=== PATIENT | male | born 1980 | race Caucasian/White ===

== ENCOUNTER 2016-08-12 16:27 | Inpatient (IN) | payer MEDICAID ==
[~2016-08-12] VITALS: Ht 185.4 cm; Wt 89.3 kg
[~2016-08-12 16:27] MED LIST: ALBU0.084; ASEN10SU3 SL; ASENAPINE MALEATE SL; BENZ0.5T14 PO; INSLISPI SC; Insulin Detemir SC; LAM100T OR; LEVO500T21 PO; METR500T PO; OLAN20TA13 PO; SERT-135 PO; SERT-160 PO
[2016-08-12] MEDS ORDERED: LORazepam 2MG/ML-1ML VIAL ONE (16:37)
[2016-08-12] MEDS ORDERED: LORazepam 2MG/ML-1ML VIAL IM ONE (17:00)
[2016-08-12] MEDS ORDERED: SODIUM CHLORIDE 0.9% 1,000 ML IVB ONE (17:00)
[2016-08-12 18:12] LABS: Basophils # (auto) 0 uL; Basophils % (auto) 0.2 % (0.0-2.0); DEFINITIVE VIEW TRANSMISSION; Eosinophils # (auto) 0.1 uL; Eosinophils % (auto) 0.9 % (0.0-7.0); Hemoglobin 20.1 g/dL (13.5-17.5); Lymphocytes # (auto) 3.4 uL; Lymphocytes % (auto) 19.4 % (10.0-50.0); Mean Corpuscular Hemoglobin 29.7 pg (28.0-32.0); Mean Corpuscular Hgb Conc. 32.3 g/dL (32.0-36.0); Mean Corpuscular Volume 91.8 fL (80.0-100.0); Mean Platelet Volume 10.5 fL (7.4-10.4); Monocytes # (auto) 1.2 uL; Monocytes % (auto) 6.7 % (0.0-12.0); Neutrophils # (auto) 12.7 uL; Neutrophils % (auto) 72.8 % (37.0-80.0); Platelet Count (auto) 236 10^3/uL (140-450); Red Cell Distribution Width 14.3 % (11.6-16.0); White Blood Cell 17.4 10^3/uL (4.4-10.8)
[2016-08-12 18:20] LABS: Albumin 3.8 g/dL (3.4-5.0); Anion Gap 23 (5-15); Blood Urea Nitrogen 13 mg/dL (7-18); Carbon Dioxide 11 mmol/L (21-32); Chloride 109 mmol/L (98-107); Glucose 315 mg/dL (74-106); Magnesium 2.7 mg/dL (1.6-2.6); Potassium 3.6 mmol/L (3.5-5.1); Sodium 143 mmol/L (136-145)
[2016-08-12 18:22] LABS: Aspartate Aminotransferase 22 U/L (15-37); BUN/Creatinine Ratio 9.4; GFR African American 75 mL/min; GFR Non-African American 62 mL/min
[2016-08-12 18:25] LABS: Alkaline Phosphatase 182 U/L (45-117); Bilirubin, Total 0.3 mg/dL (0.2-1.0)
[2016-08-12 18:42] LABS: Hematocrit 62.3 % (41.0-53.0)
[2016-08-12] MEDS ORDERED: InsuLIN R (HUMAN) 100 UNITS in SODIUM CHL 0.9% 99 ML IV SCH (19:14)
[2016-08-12] MEDS ORDERED: SODIUM CHLORIDE 0.9% 1,000 ML IV ONE (19:15)
[2016-08-12] MEDS ORDERED: cefTRIAXone 1GM/50ML D5W 50 ML IV ONE (19:15)
[2016-08-12] MEDS ORDERED: DEXTROSE (50%) 50ML SYRG IV PRN ×2 (19:15→20:00)
[2016-08-12] MEDS: SODIUM CHLORIDE 0.9% 1,000 ML IV SCH (19:42)
[2016-08-12] MEDS ORDERED: NITROGLYCERIN 0.4 MG SL TAB SL PRN (20:00)
[2016-08-12] MEDS ORDERED: ACCU-CHEK COMFORT CURVE STRIP VI SCH (20:00)
[2016-08-12] MEDS ORDERED: TEMAZEPAM 15 MG CAP PO PRN (20:00)
[2016-08-12] MEDS ORDERED: ALBUTEROL SULF 2.5 MG/0.5ML(0.5%) NEB SOLN NEB PRN (20:00)
[2016-08-12] MEDS ORDERED: LACTULOSE 20Gm/30ML SOLN PO PRN (20:00)
[2016-08-12] MEDS ORDERED: PROMETHAZINE HCL 25 MG/ML 1ML IV PRN (20:00)
[2016-08-12] MEDS ORDERED: LORazepam 0.5 MG TAB PO PRN (20:00)
[2016-08-12] MEDS ORDERED: ACETAMINOPHEN 500 MG TAB PO PRN (20:00)
[2016-08-12] MEDS ORDERED: LORazepam 2MG/ML-1ML VIAL IV PRN (20:00)
[2016-08-12] MEDS ORDERED: HYDROcodone-ACET 5/325MG TAB PO PRN (20:00)
[2016-08-12] MEDS ORDERED: MORPHINE SULF INJ 2 MG/ML SYRINGE 1ML IV PRN ×2 (20:00)
[2016-08-12 20:05] LABS: Urine Bilirubin Negative (Negative); Urine Blood 1+ /uL (Negative); Urine Color Yellow (Yellow); Urine Glucose 4+ mg/dL (Normal); Urine Ketone TRACE (Negative); Urine Nitrite Negative (Negative); Urine RBC 2 /hpf (0 - 3); Urine Urobilinogen Normal (Negative); Urine pH 5.5 (5.0-8.0)
[2016-08-12 20:16] LABS: Amylase 55 U/L (25-115)
[2016-08-12] MEDS: ACCU-CHEK COMFORT CURVE STRIP VI SCH (20:23)
[2016-08-12] MEDS: InsuLIN REG 1unit/0.01ml Soln (100units/ml) SC SCH (20:31)
[2016-08-12 22:00] VITALS: BP 138/90
[2016-08-12] MEDS: ASENAPINE MALEATE 10 MG SL SCH (22:00)
[2016-08-12] MEDS: BENZTROPINE MESY 0.5 MG TAB PO SCH (22:17)
[2016-08-12] MEDS: lamoTRIgine 100 MG TAB PO SCH (22:17)
[2016-08-12] MEDS: OLANZapine 5 MG TAB PO SCH (22:17)
[2016-08-12] MEDS ORDERED: SODIUM CHLORIDE 0.9% 1,000 ML IV SCH (23:14)
[2016-08-13] VITALS (7 sets, daily range): BP systolic 121–147; BP diastolic 71–91
[2016-08-13] MEDS ORDERED: SODIUM CHLORIDE 0.9% 1,000 ML IV SCH (01:14)
[2016-08-13] MEDS: ACCU-CHEK COMFORT CURVE STRIP VI SCH ×6 (01:35→21:25)
[2016-08-13] MEDS: InsuLIN REG 1unit/0.01ml Soln (100units/ml) SC SCH ×6 (01:36→22:22)
[2016-08-13] MEDS: SODIUM CHLORIDE 0.9% 1,000 ML IV SCH ×3 (01:37→04:52)
[2016-08-13 06:01] LABS: Basophils # (auto) 0 uL; DEFINITIVE VIEW TRANSMISSION; Eosinophils # (auto) 0 uL; Hematocrit 53.8 % (41.0-53.0); Hemoglobin 17.7 g/dL (13.5-17.5); Lymphocytes # (auto) 0.5 uL; Lymphocytes % (auto) 3.2 % (10.0-50.0); Mean Corpuscular Hemoglobin 29.4 pg (28.0-32.0); Mean Platelet Volume 9.5 fL (7.4-10.4); Monocytes # (auto) 0.5 uL; Monocytes % (auto) 3.1 % (0.0-12.0); Neutrophils # (auto) 15.4 uL; Neutrophils % (auto) 93.7 % (37.0-80.0); Platelet Count (auto) 209 10^3/uL (140-450); Red Cell Distribution Width 13.9 % (11.6-16.0); White Blood Cell 16.4 10^3/uL (4.4-10.8)
[2016-08-13 06:11] LABS: Albumin 3.2 g/dL (3.4-5.0); BUN/Creatinine Ratio 12.7; Bilirubin, Total 0.5 mg/dL (0.2-1.0); Calcium 7.7 mg/dL (8.5-10.1); Potassium 3.9 mmol/L (3.5-5.1)
[2016-08-13] MEDS: ALBUTEROL SULF 2.5 MG/0.5ML(0.5%) NEB SOLN NEB SCH ×3 (06:33→18:00)
[2016-08-13] MEDS: cefTRIAXone 1GM/50ML D5W 50 ML IV SCH (09:08)
[2016-08-13] MEDS ORDERED: AZITHROMYCIN 500MG/D5W 250ML 250 ML IV SCH (10:00)
[2016-08-13] MEDS: ASENAPINE MALEATE 10 MG SL SCH ×2 (10:00→21:55)
[2016-08-13] MEDS: ENOXAPARIN SOD 40 MG/0.4 ML SYRINGE SC SCH (10:40)
[2016-08-13] MEDS: SERTRALINE HCL 50 MG TAB PO SCH (10:41)
[2016-08-13] MEDS: PANTOPRAZOLE 40 MG TAB PO SCH (10:42)
[2016-08-13] MEDS: lamoTRIgine 100 MG TAB PO SCH ×2 (10:42→21:22)
[2016-08-13 14:49] LABS: BUN/Creatinine Ratio 9.9; Calcium 7.9 mg/dL (8.5-10.1); Potassium 3.1 mmol/L (3.5-5.1)
[2016-08-13] MEDS ORDERED: POTASSIUM CHL 20 Meq TABLET PO ONE (15:30)
[2016-08-13] MEDS ORDERED: MAGNESIUM SULFATE 1GM/100ML 100 ML IV SCH (16:00)
[2016-08-13] MEDS: MAGNESIUM SULFATE 1GM/100ML 100 ML IV SCH ×2 (17:56→19:06)
[2016-08-13] MEDS: BENZTROPINE MESY 0.5 MG TAB PO SCH (21:22)
[2016-08-13] MEDS: OLANZapine 5 MG TAB PO SCH (21:23)
[2016-08-13] MEDS: INSULIN DETEMIR(LEVEMIR) 1unit/0.01ml Soln (100units/ml) SC SCH (22:23)
[2016-08-14] VITALS: BP 131/90
[2016-08-14] MEDS: ALBUTEROL SULF 2.5 MG/0.5ML(0.5%) NEB SOLN NEB SCH ×3 (00:07→11:18)
[2016-08-14 03:50] VITALS: BP 128/80
[2016-08-14 06:07] LABS: Basophils # (auto) 0 uL; Basophils % (auto) 0.4 % (0.0-2.0); DEFINITIVE VIEW TRANSMISSION; Eosinophils # (auto) 0.1 uL; Eosinophils % (auto) 0.7 % (0.0-7.0); Hematocrit 54.8 % (41.0-53.0); Lymphocytes # (auto) 2.2 uL; Lymphocytes % (auto) 22.6 % (10.0-50.0); Mean Corpuscular Hemoglobin 29.2 pg (28.0-32.0); Mean Corpuscular Hgb Conc. 32.9 g/dL (32.0-36.0); Mean Corpuscular Volume 88.7 fL (80.0-100.0); Mean Platelet Volume 9.4 fL (7.4-10.4); Monocytes # (auto) 0.6 uL; Monocytes % (auto) 6.7 % (0.0-12.0); Neutrophils # (auto) 6.7 uL; Neutrophils % (auto) 69.6 % (37.0-80.0); Platelet Count (auto) 216 10^3/uL (140-450); White Blood Cell 9.6 10^3/uL (4.4-10.8)
[2016-08-14 06:16] LABS: Calcium 8.7 mg/dL (8.5-10.1); Potassium 4.3 mmol/L (3.5-5.1)
[2016-08-14 06:18] LABS: BUN/Creatinine Ratio 7.1
[2016-08-14] MEDS: ACCU-CHEK COMFORT CURVE STRIP VI SCH ×2 (06:22→11:48)
[2016-08-14] MEDS: InsuLIN REG 1unit/0.01ml Soln (100units/ml) SC SCH ×2 (06:22→11:48)
[2016-08-14 08:00] VITALS: BP 131/79
[2016-08-14] MEDS: cefTRIAXone 1GM/50ML D5W 50 ML IV SCH (09:13)
[2016-08-14] MEDS: ASENAPINE MALEATE 10 MG SL SCH (10:00)
[2016-08-14] MEDS: lamoTRIgine 100 MG TAB PO SCH (10:19)
[2016-08-14] MEDS: PANTOPRAZOLE 40 MG TAB PO SCH (10:19)
[2016-08-14] MEDS: ENOXAPARIN SOD 40 MG/0.4 ML SYRINGE SC SCH (10:19)
[2016-08-14] MEDS: SERTRALINE HCL 50 MG TAB PO SCH (10:19)
[2016-08-14] MEDS: INSULIN DETEMIR(LEVEMIR) 1unit/0.01ml Soln (100units/ml) SC SCH (10:20)
[2016-08-14] MEDS ORDERED: LAM100T PO (10:24)
[2016-08-14 12:00] VITALS: BP 140/94
== END 2016-08-14 13:05 | disposition home or self-care (01) | DRG 720 ==
LOC: EDBD 16:27 → ER 16:30 → TELE 16:31 → DOU IN ICU 22:39
PROVIDERS: ADMIT Internal Medicine; ATTEND Hospitalist
DX: A41.9 Sepsis, unspecified organism (principal); E10.10 Type 1 diabetes mellitus with ketoacidosis without coma; N17.9 Acute kidney failure, unspecified; J18.1 Lobar pneumonia, unspecified organism; J45.909 Unspecified asthma, uncomplicated; I10 Essential (primary) hypertension; F20.9 Schizophrenia, unspecified; G40.409 Other generalized epilepsy and epileptic syndromes, not intractable, without status epilepticus; F32.9 Major depressive disorder, single episode, unspecified; F41.9 Anxiety disorder, unspecified; Z86.73 Personal history of transient ischemic attack (TIA), and cerebral infarction without residual deficits; Z88.8 Allergy status to other drugs, medicaments and biological substances; Z91.018 Allergy to other foods
CPT/HCPCS: 36415; 51702; 70450; 71010; 80048; 80053; 80061; 80307; 80320; 81001; 82010; 82150; 82962; 83036; 83605; 83690; 83735; 85025; 85652; 87040; 87081; 87086; 94640; 95819; 96361; 96365; 96372; 99291; J0696; J1815

== ENCOUNTER 2016-10-04 17:37 | Emergency (ER) | payer MEDICAID ==
[~2016-10-04] VITALS: Ht 182.9 cm; Wt 81.6 kg
[~2016-10-04 17:37] MED LIST changes: -LAM100T OR; +LAM100T PO; -LEVO500T21 PO; -METR500T PO; -SERT-135 PO
[2016-10-04 17:49] VITALS: BP 138/86
[2016-10-04] MEDS ORDERED: IBUPROFEN 600 MG TAB PO ONE (20:15)
== END 2016-10-04 20:23 | disposition home or self-care (01) ==
LOC: ER 17:40
DX: S92.351A Displaced fracture of fifth metatarsal bone, right foot, initial encounter for closed fracture (principal); Z88.8 Allergy status to other drugs, medicaments and biological substances; Z79.899 Other long term (current) drug therapy; E11.9 Type 2 diabetes mellitus without complications; J45.909 Unspecified asthma, uncomplicated; X58.XXXA Exposure to other specified factors, initial encounter; Y93.89 Activity, other specified; Y92.89 Other specified places as the place of occurrence of the external cause; Y99.8 Other external cause status
CPT/HCPCS: 29515; 73630

== ENCOUNTER 2017-05-19 22:51 | Inpatient (IN) | payer MEDICAID ==
[~2017-05-19] VITALS: Ht 182.9 cm; Wt 90.7 kg
[2017-05-19 23:57] LABS: Basophils # (auto) 0.1 uL; Eosinophils # (auto) 0.2 uL; Lymphocytes # (auto) 2.4 uL
[2017-05-19 23:58] LABS: Basophils % (auto) 0.9 % (0.0-2.0); Hematocrit 54.8 % (41.0-53.0); Hemoglobin 19.1 g/dL (13.5-17.5); Lymphocytes % (auto) 25.6 % (10.0-50.0); Mean Corpuscular Hemoglobin 31.6 pg (28.0-32.0); Mean Corpuscular Hgb Conc. 34.7 g/dL (32.0-36.0); Mean Corpuscular Volume 91.1 fL (80.0-100.0); Monocytes # (auto) 0.6 uL; Monocytes % (auto) 6.8 % (0.0-12.0); Neutrophils # (auto) 6.1 uL; Neutrophils % (auto) 64.7 % (37.0-80.0); Nucleated Red Blood Cells % 0.3 %; Platelet Count (auto) 301 10^3/uL (140-450); Red Blood Cells 6.02 10^6/uL (4.5-5.90); Red Cell Distribution Width 13.5 % (11.8-14.3); White Blood Cell 9.4 10^3/uL (4.4-10.8)
[2017-05-20 00:03] LABS: Urine Amorphous Crystal FEW /hpf (None Seen); Urine Bacteria NONE SEEN /hpf (None Seen); Urine Blood Negative /uL (Negative); Urine Mucus FEW (None Seen); Urine Specific Gravity 1.009 (1.001-1.035); Urine WBC 2 /hpf (0 - 3)
[2017-05-20 00:10] LABS: INR 1.04 (0.9-1.15); Prothrombin Time 11.3 sec (9.37-12.3)
[2017-05-20 00:11] LABS: Albumin 3.7 g/dL (3.4-5.0); BUN/Creatinine Ratio 9.2; Bilirubin, Total 0.4 mg/dL (0.2-1.0); Calcium 10.4 mg/dL (8.5-10.1); Potassium 3.8 mmol/L (3.5-5.1); Total Protein 8.5 g/dL (6.4-8.2)
[2017-05-20 07:16] LABS: Amylase 25 U/L (25-115); Lipase 67 U/L (73-393)
[2017-05-20] MEDS ORDERED: AZTREONAM 1GM INJ 1 GM in D5W 5% 50 ML IV ONE (07:30)
[2017-05-20] MEDS ORDERED: SODIUM CHLORIDE 0.9% 1,000 ML IV ONE (07:30)
[2017-05-20] MEDS ORDERED: ONDANSETRON HCL 4 MG/2 ML VIAL IV ONE (07:45)
[2017-05-20] MEDS: AZITHROMYCIN 500MG/ 250ML 250 ML IV ONE ×2 (07:46→08:47)
[2017-05-20] MEDS ORDERED: LACTULOSE 20Gm/30ML SOLN PO PRN (10:45)
[2017-05-20] MEDS ORDERED: ALBUTEROL SULF 2.5 MG/0.5ML(0.5%) NEB SOLN NEB PRN (10:45)
[2017-05-20] MEDS ORDERED: LORazepam 0.5 MG TAB PO PRN (10:45)
[2017-05-20] MEDS ORDERED: OSELTAMIVIR 75 MG CAP PO ONE (10:45)
[2017-05-20] MEDS ORDERED: MORPHINE SULFATE 4 MG/ML SYR/VIAL IV PRN ×2 (10:45)
[2017-05-20] MEDS ORDERED: PROMETHAZINE HCL 25 MG/ML 1ML IV PRN (10:45)
[2017-05-20] MEDS ORDERED: ACETAMINOPHEN 500 MG TAB PO PRN (10:45)
[2017-05-20] MEDS ORDERED: DEXTROSE (50%) 50ML SYRG IV PRN ×2 (10:45→13:15)
[2017-05-20] MEDS ORDERED: HYDROcodone-ACET 5/325MG TAB PO PRN (10:45)
[2017-05-20] MEDS ORDERED: TEMAZEPAM 15 MG CAP PO PRN (10:45)
[2017-05-20] MEDS ORDERED: NITROGLYCERIN 0.4 MG SL TAB SL PRN (10:45)
[2017-05-20] MEDS ORDERED: SODIUM CHLORIDE 0.9 % NEB SOLN 3ML NEB ONE (11:04)
[2017-05-20] MEDS: SODIUM CHLORIDE 0.9% 1,000 ML IV SCH ×2 (11:10→23:56)
[2017-05-20] MEDS: FAMOTIDINE (10MG/ML) 2ML VL IV SCH ×2 (11:10→21:17)
[2017-05-20] MEDS: cefTRIAXone 1GM/10ml IVPUSH 10 ML IV SCH (11:10)
[2017-05-20] MEDS ORDERED: InsuLIN REG 1unit/0.01ml Soln (100units/ml) SC SCH (11:30)
[2017-05-20] MEDS ORDERED: ACCU-CHEK COMFORT CURVE STRIP VI SCH (11:30)
[2017-05-20] MEDS ORDERED: INSULIN LANTUS (GLARGINE) 1 /0.01ml (100units/ml) SC SCH (11:45)
[2017-05-20 11:50] VITALS: BP 154/97
[2017-05-20] MEDS ORDERED: INSU70IN3 SC ×2 (12:01)
[2017-05-20] MEDS ORDERED: SERT-274 PO (12:01)
[2017-05-20] MEDS: ALBUTEROL SULF 2.5 MG/0.5ML(0.5%) NEB SOLN NEB SCH ×2 (12:35→17:50)
[2017-05-20] MEDS: ACCU-CHEK COMFORT CURVE STRIP VI SCH ×2 (16:36→20:00)
[2017-05-20] MEDS: InsuLIN REG 1unit/0.01ml Soln (100units/ml) SC SCH ×2 (16:37→20:00)
[2017-05-20 17:00] VITALS: BP 138/83
[2017-05-20] MEDS ORDERED: OLANZapine 5 MG TAB PO SCH (18:00)
[2017-05-20] MEDS ORDERED: OLANZAPINE PO SCH (18:00)
[2017-05-20] MEDS: lamoTRIgine 100 MG TAB PO SCH (21:16)
[2017-05-20] MEDS: INSULIN 70/30 1unit/0.01ml Susp (100units/ml) SC SCH (21:19)
[2017-05-20] MEDS: ASENAPINE MALEATE 10 MG SL SCH (21:19)
[2017-05-20 21:36] VITALS: BP 138/83
[2017-05-20 22:00] VITALS: BP 135/71
[2017-05-20] MEDS ORDERED: OSELTAMIVIR 75 MG CAP PO SCH (22:00)
[2017-05-20] MEDS ORDERED: BENZTROPINE MESY 0.5 MG TAB PO SCH (22:00)
[2017-05-20] MEDS ORDERED: ASENAPINE MALEATE SL SCH (22:00)
[2017-05-21] MEDS: ALBUTEROL SULF 2.5 MG/0.5ML(0.5%) NEB SOLN NEB SCH ×3 (00:51→13:28)
[2017-05-21] MEDS: InsuLIN REG 1unit/0.01ml Soln (100units/ml) SC SCH ×4 (04:00→12:33)
[2017-05-21] MEDS: ACCU-CHEK COMFORT CURVE STRIP VI SCH ×4 (04:05→12:32)
[2017-05-21 05:34] VITALS: BP 143/84
[2017-05-21 06:45] LABS: Basophils # (auto) 0.1 uL; Basophils % (auto) 0.6 % (0.0-2.0); Eosinophils # (auto) 0.1 uL; Eosinophils % (auto) 0.7 % (0.0-7.0); Hematocrit 50.9 % (41.0-53.0); Hemoglobin 17.2 g/dL (13.5-17.5); Lymphocytes # (auto) 1.5 uL; Mean Corpuscular Hemoglobin 31.4 pg (28.0-32.0); Mean Corpuscular Hgb Conc. 33.9 g/dL (32.0-36.0); Mean Corpuscular Volume 92.6 fL (80.0-100.0); Monocytes # (auto) 0.7 uL; Monocytes % (auto) 6.9 % (0.0-12.0); Neutrophils # (auto) 8.2 uL; Neutrophils % (auto) 77.8 % (37.0-80.0); Nucleated Red Blood Cells % 0.1 %; Platelet Count (auto) 267 10^3/uL (140-450); Red Blood Cells 5.49 10^6/uL (4.5-5.90); Red Cell Distribution Width 13.6 % (11.8-14.3); White Blood Cell 10.6 10^3/uL (4.4-10.8)
[2017-05-21 07:04] LABS: Albumin 3.2 g/dL (3.4-5.0); BUN/Creatinine Ratio 13.3; Total Protein 7.3 g/dL (6.4-8.2)
[2017-05-21 09:00] VITALS: BP 140/66
[2017-05-21] MEDS: FAMOTIDINE (10MG/ML) 2ML VL IV SCH (09:45)
[2017-05-21] MEDS: cefTRIAXone 1GM/10ml IVPUSH 10 ML IV SCH (09:45)
[2017-05-21] MEDS: ASENAPINE MALEATE 10 MG SL SCH (09:46)
[2017-05-21] MEDS: lamoTRIgine 100 MG TAB PO SCH (09:46)
[2017-05-21] MEDS ORDERED: AZITHROMYCIN 500MG/ 250ML 250 ML IV SCH (10:00)
[2017-05-21] MEDS ORDERED: SERTRALINE HCL PO SCH (10:00)
[2017-05-21] MEDS ORDERED: SERTRALINE HCL 50 MG TAB PO SCH (10:00)
[2017-05-21] MEDS: INSULIN 70/30 1unit/0.01ml Susp (100units/ml) SC SCH (10:28)
[2017-05-21 13:00] VITALS: BP 125/92
[2017-05-21] MEDS ORDERED: ALBUAER3 IN (13:48)
[2017-05-21] MEDS ORDERED: LEVO500T21 PO (13:48)
[2017-05-21] MEDS ORDERED: IPRIH INH (13:48)
[2017-05-21] MEDS ORDERED: IOHEXOL 300 MG/ML 100ML BOTTLE IJ ONE (15:46)
[2017-05-21 16:42] VITALS: BP 125/92
[2017-05-21 17:00] VITALS: BP 152/94
== END 2017-05-21 18:00 | disposition home or self-care (01) ==
LOC: ER 22:53 → TELE 22:54 → TELE-CENTR 05-20 11:46
PROVIDERS: ADMIT Internal Medicine; ATTEND Internal Medicine
DX: K76.89 Other specified diseases of liver (principal); J18.1 Lobar pneumonia, unspecified organism; F20.9 Schizophrenia, unspecified; E83.52 Hypercalcemia; D18.03 Hemangioma of intra-abdominal structures; I10 Essential (primary) hypertension; F31.9 Bipolar disorder, unspecified; E10.9 Type 1 diabetes mellitus without complications; J45.909 Unspecified asthma, uncomplicated; F41.9 Anxiety disorder, unspecified; Z88.8 Allergy status to other drugs, medicaments and biological substances; Z91.018 Allergy to other foods; Z79.899 Other long term (current) drug therapy; Z79.4 Long term (current) use of insulin; Z86.73 Personal history of transient ischemic attack (TIA), and cerebral infarction without residual deficits
CPT/HCPCS: 36415; 71046; 74176; 74178; 76705; 80053; 80061; 81001; 82150; 82962; 83036; 83690; 85025; 85610; 85730; 86850; 86900; 86901; 87040; 87804; 94640; 96361; 96367; 96374; 96375; J1815; J2405; J3490; J7060

== ENCOUNTER 2017-05-22 07:16 | Emergency (ER) | payer MEDICAID ==
[~2017-05-22] VITALS: Ht 185.4 cm; Wt 99.8 kg
[~2017-05-22 07:16] MED LIST changes: +ALBUAER3 IN; -BENZ0.5T14 PO; -INSLISPI SC; +INSU70IN3 SC; +IPRIH INH; -Insulin Detemir SC; -LAM100T PO; +LEVO500T21 PO; -SERT-160 PO; +SERT-274 PO
[2017-05-22 08:09] LABS: Basophils # (auto) 0.1 uL; Basophils % (auto) 0.7 % (0.0-2.0); Eosinophils # (auto) 0.1 uL; Eosinophils % (auto) 0.7 % (0.0-7.0); Hematocrit 49.4 % (41.0-53.0); Hemoglobin 16.7 g/dL (13.5-17.5); Lymphocytes # (auto) 1.2 uL; Lymphocytes % (auto) 13.1 % (10.0-50.0); Mean Corpuscular Hemoglobin 31.7 pg (28.0-32.0); Mean Corpuscular Hgb Conc. 33.9 g/dL (32.0-36.0); Mean Corpuscular Volume 93.4 fL (80.0-100.0); Monocytes # (auto) 0.4 uL; Monocytes % (auto) 4.5 % (0.0-12.0); Neutrophils # (auto) 7.7 uL; Platelet Count (auto) 251 10^3/uL (140-450); Red Blood Cells 5.28 10^6/uL (4.5-5.90); Red Cell Distribution Width 13.7 % (11.8-14.3); White Blood Cell 9.5 10^3/uL (4.4-10.8)
[2017-05-22 08:25] LABS: Albumin 3.3 g/dL (3.4-5.0); BUN/Creatinine Ratio 8.9; Bilirubin, Total 0.6 mg/dL (0.2-1.0); Calcium 8.5 mg/dL (8.5-10.1); Potassium 4.4 mmol/L (3.5-5.1); Total Protein 7.7 g/dL (6.4-8.2)
[2017-05-22] MEDS ORDERED: SODIUM CHLORIDE 0.9% 1,000 ML IV ONE (08:42)
[2017-05-22] MEDS ORDERED: LEVETIRACETAM INJ 1,000 MG in D5W 5% 100 ML IV ONE (08:45)
[2017-05-22] MEDS ORDERED: LORazepam 2MG/ML-1ML VIAL IV ONE (08:45)
[2017-05-22] MEDS ORDERED: LEVETIRACETAM INJ 1,000 MG in SODIUM CHL 0.9% 100 ML IV ONE (09:15)
[2017-05-22 11:28] LABS: Alcohol, Urine < 3.0 mg/dL (0-5); Amphetamine Screen, Urine NEGATIVE (NEGATIVE); Barbiturate Scree,Urine NEGATIVE (NEGATIVE); Benzodiazephine Screen, Urine NEGATIVE (NEGATIVE); Cannabinoid Screen, Urine POSITIVE (NEGATIVE); Cocaine Screen, Urine NEGATIVE (NEGATIVE); Opiate Scree,Urine NEGATIVE (NEGATIVE); Phencyclidine Screen, Urine NEGATIVE (NEGATIVE)
[2017-05-22 11:29] LABS: Urine Bacteria NONE SEEN /hpf (None Seen); Urine Blood Negative /uL (Negative); Urine Specific Gravity 1.024 (1.001-1.035); Urine WBC 16 /hpf (0 - 3)
[2017-05-22 11:42] VITALS: BP 145/85
== END 2017-05-22 14:00 | disposition home or self-care (01) ==
LOC: ER 07:16 → EDUNIT# 07:16 → ER 14:00
DX: G40.909 Epilepsy, unspecified, not intractable, without status epilepticus (principal); E11.65 Type 2 diabetes mellitus with hyperglycemia; F12.10 Cannabis abuse, uncomplicated; E44.1 Mild protein-calorie malnutrition; N39.0 Urinary tract infection, site not specified; J45.909 Unspecified asthma, uncomplicated; F32.9 Major depressive disorder, single episode, unspecified; F20.9 Schizophrenia, unspecified; F41.9 Anxiety disorder, unspecified; Z79.4 Long term (current) use of insulin
CPT/HCPCS: 36415; 71045; 80053; 80307; 81001; 82962; 83735; 85025; 93005; 96365; 96375; 99285; J1953; J2060; J7030; J7060

== ENCOUNTER 2017-08-08 07:32 | Emergency (ER) | payer MEDICAID ==
[~2017-08-08] VITALS: Ht 185.4 cm; Wt 90.7 kg
[2017-08-08 10:35] VITALS: BP 144/102
== END 2017-08-08 10:36 | disposition home or self-care (01) ==
LOC: ER 07:34
DX: S92.344A Nondisplaced fracture of fourth metatarsal bone, right foot, initial encounter for closed fracture (principal); E11.65 Type 2 diabetes mellitus with hyperglycemia; I10 Essential (primary) hypertension; J45.909 Unspecified asthma, uncomplicated; Z91.018 Allergy to other foods; Z88.8 Allergy status to other drugs, medicaments and biological substances; W54.1XXA Struck by dog, initial encounter; Y93.89 Activity, other specified; Y92.89 Other specified places as the place of occurrence of the external cause; Y99.8 Other external cause status
CPT/HCPCS: 29515; 73630; 82962

== ENCOUNTER 2017-09-03 05:43 | Emergency (ER) | payer MEDICAID ==
[~2017-09-03] VITALS: Ht 182.9 cm; Wt 90.7 kg
[2017-09-03 06:00] VITALS: BP 160/99
== END 2017-09-03 07:49 | disposition home or self-care (01) ==
LOC: ER 05:45
DX: S05.01XA Injury of conjunctiva and corneal abrasion without foreign body, right eye, initial encounter (principal); J45.909 Unspecified asthma, uncomplicated; E11.9 Type 2 diabetes mellitus without complications; Z79.899 Other long term (current) drug therapy; X58.XXXA Exposure to other specified factors, initial encounter; Y93.9 Activity, unspecified; Y92.89 Other specified places as the place of occurrence of the external cause; Y99.8 Other external cause status; Z88.8 Allergy status to other drugs, medicaments and biological substances

== ENCOUNTER 2018-02-27 17:26 | Emergency (ER) | payer MEDICAID ==
[~2018-02-27] VITALS: Ht 182.9 cm; Wt 81.6 kg
[~2018-02-27 17:26] MED LIST changes: +KEP500T PO; -LEVO500T21 PO
[2018-02-27 17:44] VITALS: BP 154/100
== END 2018-02-27 21:25 | disposition home or self-care (01) ==
LOC: ER 17:31
DX: S61.452A Open bite of left hand, initial encounter (principal); L03.114 Cellulitis of left upper limb; J45.909 Unspecified asthma, uncomplicated; E11.9 Type 2 diabetes mellitus without complications; Z91.09 Other allergy status, other than to drugs and biological substances; Z79.4 Long term (current) use of insulin; W54.0XXA Bitten by dog, initial encounter; Y93.89 Activity, other specified; Y92.098 Other place in other non-institutional residence as the place of occurrence of the external cause; Y99.8 Other external cause status
CPT/HCPCS: 73130

== ENCOUNTER 2018-06-22 19:23 | Inpatient (IN) | payer MEDICAID ==
[~2018-06-22] VITALS: Ht 182.9 cm; Wt 82.9 kg
[2018-06-22 21:08] LABS: Basophils # (auto) 0.1 uL; Nucleated Red Blood Cells % 0.1 %
[2018-06-22 21:10] LABS: Basophils % (auto) 0.9 % (0.0-2.0); Eosinophils # (auto) 0.2 uL; Hematocrit 55.6 % (41.0-53.0); Hemoglobin 18.5 g/dL (13.5-17.5); Lymphocytes # (auto) 1.6 uL; Lymphocytes % (auto) 13.1 % (10.0-50.0); Mean Corpuscular Hemoglobin 30.2 pg (28.0-32.0); Mean Corpuscular Hgb Conc. 33.2 g/dL (32.0-36.0); Mean Corpuscular Volume 90.9 fL (80.0-100.0); Monocytes # (auto) 0.7 uL; Monocytes % (auto) 5.3 % (0.0-12.0); Neutrophils # (auto) 9.8 uL; Neutrophils % (auto) 78.7 % (37.0-80.0); Platelet Count (auto) 309 10^3/uL (140-450); Red Blood Cells 6.12 10^6/uL (4.5-5.90); Red Cell Distribution Width 13.7 % (11.8-14.3); White Blood Cell 12.5 10^3/uL (4.4-10.8)
[2018-06-22 21:20] LABS: Potassium 3.7 mmol/L (3.5-5.1)
[2018-06-22 21:24] LABS: Albumin 3.2 g/dL (3.4-5.0); Calcium 8.7 mg/dL (8.5-10.1)
[2018-06-22 21:27] LABS: BUN/Creatinine Ratio 7.6
[2018-06-22 21:30] LABS: Bilirubin, Total 0.4 mg/dL (0.2-1.0); Total Protein 7.8 g/dL (6.4-8.2)
[2018-06-23] MEDS ORDERED: LORazepam 2MG/ML-1ML VIAL ONE (07:32)
[2018-06-23] MEDS ORDERED: LEVETIRACETAM INJ 1,000 MG in D5W 5% 100 ML IV ONE ×2 (07:45→08:15)
[2018-06-23] MEDS ORDERED: LORazepam 2MG/ML-1ML VIAL IV ONE (08:15)
[2018-06-23] MEDS ORDERED: NITROGLYCERIN 0.4 MG SL TAB SL PRN (09:45)
[2018-06-23] MEDS ORDERED: DEXTROSE (50%) 50ML SYRG IV PRN (09:45)
[2018-06-23] MEDS ORDERED: MORPHINE SULF INJ 2 MG/ML SYRINGE 1ML IV PRN (09:45)
[2018-06-23] MEDS ORDERED: LORazepam 2MG/ML-1ML VIAL IV PRN (09:45)
[2018-06-23] MEDS ORDERED: ASENAPINE MALEATE SL SCH (10:00)
[2018-06-23] MEDS: LEVETIRACETAM INJ 750 MG in D5W 5% 100 ML IV SCH ×2 (10:00→21:49)
[2018-06-23] MEDS: SERTRALINE HCL 50 MG TAB PO SCH (10:28)
[2018-06-23] MEDS ORDERED: IOHEXOL 300 MG/ML 100ML BOTTLE IJ ONE (10:38)
[2018-06-23] MEDS: ACCU-CHEK COMFORT CURVE STRIP VI SCH ×3 (11:45→21:49)
[2018-06-23] MEDS: InsuLIN REG 1unit/0.01ml Soln (100units/ml) SC SCH ×3 (11:45→21:50)
[2018-06-23] MEDS ORDERED: OLANZapine 5 MG TAB PO SCH (18:00)
[2018-06-23 20:00] VITALS: BP 116/71
--- NOTE | 2018-06-23 20:00 | NUR ---
Telemetry admit from [facility] admitted to Telemetry unit. Patient oriented to GERALD LINDSEY OCA, primary RN, unit, room, bed, and unit policies regarding patient care and visiting hours. Patient now on continuous telemetry monitoring, tele box #[id number] and telemetry reading on arrival to unit is sinus tach. Patient placed on bedside oxygen, weighed by bedscale and encouraged to call if they need something. All questions and concerns addressed, patient verbalized understanding. Bed in lowest locked position, call light within reach, side rails up x2. Will continue to monitor Q1hr and PRN.
[2018-06-23 22:00] VITALS: BP 116/71
[2018-06-24 04:38] VITALS: BP 132/72
[2018-06-24] MEDS: ACCU-CHEK COMFORT CURVE STRIP VI SCH ×2 (06:39→11:28)
[2018-06-24] MEDS: InsuLIN REG 1unit/0.01ml Soln (100units/ml) SC SCH ×2 (06:40→11:43)
--- NOTE | 2018-06-24 07:20 | NUR ---
Opening Shift Note Received report from Karina RIDLEY. Assumed care of patient, asleep. No S/S of distress/SOB or pain. Noted padded side rails. Placed call light within reach, kept 2 side rails sup, will continue to monitor for changes Q1hr and PRN.
[2018-06-24 08:00] VITALS: BP 120/71
[2018-06-24 09:00] VITALS: BP 120/71
[2018-06-24] MEDS: SERTRALINE HCL 50 MG TAB PO SCH (09:38)
[2018-06-24] MEDS ORDERED: LEVE750T15 PO (09:42)
--- NOTE | 2018-06-24 09:50 | NUR ---
Dr. Kortney Tariq at bedside.
[2018-06-24 10:00] LABS: Basophils # (auto) 0.1 uL; Eosinophils # (auto) 0.1 uL; Lymphocytes # (auto) 1.4 uL; Monocytes # (auto) 0.6 uL; Nucleated Red Blood Cells % 0.1 %
--- NOTE | 2018-06-24 10:00 | NUR ---
PATIENT REFUSED HOME HEALTH SERVICES PER LILLIAN, CORRECTIONAL THERAPY DIRECTOR.
[2018-06-24 10:02] LABS: Basophils % (auto) 0.7 % (0.0-2.0); Eosinophils % (auto) 0.8 % (0.0-7.0); Hemoglobin 19.3 g/dL (13.5-17.5); Lymphocytes % (auto) 15.1 % (10.0-50.0); Mean Corpuscular Hemoglobin 30.3 pg (28.0-32.0); Mean Corpuscular Hgb Conc. 33.1 g/dL (32.0-36.0); Mean Corpuscular Volume 91.7 fL (80.0-100.0); Monocytes % (auto) 6.4 % (0.0-12.0); Neutrophils # (auto) 7.4 uL; Platelet Count (auto) 305 10^3/uL (140-450); Red Blood Cells 6.35 10^6/uL (4.5-5.90); Red Cell Distribution Width 14.2 % (11.8-14.3); White Blood Cell 9.6 10^3/uL (4.4-10.8)
[2018-06-24 10:03] LABS: Hematocrit 58.2 % (41.0-53.0)
--- NOTE | 2018-06-24 10:15 | NUR ---
CALLED DR. ANNA MONTALVO'S OFFICE. INFORMED PATIENT HAS METAL IMPLANTS IN HIS BRAIN, SAID TO CANCEL THE TEST, AND SHE HAS NO FURTHER RECOMMENDATIONS, WILL SIGN OFF. INFORMED WARDSPERSON BHAVNA THAT SAID TEST IS CANCELLED.
[2018-06-24] MEDS: LEVETIRACETAM INJ 750 MG in D5W 5% 100 ML IV SCH (10:30)
[2018-06-24 13:00] VITALS: BP 124/82
--- NOTE | 2018-06-24 13:45 | NUR ---
CALLED DR. ANNA MONTALVO'S OFFICE TO MAKE A NEUROLOGY APPOINTMENT FOR THE PATIENT. WINDOW TRIMMER SAID TO GET REFERRAL LETTER FIRST FROM PRIMARY CARE DOCTOR.
--- NOTE | 2018-06-24 14:35 | NUR ---
CALLED DR. IVAN DOWNS'S OFFICE. CALL WENT STRAIGHT TO VOICEMAIL, LEFT A MESSAGE ABOUT GI CLEARANCE. WILL WAIT FOR CALL BACK.
--- NOTE | 2018-06-24 14:38 | NUR ---
MD returned call Dr. Sy's operating room assistant returned call, updated on patient status and reason for call, said she will ff up Dr Sy to see the patient if can be cleared today for discharge. Continue care.
--- NOTE | 2018-06-24 15:05 | NUR ---
Dr. Sy at bedside. GI consult done. Received verbal order that patient is cleared GI nj. Instructed patient to have colonoscopy as outpatient. Patient verbalized understanding.
[2018-06-24 15:25] VITALS: BP 124/82
--- NOTE | 2018-06-24 15:30 | NUR ---
TOOK PICTURE OF SCRATCH ON RIGHT UPPER EXTREMITY. PATIENT SAID IT CAME FROM A "DOG BITE". FILLED OUT WOUND CARE FORM REFERENCE FOR DISCHARGE.
--- NOTE | 2018-06-24 16:21 | NUR ---
assessment Patient is a 38 year old male who is alert and oriented. Patients cognitive abilities are intact. Prior to admission patient lived home with friends and functioned independently. Patient informed me he is able to care for his own ADLs. Per patient he will return home to his prior living arrangements post discharge and family will transport him home. Patient has no need for DME. Patients PCP is Dr Gonzalez. Patient has no post discharge needs. Patient feels safe returning home on discharge. I informed patient he has a right to speak to a health and social care teacher regarding all care. I informed patient he has a right to participate in any and all discharge planning. Patient is aware of visiting hours on the hospital floor. I informed patient he has a right to privacy. Patient does not have a POA and advanced directive. I have offered patient information on POA and advanced directives. I informed the patient the advantages and benefits of having an Advanced Directive. Patient verbalized understanding and agreed to discharge plan. Per consult home health safety evaluation. Patient is refusing home health safety eval. RN notified. Addendum: 06/24/18 at 1624 by Terra Teixeira Amended: Links added.
--- NOTE | 2018-06-24 16:42 | NUR ---
Discharge instructions given as ordered. Encourage to follow up with PMD as instructed. All questions and concerns addressed. Patient verbalized understanding. IV removed with catheter intact, pressure dressing applied. Telemetry unit returned to [facility]. Patient went home ambulatory w/ steady gait with all personal belongings, accompanied by family member. No distress noted at time of departure.
== END 2018-06-24 18:31 | disposition home health service (06) | DRG 53 ==
LOC: ER 19:23 → TELE 06-23 09:52 → TELE-CENTR 06-23 20:05
PROVIDERS: ADMIT Internal Medicine; ATTEND Internal Medicine
DX: G40.409 Other generalized epilepsy and epileptic syndromes, not intractable, without status epilepticus (principal); F20.9 Schizophrenia, unspecified; B34.9 Viral infection, unspecified; Z79.4 Long term (current) use of insulin; F41.9 Anxiety disorder, unspecified; D18.03 Hemangioma of intra-abdominal structures; E11.9 Type 2 diabetes mellitus without complications; F31.9 Bipolar disorder, unspecified; J45.909 Unspecified asthma, uncomplicated; K64.9 Unspecified hemorrhoids; K76.9 Liver disease, unspecified; M47.816 Spondylosis without myelopathy or radiculopathy, lumbar region; Z79.899 Other long term (current) drug therapy; Z80.0 Family history of malignant neoplasm of digestive organs; Z82.5 Family history of asthma and other chronic lower respiratory diseases; Z91.19 Patient's noncompliance with other medical treatment and regimen; Z91.018 Allergy to other foods
CPT/HCPCS: 36415; 70450; 74176; 74177; 80053; 82962; 85025; 96365; 96375; G0378; J1815; J7060

== ENCOUNTER 2020-08-29 01:27 | Inpatient (IN) | payer MEDICAID ==
[~2020-08-29] VITALS: Ht 182.9 cm; Wt 76.0 kg
[~2020-08-29 01:27] MED LIST changes: -KEP500T PO; +LEVE750T15 PO; +OLAN20TA PO; -OLAN20TA13 PO; -SERT-274 PO; +SERT50TA19 PO
[2020-08-29 02:18] LABS: Basophils # (auto) 0.1 10 ^3/uL (0-0.2); Basophils % (auto) 1.2 % (0.0-2.0); Eosinophils # (auto) 0.6 10 ^3/uL (0-0.8); Eosinophils % (auto) 7.9 % (0.0-7.0); Hematocrit 47.7 % (41.0-53.0); Hemoglobin 16.2 g/dL (13.5-17.5); Lymphocytes # (auto) 1.7 10 ^3/uL (0.4-5.4); Lymphocytes % (auto) 23.6 % (10.0-50.0); Mean Corpuscular Hemoglobin 29.8 pg (28.0-32.0); Mean Corpuscular Volume 87.6 fL (80.0-100.0); Monocytes # (auto) 0.6 10 ^3/uL (0-1.3); Monocytes % (auto) 7.5 % (0.0-12.0); Neutrophils # (auto) 4.4 10 ^3/uL (1.6-8.6); Neutrophils % (auto) 59.8 % (37.0-80.0); Nucleated Red Blood Cells % 0.4 %; Platelet Count (auto) 239 10^3/uL (140-450); Red Blood Cells 5.45 10^6/uL (4.5-5.90); Red Cell Distribution Width 13.8 % (11.8-14.3); White Blood Cell 7.3 10^3/uL (4.4-10.8)
[2020-08-29 02:37] LABS: Albumin 3.3 g/dL (3.4-5.0); Potassium 3.9 mmol/L (3.5-5.1)
[2020-08-29 02:42] LABS: Bilirubin, Total 0.4 mg/dL (0.2-1.0); Total Protein 7.5 g/dL (6.4-8.2)
[2020-08-29] MEDS ORDERED: ONDANSETRON HCL 4 MG/2 ML VIAL IV PRN (06:15)
[2020-08-29] MEDS ORDERED: DEXTROSE (50%) 50ML SYRG IV PRN (06:15)
[2020-08-29] MEDS ORDERED: DIVA250T12 PO (06:32)
[2020-08-29] MEDS ORDERED: BENZ1TAB2 PO (06:32)
[2020-08-29] MEDS ORDERED: CARI1CAP4 PO (06:32)
[2020-08-29] MEDS: ACCU-CHEK COMFORT CURVE STRIP VI SCH ×4 (08:00→21:44)
[2020-08-29] MEDS: InsuLIN REG 1unit/0.01ml Soln (100units/ml) SC SCH ×4 (08:02→21:44)
[2020-08-29] MEDS ORDERED: ASPirin-EC 81 mg tab PO SCH (10:00)
[2020-08-29 10:15] VITALS: BP 136/107
[2020-08-29] MEDS ORDERED: INSU100I26 SC (10:32)
[2020-08-29] MEDS ORDERED: INSUINJ2 SC (10:32)
[2020-08-29 11:19] LABS: Basophils # (auto) 0.1 10 ^3/uL (0-0.2); Basophils % (auto) 0.8 % (0.0-2.0); Eosinophils # (auto) 0.4 10 ^3/uL (0-0.8); Eosinophils % (auto) 5.2 % (0.0-7.0); Hematocrit 47.6 % (41.0-53.0); Hemoglobin 16.4 g/dL (13.5-17.5); Lymphocytes # (auto) 1.6 10 ^3/uL (0.4-5.4); Lymphocytes % (auto) 23.8 % (10.0-50.0); Mean Corpuscular Hemoglobin 29.9 pg (28.0-32.0); Mean Corpuscular Hgb Conc. 34.3 g/dL (32.0-36.0); Mean Corpuscular Volume 87.1 fL (80.0-100.0); Monocytes # (auto) 0.5 10 ^3/uL (0-1.3); Monocytes % (auto) 7.7 % (0.0-12.0); Neutrophils # (auto) 4.2 10 ^3/uL (1.6-8.6); Neutrophils % (auto) 62.5 % (37.0-80.0); Nucleated Red Blood Cells % 0.2 %; Platelet Count (auto) 244 10^3/uL (140-450); Red Blood Cells 5.47 10^6/uL (4.5-5.90); Red Cell Distribution Width 13.6 % (11.8-14.3); White Blood Cell 6.7 10^3/uL (4.4-10.8)
[2020-08-29 11:26] LABS: Calcium 8.8 mg/dL (8.5-10.1); Potassium 4.1 mmol/L (3.5-5.1)
[2020-08-29 11:29] LABS: BUN/Creatinine Ratio 19.7
[2020-08-29 13:00] VITALS: BP 145/94
[2020-08-29] MEDS ORDERED: levETIRAcetam 500 MG TAB PO SCH (15:00)
[2020-08-29] MEDS: levETIRAcetam 500 MG TAB PO SCH ×2 (16:20→21:43)
[2020-08-29 17:00] VITALS: BP 133/88
[2020-08-29 22:00] VITALS: BP 129/85
[2020-08-29] MEDS ORDERED: ATORVASTATIN 20 MG TAB PO SCH (22:00)
[2020-08-29] MEDS ORDERED: INSULIN NPH Isophane (HUMAN) 1unit/0.01ml Susp(100units/ml) SC SCH (22:00)
[2020-08-30 01:16] VITALS: BP 129/85
[2020-08-30] MEDS ORDERED: SERTRALINE HCL 50 MG TAB PO SCH (07:00)
[2020-08-30] MEDS ORDERED: CARIPRAZINE HCL 6 MG PO SCH ×2 (07:00)
[2020-08-30] MEDS ORDERED: BENZTROPINE MESY 0.5 MG TAB PO SCH (07:00)
== END 2020-08-30 01:40 | disposition short-term general hospital (02) | DRG 55 ==
LOC: ER 01:29 → TELE 06:10 → TELE-WESTW 10:24
PROVIDERS: ADMIT Hospitalist; ATTEND Hospitalist
DX: S06.5X0A Traumatic subdural hemorrhage without loss of consciousness, initial encounter (principal); F20.9 Schizophrenia, unspecified; G40.409 Other generalized epilepsy and epileptic syndromes, not intractable, without status epilepticus; E10.9 Type 1 diabetes mellitus without complications; Z20.822 Contact with and (suspected) exposure to COVID-19; F09 Unspecified mental disorder due to known physiological condition; F12.90 Cannabis use, unspecified, uncomplicated; F17.200 Nicotine dependence, unspecified, uncomplicated; F31.9 Bipolar disorder, unspecified; I10 Essential (primary) hypertension; R47.81 Slurred speech; F41.9 Anxiety disorder, unspecified; J45.909 Unspecified asthma, uncomplicated; Z79.4 Long term (current) use of insulin; Z82.5 Family history of asthma and other chronic lower respiratory diseases; Z86.73 Personal history of transient ischemic attack (TIA), and cerebral infarction without residual deficits; Z98.2 Presence of cerebrospinal fluid drainage device; Z79.899 Other long term (current) drug therapy
CPT/HCPCS: 36415; 70450; 70551; 71045; 80048; 80053; 80061; 82962; 84443; 84484; 85025; 85049; 87426; 93005; 93306; 93886; G0378; J1815

== ENCOUNTER 2022-12-30 04:25 | Inpatient (IN) | payer MEDICAID ==
[~2022-12-30] VITALS: Ht 182.9 cm; Wt 84.7 kg
[~2022-12-30 04:25] MED LIST changes: -ALBU0.084; -ASEN10SU3 SL; -ASENAPINE MALEATE SL; +BENZ1TAB6 PO; +CARI1CAP4 PO; +DIVA250T12 PO; +INSU100I26 SC; -INSU70IN3 SC; +INSUINJ2 SC; -IPRIH INH; -OLAN20TA PO; +SERT-206 PO; -SERT50TA19 PO
[2022-12-30 05:24] LABS: Hematocrit 49.4 % (41.0-53.0); Hemoglobin 15.3 g/dL (13.5-17.5); Mean Corpuscular Hemoglobin 30.5 pg (28.0-32.0); Mean Corpuscular Volume 98.3 fL (80.0-100.0); Red Blood Cells 5.02 10^6/uL (4.5-5.90); Red Cell Distribution Width 14.8 % (11.8-14.3); White Blood Cell 25.5 10^3/uL (4.4-10.8)
[2022-12-30 05:37] LABS: Basophils % (manual) 0 (0.0-2.0); Blast Cells 0; Eosinophils % (manual) 0 (0-7); Metamyelocytes % 0; Myelocytes % 0; Promyelocytes % 0; Reactive Lymphocytes 0
[2022-12-30 05:39] LABS: Alanine Aminotransferase 45 U/L (7-40); Albumin 4.6 g/dL (3.2-4.8); Alkaline Phosphatase 147 U/L (46-116); Anion Gap 25.00001 (5-15); Aspartate Aminotransferase 38 U/L (13-40); BUN/Creatinine Ratio 7.3 (10.0-20.0); Bilirubin, Total 0.6 mg/dL (0.2-1.0); Blood Urea Nitrogen 14 mg/dL (9-23); Calcium 9.3 mg/dL (8.7-10.4); Chloride 96 mmol/L (98-107); Potassium 5.1 mmol/L (3.5-5.1); Sodium 131 mmol/L (136-145); Total Protein 8.1 g/dL (5.7-8.2)
[2022-12-30 06:18] LABS: Carbon Dioxide < 10 mmol/L (20-30); Glucose 671 mg/dL (74-106)
[2022-12-30] MEDS ORDERED: DEXTROSE (50%) 50ML SYRG IV PRN ×2 (06:30→10:00)
[2022-12-30] MEDS ORDERED: InsuLIN REG 1unit/0.01ml Soln (100units/ml) IV ONE (06:30)
[2022-12-30] MEDS ORDERED: INSULIN LANTUS (GLARGINE) 1 /0.01ml (100units/ml) SC ONE (06:30)
[2022-12-30] MEDS ORDERED: SODIUM CHLORIDE 0.9% 2,250 ML IV ONE (06:30)
[2022-12-30] MEDS ORDERED: INSULIN DRIP 100 UNIT/100ML 100 ML IV SCH (06:30)
[2022-12-30] MEDS ORDERED: ONDANSETRON HCL 4 MG/2 ML VIAL IV ONE (06:45)
[2022-12-30] MEDS ORDERED: PIPERACILLIN-TAZO 4.5GM 100 ML IV ONE (06:45)
[2022-12-30] MEDS ORDERED: levETIRAcetam 1000 mg/100ml 100 ML IV ONE (06:45)
[2022-12-30] MEDS ORDERED: VANCOMYCIN 1GM/250ML 250 ML IV ONE (06:45)
[2022-12-30 07:00] LABS: Base Excess -15.9 mmol/L (-2.0-2.0)
[2022-12-30 07:12] LABS: Band Neutrophils % (manual) 2; Lymphocytes % (manual) 5 (10.0-50.0); Monocytes % (manual) 9 (0-12)
[2022-12-30 07:13] LABS: Platelet Estimate Adequate
[2022-12-30 07:15] LABS: Lactic Acid w/Reflex 3.7 mmol/L (0.4-2.0)
[2022-12-30 07:18] LABS: INR 1.04 (0.9-1.15); Prothrombin Time 10.9 sec (9.3-11.8)
[2022-12-30 07:30] VITALS: PULSE 118; RESP 22; O2SAT 94
[2022-12-30 08:21] LABS: Urine Bacteria NONE SEEN /hpf (None Seen); Urine Blood Negative /uL (Negative); Urine Clarity Clear (Clear); Urine Protein, UAD Negative (Negative); Urine Specific Gravity 1.023 (1.001-1.035); Urine Urobilinogen Normal (Negative); Urine WBC 8 /hpf (0 - 3)
[2022-12-30 08:23] LABS: Urine Color Straw (Yellow)
[2022-12-30] MEDS: ACCU-CHEK COMFORT CURVE STRIP VI SCH ×12 (08:27→23:58)
[2022-12-30] MEDS: INSULIN DRIP 100 UNIT/100ML 100 ML IV SCH ×7 (09:14→19:46)
[2022-12-30] MEDS ORDERED: MORPHINE SULFATE INJ 2 MG/ml SYRG IV PRN (10:00)
[2022-12-30] MEDS ORDERED: DOCUSATE SOD 100 MG CAP PO PRN (10:00)
[2022-12-30] MEDS ORDERED: ONDANSETRON HCL 4 MG/2 ML VIAL IV PRN (10:00)
[2022-12-30] MEDS ORDERED: LORazepam 2MG/ML-1ML VIAL IV PRN (10:00)
[2022-12-30] MEDS ORDERED: SODIUM CHLORIDE 0.9% 1,000 ML IV SCH ×2 (10:30→14:00)
[2022-12-30] MEDS: levETIRAcetam 1000 mg/100ml 100 ML IV SCH ×2 (10:47→22:35)
[2022-12-30] MEDS: SODIUM CHLORIDE 0.9% 1,000 ML IV SCH ×7 (10:53→23:58)
[2022-12-30 11:05] LABS: Base Excess -12.5 mmol/L (-2.0-2.0)
[2022-12-30 11:19] LABS: Creatinine, Urine 36.75 mg/dL (30.0-125.0)
[2022-12-30] MEDS: PIPERACILLIN-TAZOB 3.375GM 100 ML IV SCH ×3 (12:04→23:55)
[2022-12-30 17:02] LABS: Anion Gap 11 (5-15); Carbon Dioxide 19 mmol/L (20-30); Chloride 107 mmol/L (98-107); Potassium 4.3 mmol/L (3.5-5.1); Sodium 137 mmol/L (136-145)
[2022-12-30 17:03] LABS: Calcium 9.2 mg/dL (8.5-10.1)
[2022-12-30 17:08] LABS: Blood Alcohol 3.5 mg/dL (<10); Glucose 176 mg/dL (74-106)
[2022-12-30 18:54] LABS: Basophils # (auto) 0 10 ^3/uL (0-0.2); Eosinophils # (auto) 0 10 ^3/uL (0-0.8); Hemoglobin 15.1 g/dL (13.5-17.5); Lymphocytes # (auto) 1.2 10 ^3/uL (0.4-5.4)
[2022-12-30 18:55] LABS: Nucleated Red Blood Cells % 0.1 %
[2022-12-30 19:01] LABS: BUN/Creatinine Ratio 10.5 (10.0-20.0); Blood Urea Nitrogen 14 mg/dL (9-23)
[2022-12-30 19:02] LABS: Basophils % (auto) 0.2 % (0.0-2.0); Hematocrit 44.7 % (41.0-53.0); Lymphocytes % (auto) 5.3 % (10.0-50.0); Mean Corpuscular Hemoglobin 31.4 pg (28.0-32.0); Mean Corpuscular Hgb Conc. 33.8 g/dL (32.0-36.0); Mean Corpuscular Volume 92.8 fL (80.0-100.0); Monocytes # (auto) 1.5 10 ^3/uL (0-1.3); Monocytes % (auto) 6.7 % (0.0-12.0); Neutrophils # (auto) 19.5 10 ^3/uL (1.6-8.6); Neutrophils % (auto) 87.8 % (37.0-80.0); Red Blood Cells 4.82 10^6/uL (4.5-5.90); Red Cell Distribution Width 14.3 % (11.8-14.3); White Blood Cell 22.2 10^3/uL (4.4-10.8)
[2022-12-30 20:00] VITALS: PULSE 88; RESP 23; O2SAT 95
[2022-12-30 21:09] LABS: Base Excess -6.6 mmol/L (-2.0-2.0)
[2022-12-30 21:20] LABS: Chloride 108 mmol/L (98-107); Sodium 138 mmol/L (136-145)
[2022-12-30 21:21] LABS: Anion Gap 11 (5-15); Calcium 8.2 mg/dL (8.7-10.4); Carbon Dioxide 19 mmol/L (20-30)
[2022-12-30 21:26] LABS: BUN/Creatinine Ratio 14.8 (10.0-20.0); Blood Urea Nitrogen 18 mg/dL (9-23); Glucose 136 mg/dL (74-106)
[2022-12-30] MEDS: PATIENTS OWN MEDICATION (Divalproex Sodium 250 MG) PO SCH (22:00)
[2022-12-30] MEDS ORDERED: levETIRAcetam 500 MG/5ML INJ IV ONE (22:04)
[2022-12-31] VITALS (7 sets, daily range): BP systolic 117–135; BP diastolic 70–81; PULSE 69–98; RESP 16–19; TEMP 97.6–98.2; O2SAT 92–98
[2022-12-31 00:39] LABS: Chloride 107 mmol/L (98-107); Potassium 3.9 mmol/L (3.5-5.1); Sodium 137 mmol/L (136-145)
[2022-12-31 00:40] LABS: Anion Gap 13 (5-15); Calcium 7.9 mg/dL (8.7-10.4); Carbon Dioxide 17 mmol/L (20-30)
[2022-12-31 00:45] LABS: BUN/Creatinine Ratio 14.8 (10.0-20.0); Blood Urea Nitrogen 17 mg/dL (9-23)
[2022-12-31 00:51] LABS: Glucose 238 mg/dL (74-106)
[2022-12-31] MEDS: ACCU-CHEK COMFORT CURVE STRIP VI SCH ×9 (01:30→22:00)
[2022-12-31] MEDS ORDERED: DEXTROSE (50%) 50ML SYRG IV PRN (04:00)
[2022-12-31] MEDS: InsuLIN REG 1unit/0.01ml Soln (100units/ml) SC SCH ×5 (04:25→20:00)
[2022-12-31 05:44] LABS: Basophils # (auto) 0 10 ^3/uL (0-0.2); Basophils % (auto) 0.2 % (0.0-2.0); Eosinophils # (auto) 0 10 ^3/uL (0-0.8); Hemoglobin 13.3 g/dL (13.5-17.5); Lymphocytes # (auto) 1.2 10 ^3/uL (0.4-5.4); Lymphocytes % (auto) 6.7 % (10.0-50.0); Mean Corpuscular Hemoglobin 30.4 pg (28.0-32.0); Mean Corpuscular Hgb Conc. 33.2 g/dL (32.0-36.0); Mean Corpuscular Volume 91.6 fL (80.0-100.0); Monocytes # (auto) 1.1 10 ^3/uL (0-1.3); Monocytes % (auto) 6.1 % (0.0-12.0); Neutrophils # (auto) 15.7 10 ^3/uL (1.6-8.6); Red Blood Cells 4.36 10^6/uL (4.5-5.90); Red Cell Distribution Width 13.7 % (11.8-14.3)
[2022-12-31 05:50] LABS: Alanine Aminotransferase 29 U/L (7-40); Albumin 3.5 g/dL (3.2-4.8); Alkaline Phosphatase 92 U/L (46-116); Anion Gap 13 (5-15); Aspartate Aminotransferase 42 U/L (13-40); Blood Urea Nitrogen 15 mg/dL (9-23); Calcium 8.5 mg/dL (8.7-10.4); Carbon Dioxide 18 mmol/L (20-30); Chloride 106 mmol/L (98-107); Glucose 157 mg/dL (74-106); Lipase 257 U/L (12-53); Potassium 3.6 mmol/L (3.5-5.1); Sodium 137 mmol/L (136-145)
[2022-12-31 05:51] LABS: Bilirubin, Total 0.5 mg/dL (0.2-1.0)
[2022-12-31] MEDS: PIPERACILLIN-TAZOB 3.375GM 100 ML IV SCH (06:07)
[2022-12-31] MEDS: SERTRALINE HCL 50 MG TAB PO SCH (06:40)
[2022-12-31] MEDS: BENZTROPINE MESY 0.5 MG TAB PO SCH (06:40)
[2022-12-31] MEDS: CARIPRAZINE HCL 6 MG PO SCH (06:45)
[2022-12-31] MEDS: levETIRAcetam 1000 mg/100ml 100 ML IV SCH (10:00)
[2022-12-31] MEDS ORDERED: INSULIN LANTUS (GLARGINE) 1 /0.01ml (100units/ml) SC SCH (10:00)
[2022-12-31] MEDS ORDERED: SODIUM CHLORIDE 0.9% 1,000 ML IV SCH (13:30)
[2022-12-31 13:37] LABS: Chloride 103 mmol/L (98-107); Potassium 3.8 mmol/L (3.5-5.1); Sodium 134 mmol/L (136-145)
[2022-12-31 13:38] LABS: Anion Gap 12 (5-15); Calcium 8.8 mg/dL (8.5-10.1); Carbon Dioxide 19 mmol/L (20-30)
[2022-12-31 13:43] LABS: BUN/Creatinine Ratio 15.5 (10.0-20.0); Blood Urea Nitrogen 15 mg/dL (9-23); Glucose 231 mg/dL (74-106)
[2022-12-31] MEDS: INSULIN LISPRO (HUMAN) 100 UNITS/ML ML SC SCH ×2 (16:51→21:25)
[2022-12-31 18:51] LABS: Chloride 105 mmol/L (98-107); Potassium 3.3 mmol/L (3.5-5.1); Sodium 137 mmol/L (136-145)
[2022-12-31 18:52] LABS: Anion Gap 11 (5-15); Carbon Dioxide 21 mmol/L (20-30)
[2022-12-31 18:58] LABS: BUN/Creatinine Ratio 9.7 (10.0-20.0); Blood Urea Nitrogen 9 mg/dL (9-23); Glucose 162 mg/dL (74-106)
[2022-12-31] MEDS: POTASSIUM CHLORIDE 40 MEQ in SOD CHL 0.45% 1,000 ML IV SCH (19:15)
[2022-12-31] MEDS: levETIRAcetam 500 MG TAB PO SCH (21:27)
[2022-12-31] MEDS: PATIENTS OWN MEDICATION (Divalproex Sodium 250 MG) PO SCH (22:00)
[2023-01-01] MEDS: InsuLIN REG 1unit/0.01ml Soln (100units/ml) SC SCH ×6 (04:00→21:26)
[2023-01-01] MEDS: ACCU-CHEK COMFORT CURVE STRIP VI SCH ×6 (04:00→21:27)
[2023-01-01 05:00] VITALS: BP 129/76; PULSE 84; RESP 18; TEMP 98.1; O2SAT 92
[2023-01-01 05:18] LABS: Basophils # (auto) 0 10 ^3/uL (0-0.2); Basophils % (auto) 0.4 % (0.0-2.0); Eosinophils # (auto) 0 10 ^3/uL (0-0.8); Eosinophils % (auto) 0.1 % (0.0-7.0); Hematocrit 40.6 % (41.0-53.0); Hemoglobin 13.8 g/dL (13.5-17.5); Lymphocytes # (auto) 1.5 10 ^3/uL (0.4-5.4); Lymphocytes % (auto) 15.6 % (10.0-50.0); Mean Corpuscular Hemoglobin 30.8 pg (28.0-32.0); Mean Corpuscular Volume 90.6 fL (80.0-100.0); Monocytes # (auto) 0.7 10 ^3/uL (0-1.3); Monocytes % (auto) 7.4 % (0.0-12.0); Neutrophils # (auto) 7.2 10 ^3/uL (1.6-8.6); Neutrophils % (auto) 76.5 % (37.0-80.0); Nucleated Red Blood Cells % 0.1 %; Red Blood Cells 4.48 10^6/uL (4.5-5.90); Red Cell Distribution Width 14.1 % (11.8-14.3); White Blood Cell 9.4 10^3/uL (4.4-10.8)
[2023-01-01] MEDS: POTASSIUM CHLORIDE 40 MEQ in SOD CHL 0.45% 1,000 ML IV SCH ×2 (05:27→15:35)
[2023-01-01 05:28] LABS: Chloride 106 mmol/L (98-107); Potassium 3.5 mmol/L (3.5-5.1); Sodium 137 mmol/L (136-145)
[2023-01-01 05:29] LABS: Anion Gap 10 (5-15); Calcium 8.9 mg/dL (8.7-10.4); Carbon Dioxide 21 mmol/L (20-30)
[2023-01-01 05:34] LABS: Blood Urea Nitrogen 9 mg/dL (9-23); Glucose 193 mg/dL (74-106); Lipase 160 U/L (12-53)
[2023-01-01 05:35] LABS: Magnesium 1.6 mg/dL (1.6-2.6)
[2023-01-01 05:54] LABS: CRP High Sensitivity 0.77 mg/dL (<1.0)
[2023-01-01 06:23] LABS: Erythrocyte Sedimentation Rate 7 mm/hr (0-20)
[2023-01-01] MEDS: INSULIN LISPRO (HUMAN) 100 UNITS/ML ML SC SCH ×4 (06:25→21:26)
[2023-01-01] MEDS: SERTRALINE HCL 50 MG TAB PO SCH (06:28)
[2023-01-01] MEDS: BENZTROPINE MESY 0.5 MG TAB PO SCH (06:28)
[2023-01-01] MEDS: CARIPRAZINE HCL 6 MG PO SCH (06:56)
[2023-01-01 08:00] VITALS: PULSE 69
[2023-01-01 09:00] VITALS: BP 142/90; PULSE 72; RESP 72; TEMP 97.7; O2SAT 94
[2023-01-01] MEDS: PANTOPRAZOLE 40 MG/10 ML VIAL INJ IV SCH (10:35)
[2023-01-01] MEDS: levETIRAcetam 500 MG TAB PO SCH ×2 (10:36→21:25)
[2023-01-01] MEDS: INSULIN LANTUS (GLARGINE) 1 /0.01ml (100units/ml) SC SCH (10:46)
[2023-01-01 13:00] VITALS: BP 134/88; PULSE 70; RESP 18; TEMP 98; O2SAT 95
[2023-01-01 17:00] VITALS: BP 145/95; PULSE 95; RESP 18; TEMP 98.8; O2SAT 95
[2023-01-01 20:00] VITALS: PULSE 88; RESP 18; O2SAT 96
[2023-01-01] MEDS: PATIENTS OWN MEDICATION (Divalproex Sodium 250 MG) PO SCH (21:26)
[2023-01-02] MEDS: POTASSIUM CHLORIDE 40 MEQ in SOD CHL 0.45% 1,000 ML IV SCH ×2 (02:20→12:03)
[2023-01-02 05:00] VITALS: BP_SYST 123; BP_SYST 92; BP_DIAS 52; BP_DIAS 88; PULSE 73; RESP 17; TEMP 98.2; O2SAT 95; O2SAT 96
[2023-01-02 05:49] LABS: Basophils # (auto) 0 10 ^3/uL (0-0.2); Basophils % (auto) 0.4 % (0.0-2.0); Eosinophils # (auto) 0 10 ^3/uL (0-0.8); Eosinophils % (auto) 0.4 % (0.0-7.0); Hematocrit 43.2 % (41.0-53.0); Hemoglobin 14.5 g/dL (13.5-17.5); Lymphocytes # (auto) 1.3 10 ^3/uL (0.4-5.4); Lymphocytes % (auto) 18.4 % (10.0-50.0); Mean Corpuscular Hemoglobin 30.7 pg (28.0-32.0); Mean Corpuscular Hgb Conc. 33.5 g/dL (32.0-36.0); Mean Corpuscular Volume 91.6 fL (80.0-100.0); Monocytes # (auto) 0.7 10 ^3/uL (0-1.3); Monocytes % (auto) 9.2 % (0.0-12.0); Neutrophils # (auto) 5.2 10 ^3/uL (1.6-8.6); Neutrophils % (auto) 71.6 % (37.0-80.0); Nucleated Red Blood Cells % 0.1 %; Red Blood Cells 4.71 10^6/uL (4.5-5.90); Red Cell Distribution Width 13.6 % (11.8-14.3); White Blood Cell 7.3 10^3/uL (4.4-10.8)
[2023-01-02 06:10] LABS: Anion Gap 10 (5-15); Carbon Dioxide 20 mmol/L (20-30); Chloride 105 mmol/L (98-107); Potassium 4.2 mmol/L (3.5-5.1); Sodium 135 mmol/L (136-145)
[2023-01-02 06:16] LABS: BUN/Creatinine Ratio 10.1 (10.0-20.0); Blood Urea Nitrogen 8 mg/dL (9-23); Glucose 253 mg/dL (74-106); Lipase 364 U/L (12-53); Magnesium 1.6 mg/dL (1.6-2.6)
[2023-01-02] MEDS: CARIPRAZINE HCL 6 MG PO SCH (06:18)
[2023-01-02] MEDS: ACCU-CHEK COMFORT CURVE STRIP VI SCH ×2 (06:18→11:45)
[2023-01-02] MEDS: InsuLIN REG 1unit/0.01ml Soln (100units/ml) SC SCH ×2 (06:22→11:57)
[2023-01-02] MEDS: INSULIN LISPRO (HUMAN) 100 UNITS/ML ML SC SCH ×2 (06:30→11:58)
[2023-01-02] MEDS: BENZTROPINE MESY 0.5 MG TAB PO SCH (06:32)
[2023-01-02] MEDS: SERTRALINE HCL 50 MG TAB PO SCH (06:33)
[2023-01-02 08:00] VITALS: PULSE 113; PULSE 64; RESP 18; O2SAT 97
[2023-01-02 08:40] VITALS: BP 121/76; PULSE 64; RESP 18; TEMP 98; O2SAT 97
[2023-01-02] MEDS: PANTOPRAZOLE 40 MG/10 ML VIAL INJ IV SCH (10:44)
[2023-01-02] MEDS: levETIRAcetam 500 MG TAB PO SCH (10:45)
[2023-01-02] MEDS: INSULIN LANTUS (GLARGINE) 1 /0.01ml (100units/ml) SC SCH (10:58)
[2023-01-02 12:49] VITALS: BP 125/95; PULSE 67; RESP 19; TEMP 98.4; O2SAT 97
== END 2023-01-02 14:31 | disposition home or self-care (01) | DRG 53 ==
LOC: ER 04:25 → TELE 10:04 → TELE-WESTW 12-31 11:00
PROVIDERS: ADMIT Internal Medicine Pulmonary Disease; ATTEND Student in an Organized Health Care Education/Training Program
PROC: 05HC33Z Insertion of Infusion Device into Left Basilic Vein, Percutaneous Approach (ICD-10-PCS; principal; 2022-12-30)
PROC: B54NZZA Ultrasonography of Left Upper Extremity Veins, Guidance (ICD-10-PCS; 2022-12-30)
DX: G40.909 Epilepsy, unspecified, not intractable, without status epilepticus (principal); N17.0 Acute kidney failure with tubular necrosis; K85.90 Acute pancreatitis without necrosis or infection, unspecified; E10.10 Type 1 diabetes mellitus with ketoacidosis without coma; E86.0 Dehydration; J45.909 Unspecified asthma, uncomplicated; F10.139 Alcohol abuse with withdrawal, unspecified; F20.9 Schizophrenia, unspecified; F32.A Depression, unspecified; I10 Essential (primary) hypertension; E87.6 Hypokalemia; E87.70 Fluid overload, unspecified; H54.7 Unspecified visual loss; Z79.4 Long term (current) use of insulin; Z88.8 Allergy status to other drugs, medicaments and biological substances; Z91.018 Allergy to other foods; Z86.73 Personal history of transient ischemic attack (TIA), and cerebral infarction without residual deficits; Z91.148 Patient's other noncompliance with medication regimen for other reason; Z98.2 Presence of cerebrospinal fluid drainage device; D72.829 Elevated white blood cell count, unspecified
CPT/HCPCS: 36415; 36600; 70450; 71045; 74176; 80048; 80053; 80164; 80320; 81001; 82010; 82570; 82805; 82962; 83605; 83690; 83735; 83930; 84100; 84300; 84443; 84484; 85007; 85025; 85027; 85610; 85652; 86141; 87040; 87081; 87086; 93005; 99291; C9113; G0378; J1815; J2405; J2543

== ENCOUNTER 2023-09-25 17:01 | Inpatient (IN) | payer MEDICAID ==
[~2023-09-25] VITALS: Ht 170.2 cm; Wt 79.8 kg
[2023-09-25 17:48] VITALS: PULSE 77; RESP 14; O2SAT 96
[2023-09-25 17:49] LABS: Basophils # (auto) 0 10 ^3/uL (0-0.2); Basophils % (auto) 0.6 % (0.0-2.0); Eosinophils # (auto) 0.2 10 ^3/uL (0-0.8); Hematocrit 43.2 % (41.0-53.0); Hemoglobin 14.5 g/dL (13.5-17.5); Lymphocytes # (auto) 0.9 10 ^3/uL (0.4-5.4); Lymphocytes % (auto) 14.5 % (10.0-50.0); Mean Corpuscular Hemoglobin 30.1 pg (28.0-32.0); Mean Corpuscular Hgb Conc. 33.6 g/dL (32.0-36.0); Mean Corpuscular Volume 89.7 fL (80.0-100.0); Monocytes # (auto) 0.4 10 ^3/uL (0-1.3); Monocytes % (auto) 6.7 % (0.0-12.0); Neutrophils # (auto) 4.6 10 ^3/uL (1.6-8.6); Neutrophils % (auto) 75.2 % (37.0-80.0); Nucleated Red Blood Cells % 0.2 %; Red Blood Cells 4.82 10^6/uL (4.5-5.90); Red Cell Distribution Width 13.9 % (11.8-14.3); White Blood Cell 6.1 10^3/uL (4.4-10.8)
[2023-09-25 18:05] LABS: Alanine Aminotransferase 15 U/L (7-40); Alkaline Phosphatase 90 U/L (46-116); Anion Gap 6 (5-15); Aspartate Aminotransferase 15 U/L (13-40); BUN/Creatinine Ratio 9.5 (10.0-20.0); Bilirubin, Total 0.2 mg/dL (0.2-1.0); Blood Urea Nitrogen 9 mg/dL (9-23); Calcium 9.2 mg/dL (8.7-10.4); Carbon Dioxide 25 mmol/L (20-30); Chloride 108 mmol/L (98-107); Glucose 100 mg/dL (74-106); Lipase 22 U/L (12-53); Sodium 139 mmol/L (136-145)
[2023-09-25] MEDS: SODIUM CHLORIDE 0.9% 1,000 ML IV ONE (18:58)
[2023-09-25] MEDS: cloNIDine HCL 0.1 MG TAB PO ONE (19:37)
[2023-09-25 19:55] VITALS: PULSE 84; RESP 18; O2SAT 95
[2023-09-25] MEDS: levETIRAcetam 1000 mg/100ml 100 ML IV ONE (20:51)
[2023-09-25] MEDS: PANTOPRAZOLE 40 MG/10 ML VIAL INJ IV ONE (20:51)
[2023-09-25 22:07] LABS: Urine Bacteria None Seen /hpf (None Seen)
[2023-09-25 22:13] LABS: Urine Blood Negative /uL (Negative); Urine Clarity Clear (Clear); Urine Color Colorless (Yellow); Urine Protein, UAD Negative (Negative); Urine Specific Gravity 1.009 (1.001-1.035); Urine Urobilinogen Normal (Negative); Urine WBC 3 /hpf (0 - 3); Urine pH 7.5 (5.0-9.0)
[2023-09-25 22:28] LABS: Amphetamine Screen, Urine Neg (NEGATIVE); Barbiturate Scree,Urine Neg (NEGATIVE); Benzodiazephine Screen, Urine Neg (NEGATIVE); Cannabinoid Screen, Urine Pos (NEGATIVE); Cocaine Screen, Urine Neg (NEGATIVE); Opiate Scree,Urine Neg (NEGATIVE); Phencyclidine Screen, Urine Neg (NEGATIVE)
[2023-09-25] MEDS: QUEtiapine FUMARATE 100 MG TAB PO ONE (22:29)
[2023-09-25 23:43] VITALS: BP 141/103; PULSE 77; RESP 14; TEMP 98.5; O2SAT 96
[2023-09-25] MEDS ORDERED: DOCUSATE SOD 100 MG CAP PO PRN (23:45)
[2023-09-25] MEDS ORDERED: DEXTROSE (50%) 50ML SYRG IV PRN (23:45)
[2023-09-25] MEDS ORDERED: HYDROcodone-ACET 5/325MG TAB PO PRN (23:45)
[2023-09-25] MEDS ORDERED: NITROGLYCERIN 0.4 MG SL TAB SL PRN (23:45)
[2023-09-25] MEDS ORDERED: ALBUTEROL SULF 2.5 MG/0.5ML(0.5%) NEB SOLN NEB PRN (23:45)
[2023-09-25] MEDS ORDERED: ACETAMINOPHEN 325 MG TAB PO PRN (23:45)
[2023-09-25] MEDS ORDERED: hydrALAZINE HCL 20 MG/ML VL IV PRN (23:45)
[2023-09-25] MEDS ORDERED: ONDANSETRON HCL 4 MG/2 ML VIAL IV PRN (23:45)
[2023-09-25] MEDS ORDERED: MORPHINE SULFATE INJ 2 MG/ml SYRG IV PRN (23:45)
[2023-09-26] VITALS (10 sets, daily range): BP systolic 112–131; BP diastolic 85–97; PULSE 72–88; RESP 14–18; TEMP 97.4–98; O2SAT 93–100
[2023-09-26] MEDS: SODIUM CHLORIDE 0.9% 1,000 ML IV SCH (00:12)
[2023-09-26] MEDS ORDERED: SERT-206 PO (00:21)
[2023-09-26] MEDS ORDERED: TAMS1CAP25 PO (00:21)
[2023-09-26] MEDS ORDERED: KEP500T PO (00:21)
[2023-09-26] MEDS ORDERED: DIVA500T13 PO (00:21)
[2023-09-26] MEDS ORDERED: QUET200T45 PO (00:21)
[2023-09-26] MEDS ORDERED: OXCA600T3 PO (00:21)
[2023-09-26] MEDS ORDERED: HYDR-4924 PO (00:21)
[2023-09-26] MEDS: ACCU-CHEK COMFORT CURVE STRIP VI SCH (06:27)
[2023-09-26] MEDS: InsuLIN REG 1unit/0.01ml Soln (100units/ml) SC SCH (06:29)
[2023-09-26 07:09] LABS: Basophils # (auto) 0.1 10 ^3/uL (0-0.2); Eosinophils # (auto) 0.4 10 ^3/uL (0-0.8); Eosinophils % (auto) 7.4 % (0.0-7.0); Hematocrit 41.4 % (41.0-53.0); Hemoglobin 14.1 g/dL (13.5-17.5); Lymphocytes # (auto) 1.7 10 ^3/uL (0.4-5.4); Mean Corpuscular Hemoglobin 30.7 pg (28.0-32.0); Mean Corpuscular Hgb Conc. 34.2 g/dL (32.0-36.0); Mean Corpuscular Volume 89.9 fL (80.0-100.0); Monocytes # (auto) 0.4 10 ^3/uL (0-1.3); Monocytes % (auto) 7.5 % (0.0-12.0); Neutrophils # (auto) 3.4 10 ^3/uL (1.6-8.6); Neutrophils % (auto) 56.1 % (37.0-80.0); Red Blood Cells 4.61 10^6/uL (4.5-5.90); Red Cell Distribution Width 13.9 % (11.8-14.3)
[2023-09-26 07:38] LABS: Alanine Aminotransferase 17 U/L (7-40); Albumin 3.7 g/dL (3.2-4.8); Alkaline Phosphatase 87 U/L (46-116); Anion Gap 5 (5-15); Aspartate Aminotransferase 25 U/L (13-40); BUN/Creatinine Ratio 7.4 (10.0-20.0); Bilirubin, Total 0.4 mg/dL (0.2-1.0); Blood Urea Nitrogen 7 mg/dL (9-23); Calcium 9.4 mg/dL (8.7-10.4); Carbon Dioxide 26 mmol/L (20-30); Chloride 108 mmol/L (98-107); Glucose 199 mg/dL (74-106); Potassium 4.3 mmol/L (3.5-5.1); Sodium 139 mmol/L (136-145); Total Protein 6.2 g/dL (5.7-8.2)
[2023-09-26] MEDS: levETIRAcetam 1000 mg/100ml 100 ML IV SCH (09:43)
[2023-09-26] MEDS: PANTOPRAZOLE 40 MG/10 ML VIAL INJ IV SCH (09:43)
[2023-09-26] MEDS ORDERED: TAMSULOSIN HYDROCHLORIDE 0.4 MG CAP PO SCH (14:00)
[2023-09-26] MEDS: ATORVASTATIN 20 MG TAB PO ONE (14:38)
[2023-09-26] MEDS: SERTRALINE HCL 50 MG TAB PO SCH (17:38)
[2023-09-26] MEDS: TAMSULOSIN HYDROCHLORIDE 0.4 MG CAP PO SCH (17:38)
[2023-09-26] MEDS: levETIRAcetam 500 MG TAB PO SCH (21:10)
[2023-09-26] MEDS ORDERED: INSULIN LANTUS (GLARGINE) 1 /0.01ml (100units/ml) SC SCH (22:00)
[2023-09-27] VITALS (10 sets, daily range): BP systolic 111–134; BP diastolic 28–90; PULSE 79–119; RESP 17–19; TEMP 97.4–97.9; O2SAT 92–97
[2023-09-27 06:05] LABS: Basophils # (auto) 0 10 ^3/uL (0-0.2); Basophils % (auto) 0.8 % (0.0-2.0); Eosinophils # (auto) 0.5 10 ^3/uL (0-0.8); Eosinophils % (auto) 8.6 % (0.0-7.0); Hemoglobin 15.4 g/dL (13.5-17.5); Lymphocytes # (auto) 1.7 10 ^3/uL (0.4-5.4); Lymphocytes % (auto) 30.2 % (10.0-50.0); Mean Corpuscular Hemoglobin 30.5 pg (28.0-32.0); Mean Corpuscular Hgb Conc. 33.6 g/dL (32.0-36.0); Mean Corpuscular Volume 90.9 fL (80.0-100.0); Monocytes # (auto) 0.5 10 ^3/uL (0-1.3); Monocytes % (auto) 8.4 % (0.0-12.0); Neutrophils # (auto) 2.9 10 ^3/uL (1.6-8.6); Nucleated Red Blood Cells % 0.1 %; Red Blood Cells 5.06 10^6/uL (4.5-5.90); Red Cell Distribution Width 13.9 % (11.8-14.3); White Blood Cell 5.6 10^3/uL (4.4-10.8)
[2023-09-27 06:23] LABS: Alanine Aminotransferase 23 U/L (7-40); Albumin 3.9 g/dL (3.2-4.8); Alkaline Phosphatase 95 U/L (46-116); Anion Gap 5 (5-15); Aspartate Aminotransferase 42 U/L (13-40); BUN/Creatinine Ratio 8.1 (10.0-20.0); Blood Urea Nitrogen 9 mg/dL (9-23); Calcium 9.5 mg/dL (8.7-10.4); Carbon Dioxide 26 mmol/L (20-30); Chloride 103 mmol/L (98-107); Potassium 5.3 mmol/L (3.5-5.1)
[2023-09-27 06:24] LABS: Bilirubin, Total 0.8 mg/dL (0.2-1.0); Total Protein 6.5 g/dL (5.7-8.2)
[2023-09-27 06:39] LABS: Glucose 323 mg/dL (74-106); Sodium 134 mmol/L (136-145)
[2023-09-27 09:44] LABS: Hepatitis B Surface Antigen Negative (Negative)
[2023-09-27 10:05] LABS: Hepatitis C Antibody Negative (Negative)
[2023-09-27] MEDS: ERGOCALCIFEROL 50,000 UNIT(1.25MG) CAP PO SCH (17:17)
[2023-09-27] MEDS: ATORVASTATIN 20 MG TAB PO SCH (21:16)
[2023-09-28 05:00] VITALS: BP 122/80; PULSE 95; RESP 17; TEMP 97.5; O2SAT 95
[2023-09-28] MEDS ORDERED: DEXTROSE (50%) 50ML SYRG IV PRN ×2 (07:15→09:45)
[2023-09-28 08:00] VITALS: PULSE 109
[2023-09-28] MEDS ORDERED: ACCU-CHEK COMFORT CURVE STRIP VI SCH (08:00)
[2023-09-28] MEDS ORDERED: InsuLIN REG 1unit/0.01ml Soln (100units/ml) SC SCH (08:00)
[2023-09-28] MEDS: ENOXAPARIN SOD 40 MG/0.4 ML SYRINGE SC SCH (09:21)
[2023-09-28 09:39] VITALS: BP 124/88; PULSE 91; RESP 17; TEMP 98; O2SAT 95
[2023-09-28 10:39] LABS: Basophils # (auto) 0 10 ^3/uL (0-0.2); Basophils % (auto) 0.3 % (0.0-2.0); Eosinophils # (auto) 0.2 10 ^3/uL (0-0.8); Eosinophils % (auto) 1.4 % (0.0-7.0); Hematocrit 47.7 % (41.0-53.0); Hemoglobin 16.3 g/dL (13.5-17.5); Lymphocytes # (auto) 1.3 10 ^3/uL (0.4-5.4); Lymphocytes % (auto) 10.5 % (10.0-50.0); Mean Corpuscular Hemoglobin 30.7 pg (28.0-32.0); Mean Corpuscular Hgb Conc. 34.1 g/dL (32.0-36.0); Mean Corpuscular Volume 89.8 fL (80.0-100.0); Monocytes # (auto) 0.7 10 ^3/uL (0-1.3); Monocytes % (auto) 5.5 % (0.0-12.0); Neutrophils # (auto) 9.9 10 ^3/uL (1.6-8.6); Neutrophils % (auto) 82.3 % (37.0-80.0); Red Blood Cells 5.31 10^6/uL (4.5-5.90); Red Cell Distribution Width 13.1 % (11.8-14.3); White Blood Cell 12.1 10^3/uL (4.4-10.8)
[2023-09-28 10:59] LABS: Alanine Aminotransferase 34 U/L (7-40); Albumin 4.2 g/dL (3.2-4.8); Alkaline Phosphatase 111 U/L (46-116); Anion Gap 13 (5-15); Aspartate Aminotransferase 34 U/L (13-40); BUN/Creatinine Ratio 14.9 (10.0-20.0); Bilirubin, Total 0.6 mg/dL (0.2-1.0); Blood Urea Nitrogen 17 mg/dL (9-23); Calcium 9.9 mg/dL (8.7-10.4); Carbon Dioxide 19 mmol/L (20-30); Chloride 101 mmol/L (98-107); Glucose 328 mg/dL (74-106); Potassium 4.3 mmol/L (3.5-5.1); Sodium 133 mmol/L (136-145); Total Protein 7.3 g/dL (5.7-8.2)
[2023-09-28 11:06] VITALS: O2SAT 96
[2023-09-28] MEDS: ACCU-CHEK COMFORT CURVE STRIP VI SCH (12:08)
[2023-09-28] MEDS: InsuLIN REG 1unit/0.01ml Soln (100units/ml) SC SCH (12:09)
[2023-09-28 13:25] VITALS: BP 124/88; PULSE 91; RESP 18; O2SAT 96
[2023-09-28 13:33] VITALS: BP 124/83; PULSE 117; RESP 18; TEMP 98.1; O2SAT 94
== END 2023-09-28 14:30 | disposition left against medical advice (07) | DRG 420 ==
LOC: EDUNIT# 17:01 → EDBD 17:01 → ER 17:08 → TELE 23:40 → TELE-E-ADS 09-26 02:02
PROVIDERS: ADMIT Internal Medicine; ATTEND Emergency Medicine
DX: E10.649 Type 1 diabetes mellitus with hypoglycemia without coma (principal); G93.41 Metabolic encephalopathy; I10 Essential (primary) hypertension; E55.9 Vitamin D deficiency, unspecified; F32.A Depression, unspecified; F41.9 Anxiety disorder, unspecified; Z53.29 Procedure and treatment not carried out because of patient's decision for other reasons; F20.9 Schizophrenia, unspecified; R56.9 Unspecified convulsions; Z91.014 Allergy to mammalian meats; Z91.018 Allergy to other foods; Z79.899 Other long term (current) drug therapy
CPT/HCPCS: 36415; 70450; 70551; 71045; 80053; 80307; 80320; 81001; 82306; 82607; 82962; 83036; 83605; 83690; 83880; 84443; 84484; 85025; 86803; 87340; 95819; 97163; G0378; J1815; J2470

== ENCOUNTER 2023-12-13 16:18 | Emergency (ER) | payer MEDICAID ==
[~2023-12-13] VITALS: Ht 182.9 cm; Wt 100.0 kg
[~2023-12-13 16:18] MED LIST changes: +ALBU108A5 INH; +ARIP20TA4 PO; +DIVA500T13 PO; +HYDR-4924 PO; +KEP500T PO; +OXCA600T3 PO; +QUET1TAB88 PO; +QUET200T45 PO; +TAMS1CAP25 PO
[2023-12-13] MEDS: SODIUM CHLORIDE 0.9% 1,000 ML IVB ONE (17:06)
[2023-12-13 17:40] LABS: Basophils # (auto) 0 10 ^3/uL (0-0.2); Basophils % (auto) 0.6 % (0.0-2.0); Eosinophils # (auto) 0.4 10 ^3/uL (0-0.8); Eosinophils % (auto) 5.3 % (0.0-7.0); Hematocrit 38.9 % (41.0-53.0); Hemoglobin 13.4 g/dL (13.5-17.5); Lymphocytes # (auto) 1.8 10 ^3/uL (0.4-5.4); Lymphocytes % (auto) 23.2 % (10.0-50.0); Mean Corpuscular Hgb Conc. 34.5 g/dL (32.0-36.0); Mean Corpuscular Volume 89.7 fL (80.0-100.0); Monocytes # (auto) 0.5 10 ^3/uL (0-1.3); Monocytes % (auto) 6.2 % (0.0-12.0); Neutrophils % (auto) 64.7 % (37.0-80.0); Platelet Count (auto) 256 10^3/uL (140-450); Red Blood Cells 4.34 10^6/uL (4.5-5.90); Red Cell Distribution Width 13.3 % (11.8-14.3); White Blood Cell 7.7 10^3/uL (4.4-10.8)
[2023-12-13 17:43] LABS: Alanine Aminotransferase 27 U/L (7-40); Albumin 4.1 g/dL (3.2-4.8); Alkaline Phosphatase 133 U/L (46-116); Anion Gap 13 (5-15); Aspartate Aminotransferase 20 U/L (13-40); BUN/Creatinine Ratio 12.5 (10.0-20.0); Blood Urea Nitrogen 20 mg/dL (9-23); Calcium 9.2 mg/dL (8.7-10.4); Carbon Dioxide 22 mmol/L (20-31); Chloride 103 mmol/L (98-107); Glucose 151 mg/dL (74-106); Magnesium 1.4 mg/dL (1.6-2.6); Potassium 3.6 mmol/L (3.5-5.1); Sodium 138 mmol/L (136-145)
[2023-12-13 17:44] LABS: Bilirubin, Total 0.2 mg/dL (0.2-1.0); Total Protein 6.9 g/dL (5.7-8.2)
[2023-12-13] MEDS: MAGNESIUM SULFATE 1GM/100ML 100 ML IV SCH (19:30)
[2023-12-13 19:45] VITALS: PULSE 82; RESP 16; O2SAT 92
[2023-12-13 20:53] LABS: COVID19 ANTIGEN SOFIA FIA NEGATIVE (NEGATIVE)
[2023-12-13] MEDS: InsuLIN REG 1unit/0.01ml Soln (100units/ml) IV ONE (20:56)
[2023-12-13 21:28] LABS: Chloride 104 mmol/L (98-107); Potassium 4.4 mmol/L (3.5-5.1); Sodium 137 mmol/L (136-145)
[2023-12-13 21:29] LABS: Anion Gap 7 (5-15); Calcium 8.7 mg/dL (8.7-10.4); Carbon Dioxide 26 mmol/L (20-31)
[2023-12-13 21:34] LABS: BUN/Creatinine Ratio 14.3 (10.0-20.0); Blood Urea Nitrogen 21 mg/dL (9-23)
[2023-12-13 21:37] LABS: Glucose 312 mg/dL (74-106)
[2023-12-13 21:45] VITALS: BP 101/63; PULSE 78; RESP 15; TEMP 97.6; O2SAT 95
[2023-12-20] MEDS ORDERED: GABA-1250 PO (15:22)
== END 2023-12-13 22:00 | disposition home or self-care (01) ==
LOC: EDBD 16:18 → ER 16:18
DX: G40.909 Epilepsy, unspecified, not intractable, without status epilepticus (principal); F31.32 Bipolar disorder, current episode depressed, moderate; R53.1 Weakness; E83.42 Hypomagnesemia; E11.65 Type 2 diabetes mellitus with hyperglycemia; F12.90 Cannabis use, unspecified, uncomplicated; J45.909 Unspecified asthma, uncomplicated; F20.9 Schizophrenia, unspecified; Z79.4 Long term (current) use of insulin; Z88.8 Allergy status to other drugs, medicaments and biological substances; Z79.899 Other long term (current) drug therapy; Z98.890 Other specified postprocedural states; Z20.822 Contact with and (suspected) exposure to COVID-19
CPT/HCPCS: 36415; 70450; 71046; 80048; 80053; 82962; 83735; 84484; 85025; 85379; 87426; 93005; 96361; 96365; 96375; 99285; J1815; J3475

== ENCOUNTER 2023-12-20 18:32 | Inpatient (IN) | payer MEDICAID ==
[~2023-12-20] VITALS: Ht 182.9 cm; Wt 75.0 kg
[~2023-12-20 18:32] MED LIST changes: +GABA-1250 PO
[2023-12-20 18:55] LABS: Basophils # (auto) 0.1 10 ^3/uL (0-0.2); Basophils % (auto) 0.6 % (0.0-2.0); Eosinophils # (auto) 0 10 ^3/uL (0-0.8); Eosinophils % (auto) 0.5 % (0.0-7.0); Hematocrit 46.5 % (41.0-53.0); Hemoglobin 16.1 g/dL (13.5-17.5); Lymphocytes # (auto) 1.5 10 ^3/uL (0.4-5.4); Lymphocytes % (auto) 14.7 % (10.0-50.0); Mean Corpuscular Hemoglobin 30.8 pg (28.0-32.0); Mean Corpuscular Hgb Conc. 34.5 g/dL (32.0-36.0); Mean Corpuscular Volume 89.2 fL (80.0-100.0); Monocytes # (auto) 0.7 10 ^3/uL (0-1.3); Monocytes % (auto) 6.6 % (0.0-12.0); Neutrophils # (auto) 7.7 10 ^3/uL (1.6-8.6); Neutrophils % (auto) 77.6 % (37.0-80.0); Nucleated Red Blood Cells % 0.1 %; Platelet Count (auto) 340 10^3/uL (140-450); Red Blood Cells 5.22 10^6/uL (4.5-5.90); Red Cell Distribution Width 13.1 % (11.8-14.3); White Blood Cell 9.9 10^3/uL (4.4-10.8)
[2023-12-20 19:12] LABS: Alanine Aminotransferase 40 U/L (7-40); Albumin 4.8 g/dL (3.2-4.8); Alkaline Phosphatase 219 U/L (46-116); Anion Gap 22 (5-15); Aspartate Aminotransferase 25 U/L (13-40); BUN/Creatinine Ratio 10.7 (10.0-20.0); Blood Urea Nitrogen 19 mg/dL (9-23); Calcium 11.2 mg/dL (8.7-10.4); Glucose 385 mg/dL (74-106); Potassium 4.2 mmol/L (3.5-5.1)
[2023-12-20 19:13] LABS: Bilirubin, Total 0.8 mg/dL (0.2-1.0); Total Protein 8.5 g/dL (5.7-8.2)
[2023-12-20 19:14] LABS: Carbon Dioxide 14 mmol/L (20-31); Chloride 94 mmol/L (98-107); Sodium 130 mmol/L (136-145)
[2023-12-20] MEDS: SODIUM CHLORIDE 0.9% 500 ML IV ONE ×3 (22:15→23:30)
[2023-12-20] MEDS ORDERED: DEXTROSE (50%) 50ML SYRG IV PRN (23:00)
[2023-12-20] MEDS ORDERED: NITROGLYCERIN 0.4 MG SL TAB SL PRN (23:00)
[2023-12-20] MEDS: ASPirin 81 mg TAB PO ONE (23:07)
[2023-12-20 23:08] LABS: Base Excess -9.6 mmol/L (-2.0-3.0)
[2023-12-20] MEDS: SODIUM CHLORIDE 0.9% 1,000 ML IV SCH (23:28)
[2023-12-20] MEDS: INSULIN DRIP 100 UNIT/100ML 100 ML IV SCH (23:30)
[2023-12-21] MEDS ORDERED: ACCU-CHEK COMFORT CURVE STRIP VI SCH
[2023-12-21] MEDS: ACCU-CHEK COMFORT CURVE STRIP VI SCH
[2023-12-21] MEDS ORDERED: IPRATROPIUM BROM 0.5 MG/2.5ML INH SOL NEB PRN
[2023-12-21] MEDS ORDERED: ALBUTEROL SULF 2.5 MG/0.5ML(0.5%) NEB SOLN NEB PRN
[2023-12-21] MEDS ORDERED: LORazepam 2MG/ML-1ML VIAL IV PRN ×2
[2023-12-21 00:15] VITALS: PULSE 110; RESP 19; O2SAT 95
[2023-12-21 00:17] LABS: Chloride 91 mmol/L (98-107); Potassium 5.5 mmol/L (3.5-5.1); Sodium 128 mmol/L (136-145)
[2023-12-21 00:18] LABS: Anion Gap 22 (5-15); Calcium 10.5 mg/dL (8.7-10.4); Carbon Dioxide 15 mmol/L (20-31)
[2023-12-21 00:22] VITALS: BP 158/104; PULSE 121; RESP 18; TEMP 97.5; O2SAT 97
[2023-12-21 00:23] LABS: BUN/Creatinine Ratio 11.2 (10.0-20.0); Blood Urea Nitrogen 24 mg/dL (9-23)
[2023-12-21] MEDS: PANTOPRAZOLE 40 MG/10 ML VIAL INJ IV ONE (00:23)
[2023-12-21] MEDS: MAGNESIUM SULFATE 1GM/100ML 200 ML IV ONE (00:23)
[2023-12-21 00:24] LABS: Basophils # (auto) 0 10 ^3/uL (0-0.2); Basophils % (auto) 0.1 % (0.0-2.0); Eosinophils # (auto) 0 10 ^3/uL (0-0.8); Hematocrit 47.2 % (41.0-53.0); Hemoglobin 15.7 g/dL (13.5-17.5); Lymphocytes # (auto) 0.6 10 ^3/uL (0.4-5.4); Lymphocytes % (auto) 3.7 % (10.0-50.0); Magnesium 1.7 mg/dL (1.6-2.6); Mean Corpuscular Hemoglobin 30.3 pg (28.0-32.0); Mean Corpuscular Hgb Conc. 33.2 g/dL (32.0-36.0); Mean Corpuscular Volume 91.1 fL (80.0-100.0); Monocytes # (auto) 0.7 10 ^3/uL (0-1.3); Monocytes % (auto) 4.5 % (0.0-12.0); Neutrophils # (auto) 13.8 10 ^3/uL (1.6-8.6); Neutrophils % (auto) 91.7 % (37.0-80.0); Platelet Count (auto) 328 10^3/uL (140-450); Red Blood Cells 5.18 10^6/uL (4.5-5.90); Red Cell Distribution Width 13.4 % (11.8-14.3); White Blood Cell 15.1 10^3/uL (4.4-10.8)
[2023-12-21 00:25] LABS: Phosphorus 5.6 mg/dL (2.4-5.1)
[2023-12-21 00:40] LABS: Glucose 542 mg/dL (74-106)
[2023-12-21 01:07] LABS: INR 1.08 (0.9-1.15); Partial Thromboplastin Time 25.4 SEC (24.5-34.5); Prothrombin Time 11.4 sec (9.3-11.8)
[2023-12-21 02:33] LABS: COVID19 ANTIGEN SOFIA FIA NEGATIVE (NEGATIVE)
[2023-12-21] MEDS: SODIUM CHLORIDE 0.9% 1,000 ML IV SCH (03:33)
[2023-12-21 04:46] LABS: Chloride 98 mmol/L (98-107); Potassium 3.9 mmol/L (3.5-5.1)
[2023-12-21 04:47] LABS: Anion Gap 20 (5-15); Calcium 10.7 mg/dL (8.7-10.4); Carbon Dioxide 18 mmol/L (20-31)
[2023-12-21 04:52] LABS: BUN/Creatinine Ratio 14.4 (10.0-20.0); Blood Urea Nitrogen 26 mg/dL (9-23)
[2023-12-21 04:56] LABS: Glucose 230 mg/dL (74-106); Sodium 136 mmol/L (136-145)
[2023-12-21] MEDS: D5W/SOD CHL 0.45%/KCL 20MEQ 1,000 ML IV SCH (05:29)
[2023-12-21] MEDS: ONDANSETRON HCL 4 MG/2 ML VIAL IV PRN (05:54)
[2023-12-21] MEDS: MORPHINE SULFATE INJ 2 MG/ml SYRG IV PRN (05:55)
[2023-12-21] MEDS: ONDANSETRON HCL 4 MG/2 ML VIAL IV ONE (05:59)
[2023-12-21 06:14] VITALS: O2SAT 93
[2023-12-21 06:51] LABS: Phosphorus 3.2 mg/dL (2.4-5.1)
[2023-12-21 07:20] VITALS: RESP 19; O2SAT 95
[2023-12-21] MEDS: INSULIN DRIP 100 UNIT/100ML 100 ML IV SCH ×2 (07:45→13:35)
[2023-12-21] MEDS: QUEtiapine FUMARATE 100 MG TAB PO SCH (10:17)
[2023-12-21] MEDS: OXcarbazepine 300 MG TAB PO SCH (10:17)
[2023-12-21] MEDS: PANTOPRAZOLE 40 MG/10 ML VIAL INJ IV SCH (10:17)
[2023-12-21] MEDS: levETIRAcetam 500 MG TAB PO SCH (10:18)
[2023-12-21] MEDS: SERTRALINE HCL 50 MG TAB PO SCH (10:18)
[2023-12-21 10:36] LABS: Basophils # (auto) 0.1 10 ^3/uL (0-0.2); Basophils % (auto) 0.8 % (0.0-2.0); Eosinophils # (auto) 0 10 ^3/uL (0-0.8); Hematocrit 45.1 % (41.0-53.0); Hemoglobin 15.4 g/dL (13.5-17.5); Lymphocytes # (auto) 1.3 10 ^3/uL (0.4-5.4); Lymphocytes % (auto) 10.9 % (10.0-50.0); Mean Corpuscular Hemoglobin 30.2 pg (28.0-32.0); Mean Corpuscular Hgb Conc. 34.2 g/dL (32.0-36.0); Mean Corpuscular Volume 88.4 fL (80.0-100.0); Monocytes # (auto) 0.9 10 ^3/uL (0-1.3); Neutrophils # (auto) 9.8 10 ^3/uL (1.6-8.6); Neutrophils % (auto) 81.3 % (37.0-80.0); Nucleated Red Blood Cells % 0.4 %; Platelet Count (auto) 337 10^3/uL (140-450); Red Cell Distribution Width 13.3 % (11.8-14.3); White Blood Cell 12.1 10^3/uL (4.4-10.8)
[2023-12-21 11:49] LABS: Chloride 101 mmol/L (98-107); Potassium 3.6 mmol/L (3.5-5.1); Sodium 134 mmol/L (136-145)
[2023-12-21 11:51] LABS: Anion Gap 10 (5-15); Calcium 10.1 mg/dL (8.7-10.4); Carbon Dioxide 23 mmol/L (20-31)
[2023-12-21 11:56] LABS: BUN/Creatinine Ratio 16.2 (10.0-20.0); Blood Urea Nitrogen 25 mg/dL (9-23); Glucose 144 mg/dL (74-106)
[2023-12-21 13:16] LABS: Base Excess -1.7 mmol/L (-2.0-3.0)
[2023-12-21 14:00] VITALS: BP 123/86; PULSE 125; RESP 18; TEMP 98; O2SAT 97
[2023-12-21] MEDS: INSULIN LANTUS (GLARGINE) 1 /0.01ml (100units/ml) SC SCH (15:12)
[2023-12-21] MEDS: ERGOCALCIFEROL 50,000 UNIT(1.25MG) CAP PO SCH (15:13)
== END 2023-12-21 15:58 | disposition left against medical advice (07) | DRG 420 ==
LOC: ER 18:32 → OVERFLOW 22:51
PROVIDERS: ADMIT Internal Medicine; ATTEND Emergency Medicine
DX: E10.10 Type 1 diabetes mellitus with ketoacidosis without coma (principal); N17.0 Acute kidney failure with tubular necrosis; G92.8 Other toxic encephalopathy; I24.9 Acute ischemic heart disease, unspecified; R65.10 Systemic inflammatory response syndrome (SIRS) of non-infectious origin without acute organ dysfunction; E86.0 Dehydration; E87.1 Hypo-osmolality and hyponatremia; F20.9 Schizophrenia, unspecified; Z20.822 Contact with and (suspected) exposure to COVID-19; I10 Essential (primary) hypertension; E10.65 Type 1 diabetes mellitus with hyperglycemia; J45.909 Unspecified asthma, uncomplicated; F41.9 Anxiety disorder, unspecified; E87.5 Hyperkalemia; E87.6 Hypokalemia; G40.909 Epilepsy, unspecified, not intractable, without status epilepticus; E83.42 Hypomagnesemia; F31.9 Bipolar disorder, unspecified; Z87.820 Personal history of traumatic brain injury; Z88.8 Allergy status to other drugs, medicaments and biological substances; Z79.899 Other long term (current) drug therapy; Z79.4 Long term (current) use of insulin
CPT/HCPCS: 36415; 36600; 71045; 80048; 80053; 82010; 82140; 82306; 82805; 82962; 83735; 83930; 84100; 84484; 85025; 85610; 85730; 87426; 93005; 99291; G0378; J1815; J2405; J2470

== ENCOUNTER 2024-12-01 12:13 | Inpatient (IN) | payer MEDICAID ==
[2024-12-01] VITALS (19 sets, daily range): BP systolic 88–116; BP diastolic 58–71; PULSE 108–118; RESP 13–32; TEMP 97.3–99.1; O2SAT 35–100
[~2024-12-01] VITALS: Ht 177.8 cm; Wt 92.5 kg
[~2024-12-01 12:13] MED LIST changes: -ALBUAER3 IN; -DIVA250T12 PO; -INSU100I26 SC; -LEVE750T15 PO; -QUET200T45 PO
[2024-12-01] MEDS: ROCURONIUM 10MG/ML 10ML VIAL IV ONE ×2 (12:25→13:12)
[2024-12-01] MEDS: ETOMIDATE (2MG/ML) 20ML VIAL IV ONE ×2 (12:25→13:12)
--- NOTE | 2024-12-01 12:54 | ED.PDOC ---
Altered Mental Status HPI Comments This is a 44 year-old male, with a Hx of DM who presents to the ED via EMS with Altered Consciousness as of X1 day ago. EMS reports patient had symptoms of N/V/D over the past X3 days. Per EMS, patients blood sugar was highly elevated, 500 on scene. Patient takes insulin as prescribed for DM. Upon evaluation, issac schofield appears altered, is unable to tolerate liquids, and can only state his name. Patient is unable to answer further questions at this time due to his altered state. Chief Complaint: ALOC Time Seen by MD: 12:24 Primary Care Provider: VITO Reviewed Notes: Nurses Notes, Medications, Allergies Allergies: Coded Allergies: Watermelon Flavoring Agent (non-scr (Verified Allergy, Unknown, 12/30/22) Home Meds Reported Medications Quetiapine Fumarate (Quetiapine Fumarate ER) 400 Mg Tab, 1 TAB PO DAILY for 90 Days, #90 12/21/23 Aripiprazole (Abilify) 20 Mg Tab, 15 MG PO DAILY for 30 Days, #30 12/21/23 Gabapentin (Gabapentin) 300 Mg Cap, 1 CAP PO TID for 30 Days, #90 12/21/23 Albuterol Sulfate (Albuterol Sulfate Hfa) 108 Mcg/Act Aer, 1 PUFF INH Q4HR for 34 Days, #18 12/21/23 Tamsulosin HCl (Tamsulosin Hydrochloride) 0.4 Mg Cap, 1 CAP PO DAILY for 90 Days, #90 09/26/23 Hydroxyzine HCl (Hydroxyzine Hydrochloride) 25 Mg Tab, 1 TAB PO BID for 30 Days, #60 09/26/23 Oxcarbazepine (Trileptal) 600 Mg Tab, 300 MG PO DAILY, TAB 09/26/23 Sertraline Hcl (Sertraline Hcl) 50 Mg Tab, 150 MG PO DAILY for 30 Days, MG 09/26/23 Divalproex Sodium (Divalproex Sodium) 500 Mg Tab, 500 MG PO BID, MG 09/26/23 Levetiracetam (KEPPRA TABLET) 500 Mg Tb, 750 MG PO BID, TAB 09/26/23 Insulin NPH (Human) (Isophane) (Humulin N) 100 Unit/Ml Inj, UNIT SC UD for 84 Days, #30 08/29/20 Cariprazine HCl (Vraylar) 6 Mg Cap, 6 MG PO QAM, CAP 08/29/20 Benztropine Mesylate (Benztropine Mesylate) 1 Mg Tab, 1.5 MG PO QAM, MG 08/29/20 Information Source: Patient Mode of Arrival: EMS Severity: Moderate Duration: Since onset Prehospital treatment: None Quality: Decreased Alertness, Change in Behavior, Confusion History of: Diabetes Past Medical History PAST MEDICAL HISTORY: Anxiety, Asthma, CVA, Depression, DM, HTN, Schizophrenia, Seizures Family History Family History: Family hx of Cancer Social History Smoker: Non-Smoker Alcohol: Occasionally Drugs: Marijuana Lives In: Home Unable to Obtain due to: Altered Mental Status Physical Exam General Appearance: Moderate Distress HEENT: Normal ENT Inspection, Pharynx Normal, TMs Normal Neck: Full Range of Motion, Non-Tender, Normal, Normal Inspection Respiratory: Accessory Muscle Use, Respiratory Distress Cardiovascular: Tachycardia Breast Exam: Deferred Gastrointestinal: No Organomegaly, Non Tender, No Pulsatile Mass, Normal Bowel Sounds, Soft Genitalia: Deferred Pelvic: Deferred Rectal: Deferred Extremities: No calf tenderness, Normal capillary refill, Normal inspection, Normal range of motion, Non-tender, No pedal edema Musculoskeletal : Apperance: Normal Neurologic: Alert Cerebellar Function: NOT DONE Reflexes: NOT DONE Skin: Normal Color Peripheral Pulses: 3+ Radial (R), 3+ Radial (L) Lymphatic: No Adenopathy EKG EKG : Pulse Rate (adult): 119 [place]: Normal Cardiac Rhythm: ST Block: None ST: Normal Comments Probable LAE Was a procedure done? Was a procedure done?: Yes Sedation Sedation?: Yes Informed consent obtained: Yes Sedation start time: 12:30 Sedation end time: 12:40 Sedation total time: n/a Sedation provider statement: ongoing sedation per intubation protocol Central Line Recorder of insertion practice: National Sales Manager Occupation of turner machine operator: Attending Physician Indication: Hypotension, CVP monitoring Room prepared for procedure: Yes National Sales Manager performed hand hygien: Yes Maximal sterile barrier precau: Mask/Eye shield, Sterile gown Skin Preparation: Chlorhexidine gluconate, Providine iodine Skin preparation completely dr: Yes Insertion site: Right, Internal jugular Central line catheter type: [id number] dialysis Number of lumens: 3 Antiseptic ointment applied to: Yes Post Assessment: Chest X-Ray Intubation Indication: Altered Mental Status Prep: No Preoxygenation Pretreated with: Sedation Medicated with: Other (40mg Etomidate and 100mg NAKIA) Intubation Approach: Orotracheal Intubation size: cm (24) Informed consent obtained: Yes Risks/benefits/alt described: Yes Differential Diagnosis (ALOC) Differential Diagnosis: Dehydration, Hypoglycemia, DKA X-Ray, Labs, Meds, VS Vital Signs Date Time Temp Pulse Resp B/P (MAP) Pulse Ox O2 Delivery O2 Flow Rate FiO2 12/01/24 15:30 94.1 125 28 105/53 (70) 100 94.1 12/01/24 15:15 93.9 120 28 127/77 (94) 100 93.9 12/01/24 15:00 93.6 118 28 117/67 (84) 100 93.6 12/01/24 15:00 117/67 12/01/24 14:57 98.0 115 28 116/66 100 40 98.0 12/01/24 14:36 115 28 116/66 (83) 100 40 12/01/24 14:30 93.6 115 28 116/67 (83) 100 93.6 12/01/24 14:15 93.4 115 28 116/66 (83) 100 93.4 12/01/24 14:00 120/69 12/01/24 14:00 93.4 117 29 120/69 (86) 100 93.4 12/01/24 13:45 93.2 117 21 129/75 (93) 100 93.2 12/01/24 13:30 93.2 118 28 136/82 (100) 100 93.2 12/01/24 13:15 93.2 120 28 158/101 (120) 100 93.2 12/01/24 13:03 120 28 169/108 (128) 100 100 12/01/24 13:00 169/108 12/01/24 13:00 121 28 169/108 (128) 100 12/01/24 13:00 119 12/01/24 12:34 119 12/01/24 12:25 146/85 12/01/24 12:25 118 25 146/85 (105) 100 12/01/24 12:25 118 25 100 Simple Mask* 8 60 12/01/24 12:19 98.0 128 48 129/85 98 98.0 Lab Test 12/01/24 15:00 12/01/24 14:22 12/01/24 13:49 12/01/24 13:23 Range/Units POC Glucose > 600 *H > 600 *H 70-106 mg/dl Blood Gas Specimen Type Arterial Blood Gas Sample Site Right radial Blood Gas Patient Temperature 37.0 Arterial Blood Date Drawn [id number] Arterial Blood pH 6.755 *L 7.350-7.450 Arterial Blood Partial Pressure CO2 30.2 L 35.0-48.0 mmHg Arterial Blood Partial Pressure O2 425.0 *H 83.0-108.0 mmHg Arterial Blood HCO3 4.1 L 21.0-28.0 mmol/L Arterial Blood Oxygen Saturation 99.5 H 94.0-98.0 % Arterial Blood Base Excess -30.8 L -2.0-3.0 mmol/L Arterial Blood Oxyhemoglobin 98.8 H 94.0-98.0 % Arterial Blood Carboxyhemoglobin 0.0 L 0.5-1.5 % Arterial Blood Methemoglobin 0.7 0.0-1.5 % Eligio Test Modified Blood Gas Total Hemoglobin 13.10 L 13.5-17.5 g/dL Blood Gas Set Respiration Rate 28.0 Blood Gas Modality Vent - ac FiO2 % 100.0 Blood Gas Tidal Volume 500.0 Blood Gas PEEP or CPAP 5.0 Blood Gas Critical Value Read Back yes Blood Gas Notified Whom Blood Gas Notified Time [id number] Blood Gas Notified By erp pm dean White Blood Count 28.0 H 4.4-10.8 10^3/uL Red Blood Count 4.19 L 4.5-5.90 10^6/uL Hemoglobin 12.8 L 13.5-17.5 g/dL Hematocrit 45.4 41.0-53.0 % Mean Corpuscular Volume 108.2 H 80.0-100.0 fL Mean Corpuscular Hemoglobin 30.5 28.0-32.0 pg Mean Corpuscular Hemoglobin Concent 28.2 L 32.0-36.0 g/dL Red Cell Distribution Width 14.3 11.8-14.3 % Platelet Count 385 140-450 10^3/uL Mean Platelet Volume 9.2 6.9-10.8 fL Neutrophils (%) (Auto) 37.0-80.0 % Lymphocytes (%) (Auto) 10.0-50.0 % Monocytes (%) (Auto) 0.0-12.0 % Basophils (%) (Auto) 0.0-2.0 % Neutrophils # (Auto) 1.6-8.6 10 ^3/uL Lymphocytes # (Auto) 0.4-5.4 10 ^3/uL Monocytes # (Auto) 0-1.3 10 ^3/uL Differential Total Cells Counted 100.0 100 Neutrophils % (Manual) 66 37.0-80.0 Band Neutrophils % (Manual) 12 Lymphocytes % (Manual) 12 10.0-50.0 Monocytes % (Manual) 8 0-12 Eosinophils % (Manual) 0 0-7 Basophils % (Manual) 0 0.0-2.0 Metamyelocytes % (manual) 2 Myelocytes % (Manual) 0 Promyelocytes % (Manual) 0 Blast Cells % (Manual) 0 Reactive Lymphocytes 0 Platelet Estimate Adequate Macrocytosis Moderate Sodium Level 121 L 136-145 mmol/L Potassium Level 5.4 H 3.5-5.1 mmol/L Chloride Level 83 L 98-107 mmol/L Carbon Dioxide Level < 10 *L 20-31 mmol/L Anion Gap 28.31365 H 5-15 Blood Urea Nitrogen 24 H 9-23 mg/dL Creatinine 2.36 H 0.700-1.30 mg/dL Glomerular Filtration Rate Calc 34 >90 mL/min BUN/Creatinine Ratio 10.2 10.0-20.0 Serum Glucose 1106 *H 74-106 mg/dL Serum Osmolality Pending Calcium Level 10.0 8.7-10.4 mg/dL Phosphorus Level 13.7 H 2.4-5.1 mg/dL Magnesium Level 2.3 1.6-2.6 mg/dL Beta-Hydroxybutyric Acid > 4.500 H < 0.4 mmol/L Test 12/01/24 12:25 12/01/24 00:00 Range/Units Blood Gas Specimen Type Arterial Blood Gas Sample Site Left radial Blood Gas Patient Temperature 37.0 Arterial Blood Date Drawn [id number] Arterial Blood pH 6.954 *L 7.350-7.450 Arterial Blood Partial Pressure CO2 < 14.1 *L 35.0-48.0 mmHg Arterial Blood Partial Pressure O2 140.4 H 83.0-108.0 mmHg Arterial Blood Oxygen Saturation 97.5 94.0-98.0 % Arterial Blood Oxyhemoglobin 96.3 94.0-98.0 % Arterial Blood Carboxyhemoglobin 0.4 L 0.5-1.5 % Arterial Blood Methemoglobin 0.8 0.0-1.5 % Eligio Test Yes Blood Gas Total Hemoglobin 13.50 13.5-17.5 g/dL Blood Gas Modality Room air FiO2 % 21.0 Blood Gas Critical Value Read Back yes Blood Gas Notified Whom Blood Gas Notified Time [id number] Blood Gas Notified By erp pm dean Urine Color Light-yellow Yellow Urine Clarity Clear Clear Urine pH 5.0 5.0-9.0 Urine Specific [place] 1.017 1.001-1.035 Urine Protein Trace H Negative Urine Ketones 2+ H Negative Urine Blood Trace H Negative /uL Urine Nitrite Negative Negative Urine Bilirubin Negative Negative Urine Urobilinogen Normal Negative mg/dL Urine Leukocyte Esterase Negative Negative /uL Urine RBC 1 0 - 3 /hpf Urine Microscopic WBC 3 0-3 /HPF Urine Squamous Epithelial Cells None seen <5 /hpf Urine Bacteria None seen None Seen /hpf Urine Mucus Few None Seen Urine Glucose 4+ H Normal mg/dL Current Medications Medications (Trade) Dose Ordered Sig/Misa Route Start Time Stop Time Status Last Admin Midazolam HCl 50 ml @ 1 mls/hr Q24H IV 12/01/24 12:45 12/01/24 13:00 Sodium Chloride 1,000 ml @ 500 mls/hr Q2H IV 12/01/24 13:30 12/01/24 17:29 12/01/24 15:31 Insulin Human (Reg)/Sodium Chloride 100 ml @ 0.5 mls/hr Q24H IV 12/01/24 13:30 12/01/24 14:00 Diagnostic Test (Pha) (Accu-Chek Comfort Curve T) 1 strip Q90MIN 12/01/24 13:30 12/01/24 15:03 Insulin Glargine (Lantus) 15 units ONCE ONCE SC 12/01/24 13:30 12/01/24 13:31 DC 12/01/24 14:00 Sodium Bicarbonate 150 ml ONCE ONCE IV 12/01/24 15:00 12/01/24 15:01 DC 12/01/24 15:08 Patient alert to name. Accessory muscle use. Respiratory distress. Blood sugar elevated. DKA. Was given bicarbonate. Had to intubate the patient. Started insulin drip. Establish intravenous access. Was given fluids. Continue to monitor. Images Reviewed?: Images reviewed and evaluated by me Time of 1ST Reevaluation: 13:25 Reevaluation 1ST: Unchanged Patient Education/Counseling: Diagnosis, Treatment Family Education/Counseling: No Family Present Medical Screening: No EMC Exist At This Time SEPSIS Sepsis Screen Date sepsis recognized/suspect: Dec 01, 2024 Time Sepsis recognized/suspect: 9 Recent Procedure: No On Antibiotic Therapy: No Respiratory Rate >20: Yes Heart Rate >90: Yes Temp<36 C (96.8 F) or >38.3 C: No SBP <90 or MAP <65 mmHG: No New Acute Mental Status Change: Yes Is the patient on CPAP, BIPAP,: No Physician Orders Abg W/ Co-Ox (12/01/24 12:18) Midazolam Drip 50 Mg/50ml (Versed Drip 5 (12/01/24 12:45) Rass Sedation Scale Q1HR (12/01/24 12:32) Communication Order (12/01/24 12:32) Chest Portable (12/01/24 12:45) Abg W/ Co-Ox (12/01/24 14:00) Ventilator Orders (12/01/24 12:50) Respiratory Culture W/ Gs (12/01/24 12:50) Insert [place]rellana Catheter QSHIFT (12/01/24 13:15) Ngt/Ogt (12/01/24 ) Insulin Drip Protocol (12/01/24 ) Sodium Chloride 0.9% (12/01/24 13:30) Sodium Chloride 0.9% (12/01/24 17:30) Sodium Chloride 0.9% (12/01/24 19:30) Insulin Drip 100 Unit/100ml (Myxredlin 1 (12/01/24 13:30) Dextrose 50% Syringe (12/01/24 13:30) Glucose Blood (Accu-Chek Comfort Curve T (12/01/24 13:30) Osmolality, Serum (12/01/24 13:16) Abg W/ Co-Ox (12/01/24 13:16) Basic Metabolic Panel (12/02/24 01:16) Basic Metabolic Panel (12/02/24 07:16) Neurological Assessment (12/01/24 13:16) Vs/Hemodynamics .PER UNIT PROTOCOL (12/01/24 13:16) Insulin Lantus (Glargine) (Lantus) (12/02/24 10:00) Vital Signs Date Time Temp Pulse Resp B/P (MAP) Pulse Ox O2 Delivery O2 Flow Rate FiO2 12/01/24 15:30 94.1 125 28 105/53 (70) 100 94.1 12/01/24 15:15 93.9 120 28 127/77 (94) 100 93.9 12/01/24 15:00 93.6 118 28 117/67 (84) 100 93.6 12/01/24 15:00 117/67 12/01/24 14:57 98.0 115 28 116/66 100 40 98.0 12/01/24 14:36 115 28 116/66 (83) 100 40 12/01/24 14:30 93.6 115 28 116/67 (83) 100 93.6 12/01/24 14:15 93.4 115 28 116/66 (83) 100 93.4 12/01/24 14:00 120/69 12/01/24 14:00 93.4 117 29 120/69 (86) 100 93.4 12/01/24 13:45 93.2 117 21 129/75 (93) 100 93.2 12/01/24 13:30 93.2 118 28 136/82 (100) 100 93.2 12/01/24 13:15 93.2 120 28 158/101 (120) 100 93.2 12/01/24 13:03 120 28 169/108 (128) 100 100 12/01/24 13:00 169/108 12/01/24 13:00 121 28 169/108 (128) 100 12/01/24 13:00 119 12/01/24 12:34 119 12/01/24 12:25 146/85 12/01/24 12:25 118 25 146/85 (105) 100 12/01/24 12:25 118 25 100 Simple Mask* 8 60 12/01/24 12:19 98.0 128 48 129/85 98 98.0 Laboratory Tests Test 12/01/24 13:23 White Blood Count 28.0 10^3/uL (4.4-10.8) H Medications Medications Dose Ordered Sig/Misa Route Start Time Stop Time Status Last Admin Dose Admin Diagnostic Test (Pha) 1 strip Q90MIN 12/01/24 13:30 12/01/24 15:03 Insulin Glargine 15 units ONCE ONCE SC 12/01/24 13:30 12/01/24 13:31 DC 12/01/24 14:00 Insulin Human (Reg)/Sodium Chloride 100 ml @ 0.5 mls/hr Q24H IV 12/01/24 13:30 12/01/24 14:00 Midazolam HCl 50 ml @ 1 mls/hr Q24H IV 12/01/24 12:45 12/01/24 13:00 Sodium Bicarbonate 150 ml ONCE ONCE IV 12/01/24 15:00 12/01/24 15:01 DC 12/01/24 15:08 Sodium Chloride 1,000 ml @ 500 mls/hr Q2H IV 12/01/24 13:30 12/01/24 17:29 12/01/24 15:31 Departure 1 Departure Time of Disposition: 15:58 Impression: Primary Impression: Diabetic ketoacidosis Qualified Codes: E13.10 - Other specified diabetes mellitus with ketoacidosis without coma Disposition: ADMITTED INPATIENT Admit to: Med Surg Condition: Guarded Critical Care Note Critical Care Time?: Yes (90 min-critical care time only) Stability Stability form required: No Heart Score Heart Score: Heart Score Response (Comments) Value History Moderate Suspicious 1 EKG Normal 0 Age <45 0 Risk Factors 1 or 2 risk factors 1 Troponin Normal limit 0 Total 2 I personally scribed for REINALDO TRIANA MD ([email or web address]) on 12/01/24 at 12:54. Electronically submitted by Nicole Bahena ([employer]). I personally scribed for REINALDO TRIANA MD ([email or web address]) on 12/01/24 at 13:00. Electronically submitted by Nicole Bahena ([employer]). REINALDO TRIANA MD Dec 01, 2024 12:54
[2024-12-01] MEDS: MIDAZOLAM DRIP 50 mg/50mL 50 ML IV SCH (13:00)
[2024-12-01] MEDS: MIDAZOLAM DRIP 50 mg/50mL 50 ML IV ONE (13:12)
[2024-12-01] MEDS ORDERED: DEXTROSE (50%) 50ML SYRG IV PRN ×2 (13:30→16:45)
[2024-12-01 13:33] LABS: Hematocrit 45.4 % (41.0-53.0); Hemoglobin 12.8 g/dL (13.5-17.5); Mean Corpuscular Hemoglobin 30.5 pg (28.0-32.0); Mean Corpuscular Volume 108.2 fL (80.0-100.0)
[2024-12-01] MEDS: SODIUM CHLORIDE 0.9% 1,000 ML IV SCH ×5 (13:41→21:21)
[2024-12-01 13:42] LABS: Anion Gap 28.00001 (5-15); Calcium 10.0 mg/dL (8.7-10.4)
[2024-12-01 13:47] LABS: BUN/Creatinine Ratio 10.2 (10.0-20.0)
[2024-12-01 13:48] LABS: Magnesium 2.3 mg/dL (1.6-2.6)
[2024-12-01] MEDS: ACCU-CHEK COMFORT CURVE STRIP VI SCH ×2 (13:49→18:12)
[2024-12-01 13:56] LABS: Blood Urea Nitrogen 24 mg/dL (9-23); Chloride 83 mmol/L (98-107); Potassium 5.4 mmol/L (3.5-5.1); Sodium 121 mmol/L (136-145)
[2024-12-01] MEDS: INSULIN LANTUS (GLARGINE) 1 /0.01ml (100units/ml) SC ONE ×2 (14:00→17:26)
[2024-12-01] MEDS: INSULIN DRIP 100 UNIT/100ML 100 ML IV SCH ×4 (14:00→22:54)
[2024-12-01 14:06] LABS: Carbon Dioxide < 10 mmol/L (20-31); Glucose 1106 mg/dL (74-106)
--- NOTE | 2024-12-01 14:30 | ECG ---
[facility] Test Date: 2024-12-01 Test Time: 12:30:59 Pat Name: SAGE BONILLA Department: [facility] ED Room: [address] [place] [address] Gender: M Appointment Setter: KATHERINE : 1980 Requested By: REINALDO TRIANA Order Number: [id number] Reading MD: Chino Aguilar Measurements Intervals [place] Rate: 119 P: 72 TN: 163 QRS: 66 QRSD: 92 T: 1 QT: 314 QTc: 442 Interpretive Statements Sinus tachycardia Probable left atrial enlargement Electronically Signed On 12-07-2024 21:47:33 PDT by Chino Aguilar Please click the below link to view image of tracing.
[2024-12-01 14:31] LABS: Base Excess -30.8 mmol/L (-2.0-3.0)
[2024-12-01 14:32] LABS: Macrocytosis Moderate; Total Cells Counted 100.0 (100)
--- NOTE | 2024-12-01 14:52 | DVH ---
INDICATION: S/P INTUBATION TECHNIQUE: Frontal view of the chest. COMPARISON: XY CHEST PORTABLE on DOS: 12/20/23, XY CHEST TWO VIEWS ROUTINE on DOS: 12/13/23, XY CHEST XRAY 1 VIEW on DOS: 09/26/23, XY CHEST XRAY 1 VIEW on DOS: 12/30/22, CHEST XRAY 1 VIEW on DOS: 08/29/20 FINDINGS: Endotracheal tube 5 cm from the laci. Nasogastric tube tip in the stomach. Right central venous c atheter tip in the SVC.. The heart and mediastinal contours are grossly unremarkable. There is no ev idence of pleural disease. The lungs are clear. The bony structures of the chest are intact withou t fracture. IMPRESSION: 1. No evidence of acute disease.
[2024-12-01] MEDS: SODIUM BICARB 8.4% 50Meq/50ml SYR Vial IV ONE (15:08)
[2024-12-01 15:17] LABS: Urine Protein, UAD TRACE (Negative)
[2024-12-01] MEDS: fentaNYL Drip 2500mCg/250mlNS 250 ML IV ONE (16:29)
[2024-12-01] MEDS: fentaNYL Drip 2500mCg/250mlNS 250 ML IV SCH (16:30)
[2024-12-01] MEDS ORDERED: NITROGLYCERIN 0.4 MG SL TAB SL PRN (16:45)
[2024-12-01] MEDS ORDERED: ONDANSETRON HCL 4 MG/2 ML VIAL IV PRN (16:45)
[2024-12-01] MEDS ORDERED: MORPHINE SULFATE INJ 2 MG/ml SYRG IV PRN (16:45)
--- NOTE | 2024-12-01 16:51 | DVHHP2 ---
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 Per EMS reports patient had symptoms of nausea vomiting and diarrhea over the past 3 days. Also noted was the patient's blood sugar was elevated 500 on the field. Also reported that patient takes insulin for his diabetes. Unable to obtain further report from patient as patient is currently intubated on the vent. Called to Durga Gamino who is an individual that lives with him states that he is not biologic able is considered the patient's father. He reports that the patient has not been checking his blood sugar or taking his pills. He also reports that the patient drinks heavily. He endorsed that the patient was becoming delusional and was seeing things on the floor. Reports that the patient was clenching his fists and tightening them up. Also mumbling words that were unclear. He also endorses that the patient was not eating anything for 3 days He then called paramedics for assistance. Updated them with plan of care with all questions answered. 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: CVA Psych: Anxiety, Bipolar, Depression, Schizophrenia Endocrine: Diabetes Past Medical History Seizures Vitamin-D deficiency ICH SDH Past Surgical History: Other (The patient) Smoke: No ALCOHOL: heavy Drugs: Marijuana Lives: with Family Domestic Violence: Neg Review of Systems Constitutional: Yes: Other (ALOC) Allergies: Coded Allergies: Watermelon Flavoring Agent (non-scr (Verified Allergy, Unknown, 12/30/22) Medications Current Medications Medications Dose Ordered Sig/Misa Route Start Time Stop Time Status Last Admin Dose Admin Midazolam HCl 50 ml @ 1 mls/hr Q24H IV 12/01/24 12:45 12/01/24 13:00 5 MLS/HR Sodium Chloride 1,000 ml @ 500 mls/hr Q2H IV 12/01/24 13:30 12/01/24 17:29 12/01/24 15:31 500 MLS/HR Sodium Chloride 1,000 ml @ 250 mls/hr Q4H IV 12/01/24 17:30 12/01/24 19:29 Sodium Chloride 1,000 ml @ 150 mls/hr Q6H40M IV 12/01/24 19:30 Insulin Human (Reg)/Sodium Chloride 100 ml @ 0.5 mls/hr Q24H IV 12/01/24 13:30 12/01/24 14:00 7 MLS/HR Dextrose 50 ml UD PRN IV 12/01/24 13:30 Diagnostic Test (Pha) 1 strip Q90MIN 12/01/24 13:30 12/01/24 16:34 1 STRIP Insulin Glargine 15 units DAILY SC 12/02/24 10:00 Fentanyl Citrate 250 ml @ 2.5 mls/hr Q24H IV 12/01/24 16:30 UNV Exam Vital Signs Vital Signs Date Time Temp Pulse Resp B/P (MAP) Pulse Ox O2 Delivery O2 Flow Rate FiO2 12/01/24 16:00 108/57 12/01/24 15:54 125 29 100 40 12/01/24 15:45 94.3 94.3 12/01/24 12:25 Simple Mask* 8 Respiratory: Normal air movement Cardiovascular: Normal S1, Normal S2 Abdominal: Soft Labs/Xrays Labs Test 12/01/24 15:00 12/01/24 14:22 12/01/24 13:23 12/01/24 00:00 Range/Units POC Glucose > 600 *H 70-106 mg/dl Blood Gas Specimen Type Arterial Blood Gas Sample Site Right radial Blood Gas Patient Temperature 37.0 Arterial Blood Date Drawn [id number] Arterial Blood pH 6.755 *L 7.350-7.450 Arterial Blood Partial Pressure CO2 30.2 L 35.0-48.0 mmHg Arterial Blood Partial Pressure O2 425.0 *H 83.0-108.0 mmHg Arterial Blood HCO3 4.1 L 21.0-28.0 mmol/L Arterial Blood Oxygen Saturation 99.5 H 94.0-98.0 % Arterial Blood Base Excess -30.8 L -2.0-3.0 mmol/L Arterial Blood Oxyhemoglobin 98.8 H 94.0-98.0 % Arterial Blood Carboxyhemoglobin 0.0 L 0.5-1.5 % Arterial Blood Methemoglobin 0.7 0.0-1.5 % Eligio Test Modified Blood Gas Total Hemoglobin 13.10 L 13.5-17.5 g/dL Blood Gas Set Respiration Rate 28.0 Blood Gas Modality Vent - ac FiO2 % 100.0 Blood Gas Tidal Volume 500.0 Blood Gas PEEP or CPAP 5.0 Blood Gas Critical Value Read Back yes Blood Gas Notified Whom Blood Gas Notified Time [id number] Blood Gas Notified By case sealer dean White Blood Count 28.0 H 4.4-10.8 10^3/uL Red Blood Count 4.19 L 4.5-5.90 10^6/uL Hemoglobin 12.8 L 13.5-17.5 g/dL Hematocrit 45.4 41.0-53.0 % Mean Corpuscular Volume 108.2 H 80.0-100.0 fL Mean Corpuscular Hemoglobin 30.5 28.0-32.0 pg Mean Corpuscular Hemoglobin Concent 28.2 L 32.0-36.0 g/dL Red Cell Distribution Width 14.3 11.8-14.3 % Platelet Count 385 140-450 10^3/uL Mean Platelet Volume 9.2 6.9-10.8 fL Neutrophils (%) (Auto) 37.0-80.0 % Lymphocytes (%) (Auto) 10.0-50.0 % Monocytes (%) (Auto) 0.0-12.0 % Basophils (%) (Auto) 0.0-2.0 % Neutrophils # (Auto) 1.6-8.6 10 ^3/uL Lymphocytes # (Auto) 0.4-5.4 10 ^3/uL Monocytes # (Auto) 0-1.3 10 ^3/uL Differential Total Cells Counted 100.0 100 Neutrophils % (Manual) 66 37.0-80.0 Band Neutrophils % (Manual) 12 Lymphocytes % (Manual) 12 10.0-50.0 Monocytes % (Manual) 8 0-12 Eosinophils % (Manual) 0 0-7 Basophils % (Manual) 0 0.0-2.0 Metamyelocytes % (manual) 2 Myelocytes % (Manual) 0 Promyelocytes % (Manual) 0 Blast Cells % (Manual) 0 Reactive Lymphocytes 0 Platelet Estimate Adequate Macrocytosis Moderate Sodium Level 121 L 136-145 mmol/L Potassium Level 5.4 H 3.5-5.1 mmol/L Chloride Level 83 L 98-107 mmol/L Carbon Dioxide Level < 10 *L 20-31 mmol/L Anion Gap 28.09375 H 5-15 Blood Urea Nitrogen 24 H 9-23 mg/dL Creatinine 2.36 H 0.700-1.30 mg/dL Glomerular Filtration Rate Calc 34 >90 mL/min BUN/Creatinine Ratio 10.2 10.0-20.0 Serum Glucose 1106 *H 74-106 mg/dL Calcium Level 10.0 8.7-10.4 mg/dL Phosphorus Level 13.7 H 2.4-5.1 mg/dL Magnesium Level 2.3 1.6-2.6 mg/dL Beta-Hydroxybutyric Acid > 4.500 H < 0.4 mmol/L Urine Color Light-yellow Yellow Urine Clarity Clear Clear Urine pH 5.0 5.0-9.0 Urine Specific [place] 1.017 1.001-1.035 Urine Protein Trace H Negative Urine Ketones 2+ H Negative Urine Blood Trace H Negative /uL Urine Nitrite Negative Negative Urine Bilirubin Negative Negative Urine Urobilinogen Normal Negative mg/dL Urine Leukocyte Esterase Negative Negative /uL Urine RBC 1 0 - 3 /hpf Urine Microscopic WBC 3 0-3 /HPF Urine Squamous Epithelial Cells None seen <5 /hpf Urine Bacteria None seen None Seen /hpf Urine Mucus Few None Seen Urine Glucose 4+ H Normal mg/dL Microbiology Date/Time Source Procedure Growth Status 12/01/24 00:00 Sputum Endotracheal Wash Gram Stain - Final Resulted 12/01/24 00:00 Sputum Endotracheal Wash Respiratory Culture Pending Resulted SEPSIS Sepsis Screen Date sepsis recognized/suspect: Dec 01, 2024 Time Sepsis recognized/suspect: 1225 Recent Procedure: No On Antibiotic Therapy: No Respiratory Rate >20: Yes Heart Rate >90: Yes Temp<36 C (96.8 F) or >38.3 C: Yes SBP <90 or MAP <65 mmHG: No New Acute Mental Status Change: No Is the patient on CPAP, BIPAP,: No Physician Orders Abg W/ Co-Ox (12/01/24 12:18) Midazolam Drip 50 Mg/50ml (Versed Drip 5 (12/01/24 12:45) Rass Sedation Scale Q1HR (12/01/24 12:32) Communication Order (12/01/24 12:32) Chest Portable (12/01/24 12:45) Abg W/ Co-Ox (12/01/24 14:00) Ventilator Orders (12/01/24 12:50) Respiratory Culture W/ Gs (12/01/24 12:50) Insert [place]rellana Catheter QSHIFT (12/01/24 13:15) Ngt/Ogt (12/01/24 ) Insulin Drip Protocol (12/01/24 ) Sodium Chloride 0.9% (12/01/24 13:30) Sodium Chloride 0.9% (12/01/24 17:30) Sodium Chloride 0.9% (12/01/24 19:30) Insulin Drip 100 Unit/100ml (Myxredlin 1 (12/01/24 13:30) Dextrose 50% Syringe (12/01/24 13:30) Glucose Blood (Accu-Chek Comfort Curve T (12/01/24 13:30) Osmolality, Serum (12/01/24 13:16) Abg W/ Co-Ox (12/01/24 13:16) Basic Metabolic Panel (12/02/24 01:16) Basic Metabolic Panel (12/02/24 07:16) Neurological Assessment (12/01/24 13:16) Vs/Hemodynamics .PER UNIT PROTOCOL (12/01/24 13:16) Insulin Lantus (Glargine) (Lantus) (12/02/24 10:00) Communication Order (12/01/24 16:18) Fentanyl Drip 2500mcg/250mlns (12/01/24 16:30) Vital Signs Date Time Temp Pulse Resp B/P (MAP) Pulse Ox O2 Delivery O2 Flow Rate FiO2 12/01/24 16:00 108/57 12/01/24 15:54 125 29 106/59 (75) 100 40 12/01/24 15:45 94.3 123 28 106/59 (75) 100 94.3 12/01/24 15:30 94.1 125 28 105/53 (70) 100 94.1 12/01/24 15:15 93.9 120 28 127/77 (94) 100 93.9 12/01/24 15:00 93.6 118 28 117/67 (84) 100 93.6 12/01/24 15:00 117/67 12/01/24 14:57 98.0 115 28 116/66 100 40 98.0 12/01/24 14:36 115 28 116/66 (83) 100 40 12/01/24 14:30 93.6 115 28 116/67 (83) 100 93.6 12/01/24 14:15 93.4 115 28 116/66 (83) 100 93.4 12/01/24 14:00 120/69 12/01/24 14:00 93.4 117 29 120/69 (86) 100 93.4 12/01/24 13:45 93.2 117 21 129/75 (93) 100 93.2 12/01/24 13:30 93.2 118 28 136/82 (100) 100 93.2 12/01/24 13:15 93.2 120 28 158/101 (120) 100 93.2 12/01/24 13:03 120 28 169/108 (128) 100 100 12/01/24 13:00 169/108 12/01/24 13:00 121 28 169/108 (128) 100 12/01/24 13:00 119 12/01/24 12:34 119 12/01/24 12:25 146/85 12/01/24 12:25 118 25 146/85 (105) 100 12/01/24 12:25 118 25 100 Simple Mask* 8 60 12/01/24 12:19 98.0 128 48 129/85 98 98.0 Laboratory Tests Test 12/01/24 13:23 White Blood Count 28.0 10^3/uL (4.4-10.8) H Medications Medications Dose Ordered Sig/Misa Route Start Time Stop Time Status Last Admin Dose Admin Diagnostic Test (Pha) 1 strip Q90MIN 12/01/24 13:30 12/01/24 16:34 1 STRIP Insulin Glargine 15 units ONCE ONCE SC 12/01/24 13:30 12/01/24 13:31 DC 12/01/24 14:00 15 UNITS Insulin Human (Reg)/Sodium Chloride 100 ml @ 0.5 mls/hr Q24H IV 12/01/24 13:30 12/01/24 14:00 7 MLS/HR Midazolam HCl 50 ml @ 1 mls/hr Q24H IV 12/01/24 12:45 12/01/24 13:00 5 MLS/HR Sodium Bicarbonate 150 ml ONCE ONCE IV 12/01/24 15:00 12/01/24 15:01 DC 12/01/24 15:08 150 ML Sodium Chloride 1,000 ml @ 500 mls/hr Q2H IV 12/01/24 13:30 12/01/24 17:29 12/01/24 15:31 500 MLS/HR Assessment/Plan Assessment/Plan Assessment Acute metabolic encephalopathy DKA Acute hypoxic respiratory failure requiring intubation Leukocytosis unclear etiology Rule out sepsis Hyperkalemia ETOH abuse History of anxiety History of asthma History of CVA History of depression History of diabetes type 1 History of hypertension History of schizophrenia History of seizures History of vitamin-D deficiency History of bipolar disorder History of ICH History of SDH 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 History of alcohol use History of marijuana use Plan Admit to ICU Insulin drip UA Chest x-ray Replete lytes Sedation Vasopressors as needed to keep maps greater than 65 Orellana catheterization Respiratory culture Vent management ABG CT head IV antibiotics-ceftriaxone + azithromycin Duo nebs Ammonia level Lactic level Blood cultures Urine culture ESR CRP Beta hydroxy noted NPO Home medications reconciled DVT prophylaxis-SCDs PUD prophylaxis-PPIs Discussed plan of care with nurse Nephro consult Pulmonary consult Counseled family on assisting with cessation of polysubstance use [id number] Advanced care planning discussed [id number] Behavior change smoking greater than 10 minutes about use of other options also gave option of nicotine patch [id number] Preventive counseling healthy eating habits, physical activity, and regular checkups Plan discussed with: Other (Family) Date of Service: Dec 01, 2024 Billing Provider: JULIUS RIBERA Common Visit Codes: [id number] INP/OBS CARE (HIGH) Secondary Visit Codes: [id number] COUNSELING IND, 81000-ZIWNS CHNG SMOKING >10MIN, [id number] CARE PLAN 30 MINUTES JULIUS RIBERA Dec 01, 2024 16:50
[2024-12-01 16:54] LABS: Base Excess -22.5 mmol/L (-2.0-3.0)
[2024-12-01 17:43] LABS: Hemoglobin 11.4 g/dL (13.5-17.5)
[2024-12-01 17:46] LABS: Hematocrit 37.3 % (41.0-53.0); Mean Corpuscular Hemoglobin 29.8 pg (28.0-32.0); Mean Corpuscular Volume 97.4 fL (80.0-100.0)
[2024-12-01 17:47] LABS: Potassium 4.7 mmol/L (3.5-5.1)
[2024-12-01 17:48] LABS: Anion Gap 31.00001 (5-15); Calcium 8.9 mg/dL (8.7-10.4)
[2024-12-01 17:54] LABS: BUN/Creatinine Ratio 13.6 (10.0-20.0); Magnesium 1.8 mg/dL (1.6-2.6)
[2024-12-01 17:57] LABS: Lactic Acid w/Reflex 2.4 mmol/L (0.4-2.0)
[2024-12-01] MEDS ORDERED: IPRATROPIUM BROM 0.5 MG/2.5ML INH SOL NEB PRN (18:00)
[2024-12-01 18:02] LABS: Blood Urea Nitrogen 32 mg/dL (9-23); Chloride 88 mmol/L (98-107); Sodium 129 mmol/L (136-145)
[2024-12-01 18:03] LABS: Carbon Dioxide < 10 mmol/L (20-31)
[2024-12-01 18:04] LABS: Glucose 854 mg/dL (74-106)
[2024-12-01 18:07] LABS: Total Cells Counted 100.0 (100)
[2024-12-01] MEDS: AZITHROMYCIN 500MG/ 250ML 250 ML IV ONE (18:14)
[2024-12-01] MEDS: ALBUTEROL SULF 2.5 MG/0.5ML(0.5%) NEB SOLN NEB SCH (18:36)
[2024-12-01] MEDS: IPRATROPIUM BROM 0.5 MG/2.5ML INH SOL NEB SCH (18:36)
--- NOTE | 2024-12-01 21:14 | DVH ---
EXAM: CT HEAD WITHOUT CONTRAST INDICATION: aloc TECHNIQUE: CT images of the head were obtained without administration of IV contrast. CT scans at [facility] facility use dose modulation, iterative reconstruction, and/or weight based dosing when appropriate to reduce radiation dose to as low as reasonably achievable. COMPARISON: CT HEAD WITHOUT CONTRAST on DOS: 12/13/23 FINDINGS: PARENCHYMA: No acute hemorrhage. There is no mass effect, midline shift, or herniation. Right frontal approach ventricular peritoneal shunt catheter with distal tip extending abnormally into the inferio r aspect of the 3rd ventricle potentially of the bottom of the infundibular recess. Consider repositi oning. Unchanged large area of encephalomalacia of the right anterior temporal lobe Mild scattered hy poattenuation along the periventricular, centrum semiovale, and deep white matter tracts, which are n onspecific however statistically most likely represent chronic microvascular ischemic change. VENTRICLES: No hydrocephalus. ex vacuo dilation of the right atrial trigone to right occipital horn a nd temporal horn. EXTRA-AXIAL SPACES: Unchanged area of asymmetric 0.4 cm left frontal convexity possible subdural terrell ection with intermediate signal attenuation. OTHER: Osseous structures are unchanged. Status post intubation Visualized portions of the paranasal sinuses and mastoid air cells are clear. IMPRESSION: 1. No CT evidence of an acute intracranial hemorrhage. 2. Unchanged area of asymmetric 0.4 cm left frontal convexity subdural collection with intermediate signal attenuation. Area is unchanged from 2022. Imaging finding likely benign. And may also be relat ed to slow flow along the bridging cortical veins. 3. Right frontal approach ventricular peritoneal shunt catheter with distal tip extending abnormally into the inferior aspect of the 3rd ventricle potentially of the bottom of the infundibular recess. C onsider repositioning.
[2024-12-01 22:33] LABS: Potassium 4.0 mmol/L (3.5-5.1)
[2024-12-01 22:34] LABS: Anion Gap 21 (5-15); Calcium 8.8 mg/dL (8.7-10.4)
[2024-12-01 22:38] LABS: Carbon Dioxide 16 mmol/L (20-31); Chloride 94 mmol/L (98-107); Sodium 131 mmol/L (136-145)
[2024-12-01 22:39] LABS: BUN/Creatinine Ratio 14.6 (10.0-20.0); Blood Urea Nitrogen 29 mg/dL (9-23)
[2024-12-01 22:41] LABS: Glucose 500 mg/dL (74-106)
[2024-12-01] MEDS: levETIRAcetam 500 MG TAB PO SCH (22:45)
[2024-12-02] VITALS (100 sets, daily range): BP systolic 91–138; BP diastolic 17–86; PULSE 106–124; RESP 14–29; TEMP 98.2–100; O2SAT 97–100
[2024-12-02] MEDS: SODIUM CHLORIDE 0.9% 1,000 ML IV SCH (00:11)
[2024-12-02] MEDS: INSULIN DRIP 100 UNIT/100ML 100 ML IV SCH (00:27)
[2024-12-02 01:23] LABS: Chloride 100 mmol/L (98-107); Sodium 137 mmol/L (136-145)
[2024-12-02 01:24] LABS: Anion Gap 15 (5-15); Carbon Dioxide 22 mmol/L (20-31)
[2024-12-02 01:25] LABS: Calcium 8.8 mg/dL (8.7-10.4)
[2024-12-02 01:30] LABS: BUN/Creatinine Ratio 16.6 (10.0-20.0)
[2024-12-02 01:33] LABS: Blood Urea Nitrogen 29 mg/dL (9-23); Glucose 312 mg/dL (74-106); Potassium 3.3 mmol/L (3.5-5.1)
[2024-12-02 03:52] LABS: Hematocrit 31.8 % (41.0-53.0); Hemoglobin 11.1 g/dL (13.5-17.5); Mean Corpuscular Hemoglobin 30.3 pg (28.0-32.0); Mean Corpuscular Volume 86.4 fL (80.0-100.0); Nucleated Red Blood Cells % 0.0 %
[2024-12-02 04:06] LABS: Alanine Aminotransferase 18 U/L (7-40); Anion Gap 13 (5-15); BUN/Creatinine Ratio 17.0 (10.0-20.0); Calcium 8.9 mg/dL (8.7-10.4); Carbon Dioxide 25 mmol/L (20-31); Chloride 102 mmol/L (98-107); Sodium 140 mmol/L (136-145)
[2024-12-02 04:07] LABS: Albumin 3.1 g/dL (3.2-4.8); Alkaline Phosphatase 119 U/L (46-116); Bilirubin, Total 0.2 mg/dL (0.2-1.0); Blood Urea Nitrogen 27 mg/dL (9-23); Glucose 170 mg/dL (74-106); Magnesium 1.2 mg/dL (1.6-2.6); Potassium 2.9 mmol/L (3.5-5.1); Total Protein 5.7 g/dL (5.7-8.2)
[2024-12-02] MEDS ORDERED: POTASSIUM PHOSPHATE 22 MEQ in SODIUM CHL 0.9% 100 ML IV ONE (04:45)
[2024-12-02] MEDS: MAGNESIUM SULFATE 1GM/100ML 100 ML IV SCH (04:53)
[2024-12-02] MEDS: POTASSIUM CHL 20MEQ/100ML 100 ML IV ONE (05:15)
[2024-12-02] MEDS: ALBUMIN 5% 250 ML IV ONE (05:23)
--- NOTE | 2024-12-02 05:44 | DVH ---
CHEST RADIOGRAPH Indication: intubated Technique: Single frontal view of the chest was obtained COMPARISON: XY CHEST PORTABLE on DOS: 12/01/24, XY CHEST PORTABLE on DOS: 12/20/23, XY CHEST TWO VIEWS ROUTINE on DOS: 12/13/23, XY CHEST XRAY 1 VIEW on DOS: 09/26/23, XY CHEST XRAY 1 VIEW on DOS: 12/30/22 FINDINGS: Lines and Tubes: Unchanged. Lungs: Mild bibasilar pulmonary airspace disease. Small left pleural effusion. No pneumothorax. Cardiomediastinal contours: Unremarkable Bones: Unremarkable IMPRESSION: 1. Mild bibasilar pulmonary airspace disease and small left pleural effusion. 2. Lines and tubes unchanged.
[2024-12-02 06:34] LABS: Base Excess 0.9 mmol/L (-2.0-3.0)
[2024-12-02] MEDS: POTASSIUM PHOSPHATE 22 MEQ in SODIUM CHL 0.9% 100 ML IV ONE (07:49)
[2024-12-02 09:13] LABS: Chloride 105 mmol/L (98-107); Sodium 143 mmol/L (136-145)
[2024-12-02 09:14] LABS: Anion Gap 13 (5-15); Carbon Dioxide 25 mmol/L (20-31)
[2024-12-02 09:20] LABS: BUN/Creatinine Ratio 17.2 (10.0-20.0); Blood Urea Nitrogen 23 mg/dL (9-23); Calcium 8.6 mg/dL (8.7-10.4); Glucose 115 mg/dL (74-106); Potassium 2.8 mmol/L (3.5-5.1)
--- NOTE | 2024-12-02 09:26 | DVHPN2 ---
Subjective on vent Reviewed: Care Plan, H&P, Labs, Medications, Previous Orders, Radiology Changes from previous H/P or p: No Changes Objective Vitals Vital Signs Date Time Temp Pulse Resp B/P (MAP) Pulse Ox O2 Delivery O2 Flow Rate FiO2 12/02/24 08:00 111 28 98 Mechanical Ventilator+ 28 30 30 12/02/24 06:45 98.4 98/61 (73) 209.1 Intake/Output Intake and Output 12/02/24 07:00 Intake Total 3806.5 ml Output Total 1300 ml Balance 2506.5 ml Intake Oral 60 ml IV Total 3746.5 ml Tube Feeding 0 ml Output Urine Total 1300 ml General Appearance: Other (vent) HEENT: Atraumatic, PERRLA Lungs: Other (few crackles) Cardiovascular: Other (border tachy) Abdomen: Normal bowel sounds Medications Current Medications Medications Dose Ordered Sig/Misa Route Start Time Stop Time Status Last Admin Dose Admin Midazolam HCl 50 ml @ 1 mls/hr Q24H IV 12/01/24 12:45 12/02/24 06:17 15 MLS/HR Sodium Chloride 1,000 ml @ 150 mls/hr Q6H40M IV 12/01/24 19:30 12/02/24 02:10 150 MLS/HR Dextrose 50 ml UD PRN IV 12/01/24 13:30 Cancel Insulin Glargine 15 units DAILY SC 12/02/24 10:00 Cancel Fentanyl Citrate 250 ml @ 2.5 mls/hr Q24H IV 12/01/24 16:30 12/02/24 06:21 20 MLS/HR Sodium Chloride 1,000 ml @ 150 mls/hr Q6H40M IV 12/01/24 22:45 12/02/24 06:11 150 MLS/HR Dextrose 50 ml UD PRN IV 12/01/24 16:45 Diagnostic Test (Pha) 1 strip Q90MIN 12/01/24 18:00 12/02/24 07:32 1 STRIP Insulin Glargine 15 units DAILY SC 12/02/24 10:00 Ondansetron HCl 4 mg Q4HP PRN IV 12/01/24 16:45 Acetaminophen 650 mg Q6HP PRN PO 12/01/24 16:45 Nitroglycerin 0.4 mg Q5MINP PRN SL 12/01/24 16:45 Morphine Sulfate 2 mg Q30M PRN IV 12/01/24 16:45 Ceftriaxone Sodium 50 ml @ 100 mls/hr DAILY@09 IV 12/01/24 16:45 12/01/24 17:40 100 MLS/HR Azithromycin 250 ml @ 125 mls/hr DAILY IV 12/02/24 10:00 Famotidine 20 mg DAILY IV 12/02/24 10:00 Albuterol 2.5 mg Q4HR NEB 12/01/24 18:00 12/02/24 06:00 2.5 MG Ipratropium [place] 0.5 mg Q4HR NEB 12/01/24 18:00 12/02/24 06:00 0.5 MG Levetiracetam 750 mg BID PO 12/01/24 22:00 12/01/24 22:45 750 MG Tamsulosin HCl 0.4 mg DAILY PO 12/02/24 10:00 Albuterol 2.5 mg Q4HPRN PRN NEB 12/01/24 18:00 Ipratropium [place] 0.5 mg Q4HPRN PRN NEB 12/01/24 18:00 Insulin Human (Reg)/Sodium Chloride 100 ml @ 2 mls/hr Q24H IV 12/02/24 00:15 12/02/24 04:46 4 MLS/HR Laboratory Results Laboratory Tests 12/02/24 03:00 12/02/24 08:47 Chemistry Test 12/01/24 13:23 12/01/24 17:06 12/01/24 22:00 12/02/24 00:50 Calcium Level 10.0 mg/dL (8.7-10.4) 8.9 mg/dL (8.7-10.4) 8.8 mg/dL (8.7-10.4) 8.8 mg/dL (8.7-10.4) Magnesium Level 2.3 mg/dL (1.6-2.6) 1.8 mg/dL (1.6-2.6) Phosphorus Level 13.7 mg/dL (2.4-5.1) H 10.5 mg/dL (2.4-5.1) H Test 12/02/24 03:00 12/02/24 08:47 Albumin 3.1 g/dL (3.2-4.8) L Calcium Level 8.9 mg/dL (8.7-10.4) 8.6 mg/dL (8.7-10.4) L Magnesium Level 1.2 mg/dL (1.6-2.6) L Phosphorus Level 1.4 mg/dL (2.4-5.1) L Total Protein 5.7 g/dL (5.7-8.2) LFT Test 12/02/24 03:00 Alanine Aminotransferase (ALT) 18 U/L (7-40) Alkaline Phosphatase 119 U/L (46-116) H Aspartate Amino Transferase (AST) 36 U/L (13-40) Total Bilirubin 0.2 mg/dL (0.2-1.0) Urinalysis Test 12/01/24 00:00 Urine Color Light-yellow (Yellow) Urine Clarity Clear (Clear) Urine pH 5.0 (5.0-9.0) Urine Specific [place] 1.017 (1.001-1.035) Urine Protein Trace (Negative) H Urine Ketones 2+ (Negative) H Urine Blood Trace /uL (Negative) H Urine Nitrite Negative (Negative) Urine Bilirubin Negative (Negative) Urine Urobilinogen Normal mg/dL (Negative) Urine Leukocyte Esterase Negative /uL (Negative) Urine RBC 1 /hpf (0 - 3) Urine Microscopic WBC 3 /HPF (0-3) Urine Squamous Epithelial Cells None seen /hpf (<5) Urine Bacteria None seen /hpf (None Seen) Urine Mucus Few (None Seen) Urine Glucose 4+ mg/dL (Normal) H Blood Gas Results Test 12/01/24 12:25 12/01/24 14:22 12/01/24 16:50 12/02/24 06:30 Arterial Blood pH 6.954 (7.350-7.450) 6.755 (7.350-7.450) 7.024 (7.350-7.450) 7.486 (7.350-7.450) FiO2 % 21.0 100.0 40.0 30.0 Microbiology Microbiology Date/Time Source Procedure Growth Status 12/01/24 00:00 Sputum Endotracheal Wash Gram Stain - Final Resulted 12/01/24 00:00 Sputum Endotracheal Wash Respiratory Culture Pending Resulted Assessment/Plan Assessment/Plan DKA Metabolic encephalopathy/acute Acute hypoxemic respiratory failure Pneumonia History of subdural hematoma and intracerebral bleed Status post SCHOOL COORDINATOR shunt Alcoholism Plan: Continue ventilator support. Monitor vital signs and oxygenation. Blood sugar and insulin drip. IV antibiotics. CBC CMP. Lipase. ABGs. Chest x-ray. Total critical care time 45 minutes Plan discussed with: Other (Nursing) Date of Service: Dec 02, 2024 Billing Provider: CHERIE MULLER MD Common Visit Codes: [id number] CARE 30-74 MIN CHERIE MULLER MD Dec 02, 2024 09:26
[2024-12-02] MEDS: FAMOTIDINE (10MG/ML) 2ML VL IV SCH (09:48)
[2024-12-02] MEDS: INSULIN LANTUS (GLARGINE) 1 /0.01ml (100units/ml) SC SCH (09:57)
[2024-12-02] MEDS ORDERED: INSULIN LANTUS (GLARGINE) 1 /0.01ml (100units/ml) SC SCH (10:00)
[2024-12-02] MEDS: TAMSULOSIN HYDROCHLORIDE 0.4 MG CAP PO SCH (10:15)
[2024-12-02] MEDS: AZITHROMYCIN 500MG/ 250ML 250 ML IV SCH (10:30)
--- NOTE | 2024-12-02 14:00 | DVHINCON2 ---
Date of service: Dec 02, 2024 Referring Physician Mariel Rodriguez NP Reason for Consultation Acute kidney injury History of Present Illness Mr. Madden is a 44-year-old male with numerous medical, psychiatric history who presents for further evaluation and management of altered mental status. His clinical course has been notable for initial diagnosis of severe diabetic ketoacidosis, requiring intubation, mechanical ventilation, insulin drip and ICU level care. Since hospital admission his metabolic derangements have improved significantly. He is seen in the ICU, intubated, sedated. All the history was obtained through the chart. Urine volumes are nonoliguric. All the history was obtained through the chart. 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 shunt Allergies: Coded Allergies: Watermelon Flavoring Agent (non-scr (Verified Allergy, Unknown, 12/30/22) Home Meds Reported Medications Quetiapine Fumarate (Quetiapine Fumarate ER) 400 Mg Tab, 1 TAB PO DAILY for 90 Days, #90 12/21/23 Aripiprazole (Abilify) 20 Mg Tab, 15 MG PO DAILY for 30 Days, #30 12/21/23 Gabapentin (Gabapentin) 300 Mg Cap, 1 CAP PO TID for 30 Days, #90 12/21/23 Albuterol Sulfate (Albuterol Sulfate Hfa) 108 Mcg/Act Aer, 1 PUFF INH Q4HR for 34 Days, #18 12/21/23 Tamsulosin HCl (Tamsulosin Hydrochloride) 0.4 Mg Cap, 1 CAP PO DAILY for 90 Days, #90 09/26/23 Hydroxyzine HCl (Hydroxyzine Hydrochloride) 25 Mg Tab, 1 TAB PO BID for 30 Days, #60 09/26/23 Oxcarbazepine (Trileptal) 600 Mg Tab, 300 MG PO DAILY, TAB 09/26/23 Sertraline Hcl (Sertraline Hcl) 50 Mg Tab, 150 MG PO DAILY for 30 Days, MG 09/26/23 Divalproex Sodium (Divalproex Sodium) 500 Mg Tab, 500 MG PO BID, MG 09/26/23 Levetiracetam (KEPPRA TABLET) 500 Mg Tb, 750 MG PO BID, TAB 09/26/23 Insulin NPH (Human) (Isophane) (Humulin N) 100 Unit/Ml Inj, UNIT SC UD for 84 Days, #30 08/29/20 Cariprazine HCl (Vraylar) 6 Mg Cap, 6 MG PO QAM, CAP 08/29/20 Benztropine Mesylate (Benztropine Mesylate) 1 Mg Tab, 1.5 MG PO QAM, MG 08/29/20 Current Medications Current Medications Medications (Trade) Dose Ordered Sig/Misa Route PRN Reason Start Time Stop Time Status Last Admin Sodium Chloride 1,000 ml @ 250 mls/hr Q4H IV 12/01/24 17:30 12/01/24 19:29 DC 12/01/24 17:32 Sodium Chloride 1,000 ml @ 150 mls/hr Q6H40M IV 12/01/24 19:30 12/02/24 13:26 Insulin Glargine (Lantus) 15 units DAILY SC 12/02/24 10:00 Cancel Fentanyl Citrate 250 ml @ 2.5 mls/hr Q24H IV 12/01/24 16:30 12/02/24 06:21 Sodium Chloride 1,000 ml @ 500 mls/hr Q2H IV 12/01/24 16:45 12/01/24 20:44 DC Sodium Chloride 1,000 ml @ 250 mls/hr Q4H IV 12/01/24 20:45 12/01/24 22:44 DC 12/01/24 21:21 Sodium Chloride 1,000 ml @ 150 mls/hr Q6H40M IV 12/01/24 22:45 12/02/24 06:11 Insulin Human (Reg)/Sodium Chloride 100 ml @ 0.5 mls/hr Q24H IV 12/01/24 16:45 12/01/24 21:43 DC 12/01/24 17:30 Dextrose 50 ml UD PRN IV SEE CURRENT ALGORITHM or SCALE 12/01/24 16:45 Diagnostic Test (Pha) (Accu-Chek Comfort Curve T) 1 strip Q90MIN 12/01/24 18:00 12/02/24 13:28 Insulin Glargine (Lantus) 15 units DAILY SC 12/02/24 10:00 12/02/24 09:57 Ondansetron HCl (Zofran) 4 mg Q4HP PRN IV NAUSEA / VOMITING 12/01/24 16:45 Acetaminophen (Tylenol Tablet) 650 mg Q6HP PRN PO PAIN SCALE 1-3 OR TEMP>100.4 12/01/24 16:45 Nitroglycerin (Ntrostat Sublingual) 0.4 mg Q5MINP PRN SL FOR CHEST PAIN 12/01/24 16:45 Morphine Sulfate 2 mg Q30M PRN IV FOR CHEST PAIN 12/01/24 16:45 Ceftriaxone Sodium 50 ml @ 100 mls/hr DAILY@09 IV 12/01/24 16:45 12/02/24 09:38 Azithromycin 250 ml @ 125 mls/hr DAILY IV 12/02/24 10:00 12/02/24 10:30 Famotidine (Pepcid Injection) 20 mg DAILY IV 12/02/24 10:00 12/02/24 09:48 Albuterol (Ventolin Medneb) 2.5 mg Q4HR NEB 12/01/24 18:00 12/02/24 10:01 Ipratropium [place] (Atrovent Medneb) 0.5 mg Q4HR NEB 12/01/24 18:00 12/02/24 10:01 Levetiracetam (Keppra Tablet) 750 mg BID PO 12/01/24 22:00 12/02/24 10:15 Tamsulosin HCl (Flomax) 0.4 mg DAILY PO 12/02/24 10:00 12/02/24 10:15 Albuterol (Ventolin Medneb) 2.5 mg Q4HPRN PRN NEB SHORTNESS OF BREATH 12/01/24 18:00 Ipratropium [place] (Atrovent Medneb) 0.5 mg Q4HPRN PRN NEB SHORTNESS OF BREATH 12/01/24 18:00 Insulin Human (Reg)/Sodium Chloride 100 ml @ 0.5 mls/hr Q24H IV 12/01/24 21:30 12/01/24 22:37 DC 12/01/24 21:49 Insulin Human (Reg)/Sodium Chloride 100 ml @ 1 mls/hr Q24H IV 12/01/24 22:45 12/02/24 00:15 DC 12/01/24 22:55 Insulin Human (Reg)/Sodium Chloride 100 ml @ 2 mls/hr Q24H IV 12/02/24 00:15 12/02/24 13:32 Magnesium Sulfate/ Dextrose 100 ml @ 100 mls/hr Q1HR IV 12/02/24 05:00 12/02/24 07:59 DC 12/02/24 06:10 Family History: Asthma G8 MOTHER Review of Systems Unable to be obtained, patient intubated currently. H&P Exam Vital Signs/I&O Vital Sign Date Time Temp Pulse Resp B/P (MAP) Pulse Ox O2 Delivery O2 Flow Rate FiO2 12/02/24 12:54 101/64 12/02/24 12:45 98.4 108 28 100 209.1 12/02/24 12:00 Mechanical Ventilator+ 28 30 30 Intake and Output 12/01/24 12/02/24 19:00 07:00 Intake Total 2148.5 ml 1847.0 ml Output Total 1300 ml Balance 2148.5 ml 547.0 ml Intake Oral 60 ml IV Total 2148.5 ml 1787.0 ml Tube Feeding 0 ml Output Urine Total 1300 ml Physical Exam Gen: nad, intubated, appears older than stated age heent: + ETT lungs: cta anteriorly cvs: no rub abd: soft, bowel sounds audible ext: no edema skin: no rash neuro: Sedated Labs/Diagnostic Data Labs/Diagnostic Data Laboratory Tests Test 12/02/24 13:29 12/02/24 11:53 12/02/24 10:34 12/02/24 08:55 Range/Units POC Glucose 125 H 109 H 118 H 119 H 70-106 mg/dl Test 12/02/24 08:47 12/02/24 07:29 12/02/24 06:30 12/02/24 06:02 Range/Units Sodium Level 143 136-145 mmol/L Potassium Level 2.8 L 3.5-5.1 mmol/L Chloride Level 105 98-107 mmol/L Carbon Dioxide Level 25 20-31 mmol/L Anion Gap 13 5-15 Blood Urea Nitrogen 23 9-23 mg/dL Creatinine 1.34 H 0.700-1.30 mg/dL Glomerular Filtration Rate Calc 67 >90 mL/min BUN/Creatinine Ratio 17.2 10.0-20.0 Serum Glucose 115 H 74-106 mg/dL Calcium Level 8.6 L 8.7-10.4 mg/dL Lipase 151 H 12-53 U/L POC Glucose 127 H 139 H 70-106 mg/dl Blood Gas Specimen Type Arterial Blood Gas Sample Site Right radial Blood Gas Patient Temperature 37.0 Arterial Blood Date Drawn [id number] Arterial Blood pH 7.486 H 7.350-7.450 Arterial Blood Partial Pressure CO2 32.2 L 35.0-48.0 mmHg Arterial Blood Partial Pressure O2 93.1 83.0-108.0 mmHg Arterial Blood HCO3 23.8 21.0-28.0 mmol/L Arterial Blood Oxygen Saturation 97.1 94.0-98.0 % Arterial Blood Base Excess 0.9 -2.0-3.0 mmol/L Arterial Blood Oxyhemoglobin 96.3 94.0-98.0 % Arterial Blood Carboxyhemoglobin 0.3 L 0.5-1.5 % Arterial Blood Methemoglobin 0.5 0.0-1.5 % Eligio Test Modified Blood Gas Total Hemoglobin 11.60 L 13.5-17.5 g/dL Blood Gas Set Respiration Rate 28.0 Blood Gas Modality Vent - ac FiO2 % 30.0 Blood Gas Tidal Volume 500.0 Blood Gas PEEP or CPAP 5.0 Test 12/02/24 04:41 12/02/24 03:12 12/02/24 03:00 12/02/24 01:31 Range/Units POC Glucose 145 H 193 H 278 H 70-106 mg/dl White Blood Count 14.6 #H 4.4-10.8 10^3/uL Red Blood Count 3.68 L 4.5-5.90 10^6/uL Hemoglobin 11.1 L 13.5-17.5 g/dL Hematocrit 31.8 #L 41.0-53.0 % Mean Corpuscular Volume 86.4 # 80.0-100.0 fL Mean Corpuscular Hemoglobin 30.3 28.0-32.0 pg Mean Corpuscular Hemoglobin Concent 35.0 32.0-36.0 g/dL Red Cell Distribution Width 13.2 11.8-14.3 % Platelet Count 277 140-450 10^3/uL Mean Platelet Volume 8.1 6.9-10.8 fL Neutrophils (%) (Auto) 83.6 H 37.0-80.0 % Lymphocytes (%) (Auto) 7.3 L 10.0-50.0 % Monocytes (%) (Auto) 8.7 0.0-12.0 % Eosinophils (%) (Auto) 0.2 0.0-7.0 % Basophils (%) (Auto) 0.2 0.0-2.0 % Neutrophils # (Auto) 12.2 H 1.6-8.6 10 ^3/uL Lymphocytes # (Auto) 1.1 0.4-5.4 10 ^3/uL Monocytes # (Auto) 1.3 0-1.3 10 ^3/uL Eosinophils # (Auto) 0 0-0.8 10 ^3/uL Basophils # (Auto) 0 0-0.2 10 ^3/uL Nucleated Red Blood Cells 0.0 % Sodium Level 140 136-145 mmol/L Potassium Level 2.9 L 3.5-5.1 mmol/L Chloride Level 102 98-107 mmol/L Carbon Dioxide Level 25 20-31 mmol/L Anion Gap 13 5-15 Blood Urea Nitrogen 27 H 9-23 mg/dL Creatinine 1.59 H 0.700-1.30 mg/dL Glomerular Filtration Rate Calc 55 >90 mL/min BUN/Creatinine Ratio 17.0 10.0-20.0 Serum Glucose 170 #H 74-106 mg/dL Calcium Level 8.9 8.7-10.4 mg/dL Phosphorus Level 1.4 L 2.4-5.1 mg/dL Magnesium Level 1.2 L 1.6-2.6 mg/dL Total Bilirubin 0.2 0.2-1.0 mg/dL Aspartate Amino Transferase (AST) 36 13-40 U/L Alanine Aminotransferase (ALT) 18 7-40 U/L Alkaline Phosphatase 119 H 46-116 U/L Total Protein 5.7 5.7-8.2 g/dL Albumin 3.1 L 3.2-4.8 g/dL Test 12/02/24 00:50 12/02/24 00:08 12/01/24 22:31 12/01/24 22:00 Range/Units Sodium Level 137 # 131 L 136-145 mmol/L Potassium Level 3.3 L 4.0 3.5-5.1 mmol/L Chloride Level 100 94 L 98-107 mmol/L Carbon Dioxide Level 22 16 L 20-31 mmol/L Anion Gap 15 21 H 5-15 Blood Urea Nitrogen 29 H 29 H 9-23 mg/dL Creatinine 1.75 H 1.98 H 0.700-1.30 mg/dL Glomerular Filtration Rate Calc 49 42 >90 mL/min BUN/Creatinine Ratio 16.6 14.6 10.0-20.0 Serum Glucose 312 #H 500 #*H 74-106 mg/dL Calcium Level 8.8 8.8 8.7-10.4 mg/dL POC Glucose 377 H 540 *H 70-106 mg/dl Test 12/01/24 21:07 12/01/24 19:39 12/01/24 19:24 12/01/24 18:12 Range/Units POC Glucose 562 *H > 600 *H > 600 *H 70-106 mg/dl Lactic Acid Level 1.5 0.4-2.0 mmol/L Test 12/01/24 17:06 12/01/24 16:50 12/01/24 16:33 12/01/24 15:00 Range/Units White Blood Count 23.8 H 4.4-10.8 10^3/uL Red Blood Count 3.83 L 4.5-5.90 10^6/uL Hemoglobin 11.4 L 13.5-17.5 g/dL Hematocrit 37.3 #L 41.0-53.0 % Mean Corpuscular Volume 97.4 # 80.0-100.0 fL Mean Corpuscular Hemoglobin 29.8 28.0-32.0 pg Mean Corpuscular Hemoglobin Concent 30.6 L 32.0-36.0 g/dL Red Cell Distribution Width 13.6 11.8-14.3 % Platelet Count 327 140-450 10^3/uL Mean Platelet Volume 8.8 6.9-10.8 fL Neutrophils (%) (Auto) 37.0-80.0 % Lymphocytes (%) (Auto) 10.0-50.0 % Monocytes (%) (Auto) 0.0-12.0 % Basophils (%) (Auto) 0.0-2.0 % Neutrophils # (Auto) 1.6-8.6 10 ^3/uL Lymphocytes # (Auto) 0.4-5.4 10 ^3/uL Monocytes # (Auto) 0-1.3 10 ^3/uL Differential Total Cells Counted 100.0 100 Neutrophils % (Manual) 68 37.0-80.0 Band Neutrophils % (Manual) 2 Lymphocytes % (Manual) 18 10.0-50.0 Monocytes % (Manual) 10 0-12 Eosinophils % (Manual) 0 0-7 Basophils % (Manual) 0 0.0-2.0 Metamyelocytes % (manual) 1 Myelocytes % (Manual) 1 Promyelocytes % (Manual) 0 Blast Cells % (Manual) 0 Reactive Lymphocytes 0 Platelet Estimate Adequate Erythrocyte Sedimentation Rate 7 0-20 mm/hr Sodium Level 129 #L 136-145 mmol/L Potassium Level 4.7 3.5-5.1 mmol/L Chloride Level 88 L 98-107 mmol/L Carbon Dioxide Level < 10 *L 20-31 mmol/L Anion Gap 31.88266 H 5-15 Blood Urea Nitrogen 32 H 9-23 mg/dL Creatinine 2.35 H 0.700-1.30 mg/dL Glomerular Filtration Rate Calc 34 >90 mL/min BUN/Creatinine Ratio 13.6 10.0-20.0 Serum Glucose 854 #*H 74-106 mg/dL Lactic Acid Level 2.4 *H 0.4-2.0 mmol/L Calcium Level 8.9 8.7-10.4 mg/dL Phosphorus Level 10.5 H 2.4-5.1 mg/dL Magnesium Level 1.8 1.6-2.6 mg/dL Ammonia 56 H 11-32 umol/L C-Reactive Protein High Sensitivity 2.01 H <1.0 mg/dL Beta-Hydroxybutyric Acid > 4.500 H < 0.4 mmol/L Blood Gas Specimen Type Arterial Blood Gas Sample Site Right radial Blood Gas Patient Temperature 37.0 Arterial Blood Date Drawn [id number] Arterial Blood pH 7.024 *L 7.350-7.450 Arterial Blood Partial Pressure CO2 27.9 L 35.0-48.0 mmHg Arterial Blood Partial Pressure O2 112.2 H 83.0-108.0 mmHg Arterial Blood HCO3 7.1 L 21.0-28.0 mmol/L Arterial Blood Oxygen Saturation 96.8 94.0-98.0 % Arterial Blood Base Excess -22.5 L -2.0-3.0 mmol/L Arterial Blood Oxyhemoglobin 96.1 94.0-98.0 % Arterial Blood Carboxyhemoglobin 0.1 L 0.5-1.5 % Arterial Blood Methemoglobin 0.6 0.0-1.5 % Eligio Test Modified Blood Gas Total Hemoglobin 12.50 L 13.5-17.5 g/dL Blood Gas Set Respiration Rate 28.0 Blood Gas Modality Vent - ac FiO2 % 40.0 Blood Gas Tidal Volume 500.0 Blood Gas PEEP or CPAP 5.0 Blood Gas Critical Value Read Back yes Blood Gas Notified Whom Blood Gas Notified Time [id number] Blood Gas Notified By international bank manager dean POC Glucose > 600 *H > 600 *H 70-106 mg/dl Test 12/01/24 14:22 12/01/24 13:49 12/01/24 13:23 12/01/24 12:25 Range/Units Blood Gas Specimen Type Arterial Arterial Blood Gas Sample Site Right radial Left radial Blood Gas Patient Temperature 37.0 37.0 Arterial Blood Date Drawn [id number] Arterial Blood pH 6.755 *L 6.954 *L 7.350-7.450 Arterial Blood Partial Pressure CO2 30.2 L < 14.1 *L 35.0-48.0 mmHg Arterial Blood Partial Pressure O2 425.0 *H 140.4 H 83.0-108.0 mmHg Arterial Blood HCO3 4.1 L 21.0-28.0 mmol/L Arterial Blood Oxygen Saturation 99.5 H 97.5 94.0-98.0 % Arterial Blood Base Excess -30.8 L -2.0-3.0 mmol/L Arterial Blood Oxyhemoglobin 98.8 H 96.3 94.0-98.0 % Arterial Blood Carboxyhemoglobin 0.0 L 0.4 L 0.5-1.5 % Arterial Blood Methemoglobin 0.7 0.8 0.0-1.5 % Eligio Test Modified Yes Blood Gas Total Hemoglobin 13.10 L 13.50 13.5-17.5 g/dL Blood Gas Set Respiration Rate 28.0 Blood Gas Modality Vent - ac Room air FiO2 % 100.0 21.0 Blood Gas Tidal Volume 500.0 Blood Gas PEEP or CPAP 5.0 Blood Gas Critical Value Read Back yes yes Blood Gas Notified Whom dr.p.tummala pimentel Blood Gas Notified Time [id number] Blood Gas Notified By international bank manager dean international bank manager dean POC Glucose > 600 *H 70-106 mg/dl White Blood Count 28.0 H 4.4-10.8 10^3/uL Red Blood Count 4.19 L 4.5-5.90 10^6/uL Hemoglobin 12.8 L 13.5-17.5 g/dL Hematocrit 45.4 41.0-53.0 % Mean Corpuscular Volume 108.2 H 80.0-100.0 fL Mean Corpuscular Hemoglobin 30.5 28.0-32.0 pg Mean Corpuscular Hemoglobin Concent 28.2 L 32.0-36.0 g/dL Red Cell Distribution Width 14.3 11.8-14.3 % Platelet Count 385 140-450 10^3/uL Mean Platelet Volume 9.2 6.9-10.8 fL Neutrophils (%) (Auto) 37.0-80.0 % Lymphocytes (%) (Auto) 10.0-50.0 % Monocytes (%) (Auto) 0.0-12.0 % Basophils (%) (Auto) 0.0-2.0 % Neutrophils # (Auto) 1.6-8.6 10 ^3/uL Lymphocytes # (Auto) 0.4-5.4 10 ^3/uL Monocytes # (Auto) 0-1.3 10 ^3/uL Differential Total Cells Counted 100.0 100 Neutrophils % (Manual) 66 37.0-80.0 Band Neutrophils % (Manual) 12 Lymphocytes % (Manual) 12 10.0-50.0 Monocytes % (Manual) 8 0-12 Eosinophils % (Manual) 0 0-7 Basophils % (Manual) 0 0.0-2.0 Metamyelocytes % (manual) 2 Myelocytes % (Manual) 0 Promyelocytes % (Manual) 0 Blast Cells % (Manual) 0 Reactive Lymphocytes 0 Platelet Estimate Adequate Macrocytosis Moderate Sodium Level 121 L 136-145 mmol/L Potassium Level 5.4 H 3.5-5.1 mmol/L Chloride Level 83 L 98-107 mmol/L Carbon Dioxide Level < 10 *L 20-31 mmol/L Anion Gap 28.95841 H 5-15 Blood Urea Nitrogen 24 H 9-23 mg/dL Creatinine 2.36 H 0.700-1.30 mg/dL Glomerular Filtration Rate Calc 34 >90 mL/min BUN/Creatinine Ratio 10.2 10.0-20.0 Serum Glucose 1106 *H 74-106 mg/dL Serum Osmolality 355 H 278-298 mOsm/kg Calcium Level 10.0 8.7-10.4 mg/dL Phosphorus Level 13.7 H 2.4-5.1 mg/dL Magnesium Level 2.3 1.6-2.6 mg/dL Beta-Hydroxybutyric Acid > 4.500 H < 0.4 mmol/L Test 12/01/24 00:00 Range/Units Urine Color Light-yellow Yellow Urine Clarity Clear Clear Urine pH 5.0 5.0-9.0 Urine Specific [place] 1.017 1.001-1.035 Urine Protein Trace H Negative Urine Ketones 2+ H Negative Urine Blood Trace H Negative /uL Urine Nitrite Negative Negative Urine Bilirubin Negative Negative Urine Urobilinogen Normal Negative mg/dL Urine Leukocyte Esterase Negative Negative /uL Urine RBC 1 0 - 3 /hpf Urine Microscopic WBC 3 0-3 /HPF Urine Squamous Epithelial Cells None seen <5 /hpf Urine Bacteria None seen None Seen /hpf Urine Mucus Few None Seen Urine Glucose 4+ H Normal mg/dL Assessment IMP: 1) Hemodynamically mediated REYNALDO/VMN - prerenal etiology 2) CKD ? Baseline serum creatinine unknown to this financial writer 3) anion gap metabolic acidosis - diabetic ketosis - improved 4) severe hyperphosphatemia 5) acute hypoxemic respiratory failure REC: - agree with current management of diabetic ketoacidosis. - we will continue with IV fluids to maintain even to slightly positive fluid balance. - plan to continue to monitor with serial chemistry panels - general recommendations to avoid NSAIDs, Marcelo, ARB during time course of REYNALDO recovery - we will continue to follow closely with you. Thank you for the consultation. Plan discussed with: Other MARIOLA RODRIGUEZ MD Dec 02, 2024 14:00
[2024-12-02 14:51] LABS: Urine Protein, UAD Negative (Negative)
[2024-12-02] MEDS ORDERED: DEXTROSE (50%) 50ML SYRG IV PRN (15:45)
[2024-12-02] MEDS: InsuLIN REG 1unit/0.01ml Soln (100units/ml) SC SCH (18:00)
[2024-12-02] MEDS: ACCU-CHEK COMFORT CURVE STRIP VI SCH (18:09)
[2024-12-02 22:41] LABS: Sodium 145 mmol/L (136-145)
[2024-12-02 22:42] LABS: Anion Gap 14 (5-15); Carbon Dioxide 22 mmol/L (20-31)
[2024-12-02 22:48] LABS: BUN/Creatinine Ratio 16.7 (10.0-20.0); Blood Urea Nitrogen 17 mg/dL (9-23); Magnesium 1.9 mg/dL (1.6-2.6)
[2024-12-02 22:51] LABS: Calcium 8.3 mg/dL (8.7-10.4); Chloride 109 mmol/L (98-107); Glucose 248 mg/dL (74-106); Potassium 2.9 mmol/L (3.5-5.1)
[2024-12-02] MEDS: LACTULOSE 20Gm/30ML SOLN GT SCH (23:24)
[2024-12-03] VITALS (98 sets, daily range): BP systolic 90–146; BP diastolic 55–91; PULSE 95–128; RESP 16–31; TEMP 98.8–99.9; O2SAT 93–100
[2024-12-03] MEDS: POTASSIUM EFFERVESENT TAB 25 MEQ GT ONE (00:13)
[2024-12-03] MEDS: MAGNESIUM SULFATE 1GM/100ML 100 ML IV ONE (00:13)
[2024-12-03] MEDS: POTASSIUM CHL 20MEQ/100ML 100 ML IV SCH (00:14)
[2024-12-03] MEDS: LORazepam 2MG/ML-1ML VIAL IV PRN (03:43)
--- NOTE | 2024-12-03 05:37 | DVH ---
CHEST RADIOGRAPH Indication: fu Technique: Single frontal view of the chest was obtained COMPARISON: XY CHEST PORTABLE on DOS: 12/02/24, XY CHEST PORTABLE on DOS: 12/01/24, XY CHEST PORTABLE o n DOS: 12/20/23, XY CHEST TWO VIEWS ROUTINE on DOS: 12/13/23, XY CHEST XRAY 1 VIEW on DOS: 09/26/23 FINDINGS: Lines and Tubes: Unchanged. Lungs: Clear Pleura: Stable small left pleural effusion. No pneumothorax. Cardiomediastinal contours: Unremarkable Bones: Unremarkable IMPRESSION: 1. Stable small left pleural effusion. 2. Lines and tubes unchanged.
[2024-12-03 06:19] LABS: Hematocrit 30.6 % (41.0-53.0); Hemoglobin 10.7 g/dL (13.5-17.5); Mean Corpuscular Hemoglobin 30.7 pg (28.0-32.0); Mean Corpuscular Volume 88.1 fL (80.0-100.0); Nucleated Red Blood Cells % 0.0 %
[2024-12-03 06:42] LABS: Alanine Aminotransferase 20 U/L (7-40); Alkaline Phosphatase 112 U/L (46-116); Anion Gap 7 (5-15); BUN/Creatinine Ratio 14.4 (10.0-20.0); Blood Urea Nitrogen 14 mg/dL (9-23); Carbon Dioxide 26 mmol/L (20-31); Magnesium 1.9 mg/dL (1.6-2.6); Potassium 3.8 mmol/L (3.5-5.1); Sodium 142 mmol/L (136-145)
[2024-12-03 07:03] LABS: Albumin 3.2 g/dL (3.2-4.8); Bilirubin, Total 0.2 mg/dL (0.2-1.0); Calcium 8.4 mg/dL (8.7-10.4); Chloride 109 mmol/L (98-107); Glucose 212 mg/dL (74-106); Total Protein 5.7 g/dL (5.7-8.2)
[2024-12-03 07:44] LABS: Base Excess -1.1 mmol/L (-2.0-3.0)
[2024-12-03] MEDS ORDERED: levETIRAcetam 500 mg/100ml 100 ML IV SCH (10:00)
[2024-12-03] MEDS: INSULIN LANTUS (GLARGINE) 1 /0.01ml (100units/ml) SC SCH (10:00)
[2024-12-03] MEDS: NOREPINEPHRINE 8 MG/250ML KIT 250 ML IV SCH (10:20)
[2024-12-03] MEDS: PROPOFOL 100 ML IV SCH (10:20)
[2024-12-03] MEDS: levETIRAcetam 500 MG TAB PO SCH (10:20)
[2024-12-03] MEDS: DEXTROSE (50%) 50ML SYRG IV ONE (11:01)
--- NOTE | 2024-12-03 11:15 | DVHPN2 ---
Progress Note - Dictate Date Seen: Dec 03, 2024 Medical Necessity Reason Pt with a Central, PICC or Fol: Yes The following are medically ne: [place] Catheter Subjective Remains intubated and sedated vital signs Vital Sign Date Time Temp Pulse Resp B/P (MAP) Pulse Ox O2 Delivery O2 Flow Rate FiO2 12/03/24 10:30 100 Mechanical Ventilator+ 30 30 12/03/24 10:30 110 12/03/24 10:30 99.7 20 108/74 (85) 211.5 12/03/24 06:00 28 Total Intake and Output 12/02/24 12/02/24 12/03/24 15:00 23:00 07:00 Intake Total 1837.75 ml 350 ml 585.0 ml Output Total 1650 ml 1750 ml Balance 1837.75 ml -1300 ml -1165.0 ml medications Current Medications Medications Dose Ordered Sig/Misa Route Start Time Stop Time Status Last Admin Dose Admin Midazolam HCl 50 ml @ 1 mls/hr Q24H IV 12/01/24 12:45 12/03/24 11:07 15 MLS/HR Dextrose 50 ml UD PRN IV 12/01/24 13:30 Cancel Insulin Glargine 15 units DAILY SC 12/02/24 10:00 Cancel Fentanyl Citrate 250 ml @ 2.5 mls/hr Q24H IV 12/01/24 16:30 12/03/24 11:09 30 MLS/HR Dextrose 50 ml UD PRN IV 12/01/24 16:45 Cancel Ondansetron HCl 4 mg Q4HP PRN IV 12/01/24 16:45 Acetaminophen 650 mg Q6HP PRN PO 12/01/24 16:45 Nitroglycerin 0.4 mg Q5MINP PRN SL 12/01/24 16:45 Morphine Sulfate 2 mg Q30M PRN IV 12/01/24 16:45 Ceftriaxone Sodium 50 ml @ 100 mls/hr DAILY@09 IV 12/01/24 16:45 12/03/24 08:05 100 MLS/HR Azithromycin 250 ml @ 125 mls/hr DAILY IV 12/02/24 10:00 12/03/24 10:03 125 MLS/HR Famotidine 20 mg DAILY IV 12/02/24 10:00 12/03/24 10:03 20 MG Albuterol 2.5 mg Q4HR NEB 12/01/24 18:00 12/03/24 10:08 2.5 MG Ipratropium [place] 0.5 mg Q4HR NEB 12/01/24 18:00 12/03/24 10:08 0.5 MG Tamsulosin HCl 0.4 mg DAILY PO 12/02/24 10:00 12/02/24 10:15 0.4 MG Albuterol 2.5 mg Q4HPRN PRN NEB 12/01/24 18:00 [place]pratropium [place] 0.5 mg Q4HPRN PRN NEB 12/01/24 18:00 Diagnostic Test (Pha) 1 strip Q6HR 12/02/24 18:00 12/03/24 05:14 1 STRIP Insulin Human Regular Q6HR SC 12/02/24 18:00 12/03/24 05:14 9 UNITS Dextrose 50 ml UD PRN IV 12/02/24 15:45 Insulin Glargine 15 units DAILY@1000 SC 12/03/24 10:00 Lactulose 30 ml Q6HR GT 12/03/24 00:00 12/03/24 10:20 30 ML Lorazepam 1 mg Q5MINP PRN IV 12/03/24 01:45 12/03/24 03:43 1 MG Norepinephrine Bitartrate 250 ml @ 3.75 mls/hr Q24H IV 12/03/24 09:30 Propofol 100 ml @ 2.625 mls/ hr Q24H IV 12/03/24 09:30 Enteral Nutritional Formula 1,000 ml 40ML/HR GT 12/03/24 09:30 Levetiracetam 100 ml @ 400 mls/hr BID IV 12/03/24 10:00 UNV Levetiracetam 750 mg BID PO 12/03/24 10:00 12/03/24 10:20 750 MG objective Gen: nad, intubated lungs: cta anteriorly cvs: no rub ext: no edema laboratory and microbiology Laboratory Tests 12/03/24 05:40 Test 12/03/24 05:40 Range/Units Serum Glucose 212 H 74-106 mg/dL Assessment/Plan IMP: 1) Hemodynamically mediated REYNALDO/VMN - prerenal etiology - resolved 2) CKD ? Baseline serum creatinine unknown to this specification writer 3) anion gap metabolic acidosis - diabetic ketosis - improved 4) severe hyperphosphatemia 5) acute hypoxemic respiratory failure REC: - metabolic derangements resolved - DKA resolved - no new recommendations from Nephrology perspective, I will sign off his case. Please reconsult as needed. Thank you. Dietary Evaluation Review Comments: 1) Initiate thiamin, folic acid, and MVI supplementation d/t recent ETOH abuse 2) If patient remains NPO > 7 days, consider EN/TPN to meet at least 75% of estimated daily needs 3) If GI is preferred, initiate Glucerna 1.2 @ 60 mL/hr goal rate as tolerated. Flush with 150 mL Q6H. TF regimen will provide 1728 kcals, 86g Pro, and 1759 mL free H2O (including flushes) per 24 hrs. Goal rate will meet ~87% estimated daily energy needs and ~72% estimated daily protein needs 4) Advance to 60g CCHO cardiac diet when medically feasible, pending ST approval 5) Collect HbA1c 6) Refer to outpatient RD/[facility] for diabetes education 7) Follow-up with cardiology, pulmonology, and psychiatry 8) Follow-up with social media community manager r/t ETOH abuse 9) Continue to monitor I&O, labs, and skin integrity Expected Outcomes/Goals: 1) patient to receive nutritional support within 7 days of NPO status 2) labs and GI symptoms to improve 3) diet to advance 4) follow-up in 2-3 days Plan discussed with: MARIOLA Razo MD Dec 03, 2024 11:15
[2024-12-03 11:56] LABS: Base Excess 0.3 mmol/L (-2.0-3.0)
[2024-12-03] MEDS: Glucerna 1.2 Cal 1Liter BOTTLE GT SCH (13:41)
--- NOTE | 2024-12-03 14:42 | DVHPN2 ---
Subjective on vent Reviewed: Care Plan, H&P, Labs, Medications, Previous Orders, Radiology Changes from previous H/P or p: No Changes Objective Vitals Vital Signs Date Time Temp Pulse Resp B/P (MAP) Pulse Ox O2 Delivery O2 Flow Rate FiO2 12/03/24 14:29 20 100 Mechanical Ventilator+ 30 30 12/03/24 14:29 108 12/03/24 14:00 108/72 (84) 12/03/24 10:30 99.7 211.5 12/03/24 06:00 28 Intake/Output Intake and Output 12/03/24 07:00 Intake Total 2772.75 ml Output Total 3400 ml Balance -627.25 ml Intake Oral 340 ml IV Total 2432.75 ml Output Urine Total 3400 ml Stool Total 0 ml General Appearance: Other (vent) HEENT: Atraumatic, PERRLA Lungs: Other (few crackles) Cardiovascular: Other (border tachy) Abdomen: Normal bowel sounds Medications Current Medications Medications Dose Ordered Sig/Misa Route Start Time Stop Time Status Last Admin Dose Admin Midazolam HCl 50 ml @ 1 mls/hr Q24H IV 12/01/24 12:45 12/03/24 11:07 15 MLS/HR Dextrose 50 ml UD PRN IV 12/01/24 13:30 Cancel Insulin Glargine 15 units DAILY SC 12/02/24 10:00 Cancel Fentanyl Citrate 250 ml @ 2.5 mls/hr Q24H IV 12/01/24 16:30 12/03/24 11:09 30 MLS/HR Dextrose 50 ml UD PRN IV 12/01/24 16:45 Cancel Ondansetron HCl 4 mg Q4HP PRN IV 12/01/24 16:45 Acetaminophen 650 mg Q6HP PRN PO 12/01/24 16:45 Nitroglycerin 0.4 mg Q5MINP PRN SL 12/01/24 16:45 Morphine Sulfate 2 mg Q30M PRN IV 12/01/24 16:45 Ceftriaxone Sodium 50 ml @ 100 mls/hr DAILY@09 IV 12/01/24 16:45 12/03/24 08:05 100 MLS/HR Azithromycin 250 ml @ 125 mls/hr DAILY IV 12/02/24 10:00 12/03/24 10:03 125 MLS/HR Famotidine 20 mg DAILY IV 12/02/24 10:00 12/03/24 10:03 20 MG Albuterol 2.5 mg Q4HR NEB 12/01/24 18:00 12/03/24 14:00 2.5 MG Ipratropium Mullen 0.5 mg Q4HR NEB 12/01/24 18:00 12/03/24 14:00 0.5 MG Tamsulosin HCl 0.4 mg DAILY PO 12/02/24 10:00 12/02/24 10:15 0.4 MG Albuterol 2.5 mg Q4HPRN PRN NEB 12/01/24 18:00 Ipratropium Mullen 0.5 mg Q4HPRN PRN NEB 12/01/24 18:00 Diagnostic Test (Pha) 1 strip Q6HR 12/02/24 18:00 12/03/24 12:03 1 STRIP Insulin Human Regular Q6HR SC 12/02/24 18:00 12/03/24 05:14 9 UNITS Dextrose 50 ml UD PRN IV 12/02/24 15:45 Insulin Glargine 15 units DAILY@1000 WV 12/03/24 10:00 Lactulose 30 ml Q6HR GT 12/03/24 00:00 12/03/24 10:20 30 ML Lorazepam 1 mg Q5MINP PRN IV 12/03/24 01:45 12/03/24 03:43 1 MG Norepinephrine Bitartrate 250 ml @ 3.75 mls/hr Q24H IV 12/03/24 09:30 Propofol 100 ml @ 2.625 mls/ hr Q24H IV 12/03/24 09:30 Enteral Nutritional Formula 1,000 ml 40ML/HR GT 12/03/24 09:30 12/03/24 13:41 1,000 ML Levetiracetam 100 ml @ 400 mls/hr BID IV 12/03/24 10:00 UNV Levetiracetam 750 mg BID PO 12/03/24 10:00 12/03/24 10:20 750 MG Laboratory Results Laboratory Tests 12/03/24 05:40 Chemistry Test 12/02/24 21:46 12/03/24 05:40 Calcium Level 8.3 mg/dL (8.7-10.4) L 8.4 mg/dL (8.7-10.4) L Magnesium Level 1.9 mg/dL (1.6-2.6) 1.9 mg/dL (1.6-2.6) Albumin 3.2 g/dL (3.2-4.8) Phosphorus Level 0.3 mg/dL (2.4-5.1) L Total Protein 5.7 g/dL (5.7-8.2) LFT Test 12/03/24 05:40 Alanine Aminotransferase (ALT) 20 U/L (7-40) Alkaline Phosphatase 112 U/L (46-116) Aspartate Amino Transferase (AST) 94 U/L (13-40) H Total Bilirubin 0.2 mg/dL (0.2-1.0) Urinalysis Test 12/01/24 00:00 12/02/24 14:31 Urine Mucus Few (None Seen) Urine Color Colorless (Yellow) Urine Clarity Turbid (Clear) H Urine pH 6.0 (5.0-9.0) Urine Specific [place] 1.011 (1.001-1.035) Urine Protein Negative (Negative) Urine Ketones Trace (Negative) Urine Blood 2+ /uL (Negative) H Urine Nitrite Negative (Negative) Urine Bilirubin Negative (Negative) Urine Urobilinogen Normal mg/dL (Negative) Urine Leukocyte Esterase 3+ /uL (Negative) Urine RBC 14 /hpf (0 - 3) Urine Microscopic WBC 30 /HPF (0-3) H Urine Squamous Epithelial Cells Few /hpf (<5) Urine Bacteria Few /hpf (None Seen) H Urine Glucose Normal mg/dL (Normal) Blood Gas Results Test 12/03/24 06:42 12/03/24 11:45 Arterial Blood pH 7.501 (7.350-7.450) 7.465 (7.350-7.450) FiO2 % 30.0 30.0 Microbiology Microbiology Date/Time Source Procedure Growth Status 12/02/24 14:31 Urine - [place] Urine Culture - Preliminary Resulted 12/01/24 21:06 Nose MRSA Screen - Final Complete 12/01/24 17:06 Blood Blood Culture - Preliminary NO GROWTH AFTER 24 HOURS OF INCUBATION. Resulted 12/01/24 00:00 Sputum Endotracheal Wash Gram Stain - Final Resulted 12/01/24 00:00 Sputum Endotracheal Wash Respiratory Culture - Preliminary Resulted Assessment/Plan Assessment/Plan DKA Metabolic encephalopathy/acute Acute hypoxemic respiratory failure Pneumonia History of subdural hematoma and intracerebral bleed Status post INFECTION CONTROL COORDINATOR shunt Alcoholism Plan: Ventilator support. Repeat labs. Chest x-ray. ABGs. Continue ventilator support. Monitor vital signs and oxygenation. Blood sugar and insulin drip. IV antibiotics. CBC CMP. Lipase. ABGs. Chest x-ray. Reduce the AC to 20 due to the respiratory alkalosis. Resume Keppra IV. Recheck ammonia. Nutrition. Replace potassium. Total critical care time 40 minutes Plan discussed with: Other (Nursing) My Orders Orders - CHERIE MULLER MD Procedure Category Date Status Time Glucose Blood PHA 12/02/24 In Process (Accu-Chek Comfort 18:00 Insulin R (Human) PHA 12/02/24 In Process (Insulin R) 18:00 Dextrose 50% Syringe PHA 12/02/24 In Process 15:45 Insulin Lantus PHA 12/03/24 In Process (Glargine) (Lantus) 10:00 * Senior Master Scheduler CONS 12/02/24 Transmitted Consult Norepinephrine 8 PHA 12/03/24 In Process Mg/250ml Kit 09:30 Propofol (Diprivan) PHA 12/03/24 In Process 09:30 Nutritional PHA 12/03/24 In Process Supplements (Glucerna 09:30 Ventilator Orders RT 12/03/24 Transmitted 09:21 Abg W/ Co-Ox RT 12/03/24 Logged 12:00 Ammonia LAB 12/04/24 Verified 04:00 Complete Blood Count LAB 12/04/24 Verified 04:00 Comprehensive LAB 12/04/24 Verified Metabolic Panel 04:00 Magnesium LAB 12/04/24 Verified 04:00 Chest Portable XY 12/04/24 Logged 06:00 Abg W/ Co-Ox RT 12/04/24 Logged 06:00 Levetiracetam Tablet PHA 12/03/24 In Process (Keppra Tablet) 10:00 Date of Service: Dec 03, 2024 Billing Provider: CHERIE MULLER MD Common Visit Codes: [id number] CARE 30-74 MIN CHERIE MULLER MD Dec 03, 2024 14:42
--- NOTE | 2024-12-03 22:58 | DVHINCON2 ---
Date Seen: Dec 02, 2024 Referring Physician SHEILA Rodriguez Reason for Consultation Acute hypoxic respiratory failure requiring mechanical ventilator and pneumonia. History of Present Illness A 44-year-old male with past medical history of asthma, CVA, diabetes mellitus type 1, hypertension, seizures, and schizophrenia who presented to the ED on 12/01/24 with c/o ALOC x1 day. Per EMS reports patient had symptoms of nausea, vomiting and diarrhea over the past 3 days. Also noted was the patient's blood sugar was elevated at 500 on the field. Patient is on insulin for his diabetes. Per father, pt has not been checking his blood sugar or taking his pills. He also reports that the patient drinks heavily; was becoming delusional and was seeing things on the floor. Father noted the patient was clenching his fists and tightening them up, also mumbling words that were unclear. He was also not eating for 3 days and paramedics were called for assistance. Patient was admitted for further care. Pulmonary consultation is requested for evaluation and management of acute hypoxic respiratory failure requiring mechanical ventilator. Review of Systems: Unable to obtain d/t intubated status Past Medical History: Asthma, CVA, diabetes mellitus type 1, hypertension, seizures, schizophrenia, anxiety, depression, bipolar disorder, vitamin-D deficiency, ICH and SDH. 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 Allergies: Watermelon flavoring agent. Family History: No family history of premature CAD. No family history of lung disorders. Social History: Nonsmoker. Heavy alcohol use. Positive marijuana use. Family History: Asthma G8 MOTHER Allergies: Coded Allergies: Watermelon Flavoring Agent (non-scr (Verified Allergy, Unknown, 12/30/22) Home Meds Reported Medications Quetiapine Fumarate (Quetiapine Fumarate ER) 400 Mg Tab, 1 TAB PO DAILY for 90 Days, #90 12/21/23 Aripiprazole (Abilify) 20 Mg Tab, 15 MG PO DAILY for 30 Days, #30 12/21/23 Gabapentin (Gabapentin) 300 Mg Cap, 1 CAP PO TID for 30 Days, #90 12/21/23 Albuterol Sulfate (Albuterol Sulfate Hfa) 108 Mcg/Act Aer, 1 PUFF INH Q4HR for 34 Days, #18 12/21/23 Tamsulosin HCl (Tamsulosin Hydrochloride) 0.4 Mg Cap, 1 CAP PO DAILY for 90 Days, #90 09/26/23 Hydroxyzine HCl (Hydroxyzine Hydrochloride) 25 Mg Tab, 1 TAB PO BID for 30 Days, #60 09/26/23 Oxcarbazepine (Trileptal) 600 Mg Tab, 300 MG PO DAILY, TAB 09/26/23 Sertraline Hcl (Sertraline Hcl) 50 Mg Tab, 150 MG PO DAILY for 30 Days, MG 09/26/23 Divalproex Sodium (Divalproex Sodium) 500 Mg Tab, 500 MG PO BID, MG 09/26/23 Levetiracetam (KEPPRA TABLET) 500 Mg Tb, 750 MG PO BID, TAB 09/26/23 Insulin NPH (Human) (Isophane) (Humulin N) 100 Unit/Ml Inj, UNIT SC UD for 84 Days, #30 08/29/20 Cariprazine HCl (Vraylar) 6 Mg Cap, 6 MG PO QAM, CAP 08/29/20 Benztropine Mesylate (Benztropine Mesylate) 1 Mg Tab, 1.5 MG PO QAM, MG 08/29/20 Current Medications Current Medications Medications (Trade) Dose Ordered Sig/Misa Route PRN Reason Start Time Stop Time Status Last Admin Insulin Glargine (Lantus) 15 units DAILY@1000 SC 12/03/24 10:00 Lactulose 30 ml Q6HR GT 12/03/24 00:00 12/03/24 10:20 Potassium Chloride 100 ml @ 50 mls/hr Q2H IV 12/03/24 00:00 12/03/24 03:59 DC 12/03/24 01:51 Lorazepam (Ativan Inj) 1 mg Q5MINP PRN IV SEIZURES 12/03/24 01:45 12/03/24 03:43 Norepinephrine Bitartrate 250 ml @ 3.75 mls/hr Q24H IV 12/03/24 09:30 Propofol 100 ml @ 2.625 mls/ hr Q24H IV 12/03/24 09:30 Enteral Nutritional Formula (Glucerna 1.2 Cornelio) 1,000 ml 40ML/HR GT 12/03/24 09:30 12/03/24 13:41 Levetiracetam 100 ml @ 400 mls/hr BID IV 12/03/24 10:00 UNV Levetiracetam (Keppra Tablet) 750 mg BID PO 12/03/24 10:00 12/03/24 21:53 Vital Signs Vital Signs Date Time Temp Pulse Resp B/P (MAP) Pulse Ox O2 Delivery O2 Flow Rate FiO2 12/03/24 22:30 98.8 97 20 93/61 (72) 100 209.8 12/03/24 21:59 30 12/03/24 20:00 Mechanical Ventilator+ 12/03/24 06:00 28 Physical Exam Gen.: Patient lying in bed in medical ICU. Sedated, intubated on mechanical ventilator. Head: Normocephalic, atraumatic. Eyes: PERRLA. Ears: Normal external anatomy. Throat: Endotracheal tube and orogastric tube in place. Neck: Supple, trachea midline. Chest: Transmitted breath sounds bilaterally. Decreased air entry bilaterally. No wheezing. Bibasilar crackles. Cardiovascular: Positive S1, positive S2. Regular rate and rhythm. Abdomen: Positive bowel sounds in all 4 quadrants. Soft, nontender, nondistended. : [place]rell[place] in place. Normal external genitalia. Rectal: Deferred. Skin: Warm, dry. Intact. Extremities: 2+ radial pulses bilaterally. No lower extremity edema. Neuro: Sedated. Labs/Diagnostic Data Labs Test 12/03/24 17:37 12/03/24 11:45 12/03/24 05:40 12/02/24 14:31 Range/Units POC Glucose 272 H 70-106 mg/dl Blood Gas Specimen Type Arterial Blood Gas Sample Site Right radial Blood Gas Patient Temperature 37.0 Arterial Blood Date Drawn [id number] Arterial Blood pH 7.465 H 7.350-7.450 Arterial Blood Partial Pressure CO2 33.6 L 35.0-48.0 mmHg Arterial Blood Partial Pressure O2 86.6 83.0-108.0 mmHg Arterial Blood HCO3 23.6 21.0-28.0 mmol/L Arterial Blood Oxygen Saturation 96.1 94.0-98.0 % Arterial Blood Base Excess 0.3 -2.0-3.0 mmol/L Arterial Blood Oxyhemoglobin 95.6 94.0-98.0 % Arterial Blood Carboxyhemoglobin 0.2 L 0.5-1.5 % Arterial Blood Methemoglobin 0.3 0.0-1.5 % Eligio Test Modified Blood Gas Total Hemoglobin 11.30 L 13.5-17.5 g/dL Blood Gas Set Respiration Rate 20.0 Blood Gas Modality Vent - ac FiO2 % 30.0 Blood Gas Tidal Volume 500.0 Blood Gas PEEP or CPAP 5.0 White Blood Count 10.4 # 4.4-10.8 10^3/uL Red Blood Count 3.47 L 4.5-5.90 10^6/uL Hemoglobin 10.7 L 13.5-17.5 g/dL Hematocrit 30.6 L 41.0-53.0 % Mean Corpuscular Volume 88.1 80.0-100.0 fL Mean Corpuscular Hemoglobin 30.7 28.0-32.0 pg Mean Corpuscular Hemoglobin Concent 34.9 32.0-36.0 g/dL Red Cell Distribution Width 13.6 11.8-14.3 % Platelet Count 235 140-450 10^3/uL Mean Platelet Volume 8.3 6.9-10.8 fL Neutrophils (%) (Auto) 81.2 H 37.0-80.0 % Lymphocytes (%) (Auto) 11.6 10.0-50.0 % Monocytes (%) (Auto) 6.7 0.0-12.0 % Eosinophils (%) (Auto) 0.0 0.0-7.0 % Basophils (%) (Auto) 0.5 0.0-2.0 % Neutrophils # (Auto) 8.5 1.6-8.6 10 ^3/uL Lymphocytes # (Auto) 1.2 0.4-5.4 10 ^3/uL Monocytes # (Auto) 0.7 0-1.3 10 ^3/uL Eosinophils # (Auto) 0 0-0.8 10 ^3/uL Basophils # (Auto) 0.1 0-0.2 10 ^3/uL Nucleated Red Blood Cells 0.0 % Sodium Level 142 136-145 mmol/L Potassium Level 3.8 3.5-5.1 mmol/L Chloride Level 109 H 98-107 mmol/L Carbon Dioxide Level 26 20-31 mmol/L Anion Gap 7 5-15 Blood Urea Nitrogen 14 9-23 mg/dL Creatinine 0.97 0.700-1.30 mg/dL Glomerular Filtration Rate Calc 99 >90 mL/min BUN/Creatinine Ratio 14.4 10.0-20.0 Serum Glucose 212 H 74-106 mg/dL Calcium Level 8.4 L 8.7-10.4 mg/dL Phosphorus Level 0.3 L 2.4-5.1 mg/dL Magnesium Level 1.9 1.6-2.6 mg/dL Total Bilirubin 0.2 0.2-1.0 mg/dL Aspartate Amino Transferase (AST) 94 H 13-40 U/L Alanine Aminotransferase (ALT) 20 7-40 U/L Alkaline Phosphatase 112 46-116 U/L Total Protein 5.7 5.7-8.2 g/dL Albumin 3.2 3.2-4.8 g/dL Urine Color Colorless Yellow Urine Clarity Turbid H Clear Urine pH 6.0 5.0-9.0 Urine Specific [place] 1.011 1.001-1.035 Urine Protein Negative Negative Urine Ketones Trace Negative Urine Blood 2+ H Negative /uL Urine Nitrite Negative Negative Urine Bilirubin Negative Negative Urine Urobilinogen Normal Negative mg/dL Urine Leukocyte Esterase 3+ Negative /uL Urine RBC 14 0 - 3 /hpf Urine Microscopic WBC 30 H 0-3 /HPF Urine Squamous Epithelial Cells Few <5 /hpf Urine Bacteria Few H None Seen /hpf Urine Glucose Normal Normal mg/dL Test 12/02/24 08:47 12/01/24 19:24 12/01/24 17:06 12/01/24 16:50 Range/Units Lipase 151 H 12-53 U/L Lactic Acid Level 1.5 0.4-2.0 mmol/L Differential Total Cells Counted 100.0 100 Neutrophils % (Manual) 68 37.0-80.0 Band Neutrophils % (Manual) 2 Lymphocytes % (Manual) 18 10.0-50.0 Monocytes % (Manual) 10 0-12 Eosinophils % (Manual) 0 0-7 Basophils % (Manual) 0 0.0-2.0 Metamyelocytes % (manual) 1 Myelocytes % (Manual) 1 Promyelocytes % (Manual) 0 Blast Cells % (Manual) 0 Reactive Lymphocytes 0 Platelet Estimate Adequate Erythrocyte Sedimentation Rate 7 0-20 mm/hr Ammonia 56 H 11-32 umol/L C-Reactive Protein High Sensitivity 2.01 H <1.0 mg/dL Beta-Hydroxybutyric Acid > 4.500 H < 0.4 mmol/L Blood Gas Critical Value Read Back yes Blood Gas Notified Whom dr.[email or web address] Blood Gas Notified Time [id number] Blood Gas Notified By occupational therapy specialist dean Test 12/01/24 13:23 12/01/24 00:00 Range/Units Macrocytosis Moderate Serum Osmolality 355 H 278-298 mOsm/kg Urine Mucus Few None Seen Microbiology Date/Time Source Procedure Growth Status 12/02/24 14:31 Urine - [place] Urine Culture - Preliminary Resulted 12/01/24 21:06 Nose MRSA Screen - Final Complete 12/01/24 17:06 Blood Blood Culture - Preliminary NO GROWTH AFTER 48 HOURS OF INCUBATION. Resulted 12/01/24 00:00 Sputum Endotracheal Wash Gram Stain - Final Complete 12/01/24 00:00 Respiratory Culture - Final Klebsiella pneumoniae Complete Assessment Impression: Acute hypoxic respiratory failure On mechanical ventilator Acute metabolic encephalopathy Pneumonia, likely GNR Bipolar disorder Cannabinoid use Plan: s/p intubation on mechanical ventilator. On AC mode; RR 28, VT 500, PEEP 5, FiO2 30% Titrate FIO2 to keep O2 saturation above 90%. VAP bundle. Daily ABG and CXR while intubated Sedate for ventilator synchrony - on Versed and Fentanyl Continue bronchodilators. Continue antibiotics. Follow up cultures. Accu-Cheks for glycemic monitoring. Insulin PRN. Tube feeds for nutritional support Follow up Psych recommendations Pressors as necessary for hemodynamic support Titrate to keep mean arterial pressure greater than 65 mmHg. Monitor renal function Monitor electrolytes. Supplement as necessary. Monitor ins and outs. Maintain euvolemia. GI prophylaxis. DVT prophylaxis. Prognosis: Poor given patient's multiple co-morbidities. Condition: Critical Rest of plan per hospitalist and other consultants. A total of 35 minutes of critical care time was spent reviewing the patient record, examining the patient, making a diagnostic and therapeutic plan, discussing this plan with the medical personnel, following up on diagnostic studies and following the patient for clinical stability excluding any and all procedures. At least 50% of this time was spent in direct, [id number] contact. Thank you, SHEILA Rodriguez, for allowing me to participate in this patient's care. Further recommendations will depend on the patient's clinical course. Please do not hesitate to contact me if you have any questions or concerns. This medical document was created using an electronic medical record system with [employer] system. Although these documentations are being carefully reviewed, there may still be some phonetic and typographical changes. The errors are purely typographical, due to imperfection on the software program, and do not reflect any compromise in the patient's medical care. Plan discussed with: Other (RN/MD) Date of Service: Dec 02, 2024 Billing Provider: MIKAEL SCHWARTZ MD Common Visit Codes: [id number] INP/OBS CARE (HIGH), [id number] CARE 30- 74 MIN MIKAEL SCHWARTZ MD Dec 03, 2024 22:58
--- NOTE | 2024-12-03 23:37 | DVHPN2 ---
Subjective DOS: 12/03/2024 Patient seen and examined at bedside. Sedated, intubated on mechanical ventilator. Overnight events reviewed. Reviewed: Care Plan, H&P, Labs, Medications, Previous Orders, Radiology Changes from previous H/P or p: No Changes Objective Vitals Vital Signs Date Time Temp Pulse Resp B/P (MAP) Pulse Ox O2 Delivery O2 Flow Rate FiO2 12/03/24 23:15 99.0 99 19 94/57 (69) 100 210.2 12/03/24 22:00 Mechanical Ventilator+ 30 30 12/03/24 06:00 28 Intake/Output Intake and Output 12/03/24 07:00 Intake Total 2772.75 ml Output Total 3400 ml Balance -627.25 ml Intake Oral 340 ml IV Total 2432.75 ml Output Urine Total 3400 ml Stool Total 0 ml General Appearance: Other (vent) HEENT: Atraumatic, PERRLA Lungs: Other (On vent; few crackles) Cardiovascular: Other (border tachy) Abdomen: Normal bowel sounds Medications Current Medications Medications Dose Ordered Sig/Misa Route Start Time Stop Time Status Last Admin Dose Admin Midazolam HCl 50 ml @ 1 mls/hr Q24H IV 12/01/24 12:45 12/03/24 22:08 15 MLS/HR Dextrose 50 ml UD PRN IV 12/01/24 13:30 Cancel Insulin Glargine 15 units DAILY SC 12/02/24 10:00 Cancel Fentanyl Citrate 250 ml @ 2.5 mls/hr Q24H IV 12/01/24 16:30 12/03/24 18:32 32.5 MLS/HR Dextrose 50 ml UD PRN IV 12/01/24 16:45 Cancel Ondansetron HCl 4 mg Q4HP PRN IV 12/01/24 16:45 Acetaminophen 650 mg Q6HP PRN PO 12/01/24 16:45 Nitroglycerin 0.4 mg Q5MINP PRN SL 12/01/24 16:45 Morphine Sulfate 2 mg Q30M PRN IV 12/01/24 16:45 Ceftriaxone Sodium 50 ml @ 100 mls/hr DAILY@09 IV 12/01/24 16:45 12/03/24 08:05 100 MLS/HR Azithromycin 250 ml @ 125 mls/hr DAILY IV 12/02/24 10:00 12/03/24 10:03 125 MLS/HR Famotidine 20 mg DAILY IV 12/02/24 10:00 12/03/24 10:03 20 MG Albuterol 2.5 mg Q4HR NEB 12/01/24 18:00 12/03/24 21:58 2.5 MG Ipratropium [place] 0.5 mg Q4HR NEB 12/01/24 18:00 12/03/24 21:58 0.5 MG Tamsulosin HCl 0.4 mg DAILY PO 12/02/24 10:00 12/02/24 10:15 0.4 MG Albuterol 2.5 mg Q4HPRN PRN NEB 12/01/24 18:00 Ipratropium [place] 0.5 mg Q4HPRN PRN NEB 12/01/24 18:00 Diagnostic Test (Pha) 1 strip Q6HR 12/02/24 18:00 12/03/24 17:49 1 STRIP Insulin Human Regular Q6HR SC 12/02/24 18:00 12/03/24 17:49 9 UNITS Dextrose 50 ml UD PRN IV 12/02/24 15:45 Insulin Glargine 15 units DAILY@1000 SC 12/03/24 10:00 Lactulose 30 ml Q6HR GT 12/03/24 00:00 12/03/24 10:20 30 ML Lorazepam 1 mg Q5MINP PRN IV 12/03/24 01:45 12/03/24 03:43 1 MG Norepinephrine Bitartrate 250 ml @ 3.75 mls/hr Q24H IV 12/03/24 09:30 Propofol 100 ml @ 2.625 mls/ hr Q24H IV 12/03/24 09:30 Enteral Nutritional Formula 1,000 ml 40ML/HR GT 12/03/24 09:30 12/03/24 13:41 1,000 ML Levetiracetam 100 ml @ 400 mls/hr BID IV 12/03/24 10:00 UNV Levetiracetam 750 mg BID PO 12/03/24 10:00 12/03/24 21:53 750 MG Laboratory Results Laboratory Tests 12/03/24 05:40 Chemistry Test 12/03/24 05:40 Albumin 3.2 g/dL (3.2-4.8) Calcium Level 8.4 mg/dL (8.7-10.4) L Magnesium Level 1.9 mg/dL (1.6-2.6) Phosphorus Level 0.3 mg/dL (2.4-5.1) L Total Protein 5.7 g/dL (5.7-8.2) LFT Test 12/03/24 05:40 Alanine Aminotransferase (ALT) 20 U/L (7-40) Alkaline Phosphatase 112 U/L (46-116) Aspartate Amino Transferase (AST) 94 U/L (13-40) H Total Bilirubin 0.2 mg/dL (0.2-1.0) Urinalysis Test 12/01/24 00:00 12/02/24 14:31 Urine Mucus Few (None Seen) Urine Color Colorless (Yellow) Urine Clarity Turbid (Clear) H Urine pH 6.0 (5.0-9.0) Urine Specific [place] 1.011 (1.001-1.035) Urine Protein Negative (Negative) Urine Ketones Trace (Negative) Urine Blood 2+ /uL (Negative) H Urine Nitrite Negative (Negative) Urine Bilirubin Negative (Negative) Urine Urobilinogen Normal mg/dL (Negative) Urine Leukocyte Esterase 3+ /uL (Negative) Urine RBC 14 /hpf (0 - 3) Urine Microscopic WBC 30 /HPF (0-3) H Urine Squamous Epithelial Cells Few /hpf (<5) Urine Bacteria Few /hpf (None Seen) H Urine Glucose Normal mg/dL (Normal) Blood Gas Results Test 12/03/24 06:42 12/03/24 11:45 Arterial Blood pH 7.501 (7.350-7.450) 7.465 (7.350-7.450) FiO2 % 30.0 30.0 Microbiology Microbiology Date/Time Source Procedure Growth Status 12/02/24 14:31 Urine - [place] Port Urine Culture - Preliminary Resulted 12/01/24 21:06 Nose MRSA Screen - Final Complete 12/01/24 17:06 Blood Blood Culture - Preliminary NO GROWTH AFTER 48 HOURS OF INCUBATION. Resulted 12/01/24 00:00 Sputum Endotracheal Wash Gram Stain - Final Complete 12/01/24 00:00 Respiratory Culture - Final Klebsiella pneumoniae Complete Assessment/Plan Assessment/Plan Impression: Acute hypoxic respiratory failure On mechanical ventilator Acute metabolic encephalopathy Pneumonia, likely GNR Bipolar disorder Cannabinoid use Events: Remains on vent support On AC mode; RR 28-->20, VT 500, PEEP 5, FiO2 30% Taper O2 as tolerated Sedated on Versed and Fentanyl ABG reviewed, notable for alkalemia. Continue antibiotics Monitor renal function Monitor electrolytes. Supplement as necessary. Potassium supplementation Monitor ins and outs. Tube feeds for nutritional support Labs and imaging reviewed. Rest of plan as noted below. Plan: s/p intubation on mechanical ventilator. On AC mode; RR 20, VT 500, PEEP 5, FiO2 30% Titrate FIO2 to keep O2 saturation above 90%. VAP bundle. Daily ABG and CXR while intubated Sedate for ventilator synchrony - on Versed and Fentanyl Continue bronchodilators. Continue antibiotics. Follow up cultures. Accu-Cheks for glycemic monitoring. Insulin PRN. Tube feeds for nutritional support Follow up Psych recommendations Pressors as necessary for hemodynamic support Titrate to keep mean arterial pressure greater than 65 mmHg. Monitor renal function Monitor electrolytes. Supplement as necessary. Monitor ins and outs. Maintain euvolemia. Tube feeds for nutritional support GI prophylaxis. DVT prophylaxis. Prognosis: Poor given patient's multiple co-morbidities. Condition: Critical Rest of plan per hospitalist and other consultants. A total of 35 minutes of critical care time was spent reviewing the patient record, examining the patient, making a diagnostic and therapeutic plan, discussing this plan with the medical personnel, following up on diagnostic studies and following the patient for clinical stability excluding any and all procedures. At least 50% of this time was spent in direct, [id number] contact. Thank you, SHEILA Rodriguez, for allowing me to participate in this patient's care. Further recommendations will depend on the patient's clinical course. Please do not hesitate to contact me if you have any questions or concerns. This medical document was created using an electronic medical record system with [employer] dictation system. Although these documentations are being carefully reviewed, there may still be some phonetic and typographical changes. The errors are purely typographical, due to imperfection on the software program, and do not reflect any compromise in the patient's medical care. Plan discussed with: Other (KEYANA Mcgovern) Date of Service: Dec 03, 2024 Billing Provider: MIKAEL SCHWARTZ MD Common Visit Codes: [id number] INP/OBS CARE(HIGH), [id number] CARE 30-74 MIN MIKAEL SCHWARTZ MD Dec 03, 2024 23:37
[2024-12-04] VITALS (88 sets, daily range): BP systolic 85–129; BP diastolic 46–96; PULSE 83–123; RESP 15–40; TEMP 79.3–101.1; O2SAT 89–100
--- NOTE | 2024-12-04 04:23 | DVH ---
CHEST RADIOGRAPH Indication: fu Technique: Single frontal view of the chest was obtained COMPARISON: XY CHEST PORTABLE on DOS: 12/03/24, XY CHEST PORTABLE on DOS: 12/02/24, XY CHEST PORTABLE o n DOS: 12/01/24, XY CHEST PORTABLE on DOS: 12/20/23, XY CHEST TWO VIEWS ROUTINE on DOS: 12/13/23 FINDINGS: Lines and Tubes: Slight interval advancement of the endotracheal tube such that the tip now projects 4.1 cm above the level of the laci. Remaining lines and tubes unchanged. Lungs: Mild diffuse increased prominence of the pulmonary vasculature. No evidence of focal consolida tion. Trace left pleural effusion. No pneumothorax. Cardiomediastinal contours: Unremarkable Bones: Unremarkable IMPRESSION: 1. Slight interval advancement of the endotracheal tube such that the tip now projects 4.1 cm above t he level of the laci. Remaining lines and tubes unchanged. 2. Mild diffuse increased prominence of the pulmonary vasculature and trace left pleural effusion.
[2024-12-04 04:33] LABS: Hematocrit 32.9 % (41.0-53.0); Hemoglobin 11.2 g/dL (13.5-17.5); Mean Corpuscular Hemoglobin 30.5 pg (28.0-32.0); Mean Corpuscular Volume 89.5 fL (80.0-100.0); Nucleated Red Blood Cells % 0.0 %
[2024-12-04 04:59] LABS: Alanine Aminotransferase 23 U/L (7-40); Albumin 3.2 g/dL (3.2-4.8); Anion Gap 8 (5-15); BUN/Creatinine Ratio 17.8 (10.0-20.0); Blood Urea Nitrogen 13 mg/dL (9-23); Carbon Dioxide 25 mmol/L (20-31); Glucose 89 mg/dL (74-106); Magnesium 1.9 mg/dL (1.6-2.6); Potassium 4.0 mmol/L (3.5-5.1); Sodium 143 mmol/L (136-145)
[2024-12-04 05:00] LABS: Bilirubin, Total 0.3 mg/dL (0.2-1.0)
[2024-12-04 05:05] LABS: Alkaline Phosphatase 133 U/L (46-116); Calcium 8.5 mg/dL (8.7-10.4); Chloride 110 mmol/L (98-107); Total Protein 5.7 g/dL (5.7-8.2)
[2024-12-04] MEDS: ACETAMINOPHEN 325 MG TAB PO PRN (06:20)
[2024-12-04 07:02] LABS: Base Excess -5.0 mmol/L (-2.0-3.0)
[2024-12-04 12:01] LABS: Creatine Kinase IFCC 1232.0 U/L (46-171)
[2024-12-04] MEDS: LACTULOSE 20Gm/30ML SOLN GT SCH (12:12)
--- NOTE | 2024-12-04 12:48 | MEDREC ---
[facility] ASP Intervention Section I [facility] ASP Intervention: Deescalate AB based on CS (PLEASE CONSIDER DE-ESCALATION BASED ON CULTURE RESULTS AND SUSCEPTIBILITIES ) RICO DANIELLE PHARMACIST Dec 04, 2024 12:48
[2024-12-04] MEDS: SODIUM CHLORIDE 0.9% 1,000 ML IV ONE (13:10)
[2024-12-04] MEDS: THIAMINE 100mg/ml INJ (200mg/2ml VIAL) IV ONE (13:20)
[2024-12-04] MEDS: FOLIC ACID 1 MG in D5W 5% 50 ML INJ ONE (13:25)
[2024-12-04] MEDS: ALBUTEROL SULF 2.5 MG/0.5ML(0.5%) NEB SOLN NEB PRN (13:30)
[2024-12-04] MEDS: SODIUM PHOSPHATES 24 MEQ in SODIUM CHL 0.9% 100 ML IV ONE (14:10)
[2024-12-04] MEDS: ENOXAPARIN SOD 40 MG/0.4 ML SYRINGE SC ONE (14:45)
[2024-12-04] MEDS: PROPOFOL 100 ML IV SCH (18:31)
[2024-12-04] MEDS: NOREPINEPHRINE 8 MG/250ML KIT 250 ML IV SCH (19:15)
--- NOTE | 2024-12-04 19:22 | DVHPNRES ---
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 Per patient's roommate, he has not been using his medicine since 1 week, and had developed nausea, vomiting and diarrhea since 3 days, and since 1 day has been altered. Denies fever, loss of consciousness, or any trauma. 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 Lives with friend at home. At baseline mobile, but does not work, on disability Home medication: Quetiapine, sertraline, gabapentin, insulin NPH, levetiracetam, oxcarbazepine, and hydroxyzine, noncompliant with the medicine Patient seen and examined at the bedside. Patient is sedated and on mechanical ventilation. Collateral history taken from friend through phone. Objective vital signs Vital Sign Date Time Temp Pulse Resp B/P (MAP) Pulse Ox O2 Delivery O2 Flow Rate FiO2 12/04/24 18:15 101.1 117 23 112/63 (79) 94 214.0 12/04/24 18:00 Mechanical Ventilator+ 30 30 12/03/24 06:00 28 Total Intake and Output 12/03/24 12/03/24 12/04/24 15:00 23:00 07:00 Intake Total 606 ml 452.5 ml 676.125 ml Output Total 650 ml 700 ml Balance 606 ml -197.5 ml -23.875 ml medications Current Medications Medications Dose Ordered Sig/Misa Route Start Time Stop Time Status Last Admin Dose Admin Midazolam HCl 50 ml @ 1 mls/hr Q24H IV 12/01/24 12:45 12/04/24 14:46 10 MLS/HR Dextrose 50 ml UD PRN IV 12/01/24 13:30 Cancel Insulin Glargine 15 units DAILY SC 12/02/24 10:00 Cancel Fentanyl Citrate 250 ml @ 2.5 mls/hr Q24H IV 12/01/24 16:30 12/04/24 15:30 22.5 MLS/HR Dextrose 50 ml UD PRN IV 12/01/24 16:45 Cancel Acetaminophen 650 mg Q6HP PRN PO 12/01/24 16:45 12/04/24 06:20 650 MG Ceftriaxone Sodium 50 ml @ 100 mls/hr DAILY@09 IV 12/01/24 16:45 12/04/24 09:37 100 MLS/HR Azithromycin 250 ml @ 125 mls/hr DAILY IV 12/02/24 10:00 12/04/24 09:42 125 MLS/HR Famotidine 20 mg DAILY IV 12/02/24 10:00 12/04/24 09:42 20 MG Ipratropium [place] 0.5 mg Q4HR NEB 12/01/24 18:00 12/04/24 17:57 0.5 MG Albuterol 2.5 mg Q4HPRN PRN NEB 12/01/24 18:00 12/04/24 17:57 2.5 MG Diagnostic Test (Pha) 1 strip Q6HR 12/02/24 18:00 12/04/24 17:44 1 STRIP Insulin Human Regular Q6HR SC 12/02/24 18:00 12/04/24 17:46 9 UNITS Dextrose 50 ml UD PRN IV 12/02/24 15:45 Insulin Glargine 15 units DAILY@1000 SC 12/03/24 10:00 12/04/24 10:22 15 UNITS Lorazepam 1 mg Q5MINP PRN IV 12/03/24 01:45 12/03/24 03:43 1 MG Enteral Nutritional Formula 1,000 ml 40ML/HR GT 12/03/24 09:30 12/03/24 13:41 1,000 ML Levetiracetam 100 ml @ 400 mls/hr BID IV 12/03/24 10:00 UNV Levetiracetam 750 mg BID PO 12/03/24 10:00 12/04/24 09:42 750 MG Lactulose 60 ml Q6HR GT 12/04/24 12:12 Folic Acid 1 mg/ Dextrose 50.2 ml @ 200.8 mls/ hr DAILY INJ 12/05/24 10:00 Thiamine HCl 100 mg DAILY IV 12/05/24 10:00 Enoxaparin Sodium 40 mg DAILY SC 12/05/24 10:00 Clindamycin Phosphate 50 ml @ 50 mls/hr Q8HR IV 12/04/24 22:00 Propofol 100 ml @ 2.673 mls/ hr Q24H IV 12/04/24 18:15 12/04/24 18:31 2.673 MLS/HR Examination Physical Exam General: RASS -5, afebrile, mucosae are moist Cardiovascular: Normal S1 and S2. No murmurs, gallops or rubs Respiratory: Mechanically assisted ventilation, equal bilateral airway entree. Clear lung sounds on auscultation Mechanical ventilation setting: GI: Soft, nontender, no organomegaly, normal bowel sounds : Orellana catheter n place, clear yellow urine in collection bag MSK/skin: Mobilization of limbs cannot be evaluated. Skin is dry and warm. IV accesses: A small 2 x 2 cm scab noticed at the heel of left leg Neurological: Orientation cannot be assessed. No apparent motor no sensitive deficits. Pupils are isocoric and reactive laboratory and microbiology Laboratory Tests 12/04/24 03:51 Test 12/04/24 03:51 Range/Units Serum Glucose 89 # 74-106 mg/dL Microbiology Date/Time Source Procedure Growth Status 12/02/24 14:31 Urine - [place] Urine Culture - Preliminary Resulted 12/01/24 21:06 Nose MRSA Screen - Final Complete 12/01/24 17:06 Blood Blood Culture - Preliminary NO GROWTH AFTER 72 HOURS OF INCUBATION. Resulted 12/01/24 00:00 Sputum Endotracheal Wash Gram Stain - Final Complete 12/01/24 00:00 Respiratory Culture - Final Klebsiella pneumoniae Complete Labs and/or images reviewed: Labs reviewed by me, Image(s) reviewed by me Problem List/Assessment/Plan Problem List/Assessment/Plan This is a 44-year-old male with past medical history of CVA, subdural hematoma, (status post CARDIOGRAPH OPERATOR shunt), depression, diabetes type 1, and bipolar disorder brought to the hospital due to nausea, vomiting, diarrhea and altered mental status. Had admitted with primary diagnosis of DKA/HHS. And had admitted and intubated on 12/01. NEURO: Acute metabolic encephalopathy, likely due to DKA/HHS/sepsis History of intracerebral hemorrhage, status post CARDIOGRAPH OPERATOR shunt Possible alcohol withdrawal * Head CT scan 12/01, no new intracranial abnormalities * RASS score -4 * Plan: Versed, fentanyl and propofol CARDIOVASCULAR: Sinus tachycardia RESPIRATORY: Acute hypoxic respiratory failure, likely due to pneumonia Pneumonia, due to Kleb pneumonia * Chest x-ray shows bilateral haziness, with prominent bronchovascular marking * MV setting: VC mode, TV 400, RR 20, FiO2 30%, peep 5 * Plan: Mechanical ventilation, breathing treatment and IV antibiotic GENITOURINARY/FLUID: REYNALDO, likely VMN, resolved * Plan: IV fluid GASTROINTESTINAL/NUTRITION: Alcohol use disorder Possible alcohol withdrawal Possible refeeding syndrome * Plan: Thiamine, and folic acid INFECTIOUS DISEASE: Sepsis, likely due to pneumonia Pneumonia, due to Klebsiella pneumoniae Dental infection * Sputum culture 12/01, Klebsiella pneumoniae * Blood and urine culture 12/01, Shows no growth * Plan: Rocephin bracket 12/01), azithromycin (12/01) and clindamycin (12/04) HEMATOLOGY: Mild anemia, normocytic normochromic ENDOCRINE: Diabetes type 1 DKA/HHS * Plan: Lantus 15 units, ISS, sodium phosphate METABOLIC: Hypokalemia Hyponatremia Hypomagnesemia Hypophosphatemia Hyperphosphatemia * Plan: Sodium phosphate MSK/SKIN: Skin scab, on the heel of left leg Bipolar disorder DIET: NPO DVT prophylax: Lovenox GI prophylaxis: Protonix Bowel regimen: Lactulose LINES/DEVICES ETT: Intubated on 12/01 IV access: Right IJ put on 12/01 Drips: Fentanyl, Versed and propofol Orellana catheter: Placed on 12/01 OG-tube: Disposition: Continue ICU status Family: Patients friends (Durga) updated through the phone. Critical care time: Spent > 83 min, spent in direct critical care, including evaluation, management, review of labs/imaging, and multidisciplinary/family discussions, (excluding any procedures). Case discussed with Dr. Valentino Plan discussed with: Patient, Other My Orders My Orders Orders - SEAN DE LOS SANTOS RESDIYANG Procedure Category Date Status Time Lactulose Oral PHA 12/04/24 In Process 12:12 Folic Acid PHA 12/05/24 In Process 10:00 Thiamine Inj PHA 12/05/24 In Process 10:00 Enoxaparin Sodium PHA 12/05/24 In Process (Lovenox) 10:00 Ventilator Orders RT 12/04/24 Transmitted 10:57 Clindamycin 600mg Iv PHA 12/04/24 In Process (Cleocin Iv) 22:00 Comprehensive LAB 12/05/24 Verified Metabolic Panel 04:00 Complete Blood Count LAB 12/05/24 Verified 04:00 Abg W/ Co-Ox RT 12/05/24 Logged 04:00 Chest Xray 1 View XY 12/05/24 Logged 04:00 Propofol (Diprivan) PHA 12/04/24 In Process 18:15 Dietary Evaluation Review Comments: 1) Initiate thiamin, folic acid, and MVI supplementation d/t recent ETOH abuse 2) If patient remains NPO > 7 days, consider EN/TPN to meet at least 75% of estimated daily needs 3) If GI is preferred, initiate Glucerna 1.2 @ 60 mL/hr goal rate as tolerated. Flush with 150 mL Q6H. TF regimen will provide 1728 kcals, 86g Pro, and 1759 mL free H2O (including flushes) per 24 hrs. Goal rate will meet ~87% estimated daily energy needs and ~72% estimated daily protein needs 4) Advance to 60g CCHO cardiac diet when medically feasible, pending ST approval 5) Collect HbA1c 6) Refer to outpatient RD/CD[facility] for diabetes education 7) Follow-up with cardiology, pulmonology, and psychiatry 8) Follow-up with family welfare social work professor r/t ETOH abuse 9) Continue to monitor I&O, labs, and skin integrity Expected Outcomes/Goals: 1) patient to receive nutritional support within 7 days of NPO status 2) labs and GI symptoms to improve 3) diet to advance 4) follow-up in 2-3 days Date of Service: Dec 04, 2024 Billing Provider: APRIL VALENTINO MD Common Visit Codes: [id number] CARE 30-74 MIN, [id number] CARE-EACH +30MIN HESEAN RENTERIA RESDIENT Dec 04, 2024 19:22 APRIL VALENTINO MD Dec 05, 2024 12:26
[2024-12-04] MEDS: CLINDAMYCIN 600MG IV 50 ML IV SCH (21:41)
[2024-12-05] VITALS (105 sets, daily range): BP systolic 85–144; BP diastolic 53–98; PULSE 75–114; RESP 14–31; TEMP 96.3–100.6; O2SAT 89–100
[2024-12-05 03:59] LABS: Hematocrit 30.0 % (41.0-53.0); Hemoglobin 10.2 g/dL (13.5-17.5); Mean Corpuscular Hemoglobin 30.7 pg (28.0-32.0); Mean Corpuscular Volume 90.5 fL (80.0-100.0); Nucleated Red Blood Cells % 0.1 %
[2024-12-05 04:20] LABS: Alanine Aminotransferase 18 U/L (7-40); Albumin 3.2 g/dL (3.2-4.8); Alkaline Phosphatase 123 U/L (46-116); Anion Gap 8 (5-15); BUN/Creatinine Ratio 16.7 (10.0-20.0); Blood Urea Nitrogen 11 mg/dL (9-23); Calcium 8.0 mg/dL (8.7-10.4); Carbon Dioxide 24 mmol/L (20-31); Chloride 112 mmol/L (98-107); Glucose 114 mg/dL (74-106); Potassium 3.9 mmol/L (3.5-5.1); Sodium 144 mmol/L (136-145); Total Protein 5.8 g/dL (5.7-8.2)
[2024-12-05 04:21] LABS: Bilirubin, Total 0.2 mg/dL (0.2-1.0)
--- NOTE | 2024-12-05 04:52 | DVH ---
CHEST RADIOGRAPH Indication: Pneumonia Technique: Single frontal view of the chest was obtained COMPARISON: XY CHEST PORTABLE on DOS: 12/04/24, XY CHEST PORTABLE on DOS: 12/03/24, XY CHEST PORTABLE o n DOS: 12/02/24, XY CHEST PORTABLE on DOS: 12/01/24, XY CHEST PORTABLE on DOS: 12/20/23 FINDINGS: Lines and Tubes: Slight interval retraction of the endotracheal tube such that the tip now projects a pproximately 5.7 cm above the level of the laci. Remaining lines and tubes unchanged. Lungs: Stable appearing small left pleural effusion. Lungs are otherwise clear. No pneumothorax. Cardiomediastinal contours: Cardiomegaly. Bones: Unremarkable IMPRESSION: 1. Slight interval retraction of the endotracheal tube. Remaining lines and tubes unchanged. 2. Cardiomegaly and small left pleural effusion.
[2024-12-05] MEDS: FOLIC ACID 1 MG in D5W 5% 50 ML INJ SCH (08:39)
[2024-12-05 08:41] LABS: Base Excess -3.4 mmol/L (-2.0-3.0)
[2024-12-05] MEDS ORDERED: HALOPERIDOL LACTATE 5 MG/ML INJ VIAL IV PRN (08:45)
[2024-12-05] MEDS: THIAMINE 100mg/ml INJ (200mg/2ml VIAL) IV SCH (09:05)
[2024-12-05] MEDS: ENOXAPARIN SOD 40 MG/0.4 ML SYRINGE SC SCH (09:08)
[2024-12-05] MEDS: LACTULOSE 20Gm/30ML SOLN GT SCH (09:53)
--- NOTE | 2024-12-05 18:32 | DVHPNRES ---
Progress Note Date Seen: Dec 05, 2024 Resident Creating Document: SEAN DE LOS SANTOS RESDIENT Medical Necessity Reason Pt with a Central, PICC or Fol: Yes The following are medically ne: Orellana Catheter Subjective Review of Systems This is a 44-year-old male with past medical history of asthma, CVA, intracerebral hemorrhage, subdural hematoma, (status post UTILITY MECHANIC shunt, 10 years back), depression, diabetes type 1, hypertension, seizure, bipolar disorder brought to the hospital due to altered mental status. Per patient's roommate, he has not been using his medicine since 1 week, and had developed nausea, vomiting and diarrhea since 3 days, and since 1 day has been altered. Denies fever, loss of consciousness, or any trauma. PMHx: asthma, CVA, intracerebral hemorrhage, subdural hematoma, (status post UTILITY MECHANIC shunt, 10 years back), depression, diabetes type 1, hypertension, seizure, bipolar disorder PSHx: UTILITY MECHANIC shunt (10 years back), had removed molar to 3 weeks back, had tracheostomy in 2019 (due to intracerebral hemorrhage) Social history: Smokes marijuana and drink heavy alcohol. Lives with friend at home. At baseline mobile, but does not work, on disability Home medication: Quetiapine, sertraline, gabapentin, insulin NPH, levetiracetam, oxcarbazepine, and hydroxyzine, noncompliant with the medicine Today, 12/05, Patient seen and examined at the bedside. Patient is sedated and on mechanical ventilation. Collateral history taken from friend through phone. Objective vital signs Vital Sign Date Time Temp Pulse Resp B/P (MAP) Pulse Ox O2 Delivery O2 Flow Rate FiO2 12/05/24 18:00 20 96 Mechanical Ventilator+ 30 30 12/05/24 18:00 90 12/05/24 17:45 99.1 121/81 (94) 210.4 Total Intake and Output 12/04/24 12/04/24 12/05/24 15:00 23:00 07:00 Intake Total 470.792 ml 765.234 ml 1015.038 ml Output Total 1750 ml 600 ml Balance 470.792 ml -984.766 ml 415.038 ml medications Current Medications Medications Dose Ordered Sig/Misa Route Start Time Stop Time Status Last Admin Dose Admin Midazolam HCl 50 ml @ 1 mls/hr Q24H IV 12/01/24 12:45 12/05/24 15:15 15 MLS/HR Dextrose 50 ml UD PRN IV 12/01/24 13:30 Cancel Insulin Glargine 15 units DAILY SC 12/02/24 10:00 Cancel Fentanyl Citrate 250 ml @ 2.5 mls/hr Q24H IV 12/01/24 16:30 12/05/24 13:30 35 MLS/HR Dextrose 50 ml UD PRN IV 12/01/24 16:45 Cancel Acetaminophen 650 mg Q6HP PRN PO 12/01/24 16:45 12/04/24 06:20 650 MG Ceftriaxone Sodium 50 ml @ 100 mls/hr DAILY@09 IV 12/01/24 16:45 12/05/24 09:00 100 MLS/HR Azithromycin 250 ml @ 125 mls/hr DAILY IV 12/02/24 10:00 12/05/24 09:48 125 MLS/HR Famotidine 20 mg DAILY IV 12/02/24 10:00 12/05/24 09:05 20 MG Ipratropium [place] 0.5 mg Q4HR NEB 12/01/24 18:00 12/05/24 14:16 0.5 MG Albuterol 2.5 mg Q4HPRN PRN NEB 12/01/24 18:00 12/05/24 03:39 2.5 MG Diagnostic Test (Pha) 1 strip Q6HR 12/02/24 18:00 12/05/24 17:02 1 STRIP Insulin Human Regular Q6HR SC 12/02/24 18:00 12/05/24 17:03 2 UNITS Dextrose 50 ml UD PRN IV 12/02/24 15:45 Insulin Glargine 15 units DAILY@1000 SC 12/03/24 10:00 12/05/24 09:08 15 UNITS Lorazepam 1 mg Q5MINP PRN IV 12/03/24 01:45 12/03/24 03:43 1 MG Enteral Nutritional Formula 1,000 ml 40ML/HR GT 12/03/24 09:30 12/03/24 13:41 1,000 ML Levetiracetam 100 ml @ 400 mls/hr BID IV 12/03/24 10:00 UNV Levetiracetam 750 mg BID PO 12/03/24 10:00 12/05/24 09:07 750 MG Folic Acid 1 mg/ Dextrose 50.2 ml @ 200.8 mls/ hr DAILY INJ 12/05/24 10:00 12/05/24 08:39 200.8 MLS/HR Thiamine HCl 100 mg DAILY IV 12/05/24 10:00 12/05/24 09:05 100 MG Enoxaparin Sodium 40 mg DAILY SC 12/05/24 10:00 12/05/24 09:08 40 MG Clindamycin Phosphate 50 ml @ 50 mls/hr Q8HR IV 12/04/24 22:00 12/05/24 13:25 50 MLS/HR Propofol 100 ml @ 2.673 mls/ hr Q24H IV 12/04/24 18:15 12/05/24 09:58 8.019 MLS/HR Norepinephrine Bitartrate 250 ml @ 3.75 mls/hr Q24H IV 12/04/24 19:15 12/05/24 09:53 3.75 MLS/HR Lactulose 30 ml Q6HR GT 12/05/24 08:45 12/05/24 17:02 30 ML Polyethylene Glycol 17 gm DAILY PO 12/06/24 10:00 Haloperidol Lactate 5 mg Q8HP PRN IV 12/05/24 08:45 Oxcarbazepine 600 mg Q12HR PO 12/05/24 22:00 Quetiapine Fumarate 200 mg HS PO 12/05/24 22:00 Gabapentin 300 mg BID PO 12/05/24 22:00 Valproate Sodium 500 mg BID GT 12/05/24 22:00 Examination General: RASS -5, afebrile, mucosae are moist Cardiovascular: Normal S1 and S2. No murmurs, gallops or rubs Respiratory: Mechanically assisted ventilation, equal bilateral airway entree. Clear lung sounds on auscultation Mechanical ventilation setting: GI: Soft, nontender, no organomegaly, normal bowel sounds : Orellana catheter n place, clear yellow urine in collection bag MSK/skin: Mobilization of limbs cannot be evaluated. Skin is dry and warm. IV accesses: A small 2 x 2 cm scab noticed at the heel of left leg Neurological: Orientation cannot be assessed. No apparent motor no sensitive deficits. Pupils are isocoric and reactive laboratory and microbiology Laboratory Tests 12/05/24 03:09 Test 12/05/24 03:09 Range/Units Serum Glucose 114 H 74-106 mg/dL Microbiology Date/Time Source Procedure Growth Status 12/02/24 14:31 Urine - Orellana Port Urine Culture - Final Complete 12/01/24 21:06 Nose MRSA Screen - Final Complete 12/01/24 17:06 Blood Blood Culture - Preliminary NO GROWTH AFTER 72 HOURS OF INCUBATION. Resulted 12/01/24 00:00 Sputum Endotracheal Wash Gram Stain - Final Complete 12/01/24 00:00 Respiratory Culture - Final Klebsiella pneumoniae Complete Labs and/or images reviewed: Labs reviewed by me, Image(s) reviewed by me Problem List/Assessment/Plan Problem List/Assessment/Plan This is a 44-year-old male with past medical history of CVA, subdural hematoma, (status post UTILITY MECHANIC shunt), depression, diabetes type 1, and bipolar disorder brought to the hospital due to nausea, vomiting, diarrhea and altered mental status. Had admitted with primary diagnosis of DKA/HHS. And had admitted and intubated on 12/01. NEURO: Acute metabolic encephalopathy, likely due to DKA/HHS/sepsis History of intracerebral hemorrhage, status post UTILITY MECHANIC shunt Possible alcohol withdrawal History of epilepsy Bipolar disorder/depression * Head CT scan 12/01, no new intracranial abnormalities * RASS score -4 * Continue home meds: Keppra, oxygen carbamazepine, valproic acid, gabapentin, quetiapine * Plan: Versed, fentanyl and propofol CARDIOVASCULAR: Sinus tachycardia RESPIRATORY: Acute hypoxic respiratory failure, likely due to pneumonia Pneumonia, due to Klebsiella pneumoniae * Chest x-ray shows bilateral haziness, with prominent bronchovascular marking * MV setting: VC mode, TV 400, RR 20, FiO2 30%, peep 5 * Plan: Mechanical ventilation, breathing treatment and IV antibiotic, CPAP a.m. GENITOURINARY/FLUID: REYNALDO, likely VMN, resolved * Plan: IV fluid GASTROINTESTINAL/NUTRITION: Alcohol use disorder Possible alcohol withdrawal Possible refeeding syndrome * Plan: Thiamine, and folic acid INFECTIOUS DISEASE: Sepsis, likely due to pneumonia Pneumonia, due to Klebsiella pneumoniae Dental infection * Sputum culture 12/01, Klebsiella pneumoniae * Blood and urine culture 12/01, Shows no growth * Plan: Rocephin bracket 12/01), azithromycin (12/01) and clindamycin (12/04) HEMATOLOGY: Mild anemia, normocytic normochromic ENDOCRINE: Diabetes type 1 DKA/HHS * Plan: Lantus 15 units, ISS, sodium phosphate METABOLIC: Hypokalemia Hyponatremia Hypomagnesemia Hypophosphatemia Hyperphosphatemia MSK/SKIN: Skin scab, on the heel of left leg DIET: NPO DVT prophylax: Lovenox GI prophylaxis: Protonix Bowel regimen: Lactulose LINES/DEVICES ETT: Intubated on 12/01 IV access: Right IJ put on 12/01 Drips: Fentanyl, Versed and propofol Orellana catheter: Placed on 12/01 OG-tube: Disposition: Continue ICU status Family: Patients friends (Durga) updated through the phone. Critical care time: Spent > 83 min, spent in direct critical care, including evaluation, management, review of labs/imaging, and multidisciplinary/family discussions, (excluding any procedures). Case discussed with Dr. Ara Ledezma discussed with: Other My Orders My Orders Orders - SEAN DE LOS SANTOS RESDIYANG Procedure Category Date Status Time Norepinephrine 8 PHA 12/04/24 In Process Mg/250ml Kit 19:15 Lactulose Oral PHA 12/05/24 In Process 08:45 Polyethylene Glycol PHA 12/06/24 In Process 17g Powder (Miralax 10:00 Haloperidol Lactate PHA 12/05/24 In Process Injection (Haldol) 08:45 Quetiapine Fumarate PHA 12/05/24 In Process Tablet (Seroquel Tab 22:00 Gabapentin Capsule PHA 12/05/24 In Process (Neurontin Capsule) 22:00 Complete Blood Count LAB 12/06/24 Verified 04:00 Comprehensive LAB 12/06/24 Verified Metabolic Panel 04:00 Abg W/ Co-Ox RT 12/05/24 Logged 15:53 Chest Xray 1 View XY 12/06/24 Logged 04:00 Oxcarbazepine Tablet PHA 12/05/24 In Process (Trileptal Tablet) 22:00 Abg W/ Co-Ox RT 12/06/24 Logged 04:00 Valproic Acid Oral PHA 12/05/24 In Process Soln (Depakene Oral S 22:00 Dietary Evaluation Review Comments: 1) Initiate thiamin, folic acid, and MVI supplementation d/t recent ETOH abuse 2) If patient remains NPO > 7 days, consider EN/TPN to meet at least 75% of estimated daily needs 3) If GI is preferred, initiate Glucerna 1.2 @ 60 mL/hr goal rate as tolerated. Flush with 150 mL Q6H. TF regimen will provide 1728 kcals, 86g Pro, and 1759 mL free H2O (including flushes) per 24 hrs. Goal rate will meet ~87% estimated daily energy needs and ~72% estimated daily protein needs 4) Advance to 60g CCHO cardiac diet when medically feasible, pending ST approval 5) Collect HbA1c 6) Refer to outpatient RD/[facility] for diabetes education 7) Follow-up with cardiology, pulmonology, and psychiatry 8) Follow-up with oncology social work r/t ETOH abuse 9) Continue to monitor I&O, labs, and skin integrity Expected Outcomes/Goals: 1) patient to receive nutritional support within 7 days of NPO status 2) labs and GI symptoms to improve 3) diet to advance 4) follow-up in 2-3 days Date of Service: Dec 05, 2024 Billing Provider: APRIL VALENTINO MD Common Visit Codes: [id number] CARE 30-74 MIN, [id number] CARE-EACH +30MIN SEAN DE LOS SANTOS RESDIENT Dec 05, 2024 18:32 APRIL VALENTINO MD Dec 06, 2024 13:03
[2024-12-05] MEDS: FLEET ENEMA(ADULT) 135 ML PR ONE (20:00)
[2024-12-05] MEDS: carBAMazepine 200 MG/10 ML Ud ORAL Susp GT SCH (22:00)
[2024-12-05] MEDS: VALPROIC ACID 250 MG/5 ML ORAL SOLN GT SCH (22:13)
[2024-12-05] MEDS: GABAPENTIN 300 MG CAP PO SCH (22:13)
[2024-12-06] VITALS (107 sets, daily range): BP systolic 88–154; BP diastolic 55–99; PULSE 78–132; RESP 13–26; TEMP 95–100.2; O2SAT 87–99
[2024-12-06 03:33] LABS: Hematocrit 29.4 % (41.0-53.0); Hemoglobin 10.1 g/dL (13.5-17.5); Mean Corpuscular Hemoglobin 30.8 pg (28.0-32.0); Mean Corpuscular Volume 89.7 fL (80.0-100.0); Nucleated Red Blood Cells % 0.1 %
[2024-12-06 03:55] LABS: Alanine Aminotransferase 18 U/L (7-40); Carbon Dioxide 24 mmol/L (20-31); Potassium 3.8 mmol/L (3.5-5.1)
[2024-12-06 03:56] LABS: Anion Gap 10 (5-15); Total Protein 5.8 g/dL (5.7-8.2)
[2024-12-06 03:59] LABS: Albumin 3.1 g/dL (3.2-4.8); Alkaline Phosphatase 128 U/L (46-116); BUN/Creatinine Ratio 8.6 (10.0-20.0); Bilirubin, Total < 0.2 mg/dL (0.2-1.0); Blood Urea Nitrogen < 5 mg/dL (9-23); Calcium 8.3 mg/dL (8.7-10.4); Chloride 112 mmol/L (98-107); Glucose 169 mg/dL (74-106); Sodium 146 mmol/L (136-145)
--- NOTE | 2024-12-06 04:24 | DVH ---
CHEST RADIOGRAPH Indication: Pneumonia Technique: Single frontal view of the chest was obtained COMPARISON: XY CHEST XRAY 1 VIEW on DOS: 12/05/24, XY CHEST PORTABLE on DOS: 12/04/24, XY CHEST PORTABL E on DOS: 12/03/24, XY CHEST PORTABLE on DOS: 12/02/24, XY CHEST PORTABLE on DOS: 12/01/24 FINDINGS: Lines and Tubes: Slight interval retraction of endotracheal tube such that the tip now projects appro ximately 6.8 cm above the level of the laci. Remaining lines and tubes unchanged. Lungs: Interval decrease in small left pleural effusion. The lungs are otherwise clear. No pneumothorax. Cardiomediastinal contours: Unremarkable Bones: Unremarkable IMPRESSION: 1. Interval retraction of endotracheal tube such that the tip now projects approximately 6.8 cm above the level of the laci. Remaining lines and tubes unchanged. 2. Interval decrease in small left pleural effusion.
[2024-12-06 08:58] LABS: Base Excess -2.3 mmol/L (-2.0-3.0)
[2024-12-06] MEDS: POLYETHYLENE GLYCOL 17 GM PWDR PO SCH (10:00)
--- NOTE | 2024-12-06 16:00 | DVHPNRES ---
Progress Note Date Seen: Dec 06, 2024 Resident Creating Document: SEAN DE LOS SANTOS RESDIENT Medical Necessity Reason Pt with a Central, PICC or Fol: Yes The following are medically ne: Orellana Catheter Subjective Review of Systems This is a 44-year-old male with past medical history of asthma, CVA, intracerebral hemorrhage, subdural hematoma, (status post DYNAMITE RECLAIMER shunt, 10 years back), depression, diabetes type 1, hypertension, seizure, bipolar disorder brought to the hospital due to altered mental status. Per patient's roommate, he has not been using his medicine since 1 week, and had developed nausea, vomiting and diarrhea since 3 days, and since 1 day has been altered. Denies fever, loss of consciousness, or any trauma. PMHx: asthma, CVA, intracerebral hemorrhage, subdural hematoma, (status post DYNAMITE RECLAIMER shunt, 10 years back), depression, diabetes type 1, hypertension, seizure, bipolar disorder PSHx: DYNAMITE RECLAIMER shunt (10 years back), had removed molar to 3 weeks back, had tracheostomy in 2019 (due to intracerebral hemorrhage) Social history: Smokes marijuana and drink heavy alcohol. Lives with friend at home. At baseline mobile, but does not work, on disability Home medication: Quetiapine, sertraline, gabapentin, insulin NPH, levetiracetam, oxcarbazepine, and hydroxyzine, noncompliant with the medicine Today, 12/06, Patient seen and examined at the bedside. Patient is sedated and on mechanical ventilation. Collateral history taken from friend through phone. Objective vital signs Vital Sign Date Time Temp Pulse Resp B/P (MAP) Pulse Ox O2 Delivery O2 Flow Rate FiO2 12/06/24 15:48 94 25 112/71 (85) 97 30 12/06/24 14:00 Mechanical Ventilator+ 12/06/24 13:45 98.2 208.8 Total Intake and Output 12/05/24 12/05/24 12/06/24 15:00 23:00 07:00 Intake Total 799.074 ml 898.676 ml 648.1 ml Output Total 1500 ml 1425 ml Balance 799.074 ml -601.324 ml -776.9 ml medications Current Medications Medications Dose Ordered Sig/Misa Route Start Time Stop Time Status Last Admin Dose Admin Midazolam HCl 50 ml @ 1 mls/hr Q24H IV 12/01/24 12:45 12/06/24 13:40 15 MLS/HR Dextrose 50 ml UD PRN IV 12/01/24 13:30 Cancel Insulin Glargine 15 units DAILY SC 12/02/24 10:00 Cancel Fentanyl Citrate 250 ml @ 2.5 mls/hr Q24H IV 12/01/24 16:30 12/06/24 12:15 30 MLS/HR Dextrose 50 ml UD PRN IV 12/01/24 16:45 Cancel Acetaminophen 650 mg Q6HP PRN PO 12/01/24 16:45 12/04/24 06:20 650 MG Ceftriaxone Sodium 50 ml @ 100 mls/hr DAILY@09 IV 12/01/24 16:45 12/06/24 08:59 100 MLS/HR Azithromycin 250 ml @ 125 mls/hr DAILY IV 12/02/24 10:00 12/06/24 10:09 125 MLS/HR Famotidine 20 mg DAILY IV 12/02/24 10:00 12/06/24 10:08 20 MG Ipratropium [place] 0.5 mg Q4HR NEB 12/01/24 18:00 12/06/24 14:15 0.5 MG Albuterol 2.5 mg Q4HPRN PRN NEB 12/01/24 18:00 12/06/24 14:15 2.5 MG Diagnostic Test (Pha) 1 strip Q6HR 12/02/24 18:00 12/06/24 11:57 1 STRIP Insulin Human Regular Q6HR SC 12/02/24 18:00 12/06/24 12:01 6 UNITS Dextrose 50 ml UD PRN IV 12/02/24 15:45 Insulin Glargine 15 units DAILY@1000 SC 12/03/24 10:00 12/06/24 10:06 15 UNITS Lorazepam 1 mg Q5MINP PRN IV 12/03/24 01:45 12/03/24 03:43 1 MG Enteral Nutritional Formula 1,000 ml 40ML/HR GT 12/03/24 09:30 12/03/24 13:41 1,000 ML Levetiracetam 100 ml @ 400 mls/hr BID IV 12/03/24 10:00 UNV Levetiracetam 750 mg BID PO 12/03/24 10:00 12/06/24 10:11 750 MG Folic Acid 1 mg/ Dextrose 50.2 ml @ 200.8 mls/ hr DAILY INJ 12/05/24 10:00 12/06/24 10:08 200.8 MLS/HR Thiamine HCl 100 mg DAILY IV 12/05/24 10:00 12/06/24 10:08 100 MG Enoxaparin Sodium 40 mg DAILY SC 12/05/24 10:00 12/06/24 10:12 40 MG Clindamycin Phosphate 50 ml @ 50 mls/hr Q8HR IV 12/04/24 22:00 12/06/24 13:29 50 MLS/HR Propofol 100 ml @ 2.673 mls/ hr Q24H IV 12/04/24 18:15 12/06/24 13:40 18.711 MLS/HR Norepinephrine Bitartrate 250 ml @ 3.75 mls/hr Q24H IV 12/04/24 19:15 12/05/24 09:53 3.75 MLS/HR Lactulose 30 ml Q6HR GT 12/05/24 08:45 12/06/24 05:51 30 ML Polyethylene Glycol 17 gm DAILY PO 12/06/24 10:00 Haloperidol Lactate 5 mg Q8HP PRN IV 12/05/24 08:45 Quetiapine Fumarate 200 mg HS PO 12/05/24 22:00 12/05/24 22:15 200 MG Gabapentin 300 mg BID PO 12/05/24 22:00 12/06/24 10:11 300 MG Valproate Sodium 500 mg BID GT 12/05/24 22:00 12/06/24 10:12 500 MG Carbamazepine 400 mg BID GT 12/05/24 22:00 12/05/24 22:25 400 MG Examination General: RASS -5, afebrile, mucosae are moist Cardiovascular: Normal S1 and S2. No murmurs, gallops or rubs Respiratory: Mechanically assisted ventilation, equal bilateral airway entree. Clear lung sounds on auscultation Mechanical ventilation setting: GI: Soft, nontender, no organomegaly, normal bowel sounds : Orellana catheter n place, clear yellow urine in collection bag MSK/skin: Mobilization of limbs cannot be evaluated. Skin is dry and warm. IV accesses: A small 2 x 2 cm scab noticed at the heel of left leg Neurological: Orientation cannot be assessed. No apparent motor no sensitive deficits. Pupils are isocoric and reactive laboratory and microbiology Laboratory Tests 12/06/24 02:58 Test 12/06/24 02:58 Range/Units Serum Glucose 169 H 74-106 mg/dL Microbiology Date/Time Source Procedure Growth Status 12/02/24 14:31 Urine - Orellana Port Urine Culture - Final Complete 12/01/24 21:06 Nose MRSA Screen - Final Complete 12/01/24 17:06 Blood Blood Culture - Preliminary NO GROWTH AFTER 72 HOURS OF INCUBATION. Resulted 12/01/24 00:00 Sputum Endotracheal Wash Gram Stain - Final Complete 12/01/24 00:00 Respiratory Culture - Final Klebsiella pneumoniae Complete Problem List/Assessment/Plan Problem List/Assessment/Plan This is a 44-year-old male with past medical history of CVA, subdural hematoma, (status post DYNAMITE RECLAIMER shunt), depression, diabetes type 1, and bipolar disorder brought to the hospital due to nausea, vomiting, diarrhea and altered mental status. Had admitted with primary diagnosis of DKA/HHS. And had admitted and intubated on 12/01. NEURO: Acute metabolic encephalopathy, likely due to DKA/HHS/sepsis History of intracerebral hemorrhage, status post DYNAMITE RECLAIMER shunt Possible alcohol withdrawal History of epilepsy Bipolar disorder/depression * Head CT scan 12/01, no new intracranial abnormalities * RASS score -4 * Continue home meds: Keppra, oxygen carbamazepine, valproic acid, gabapentin, quetiapine * Plan: Versed, fentanyl and propofol CARDIOVASCULAR: Sinus tachycardia RESPIRATORY: Acute hypoxic respiratory failure, likely due to pneumonia Pneumonia, due to Klebsiella pneumoniae * Chest x-ray shows bilateral haziness, with prominent bronchovascular marking * MV setting: VC mode, TV 400, RR 20, FiO2 30%, peep 5 * Plan: Mechanical ventilation, breathing treatment and IV antibiotic, CPAP a.m. GENITOURINARY/FLUID: REYNALDO, likely VMN, resolved * Plan: IV fluid GASTROINTESTINAL/NUTRITION: Alcohol use disorder Possible alcohol withdrawal Possible refeeding syndrome * Plan: Thiamine, and folic acid INFECTIOUS DISEASE: Sepsis, likely due to pneumonia Pneumonia, due to Klebsiella pneumoniae Dental infection * Sputum culture 12/01, Klebsiella pneumoniae * Blood and urine culture 12/01, Shows no growth * Plan: Rocephin bracket 12/01), azithromycin (12/01) and clindamycin (12/04) HEMATOLOGY: Mild anemia, normocytic normochromic ENDOCRINE: Diabetes type 1 DKA/HHS * Plan: Lantus 15 units, ISS, sodium phosphate METABOLIC: Hypokalemia Hyponatremia Hypomagnesemia Hypophosphatemia Hyperphosphatemia MSK/SKIN: Skin scab, on the heel of left leg DIET: Glucerna DVT prophylax: Lovenox GI prophylaxis: Protonix Bowel regimen: Lactulose LINES/DEVICES ETT: Intubated on 12/01 IV access: Right IJ put on 12/01 Drips: Fentanyl, Versed and propofol Orellana catheter: Placed on 12/01 OG-tube: Disposition: Continue ICU status Family: Patients friends (Durga and Tristen) updated at the bedside. Critical care time: Spent > 83 min, spent in direct critical care, including evaluation, management, review of labs/imaging, and multidisciplinary/family discussions, (excluding any procedures). Case discussed with Dr. Valentino Plan discussed with: Other My Orders My Orders Orders - SEAN DE LOS SANTOS RESDIYANG Procedure Category Date Status Time Quetiapine Fumarate PHA 12/05/24 In Process Tablet (Seroquel Tab 22:00 Gabapentin Capsule PHA 12/05/24 In Process (Neurontin Capsule) 22:00 Abg W/ Co-Ox RT 12/05/24 Logged 15:53 Chest Xray 1 View XY 12/06/24 Resulted 04:00 Abg W/ Co-Ox RT 12/06/24 Logged 04:00 Valproic Acid Oral PHA 12/05/24 In Process Soln (Depakene Oral S 22:00 Respiratory Misc. RT 12/06/24 Transmitted Order 09:04 Cpap Trial For Am ORDERS 12/06/24 Transmitted 09:04 Dietary Evaluation Review Comments: 1) Initiate thiamin, folic acid, and MVI supplementation d/t recent ETOH abuse 2) If patient remains NPO > 7 days, consider EN/TPN to meet at least 75% of estimated daily needs 3) If GI is preferred, initiate Glucerna 1.2 @ 60 mL/hr goal rate as tolerated. Flush with 150 mL Q6H. TF regimen will provide 1728 kcals, 86g Pro, and 1759 mL free H2O (including flushes) per 24 hrs. Goal rate will meet ~87% estimated daily energy needs and ~72% estimated daily protein needs 4) Advance to 60g CCHO cardiac diet when medically feasible, pending ST approval 5) Collect HbA1c 6) Refer to outpatient RD/[facility] for diabetes education 7) Follow-up with cardiology, pulmonology, and psychiatry 8) Follow-up with criminal justice social worker r/t ETOH abuse 9) Continue to monitor I&O, labs, and skin integrity Expected Outcomes/Goals: 1) patient to receive nutritional support within 7 days of NPO status 2) labs and GI symptoms to improve 3) diet to advance 4) follow-up in 2-3 days Date of Service: Dec 06, 2024 Billing Provider: APRIL VALENTINO MD Common Visit Codes: [id number] CARE 30-74 MIN, [id number] CARE-EACH +30MIN SEAN DE LOS SANTOS Dec 06, 2024 15:59 APRIL VALENTINO MD Dec 07, 2024 11:02
[2024-12-06] MEDS: METOCLOPRAMIDE HCL 5MG/ml INJ 2ml VIAL IV ONE (16:32)
[2024-12-07] VITALS (109 sets, daily range): BP systolic 84–175; BP diastolic 51–119; PULSE 72–140; RESP 15–53; TEMP 34.7–47.7; O2SAT 85–100
[2024-12-07 03:49] LABS: Hematocrit 33.1 % (41.0-53.0); Hemoglobin 10.8 g/dL (13.5-17.5); Mean Corpuscular Hemoglobin 29.7 pg (28.0-32.0); Mean Corpuscular Volume 91.0 fL (80.0-100.0); Nucleated Red Blood Cells % 0.0 %
[2024-12-07 04:06] LABS: Alanine Aminotransferase 32 U/L (7-40); Albumin 3.4 g/dL (3.2-4.8); Anion Gap 11 (5-15); Calcium 8.7 mg/dL (8.7-10.4); Carbon Dioxide 25 mmol/L (20-31); Potassium 3.7 mmol/L (3.5-5.1); Total Protein 6.4 g/dL (5.7-8.2)
[2024-12-07 04:20] LABS: Alkaline Phosphatase 144 U/L (46-116); BUN/Creatinine Ratio 7.6 (10.0-20.0); Blood Urea Nitrogen < 5 mg/dL (9-23); Chloride 114 mmol/L (98-107); Glucose 143 mg/dL (74-106); Sodium 150 mmol/L (136-145)
[2024-12-07 04:21] LABS: Bilirubin, Total < 0.2 mg/dL (0.2-1.0)
[2024-12-07] MEDS: DEXMEDETOMIDINE HCL IN D5W 100 ML IV SCH (04:34)
--- NOTE | 2024-12-07 05:26 | DVH ---
CHEST RADIOGRAPH Indication: pnemonia Technique: Single frontal view of the chest was obtained COMPARISON: XY CHEST XRAY 1 VIEW on DOS: 12/06/24, XY CHEST XRAY 1 VIEW on DOS: 12/05/24, XY CHEST PORT ABLE on DOS: 12/04/24, XY CHEST PORTABLE on DOS: 12/03/24, XY CHEST PORTABLE on DOS: 12/02/24 FINDINGS: Lines and Tubes: Slight interval advancement of endotracheal tube such that the tip now projects appr oximately 5.5 cm above the level of the laci. Remaining lines and tubes unchanged. Lungs: Trace left pleural effusion and minimal bibasilar pulmonary airspace disease. No pneumothorax. Cardiomediastinal contours: Unremarkable Bones: Unremarkable IMPRESSION: 1. Slight interval advancement of endotracheal tube such that the tip now projects approximately 5.5 cm above the level of the laci. Remaining lines and tubes unchanged. 2. Trace left pleural effusion and minimal bibasilar pulmonary airspace disease.
[2024-12-07 08:06] LABS: Base Excess -0.7 mmol/L (-2.0-3.0)
[2024-12-07] MEDS: SODIUM CHLORIDE 0.9% 1,000 ML IV ONE (11:26)
[2024-12-07] MEDS: D5W 5% 1,000 ML IV ONE (11:27)
[2024-12-07] MEDS ORDERED: VANCOMYCIN PER PHARMACY 0 MG IV SCH (13:00)
[2024-12-07] MEDS: CEFEPIME 2GM/50ML NS 50 ML IV SCH (14:21)
[2024-12-07 15:14] LABS: INR 1.02 (0.9-1.15); Partial Thromboplastin Time 29.0 SEC (24.5-34.5); Prothrombin Time 10.8 sec (9.3-11.8)
[2024-12-07] MEDS: LIDOCAINE 1% (LOCAL ANESTH.) PF 5ml SDV ID ONE (16:45)
[2024-12-07] MEDS: VANCOMYCIN 1GM/250ML KIT 250 ML IV SCH (17:11)
[2024-12-07] MEDS: FREE WATER GT SCH (18:11)
--- NOTE | 2024-12-07 19:30 | DVHPNRES ---
Progress Note Date Seen: Dec 07, 2024 Resident Creating Document: SEAN DE LOS SANTOS RESDIENT Medical Necessity Reason Pt with a Central, PICC or Fol: Yes The following are medically ne: Orellana Catheter Subjective Review of Systems This is a 44-year-old male with past medical history of asthma, CVA, intracerebral hemorrhage, subdural hematoma, (status post [employer]ACLE [employer]CHIT[employer] shunt, 10 years back), depression, diabetes type 1, hypertension, seizure, bipolar disorder brought to the hospital due to altered mental status. Per patient's roommate, he has not been using his medicine since 1 week, and had developed nausea, vomiting and diarrhea since 3 days, and since 1 day has been altered. Denies fever, loss of consciousness, or any trauma. PMHx: asthma, CVA, intracerebral hemorrhage, subdural hematoma, (status post [employer]LE [employer]CHIT[employer] shunt, 10 years back), depression, diabetes type 1, hypertension, seizure, bipolar disorder PSHx: OR[employer]LE [employer] ARCHIT[employer] shunt (10 years back), had removed molar to 3 weeks back, had tracheostomy in 2019 (due to intracerebral hemorrhage) Social history: Smokes marijuana and drink heavy alcohol. Lives with friend at home. At baseline mobile, but does not work, on disability Home medication: Quetiapine, sertraline, gabapentin, insulin NPH, levetiracetam, oxcarbazepine, and hydroxyzine, noncompliant with the medicine Today, 12/07, Patient seen and examined at the bedside. Patient is sedated and on mechanical ventilation. Objective vital signs Vital Sign Date Time Temp Pulse Resp B/P (MAP) Pulse Ox O2 Delivery O2 Flow Rate FiO2 12/07/24 18:15 97.9 80 22 99/68 (78) 98 208.2 12/07/24 18:08 40 12/07/24 18:00 Mechanical Ventilator+ Total Intake and Output 12/06/24 12/06/24 12/07/24 15:00 23:00 07:00 Intake Total 1366.45 ml 745.295 ml 533.680 ml Output Total 2400 ml 1100 ml Balance 1366.45 ml -1654.705 ml -566.320 ml medications Current Medications Medications Dose Ordered Sig/Misa Route Start Time Stop Time Status Last Admin Dose Admin Midazolam HCl 50 ml @ 1 mls/hr Q24H IV 12/01/24 12:45 12/07/24 17:49 15 MLS/HR Dextrose 50 ml UD PRN IV 12/01/24 13:30 Cancel Insulin Glargine 15 units DAILY SC 12/02/24 10:00 Cancel Fentanyl Citrate 250 ml @ 2.5 mls/hr Q24H IV 12/01/24 16:30 12/07/24 18:10 30 MLS/HR Dextrose 50 ml UD PRN IV 12/01/24 16:45 Cancel Acetaminophen 650 mg Q6HP PRN PO 12/01/24 16:45 12/07/24 06:09 650 MG Famotidine 20 mg DAILY IV 12/02/24 10:00 12/07/24 11:25 20 MG Ipratropium [place] 0.5 mg Q4HR NEB 12/01/24 18:00 12/07/24 18:07 0.5 MG Albuterol 2.5 mg Q4HPRN PRN NEB 12/01/24 18:00 12/07/24 18:07 2.5 MG Diagnostic Test (Pha) 1 strip Q6HR 12/02/24 18:00 12/07/24 18:11 1 STRIP Insulin Human Regular Q6HR SC 12/02/24 18:00 12/07/24 18:08 9 UNITS Dextrose 50 ml UD PRN IV 12/02/24 15:45 Insulin Glargine 15 units DAILY@1000 SC 12/03/24 10:00 12/07/24 11:22 15 UNITS Lorazepam 1 mg Q5MINP PRN IV 12/03/24 01:45 12/03/24 03:43 1 MG Enteral Nutritional Formula 1,000 ml 40ML/HR GT 12/03/24 09:30 12/06/24 21:48 1,000 ML Levetiracetam 100 ml @ 400 mls/hr BID IV 12/03/24 10:00 UNV Levetiracetam 750 mg BID PO 12/03/24 10:00 12/07/24 11:19 750 MG Folic Acid 1 mg/ Dextrose 50.2 ml @ 200.8 mls/ hr DAILY INJ 12/05/24 10:00 12/07/24 11:25 200.8 MLS/HR Thiamine HCl 100 mg DAILY IV 12/05/24 10:00 12/07/24 11:25 100 MG Enoxaparin Sodium 40 mg DAILY SC 12/05/24 10:00 12/07/24 11:50 40 MG Propofol 100 ml @ 2.673 mls/ hr Q24H IV 12/04/24 18:15 12/07/24 14:21 26.73 MLS/HR Norepinephrine Bitartrate 250 ml @ 3.75 mls/hr Q24H IV 12/04/24 19:15 12/05/24 09:53 3.75 MLS/HR Lactulose 30 ml Q6HR GT 12/05/24 08:45 12/07/24 18:10 30 ML Polyethylene Glycol 17 gm DAILY PO 12/06/24 10:00 Haloperidol Lactate 5 mg Q8HP PRN IV 12/05/24 08:45 Quetiapine Fumarate 200 mg HS PO 12/05/24 22:00 12/06/24 21:29 200 MG Gabapentin 300 mg BID PO 12/05/24 22:00 12/07/24 11:19 300 MG Valproate Sodium 500 mg BID GT 12/05/24 22:00 12/07/24 11:18 500 MG Carbamazepine 400 mg BID GT 12/05/24 22:00 12/07/24 11:51 400 MG Metoclopramide HCl 10 mg Q8HPRN PRN IV 12/07/24 00:00 Cefepime HCl 50 ml @ 12.5 mls/hr Q8HR IV 12/07/24 14:00 12/07/24 14:21 12.5 MLS/HR Vancomycin HCl 0 ml @ 0 mls/hr UD IV 12/07/24 13:00 Purified Water 200 ml Q6HR GT 12/07/24 18:00 12/07/24 18:11 200 ML Sodium Chloride 10 ml QSHIFT@10,22 IV 12/07/24 22:00 Vancomycin HCl 250 ml @ 200 mls/hr Q12H IV 12/08/24 05:00 Examination General: RASS -5, afebrile, mucosae are moist Cardiovascular: Normal S1 and S2. No murmurs, gallops or rubs Respiratory: Mechanically assisted ventilation, equal bilateral airway entree. Clear lung sounds on auscultation Mechanical ventilation setting: GI: Soft, nontender, no organomegaly, normal bowel sounds : Orellana catheter n place, clear yellow urine in collection bag MSK/skin: Mobilization of limbs cannot be evaluated. Skin is dry and warm. IV accesses: A small 2 x 2 cm scab noticed at the heel of left leg Neurological: Orientation cannot be assessed. No apparent motor no sensitive deficits. Pupils are isocoric and reactive laboratory and microbiology Laboratory Tests 12/07/24 03:08 Test 12/07/24 03:08 Range/Units Serum Glucose 143 H 74-106 mg/dL Microbiology Date/Time Source Procedure Growth Status 12/02/24 14:31 Urine - Orellana Port Urine Culture - Final Complete 12/01/24 21:06 Nose MRSA Screen - Final Complete 12/01/24 17:06 Blood Blood Culture - Final NO GROWTH AFTER 5 DAYS OF INCUBATION. Complete 12/01/24 00:00 Sputum Endotracheal Wash Gram Stain - Final Complete 12/01/24 00:00 Respiratory Culture - Final Klebsiella pneumoniae Complete Labs and/or images reviewed: Labs reviewed by me Problem List/Assessment/Plan Problem List/Assessment/Plan This is a 44-year-old male with past medical history of CVA, subdural hematoma, (status post [employer]CH[employer] shunt), depression, diabetes type 1, and bipolar disorder brought to the hospital due to nausea, vomiting, diarrhea and altered mental status. Had admitted with primary diagnosis of DKA/HHS. And had admitted and intubated on 12/01. NEURO: Acute metabolic encephalopathy, likely due to DKA/HHS/sepsis History of intracerebral hemorrhage, status post [employer]LE [employer] shunt Possible alcohol withdrawal History of epilepsy Bipolar disorder/depression * Head CT scan 12/01, no new intracranial abnormalities * RASS score -4 * Continue home meds: Keppra, oxygen carbamazepine, valproic acid, gabapentin, quetiapine * Plan: Versed, fentanyl and propofol CARDIOVASCULAR: Sinus tachycardia RESPIRATORY: Acute hypoxic respiratory failure, likely due to pneumonia Pneumonia, due to Klebsiella pneumoniae * Chest x-ray shows bilateral haziness, with prominent bronchovascular marking * MV setting: VC mode, TV 400, RR 20, FiO2 30%, peep 5 * Plan: Mechanical ventilation, breathing treatment and IV antibiotic, CPAP a.m. GENITOURINARY/FLUID: REYNALDO, likely VMN, resolved * Plan: IV fluid GASTROINTESTINAL/NUTRITION: Alcohol use disorder Possible alcohol withdrawal Possible refeeding syndrome * Plan: Thiamine, and folic acid INFECTIOUS DISEASE: Sepsis, likely due to pneumonia Pneumonia, due to Klebsiella pneumoniae Dental infection * Sputum culture 12/01, Klebsiella pneumoniae * Blood and urine culture 12/01, Shows no growth * Plan: Rocephin bracket 12/01), azithromycin (12/01) and clindamycin (12/04) HEMATOLOGY: Mild anemia, normocytic normochromic ENDOCRINE: Diabetes type 1 DKA/HHS * Plan: Lantus 15 units, ISS, sodium phosphate METABOLIC: Hypokalemia Hyponatremia Hypomagnesemia Hypophosphatemia Hyperphosphatemia MSK/SKIN: Skin scab, on the heel of left leg DIET: Glucerna DVT prophylax: Lovenox GI prophylaxis: Protonix Bowel regimen: Lactulose LINES/DEVICES ETT: Intubated on 12/01 IV access: Right IJ put on 12/01, removed on 11/07, PICC line placed on 11/07 Drips: Fentanyl, Versed and propofol Orellana catheter: Placed on 12/01 OG-tube: Disposition: Continue ICU status Family: Patients friends (Durga and Tristen) updated at the bedside. Critical care time: Spent > 83 min, spent in direct critical care, including evaluation, management, review of labs/imaging, and multidisciplinary/family discussions, (excluding any procedures). Case discussed with Dr. Valentino Plan discussed with: Patient My Orders My Orders Orders - SEAN DE LOS SANTOS RESYOHAN Procedure Category Date Status Time Cpap Trial For Am ORDERS 12/07/24 Transmitted 02:01 Blood Culture ALIA 12/07/24 In Process 09:47 Cefepime 2gm/50ml Ns PHA 12/07/24 In Process (Maxipime 2gm/50ml) 14:00 Vancomycin Per PHA 12/07/24 In Process Pharmacy 13:00 Complete Blood Count LAB 12/08/24 Verified 04:00 Comprehensive LAB 12/08/24 Verified Metabolic Panel 04:00 Chest Xray 1 View XY 12/08/24 Logged 04:00 Abg W/ Co-Ox RT 12/08/24 Logged 04:00 Free Water PHA 12/07/24 In Process 18:00 Vancomycin 1gm/250ml PHA 12/08/24 In Process Kit 05:00 Vancomycin,Trough LAB 12/09/24 Verified 16:00 Vancomycin Per EKITH 12/08/24 In Process Pharmacy Protoc 05:00 Dietary Evaluation Review Comments: 1) Initiate thiamin, folic acid, and MVI supplementation d/t recent ETOH abuse 2) If patient remains NPO > 7 days, consider EN/TPN to meet at least 75% of estimated daily needs 3) If GI is preferred, initiate Glucerna 1.2 @ 60 mL/hr goal rate as tolerated. Flush with 150 mL Q6H. TF regimen will provide 1728 kcals, 86g Pro, and 1759 mL free H2O (including flushes) per 24 hrs. Goal rate will meet ~87% estimated daily energy needs and ~72% estimated daily protein needs 4) Advance to 60g CCHO cardiac diet when medically feasible, pending ST approval 5) Collect HbA1c 6) Refer to outpatient RD/CDCES for diabetes education 7) Follow-up with cardiology, pulmonology, and psychiatry 8) Follow-up with health social work professor r/t ETOH abuse 9) Continue to monitor I&O, labs, and skin integrity Expected Outcomes/Goals: 1) patient to receive nutritional support within 7 days of NPO status 2) labs and GI symptoms to improve 3) diet to advance 4) follow-up in 2-3 days Date of Service: Dec 07, 2024 Billing Provider: APRIL VALENTINO MD Common Visit Codes: [id number] CARE 30-74 MIN, [id number] CARE-EACH +30MIN SEAN DE LOS SANTOS Dec 07, 2024 19:30 APRIL VALENTINO MD Dec 09, 2024 11:33
[2024-12-07] MEDS: SODIUM CHLOR 0.9% PF (SALINE LOCK) 10ML VIAL/SYR IV SCH (21:36)
[2024-12-08] VITALS (108 sets, daily range): BP systolic 84–137; BP diastolic 43–92; PULSE 64–116; RESP 15–27; TEMP 97.3–100.3; O2SAT 85–100
[2024-12-08 04:21] LABS: Hematocrit 29.4 % (41.0-53.0); Hemoglobin 10.0 g/dL (13.5-17.5); Mean Corpuscular Hemoglobin 30.6 pg (28.0-32.0); Mean Corpuscular Volume 90.3 fL (80.0-100.0); Nucleated Red Blood Cells % 0.1 %
[2024-12-08] MEDS: VANCOMYCIN 1GM/250ML KIT 250 ML IV SCH (04:35)
[2024-12-08 04:40] LABS: Alanine Aminotransferase 26 U/L (7-40); Anion Gap 11 (5-15); Carbon Dioxide 25 mmol/L (20-31); Potassium 3.6 mmol/L (3.5-5.1); Total Protein 5.9 g/dL (5.7-8.2)
[2024-12-08 05:11] LABS: Albumin 3.1 g/dL (3.2-4.8); Alkaline Phosphatase 138 U/L (46-116); BUN/Creatinine Ratio 8.2 (10.0-20.0); Bilirubin, Total < 0.2 mg/dL (0.2-1.0); Blood Urea Nitrogen < 5 mg/dL (9-23); Calcium 8.3 mg/dL (8.7-10.4); Chloride 110 mmol/L (98-107); Glucose 145 mg/dL (74-106); Sodium 146 mmol/L (136-145)
--- NOTE | 2024-12-08 05:41 | DVH ---
CHEST RADIOGRAPH Indication: Pneumonia Technique: Single frontal view of the chest was obtained COMPARISON: XY CHEST XRAY 1 VIEW on DOS: 12/07/24, XY CHEST XRAY 1 VIEW on DOS: 12/06/24, XY CHEST XRAY 1 VIEW on DOS: 12/05/24, XY CHEST PORTABLE on DOS: 12/04/24, XY CHEST PORTABLE on DOS: 12/03/24 FINDINGS: Lines and Tubes: Endotracheal tube, enteric catheter, right PICC in satisfactory position. Lungs: Pulmonary vascular congestion, unchanged. Pleura: Small left pleural effusion.No pneumothorax. Cardiomediastinal contours: Unremarkable. Bones: Unremarkable. IMPRESSION: Lines and tubes in satisfactory position. No significant interval change.
[2024-12-08 09:30] LABS: Base Excess -1.5 mmol/L (-2.0-3.0)
[2024-12-08] MEDS: EUCERIN CREAM 2OZ TUBE TOP ONE (15:00)
--- NOTE | 2024-12-08 15:04 | DVHPNRES ---
Progress Note Date Seen: Dec 08, 2024 Resident Creating Document: SEAN DE LOS SANTOS RESDIENT Medical Necessity Reason Pt with a Central, PICC or Fol: Yes The following are medically ne: Orellana Catheter Subjective Review of Systems This is a 44-year-old male with past medical history of asthma, CVA, intracerebral hemorrhage, subdural hematoma, (status post [employer]OM[employer] shunt, 10 years back), depression, diabetes type 1, hypertension, seizure, bipolar disorder brought to the hospital due to altered mental status. Per patient's roommate, he has not been using his medicine since 1 week, and had developed nausea, vomiting and diarrhea since 3 days, and since 1 day has been altered. Denies fever, loss of consciousness, or any trauma. PMHx: asthma, CVA, intracerebral hemorrhage, subdural hematoma, (status post [employer] shunt, 10 years back), depression, diabetes type 1, hypertension, seizure, bipolar disorder PSHx: [employer]OM[employer] shunt (10 years back), had removed molar to 3 weeks back, had tracheostomy in 2019 (due to intracerebral hemorrhage) Social history: Smokes marijuana and drink heavy alcohol. Lives with friend at home. At baseline mobile, but does not work, on disability Home medication: Quetiapine, sertraline, gabapentin, insulin NPH, levetiracetam, oxcarbazepine, and hydroxyzine, noncompliant with the medicine Today, 12/08, Patient seen and examined at the bedside. Patient is sedated and on mechanical ventilation. Objective vital signs Vital Sign Date Time Temp Pulse Resp B/P (MAP) Pulse Ox O2 Delivery O2 Flow Rate FiO2 12/08/24 14:13 78 22 105/73 (84) 98 35 12/08/24 14:00 Mechanical Ventilator+ 12/08/24 12:00 98.2 98.2 Total Intake and Output 12/07/24 12/07/24 12/08/24 15:00 23:00 07:00 Intake Total 2036.783 ml 2078.027 ml 1290.440 ml Output Total 925 ml 1100 ml Balance 2036.783 ml 1153.027 ml 190.440 ml medications Current Medications Medications Dose Ordered Sig/Misa Route Start Time Stop Time Status Last Admin Dose Admin Midazolam HCl 50 ml @ 1 mls/hr Q24H IV 12/01/24 12:45 12/08/24 13:55 15 MLS/HR Dextrose 50 ml UD PRN IV 12/01/24 13:30 Cancel Insulin Glargine 15 units DAILY SC 12/02/24 10:00 Cancel Fentanyl Citrate 250 ml @ 2.5 mls/hr Q24H IV 12/01/24 16:30 12/08/24 09:20 35 MLS/HR Dextrose 50 ml UD PRN IV 12/01/24 16:45 Cancel Acetaminophen 650 mg Q6HP PRN PO 12/01/24 16:45 12/07/24 06:09 650 MG Famotidine 20 mg DAILY IV 12/02/24 10:00 12/08/24 10:43 20 MG Ipratropium [place] 0.5 mg Q4HR NEB 12/01/24 18:00 12/08/24 14:07 0.5 MG Albuterol 2.5 mg Q4HPRN PRN NEB 12/01/24 18:00 12/07/24 22:04 2.5 MG Diagnostic Test (Pha) 1 strip Q6HR 12/02/24 18:00 12/08/24 12:52 1 STRIP Insulin Human Regular Q6HR SC 12/02/24 18:00 12/08/24 05:54 3 UNITS Dextrose 50 ml UD PRN IV 12/02/24 15:45 Insulin Glargine 15 units DAILY@1000 SC 12/03/24 10:00 12/08/24 10:55 15 UNITS Lorazepam 1 mg Q5MINP PRN IV 12/03/24 01:45 12/03/24 03:43 1 MG Enteral Nutritional Formula 1,000 ml 40ML/HR GT 12/03/24 09:30 12/06/24 21:48 1,000 ML Levetiracetam 100 ml @ 400 mls/hr BID IV 12/03/24 10:00 UNV Levetiracetam 750 mg BID PO 12/03/24 10:00 12/08/24 10:45 750 MG Folic Acid 1 mg/ Dextrose 50.2 ml @ 200.8 mls/ hr DAILY INJ 12/05/24 10:00 12/08/24 10:41 200.8 MLS/HR Thiamine HCl 100 mg DAILY IV 12/05/24 10:00 12/08/24 10:43 100 MG Enoxaparin Sodium 40 mg DAILY SC 12/05/24 10:00 12/08/24 10:45 40 MG Propofol 100 ml @ 2.673 mls/ hr Q24H IV 12/04/24 18:15 12/08/24 10:46 24.057 MLS/HR Norepinephrine Bitartrate 250 ml @ 3.75 mls/hr Q24H IV 12/04/24 19:15 12/07/24 21:28 3.75 MLS/HR Lactulose 30 ml Q6HR GT 12/05/24 08:45 12/08/24 12:52 30 ML Polyethylene Glycol 17 gm DAILY PO 12/06/24 10:00 Haloperidol Lactate 5 mg Q8HP PRN IV 12/05/24 08:45 Quetiapine Fumarate 200 mg HS PO 12/05/24 22:00 12/07/24 21:35 200 MG Gabapentin 300 mg BID PO 12/05/24 22:00 12/08/24 10:45 300 MG Valproate Sodium 500 mg BID GT 12/05/24 22:00 12/08/24 10:38 500 MG Carbamazepine 400 mg BID GT 12/05/24 22:00 12/08/24 10:40 400 MG Metoclopramide HCl 10 mg Q8HPRN PRN IV 12/07/24 00:00 Cefepime HCl 50 ml @ 12.5 mls/hr Q8HR IV 12/07/24 14:00 12/08/24 13:54 12.5 MLS/HR Vancomycin HCl 0 ml @ 0 mls/hr UD IV 12/07/24 13:00 Purified Water 200 ml Q6HR GT 12/07/24 18:00 12/08/24 12:53 200 ML Sodium Chloride 10 ml QSHIFT@10,22 IV 12/07/24 22:00 12/08/24 10:00 10 ML Vancomycin HCl 250 ml @ 200 mls/hr Q12H IV 12/08/24 05:00 12/08/24 04:35 200 MLS/HR Examination General: RASS -5, afebrile, mucosae are moist Cardiovascular: Normal S1 and S2. No murmurs, gallops or rubs Respiratory: Mechanically assisted ventilation, equal bilateral airway entree. Clear lung sounds on auscultation Mechanical ventilation setting: GI: Soft, nontender, no organomegaly, normal bowel sounds : Orellana catheter n place, clear yellow urine in collection bag MSK/skin: Mobilization of limbs cannot be evaluated. Skin is dry and warm. IV accesses: A small 2 x 2 cm scab noticed at the heel of left leg Neurological: Orientation cannot be assessed. No apparent motor no sensitive deficits. Pupils are isocoric and reactive laboratory and microbiology Laboratory Tests 12/08/24 02:46 Test 12/08/24 02:46 Range/Units Serum Glucose 145 H 74-106 mg/dL Microbiology Date/Time Source Procedure Growth Status 12/07/24 10:20 Blood Blood Culture - Preliminary NO GROWTH AFTER 24 HOURS OF INCUBATION. Resulted 12/02/24 14:31 Urine - Orellana Port Urine Culture - Final Complete 12/01/24 21:06 Nose MRSA Screen - Final Complete 12/01/24 00:00 Sputum Endotracheal Wash Gram Stain - Final Complete 12/01/24 00:00 Respiratory Culture - Final Klebsiella pneumoniae Complete Labs and/or images reviewed: Image(s) reviewed by me Problem List/Assessment/Plan Problem List/Assessment/Plan This is a 44-year-old male with past medical history of CVA, subdural hematoma, (status post [employer] shunt), depression, diabetes type 1, and bipolar disorder brought to the hospital due to nausea, vomiting, diarrhea and altered mental status. Had admitted with primary diagnosis of DKA/HHS. And had admitted and intubated on 12/01. NEURO: Acute metabolic encephalopathy, likely due to DKA/HHS/sepsis History of intracerebral hemorrhage, status post [employer] shunt Possible alcohol withdrawal History of epilepsy Bipolar disorder/depression * Head CT scan 12/01, no new intracranial abnormalities * RASS score -4 * Continue home meds: Keppra, oxygen carbamazepine, valproic acid, gabapentin, quetiapine * Plan: Versed, fentanyl and propofol CARDIOVASCULAR: Sinus tachycardia RESPIRATORY: Acute hypoxic respiratory failure, likely due to pneumonia Pneumonia, due to Klebsiella pneumoniae * Chest x-ray shows bilateral haziness, with prominent bronchovascular marking * MV setting: VC mode, TV 400, RR 20, FiO2 30%, peep 5 * Plan: Mechanical ventilation, breathing treatment and IV antibiotic, CPAP a.m. GENITOURINARY/FLUID: REYNALDO, likely VMN, resolved * Plan: IV fluid GASTROINTESTINAL/NUTRITION: Alcohol use disorder Possible alcohol withdrawal Possible refeeding syndrome * Plan: Thiamine, and folic acid INFECTIOUS DISEASE: Sepsis, likely due to pneumonia Pneumonia, due to Klebsiella pneumoniae Dental infection * Sputum culture 12/01, Klebsiella pneumoniae * Blood and urine culture 12/01, Shows no growth * Discontinued Rocephin (12/01-12/06), azithromycin (12/01-12/06) and clindamycin (12/04-12/06) * Plan: Continue vancomycin (12/06), and cefepime (12/07) HEMATOLOGY: Mild anemia, normocytic normochromic ENDOCRINE: Diabetes type 1 DKA/HHS * Plan: Lantus 15 units, ISS, sodium phosphate METABOLIC: Hypokalemia Hyponatremia Hypomagnesemia Hypophosphatemia Hyperphosphatemia MSK/SKIN: Skin scab, on the heel of left leg New skin eruptions (xerosis/seborrheic dermatitis, possibly due to ICU related skin dryness), possible drug eruption or infection related * New erythematous/scaly rashes noted on checks, face and neck, no parts of body and mucosal involvement, patient is sedated and can not report any symptoms * Plan: Eucerin cream, monitoring eosinophils DIET: Glucerna DVT prophylax: Lovenox GI prophylaxis: Protonix Bowel regimen: Lactulose LINES/DEVICES ETT: Intubated on 12/01 IV access: PICC line placed on 11/07 Drips: Fentanyl, Versed and propofol Orellana catheter: Placed on 12/01 OG-tube: Disposition: Continue ICU status Family: Patients friends (Durga and Tristen) updated at the bedside. Critical care time: Spent > 83 min, spent in direct critical care, including evaluation, management, review of labs/imaging, and multidisciplinary/family discussions, (excluding any procedures). Case discussed with Dr. Porter Plan discussed with: Other My Orders My Orders Orders - SEAN DE LOS SANTOS Procedure Category Date Status Time Vancomycin 1gm/250ml PHA 12/08/24 In Process Kit 05:00 Vancomycin,Trough LAB 12/09/24 Verified 16:00 Vancomycin Per KEITH 12/08/24 In Process Pharmacy Protoc 05:00 Complete Blood Count LAB 12/09/24 Verified 04:00 Creatinine LAB 12/09/24 Verified 04:00 Dietary Evaluation Review Comments: 1) Initiate thiamin, folic acid, and MVI supplementation d/t recent ETOH abuse 2) If patient remains NPO > 7 days, consider EN/TPN to meet at least 75% of estimated daily needs 3) If GI is preferred, initiate Glucerna 1.2 @ 60 mL/hr goal rate as tolerated. Flush with 150 mL Q6H. TF regimen will provide 1728 kcals, 86g Pro, and 1759 mL free H2O (including flushes) per 24 hrs. Goal rate will meet ~87% estimated daily energy needs and ~72% estimated daily protein needs 4) Advance to 60g CCHO cardiac diet when medically feasible, pending ST approval 5) Collect HbA1c 6) Refer to outpatient RD/[facility] for diabetes education 7) Follow-up with cardiology, pulmonology, and psychiatry 8) Follow-up with social media marketing manager r/t ETOH abuse 9) Continue to monitor I&O, labs, and skin integrity Expected Outcomes/Goals: 1) patient to receive nutritional support within 7 days of NPO status 2) labs and GI symptoms to improve 3) diet to advance 4) follow-up in 2-3 days Date of Service: Dec 08, 2024 Billing Provider: BRANNON CARR MD Common Visit Codes: NOT BILLABLE SEAN DE LOS SANTOS Dec 08, 2024 15:04 BRANNON CARR MD Dec 21, 2024 16:29
[2024-12-08] MEDS ORDERED: METOCLOPRAMIDE HCL 5MG/ml INJ 2ml VIAL IV PRN (19:30)
[2024-12-08] MEDS: METOCLOPRAMIDE HCL 5MG/ml INJ 2ml VIAL IV PRN (20:08)
[2024-12-09] VITALS (104 sets, daily range): BP systolic 83–169; BP diastolic 38–96; PULSE 64–92; RESP 14–32; TEMP 96.8–99.9; O2SAT 90–100
[2024-12-09 04:27] LABS: Hematocrit 31.0 % (41.0-53.0); Hemoglobin 10.5 g/dL (13.5-17.5); Mean Corpuscular Hemoglobin 30.8 pg (28.0-32.0); Mean Corpuscular Volume 90.9 fL (80.0-100.0); Nucleated Red Blood Cells % 0.2 %
[2024-12-09 04:47] LABS: Anion Gap 11 (5-15); Carbon Dioxide 26 mmol/L (20-31); Potassium 4.0 mmol/L (3.5-5.1); Total Protein 6.1 g/dL (5.7-8.2)
[2024-12-09 04:49] LABS: Alanine Aminotransferase 41 U/L (7-40); Albumin 3.1 g/dL (3.2-4.8); Alkaline Phosphatase 193 U/L (46-116); BUN/Creatinine Ratio 8.3 (10.0-20.0); Bilirubin, Total 0.2 mg/dL (0.2-1.0); Blood Urea Nitrogen < 5 mg/dL (9-23); Calcium 8.7 mg/dL (8.7-10.4); Chloride 112 mmol/L (98-107); Glucose 125 mg/dL (74-106); Sodium 149 mmol/L (136-145)
--- NOTE | 2024-12-09 05:43 | DVH ---
CHEST RADIOGRAPH Indication: Pneumonia Technique: Single frontal view of the chest was obtained COMPARISON: XY CHEST XRAY 1 VIEW on DOS: 12/08/24, XY CHEST XRAY 1 VIEW on DOS: 12/07/24, XY CHEST XRAY 1 VIEW on DOS: 12/06/24, XY CHEST XRAY 1 VIEW on DOS: 12/05/24, XY CHEST PORTABLE on DOS: 12/04/24 FINDINGS: Lines and Tubes: Slight interval retraction of the endotracheal tube such that the tip now projects a pproximately 6.9 cm above the level of the laci. Remaining lines and tubes unchanged. Lungs: Trace left pleural effusion unchanged. The lungs are otherwise clear. No pneumothorax. Cardiomediastinal contours: Unremarkable Bones: Unremarkable IMPRESSION: 1. Slight interval retraction of the endotracheal tube such that the tip now projects approximately 6 .9 cm above the level of the laci. Remaining lines and tubes unchanged. 2. Stable small left pleural effusion.
[2024-12-09 07:14] LABS: Base Excess 0.5 mmol/L (-2.0-3.0)
[2024-12-09] MEDS: EUCERIN CREAM 2OZ TUBE TOP SCH (09:30)
--- NOTE | 2024-12-09 17:06 | DVHPN2 ---
Subjective Assuming the care of the patient from today onwards who was under the care of the hospitalist team. Chart reviewed plan of care discussed with the bedside RN. Patient's remains intubated and sedated. Reviewed: Care Plan, H&P, Labs, Medications, Previous Orders, Radiology Changes from previous H/P or p: No Changes Objective Vitals Vital Signs Date Time Temp Pulse Resp B/P (MAP) Pulse Ox O2 Delivery O2 Flow Rate FiO2 12/09/24 15:58 106/68 12/09/24 15:50 74 22 94 30 12/09/24 14:45 97.9 208.2 12/09/24 14:00 Mechanical Ventilator+ Intake/Output Intake and Output 12/09/24 07:00 Intake Total 3414.565 ml Output Total 3000 ml Balance 414.565 ml Intake Oral 600 ml IV Total 2573.565 ml Tube Feeding 241 ml Output Urine Total 2850 ml Stool Total 150 ml Exam HEENT pupils are reactive Neck is supple CV is S1-S2 regular rate and rhythm Respiratory diminished breath sounds bilateral lung bases GI positive bowel sounds Extremity no edema 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 General Appearance: Other (vent) HEENT: Atraumatic, PERRLA Lungs: Other (On vent; few crackles) Cardiovascular: Other (border tachy) Abdomen: Normal bowel sounds Medications Current Medications Medications Dose Ordered Sig/Misa Route Start Time Stop Time Status Last Admin Dose Admin Midazolam HCl 50 ml @ 1 mls/hr Q24H IV 12/01/24 12:45 12/09/24 15:58 15 MLS/HR Dextrose 50 ml UD PRN IV 12/01/24 13:30 Cancel Insulin Glargine 15 units DAILY SC 12/02/24 10:00 Cancel Fentanyl Citrate 250 ml @ 2.5 mls/hr Q24H IV 12/01/24 16:30 12/09/24 12:56 35 MLS/HR Dextrose 50 ml UD PRN IV 12/01/24 16:45 Cancel Acetaminophen 650 mg Q6HP PRN PO 12/01/24 16:45 12/07/24 06:09 650 MG Famotidine 20 mg DAILY IV 12/02/24 10:00 12/09/24 09:28 20 MG Ipratropium [place] 0.5 mg Q4HR NEB 12/01/24 18:00 12/09/24 14:30 0.5 MG Albuterol 2.5 mg Q4HPRN PRN NEB 12/01/24 18:00 12/09/24 14:30 2.5 MG Diagnostic Test (Pha) 1 strip Q6HR 12/02/24 18:00 12/09/24 11:55 1 STRIP Insulin Human Regular Q6HR SC 12/02/24 18:00 12/09/24 12:56 3 UNITS Dextrose 50 ml UD PRN IV 12/02/24 15:45 Insulin Glargine 15 units DAILY@1000 SC 12/03/24 10:00 12/09/24 10:49 15 UNITS Lorazepam 1 mg Q5MINP PRN IV 12/03/24 01:45 12/03/24 03:43 1 MG Enteral Nutritional Formula 1,000 ml 40ML/HR GT 12/03/24 09:30 12/06/24 21:48 1,000 ML Levetiracetam 100 ml @ 400 mls/hr BID IV 12/03/24 10:00 UNV Levetiracetam 750 mg BID PO 12/03/24 10:00 12/09/24 09:26 750 MG Folic Acid 1 mg/ Dextrose 50.2 ml @ 200.8 mls/ hr DAILY INJ 12/05/24 10:00 12/09/24 09:29 200.8 MLS/HR Thiamine HCl 100 mg DAILY IV 12/05/24 10:00 12/09/24 09:28 100 MG Enoxaparin Sodium 40 mg DAILY SC 12/05/24 10:00 12/09/24 09:28 40 MG Propofol 100 ml @ 2.673 mls/ hr Q24H IV 12/04/24 18:15 12/09/24 10:47 26.73 MLS/HR Norepinephrine Bitartrate 250 ml @ 3.75 mls/hr Q24H IV 12/04/24 19:15 12/09/24 12:58 3.75 MLS/HR Lactulose 30 ml Q6HR GT 12/05/24 08:45 12/09/24 12:53 30 ML Polyethylene Glycol 17 gm DAILY PO 12/06/24 10:00 12/09/24 09:26 17 GM Haloperidol Lactate 5 mg Q8HP PRN IV 12/05/24 08:45 Quetiapine Fumarate 200 mg HS PO 12/05/24 22:00 12/08/24 21:24 200 MG Gabapentin 300 mg BID PO 12/05/24 22:00 12/09/24 09:26 300 MG Valproate Sodium 500 mg BID GT 12/05/24 22:00 12/09/24 09:26 500 MG Carbamazepine 400 mg BID GT 12/05/24 22:00 12/09/24 09:27 400 MG Metoclopramide HCl 10 mg Q8HPRN PRN IV 12/07/24 00:00 12/09/24 10:47 10 MG Cefepime HCl 50 ml @ 12.5 mls/hr Q8HR IV 12/07/24 14:00 12/09/24 15:10 12.5 MLS/HR Vancomycin HCl 0 ml @ 0 mls/hr UD IV 12/07/24 13:00 Purified Water 200 ml Q6HR GT 12/07/24 18:00 12/09/24 11:55 200 ML Sodium Chloride 10 ml QSHIFT@10,22 IV 12/07/24 22:00 12/09/24 09:29 10 ML Vancomycin HCl 250 ml @ 200 mls/hr Q12H IV 12/08/24 05:00 12/09/24 05:22 200 MLS/HR Multi-Ingredient Ointment 1 applic DAILY TOP 12/09/24 10:00 12/09/24 09:30 1 APPLIC Metoclopramide HCl 10 mg Q8HPRN PRN IV 12/08/24 19:30 Laboratory Results Laboratory Tests 12/09/24 02:45 Chemistry Test 12/09/24 02:45 Albumin 3.1 g/dL (3.2-4.8) L Calcium Level 8.7 mg/dL (8.7-10.4) Total Protein 6.1 g/dL (5.7-8.2) LFT Test 12/09/24 02:45 Alanine Aminotransferase (ALT) 41 U/L (7-40) H Alkaline Phosphatase 193 U/L (46-116) H Aspartate Amino Transferase (AST) 70 U/L (13-40) H Total Bilirubin 0.2 mg/dL (0.2-1.0) Urinalysis Test 12/01/24 00:00 12/02/24 14:31 Urine Mucus Few (None Seen) Urine Color Colorless (Yellow) Urine Clarity Turbid (Clear) H Urine pH 6.0 (5.0-9.0) Urine Specific [place] 1.011 (1.001-1.035) Urine Protein Negative (Negative) Urine Ketones Trace (Negative) Urine Blood 2+ /uL (Negative) H Urine Nitrite Negative (Negative) Urine Bilirubin Negative (Negative) Urine Urobilinogen Normal mg/dL (Negative) Urine Leukocyte Esterase 3+ /uL (Negative) Urine RBC 14 /hpf (0 - 3) Urine Microscopic WBC 30 /HPF (0-3) H Urine Squamous Epithelial Cells Few /hpf (<5) Urine Bacteria Few /hpf (None Seen) H Urine Glucose Normal mg/dL (Normal) Blood Gas Results Test 12/09/24 07:00 Arterial Blood pH 7.336 (7.350-7.450) FiO2 % 45.0 Microbiology Microbiology Date/Time Source Procedure Growth Status 12/07/24 10:20 Blood Blood Culture - Preliminary NO GROWTH AFTER 48 HOURS OF INCUBATION. Resulted 12/02/24 14:31 Urine - [place] Urine Culture - Final Complete 12/01/24 21:06 Nose MRSA Screen - Final Complete 12/01/24 00:00 Sputum Endotracheal Wash Gram Stain - Final Complete 12/01/24 00:00 Respiratory Culture - Final Klebsiella pneumoniae Complete Assessment/Plan Assessment/Plan This is a 44-year-old male with a known history of CVA, intracerebral hemorrhage in the past, subdural hematoma status post SUPER[employer] shunt, anxiety and depression disorder, diabetes mellitus type 1, schizophrenia/bipolar disorder, seizure disorder, who was brought to the hospital with nausea and vomiting diarrhea and altered mental status eventually was found to have acute hypoxic respiratory failure requiring intubation and ventilator support as well as insulin drip for diabetic ketoacidosis. 1. Acute hypoxic respiratory failure requiring intubation and vent support 2. Klebsiella pneumoniae 3. Diabetic ketoacidosis currently off of insulin drip 4. Acute metabolic encephalopathy 5. Hypernatremia currently on free water 6. Seizure disorder 7. Bipolar/schizophrenia 8. Anxiety and depression disorder 9. History of subdural hematoma status post [employer] shunt 10. Chronic alcoholism 11. Chronic tobacco use disorder 12. Marijuana use -continue vent support, daily ABG, chest x-ray, tube feeding, insulin sliding scale and long-acting insulin -continue current antibiotics. Patient remains critical prognosis remains guarded. Plan discussed with: Other Date of Service: Dec 09, 2024 Billing Provider: MARILEE MORE MD Common Visit Codes: [id number] INP/OBS CARE(HIGH) MARILEE MORE MD Dec 09, 2024 17:06
[2024-12-09] MEDS: VANCOMYCIN 1GM/250ML KIT 250 ML IV SCH (17:24)
--- NOTE | 2024-12-09 18:32 | DVHPN2 ---
Progress Note - Dictate Date Seen: Dec 09, 2024 Medical Necessity Reason Pt with a Central, PICC or Fol: Yes The following are medically ne: [place] Catheter vital signs Vital Sign Date Time Temp Pulse Resp B/P (MAP) Pulse Ox O2 Delivery O2 Flow Rate FiO2 12/09/24 18:06 71 22 109/65 (80) 94 30 12/09/24 18:00 Mechanical Ventilator+ 12/09/24 17:45 98.6 209.5 Total Intake and Output 12/08/24 12/08/24 12/09/24 15:00 23:00 07:00 Intake Total 652.040 ml 1409.585 ml 1352.940 ml Output Total 1225 ml 1775 ml Balance 652.040 ml 184.585 ml -422.060 ml medications Current Medications Medications Dose Ordered Sig/Misa Route Start Time Stop Time Status Last Admin Dose Admin Midazolam HCl 50 ml @ 1 mls/hr Q24H IV 12/01/24 12:45 12/09/24 15:58 15 MLS/HR Dextrose 50 ml UD PRN IV 12/01/24 13:30 Cancel Insulin Glargine 15 units DAILY SC 12/02/24 10:00 Cancel Fentanyl Citrate 250 ml @ 2.5 mls/hr Q24H IV 12/01/24 16:30 12/09/24 12:56 35 MLS/HR Dextrose 50 ml UD PRN IV 12/01/24 16:45 Cancel Acetaminophen 650 mg Q6HP PRN PO 12/01/24 16:45 12/07/24 06:09 650 MG Famotidine 20 mg DAILY IV 12/02/24 10:00 12/09/24 09:28 20 MG Ipratropium [place] 0.5 mg Q4HR NEB 12/01/24 18:00 12/09/24 18:03 0.5 MG Albuterol 2.5 mg Q4HPRN PRN NEB 12/01/24 18:00 12/09/24 14:30 2.5 MG Diagnostic Test (Pha) 1 strip Q6HR 12/02/24 18:00 12/09/24 18:06 1 STRIP Insulin Human Regular Q6HR SC 12/02/24 18:00 12/09/24 18:14 3 UNITS Dextrose 50 ml UD PRN IV 12/02/24 15:45 Insulin Glargine 15 units DAILY@1000 SC 12/03/24 10:00 12/09/24 10:49 15 UNITS Lorazepam 1 mg Q5MINP PRN IV 12/03/24 01:45 12/03/24 03:43 1 MG Enteral Nutritional Formula 1,000 ml 40ML/HR GT 12/03/24 09:30 12/06/24 21:48 1,000 ML Levetiracetam 100 ml @ 400 mls/hr BID IV 12/03/24 10:00 UNV Levetiracetam 750 mg BID PO 12/03/24 10:00 12/09/24 09:26 750 MG Folic Acid 1 mg/ Dextrose 50.2 ml @ 200.8 mls/ hr DAILY INJ 12/05/24 10:00 12/09/24 09:29 200.8 MLS/HR Thiamine HCl 100 mg DAILY IV 12/05/24 10:00 12/09/24 09:28 100 MG Enoxaparin Sodium 40 mg DAILY SC 12/05/24 10:00 12/09/24 09:28 40 MG Propofol 100 ml @ 2.673 mls/ hr Q24H IV 12/04/24 18:15 12/09/24 10:47 26.73 MLS/HR Norepinephrine Bitartrate 250 ml @ 3.75 mls/hr Q24H IV 12/04/24 19:15 12/09/24 12:58 3.75 MLS/HR Lactulose 30 ml Q6HR GT 12/05/24 08:45 12/09/24 18:14 30 ML Polyethylene Glycol 17 gm DAILY PO 12/06/24 10:00 12/09/24 09:26 17 GM Haloperidol Lactate 5 mg Q8HP PRN IV 12/05/24 08:45 Quetiapine Fumarate 200 mg HS PO 12/05/24 22:00 12/08/24 21:24 200 MG Gabapentin 300 mg BID PO 12/05/24 22:00 12/09/24 09:26 300 MG Valproate Sodium 500 mg BID GT 12/05/24 22:00 12/09/24 09:26 500 MG Carbamazepine 400 mg BID GT 12/05/24 22:00 12/09/24 09:27 400 MG Metoclopramide HCl 10 mg Q8HPRN PRN IV 12/07/24 00:00 12/09/24 10:47 10 MG Cefepime HCl 50 ml @ 12.5 mls/hr Q8HR IV 12/07/24 14:00 12/09/24 15:10 12.5 MLS/HR Vancomycin HCl 0 ml @ 0 mls/hr UD IV 12/07/24 13:00 Purified Water 200 ml Q6HR GT 12/07/24 18:00 12/09/24 18:06 200 ML Sodium Chloride 10 ml QSHIFT@10,22 IV 12/07/24 22:00 12/09/24 09:29 10 ML Multi-Ingredient Ointment 1 applic DAILY TOP 12/09/24 10:00 12/09/24 09:30 1 APPLIC Metoclopramide HCl 10 mg Q8HPRN PRN IV 12/08/24 19:30 Vancomycin HCl 250 ml @ 200 mls/hr Q8H IV 12/09/24 17:00 12/09/24 17:24 200 MLS/HR laboratory and microbiology Laboratory Tests 12/09/24 02:45 Test 12/09/24 02:45 Range/Units Serum Glucose 125 H 74-106 mg/dL Assessment/Plan Impression Acute hypoxemic respiratory failure Hx of intracranial hemorrhage Alcohol abuse Pneumonia REYNALDO Patient seen and examined in ICU Events On mechanical ventilation S/p intubation PEEP 5, FiO2 35% Labs and imaging reviewed ABG reviewed Management Vent support Titrate to maintain sats 90% or above Sedation for vent synchrony Continue antibiotics F/u cultures Bronchodilators Monitor renal function F/u nephrology, management deferred Monitor electrolytes Supplement as needed Pressors as needed for hemodynamic support To maintain a mean arterial pressure of 65 mmHg F/u neurology DVT prophylaxis Critical care time 35 minutes Dietary Evaluation Review Comments: 1) Initiate thiamin, folic acid, and MVI supplementation d/t recent ETOH abuse 2) If patient remains NPO > 7 days, consider EN/TPN to meet at least 75% of estimated daily needs 3) If GI is preferred, initiate Glucerna 1.2 @ 60 mL/hr goal rate as tolerated. Flush with 150 mL Q6H. TF regimen will provide 1728 kcals, 86g Pro, and 1759 mL free H2O (including flushes) per 24 hrs. Goal rate will meet ~87% estimated daily energy needs and ~72% estimated daily protein needs 4) Advance to 60g CCHO cardiac diet when medically feasible, pending ST approval 5) Collect HbA1c 6) Refer to outpatient RD/[facility] for diabetes education 7) Follow-up with cardiology, pulmonology, and psychiatry 8) Follow-up with health social work professor r/t ETOH abuse 9) Continue to monitor I&O, labs, and skin integrity Expected Outcomes/Goals: 1) patient to receive nutritional support within 7 days of NPO status 2) labs and GI symptoms to improve 3) diet to advance 4) follow-up in 2-3 days Plan discussed with: Other (Rn) BRANNON CARR MD Dec 09, 2024 18:32
[2024-12-10] VITALS (105 sets, daily range): BP systolic 69–172; BP diastolic 49–98; PULSE 59–105; RESP 12–28; TEMP 97–99.9; O2SAT 92–100
[2024-12-10 04:17] LABS: Hematocrit 29.8 % (41.0-53.0); Hemoglobin 10.1 g/dL (13.5-17.5); Mean Corpuscular Hemoglobin 30.6 pg (28.0-32.0); Mean Corpuscular Volume 90.0 fL (80.0-100.0); Nucleated Red Blood Cells % 0.2 %
[2024-12-10 04:23] LABS: Alanine Aminotransferase 36 U/L (7-40); Anion Gap 9 (5-15); BUN/Creatinine Ratio 10.5 (10.0-20.0); Carbon Dioxide 27 mmol/L (20-31); Potassium 3.5 mmol/L (3.5-5.1); Total Protein 5.8 g/dL (5.7-8.2)
[2024-12-10 04:30] LABS: Albumin 3.0 g/dL (3.2-4.8); Alkaline Phosphatase 196 U/L (46-116); Bilirubin, Total < 0.2 mg/dL (0.2-1.0); Blood Urea Nitrogen 6 mg/dL (9-23); Calcium 8.4 mg/dL (8.7-10.4); Chloride 111 mmol/L (98-107); Glucose 141 mg/dL (74-106); Sodium 147 mmol/L (136-145)
--- NOTE | 2024-12-10 07:06 | DVH ---
CHEST RADIOGRAPH Indication: INTUBATED Technique: Single frontal view of the chest was obtained Comparison: XY CHEST XRAY 1 VIEW on DOS: 12/09/24, XY CHEST XRAY 1 VIEW on DOS: 12/08/24, XY CHEST XRAY 1 VIEW on DOS: 12/07/24 IMPRESSION: Heart appears stable in size. Patchy airspace opacity in the left lung base. No sizable effusion or pneumothorax. Endotracheal tube tip approximately 3 cm from the laci. Enteric tube tip within the stomach. Right PICC line tip in the region of the superior vena cava. No pneumothorax.
[2024-12-10 07:26] LABS: Base Excess 0.8 mmol/L (-2.0-3.0)
--- NOTE | 2024-12-10 10:52 | DVHPN2 ---
Subjective Patient's remains intubated and sedated currently on low-dose of Levophed, FiO2 of 35% with a PEEP of 5. Reviewed: Care Plan, H&P, Labs, Medications, Previous Orders, Radiology Changes from previous H/P or p: No Changes Objective Vitals Vital Signs Date Time Temp Pulse Resp B/P (MAP) Pulse Ox O2 Delivery O2 Flow Rate FiO2 12/10/24 10:02 74 16 104/66 (79) 98 35 12/10/24 09:30 Mechanical Ventilator+ 12/10/24 08:00 98.1 208.6 Intake/Output Intake and Output 12/10/24 07:00 Intake Total 3315.208 ml Output Total 1600 ml Balance 1715.208 ml Intake Oral 900 ml IV Total 2367.208 ml Tube Feeding 48 ml Output Urine Total 1150 ml Stool Total 450 ml Exam HEENT pupils are reactive Neck is supple CV is S1-S2 regular rate and rhythm Respiratory diminished breath sounds bilateral lung bases GI positive bowel sounds 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 General Appearance: Other (vent) HEENT: Atraumatic, PERRLA Lungs: Other (On vent; few crackles) Cardiovascular: Other (border tachy) Abdomen: Normal bowel sounds Medications Current Medications Medications Dose Ordered Sig/Misa Route Start Time Stop Time Status Last Admin Dose Admin Midazolam HCl 50 ml @ 1 mls/hr Q24H IV 12/01/24 12:45 12/10/24 09:13 14 MLS/HR Dextrose 50 ml UD PRN IV 12/01/24 13:30 Cancel Insulin Glargine 15 units DAILY SC 12/02/24 10:00 Cancel Fentanyl Citrate 250 ml @ 2.5 mls/hr Q24H IV 12/01/24 16:30 12/10/24 09:20 35 MLS/HR Dextrose 50 ml UD PRN IV 12/01/24 16:45 Cancel Acetaminophen 650 mg Q6HP PRN PO 12/01/24 16:45 12/07/24 06:09 650 MG Famotidine 20 mg DAILY IV 12/02/24 10:00 12/10/24 09:04 20 MG Ipratropium [place] 0.5 mg Q4HR NEB 12/01/24 18:00 12/10/24 06:10 0.5 MG Albuterol 2.5 mg Q4HPRN PRN NEB 12/01/24 18:00 12/09/24 14:30 2.5 MG Diagnostic Test (Pha) 1 strip Q6HR 12/02/24 18:00 12/10/24 05:28 1 STRIP Insulin Human Regular Q6HR SC 12/02/24 18:00 12/09/24 18:14 3 UNITS Dextrose 50 ml UD PRN IV 12/02/24 15:45 Insulin Glargine 15 units DAILY@1000 SC 12/03/24 10:00 12/10/24 09:55 15 UNITS Lorazepam 1 mg Q5MINP PRN IV 12/03/24 01:45 12/03/24 03:43 1 MG Enteral Nutritional Formula 1,000 ml 40ML/HR GT 12/03/24 09:30 12/09/24 22:32 1,000 ML Levetiracetam 100 ml @ 400 mls/hr BID IV 12/03/24 10:00 UNV Levetiracetam 750 mg BID PO 12/03/24 10:00 12/10/24 09:05 750 MG Folic Acid 1 mg/ Dextrose 50.2 ml @ 200.8 mls/ hr DAILY INJ 12/05/24 10:00 12/10/24 09:02 200.8 MLS/HR Thiamine HCl 100 mg DAILY IV 12/05/24 10:00 12/10/24 09:04 100 MG Enoxaparin Sodium 40 mg DAILY SC 12/05/24 10:00 12/10/24 09:05 40 MG Propofol 100 ml @ 2.673 mls/ hr Q24H IV 12/04/24 18:15 12/10/24 09:12 26.73 MLS/HR Norepinephrine Bitartrate 250 ml @ 3.75 mls/hr Q24H IV 12/04/24 19:15 12/09/24 12:58 3.75 MLS/HR Lactulose 30 ml Q6HR GT 12/05/24 08:45 12/09/24 18:14 30 ML Polyethylene Glycol 17 gm DAILY PO 12/06/24 10:00 12/09/24 09:26 17 GM Haloperidol Lactate 5 mg Q8HP PRN IV 12/05/24 08:45 Quetiapine Fumarate 200 mg HS PO 12/05/24 22:00 12/09/24 22:33 200 MG Gabapentin 300 mg BID PO 12/05/24 22:00 12/10/24 09:03 300 MG Valproate Sodium 500 mg BID GT 12/05/24 22:00 12/10/24 09:05 500 MG Carbamazepine 400 mg BID GT 12/05/24 22:00 12/10/24 09:06 400 MG Cefepime HCl 50 ml @ 12.5 mls/hr Q8HR IV 12/07/24 14:00 12/10/24 05:11 12.5 MLS/HR Vancomycin HCl 0 ml @ 0 mls/hr UD IV 12/07/24 13:00 Purified Water 200 ml Q6HR GT 12/07/24 18:00 12/10/24 05:12 200 ML Sodium Chloride 10 ml QSHIFT@ IV 12/07/24 22:00 12/10/24 09:04 10 ML Multi-Ingredient Ointment 1 applic DAILY TOP 12/09/24 10:00 12/10/24 09:06 1 APPLIC Metoclopramide HCl 10 mg Q8HPRN PRN IV 12/08/24 19:30 Vancomycin HCl 250 ml @ 200 mls/hr Q8H IV 12/09/24 17:00 12/10/24 09:52 200 MLS/HR Laboratory Results Laboratory Tests 12/10/24 03:30 Chemistry Test 12/10/24 03:30 Albumin 3.0 g/dL (3.2-4.8) L Calcium Level 8.4 mg/dL (8.7-10.4) L Total Protein 5.8 g/dL (5.7-8.2) LFT Test 12/10/24 03:30 Alanine Aminotransferase (ALT) 36 U/L (7-40) Alkaline Phosphatase 196 U/L (46-116) H Aspartate Amino Transferase (AST) 53 U/L (13-40) H Total Bilirubin < 0.2 mg/dL (0.2-1.0) L HgA1c, TSH Test 12/10/24 03:33 Hemoglobin A1c 10.5 % A1C (<5.7) H Urinalysis Test 12/01/24 00:00 12/02/24 14:31 Urine Mucus Few (None Seen) Urine Color Colorless (Yellow) Urine Clarity Turbid (Clear) H Urine pH 6.0 (5.0-9.0) Urine Specific [place] 1.011 (1.001-1.035) Urine Protein Negative (Negative) Urine Ketones Trace (Negative) Urine Blood 2+ /uL (Negative) H Urine Nitrite Negative (Negative) Urine Bilirubin Negative (Negative) Urine Urobilinogen Normal mg/dL (Negative) Urine Leukocyte Esterase 3+ /uL (Negative) Urine RBC 14 /hpf (0 - 3) Urine Microscopic WBC 30 /HPF (0-3) H Urine Squamous Epithelial Cells Few /hpf (<5) Urine Bacteria Few /hpf (None Seen) H Urine Glucose Normal mg/dL (Normal) Blood Gas Results Test 12/10/24 07:13 Arterial Blood pH 7.416 (7.350-7.450) FiO2 % 35.0 Microbiology Microbiology Date/Time Source Procedure Growth Status 12/09/24 02:50 Blood Blood Culture - Preliminary NO GROWTH AFTER 24 HOURS OF INCUBATION. 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 1. Acute hypoxic respiratory failure requiring intubation and vent support, currently on FiO2 75% with a PEEP of 5. 2. Klebsiella pneumoniae 3. Diabetic ketoacidosis currently off of insulin drip 4. Non gap metabolic acidosis secondary to DKA, resolved 5. Hypernatremia currently on free water 6. Seizure disorder 7. Bipolar/schizophrenia 8. Anxiety and depression disorder 9. 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 Acute metabolic encephalopathy 11. Chronic tobacco use disorder 12. Marijuana use 13. Chronic alcoholism -continue vent support, daily ABG, chest x-ray, tube feeding, insulin sliding scale and long-acting insulin -continue cefepime, discontinue vancomycin. Patient remains critical prognosis remains guarded. -no family member at bedside. Plan discussed with: Other (Patient's bedside KEYANA Mcgovren.) Date of Service: Dec 10, 2024 Billing Provider: MARILEE MORE MD Common Visit Codes: [id number] INP/OBS CARE(HIGH) MARILEE MORE MD Dec 10, 2024 10:52
--- NOTE | 2024-12-10 13:51 | DVHPN2 ---
Progress Note - Dictate Date Seen: Dec 10, 2024 Medical Necessity Reason Pt with a Central, PICC or Fol: Yes The following are medically ne: Orellana Catheter vital signs Vital Sign Date Time Temp Pulse Resp B/P (MAP) Pulse Ox O2 Delivery O2 Flow Rate FiO2 12/10/24 12:48 94/61 12/10/24 12:00 20 97 Mechanical Ventilator+ 35 35 12/10/24 11:46 74 12/10/24 08:00 98.1 208.6 Total Intake and Output 12/09/24 12/09/24 12/10/24 15:00 23:00 07:00 Intake Total 686.383 ml 1199.190 ml 1429.635 ml Output Total 650 ml 950 ml Balance 686.383 ml 549.190 ml 479.635 ml medications Current Medications Medications Dose Ordered Sig/Misa Route Start Time Stop Time Status Last Admin Dose Admin Midazolam HCl 50 ml @ 1 mls/hr Q24H IV 12/01/24 12:45 12/10/24 09:13 14 MLS/HR Dextrose 50 ml UD PRN IV 12/01/24 13:30 Cancel Insulin Glargine 15 units DAILY SC 12/02/24 10:00 Cancel Fentanyl Citrate 250 ml @ 2.5 mls/hr Q24H IV 12/01/24 16:30 12/10/24 09:20 35 MLS/HR Dextrose 50 ml UD PRN IV 12/01/24 16:45 Cancel Acetaminophen 650 mg Q6HP PRN PO 12/01/24 16:45 12/07/24 06:09 650 MG Famotidine 20 mg DAILY IV 12/02/24 10:00 12/10/24 09:04 20 MG Ipratropium [place] 0.5 mg Q4HR NEB 12/01/24 18:00 12/10/24 10:02 0.5 MG Albuterol 2.5 mg Q4HPRN PRN NEB 12/01/24 18:00 12/09/24 14:30 2.5 MG Diagnostic Test (Pha) 1 strip Q6HR 12/02/24 18:00 12/10/24 12:23 1 STRIP Insulin Human Regular Q6HR SC 12/02/24 18:00 12/10/24 12:23 2 UNITS Dextrose 50 ml UD PRN IV 12/02/24 15:45 Insulin Glargine 15 units DAILY@1000 SC 12/03/24 10:00 12/10/24 09:55 15 UNITS Lorazepam 1 mg Q5MINP PRN IV 12/03/24 01:45 12/03/24 03:43 1 MG Enteral Nutritional Formula 1,000 ml 40ML/HR GT 12/03/24 09:30 12/09/24 22:32 1,000 ML Levetiracetam 100 ml @ 400 mls/hr BID IV 12/03/24 10:00 UNV Levetiracetam 750 mg BID PO 12/03/24 10:00 12/10/24 09:05 750 MG Folic Acid 1 mg/ Dextrose 50.2 ml @ 200.8 mls/ hr DAILY INJ 12/05/24 10:00 12/10/24 09:02 200.8 MLS/HR Thiamine HCl 100 mg DAILY IV 12/05/24 10:00 12/10/24 09:04 100 MG Enoxaparin Sodium 40 mg DAILY SC 12/05/24 10:00 12/10/24 09:05 40 MG Propofol 100 ml @ 2.673 mls/ hr Q24H IV 12/04/24 18:15 12/10/24 12:48 26.73 MLS/HR Norepinephrine Bitartrate 250 ml @ 3.75 mls/hr Q24H IV 12/04/24 19:15 12/09/24 12:58 3.75 MLS/HR Lactulose 30 ml Q6HR GT 12/05/24 08:45 12/09/24 18:14 30 ML Polyethylene Glycol 17 gm DAILY PO 12/06/24 10:00 12/09/24 09:26 17 GM Haloperidol Lactate 5 mg Q8HP PRN IV 12/05/24 08:45 Quetiapine Fumarate 200 mg HS PO 12/05/24 22:00 12/09/24 22:33 200 MG Gabapentin 300 mg BID PO 12/05/24 22:00 12/10/24 09:03 300 MG Valproate Sodium 500 mg BID GT 12/05/24 22:00 12/10/24 09:05 500 MG Carbamazepine 400 mg BID GT 12/05/24 22:00 12/10/24 09:06 400 MG Cefepime HCl 50 ml @ 12.5 mls/hr Q8HR IV 12/07/24 14:00 12/10/24 05:11 12.5 MLS/HR Purified Water 200 ml Q6HR GT 12/07/24 18:00 12/10/24 11:30 200 ML Sodium Chloride 10 ml QSHIFT@10,22 IV 12/07/24 22:00 12/10/24 09:04 10 ML Multi-Ingredient Ointment 1 applic DAILY TOP 12/09/24 10:00 12/10/24 09:06 1 APPLIC Metoclopramide HCl 10 mg Q8HPRN PRN IV 12/08/24 19:30 Chlordiazepoxide HCl 25 mg Q6HR PO 12/10/24 12:00 12/10/24 12:22 25 MG laboratory and microbiology Laboratory Tests 12/10/24 03:30 Test 12/10/24 03:30 Range/Units Serum Glucose 141 H 74-106 mg/dL Assessment/Plan Impression Acute hypoxemic respiratory failure Hx of intracranial hemorrhage Alcohol abuse Pneumonia REYNALDO Patient seen and examined in ICU Events On mechanical ventilation S/p intubation PEEP 5, FiO2 35% Patient noted to have tremors this morning requiring re-sedation Concern raised for seizures Started on Librium for symptoms of alcohol withdrawal Labs and imaging reviewed ABG reviewed Management Vent support Titrate to maintain sats 90% or above Sedation for vent synchrony Continue antibiotics F/u cultures Bronchodilators Monitor renal function F/u nephrology, management deferred Monitor electrolytes Supplement as needed Pressors as needed for hemodynamic support To maintain a mean arterial pressure of 65 mmHg Antiepileptics as ordered Continue Librium F/u neurology DVT prophylaxis Critical care time 35 minutes Dietary Evaluation Review Comments: 1) Initiate thiamin, folic acid, and MVI supplementation d/t recent ETOH abuse 2) If patient remains NPO > 7 days, consider EN/TPN to meet at least 75% of estimated daily needs 3) If GI is preferred, initiate Glucerna 1.2 @ 60 mL/hr goal rate as tolerated. Flush with 150 mL Q6H. TF regimen will provide 1728 kcals, 86g Pro, and 1759 mL free H2O (including flushes) per 24 hrs. Goal rate will meet ~87% estimated daily energy needs and ~72% estimated daily protein needs 4) Advance to 60g CCHO cardiac diet when medically feasible, pending ST approval 5) Collect HbA1c 6) Refer to outpatient RD/[facility] for diabetes education 7) Follow-up with cardiology, pulmonology, and psychiatry 8) Follow-up with social research assistant r/t ETOH abuse 9) Continue to monitor I&O, labs, and skin integrity Expected Outcomes/Goals: 1) patient to receive nutritional support within 7 days of NPO status 2) labs and GI symptoms to improve 3) diet to advance 4) follow-up in 2-3 days Plan discussed with: Other BRANNON CARR MD Dec 10, 2024 13:51
[2024-12-10] MEDS: fentaNYL Drip 2500mCg/250mlNS 250 ML IV SCH (23:34)
[2024-12-11] VITALS (103 sets, daily range): BP systolic 84–160; BP diastolic 50–112; PULSE 72–129; RESP 11–45; TEMP 99.3–101.3; O2SAT 86–100
[2024-12-11 02:58] LABS: Nucleated Red Blood Cells % 0.2 %
[2024-12-11 03:03] LABS: Hematocrit 31.1 % (41.0-53.0); Hemoglobin 10.5 g/dL (13.5-17.5); Mean Corpuscular Hemoglobin 30.4 pg (28.0-32.0); Mean Corpuscular Volume 90.5 fL (80.0-100.0)
[2024-12-11 03:23] LABS: Alanine Aminotransferase 37 U/L (7-40); Alkaline Phosphatase 236 U/L (46-116); Anion Gap 13 (5-15); BUN/Creatinine Ratio 12.1 (10.0-20.0); Blood Urea Nitrogen 7 mg/dL (9-23); Calcium 8.8 mg/dL (8.7-10.4); Carbon Dioxide 24 mmol/L (20-31); Chloride 107 mmol/L (98-107); Glucose 156 mg/dL (74-106); Potassium 3.8 mmol/L (3.5-5.1); Sodium 144 mmol/L (136-145); Total Protein 6.3 g/dL (5.7-8.2)
[2024-12-11 03:24] LABS: Albumin 3.2 g/dL (3.2-4.8)
[2024-12-11 04:05] LABS: Bilirubin, Total < 0.2 mg/dL (0.2-1.0)
[2024-12-11 09:31] LABS: Base Excess -1.0 mmol/L (-2.0-3.0)
[2024-12-11] MEDS: METOCLOPRAMIDE HCL 5MG/ml INJ 2ml VIAL IV SCH (09:45)
--- NOTE | 2024-12-11 09:51 | DVH ---
CHEST RADIOGRAPH Indication: Pneumomnia Technique: Single frontal view of the chest was obtained Comparison: XY CHEST XRAY 1 VIEW on DOS: 12/10/24, XY CHEST XRAY 1 VIEW on DOS: 12/09/24, XY CHEST XRAY 1 VIEW on DOS: 12/08/24, XY CHEST XRAY 1 VIEW on DOS: 12/07/24, XY CHEST XRAY 1 VIEW on DOS: 12/06/24, XY CHEST XRAY 1 VIEW on DOS: 12/10/24 FINDINGS: Heart appears stable in size. Patchy airspace opacity in the left lung base. No sizable effusion or pneumothorax. Endotracheal tube tip approximately 3 cm from the laci. Enteric tube tip within the stomach. Right PICC line tip in the region of the superior vena cava. No pneumothorax. IMPRESSION: No interval change.
--- NOTE | 2024-12-11 15:04 | DVH ---
CHEST RADIOGRAPH Indication: change in status Technique: Single frontal view of the chest was obtained COMPARISON: XY CHEST XRAY 1 VIEW on DOS: 12/11/24, XY CHEST XRAY 1 VIEW on DOS: 12/10/24, XY CHEST XRAY 1 VIEW on DOS: 12/09/24, XY CHEST XRAY 1 VIEW on DOS: 12/08/24, XY CHEST XRAY 1 VIEW on DOS: 12/07/24 FINDINGS: Lines and Tubes: Endotracheal tube in satisfactory position, enteric catheter in satisfactory positio n, right PICC in satisfactory position, right central venous catheter in satisfactory position. Lungs: Unchanged pulmonary vascular congestion. Pleura: No effusion. No pneumothorax. Cardiomediastinal contours: Unremarkable. Bones: Unremarkable. IMPRESSION: Lines and tubes in satisfactory position. No significant interval change.
[2024-12-11] MEDS: LINEZOLID 600MG/300ML 300 ML IV SCH (17:02)
[2024-12-11] MEDS: MEROPENEM 1GM IVPB 50 ML IV ONE (17:02)
[2024-12-11] MEDS: PROPOFOL 100 ML IV SCH (19:00)
[2024-12-11] MEDS: D5W/SOD CHLO 0.9% 1,000 ML IV SCH (19:42)
--- NOTE | 2024-12-11 20:03 | DVHPNRES ---
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 Per patient's roommate, he has not been using his medicine since 1 week, and had developed nausea, vomiting and diarrhea since 3 days, and since 1 day has been altered. Denies fever, loss of consciousness, or any trauma. PMHx: asthma, CVA, intracerebral hemorrhage, subdural hematoma, (status post [employer] WORKER shunt, 10 years back), depression, diabetes type 1, hypertension, seizure, bipolar disorder PSHx: [employer] SUR[employer] WORKER shunt (10 years back), had removed molar to 3 weeks back, had tracheostomy in 2019 (due to intracerebral hemorrhage) Social history: Smokes marijuana and drink heavy alcohol. Lives with friend at home. At baseline mobile, but does not work, on disability Home medication: Quetiapine, sertraline, gabapentin, insulin NPH, levetiracetam, oxcarbazepine, and hydroxyzine, noncompliant with the medicine Today, 12/11, Patient seen and examined at the bedside. Patient is sedated and on mechanical ventilation. Objective vital signs Vital Sign Date Time Temp Pulse Resp B/P (MAP) Pulse Ox O2 Delivery O2 Flow Rate FiO2 12/11/24 19:39 122/73 12/11/24 18:30 114 17 98 12/11/24 18:00 50 12/11/24 18:00 Mechanical Ventilator+ 12/11/24 18:00 100.0 212.0 Total Intake and Output 12/10/24 12/10/24 12/11/24 15:00 23:00 07:00 Intake Total 698.335 ml 1219.741 ml 1018.040 ml Output Total 550 ml 1500 ml Balance 698.335 ml 669.741 ml -481.960 ml medications Current Medications Medications Dose Ordered Sig/Misa Route Start Time Stop Time Status Last Admin Dose Admin Midazolam HCl 50 ml @ 1 mls/hr Q24H IV 12/01/24 12:45 12/11/24 19:39 15 MLS/HR Dextrose 50 ml UD PRN IV 12/01/24 13:30 Cancel Insulin Glargine 15 units DAILY SC 12/02/24 10:00 Cancel Dextrose 50 ml UD PRN IV 12/01/24 16:45 Cancel Acetaminophen 650 mg Q6HP PRN PO 12/01/24 16:45 12/07/24 06:09 650 MG Famotidine 20 mg DAILY IV 12/02/24 10:00 12/11/24 09:29 20 MG Ipratropium [place] 0.5 mg Q4HR NEB 12/01/24 18:00 12/11/24 17:43 0.5 MG Albuterol 2.5 mg Q4HPRN PRN NEB 12/01/24 18:00 12/11/24 17:43 2.5 MG Diagnostic Test (Pha) 1 strip Q6HR 12/02/24 18:00 12/11/24 18:57 1 STRIP Insulin Human Regular Q6HR SC 12/02/24 18:00 12/11/24 12:06 2 UNITS Dextrose 50 ml UD PRN IV 12/02/24 15:45 Insulin Glargine 15 units DAILY@1000 SC 12/03/24 10:00 12/11/24 09:45 15 UNITS Lorazepam 1 mg Q5MINP PRN IV 12/03/24 01:45 12/03/24 03:43 1 MG Enteral Nutritional Formula 1,000 ml 40ML/HR GT 12/03/24 09:30 12/09/24 22:32 1,000 ML Levetiracetam 100 ml @ 400 mls/hr BID IV 12/03/24 10:00 UNV Levetiracetam 750 mg BID PO 12/03/24 10:00 12/11/24 09:30 750 MG Folic Acid 1 mg/ Dextrose 50.2 ml @ 200.8 mls/ hr DAILY INJ 12/05/24 10:00 12/11/24 10:41 200.8 MLS/HR Thiamine HCl 100 mg DAILY IV 12/05/24 10:00 12/11/24 09:30 100 MG Enoxaparin Sodium 40 mg DAILY SC 12/05/24 10:00 12/11/24 09:32 40 MG Norepinephrine Bitartrate 250 ml @ 3.75 mls/hr Q24H IV 12/04/24 19:15 12/11/24 05:45 3.75 MLS/HR Lactulose 30 ml Q6HR GT 12/05/24 08:45 12/11/24 11:59 30 ML Polyethylene Glycol 17 gm DAILY PO 12/06/24 10:00 12/09/24 09:26 17 GM Valproate Sodium 500 mg BID GT 12/05/24 22:00 12/11/24 09:30 500 MG Carbamazepine 400 mg BID GT 12/05/24 22:00 12/11/24 09:30 400 MG Purified Water 200 ml Q6HR GT 12/07/24 18:00 12/11/24 11:59 200 ML Sodium Chloride 10 ml QSHIFT@10,22 IV 12/07/24 22:00 12/11/24 09:31 10 ML Multi-Ingredient Ointment 1 applic DAILY TOP 12/09/24 10:00 12/11/24 10:20 1 APPLIC Fentanyl Citrate 250 ml @ 2.5 mls/hr Q24H IV 12/10/24 23:30 12/11/24 19:37 35 MLS/HR Metoclopramide HCl 10 mg Q8HR IV 12/11/24 09:45 12/11/24 17:02 10 MG Linezolid 300 ml @ 150 mls/hr Q12H IV 12/11/24 17:00 12/11/24 17:02 150 MLS/HR Meropenem 50 ml @ 17 mls/hr Q8HR IV 12/11/24 22:00 Propofol 100 ml @ 2.559 mls/ hr Q24H IV 12/11/24 19:00 Dextrose/Sodium Chloride 1,000 ml @ 75 mls/hr [id number] IV 12/11/24 19:00 12/11/24 19:42 75 MLS/HR Examination General: RASS -5, afebrile, mucosae are moist Cardiovascular: Normal S1 and S2. No murmurs, gallops or rubs Respiratory: Left-sided crackles GI: Soft, nontender, no organomegaly, normal bowel sounds : Orellana catheter n place, clear yellow urine in collection bag MSK/skin: Mobilization of limbs cannot be evaluated. Skin is dry and warm. IV accesses: A small 2 x 2 cm scab noticed at the heel of left leg Neurological: Orientation cannot be assessed. No apparent motor no sensitive deficits. Pupils are isocoric and reactive laboratory and microbiology Laboratory Tests 12/11/24 02:20 Test 12/11/24 02:20 Range/Units Serum Glucose 156 H 74-106 mg/dL Microbiology Date/Time Source Procedure Growth Status 12/09/24 02:50 Blood Blood Culture - Preliminary NO GROWTH AFTER 48 HOURS OF INCUBATION. Resulted 12/02/24 14:31 Urine - Orellana [place] Urine Culture - Final Complete 12/01/24 21:06 Nose MRSA Screen - Final Complete 12/01/24 00:00 Sputum Endotracheal Wash Gram Stain - Final Complete 12/01/24 00:00 Respiratory Culture - Final Klebsiella pneumoniae Complete Labs and/or images reviewed: Labs reviewed by me Problem List/Assessment/Plan Problem List/Assessment/Plan This is a 44-year-old male with past medical history of CVA, subdural hematoma, (status post [employer] WORK[employer] shunt), depression, diabetes type 1, and bipolar disorder brought to the hospital due to nausea, vomiting, diarrhea and altered mental status. Had admitted with primary diagnosis of DKA/HHS. And had admitted and intubated on 12/01. NEURO: Acute metabolic encephalopathy, likely due to DKA/HHS/sepsis History of intracerebral hemorrhage, status post [employer] WORK[employer] shunt Possible alcohol withdrawal History of epilepsy Bipolar disorder/depression * Head CT scan 12/01, no new intracranial abnormalities * RASS score -4 * Discontinue quetiapine and gabapentin * Continue home meds: Keppra, oxygen carbamazepine, valproic acid * Plan: Versed, fentanyl and propofol CARDIOVASCULAR: Sinus tachycardia RESPIRATORY: Acute hypoxic respiratory failure, likely due to pneumonia Pneumonia, due to Klebsiella pneumoniae Aspiration pneumonia * Chest x-ray shows bilateral haziness, with prominent bronchovascular marking * MV setting: VC mode, TV 400, RR 20, FiO2 30%, peep 5 * Plan: Mechanical ventilation, breathing treatment and IV antibiotic GENITOURINARY/FLUID: REYNALDO, likely VMN, resolved * Plan: NS with dextrose 10% at 75 mL/hour GASTROINTESTINAL/NUTRITION: Alcohol use disorder Possible alcohol withdrawal Possible refeeding syndrome * Plan: Thiamine, and folic acid INFECTIOUS DISEASE: Sepsis, likely due to pneumonia Pneumonia, due to Klebsiella pneumoniae Aspiration pneumonia Dental infection * Sputum culture 12/01, Klebsiella pneumoniae * Blood and urine culture 12/01, Shows no growth * Discontinued Rocephin (12/01-12/06), azithromycin (12/01-12/06) and clindamycin (12/04-12/06) * Discontinue vancomycin (12/06 given up to 12/11), and cefepime (12/07 given up to 12/11) * Plan: Meropenem (12/11), linezolid (12/11) HEMATOLOGY: Mild anemia, normocytic normochromic ENDOCRINE: Diabetes type 1 DKA/HHS * Plan: Lantus 15 units, ISS, sodium phosphate METABOLIC: Hypokalemia Hyponatremia Hypomagnesemia Hypophosphatemia Hyperphosphatemia MSK/SKIN: Skin scab, on the heel of left leg New skin eruptions (xerosis/seborrheic dermatitis, possibly due to ICU related skin dryness), possible drug eruption or infection related * New erythematous/scaly rashes noted on checks, face and neck, no parts of body and mucosal involvement, patient is sedated and can not report any symptoms * Plan: Eucerin cream, monitoring eosinophils DIET: NPO DVT prophylax: Lovenox GI prophylaxis: Protonix Bowel regimen: Lactulose LINES/DEVICES ETT: Intubated on 12/01 IV access: PICC line placed on 11/07 Drips: Fentanyl, Versed and propofol Orellana catheter: Placed on 12/01 OG-tube: Disposition: Continue ICU status Family: Patients friends (Durga and Tristen) updated at the bedside. Critical care time: Spent > 83 min, spent in direct critical care, including evaluation, management, review of labs/imaging, and multidisciplinary/family discussions, (excluding any procedures). Case discussed with Dr. Valentino Plan discussed with: Other My Orders My Orders Orders - SEAN DE LOS SANTOS RESDIYANG Procedure Category Date Status Time Chest Xray 1 View XY 12/11/24 Resulted 09:08 Metoclopramide PHA 12/11/24 In Process Injection (Reglan 09:45 Respiratory Misc. RT 12/11/24 Transmitted Order 10:36 Apply: KEITH 12/11/24 In Process 17:12 Dietary Evaluation Review Comments: 1) Initiate thiamin, folic acid, and MVI supplementation d/t recent ETOH abuse 2) If patient remains NPO > 7 days, consider EN/TPN to meet at least 75% of estimated daily needs 3) If GI is preferred, initiate Glucerna 1.2 @ 60 mL/hr goal rate as tolerated. Flush with 150 mL Q6H. TF regimen will provide 1728 kcals, 86g Pro, and 1759 mL free H2O (including flushes) per 24 hrs. Goal rate will meet ~87% estimated daily energy needs and ~72% estimated daily protein needs 4) Advance to 60g CCHO cardiac diet when medically feasible, pending ST approval 5) Collect HbA1c 6) Refer to outpatient RD/[facility] for diabetes education 7) Follow-up with cardiology, pulmonology, and psychiatry 8) Follow-up with social worker assistant r/t ETOH abuse 9) Continue to monitor I&O, labs, and skin integrity Expected Outcomes/Goals: 1) patient to receive nutritional support within 7 days of NPO status 2) labs and GI symptoms to improve 3) diet to advance 4) follow-up in 2-3 days Date of Service: Dec 11, 2024 Billing Provider: APRIL VALENTINO MD Common Visit Codes: 13274-[id number] CARE 30-74 MIN, 22037-[id number] CARE-EACH +30MIN SEAN DE LOS SANTOS Dec 11, 2024 20:03 APRIL VALENTINO MD Dec 12, 2024 12:06
[2024-12-11] MEDS: MEROPENEM 1GM IVPB 50 ML IV SCH (22:26)
[2024-12-12] VITALS (106 sets, daily range): BP systolic 81–229; BP diastolic 51–192; PULSE 67–119; RESP 14–34; TEMP 97.3–100.6; O2SAT 83–100
--- NOTE | 2024-12-12 03:23 | DVH ---
CHEST RADIOGRAPH Indication: Pneumonia Technique: 1 view Comparison: XY CHEST PORTABLE on DOS: 12/11/24, XY CHEST XRAY 1 VIEW on DOS: 12/11/24, XY CHEST XRAY 1 VIEW on DOS: 12/10/24, XY CHEST XRAY 1 VIEW on DOS: 12/09/24, XY CHEST XRAY 1 VIEW on DOS: 12/08/24 FINDINGS: Lines and Tubes: Unchanged. Lungs/Pleura: Unchanged. Cardiomediastinum: Unchanged. Other: Unchanged osseous structures. IMPRESSION: No significant change from the previous study. Stable support devices. Persistent bilateral mixed p ulmonary opacities and [id number]-right pleural effusion.
[2024-12-12 03:59] LABS: Hemoglobin 9.9 g/dL (13.5-17.5); Mean Corpuscular Volume 89.6 fL (80.0-100.0)
[2024-12-12 04:01] LABS: Hematocrit 29.7 % (41.0-53.0); Mean Corpuscular Hemoglobin 29.8 pg (28.0-32.0)
[2024-12-12 04:21] LABS: Alanine Aminotransferase 23 U/L (7-40); Carbon Dioxide 23 mmol/L (20-31); Chloride 107 mmol/L (98-107); Potassium 3.5 mmol/L (3.5-5.1)
[2024-12-12 04:22] LABS: Anion Gap 15 (5-15); BUN/Creatinine Ratio 9.5 (10.0-20.0); Sodium 145 mmol/L (136-145); Total Protein 6.2 g/dL (5.7-8.2)
[2024-12-12 04:34] LABS: Albumin 3.1 g/dL (3.2-4.8); Alkaline Phosphatase 233 U/L (46-116); Bilirubin, Total < 0.2 mg/dL (0.2-1.0); Blood Urea Nitrogen 6 mg/dL (9-23); Calcium 8.3 mg/dL (8.7-10.4); Glucose 134 mg/dL (74-106)
[2024-12-12 05:00] LABS: Total Cells Counted 100.0 (100)
[2024-12-12 09:20] LABS: Base Excess -0.2 mmol/L (-2.0-3.0)
[2024-12-12 09:27] LABS: Carbamazepine (Tegretol) 3.5 ug/mL (4-12)
--- NOTE | 2024-12-12 18:55 | DVH ---
Exam: XY KUB ABDOMEN SINGLE VIEW Indication: DOBHOFF PLACEMENT Comparison: None Technique: Single AP radiographic views of the abdomen. Findings: 2 NG tubes are seen, 1 terminating within the mid stomach, the 2nd with a weighted tip terminating in the distal stomach. A presumed left femoral central line is seen with distal tip obscured by overlying tubing likely term inating at the level of T10. Nonobstructive bowel gas pattern noted. There is no definite evidence for pneumoperitoneum. No abnormal calcifications noted. Impression: Nonobstructive bowel gas pattern noted.
--- NOTE | 2024-12-12 19:01 | DVHPNRES ---
Progress Note Date Seen: Dec 12, 2024 Resident Creating Document: SEAN DE LOS SANTOS RESDIENT Medical Necessity Reason Pt with a Central, PICC or Fol: Yes The following are medically ne: Orellana Catheter Subjective Review of Systems This is a 44-year-old male with past medical history of asthma, CVA, intracerebral hemorrhage, subdural hematoma, (status post RESEARCH LEADER shunt, 10 years back), depression, diabetes type 1, hypertension, seizure, bipolar disorder brought to the hospital due to altered mental status. Per patient's roommate, he has not been using his medicine since 1 week, and had developed nausea, vomiting and diarrhea since 3 days, and since 1 day has been altered. Denies fever, loss of consciousness, or any trauma. PMHx: asthma, CVA, intracerebral hemorrhage, subdural hematoma, (status post RESEARCH LEADER shunt, 10 years back), depression, diabetes type 1, hypertension, seizure, bipolar disorder PSHx: RESEARCH LEADER shunt (10 years back), had removed molar to 3 weeks back, had tracheostomy in 2019 (due to intracerebral hemorrhage) Social history: Smokes marijuana and drink heavy alcohol. Lives with friend at home. At baseline mobile, but does not work, on disability Home medication: Quetiapine, sertraline, gabapentin, insulin NPH, levetiracetam, oxcarbazepine, and hydroxyzine, noncompliant with the medicine Today, 12/12, Patient seen and examined at the bedside. Patient is sedated and on mechanical ventilation. Review of Systems: HEENT:Normal Objective vital signs Vital Sign Date Time Temp Pulse Resp B/P (MAP) Pulse Ox O2 Delivery O2 Flow Rate FiO2 12/12/24 18:19 96 Mechanical Ventilator 12/12/24 18:19 40 40 12/12/24 18:19 79 24 99/60 (73) 12/12/24 16:30 98.1 208.6 Total Intake and Output 12/11/24 12/11/24 12/12/24 15:00 23:00 07:00 Intake Total 723.415 ml 1013.23 ml 1587.54 ml Output Total 1400 ml 1150 ml Balance 723.415 ml -386.77 ml 437.54 ml medications Current Medications Medications Dose Ordered Sig/Misa Route Start Time Stop Time Status Last Admin Dose Admin Midazolam HCl 50 ml @ 1 mls/hr Q24H IV 12/01/24 12:45 12/12/24 16:25 15 MLS/HR Dextrose 50 ml UD PRN IV 12/01/24 13:30 Cancel Insulin Glargine 15 units DAILY SC 12/02/24 10:00 Cancel Dextrose 50 ml UD PRN IV 12/01/24 16:45 Cancel Acetaminophen 650 mg Q6HP PRN PO 12/01/24 16:45 12/11/24 20:38 650 MG Famotidine 20 mg DAILY IV 12/02/24 10:00 12/12/24 09:42 20 MG Ipratropium [place] 0.5 mg Q4HR NEB 12/01/24 18:00 12/12/24 18:18 0.5 MG Albuterol 2.5 mg Q4HPRN PRN NEB 12/01/24 18:00 12/12/24 18:18 2.5 MG Diagnostic Test (Pha) 1 strip Q6HR 12/02/24 18:00 12/12/24 17:28 1 STRIP Insulin Human Regular Q6HR SC 12/02/24 18:00 12/12/24 12:27 2 UNITS Dextrose 50 ml UD PRN IV 12/02/24 15:45 Lorazepam 1 mg Q5MINP PRN IV 12/03/24 01:45 12/03/24 03:43 1 MG Enteral Nutritional Formula 1,000 ml 40ML/HR GT 12/03/24 09:30 12/09/24 22:32 1,000 ML Levetiracetam 100 ml @ 400 mls/hr BID IV 12/03/24 10:00 UNV Levetiracetam 750 mg BID PO 12/03/24 10:00 12/12/24 09:50 750 MG Folic Acid 1 mg/ Dextrose 50.2 ml @ 200.8 mls/ hr DAILY INJ 12/05/24 10:00 12/12/24 09:44 200.8 MLS/HR Thiamine HCl 100 mg DAILY IV 12/05/24 10:00 12/12/24 09:43 100 MG Enoxaparin Sodium 40 mg DAILY SC 12/05/24 10:00 12/12/24 09:53 40 MG Norepinephrine Bitartrate 250 ml @ 3.75 mls/hr Q24H IV 12/04/24 19:15 12/11/24 05:45 3.75 MLS/HR Lactulose 30 ml Q6HR GT 12/05/24 08:45 12/12/24 12:28 30 ML Polyethylene Glycol 17 gm DAILY PO 12/06/24 10:00 12/09/24 09:26 17 GM Valproate Sodium 500 mg BID GT 12/05/24 22:00 12/12/24 09:52 500 MG Carbamazepine 400 mg BID GT 12/05/24 22:00 12/12/24 09:51 400 MG Sodium Chloride 10 ml QSHIFT@10,22 IV 12/07/24 22:00 12/12/24 09:49 10 ML Multi-Ingredient Ointment 1 applic DAILY TOP 12/09/24 10:00 12/12/24 09:53 1 APPLIC Fentanyl Citrate 250 ml @ 2.5 mls/hr Q24H IV 12/10/24 23:30 12/12/24 16:30 35 MLS/HR Metoclopramide HCl 10 mg Q8HR IV 12/11/24 09:45 12/12/24 13:56 10 MG Linezolid 300 ml @ 150 mls/hr Q12H IV 12/11/24 17:00 12/12/24 17:04 150 MLS/HR Meropenem 50 ml @ 17 mls/hr Q8HR IV 12/11/24 22:00 12/12/24 13:56 17 MLS/HR Propofol 100 ml @ 2.559 mls/ hr Q24H IV 12/11/24 19:00 12/12/24 16:30 25.59 MLS/HR Dextrose/Sodium Chloride 1,000 ml @ 75 mls/hr [id number] IV 12/11/24 19:00 12/12/24 09:35 75 MLS/HR Examination General: RASS -5, afebrile, mucosae are moist Cardiovascular: Normal S1 and S2. No murmurs, gallops or rubs Respiratory: Left-sided crackles GI: Soft, nontender, no organomegaly, normal bowel sounds : Orellana catheter n place, clear yellow urine in collection bag MSK/skin: Mobilization of limbs cannot be evaluated. Skin is dry and warm. IV accesses: A small 2 x 2 cm scab noticed at the heel of left leg Neurological: Orientation cannot be assessed. No apparent motor no sensitive deficits. Pupils are isocoric and reactive laboratory and microbiology Laboratory Tests 12/12/24 03:25 Test 12/12/24 03:25 Range/Units Serum Glucose 134 H 74-106 mg/dL Microbiology Date/Time Source Procedure Growth Status 12/11/24 14:40 Trachea Gram Stain Pending Resulted 12/11/24 14:40 Trachea Respiratory Culture - Preliminary Resulted 12/09/24 02:50 Blood Blood Culture - Preliminary NO GROWTH AFTER 72 HOURS OF INCUBATION. Resulted 12/02/24 14:31 Urine - Orellana Port Urine Culture - Final Complete 12/01/24 00:00 Sputum Endotracheal Wash Gram Stain - Final Complete 12/01/24 00:00 Respiratory Culture - Final Klebsiella pneumoniae Complete Problem List/Assessment/Plan Problem List/Assessment/Plan This is a 44-year-old male with past medical history of CVA, subdural hematoma, (status post RESEARCH LEADER shunt), depression, diabetes type 1, and bipolar disorder brought to the hospital due to nausea, vomiting, diarrhea and altered mental status. Had admitted with primary diagnosis of DKA/HHS. And had admitted and intubated on 12/01. NEURO: Acute metabolic encephalopathy, likely due to DKA/HHS/sepsis History of intracerebral hemorrhage, status post RESEARCH LEADER shunt Possible alcohol withdrawal History of epilepsy Bipolar disorder/depression * Head CT scan 12/01, no new intracranial abnormalities * RASS score -4 * Discontinue quetiapine and gabapentin * Continue home meds: Keppra, oxygen carbamazepine, valproic acid * Plan: Versed, fentanyl and propofol CARDIOVASCULAR: Sinus tachycardia RESPIRATORY: Acute hypoxic respiratory failure, likely due to pneumonia Pneumonia, due to Klebsiella pneumoniae Aspiration pneumonia * Chest x-ray shows bilateral haziness, with prominent bronchovascular marking * MV setting: VC mode, TV 400, RR 20, FiO2 30%, peep 5 * Plan: Mechanical ventilation, breathing treatment and IV antibiotic GENITOURINARY/FLUID: REYNALDO, likely VMN, resolved * Plan: NS with dextrose 10% at 75 mL/hour GASTROINTESTINAL/NUTRITION: Alcohol use disorder Possible alcohol withdrawal Possible refeeding syndrome Constipation * On 12/12, patient had blackish oral drainage, and stomach had high volume of residual, NG discontinued, and placed Dobbhoff tube * Plan: Thiamine, and folic acid and feeding through Dobbhoff tube INFECTIOUS DISEASE: Sepsis, likely due to pneumonia Pneumonia, due to Klebsiella pneumoniae Aspiration pneumonia Dental infection * Sputum culture 12/01, Klebsiella pneumoniae * Blood and urine culture 12/01, Shows no growth * Discontinued Rocephin (12/01-12/06), azithromycin (12/01-12/06) and clindamycin (12/04-12/06) * Discontinue vancomycin (12/06 given up to 12/11), and cefepime (12/07 given up to 12/11) * Plan: Meropenem (12/11), linezolid (12/11) HEMATOLOGY: Mild anemia, normocytic normochromic ENDOCRINE: Diabetes type 1 DKA/HHS * Plan: ISS, sodium phosphate METABOLIC: Hypokalemia Hyponatremia Hypomagnesemia Hypophosphatemia Hyperphosphatemia MSK/SKIN: Skin scab, on the heel of left leg New skin eruptions (xerosis/seborrheic dermatitis, possibly due to ICU related skin dryness), possible drug eruption or infection related * New erythematous/scaly rashes noted on checks, face and neck, no parts of body and mucosal involvement, patient is sedated and can not report any symptoms * Plan: Eucerin cream, monitoring eosinophils DIET: Tube feeding DVT prophylax: Lovenox GI prophylaxis: Protonix Bowel regimen: Lactulose LINES/DEVICES ETT: Intubated on 12/01 IV access: PICC line placed on 11/07 Drips: Fentanyl, Versed and propofol Orellana catheter: Placed on 12/01 OG-tube: Disposition: Continue ICU status Family: Patients friends (Durga and Tristen) updated at the bedside. Critical care time: Spent > 83 min, spent in direct critical care, including evaluation, management, review of labs/imaging, and multidisciplinary/family discussions, (excluding any procedures). Case discussed with Dr. Valentino Plan discussed with: Other My Orders My Orders Orders - SEAN DE LOS SANTOS Procedure Category Date Status Time Chest Xray 1 View XY 12/12/24 Resulted 04:00 Abg W/ Co-Ox RT 12/12/24 Logged 04:00 Blood Culture ALIA 12/12/24 In Process 08:02 Dietary Evaluation Review Comments: 1) Initiate thiamin, folic acid, and MVI supplementation d/t recent ETOH abuse 2) If patient remains NPO > 7 days, consider EN/TPN to meet at least 75% of estimated daily needs 3) If GI is preferred, initiate Glucerna 1.2 @ 60 mL/hr goal rate as tolerated. Flush with 150 mL Q6H. TF regimen will provide 1728 kcals, 86g Pro, and 1759 mL free H2O (including flushes) per 24 hrs. Goal rate will meet ~87% estimated daily energy needs and ~72% estimated daily protein needs 4) Advance to 60g CCHO cardiac diet when medically feasible, pending ST approval 5) Collect HbA1c 6) Refer to outpatient RD/[facility] for diabetes education 7) Follow-up with cardiology, pulmonology, and psychiatry 8) Follow-up with social studies teacher r/t ETOH abuse 9) Continue to monitor I&O, labs, and skin integrity Expected Outcomes/Goals: 1) patient to receive nutritional support within 7 days of NPO status 2) labs and GI symptoms to improve 3) diet to advance 4) follow-up in 2-3 days Date of Service: Dec 12, 2024 Billing Provider: APRIL VALENTINO MD Common Visit Codes: [id number] CARE 30-74 MIN, [id number] CARE-EACH +30MIN Date of Service: Dec 12, 2024 Billing Provider: APRIL VALENTINO MD Common Visit Codes: [id number] CARE 30-74 MIN, [id number] CARE-EACH +30MIN SEAN DE LOS SANTOS Dec 12, 2024 19:01 APRIL VALENTINO MD Dec 13, 2024 14:08
[2024-12-12] MEDS: BISACODYL 10 MG RECT SUPP PR ONE (20:21)
[2024-12-13] VITALS (108 sets, daily range): BP systolic 93–145; BP diastolic 54–88; PULSE 71–96; RESP 12–29; TEMP 96.8–99.1; O2SAT 91–100
[2024-12-13 04:21] LABS: Hemoglobin 9.5 g/dL (13.5-17.5); Mean Corpuscular Hemoglobin 29.8 pg (28.0-32.0)
[2024-12-13 04:24] LABS: Hematocrit 29.2 % (41.0-53.0); Mean Corpuscular Volume 91.3 fL (80.0-100.0)
--- NOTE | 2024-12-13 04:34 | DVH ---
Exam: XY KUB ABDOMEN SINGLE VIEW Indication: verify dobbhoff placement Comparison: Previous study chest and abdomen radiographs Technique: 1 radiographic views of the abdomen. Findings: Enteric feeding tube and enteric decompressive tube similarly positioned, overlying stomach gas. Nono bstructive pattern of imaged bowel loops. The lower chest is better assessed on recent comparison imaging. Osseous structures are unchanged. Impression: 1. No significant change from the previous study. Enteric feeding and decompressive tubes terminate w ithin the stomach.
--- NOTE | 2024-12-13 04:37 | DVH ---
CHEST RADIOGRAPH Indication: Pneumonia Technique: 1 view Comparison: XY CHEST XRAY 1 VIEW on DOS: 12/12/24, XY CHEST PORTABLE on DOS: 12/11/24, XY CHEST XRAY 1 VIEW on DOS: 12/11/24, XY CHEST XRAY 1 VIEW on DOS: 12/10/24, XY CHEST XRAY 1 VIEW on DOS: 12/09/24 FINDINGS: Lines and Tubes: Unchanged. Lungs/Pleura: Developing right mid and basilar consolidations. Similar left basilar graded opacity, l eft pleural effusion, and bilateral perihilar interstitial thickening. Cardiomediastinum: Unchanged. Other: Unchanged osseous structures. IMPRESSION: 1. Developing multifocal right airspace disease suspicious for pneumonia. 2. Remaining pulmonary opacities and left pleural effusion are unchanged. 3. Stable support devices.
[2024-12-13 04:48] LABS: Alanine Aminotransferase 18 U/L (7-40); Anion Gap 11 (5-15); BUN/Creatinine Ratio 16.0 (10.0-20.0); Carbon Dioxide 25 mmol/L (20-31); Sodium 144 mmol/L (136-145); Total Protein 5.9 g/dL (5.7-8.2)
[2024-12-13 04:55] LABS: Albumin 2.9 g/dL (3.2-4.8); Alkaline Phosphatase 216 U/L (46-116); Bilirubin, Total < 0.2 mg/dL (0.2-1.0); Blood Urea Nitrogen 8 mg/dL (9-23); Calcium 8.4 mg/dL (8.7-10.4); Chloride 108 mmol/L (98-107); Glucose 187 mg/dL (74-106); Potassium 3.4 mmol/L (3.5-5.1)
[2024-12-13 05:24] LABS: Total Cells Counted 100.0 (100)
[2024-12-13 06:43] LABS: Base Excess 1.9 mmol/L (-2.0-3.0)
[2024-12-13] MEDS: FUROSEMIDE 20 MG/2 ML VIAL IV ONE (09:55)
[2024-12-13] MEDS: POTASSIUM CHL 20MEQ/100ML 100 ML IV SCH (10:00)
--- NOTE | 2024-12-13 17:03 | DVHPNRES ---
Progress Note Date Seen: Dec 13, 2024 Resident Creating Document: SEAN DE LOS SANTOS RESDIENT Medical Necessity Reason Pt with a Central, PICC or Fol: Yes The following are medically ne: Orellana Catheter Subjective Review of Systems This is a 44-year-old male with past medical history of asthma, CVA, intracerebral hemorrhage, subdural hematoma, (status post INCIDENT MANAGER shunt, 10 years back), depression, diabetes type 1, hypertension, seizure, bipolar disorder brought to the hospital due to altered mental status. Per patient's roommate, he has not been using his medicine since 1 week, and had developed nausea, vomiting and diarrhea since 3 days, and since 1 day has been altered. Denies fever, loss of consciousness, or any trauma. PMHx: asthma, CVA, intracerebral hemorrhage, subdural hematoma, (status post INCIDENT MANAGER shunt, 10 years back), depression, diabetes type 1, hypertension, seizure, bipolar disorder PSHx: INCIDENT MANAGER shunt (10 years back), had removed molar to 3 weeks back, had tracheostomy in 2019 (due to intracerebral hemorrhage) Social history: Smokes marijuana and drink heavy alcohol. Lives with friend at home. At baseline mobile, but does not work, on disability Home medication: Quetiapine, sertraline, gabapentin, insulin NPH, levetiracetam, oxcarbazepine, and hydroxyzine, noncompliant with the medicine Today, 12/13, Patient seen and examined at the bedside. Patient is sedated and on mechanical ventilation. Objective vital signs Vital Sign Date Time Temp Pulse Resp B/P (MAP) Pulse Ox O2 Delivery O2 Flow Rate FiO2 12/13/24 15:53 82 20 105/62 (76) 94 50 12/13/24 15:30 98.8 98.8 12/13/24 14:00 Mechanical Ventilator+ Total Intake and Output 12/12/24 12/12/24 12/13/24 15:00 23:00 07:00 Intake Total 1375.833 ml 1867.895 ml 1591.94 ml Output Total 750 ml 950 ml Balance 1375.833 ml 1117.895 ml 641.94 ml medications Current Medications Medications Dose Ordered Sig/Misa Route Start Time Stop Time Status Last Admin Dose Admin Midazolam HCl 50 ml @ 1 mls/hr Q24H IV 12/01/24 12:45 12/13/24 15:20 15 MLS/HR Dextrose 50 ml UD PRN IV 12/01/24 13:30 Cancel Insulin Glargine 15 units DAILY SC 12/02/24 10:00 Cancel Dextrose 50 ml UD PRN IV 12/01/24 16:45 Cancel Acetaminophen 650 mg Q6HP PRN PO 12/01/24 16:45 12/11/24 20:38 650 MG Famotidine 20 mg DAILY IV 12/02/24 10:00 12/13/24 09:55 20 MG Ipratropium [place] 0.5 mg Q4HR NEB 12/01/24 18:00 12/13/24 14:16 0.5 MG Albuterol 2.5 mg Q4HPRN PRN NEB 12/01/24 18:00 12/13/24 14:16 2.5 MG Diagnostic Test (Pha) 1 strip Q6HR 12/02/24 18:00 12/13/24 11:48 1 STRIP Insulin Human Regular Q6HR SC 12/02/24 18:00 12/13/24 11:58 2 UNITS Dextrose 50 ml UD PRN IV 12/02/24 15:45 Lorazepam 1 mg Q5MINP PRN IV 12/03/24 01:45 12/03/24 03:43 1 MG Enteral Nutritional Formula 1,000 ml 40ML/HR GT 12/03/24 09:30 12/09/24 22:32 1,000 ML Levetiracetam 100 ml @ 400 mls/hr BID IV 12/03/24 10:00 UNV Levetiracetam 750 mg BID PO 12/03/24 10:00 12/13/24 09:56 750 MG Thiamine HCl 100 mg DAILY IV 12/05/24 10:00 12/13/24 09:55 100 MG Enoxaparin Sodium 40 mg DAILY SC 12/05/24 10:00 12/13/24 09:56 40 MG Norepinephrine Bitartrate 250 ml @ 3.75 mls/hr Q24H IV 12/04/24 19:15 12/11/24 05:45 3.75 MLS/HR Lactulose 30 ml Q6HR GT 12/05/24 08:45 12/13/24 00:23 30 ML Valproate Sodium 500 mg BID GT 12/05/24 22:00 12/13/24 09:57 500 MG Carbamazepine 400 mg BID GT 12/05/24 22:00 12/13/24 10:11 400 MG Sodium Chloride 10 ml QSHIFT@10,22 IV 12/07/24 22:00 12/13/24 09:55 10 ML Multi-Ingredient Ointment 1 applic DAILY TOP 12/09/24 10:00 12/13/24 09:57 1 APPLIC Fentanyl Citrate 250 ml @ 2.5 mls/hr Q24H IV 12/10/24 23:30 12/13/24 13:07 35 MLS/HR Metoclopramide HCl 10 mg Q8HR IV 12/11/24 09:45 12/13/24 15:24 10 MG Linezolid 300 ml @ 150 mls/hr Q12H IV 12/11/24 17:00 12/13/24 04:38 150 MLS/HR Meropenem 50 ml @ 17 mls/hr Q8HR IV 12/11/24 22:00 12/13/24 15:24 17 MLS/HR Propofol 100 ml @ 2.559 mls/ hr Q24H IV 12/11/24 19:00 12/13/24 13:02 25.59 MLS/HR Examination General: RASS -5, afebrile, mucosae are moist Cardiovascular: Normal S1 and S2. No murmurs, gallops or rubs Respiratory: Left-sided crackles GI: Soft, nontender, no organomegaly, normal bowel sounds : Orellana catheter n place, clear yellow urine in collection bag MSK/skin: Mobilization of limbs cannot be evaluated. Skin is dry and warm. IV accesses: A small 2 x 2 cm scab noticed at the heel of left leg Neurological: Orientation cannot be assessed. No apparent motor no sensitive deficits. Pupils are isocoric and reactive laboratory and microbiology Laboratory Tests 12/13/24 03:30 Test 12/13/24 03:30 Range/Units Serum Glucose 187 H 74-106 mg/dL Microbiology Date/Time Source Procedure Growth Status 12/12/24 08:39 Blood Blood Culture - Preliminary NO GROWTH AFTER 24 HOURS OF INCUBATION. Resulted 12/11/24 14:40 Trachea Gram Stain - Final Resulted 12/11/24 14:40 Trachea Respiratory Culture - Preliminary Resulted 12/02/24 14:31 Urine - Orellana Port Urine Culture - Final Complete 12/01/24 00:00 Sputum Endotracheal Wash Gram Stain - Final Complete 12/01/24 00:00 Respiratory Culture - Final Klebsiella pneumoniae Complete Problem List/Assessment/Plan Problem List/Assessment/Plan This is a 44-year-old male with past medical history of CVA, subdural hematoma, (status post INCIDENT MANAGER shunt), depression, diabetes type 1, and bipolar disorder brought to the hospital due to nausea, vomiting, diarrhea and altered mental status. Had admitted with primary diagnosis of DKA/HHS. And had admitted and intubated on 12/01. NEURO: Acute metabolic encephalopathy, likely due to DKA/HHS/sepsis History of intracerebral hemorrhage, status post INCIDENT MANAGER shunt Possible alcohol withdrawal History of epilepsy Bipolar disorder/depression * Head CT scan 12/01, no new intracranial abnormalities * RASS score -4 * Discontinue quetiapine and gabapentin * Continue home meds: Keppra, oxygen carbamazepine, valproic acid * Plan: Versed, fentanyl and propofol CARDIOVASCULAR: Sinus tachycardia RESPIRATORY: Acute hypoxic respiratory failure, likely due to pneumonia Pneumonia, due to Klebsiella pneumoniae Aspiration pneumonia * Chest x-ray shows bilateral haziness, with prominent bronchovascular marking * MV setting: VC mode, TV 400, RR 20, FiO2 30%, peep 5 * Plan: Mechanical ventilation, breathing treatment and IV antibiotic, and tracheostomy GENITOURINARY/FLUID: REYNALDO, likely VMN, resolved * Plan: NS with dextrose 10% at 75 mL/hour GASTROINTESTINAL/NUTRITION: Alcohol use disorder Possible alcohol withdrawal Possible refeeding syndrome Constipation * On 12/12, patient had blackish oral drainage, and stomach had high volume of residual, NG discontinued, and placed Dobbhoff tube * Plan: Thiamine, and folic acid and feeding through Dobbhoff tube INFECTIOUS DISEASE: Sepsis, likely due to pneumonia Pneumonia, due to Klebsiella pneumoniae Aspiration pneumonia Dental infection * Sputum culture 12/01, Klebsiella pneumoniae * Blood and urine culture 12/01, Shows no growth * Discontinued Rocephin (12/01-12/06), azithromycin (12/01-12/06) and clindamycin (12/04-12/06) * Discontinue vancomycin (12/06 given up to 12/11), and cefepime (12/07 given up to 12/11) * Plan: Meropenem (12/11), linezolid (12/11) HEMATOLOGY: Mild anemia, normocytic normochromic ENDOCRINE: Diabetes type 1 DKA/HHS * Plan: ISS, sodium phosphate METABOLIC: Hypokalemia Hyponatremia Hypomagnesemia Hypophosphatemia Hyperphosphatemia MSK/SKIN: Skin scab, on the heel of left leg New skin eruptions (xerosis/seborrheic dermatitis, possibly due to ICU related skin dryness), possible drug eruption or infection related * New erythematous/scaly rashes noted on checks, face and neck, no parts of body and mucosal involvement, patient is sedated and can not report any symptoms * Plan: Eucerin cream, monitoring eosinophils DIET: Tube feeding DVT prophylax: Lovenox GI prophylaxis: Protonix Bowel regimen: Lactulose LINES/DEVICES ETT: Intubated on 12/01 IV access: PICC line placed on 11/07 Drips: Fentanyl, Versed and propofol Orellana catheter: Placed on 12/01 Disposition: Continue ICU status Family: Patients friends (Durga and Tristen) updated at the bedside. Critical care time: Spent > 81 min, spent in direct critical care, including evaluation, management, review of labs/imaging, and multidisciplinary/family discussions, (excluding any procedures). Case discussed with Dr. Valentino Plan discussed with: Other My Orders My Orders Orders - SEAN DE LOS SANTOS Procedure Category Date Status Time Chest Xray 1 View XY 12/13/24 Resulted 04:00 Abg W/ Co-Ox RT 12/13/24 Logged 04:00 Kub Abdomen Single XY 12/13/24 Resulted View 04:00 Communication Order ORDERS 12/12/24 Transmitted 19:52 Dietary Evaluation Review Comments: 1) Initiate thiamin, folic acid, and MVI supplementation d/t recent ETOH abuse 2) If patient remains NPO > 7 days, consider EN/TPN to meet at least 75% of estimated daily needs 3) If GI is preferred, initiate Glucerna 1.2 @ 60 mL/hr goal rate as tolerated. Flush with 150 mL Q6H. TF regimen will provide 1728 kcals, 86g Pro, and 1759 mL free H2O (including flushes) per 24 hrs. Goal rate will meet ~87% estimated daily energy needs and ~72% estimated daily protein needs 4) Advance to 60g CCHO cardiac diet when medically feasible, pending ST approval 5) Collect HbA1c 6) Refer to outpatient RD/[facility] for diabetes education 7) Follow-up with cardiology, pulmonology, and psychiatry 8) Follow-up with social group worker r/t ETOH abuse 9) Continue to monitor I&O, labs, and skin integrity Expected Outcomes/Goals: 1) patient to receive nutritional support within 7 days of NPO status 2) labs and GI symptoms to improve 3) diet to advance 4) follow-up in 2-3 days Date of Service: Dec 13, 2024 Billing Provider: APRIL VALENTINO MD Common Visit Codes: [id number] CARE 30-74 MIN, [id number] CARE-EACH +30MIN SEAN DE LOS SANTOS RESDIYANG Dec 13, 2024 17:03 APRIL VALENTINO MD Dec 14, 2024 11:45
[2024-12-13 19:41] LABS: INR 1.01 (0.9-1.15); Prothrombin Time 10.7 sec (9.3-11.8)
[2024-12-14] VITALS (107 sets, daily range): BP systolic 97–177; BP diastolic 58–100; PULSE 70–133; RESP 14–34; TEMP 96.6–102; O2SAT 90–97
[2024-12-14 03:47] LABS: Mean Corpuscular Volume 89.0 fL (80.0-100.0)
[2024-12-14 03:51] LABS: Hematocrit 30.7 % (41.0-53.0); Hemoglobin 10.5 g/dL (13.5-17.5); Mean Corpuscular Hemoglobin 30.4 pg (28.0-32.0)
[2024-12-14 04:19] LABS: Alanine Aminotransferase 17 U/L (7-40); Anion Gap 13 (5-15); BUN/Creatinine Ratio 10.5 (10.0-20.0); Calcium 9.0 mg/dL (8.7-10.4); Carbon Dioxide 26 mmol/L (20-31); Chloride 106 mmol/L (98-107); Sodium 145 mmol/L (136-145); Total Protein 6.3 g/dL (5.7-8.2)
[2024-12-14 04:30] LABS: Albumin 3.1 g/dL (3.2-4.8); Alkaline Phosphatase 226 U/L (46-116); Bilirubin, Total < 0.2 mg/dL (0.2-1.0); Blood Urea Nitrogen 6 mg/dL (9-23); Glucose 173 mg/dL (74-106); Potassium 3.4 mmol/L (3.5-5.1)
--- NOTE | 2024-12-14 05:39 | DVH ---
CHEST RADIOGRAPH Indication: Pneumonia Technique: Single frontal view of the chest was obtained COMPARISON: XY CHEST XRAY 1 VIEW on DOS: 12/13/24, XY CHEST XRAY 1 VIEW on DOS: 12/12/24, XY CHEST PORT ABLE on DOS: 12/11/24, XY CHEST XRAY 1 VIEW on DOS: 12/11/24, XY CHEST XRAY 1 VIEW on DOS: 12/10/24 FINDINGS: Lines and Tubes: Endotracheal tube, enteric catheter, right central venous catheter and right PICC in satisfactory position. Lungs: Unchanged multifocal airspace disease. Pleura: No effusion. No pneumothorax. Cardiomediastinal contours: Unremarkable. Bones: Unremarkable. IMPRESSION: Lines and tubes in satisfactory position. No significant interval change.
[2024-12-14 06:04] LABS: Total Cells Counted 100.0 (100)
[2024-12-14 06:43] LABS: Base Excess -2.0 mmol/L (-2.0-3.0)
[2024-12-14] MEDS: MAGNESIUM SULFATE 1GM/100ML 100 ML IV ONE (08:29)
[2024-12-14] MEDS: POTASSIUM CHL 20MEQ/100ML 100 ML IV SCH (09:17)
[2024-12-14] MEDS: METOCLOPRAMIDE HCL 5MG/ml INJ 2ml VIAL IV SCH (15:34)
--- NOTE | 2024-12-14 16:15 | DVH ---
Exam: XY KUB ABDOMEN SINGLE VIEW Indication: Dobhoff Placement Comparison: XY KUB ABDOMEN SINGLE VIEW on DOS: 12/13/24, XY KUB ABDOMEN SINGLE VIEW on DOS: 12/12/24, C T ABD PELVIS WO/W on DOS: 06/29/24, CT CT AB PEL WO CON-NO ORAL OR IV on DOS: 12/31/22 Technique: 1 radiographic views of the abdomen. Findings: Feeding tube at the level of the gastric antrum/ proximal duodenum. Nonspecific bowel-gas pattern. There is no definite evidence for pneumoperitoneum. No abnormal calcifications noted. Impression: Feeding tube at the level of the gastric antrum/ proximal duodenum.
--- NOTE | 2024-12-14 17:23 | DVHPNRES ---
Progress Note Date Seen: Dec 14, 2024 Resident Creating Document: SEAN DE LOS SANTOS RESDIENT Medical Necessity Reason Pt with a Central, PICC or Fol: Yes The following are medically ne: Orellana Catheter Subjective Review of Systems This is a 44-year-old male with past medical history of asthma, CVA, intracerebral hemorrhage, subdural hematoma, (status post VENDOR SPECIALIST shunt, 10 years back), depression, diabetes type 1, hypertension, seizure, bipolar disorder brought to the hospital due to altered mental status. Per patient's roommate, he has not been using his medicine since 1 week, and had developed nausea, vomiting and diarrhea since 3 days, and since 1 day has been altered. Denies fever, loss of consciousness, or any trauma. PMHx: asthma, CVA, intracerebral hemorrhage, subdural hematoma, (status post VENDOR SPECIALIST shunt, 10 years back), depression, diabetes type 1, hypertension, seizure, bipolar disorder PSHx: VENDOR SPECIALIST shunt (10 years back), had removed molar to 3 weeks back, had tracheostomy in 2019 (due to intracerebral hemorrhage) Social history: Smokes marijuana and drink heavy alcohol. Lives with friend at home. At baseline mobile, but does not work, on disability Home medication: Quetiapine, sertraline, gabapentin, insulin NPH, levetiracetam, oxcarbazepine, and hydroxyzine, noncompliant with the medicine Today, 12/14, Patient seen and examined at the bedside. Patient is sedated and on mechanical ventilation. Objective vital signs Vital Sign Date Time Temp Pulse Resp B/P (MAP) Pulse Ox O2 Delivery O2 Flow Rate FiO2 12/14/24 16:50 116/75 12/14/24 16:00 21 94 Mechanical Ventilator+ 55 55 12/14/24 16:00 80 12/14/24 14:45 96.8 206.2 Total Intake and Output 12/13/24 12/13/24 12/14/24 15:00 23:00 07:00 Intake Total 877.92 ml 1166.008 ml 1190.328 ml Output Total 1550 ml 900 ml Balance 877.92 ml -383.992 ml 290.328 ml medications Current Medications Medications Dose Ordered Sig/Misa Route Start Time Stop Time Status Last Admin Dose Admin Midazolam HCl 50 ml @ 1 mls/hr Q24H IV 12/01/24 12:45 12/14/24 14:53 15 MLS/HR Dextrose 50 ml UD PRN IV 12/01/24 13:30 Cancel Insulin Glargine 15 units DAILY SC 12/02/24 10:00 Cancel Dextrose 50 ml UD PRN IV 12/01/24 16:45 Cancel Acetaminophen 650 mg Q6HP PRN PO 12/01/24 16:45 12/14/24 07:34 650 MG Famotidine 20 mg DAILY IV 12/02/24 10:00 12/14/24 09:13 20 MG Ipratropium [place] 0.5 mg Q4HR NEB 12/01/24 18:00 12/14/24 13:33 0.5 MG Albuterol 2.5 mg Q4HPRN PRN NEB 12/01/24 18:00 12/14/24 13:33 2.5 MG Diagnostic Test (Pha) 1 strip Q6HR 12/02/24 18:00 12/14/24 12:07 1 STRIP Insulin Human Regular Q6HR SC 12/02/24 18:00 12/14/24 12:12 9 UNITS Dextrose 50 ml UD PRN IV 12/02/24 15:45 Lorazepam 1 mg Q5MINP PRN IV 12/03/24 01:45 12/03/24 03:43 1 MG Enteral Nutritional Formula 1,000 ml 40ML/HR GT 12/03/24 09:30 12/13/24 18:53 1,000 ML Levetiracetam 100 ml @ 400 mls/hr BID IV 12/03/24 10:00 UNV Thiamine HCl 100 mg DAILY IV 12/05/24 10:00 12/14/24 09:14 100 MG Enoxaparin Sodium 40 mg DAILY SC 12/05/24 10:00 12/14/24 09:14 40 MG Norepinephrine Bitartrate 250 ml @ 3.75 mls/hr Q24H IV 12/04/24 19:15 12/11/24 05:45 3.75 MLS/HR Lactulose 30 ml Q6HR GT 12/05/24 08:45 12/14/24 06:08 30 ML Valproate Sodium 500 mg BID GT 12/05/24 22:00 12/14/24 09:12 500 MG Carbamazepine 400 mg BID GT 12/05/24 22:00 12/14/24 09:15 400 MG Sodium Chloride 10 ml QSHIFT@10,22 IV 12/07/24 22:00 12/14/24 09:18 10 ML Multi-Ingredient Ointment 1 applic DAILY TOP 12/09/24 10:00 12/14/24 09:41 1 APPLIC Fentanyl Citrate 250 ml @ 2.5 mls/hr Q24H IV 12/10/24 23:30 12/14/24 10:49 35 MLS/HR Linezolid 300 ml @ 150 mls/hr Q12H IV 12/11/24 17:00 12/14/24 04:55 150 MLS/HR Meropenem 50 ml @ 17 mls/hr Q8HR IV 12/11/24 22:00 12/14/24 14:27 17 MLS/HR Propofol 100 ml @ 2.559 mls/ hr Q24H IV 12/11/24 19:00 12/14/24 16:50 25.59 MLS/HR Levetiracetam 750 mg BID PO 12/14/24 10:00 12/14/24 12:08 750 MG Metoclopramide HCl 5 mg Q8HR IV 12/14/24 14:00 12/14/24 15:34 5 MG Examination General: RASS -5, afebrile, mucosae are moist Cardiovascular: Normal S1 and S2. No murmurs, gallops or rubs Respiratory: Left-sided crackles GI: Soft, nontender, no organomegaly, normal bowel sounds : Orellana catheter n place, clear yellow urine in collection bag MSK/skin: Mobilization of limbs cannot be evaluated. Skin is dry and warm. IV accesses: A small 2 x 2 cm scab noticed at the heel of left leg Neurological: Orientation cannot be assessed. No apparent motor no sensitive deficits. Pupils are isocoric and reactive laboratory and microbiology Laboratory Tests 12/14/24 02:39 Test 12/14/24 02:39 Range/Units Serum Glucose 173 H 74-106 mg/dL Microbiology Date/Time Source Procedure Growth Status 12/12/24 08:39 Blood Blood Culture - Preliminary NO GROWTH AFTER 48 HOURS OF INCUBATION. Resulted 12/11/24 14:40 Trachea Gram Stain - Final Resulted 12/11/24 14:40 Trachea Respiratory Culture - Preliminary Resulted 12/02/24 14:31 Urine - Orellana Port Urine Culture - Final Complete 12/01/24 00:00 Sputum Endotracheal Wash Gram Stain - Final Complete 12/01/24 00:00 Respiratory Culture - Final Klebsiella pneumoniae Complete Labs and/or images reviewed: Labs reviewed by me, Image(s) reviewed by me Problem List/Assessment/Plan Problem List/Assessment/Plan This is a 44-year-old male with past medical history of CVA, subdural hematoma, (status post VENDOR SPECIALIST shunt), depression, diabetes type 1, and bipolar disorder brought to the hospital due to nausea, vomiting, diarrhea and altered mental status. Had admitted with primary diagnosis of DKA/HHS. And had admitted and intubated on 12/01. NEURO: Acute metabolic encephalopathy, likely due to DKA/HHS/sepsis History of intracerebral hemorrhage, status post VENDOR SPECIALIST shunt Possible alcohol withdrawal History of epilepsy Bipolar disorder/depression * Head CT scan 12/01, no new intracranial abnormalities * RASS score -4 * Discontinue quetiapine and gabapentin * Continue home meds: Keppra, oxygen carbamazepine, valproic acid * Plan: Versed, fentanyl and propofol CARDIOVASCULAR: Sinus tachycardia RESPIRATORY: Acute hypoxic respiratory failure, likely due to pneumonia Pneumonia, due to Klebsiella pneumoniae Aspiration pneumonia * Chest x-ray shows bilateral haziness, with prominent bronchovascular marking * MV setting: VC mode, TV 400, RR 20, FiO2 30%, peep 5 * Plan: Mechanical ventilation, breathing treatment and IV antibiotic, and tracheostomy on Wednesday GENITOURINARY/FLUID: REYNALDO, likely VMN, resolved * Plan: NS with dextrose 10% at 75 mL/hour GASTROINTESTINAL/NUTRITION: Alcohol use disorder Possible alcohol withdrawal Possible refeeding syndrome Constipation * On 12/12, patient had blackish oral drainage, and stomach had high volume of residual, NG discontinued, and placed Dobbhoff tube * Plan: Thiamine, and folic acid and feeding through Dobbhoff tube INFECTIOUS DISEASE: Sepsis, likely due to pneumonia Pneumonia, due to Klebsiella pneumoniae Aspiration pneumonia Dental infection * Sputum culture 12/01, Klebsiella pneumoniae * Blood and urine culture 12/01, Shows no growth * Discontinued Rocephin (12/01-12/06), azithromycin (12/01-12/06) and clindamycin (12/04-12/06) * Discontinue vancomycin (12/06 given up to 12/11), and cefepime (12/07 given up to 12/11) * Plan: Meropenem (12/11), linezolid (12/11) HEMATOLOGY: Mild anemia, normocytic normochromic ENDOCRINE: Diabetes type 1 DKA/HHS * Plan: ISS, sodium phosphate METABOLIC: Hypokalemia Hyponatremia Hypomagnesemia Hypophosphatemia Hyperphosphatemia MSK/SKIN: Skin scab, on the heel of left leg New skin eruptions (xerosis/seborrheic dermatitis, possibly due to ICU related skin dryness), possible drug eruption or infection related * New erythematous/scaly rashes noted on checks, face and neck, no parts of body and mucosal involvement, patient is sedated and can not report any symptoms * Plan: Eucerin cream, monitoring eosinophils DIET: Tube feeding DVT prophylax: Lovenox GI prophylaxis: Protonix Bowel regimen: Lactulose LINES/DEVICES ETT: Intubated on 12/01 IV access: PICC line placed on 11/07 Drips: Fentanyl, Versed and propofol Orellana catheter: Placed on 12/01 Disposition: Continue ICU status Family: Patients friends (Durga and Tristen) updated at the bedside. Critical care time: Spent > 83 min, spent in direct critical care, including evaluation, management, review of labs/imaging, and multidisciplinary/family discussions, (excluding any procedures). Case discussed with Dr. Valentino Plan discussed with: Other My Orders My Orders Orders - SEAN DE LOS SANTOS RESDIYANG Procedure Category Date Status Time Levetiracetam Oral PHA 12/14/24 In Process Solution (Keppra Oral 10:00 Dietary Evaluation Review Comments: 1) Initiate thiamin, folic acid, and MVI supplementation d/t recent ETOH abuse 2) If patient remains NPO > 7 days, consider EN/TPN to meet at least 75% of estimated daily needs 3) If GI is preferred, initiate Glucerna 1.2 @ 60 mL/hr goal rate as tolerated. Flush with 150 mL Q6H. TF regimen will provide 1728 kcals, 86g Pro, and 1759 mL free H2O (including flushes) per 24 hrs. Goal rate will meet ~87% estimated daily energy needs and ~72% estimated daily protein needs 4) Advance to 60g CCHO cardiac diet when medically feasible, pending ST approval 5) Collect HbA1c 6) Refer to outpatient RD/CD[facility] for diabetes education 7) Follow-up with cardiology, pulmonology, and psychiatry 8) Follow-up with social security specialist r/t ETOH abuse 9) Continue to monitor I&O, labs, and skin integrity Expected Outcomes/Goals: 1) patient to receive nutritional support within 7 days of NPO status 2) labs and GI symptoms to improve 3) diet to advance 4) follow-up in 2-3 days Date of Service: Dec 14, 2024 Billing Provider: APRIL VALENTINO MD Common Visit Codes: 54819-[id number] CARE 30-74 MIN, [id number] CARE-EACH +30MIN SEAN DE LOS SANTOS RESDIENT Dec 14, 2024 17:23 APRIL VALENTINO MD Dec 16, 2024 11:57
[2024-12-15] VITALS (94 sets, daily range): BP systolic 93–173; BP diastolic 55–107; PULSE 68–107; RESP 13–24; TEMP 97–100.4; O2SAT 91–100
[2024-12-15 03:58] LABS: INR 1.01 (0.9-1.15); Partial Thromboplastin Time 30.2 SEC (24.5-34.5); Prothrombin Time 10.7 sec (9.3-11.8)
[2024-12-15 04:03] LABS: Hematocrit 28.9 % (41.0-53.0); Hemoglobin 9.7 g/dL (13.5-17.5); Mean Corpuscular Hemoglobin 29.7 pg (28.0-32.0); Mean Corpuscular Volume 88.2 fL (80.0-100.0)
[2024-12-15 04:10] LABS: Alanine Aminotransferase 13 U/L (7-40); Anion Gap 9 (5-15); Calcium 9.0 mg/dL (8.7-10.4); Carbon Dioxide 30 mmol/L (20-31); Chloride 106 mmol/L (98-107); Potassium 3.7 mmol/L (3.5-5.1); Sodium 145 mmol/L (136-145); Total Protein 6.2 g/dL (5.7-8.2)
[2024-12-15 04:25] LABS: Albumin 3.0 g/dL (3.2-4.8); Alkaline Phosphatase 244 U/L (46-116); BUN/Creatinine Ratio 8.8 (10.0-20.0); Bilirubin, Total < 0.2 mg/dL (0.2-1.0); Blood Urea Nitrogen < 5 mg/dL (9-23); Glucose 210 mg/dL (74-106)
--- NOTE | 2024-12-15 05:37 | DVH ---
CHEST RADIOGRAPH Indication: Pneumonia Technique: 1 view Comparison: XY CHEST XRAY 1 VIEW on DOS: 12/14/24, XY CHEST XRAY 1 VIEW on DOS: 12/13/24, XY CHEST XRAY 1 VIEW on DOS: 12/12/24, XY CHEST PORTABLE on DOS: 12/11/24, XY CHEST XRAY 1 VIEW on DOS: 12/11/24 FINDINGS: Lines and Tubes: Unchanged. Lungs/Pleura: Unchanged. Cardiomediastinum: Unchanged. Other: Unchanged osseous structures. IMPRESSION: No significant change from the previous day. Stable support devices. Persistent bilateral mixed pul monary opacities and [id number] pleural effusions.
[2024-12-15 06:03] LABS: Total Cells Counted 100.0 (100)
[2024-12-15 08:13] LABS: Base Excess 4.7 mmol/L (-2.0-3.0)
--- NOTE | 2024-12-15 10:48 | DVHPNRES ---
Progress Note Date Seen: Dec 15, 2024 Resident Creating Document: SEAN DE LOS SANTOS RESDIENT Medical Necessity Reason Pt with a Central, PICC or Fol: Yes The following are medically ne: Orellana Catheter Subjective Review of Systems This is a 44-year-old male with past medical history of asthma, CVA, intracerebral hemorrhage, subdural hematoma, (status post MOLDING PLASTERER shunt, 10 years back), depression, diabetes type 1, hypertension, seizure, bipolar disorder brought to the hospital due to altered mental status. Per patient's roommate, he has not been using his medicine since 1 week, and had developed nausea, vomiting and diarrhea since 3 days, and since 1 day has been altered. Denies fever, loss of consciousness, or any trauma. PMHx: asthma, CVA, intracerebral hemorrhage, subdural hematoma, (status post MOLDING PLASTERER shunt, 10 years back), depression, diabetes type 1, hypertension, seizure, bipolar disorder PSHx: MOLDING PLASTERER shunt (10 years back), had removed molar to 3 weeks back, had tracheostomy in 2019 (due to intracerebral hemorrhage) Social history: Smokes marijuana and drink heavy alcohol. Lives with friend at home. At baseline mobile, but does not work, on disability Home medication: Quetiapine, sertraline, gabapentin, insulin NPH, levetiracetam, oxcarbazepine, and hydroxyzine, noncompliant with the medicine Today, 12/15, Patient seen and examined at the bedside. Patient is sedated and on mechanical ventilation. Objective vital signs Vital Sign Date Time Temp Pulse Resp B/P (MAP) Pulse Ox O2 Delivery O2 Flow Rate FiO2 12/15/24 10:30 98.2 68 20 97/59 (72) 94 208.8 12/15/24 10:02 55 12/15/24 10:00 Mechanical Ventilator+ Total Intake and Output 12/14/24 12/14/24 12/15/24 15:00 23:00 07:00 Intake Total 747.536 ml 1395.824 ml 1172.236 ml Output Total 900 ml 1900 ml Balance 747.536 ml 495.824 ml -727.764 ml medications Current Medications Medications Dose Ordered Sig/Misa Route Start Time Stop Time Status Last Admin Dose Admin Midazolam HCl 50 ml @ 1 mls/hr Q24H IV 12/01/24 12:45 12/15/24 08:18 15 MLS/HR Dextrose 50 ml UD PRN IV 12/01/24 13:30 Cancel Insulin Glargine 15 units DAILY SC 12/02/24 10:00 Cancel Dextrose 50 ml UD PRN IV 12/01/24 16:45 Cancel Acetaminophen 650 mg Q6HP PRN PO 12/01/24 16:45 12/14/24 07:34 650 MG Famotidine 20 mg DAILY IV 12/02/24 10:00 12/15/24 09:29 20 MG Ipratropium [place] 0.5 mg Q4HR NEB 12/01/24 18:00 12/15/24 10:02 0.5 MG Albuterol 2.5 mg Q4HPRN PRN NEB 12/01/24 18:00 12/14/24 18:13 2.5 MG Diagnostic Test (Pha) 1 strip Q6HR 12/02/24 18:00 12/15/24 05:26 1 STRIP Insulin Human Regular Q6HR SC 12/02/24 18:00 12/15/24 05:32 6 UNITS Dextrose 50 ml UD PRN IV 12/02/24 15:45 Lorazepam 1 mg Q5MINP PRN IV 12/03/24 01:45 12/03/24 03:43 1 MG Enteral Nutritional Formula 1,000 ml 40ML/HR GT 12/03/24 09:30 12/15/24 07:46 1,000 ML Levetiracetam 100 ml @ 400 mls/hr BID IV 12/03/24 10:00 UNV Thiamine HCl 100 mg DAILY IV 12/05/24 10:00 12/15/24 09:29 100 MG Enoxaparin Sodium 40 mg DAILY SC 12/05/24 10:00 12/14/24 09:14 40 MG Norepinephrine Bitartrate 250 ml @ 3.75 mls/hr Q24H IV 12/04/24 19:15 12/11/24 05:45 3.75 MLS/HR Lactulose 30 ml Q6HR GT 12/05/24 08:45 12/14/24 23:14 30 ML Valproate Sodium 500 mg BID GT 12/05/24 22:00 12/15/24 09:29 500 MG Carbamazepine 400 mg BID GT 12/05/24 22:00 12/15/24 09:30 400 MG Sodium Chloride 10 ml QSHIFT@10,22 IV 12/07/24 22:00 12/15/24 09:29 10 ML Multi-Ingredient Ointment 1 applic DAILY TOP 12/09/24 10:00 12/15/24 09:30 1 APPLIC Fentanyl Citrate 250 ml @ 2.5 mls/hr Q24H IV 12/10/24 23:30 12/15/24 08:31 35 MLS/HR Linezolid 300 ml @ 150 mls/hr Q12H IV 12/11/24 17:00 12/15/24 04:14 150 MLS/HR Meropenem 50 ml @ 17 mls/hr Q8HR IV 12/11/24 22:00 12/15/24 05:27 17 MLS/HR Propofol 100 ml @ 2.559 mls/ hr Q24H IV 12/11/24 19:00 12/15/24 09:18 25.59 MLS/HR Levetiracetam 750 mg BID PO 12/14/24 10:00 12/15/24 09:29 750 MG Metoclopramide HCl 5 mg Q8HR IV 12/14/24 14:00 12/15/24 05:27 5 MG Examination General: RASS -5, afebrile, mucosae are moist Cardiovascular: Normal S1 and S2. No murmurs, gallops or rubs Respiratory: Left-sided crackles GI: Soft, nontender, no organomegaly, normal bowel sounds : Orellana catheter n place, clear yellow urine in collection bag MSK/skin: Mobilization of limbs cannot be evaluated. Skin is dry and warm. IV accesses: A small 2 x 2 cm scab noticed at the heel of left leg Neurological: Orientation cannot be assessed. No apparent motor no sensitive deficits. Pupils are isocoric and reactive laboratory and microbiology Laboratory Tests 12/15/24 03:07 Test 12/15/24 03:07 Range/Units Serum Glucose 210 H 74-106 mg/dL Microbiology Date/Time Source Procedure Growth Status 12/12/24 08:39 Blood Blood Culture - Preliminary NO GROWTH AFTER 72 HOURS OF INCUBATION. Resulted 12/11/24 14:40 Trachea Gram Stain - Final Resulted 12/11/24 14:40 Trachea Respiratory Culture - Preliminary Resulted 12/02/24 14:31 Urine - Orellana Port Urine Culture - Final Complete 12/01/24 00:00 Sputum Endotracheal Wash Gram Stain - Final Complete 12/01/24 00:00 Respiratory Culture - Final Klebsiella pneumoniae Complete Labs and/or images reviewed: Image(s) reviewed by me Problem List/Assessment/Plan Problem List/Assessment/Plan This is a 44-year-old male with past medical history of CVA, subdural hematoma, (status post MOLDING PLASTERER shunt), depression, diabetes type 1, and bipolar disorder brought to the hospital due to nausea, vomiting, diarrhea and altered mental status. Had admitted with primary diagnosis of DKA/HHS. And had admitted and intubated on 12/01. NEURO: Acute metabolic encephalopathy, likely due to DKA/HHS/sepsis History of intracerebral hemorrhage, status post MOLDING PLASTERER shunt Possible alcohol withdrawal History of epilepsy Bipolar disorder/depression * Head CT scan 12/01, no new intracranial abnormalities * RASS score -4 * Discontinue quetiapine and gabapentin * Continue home meds: Keppra, oxygen carbamazepine, valproic acid * Plan: Versed, fentanyl and propofol CARDIOVASCULAR: Sinus tachycardia RESPIRATORY: Acute hypoxic respiratory failure, likely due to pneumonia Pneumonia, due to Klebsiella pneumoniae Aspiration pneumonia * Chest x-ray shows bilateral haziness, with prominent bronchovascular marking * MV setting: VC mode, TV 400, RR 20, FiO2 30%, peep 5 * Plan: Mechanical ventilation, breathing treatment and IV antibiotic, and tracheostomy on Wednesday GENITOURINARY/FLUID: REYNALDO, likely VMN, resolved * Plan: NS with dextrose 10% at 75 mL/hour GASTROINTESTINAL/NUTRITION: Alcohol use disorder Possible alcohol withdrawal Possible refeeding syndrome Constipation * On 12/12, patient had blackish oral drainage, and stomach had high volume of residual, NG discontinued, and placed Dobbhoff tube * Plan: Thiamine, and folic acid and feeding through Dobbhoff tube INFECTIOUS DISEASE: Sepsis, likely due to pneumonia Pneumonia, due to Klebsiella pneumoniae Aspiration pneumonia Dental infection * Sputum culture 12/01, Klebsiella pneumoniae * Blood and urine culture 12/01, Shows no growth * Discontinued Rocephin (12/01-12/06), azithromycin (12/01-12/06) and clindamycin (12/04-12/06) * Discontinue vancomycin (12/06 given up to 12/11), and cefepime (12/07 given up to 12/11) * Plan: Meropenem (12/11), linezolid (12/11) HEMATOLOGY: Mild anemia, normocytic normochromic ENDOCRINE: Diabetes type 1 DKA/HHS * Plan: ISS, sodium phosphate METABOLIC: Hypokalemia Hyponatremia Hypomagnesemia Hypophosphatemia Hyperphosphatemia MSK/SKIN: Skin scab, on the heel of left leg New skin eruptions (xerosis/seborrheic dermatitis, possibly due to ICU related skin dryness), possible drug eruption or infection related * New erythematous/scaly rashes noted on checks, face and neck, no parts of body and mucosal involvement, patient is sedated and can not report any symptoms * Plan: Eucerin cream, monitoring eosinophils DIET: Tube feeding DVT prophylax: Lovenox GI prophylaxis: Protonix Bowel regimen: Lactulose LINES/DEVICES ETT: Intubated on 12/01 IV access: PICC line placed on 11/07 Drips: Fentanyl, Versed and propofol Orellana catheter: Placed on 12/01 Disposition: Continue ICU status Family: Patients friends (Durga and Tristen) updated at the bedside. Critical care time: Spent > 83 min, spent in direct critical care, including evaluation, management, review of labs/imaging, and multidisciplinary/family discussions, (excluding any procedures). Case discussed with Dr. Porter Plan discussed with: Patient, Other My Orders My Orders Orders - SEAN DE LOS SANTOS RESDIYANG Procedure Category Date Status Time Chest Xray 1 View XY 12/15/24 Resulted 04:00 Abg W/ Co-Ox RT 12/15/24 Logged 04:00 Levetiracetam (Keppra) LAB 12/15/24 In Process 04:00 Dietary Evaluation Review Comments: 1) Initiate thiamin, folic acid, and MVI supplementation d/t recent ETOH abuse 2) If patient remains NPO > 7 days, consider EN/TPN to meet at least 75% of estimated daily needs 3) If GI is preferred, initiate Glucerna 1.2 @ 60 mL/hr goal rate as tolerated. Flush with 150 mL Q6H. TF regimen will provide 1728 kcals, 86g Pro, and 1759 mL free H2O (including flushes) per 24 hrs. Goal rate will meet ~87% estimated daily energy needs and ~72% estimated daily protein needs 4) Advance to 60g CCHO cardiac diet when medically feasible, pending ST approval 5) Collect HbA1c 6) Refer to outpatient RD/[facility] for diabetes education 7) Follow-up with cardiology, pulmonology, and psychiatry 8) Follow-up with director of social services r/t ETOH abuse 9) Continue to monitor I&O, labs, and skin integrity Expected Outcomes/Goals: 1) patient to receive nutritional support within 7 days of NPO status 2) labs and GI symptoms to improve 3) diet to advance 4) follow-up in 2-3 days Date of Service: Dec 15, 2024 Billing Provider: BRANNON CARR MD Common Visit Codes: NOT BILLABLE SEAN DE LOS SANTOS Dec 15, 2024 10:48 BRANNON CARR MD Jan 01, 2025 15:39
[2024-12-15] MEDS: VALPROATE INJ 500 MG in SODIUM CHL 0.9% 100 ML IV SCH (22:00)
[2024-12-16] VITALS (107 sets, daily range): BP systolic 98–163; BP diastolic 45–110; PULSE 69–132; RESP 11–23; TEMP 97–100.4; O2SAT 93–98
[2024-12-16 03:34] LABS: Hematocrit 29.3 % (41.0-53.0); Hemoglobin 10.0 g/dL (13.5-17.5); Mean Corpuscular Hemoglobin 29.9 pg (28.0-32.0); Mean Corpuscular Volume 87.7 fL (80.0-100.0)
[2024-12-16 03:53] LABS: Alanine Aminotransferase 13 U/L (7-40); Anion Gap 10 (5-15); Chloride 102 mmol/L (98-107); Potassium 3.6 mmol/L (3.5-5.1); Sodium 143 mmol/L (136-145); Total Protein 6.2 g/dL (5.7-8.2)
[2024-12-16 03:57] LABS: Albumin 2.9 g/dL (3.2-4.8); Alkaline Phosphatase 238 U/L (46-116); BUN/Creatinine Ratio 8.9 (10.0-20.0); Bilirubin, Total < 0.2 mg/dL (0.2-1.0); Blood Urea Nitrogen < 5 mg/dL (9-23); Calcium 8.6 mg/dL (8.7-10.4); Carbon Dioxide 31 mmol/L (20-31); Glucose 231 mg/dL (74-106)
[2024-12-16 04:01] LABS: Total Cells Counted 100.0 (100)
[2024-12-16 06:50] LABS: Base Excess 9.3 mmol/L (-2.0-3.0)
[2024-12-16] MEDS ORDERED: ROCURONIUM 10MG/ML 10ML VIAL IV ONE (07:32)
--- NOTE | 2024-12-16 08:07 | DVH ---
CLINICAL INFORMATION: Pneumonia. TECHNIQUE: Single AP portable chest radiograph was obtained. COMPARISON: XY CHEST XRAY 1 VIEW on DOS: 12/15/24, XY CHEST XRAY 1 VIEW on DOS: 12/14/24, XY CHEST XRA Y 1 VIEW on DOS: 12/13/24 FINDINGS: Satisfactory positioning of the endotracheal tube, enteric tube, and right PICC. Ill-defined bilatera l airspace opacities have not significantly changed. No pneumothorax. No other significant interval change. IMPRESSION: No significant interval change as detailed above.
--- NOTE | 2024-12-16 09:06 | DVHPN2 ---
Progress Note Date Seen: Dec 16, 2024 Medical Necessity Reason Pt with a Central, PICC or Fol: No The following are medically ne: Orellana Catheter Objective vital signs Vital Sign Date Time Temp Pulse Resp B/P (MAP) Pulse Ox O2 Delivery O2 Flow Rate FiO2 12/16/24 07:39 126/74 12/16/24 06:20 76 23 96 50 12/16/24 06:00 Mechanical Ventilator+ 12/16/24 06:00 98.8 209.8 Total Intake and Output 12/15/24 12/15/24 12/16/24 15:00 23:00 07:00 Intake Total 706.360 ml 1190.783 ml 1017.057 ml Output Total 450 ml 1650 ml Balance 706.360 ml 740.783 ml -632.943 ml medications Current Medications Medications Dose Ordered Sig/Misa Route Start Time Stop Time Status Last Admin Dose Admin Midazolam HCl 50 ml @ 1 mls/hr Q24H IV 12/01/24 12:45 12/16/24 07:38 15 MLS/HR Dextrose 50 ml UD PRN IV 12/01/24 13:30 Cancel Insulin Glargine 15 units DAILY SC 12/02/24 10:00 Cancel Dextrose 50 ml UD PRN IV 12/01/24 16:45 Cancel Acetaminophen 650 mg Q6HP PRN PO 12/01/24 16:45 12/15/24 23:25 650 MG Famotidine 20 mg DAILY IV 12/02/24 10:00 12/15/24 09:29 20 MG Ipratropium [place] 0.5 mg Q4HR NEB 12/01/24 18:00 12/16/24 06:20 0.5 MG Albuterol 2.5 mg Q4HPRN PRN NEB 12/01/24 18:00 12/16/24 06:20 2.5 MG Diagnostic Test (Pha) 1 strip Q6HR 12/02/24 18:00 12/16/24 04:59 1 STRIP Insulin Human Regular Q6HR SC 12/02/24 18:00 12/16/24 06:24 6 UNITS Dextrose 50 ml UD PRN IV 12/02/24 15:45 Lorazepam 1 mg Q5MINP PRN IV 12/03/24 01:45 12/03/24 03:43 1 MG Enteral Nutritional Formula 1,000 ml 40ML/HR GT 12/03/24 09:30 12/15/24 07:46 1,000 ML Levetiracetam 100 ml @ 400 mls/hr BID IV 12/03/24 10:00 UNV Thiamine HCl 100 mg DAILY IV 12/05/24 10:00 12/15/24 09:29 100 MG Enoxaparin Sodium 40 mg DAILY SC 12/05/24 10:00 12/14/24 09:14 40 MG Norepinephrine Bitartrate 250 ml @ 3.75 mls/hr Q24H IV 12/04/24 19:15 12/11/24 05:45 3.75 MLS/HR Lactulose 30 ml Q6HR GT 12/05/24 08:45 12/14/24 23:14 30 ML Carbamazepine 400 mg BID GT 12/05/24 22:00 12/15/24 09:30 400 MG Sodium Chloride 10 ml QSHIFT@, IV 12/07/24 22:00 12/15/24 21:43 10 ML Multi-Ingredient Ointment 1 applic DAILY TOP 12/09/24 10:00 12/15/24 09:30 1 APPLIC Fentanyl Citrate 250 ml @ 2.5 mls/hr Q24H IV 12/10/24 23:30 12/16/24 04:23 35 MLS/HR Linezolid 300 ml @ 150 mls/hr Q12H IV 12/11/24 17:00 12/16/24 04:25 150 MLS/HR Meropenem 50 ml @ 17 mls/hr Q8HR IV 12/11/24 22:00 12/16/24 04:59 17 MLS/HR Propofol 100 ml @ 2.559 mls/ hr Q24H IV 12/11/24 19:00 12/16/24 07:39 25.59 MLS/HR Levetiracetam 750 mg BID PO 12/14/24 10:00 12/15/24 21:43 750 MG Metoclopramide HCl 5 mg Q8HR IV 12/14/24 14:00 12/16/24 04:59 5 MG Valproate Sodium 500 mg/Sodium Chloride 105 ml @ 105 mls/hr BID IV 12/15/24 22:00 12/15/24 22:00 105 MLS/HR laboratory and microbiology Laboratory Tests 12/16/24 02:27 Test 12/16/24 02:27 Range/Units Serum Glucose 231 H 74-106 mg/dL Problem List/Assessment/Plan Problem List/Assessment/Plan 12/16/24 PATIENT MANIFESTING INCREASING OXYGEN DEMAND WITH PEEP OF 8 AND INCREASING Po2, HE NEEDS TO BE MAINTAINED WITH PEEP OF 5 AND o2 OF 35 IN ORDER TO BE ABLE TO PROCEED WITH TRACHEOSTOMY SAFELY, I HAVE CANCELLED TRACHEOSTOMY OPERATION FOR TODAY FOR THAT REASON. PLEASE NOTIFY ME WHEN PATIENT IS RELIABLY ON STATED YESICA T SETTINGS. Plan discussed with: Other Dietary Evaluation Review Comments: 1) Initiate thiamin, folic acid, and MVI supplementation d/t recent ETOH abuse 2) If patient remains NPO > 7 days, consider EN/TPN to meet at least 75% of estimated daily needs 3) If GI is preferred, initiate Glucerna 1.2 @ 60 mL/hr goal rate as tolerated. Flush with 150 mL Q6H. TF regimen will provide 1728 kcals, 86g Pro, and 1759 mL free H2O (including flushes) per 24 hrs. Goal rate will meet ~87% estimated daily energy needs and ~72% estimated daily protein needs 4) Advance to 60g CCHO cardiac diet when medically feasible, pending ST approval 5) Collect HbA1c 6) Refer to outpatient RD/[facility] for diabetes education 7) Follow-up with cardiology, pulmonology, and psychiatry 8) Follow-up with social human services assistants r/t ETOH abuse 9) Continue to monitor I&O, labs, and skin integrity Expected Outcomes/Goals: 1) patient to receive nutritional support within 7 days of NPO status 2) labs and GI symptoms to improve 3) diet to advance 4) follow-up in 2-3 days JOHN BUSTOS MD Dec 16, 2024 09:06
--- NOTE | 2024-12-16 10:56 | DVHPNRES ---
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 Per patient's roommate, he has not been using his medicine since 1 week, and had developed nausea, vomiting and diarrhea since 3 days, and since 1 day has been altered. Denies fever, loss of consciousness, or any trauma. 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 Lives with friend at home. At baseline mobile, but does not work, on disability Home medication: Quetiapine, sertraline, gabapentin, insulin NPH, levetiracetam, oxcarbazepine, and hydroxyzine, noncompliant with the medicine 12/16: Patient seen and evaluated in bedside today. Called friend and sister- see number on the chart but unable to reach. Surgery recommended PEEP around 5 and FiO2 around 35. As current FiO2 50 and PEEP 8. Postpone surgery for today. We will schedule when patient reliable on vent setting. Objective vital signs Vital Sign Date Time Temp Pulse Resp B/P (MAP) Pulse Ox O2 Delivery O2 Flow Rate FiO2 12/16/24 10:00 20 95 Mechanical Ventilator+ 50 50 12/16/24 09:40 71 101/49 (66) 12/16/24 06:00 98.8 209.8 Total Intake and Output 12/15/24 12/15/24 12/16/24 15:00 23:00 07:00 Intake Total 706.360 ml 1190.783 ml 1017.057 ml Output Total 450 ml 1650 ml Balance 706.360 ml 740.783 ml -632.943 ml medications Current Medications Medications Dose Ordered Sig/Misa Route Start Time Stop Time Status Last Admin Dose Admin Midazolam HCl 50 ml @ 1 mls/hr Q24H IV 12/01/24 12:45 12/16/24 07:38 15 MLS/HR Dextrose 50 ml UD PRN IV 12/01/24 13:30 Cancel Insulin Glargine 15 units DAILY SC 12/02/24 10:00 Cancel Dextrose 50 ml UD PRN IV 12/01/24 16:45 Cancel Acetaminophen 650 mg Q6HP PRN PO 12/01/24 16:45 12/15/24 23:25 650 MG Famotidine 20 mg DAILY IV 12/02/24 10:00 12/16/24 10:28 20 MG Ipratropium [place] 0.5 mg Q4HR NEB 12/01/24 18:00 12/16/24 09:40 0.5 MG Albuterol 2.5 mg Q4HPRN PRN NEB 12/01/24 18:00 12/16/24 09:40 2.5 MG Diagnostic Test (Pha) 1 strip Q6HR 12/02/24 18:00 12/16/24 04:59 1 STRIP Insulin Human Regular Q6HR SC 12/02/24 18:00 12/16/24 06:24 6 UNITS Dextrose 50 ml UD PRN IV 12/02/24 15:45 Lorazepam 1 mg Q5MINP PRN IV 12/03/24 01:45 12/03/24 03:43 1 MG Enteral Nutritional Formula 1,000 ml 40ML/HR GT 12/03/24 09:30 12/15/24 07:46 1,000 ML Levetiracetam 100 ml @ 400 mls/hr BID IV 12/03/24 10:00 UNV Thiamine HCl 100 mg DAILY IV 12/05/24 10:00 12/16/24 10:29 100 MG Enoxaparin Sodium 40 mg DAILY SC 12/05/24 10:00 12/16/24 10:36 40 MG Norepinephrine Bitartrate 250 ml @ 3.75 mls/hr Q24H IV 12/04/24 19:15 12/11/24 05:45 3.75 MLS/HR Lactulose 30 ml Q6HR GT 12/05/24 08:45 12/14/24 23:14 30 ML Carbamazepine 400 mg BID GT 12/05/24 22:00 12/16/24 10:00 400 MG Sodium Chloride 10 ml QSHIFT@10,22 IV 12/07/24 22:00 12/16/24 10:36 10 ML Multi-Ingredient Ointment 1 applic DAILY TOP 12/09/24 10:00 12/15/24 09:30 1 APPLIC Fentanyl Citrate 250 ml @ 2.5 mls/hr Q24H IV 12/10/24 23:30 12/16/24 04:23 35 MLS/HR Linezolid 300 ml @ 150 mls/hr Q12H IV 12/11/24 17:00 12/16/24 04:25 150 MLS/HR Meropenem 50 ml @ 17 mls/hr Q8HR IV 12/11/24 22:00 12/16/24 04:59 17 MLS/HR Propofol 100 ml @ 2.559 mls/ hr Q24H IV 12/11/24 19:00 12/16/24 07:39 25.59 MLS/HR Levetiracetam 750 mg BID PO 12/14/24 10:00 12/16/24 10:35 750 MG Metoclopramide HCl 5 mg Q8HR IV 12/14/24 14:00 12/16/24 04:59 5 MG Valproate Sodium 500 mg/Sodium Chloride 105 ml @ 105 mls/hr BID IV 12/15/24 22:00 12/15/24 22:00 105 MLS/HR Examination General: RASS -5, afebrile, mucosae are moist Cardiovascular: Normal S1 and S2. No murmurs, gallops or rubs Respiratory: Left-sided mild crackles GI: Soft, nontender, no organomegaly, normal bowel sounds : Orellana catheter n place, clear yellow urine in collection bag MSK/skin: Mobilization of limbs cannot be evaluated. Skin is dry and warm. IV accesses: A small 2 x 2 cm scab noticed at the heel of left foot. Neurological: Orientation cannot be assessed. No apparent motor no sensitive deficits. Pupils are isocoric and reactive laboratory and microbiology Laboratory Tests 12/16/24 02:27 Test 12/16/24 02:27 Range/Units Serum Glucose 231 H 74-106 mg/dL Microbiology Date/Time Source Procedure Growth Status 12/12/24 08:39 Blood Blood Culture - Preliminary NO GROWTH AFTER 72 HOURS OF INCUBATION. Resulted 12/11/24 14:40 Trachea Gram Stain - Final Resulted 12/11/24 14:40 Trachea Respiratory Culture - Preliminary Resulted 12/02/24 14:31 Urine - Orellana [place] Urine Culture - Final Complete 12/01/24 00:00 Sputum Endotracheal Wash Gram Stain - Final Complete 12/01/24 00:00 Respiratory Culture - Final Klebsiella pneumoniae Complete Problem List/Assessment/Plan Problem List/Assessment/Plan laboratory and microbiology Laboratory Tests 12/15/24 03:07 Test 12/15/24 03:07 Range/Units Serum Glucose 210 H 74-106 mg/dL Microbiology Date/Time Source Procedure Growth Status 12/12/24 08:39 Blood Blood Culture - Preliminary NO GROWTH AFTER 72 HOURS OF INCUBATION. Resulted 12/11/24 14:40 Trachea Gram Stain - Final Resulted 12/11/24 14:40 Trachea Respiratory Culture - Preliminary Resulted 12/02/24 14:31 Urine - Orellana [place] Urine Culture - Final Complete 12/01/24 00:00 Sputum Endotracheal Wash Gram Stain - Final Complete 12/01/24 00:00 Respiratory Culture - Final Klebsiella pneumoniae Complete Labs and/or images reviewed: Image(s) reviewed by me Problem List/Assessment/Plan Problem List/Assessment/Plan This is a 44-year-old male with past medical history of CVA, subdural hematoma, (status post DATA SECURITY COORDINATOR shunt), depression, diabetes type 1, and bipolar disorder brought to the hospital due to nausea, vomiting, diarrhea and altered mental status. Had admitted with primary diagnosis of DKA/HHS. And had admitted and intubated on 12/01. NEURO: Acute metabolic encephalopathy, likely due to DKA/HHS/sepsis History of intracerebral hemorrhage, status post DATA SECURITY COORDINATOR shunt Possible alcohol withdrawal History of epilepsy Bipolar disorder/depression * Head CT scan 12/01, no new intracranial abnormalities * RASS score -4 * Discontinue quetiapine and gabapentin * Continue home meds: Keppra, oxygen carbamazepine, valproic acid * Plan: Versed, fentanyl , propofol, Precedex CARDIOVASCULAR: Sinus tachycardia RESPIRATORY: Acute hypoxic respiratory failure, likely due to pneumonia Pneumonia, due to Klebsiella pneumoniae Aspiration pneumonia * Chest x-ray shows bilateral haziness, with prominent bronchovascular marking * MV setting: VC mode, TV 400, RR 20, FiO2 50%, peep 8 * Plan: Mechanical ventilation, breathing treatment and IV antibiotic. * Surgery recommended PEEP around 5 and FiO2 around 35. As current FiO2 50 and PEEP 8. Postpone surgery for today. We will schedule when patient reliable on vent setting. GENITOURINARY/FLUID: REYNALDO, likely VMN, resolved * Plan: NS with dextrose 10% at 75 mL/hour GASTROINTESTINAL/NUTRITION: Alcohol use disorder Possible alcohol withdrawal Possible refeeding syndrome Constipation * On 12/12, patient had blackish oral drainage, and stomach had high volume of residual, NG discontinued, and placed Dobbhoff tube * Plan: Thiamine, and folic acid and feeding through Dobbhoff tube INFECTIOUS DISEASE: Sepsis, likely due to pneumonia Pneumonia, due to Klebsiella pneumoniae Aspiration pneumonia Dental infection * Sputum culture 12/01, Klebsiella pneumoniae * Blood and urine culture 12/01, Shows no growth * Discontinued Rocephin (12/01-12/06), azithromycin (12/01-12/06) and clindamycin (12/04-12/06) * Discontinue vancomycin (12/06 given up to 12/11), and cefepime (12/07 given up to 12/11) * Plan: Meropenem (12/11), linezolid (12/11) HEMATOLOGY: Mild anemia, normocytic normochromic ENDOCRINE: Diabetes type 1 DKA/HHS * Plan: ISS, sodium phosphate METABOLIC: Hypokalemia Hyponatremia Hypomagnesemia Hypophosphatemia Hyperphosphatemia MSK/SKIN: Skin scab, on the heel of left leg New skin eruptions (xerosis/seborrheic dermatitis, possibly due to ICU related skin dryness), possible drug eruption or infection related * New erythematous/scaly rashes noted on checks, face and neck, no parts of body and mucosal involvement, patient is sedated and can not report any symptoms * Plan: Eucerin cream, monitoring eosinophils DIET: Tube feeding DVT prophylax: Lovenox GI prophylaxis: Protonix Bowel regimen: Lactulose LINES/DEVICES ETT: Intubated on 12/01 IV access: PICC line placed on 11/07 Drips: Fentanyl, Versed and propofol Orellana catheter: Placed on 12/01. Disposition: Continue ICU status Family: Patients friends (Durga and Tristen) and sister unable to reach after repeated attempts over the phone. Critical care time: Spent > 87 min, spent in direct critical care, including evaluation, management, review of labs/imaging, and multidisciplinary/family discussions, (excluding any procedures). Case discussed with Dr. Porter. Plan discussed with: Other (Nurse.) Dietary Evaluation Review Comments: 1) Initiate thiamin, folic acid, and MVI supplementation d/t recent ETOH abuse 2) If patient remains NPO > 7 days, consider EN/TPN to meet at least 75% of estimated daily needs 3) If GI is preferred, initiate Glucerna 1.2 @ 60 mL/hr goal rate as tolerated. Flush with 150 mL Q6H. TF regimen will provide 1728 kcals, 86g Pro, and 1759 mL free H2O (including flushes) per 24 hrs. Goal rate will meet ~87% estimated daily energy needs and ~72% estimated daily protein needs 4) Advance to 60g CCHO cardiac diet when medically feasible, pending ST approval 5) Collect HbA1c 6) Refer to outpatient RD/[facility] for diabetes education 7) Follow-up with cardiology, pulmonology, and psychiatry 8) Follow-up with social service coordinator r/t ETOH abuse 9) Continue to monitor I&O, labs, and skin integrity Expected Outcomes/Goals: 1) patient to receive nutritional support within 7 days of NPO status 2) labs and GI symptoms to improve 3) diet to advance 4) follow-up in 2-3 days Date of Service: Dec 16, 2024 Billing Provider: BRANNON CARR MD Common Visit Codes: NOT BILLABLE SANDY ENCINAS RESIDENT Dec 16, 2024 10:56 BRANNON CARR MD Jan 01, 2025 15:45
[2024-12-16] MEDS: FUROSEMIDE 40 MG/4 ML VIAL IV ONE (18:11)
[2024-12-17] VITALS (106 sets, daily range): BP systolic 84–224; BP diastolic 42–198; PULSE 71–121; RESP 13–27; TEMP 96.3–100.8; O2SAT 89–99
[2024-12-17 03:55] LABS: Hematocrit 31.0 % (41.0-53.0)
[2024-12-17 03:59] LABS: Hemoglobin 10.8 g/dL (13.5-17.5); Mean Corpuscular Hemoglobin 30.3 pg (28.0-32.0); Mean Corpuscular Volume 86.6 fL (80.0-100.0)
[2024-12-17 04:05] LABS: Sodium 142 mmol/L (136-145)
[2024-12-17 04:06] LABS: Anion Gap 10 (5-15); Calcium 9.1 mg/dL (8.7-10.4)
[2024-12-17 05:06] LABS: Carbon Dioxide 35 mmol/L (20-31); Chloride 97 mmol/L (98-107); Glucose 222 mg/dL (74-106); Potassium 3.5 mmol/L (3.5-5.1)
[2024-12-17 05:07] LABS: BUN/Creatinine Ratio 8.8 (10.0-20.0); Blood Urea Nitrogen < 5 mg/dL (9-23)
--- NOTE | 2024-12-17 05:46 | DVH ---
EXAM: XY CHEST PORTABLE HISTORY: Position of ET tube COMPARISON: XY CHEST XRAY 1 VIEW on DOS: 12/16/24, XY CHEST XRAY 1 VIEW on DOS: 12/15/24, XY CHEST XR AY 1 VIEW on DOS: 12/14/24, XY CHEST XRAY 1 VIEW on DOS: 12/13/24, XY CHEST XRAY 1 VIEW on DOS: 12/12/24 TECHNIQUE: Portable AP view of the chest was performed. FINDINGS: Endotracheal tube is re-identified with its tip 6 cm above the laci. OG tube, feeding tube, and rig ht upper extremity PICC line are re-identified. There are bilateral airspace opacities, left-greater- than-right, stable. There are likely small pleural effusions. No pneumothorax. The heart is borderli ne enlarged. IMPRESSION: 1. Mechanical ventilation with tubes and lines as above. 2. Stable bilateral airspace opacities, [id number], and probable small bilateral pleural effusions.
[2024-12-17 05:55] LABS: Anisocytosis Slight; Total Cells Counted 100.0 (100)
[2024-12-17] MEDS: LIDOCAINE W/ EPINEPHRINE 1% 20ML VIAL ONE (07:00)
[2024-12-17] MEDS: BUPIVACAINE 0.25% INJ 50ML VIAL ONE (07:00)
[2024-12-17 07:51] LABS: Base Excess 10.4 mmol/L (-2.0-3.0)
[2024-12-17] MEDS: FUROSEMIDE 40 MG/4 ML VIAL IV SCH (10:14)
[2024-12-17] MEDS ORDERED: BACTRIM 5MG/KG Q8HR PER RX 0 ML IV SCH (11:30)
--- NOTE | 2024-12-17 11:34 | DVHPNRES ---
Progress Note Date Seen: Dec 17, 2024 Resident Creating Document: SEAN DE LOS SANTOS RESDIENT Medical Necessity Reason Pt with a Central, PICC or Fol: Yes The following are medically ne: Central Line, Orellana Catheter Subjective Review of Systems This is a 44-year-old male with past medical history of asthma, CVA, intracerebral hemorrhage, subdural hematoma, (status post [employer] BI DEVELOPER shunt, 10 years back), depression, diabetes type 1, hypertension, seizure, bipolar disorder brought to the hospital due to altered mental status. Per patient's roommate, he has not been using his medicine since 1 week, and had developed nausea, vomiting and diarrhea since 3 days, and since 1 day has been altered. Denies fever, loss of consciousness, or any trauma. PMHx: asthma, CVA, intracerebral hemorrhage, subdural hematoma, (status post [employer] BI DEVELOPER shunt, 10 years back), depression, diabetes type 1, hypertension, seizure, bipolar disorder PSHx: SAS BI DEVELOPER shunt (10 years back), had removed molar to 3 weeks back, had tracheostomy in 2019 (due to intracerebral hemorrhage) Social history: Smokes marijuana and drink heavy alcohol. Lives with friend at home. At baseline mobile, but does not work, on disability Home medication: Quetiapine, sertraline, gabapentin, insulin NPH, levetiracetam, oxcarbazepine, and hydroxyzine, noncompliant with the medicine Patient seen and evaluated in bedside today. Surgery recommended PEEP around 5 and FiO2 around 35. As current FiO2 50 and PEEP 8. Postpone surgery for today. We will schedule when patient reliable on vent setting. Objective vital signs Vital Sign Date Time Temp Pulse Resp B/P (MAP) Pulse Ox O2 Delivery O2 Flow Rate FiO2 12/17/24 10:14 101/55 12/17/24 10:04 84 20 96 50 12/17/24 08:00 Mechanical Ventilator+ 12/17/24 07:05 100.8 Total Intake and Output 12/16/24 12/16/24 12/17/24 15:00 23:00 07:00 Intake Total 693.224 ml 1191.222 ml 1167.520 ml Output Total 2700 ml 4000 ml Balance 693.224 ml -1508.778 ml -2832.480 ml medications Current Medications Medications Dose Ordered Sig/Misa Route Start Time Stop Time Status Last Admin Dose Admin Midazolam HCl 50 ml @ 1 mls/hr Q24H IV 12/01/24 12:45 12/17/24 08:20 15 MLS/HR Dextrose 50 ml UD PRN IV 12/01/24 13:30 Cancel Insulin Glargine 15 units DAILY SC 12/02/24 10:00 Cancel Dextrose 50 ml UD PRN IV 12/01/24 16:45 Cancel Acetaminophen 650 mg Q6HP PRN PO 12/01/24 16:45 12/17/24 06:05 650 MG Famotidine 20 mg DAILY IV 12/02/24 10:00 12/17/24 10:14 20 MG Ipratropium [place] 0.5 mg Q4HR NEB 12/01/24 18:00 12/17/24 10:03 0.5 MG Albuterol 2.5 mg Q4HPRN PRN NEB 12/01/24 18:00 12/17/24 02:05 2.5 MG Diagnostic Test (Pha) 1 strip Q6HR 12/02/24 18:00 12/17/24 05:14 1 STRIP Insulin Human Regular Q6HR SC 12/02/24 18:00 12/17/24 05:47 6 UNITS Dextrose 50 ml UD PRN IV 12/02/24 15:45 Lorazepam 1 mg Q5MINP PRN IV 12/03/24 01:45 12/03/24 03:43 1 MG Enteral Nutritional Formula 1,000 ml 40ML/HR GT 12/03/24 09:30 12/15/24 07:46 1,000 ML Levetiracetam 100 ml @ 400 mls/hr BID IV 12/03/24 10:00 UNV Thiamine HCl 100 mg DAILY IV 12/05/24 10:00 12/17/24 10:15 100 MG Norepinephrine Bitartrate 250 ml @ 3.75 mls/hr Q24H IV 12/04/24 19:15 12/11/24 05:45 3.75 MLS/HR Lactulose 30 ml Q6HR GT 12/05/24 08:45 12/17/24 05:13 30 ML Carbamazepine 400 mg BID GT 12/05/24 22:00 12/17/24 10:35 400 MG Sodium Chloride 10 ml QSHIFT@10,22 IV 12/07/24 22:00 12/17/24 10:14 10 ML Multi-Ingredient Ointment 1 applic DAILY TOP 12/09/24 10:00 12/17/24 10:37 1 APPLIC Fentanyl Citrate 250 ml @ 2.5 mls/hr Q24H IV 12/10/24 23:30 12/17/24 08:21 35 MLS/HR Linezolid 300 ml @ 150 mls/hr Q12H IV 12/11/24 17:00 12/17/24 05:13 150 MLS/HR Meropenem 50 ml @ 17 mls/hr Q8HR IV 12/11/24 22:00 12/17/24 05:13 17 MLS/HR Propofol 100 ml @ 2.559 mls/ hr Q24H IV 12/11/24 19:00 12/17/24 10:12 25.59 MLS/HR Levetiracetam 750 mg BID PO 12/14/24 10:00 12/17/24 10:36 750 MG Metoclopramide HCl 5 mg Q8HR IV 12/14/24 14:00 12/17/24 05:14 5 MG Valproate Sodium 500 mg/Sodium Chloride 105 ml @ 105 mls/hr BID IV 12/15/24 22:00 12/17/24 10:49 105 MLS/HR Furosemide 40 mg DAILY IV 12/17/24 10:00 12/17/24 10:14 40 MG Examination General: RASS -5, afebrile, mucosae are moist Cardiovascular: Normal S1 and S2. No murmurs, gallops or rubs Respiratory: Left-sided mild crackles GI: Soft, nontender, no organomegaly, normal bowel sounds : Orellana catheter n place, clear yellow urine in collection bag MSK/skin: Mobilization of limbs cannot be evaluated. Skin is dry and warm. IV accesses: A small 2 x 2 cm scab noticed at the heel of left foot. Neurological: Orientation cannot be assessed. No apparent motor no sensitive deficits. Pupils are isocoric and reactive laboratory and microbiology Laboratory Tests 12/17/24 03:30 Test 12/17/24 03:30 Range/Units Serum Glucose 222 H 74-106 mg/dL Microbiology Date/Time Source Procedure Growth Status 12/12/24 08:39 Blood Blood Culture - Final NO GROWTH AFTER 5 DAYS OF INCUBATION. Complete 12/11/24 14:40 Trachea Gram Stain - Final Complete 12/11/24 14:40 Respiratory Culture - Final Burkholderia cepacia Complete 12/02/24 14:31 Urine - Orellana Port Urine Culture - Final Complete 12/01/24 00:00 Sputum Endotracheal Wash Gram Stain - Final Complete 12/01/24 00:00 Respiratory Culture - Final Klebsiella pneumoniae Complete Labs and/or images reviewed: Labs reviewed by me, Image(s) reviewed by me Problem List/Assessment/Plan Problem List/Assessment/Plan This is a 44-year-old male with past medical history of CVA, subdural hematoma, (status post [employer] DEVELOPER shunt), depression, diabetes type 1, and bipolar disorder brought to the hospital due to nausea, vomiting, diarrhea and altered mental status. Had admitted with primary diagnosis of DKA/HHS. And had admitted and intubated on 12/01. NEURO: Acute metabolic encephalopathy, likely due to DKA/HHS/sepsis History of intracerebral hemorrhage, status post [employer] BI DEVELOPER shunt Possible alcohol withdrawal History of epilepsy Bipolar disorder/depression * Head CT scan 12/01, no new intracranial abnormalities * RASS score -4 * Discontinue quetiapine and gabapentin * Continue home meds: Keppra, oxygen carbamazepine, valproic acid * Plan: Versed, fentanyl , propofol, Precedex CARDIOVASCULAR: Sinus tachycardia RESPIRATORY: Acute hypoxic respiratory failure, likely due to pneumonia Pneumonia, due to Klebsiella pneumoniae Aspiration pneumonia * Chest x-ray shows bilateral haziness, with prominent bronchovascular marking * MV setting: VC mode, TV 400, RR 20, FiO2 50%, peep 8 * Plan: Mechanical ventilation, breathing treatment and IV antibiotic. * Surgery recommended PEEP around 5 and FiO2 around 35. As current FiO2 50 and PEEP 8. Postpone surgery for today. We will schedule when patient reliable on vent setting. 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 * Blood and urine culture 12/01, Shows no growth * Discontinued Rocephin (12/01-12/06), azithromycin (12/01-12/06) and clindamycin (12/04-12/06) * Discontinue vancomycin (12/06 given up to 12/11), and cefepime (12/07 given up to 12/11) * Discontinue linezolid (12/11 given until 12/17) * Plan: Continue Meropenem (12/11) and Bactrim (12/17) HEMATOLOGY: Mild anemia, normocytic normochromic ENDOCRINE: Diabetes type 1 DKA/HHS * Plan: ISS METABOLIC: Hypokalemia Hyponatremia Hypomagnesemia Hypophosphatemia Hyperphosphatemia MSK/SKIN: Skin scab, on the heel of left leg New skin eruptions (xerosis/seborrheic dermatitis, possibly due to ICU related skin dryness), possible drug eruption or infection related * New erythematous/scaly rashes noted on checks, face and neck, no parts of body and mucosal involvement, patient is sedated and can not report any symptoms * Plan: Eucerin cream, monitoring eosinophils DIET: Tube feeding DVT prophylax: Lovenox GI prophylaxis: Protonix Bowel regimen: Lactulose LINES/DEVICES ETT: Intubated on 12/01 IV access: PICC line placed on 11/07 Drips: Fentanyl, Versed and propofol Orellana catheter: Placed on 12/01. Disposition: Continue ICU status Family: Patients friends (Durga and Tristen) and sister unable to reach after repeated attempts over the phone. Critical care time: Spent > 87 min, spent in direct critical care, including evaluation, management, review of labs/imaging, and multidisciplinary/family discussions, (excluding any procedures). Case discussed with Dr. Porter. Plan discussed with: Other Dietary Evaluation Review Comments: 1) Initiate thiamin, folic acid, and MVI supplementation d/t recent ETOH abuse 2) If patient remains NPO > 7 days, consider EN/TPN to meet at least 75% of estimated daily needs 3) If GI is preferred, initiate Glucerna 1.2 @ 60 mL/hr goal rate as tolerated. Flush with 150 mL Q6H. TF regimen will provide 1728 kcals, 86g Pro, and 1759 mL free H2O (including flushes) per 24 hrs. Goal rate will meet ~87% estimated daily energy needs and ~72% estimated daily protein needs 4) Advance to 60g CCHO cardiac diet when medically feasible, pending ST approval 5) Collect HbA1c 6) Refer to outpatient RD/CDCES for diabetes education 7) Follow-up with cardiology, pulmonology, and psychiatry 8) Follow-up with older adult social work specialist r/t ETOH abuse 9) Continue to monitor I&O, labs, and skin integrity Expected Outcomes/Goals: 1) patient to receive nutritional support within 7 days of NPO status 2) labs and GI symptoms to improve 3) diet to advance 4) follow-up in 2-3 days SEAN DE LOS SANTOS Dec 17, 2024 11:34
[2024-12-17] MEDS: METOCLOPRAMIDE HCL 5MG/ml INJ 2ml VIAL IV SCH (16:45)
[2024-12-17] MEDS: SULFAMETH-TRIMETH 80/16MG-ML 30 ML in D5W 5% 500 ML IV SCH (17:29)
[2024-12-17] MEDS: levETIRAcetam 1000 mg/100ml 100 ML IV SCH (21:59)
[2024-12-18] VITALS (105 sets, daily range): BP systolic 85–157; BP diastolic 38–99; PULSE 77–130; RESP 12–44; TEMP 87.6–101.8; O2SAT 91–100
[2024-12-18] MEDS: SULFAMETH-TRIMETH 80/16MG-ML 30 ML in D5W 5% 500 ML IV SCH (01:52)
--- NOTE | 2024-12-18 04:22 | DVH ---
CHEST RADIOGRAPH Indication: Pneumonia. Technique: Single frontal view of the chest was obtained Comparison: XY CHEST PORTABLE on DOS: 12/17/24 FINDINGS: Lines and Tubes: The endotracheal tube terminates 4.3 cm above the laci. Right central venous cath eter terminates in the superior vena cava. The enteric tubes course below the left hemidiaphragm and the tips extend outside the field of view. Lungs: Bilateral airspace disease. Pleura: Small bilateral pleural effusions. No pneumothorax. Cardiomediastinal contours: Unremarkable Bones: No acute osseous abnormality. IMPRESSION: 1. Support tubes in appropriate position. 2. Bilateral airspace disease and small bilateral pleural effusions. No significant interval change.
[2024-12-18 04:29] LABS: Hemoglobin 10.0 g/dL (13.5-17.5)
[2024-12-18 04:33] LABS: Hematocrit 28.9 % (41.0-53.0); Mean Corpuscular Hemoglobin 30.1 pg (28.0-32.0); Mean Corpuscular Volume 87.2 fL (80.0-100.0)
[2024-12-18 05:05] LABS: Alanine Aminotransferase 11 U/L (7-40); Anion Gap 7 (5-15); BUN/Creatinine Ratio 7.8 (10.0-20.0); Sodium 141 mmol/L (136-145); Total Protein 6.1 g/dL (5.7-8.2)
[2024-12-18 05:14] LABS: Albumin 2.9 g/dL (3.2-4.8); Alkaline Phosphatase 199 U/L (46-116); Bilirubin, Total < 0.2 mg/dL (0.2-1.0); Blood Urea Nitrogen 5 mg/dL (9-23); Calcium 8.4 mg/dL (8.7-10.4); Carbon Dioxide 36 mmol/L (20-31); Chloride 98 mmol/L (98-107); Glucose 274 mg/dL (74-106); Potassium 3.1 mmol/L (3.5-5.1)
[2024-12-18 05:40] LABS: Base Excess 8.9 mmol/L (-2.0-3.0)
[2024-12-18 05:48] LABS: Total Cells Counted 100.0 (100)
[2024-12-18] MEDS: POTASSIUM CHL 20MEQ/100ML 100 ML IV SCH (10:00)
[2024-12-18 11:34] LABS: Base Excess 8.4 mmol/L (-2.0-3.0)
[2024-12-18 11:41] LABS: Base Excess 8.0 mmol/L (-2.0-3.0)
[2024-12-18] MEDS: MAGNESIUM SULFATE 1GM/100ML 200 ML IV ONE (12:11)
[2024-12-18] MEDS: MAGNESIUM SULFATE 1GM/100ML 100 ML IV SCH (12:27)
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
[2024-12-18] MEDS: BISACODYL 10 MG RECT SUPP PR ONE (18:00)
[2024-12-18] MEDS: PROPOFOL 100 ML IV SCH (20:45)
[2024-12-19] VITALS (112 sets, daily range): BP systolic 84–177; BP diastolic 47–111; PULSE 79–131; RESP 12–28; TEMP 96.8–101.5; O2SAT 89–99
[2024-12-19 03:39] LABS: Nucleated Red Blood Cells % 0.0 %
[2024-12-19 03:41] LABS: Hematocrit 27.9 % (41.0-53.0); Hemoglobin 9.6 g/dL (13.5-17.5); Mean Corpuscular Hemoglobin 30.2 pg (28.0-32.0); Mean Corpuscular Volume 88.2 fL (80.0-100.0)
[2024-12-19 03:54] LABS: Alanine Aminotransferase 14 U/L (7-40); Anion Gap 9 (5-15); Potassium 3.9 mmol/L (3.5-5.1); Sodium 140 mmol/L (136-145); Total Protein 6.2 g/dL (5.7-8.2)
[2024-12-19 04:05] LABS: Albumin 2.9 g/dL (3.2-4.8); Alkaline Phosphatase 206 U/L (46-116); BUN/Creatinine Ratio 6.3 (10.0-20.0); Blood Urea Nitrogen < 5 mg/dL (9-23); Calcium 8.5 mg/dL (8.7-10.4); Carbon Dioxide 33 mmol/L (20-31); Chloride 98 mmol/L (98-107); Glucose 308 mg/dL (74-106)
[2024-12-19 04:07] LABS: Bilirubin, Total < 0.2 mg/dL (0.2-1.0)
--- NOTE | 2024-12-19 04:50 | DVH ---
CHEST RADIOGRAPH Indication: Pneumonia. Technique: Single frontal view of the chest was obtained Comparison: XY CHEST XRAY 1 VIEW on DOS: 12/18/24 FINDINGS: Lines and Tubes: There is a right PICC with its tip terminating in the superior vena cava. The endotr acheal tube terminates 3.8 cm above the laci. The enteric tube courses below the left hemidiaphragm and the tip extends outside the field of view. Lungs: Bilateral airspace disease. Pleura: Small bilateral pleural effusions. No pneumothorax. Cardiomediastinal contours: Cardiomegaly. Bones: No acute osseous abnormality. IMPRESSION: 1. Support tubes in appropriate position. 2. Bilateral airspace disease. 3. Small bilateral pleural effusions.
[2024-12-19] MEDS: ACETAMINOPHEN 325 MG TAB PO ONE (05:27)
[2024-12-19] MEDS: KETOROLAC TROMETH 30 MG/ML 1ML VIAL IV ONE (05:27)
--- NOTE | 2024-12-19 07:20 | DVH ---
Date: 12/19/2024 06:08 AM Examination: XY KUB ABDOMEN SINGLE VIEW History: abdominal distention Comparison: XY KUB ABDOMEN SINGLE VIEW on DOS: 12/14/24, XY KUB ABDOMEN SINGLE VIEW on DOS: 12/13/24, X Y KUB ABDOMEN SINGLE VIEW on DOS: 12/12/24, CT ABD PELVIS WO/W on DOS: 06/29/24, CT CT AB PEL WO CON-NO ORAL OR IV on DOS: 12/31/22, XY CHEST XRAY 1 VIEW on DOS: 12/19/24 TECHNIQUE: Frontal views of the abdomen was obtained. FINDINGS: Possible [employer] shunt catheter is present. Large stool burden. The lung bases are unremarkable. No acute osseous abnormality identified. IMPRESSION: Large stool burden.
[2024-12-19 09:14] LABS: Base Excess 7.5 mmol/L (-2.0-3.0)
[2024-12-19] MEDS: PROPOFOL 100 ML IV ONE (09:34)
[2024-12-19] MEDS: THIAMINE HCL 100 MG TAB PO SCH (09:53)
[2024-12-19] MEDS ORDERED: FUROSEMIDE 20 MG/2 ML VIAL IV SCH (10:00)
[2024-12-19] MEDS: INSULIN LANTUS (GLARGINE) 1 /0.01ml (100units/ml) SC ONE (10:09)
[2024-12-19] MEDS: SODIUM CHLORIDE 0.9% 500 ML IV ONE (14:28)
--- NOTE | 2024-12-19 17:46 | DVHPNRES ---
Progress Note Date Seen: Dec 19, 2024 Resident Creating Document: SEAN DE LOS SANTOS RESDIENT Medical Necessity Reason Pt with a Central, PICC or Fol: Yes The following are medically ne: Central Line, Orellana Catheter Subjective Review of Systems This is a 44-year-old male with past medical history of asthma, CVA, intracerebral hemorrhage, subdural hematoma, (status post COUNTER WAITRESS/WAITER shunt, 10 years back), depression, diabetes type 1, hypertension, seizure, bipolar disorder brought to the hospital due to altered mental status. Per patient's roommate, he has not been using his medicine since 1 week, and had developed nausea, vomiting and diarrhea since 3 days, and since 1 day has been altered. Denies fever, loss of consciousness, or any trauma. PMHx: asthma, CVA, intracerebral hemorrhage, subdural hematoma, (status post COUNTER WAITRESS/WAITER shunt, 10 years back), depression, diabetes type 1, hypertension, seizure, bipolar disorder PSHx: COUNTER WAITRESS/WAITER shunt (10 years back), had removed molar to 3 weeks back, had tracheostomy in 2019 (due to intracerebral hemorrhage) Social history: Smokes marijuana and drink heavy alcohol. Lives with friend at home. At baseline mobile, but does not work, on disability Home medication: Quetiapine, sertraline, gabapentin, insulin NPH, levetiracetam, oxcarbazepine, and hydroxyzine, noncompliant with the medicine Patient seen and examined at bedside. Patient is sedated and on mechanical ventilation. Objective vital signs Vital Sign Date Time Temp Pulse Resp B/P (MAP) Pulse Ox O2 Delivery O2 Flow Rate FiO2 12/19/24 17:23 96/54 12/19/24 16:15 97.9 80 22 93 208.2 12/19/24 16:10 Mechanical Ventilator+ 45 45 Total Intake and Output 12/18/24 12/18/24 12/19/24 15:00 23:00 07:00 Intake Total 1665.523 ml 1199.834 ml 1432.878 ml Output Total 2700 ml 1900 ml Balance 1665.523 ml -1500.166 ml -467.122 ml medications Current Medications Medications Dose Ordered Sig/Misa Route Start Time Stop Time Status Last Admin Dose Admin Midazolam HCl 50 ml @ 1 mls/hr Q24H IV 12/01/24 12:45 12/19/24 15:25 15 MLS/HR Dextrose 50 ml UD PRN IV 12/01/24 13:30 Cancel Insulin Glargine 15 units DAILY SC 12/02/24 10:00 Cancel Dextrose 50 ml UD PRN IV 12/01/24 16:45 Cancel Acetaminophen 650 mg Q6HP PRN PO 12/01/24 16:45 12/18/24 07:01 650 MG Famotidine 20 mg DAILY IV 12/02/24 10:00 12/19/24 09:52 20 MG Ipratropium [place] 0.5 mg Q4HR NEB 12/01/24 18:00 12/19/24 14:04 0.5 MG Albuterol 2.5 mg Q4HPRN PRN NEB 12/01/24 18:00 12/19/24 02:02 2.5 MG Diagnostic Test (Pha) 1 strip Q6HR 12/02/24 18:00 12/19/24 17:31 1 STRIP Insulin Human Regular Q6HR SC 12/02/24 18:00 12/19/24 17:44 3 UNITS Dextrose 50 ml UD PRN IV 12/02/24 15:45 Lorazepam 1 mg Q5MINP PRN IV 12/03/24 01:45 12/03/24 03:43 1 MG Enteral Nutritional Formula 1,000 ml 40ML/HR GT 12/03/24 09:30 12/17/24 23:41 1,000 ML Levetiracetam 100 ml @ 400 mls/hr BID IV 12/03/24 10:00 UNV Norepinephrine Bitartrate 250 ml @ 3.75 mls/hr Q24H IV 12/04/24 19:15 12/19/24 09:44 3.75 MLS/HR Lactulose 30 ml Q6HR GT 12/05/24 08:45 12/19/24 12:22 30 ML Carbamazepine 400 mg BID GT 12/05/24 22:00 12/19/24 10:18 400 MG Sodium Chloride 10 ml QSHIFT@10,22 IV 12/07/24 22:00 12/19/24 12:17 10 ML Multi-Ingredient Ointment 1 applic DAILY TOP 12/09/24 10:00 12/18/24 10:20 1 APPLIC Fentanyl Citrate 250 ml @ 2.5 mls/hr Q24H IV 12/10/24 23:30 12/19/24 17:23 35 MLS/HR Valproate Sodium 500 mg/Sodium Chloride 105 ml @ 105 mls/hr BID IV 12/15/24 22:00 12/19/24 10:15 105 MLS/HR Trimethoprim/ Sulfamethoxazole 0 ml @ 0 mls/hr PER PHARMACY IV 12/17/24 11:30 Metoclopramide HCl 10 mg Q8HR IV 12/17/24 16:45 12/19/24 14:30 10 MG Levetiracetam 100 ml @ 400 mls/hr BID IV 12/17/24 22:00 12/19/24 09:44 400 MLS/HR Trimethoprim/ Sulfamethoxazole 30 ml/Dextrose 530 ml @ 343.351 mls/hr Q8H IV 12/18/24 01:30 12/19/24 17:31 343.351 MLS/HR Thiamine HCl 100 mg DAILY PO 12/19/24 10:00 12/19/24 09:53 100 MG Propofol 100 ml @ 2.685 mls/ hr Q24H IV 12/18/24 20:45 12/19/24 15:25 26.85 MLS/HR Insulin Glargine 15 units DAILY@1000 SC 12/20/24 10:00 Examination General: RASS -5, afebrile, mucosae are moist Cardiovascular: Normal S1 and S2. No murmurs, gallops or rubs Respiratory: Left-sided mild crackles GI: Soft, nontender, no organomegaly, normal bowel sounds : Orellana catheter n place, clear yellow urine in collection bag MSK/skin: Mobilization of limbs cannot be evaluated. Skin is dry and warm. IV accesses: A small 2 x 2 cm scab noticed at the heel of left foot. Neurological: Orientation cannot be assessed. No apparent motor no sensitive deficits. Pupils are isocoric and reactive laboratory and microbiology Laboratory Tests 12/19/24 02:53 Test 12/19/24 02:53 Range/Units Serum Glucose 308 H 74-106 mg/dL Microbiology Date/Time Source Procedure Growth Status 12/18/24 13:00 Thigh Right Gram Stain - Final Resulted 12/18/24 13:00 Thigh Right Wound Culture - Preliminary Resulted 12/12/24 08:39 Blood Blood Culture - Final NO GROWTH AFTER 5 DAYS OF INCUBATION. Complete 12/02/24 14:31 Urine - Orellana [place] Urine Culture - Final Complete 12/01/24 00:00 Sputum Endotracheal Wash Gram Stain - Final Complete 12/01/24 00:00 Respiratory Culture - Final Klebsiella pneumoniae Complete Labs and/or images reviewed: Labs reviewed by me, Image(s) reviewed by me Problem List/Assessment/Plan Problem List/Assessment/Plan This is a 44-year-old male with past medical history of CVA, subdural hematoma, (status post COUNTER WAITRESS/WAITER shunt), depression, diabetes type 1, and bipolar disorder brought to the hospital due to nausea, vomiting, diarrhea and altered mental status. Had admitted with primary diagnosis of DKA/HHS. And had admitted and intubated on 12/01. NEURO: Acute metabolic encephalopathy, likely due to DKA/HHS/sepsis History of intracerebral hemorrhage, status post COUNTER WAITRESS/WAITER shunt Possible alcohol withdrawal History of epilepsy Bipolar disorder/depression * Head CT scan 12/01, no new intracranial abnormalities * RASS score -4 * Discontinue quetiapine and gabapentin * Continue home meds: Keppra, oxygen carbamazepine, valproic acid * Plan: Versed, fentanyl , propofol, Precedex CARDIOVASCULAR: Sinus tachycardia RESPIRATORY: Acute hypoxic respiratory failure, likely due to pneumonia Pneumonia, due to Klebsiella pneumoniae Aspiration pneumonia * Chest x-ray shows bilateral haziness, with prominent bronchovascular marking * MV setting: VC mode, TV 400, RR 20, FiO2 50%, peep 8 * Plan: Mechanical ventilation, breathing treatment and IV antibiotic. * Surgery recommended PEEP around 5 and FiO2 around 35. As current FiO2 50 and PEEP 8. Postpone surgery for today. We will schedule when patient reliable on vent setting. 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 * Blood and urine culture 12/01, Shows no growth * Discontinued Rocephin (12/01-12/06), azithromycin (12/01-12/06) and clindamycin (12/04-12/06) * Discontinue vancomycin (12/06 given up to 12/11), and cefepime (12/07 given up to 12/11) * Discontinue linezolid (12/11 given until 12/17), Meropenem (12/11 given up to 12/18) * Plan: Continue Bactrim (12/17) HEMATOLOGY: Mild anemia, normocytic normochromic ENDOCRINE: Diabetes type 1 DKA/HHS * Plan: ISS METABOLIC: Hypokalemia Hyponatremia Hypomagnesemia Hypophosphatemia Hyperphosphatemia MSK/SKIN: Skin scab, on the heel of left leg New skin eruptions (xerosis/seborrheic dermatitis, possibly due to ICU related skin dryness), possible drug eruption or infection related * New erythematous/scaly rashes noted on checks, face and neck, no parts of body and mucosal involvement, patient is sedated and can not report any symptoms * Plan: Eucerin cream, monitoring eosinophils DIET: Tube feeding, Glucerna DVT prophylax: Lovenox GI prophylaxis: Protonix Bowel regimen: Lactulose LINES/DEVICES ETT: Intubated on 12/01 IV access: PICC line placed on 11/07 Drips: Fentanyl, Versed and propofol Orellana catheter: Placed on 12/01. Disposition: Continue ICU status Family: Patients friends (Durga and Tristen) and sister unable to reach after repeated attempts over the phone. Critical care time: Spent > 82 min, spent in direct critical care, including evaluation, management, review of labs/imaging, and multidisciplinary/family discussions, (excluding any procedures). Case discussed with Dr. Valentino. Plan discussed with: Other (RN) My Orders My Orders Orders - SEAN DE LOS SANTOS RESYOHAN Procedure Category Date Status Time Discontinue Ng ORDERS 12/18/24 Transmitted 18:00 Propofol (Diprivan) PHA 12/18/24 In Process 20:45 Insulin Lantus PHA 12/20/24 In Process (Glargine) (Lantus) 10:00 Urine Bacterial ALIA 12/19/24 Logged Culture 17:03 Dietary Evaluation Review Comments: 1) Initiate thiamin, folic acid, and MVI supplementation d/t recent ETOH abuse 2) If patient remains NPO > 7 days, consider EN/TPN to meet at least 75% of estimated daily needs 3) If GI is preferred, initiate Glucerna 1.2 @ 60 mL/hr goal rate as tolerated. Flush with 150 mL Q6H. TF regimen will provide 1728 kcals, 86g Pro, and 1759 mL free H2O (including flushes) per 24 hrs. Goal rate will meet ~87% estimated daily energy needs and ~72% estimated daily protein needs 4) Advance to 60g CCHO cardiac diet when medically feasible, pending ST approval 5) Collect HbA1c 6) Refer to outpatient RD/[facility] for diabetes education 7) Follow-up with cardiology, pulmonology, and psychiatry 8) Follow-up with licensed master social worker r/t ETOH abuse 9) Continue to monitor I&O, labs, and skin integrity Expected Outcomes/Goals: 1) patient to receive nutritional support within 7 days of NPO status 2) labs and GI symptoms to improve 3) diet to advance 4) follow-up in 2-3 days Date of Service: Dec 19, 2024 Billing Provider: APRIL VALENTINO MD Common Visit Codes: [id number] CARE 30-74 MIN, [id number] CARE-EACH +30MIN SEAN DE LOS SANTOS Dec 19, 2024 17:46 APRIL VALENTINO MD Dec 20, 2024 13:16
[2024-12-20] VITALS (107 sets, daily range): BP systolic 83–194; BP diastolic 43–109; PULSE 80–139; RESP 14–41; TEMP 97–100; O2SAT 89–99
[2024-12-20 03:53] LABS: Mean Corpuscular Volume 88.1 fL (80.0-100.0)
[2024-12-20 03:57] LABS: Hematocrit 27.6 % (41.0-53.0); Hemoglobin 9.1 g/dL (13.5-17.5); Mean Corpuscular Hemoglobin 28.9 pg (28.0-32.0); Nucleated Red Blood Cells % 0.0 %
[2024-12-20 04:04] LABS: Alanine Aminotransferase 25 U/L (7-40); Anion Gap 8 (5-15); BUN/Creatinine Ratio 7.6 (10.0-20.0); Calcium 8.8 mg/dL (8.7-10.4); Carbon Dioxide 31 mmol/L (20-31); Chloride 102 mmol/L (98-107); Potassium 3.6 mmol/L (3.5-5.1); Sodium 141 mmol/L (136-145); Total Protein 6.2 g/dL (5.7-8.2)
[2024-12-20 04:05] LABS: Albumin 2.9 g/dL (3.2-4.8); Alkaline Phosphatase 221 U/L (46-116); Bilirubin, Total < 0.2 mg/dL (0.2-1.0); Blood Urea Nitrogen 6 mg/dL (9-23); Glucose 195 mg/dL (74-106)
--- NOTE | 2024-12-20 05:25 | DVH ---
CHEST RADIOGRAPH Indication: Pneumonia Technique: Single frontal view of the chest was obtained COMPARISON: XY CHEST XRAY 1 VIEW on DOS: 12/19/24, XY CHEST XRAY 1 VIEW on DOS: 12/18/24, XY CHEST PO RTABLE on DOS: 12/17/24, XY CHEST XRAY 1 VIEW on DOS: 12/16/24, XY CHEST XRAY 1 VIEW on DOS: 12/15/24 FINDINGS: Lines and Tubes: Endotracheal tube, enteric catheter and right central venous catheter in satisfactor y position. Lungs: Increased pulmonary edema. Pleura: No effusion. No pneumothorax. Cardiomediastinal contours: Unremarkable. Bones: Unremarkable. IMPRESSION: Increased pulmonary edema. Lines and tubes in satisfactory position.
[2024-12-20] MEDS: fentaNYL Drip 2500mCg/250mlNS 250 ML IV SCH (06:31)
[2024-12-20 07:13] LABS: Base Excess 4.0 mmol/L (-2.0-3.0)
[2024-12-20] MEDS: INSULIN LANTUS (GLARGINE) 1 /0.01ml (100units/ml) SC SCH (09:08)
[2024-12-20] MEDS: MIDAZOLAM HCL 2MG/2ML 2ml VIAL (1mg/ml) IV ONE (09:45)
[2024-12-20 10:09] LABS: Hepatitis B Surface Antigen Negative (Negative)
[2024-12-20] MEDS: KETAMINE 50mg/ML 10ml Vial (500mg/10ml) IV ONE (10:41)
[2024-12-20] MEDS: FUROSEMIDE 40 MG/4 ML VIAL IV ONE (11:58)
--- NOTE | 2024-12-20 12:12 | DVH ---
CHEST RADIOGRAPH Indication: Aspiration [place] Technique: Single frontal view of the chest was obtained Comparison: XY CHEST XRAY 1 VIEW on DOS: 12/20/24, XY CHEST XRAY 1 VIEW on DOS: 12/19/24, XY CHEST XR AY 1 VIEW on DOS: 12/18/24, XY CHEST PORTABLE on DOS: 12/17/24, XY CHEST XRAY 1 VIEW on DOS: 12/16/24 FINDINGS: Lines and Tubes: Endotracheal tube, and trade tube, and right IJ central line remain in satisfactoril y position. There is a new right-sided PICC line with tip near cavo atriel junction. Lungs: Significant decreased bilateral interstitial and confluent alveolar opacities with remainin g multifocal patchy opacities in mid / lower lung welsh. Cardiomediastinal silhouette is magnified . Minimal bilateral effusions. There is no pneumothorax. IMPRESSION: 1. Significantly improved bilateral diffuse infiltrates / edema with remaining multifocal patchy opac ities in the mid / lower lung welsh. 2. Tubes and lines as above.
[2024-12-20] MEDS: KETAMINE 50mg/ML 10ml Vial 500 MG in SODIUM CHL 0.9% 490 ML IV SCH (12:50)
--- NOTE | 2024-12-20 16:02 | DVHPNRES ---
Progress Note Date Seen: Dec 20, 2024 Resident Creating Document: SEAN DE LOS SANTOS RESDIENT Medical Necessity Reason Pt with a Central, PICC or Fol: Yes The following are medically ne: Central Line, Orellana Catheter Subjective Review of Systems This is a 44-year-old male with past medical history of asthma, CVA, intracerebral hemorrhage, subdural hematoma, (status post EYE PHYSICIAN shunt, 10 years back), depression, diabetes type 1, hypertension, seizure, bipolar disorder brought to the hospital due to altered mental status. Per patient's roommate, he has not been using his medicine since 1 week, and had developed nausea, vomiting and diarrhea since 3 days, and since 1 day has been altered. Denies fever, loss of consciousness, or any trauma. PMHx: asthma, CVA, intracerebral hemorrhage, subdural hematoma, (status post EYE PHYSICIAN shunt, 10 years back), depression, diabetes type 1, hypertension, seizure, bipolar disorder PSHx: EYE PHYSICIAN shunt (10 years back), had removed molar to 3 weeks back, had tracheostomy in 2019 (due to intracerebral hemorrhage) Social history: Smokes marijuana and drink heavy alcohol. Lives with friend at home. At baseline mobile, but does not work, on disability Home medication: Quetiapine, sertraline, gabapentin, insulin NPH, levetiracetam, oxcarbazepine, and hydroxyzine, noncompliant with the medicine Patient seen and examined at bedside. Patient is sedated and on mechanical ventilation. Objective vital signs Vital Sign Date Time Temp Pulse Resp B/P (MAP) Pulse Ox O2 Delivery O2 Flow Rate FiO2 12/20/24 15:30 122 19 84/49 (61) 93 12/20/24 14:06 90 12/20/24 14:00 Mechanical Ventilator+ 12/20/24 12:00 98.1 98.1 Total Intake and Output 12/19/24 12/19/24 12/20/24 15:00 23:00 07:00 Intake Total 1316.304 ml 1919.904 ml 1055.291 ml Output Total 350 ml 1800 ml Balance 1316.304 ml 1569.904 ml -744.709 ml medications Current Medications Medications Dose Ordered Sig/Misa Route Start Time Stop Time Status Last Admin Dose Admin Midazolam HCl 50 ml @ 1 mls/hr Q24H IV 12/01/24 12:45 12/20/24 13:12 15 MLS/HR Dextrose 50 ml UD PRN IV 12/01/24 13:30 Cancel Insulin Glargine 15 units DAILY SC 12/02/24 10:00 Cancel Dextrose 50 ml UD PRN IV 12/01/24 16:45 Cancel Acetaminophen 650 mg Q6HP PRN PO 12/01/24 16:45 12/18/24 07:01 650 MG Famotidine 20 mg DAILY IV 12/02/24 10:00 12/20/24 09:04 20 MG Ipratropium [place] 0.5 mg Q4HR NEB 12/01/24 18:00 12/20/24 14:06 0.5 MG Albuterol 2.5 mg Q4HPRN PRN NEB 12/01/24 18:00 12/20/24 14:06 2.5 MG Diagnostic Test (Pha) 1 strip Q6HR 12/02/24 18:00 12/20/24 12:02 1 STRIP Insulin Human Regular Q6HR SC 12/02/24 18:00 12/20/24 12:09 3 UNITS Dextrose 50 ml UD PRN IV 12/02/24 15:45 Lorazepam 1 mg Q5MINP PRN IV 12/03/24 01:45 12/03/24 03:43 1 MG Enteral Nutritional Formula 1,000 ml 40ML/HR GT 12/03/24 09:30 12/17/24 23:41 1,000 ML Levetiracetam 100 ml @ 400 mls/hr BID IV 12/03/24 10:00 UNV Norepinephrine Bitartrate 250 ml @ 3.75 mls/hr Q24H IV 12/04/24 19:15 12/20/24 06:23 3.75 MLS/HR Lactulose 30 ml Q6HR GT 12/05/24 08:45 12/19/24 12:22 30 ML Carbamazepine 400 mg BID GT 12/05/24 22:00 12/20/24 09:10 400 MG Sodium Chloride 10 ml QSHIFT@10,22 IV 12/07/24 22:00 12/20/24 09:08 10 ML Multi-Ingredient Ointment 1 applic DAILY TOP 12/09/24 10:00 12/20/24 12:10 1 APPLIC Valproate Sodium 500 mg/Sodium Chloride 105 ml @ 105 mls/hr BID IV 12/15/24 22:00 12/20/24 08:26 105 MLS/HR Trimethoprim/ Sulfamethoxazole 0 ml @ 0 mls/hr PER PHARMACY IV 12/17/24 11:30 Metoclopramide HCl 10 mg Q8HR IV 12/17/24 16:45 12/20/24 05:22 10 MG Levetiracetam 100 ml @ 400 mls/hr BID IV 12/17/24 22:00 12/20/24 08:28 400 MLS/HR Trimethoprim/ Sulfamethoxazole 30 ml/Dextrose 530 ml @ 343.351 mls/hr Q8H IV 12/18/24 01:30 12/20/24 10:55 343.351 MLS/HR Thiamine HCl 100 mg DAILY PO 12/19/24 10:00 12/20/24 09:05 100 MG Propofol 100 ml @ 2.685 mls/ hr Q24H IV 12/18/24 20:45 12/20/24 11:56 26.85 MLS/HR Insulin Glargine 15 units DAILY@1000 SC 12/20/24 10:00 12/20/24 09:08 15 UNITS Fentanyl Citrate 250 ml @ 2.5 mls/hr Q24H IV 12/20/24 02:45 12/20/24 06:31 35 MLS/HR Furosemide 20 mg DAILY IV 12/21/24 10:00 Ketamine HCl 500 mg/Sodium Chloride 500 ml @ 5.382 mls/ hr Q24H IV 12/20/24 11:30 12/20/24 12:50 5.382 MLS/HR Examination General: RASS -5, afebrile, mucosae are moist Cardiovascular: Normal S1 and S2. No murmurs, gallops or rubs Respiratory: Left-sided mild crackles GI: Soft, nontender, no organomegaly, normal bowel sounds : Orellana catheter n place, clear yellow urine in collection bag MSK/skin: Mobilization of limbs cannot be evaluated. Skin is dry and warm. IV accesses: A small 2 x 2 cm scab noticed at the heel of left foot. Neurological: Orientation cannot be assessed. No apparent motor no sensitive deficits. Pupils are isocoric and reactive laboratory and microbiology Laboratory Tests 12/20/24 02:49 Test 12/20/24 02:49 Range/Units Serum Glucose 195 #H 74-106 mg/dL Microbiology Date/Time Source Procedure Growth Status 12/19/24 16:35 Voided Urine Urine Culture - Preliminary Resulted 12/19/24 07:12 Blood Blood Culture - Preliminary NO GROWTH AFTER 24 HOURS OF INCUBATION. Resulted 12/18/24 13:00 Thigh Right Gram Stain - Final Resulted 12/18/24 13:00 Thigh Right Wound Culture - Preliminary Resulted 12/01/24 00:00 Sputum Endotracheal Wash Gram Stain - Final Complete 12/01/24 00:00 Respiratory Culture - Final Klebsiella pneumoniae Complete Labs and/or images reviewed: Labs reviewed by me, Image(s) reviewed by me Problem List/Assessment/Plan Problem List/Assessment/Plan This is a 44-year-old male with past medical history of CVA, subdural hematoma, (status post EYE PHYSICIAN shunt), depression, diabetes type 1, and bipolar disorder brought to the hospital due to nausea, vomiting, diarrhea and altered mental status. Had admitted with primary diagnosis of DKA/HHS. And had admitted and intubated on 12/01. NEURO: Acute metabolic encephalopathy, likely due to DKA/HHS/sepsis History of intracerebral hemorrhage, status post EYE PHYSICIAN shunt Possible alcohol withdrawal History of epilepsy Bipolar disorder/depression * Head CT scan 12/01, no new intracranial abnormalities * RASS score -4 * Discontinue quetiapine and gabapentin * Continue home meds: Keppra, oxygen carbamazepine, valproic acid * Plan: Versed, fentanyl , propofol, Precedex, Ketamine CARDIOVASCULAR: Sinus tachycardia RESPIRATORY: Acute hypoxic respiratory failure, likely due to pneumonia Pneumonia, due to Klebsiella pneumoniae Aspiration pneumonia * Chest x-ray shows bilateral haziness, with prominent bronchovascular marking * MV setting: VC mode, TV 400, RR 20, FiO2 50%, peep 8 * Plan: Mechanical ventilation, breathing treatment and IV antibiotic. * Surgery recommended PEEP around 5 and FiO2 around 35. As current FiO2 50 and PEEP 8. Postpone surgery for today. We will schedule when patient reliable on vent setting. 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 * Blood and urine culture 12/01, Shows no growth * Discontinued Rocephin (12/01-12/06), azithromycin (12/01-12/06) and clindamycin (12/04-12/06) * Discontinue vancomycin (12/06 given up to 12/11), and cefepime (12/07 given up to 12/11) * Discontinue linezolid (12/11 given until 12/17), Meropenem (12/11 given up to 12/18) * Plan: Continue Bactrim (12/17) HEMATOLOGY: Mild anemia, normocytic normochromic ENDOCRINE: Diabetes type 1 DKA/HHS * Plan: ISS METABOLIC: Hypokalemia Hyponatremia Hypomagnesemia Hypophosphatemia Hyperphosphatemia MSK/SKIN: Skin scab, on the heel of left leg New skin eruptions (xerosis/seborrheic dermatitis, possibly due to ICU related skin dryness), possible drug eruption or infection related * New erythematous/scaly rashes noted on checks, face and neck, no parts of body and mucosal involvement, patient is sedated and can not report any symptoms * Plan: Eucerin cream, monitoring eosinophils DIET: Tube feeding, Glucerna DVT prophylax: Lovenox GI prophylaxis: Protonix Bowel regimen: Lactulose LINES/DEVICES ETT: Intubated on 12/01 IV access: PICC line placed on 11/07 Drips: Fentanyl, Versed and propofol Orellana catheter: Placed on 12/01. Disposition: Continue ICU status Family: Patients friends (Durga and Tristen) and sister unable to reach after repeated attempts over the phone. Critical care time: Spent > 83 min, spent in direct critical care, including evaluation, management, review of labs/imaging, and multidisciplinary/family discussions, (excluding any procedures). Case discussed with Dr. Valentino. Plan discussed with: Other My Orders My Orders Orders - SEAN DE LOS SANTOS Procedure Category Date Status Time Chest Xray 1 View XY 12/20/24 Resulted 04:00 Abg W/ Co-Ox RT 12/20/24 Logged 04:00 Fentanyl Drip PHA 12/20/24 In Process 2500mcg/250mlns 02:45 Furosemide Injection PHA 12/21/24 In Process (Lasix Injection) 10:00 Sodium Chl 0.9% PHA 12/20/24 In Process (So... W/Ketamine 11:30 Chest Xray 1 View XY 12/20/24 Resulted 11:22 Dietary Evaluation Review Comments: 1) Initiate thiamin, folic acid, and MVI supplementation d/t recent ETOH abuse 2) If patient remains NPO > 7 days, consider EN/TPN to meet at least 75% of estimated daily needs 3) If GI is preferred, initiate Glucerna 1.2 @ 60 mL/hr goal rate as tolerated. Flush with 150 mL Q6H. TF regimen will provide 1728 kcals, 86g Pro, and 1759 mL free H2O (including flushes) per 24 hrs. Goal rate will meet ~87% estimated daily energy needs and ~72% estimated daily protein needs 4) Advance to 60g CCHO cardiac diet when medically feasible, pending ST approval 5) Collect HbA1c 6) Refer to outpatient RD/[facility] for diabetes education 7) Follow-up with cardiology, pulmonology, and psychiatry 8) Follow-up with social work faculty member r/t ETOH abuse 9) Continue to monitor I&O, labs, and skin integrity Expected Outcomes/Goals: 1) patient to receive nutritional support within 7 days of NPO status 2) labs and GI symptoms to improve 3) diet to advance 4) follow-up in 2-3 days Date of Service: Dec 21, 2024 Billing Provider: APRIL VALENTINO MD Common Visit Codes: [id number] CARE 30-74 MIN, [id number] CARE-EACH +30MIN SEAN DE LOS SANTOS RESDIENT Dec 20, 2024 16:02 APRIL VALENTINO MD Dec 21, 2024 10:36
[2024-12-21] VITALS (109 sets, daily range): BP systolic 83–155; BP diastolic 45–101; PULSE 66–116; RESP 16–25; TEMP 95.2–99.5; O2SAT 86–100
[2024-12-21 03:29] LABS: Hematocrit 27.0 % (41.0-53.0)
[2024-12-21 03:32] LABS: Hemoglobin 9.4 g/dL (13.5-17.5); Mean Corpuscular Hemoglobin 30.3 pg (28.0-32.0); Mean Corpuscular Volume 87.3 fL (80.0-100.0); Nucleated Red Blood Cells % 0.0 %
[2024-12-21 03:37] LABS: Carbamazepine (Tegretol) 8.6 ug/mL (4-12)
[2024-12-21 03:39] LABS: Alanine Aminotransferase 26 U/L (7-40); Anion Gap 10 (5-15); Calcium 8.8 mg/dL (8.7-10.4); Carbon Dioxide 26 mmol/L (20-31); Chloride 105 mmol/L (98-107); Sodium 141 mmol/L (136-145)
[2024-12-21 03:40] LABS: Total Protein 6.2 g/dL (5.7-8.2)
[2024-12-21 03:58] LABS: Albumin 2.9 g/dL (3.2-4.8); Alkaline Phosphatase 235 U/L (46-116); BUN/Creatinine Ratio 7.1 (10.0-20.0); Bilirubin, Total < 0.2 mg/dL (0.2-1.0); Blood Urea Nitrogen < 5 mg/dL (9-23); Glucose 128 mg/dL (74-106); Potassium 3.4 mmol/L (3.5-5.1)
--- NOTE | 2024-12-21 05:44 | DVH ---
CHEST RADIOGRAPH Indication: Pneumonia Technique: Single frontal view of the chest was obtained Comparison: XY CHEST XRAY 1 VIEW on DOS: 12/20/24. FINDINGS: Lines and Tubes: There is right PICC terminates in the right atrium. There is a right central venous catheter with the tip terminating in the upper SVC. The endotracheal tube measures 5.5 cm. The ente faby tube terminates in the stomach. Lungs: Bilateral pulmonary consolidation. Pleura: Bilateral pleural effusions. No pneumothorax. Cardiomediastinal contours: Stable. Bones: No acute osseous abnormality. IMPRESSION: 1. Similar position of the support lines and tubes. 2. Bilateral airspace disease and pleural effusions.
[2024-12-21 06:07] LABS: Chlamydia Trachomatis, NAA Negative (Negative); Neisseria gonorrhoeae, NAA Negative (Negative)
[2024-12-21 06:52] LABS: Base Excess 2.4 mmol/L (-2.0-3.0)
[2024-12-21] MEDS: FUROSEMIDE 40 MG/4 ML VIAL IV SCH (09:42)
--- NOTE | 2024-12-21 10:09 | DVH ---
Date: 12/21/2024 08:55 AM Examination: XY KUB ABDOMEN SINGLE VIEW History: Dobhoff Tube location Comparison: XY KUB ABDOMEN SINGLE VIEW on DOS: 12/19/24, XY KUB ABDOMEN SINGLE VIEW on DOS: 12/14/24, XY KUB ABDOMEN SINGLE VIEW on DOS: 12/13/24, XY KUB ABDOMEN SINGLE VIEW on DOS: 12/12/24, CT ABD PELVIS WO/W on DOS: 06/29/24 TECHNIQUE: Frontal views of the abdomen was obtained. FINDINGS: Bowel gas pattern is unremarkable. Weighted tip feeding tube projects over the stomach. Large stool burden. The lung bases are collimated from field of view.. No acute osseous abnormality identified. IMPRESSION: Nonobstructive bowel gas pattern. Large stool burden.
--- NOTE | 2024-12-21 10:26 | DVHPNRES ---
Progress Note Date Seen: Dec 21, 2024 Resident Creating Document: SEAN DE LOS SANTOS RESDIENT Medical Necessity Reason Pt with a Central, PICC or Fol: Yes The following are medically ne: Central Line, Orellana Catheter Subjective Review of Systems This is a 44-year-old male with past medical history of asthma, CVA, intracerebral hemorrhage, subdural hematoma, (status post MACHINE [employer] shunt, 10 years back), depression, diabetes type 1, hypertension, seizure, bipolar disorder brought to the hospital due to altered mental status. Per patient's roommate, he has not been using his medicine since 1 week, and had developed nausea, vomiting and diarrhea since 3 days, and since 1 day has been altered. Denies fever, loss of consciousness, or any trauma. 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 Lives with friend at home. At baseline mobile, but does not work, on disability Home medication: Quetiapine, sertraline, gabapentin, insulin NPH, levetiracetam, oxcarbazepine, and hydroxyzine, noncompliant with the medicine Patient seen and examined at bedside. Patient is sedated and on mechanical ventilation. Objective vital signs Vital Sign Date Time Temp Pulse Resp B/P (MAP) Pulse Ox O2 Delivery O2 Flow Rate FiO2 12/21/24 09:42 99/62 12/21/24 09:26 68 24 93 100 12/21/24 06:00 Mechanical Ventilator+ 12/21/24 04:00 97.8 97.8 Total Intake and Output 12/20/24 12/20/24 12/21/24 14:59 22:59 06:59 Intake Total 1466.011 ml 1144.016 ml 1072.146 ml Output Total 3300 ml 2800 ml Balance 1466.011 ml -2155.984 ml -1727.854 ml medications Current Medications Medications Dose Ordered Sig/Misa Route Start Time Stop Time Status Last Admin Dose Admin Midazolam HCl 50 ml @ 1 mls/hr Q24H IV 12/01/24 12:45 12/21/24 07:38 15 MLS/HR Dextrose 50 ml UD PRN IV 12/01/24 13:30 Cancel Insulin Glargine 15 units DAILY SC 12/02/24 10:00 Cancel Dextrose 50 ml UD PRN IV 12/01/24 16:45 Cancel Acetaminophen 650 mg Q6HP PRN PO 12/01/24 16:45 12/18/24 07:01 650 MG Famotidine 20 mg DAILY IV 12/02/24 10:00 12/21/24 09:38 20 MG Ipratropium [place] 0.5 mg Q4HR NEB 12/01/24 18:00 12/21/24 09:25 0.5 MG Albuterol 2.5 mg Q4HPRN PRN NEB 12/01/24 18:00 12/21/24 09:25 2.5 MG Diagnostic Test (Pha) 1 strip Q6HR 12/02/24 18:00 12/21/24 05:56 1 STRIP Insulin Human Regular Q6HR SC 12/02/24 18:00 12/21/24 05:56 2 UNITS Dextrose 50 ml UD PRN IV 12/02/24 15:45 Lorazepam 1 mg Q5MINP PRN IV 12/03/24 01:45 12/03/24 03:43 1 MG Enteral Nutritional Formula 1,000 ml 40ML/HR GT 12/03/24 09:30 12/17/24 23:41 1,000 ML Levetiracetam 100 ml @ 400 mls/hr BID IV 12/03/24 10:00 UNV Norepinephrine Bitartrate 250 ml @ 3.75 mls/hr Q24H IV 12/04/24 19:15 12/20/24 06:23 3.75 MLS/HR Lactulose 30 ml Q6HR GT 12/05/24 08:45 12/21/24 05:33 30 ML Carbamazepine 400 mg BID GT 12/05/24 22:00 12/21/24 09:43 400 MG Sodium Chloride 10 ml QSHIFT@10,22 IV 12/07/24 22:00 12/21/24 09:44 10 ML Multi-Ingredient Ointment 1 applic DAILY TOP 12/09/24 10:00 12/21/24 10:01 1 APPLIC Valproate Sodium 500 mg/Sodium Chloride 105 ml @ 105 mls/hr BID IV 12/15/24 22:00 12/21/24 10:13 105 MLS/HR Trimethoprim/ Sulfamethoxazole 0 ml @ 0 mls/hr PER PHARMACY IV 12/17/24 11:30 Metoclopramide HCl 10 mg Q8HR IV 12/17/24 16:45 12/21/24 05:33 10 MG Levetiracetam 100 ml @ 400 mls/hr BID IV 12/17/24 22:00 12/21/24 09:17 400 MLS/HR Trimethoprim/ Sulfamethoxazole 30 ml/Dextrose 530 ml @ 343.351 mls/hr Q8H IV 12/18/24 01:30 12/21/24 10:01 343.351 MLS/HR Thiamine HCl 100 mg DAILY PO 12/19/24 10:00 12/21/24 10:01 100 MG Propofol 100 ml @ 2.685 mls/ hr Q24H IV 12/18/24 20:45 12/21/24 07:33 2.685 MLS/HR Insulin Glargine 15 units DAILY@1000 SC 12/20/24 10:00 12/21/24 10:00 15 UNITS Fentanyl Citrate 250 ml @ 2.5 mls/hr Q24H IV 12/20/24 02:45 12/20/24 22:49 35 MLS/HR Furosemide 20 mg DAILY IV 12/21/24 10:00 12/21/24 09:42 20 MG Ketamine HCl 500 mg/Sodium Chloride 500 ml @ 5.382 mls/ hr Q24H IV 12/20/24 11:30 12/20/24 12:50 5.382 MLS/HR Potassium Chloride 100 ml @ 50 mls/hr Q2H IV 12/21/24 08:15 12/21/24 12:14 UNV Examination General: RASS -5, afebrile, mucosae are moist Cardiovascular: Normal S1 and S2. No murmurs, gallops or rubs Respiratory: Left-sided mild crackles GI: Soft, nontender, no organomegaly, normal bowel sounds : Orellana catheter n place, clear yellow urine in collection bag MSK/skin: Mobilization of limbs cannot be evaluated. Skin is dry and warm. IV accesses: A small 2 x 2 cm scab noticed at the heel of left foot. Neurological: Orientation cannot be assessed. No apparent motor no sensitive deficits. Pupils are isocoric and reactive laboratory and microbiology Laboratory Tests 12/21/24 02:43 Test 12/21/24 02:43 Range/Units Serum Glucose 128 H 74-106 mg/dL Microbiology Date/Time Source Procedure Growth Status 12/19/24 16:35 Voided Urine Urine Culture - Preliminary Resulted 12/19/24 07:12 Blood Blood Culture - Preliminary NO GROWTH AFTER 48 HOURS OF INCUBATION. Resulted 12/18/24 13:00 Thigh Right Gram Stain - Final Resulted 12/18/24 13:00 Thigh Right Wound Culture - Preliminary Resulted 12/01/24 00:00 Sputum Endotracheal Wash Gram Stain - Final Complete 12/01/24 00:00 Respiratory Culture - Final Klebsiella pneumoniae Complete Labs and/or images reviewed: Labs reviewed by me, Image(s) reviewed by me Problem List/Assessment/Plan Problem List/Assessment/Plan This is a 44-year-old male with past medical history of CVA, subdural hematoma, (status post MACHINE [employer] shunt), depression, diabetes type 1, and bipolar disorder brought to the hospital due to nausea, vomiting, diarrhea and altered mental status. Had admitted with primary diagnosis of DKA/HHS. And had admitted and intubated on 12/01. NEURO: Acute metabolic encephalopathy, likely due to DKA/HHS/sepsis History of intracerebral hemorrhage, status post MACHINE [employer] shunt Possible alcohol withdrawal History of epilepsy Bipolar disorder/depression * Head CT scan 12/01, no new intracranial abnormalities * RASS score -4 * Discontinue quetiapine and gabapentin * Continue home meds: Keppra, oxygen carbamazepine, valproic acid * Plan: Versed, fentanyl , propofol, Precedex, Ketamine CARDIOVASCULAR: Sinus tachycardia RESPIRATORY: Acute hypoxic respiratory failure, likely due to pneumonia Pneumonia, due to Klebsiella pneumoniae Aspiration pneumonia * Chest x-ray shows bilateral haziness, with prominent bronchovascular marking * MV setting: VC mode, TV 400, RR 20, FiO2 50%, peep 8 * Plan: Mechanical ventilation, breathing treatment and IV antibiotic. * Surgery recommended PEEP around 5 and FiO2 around 35. As current FiO2 50 and PEEP 8. Postpone surgery for today. We will schedule when patient reliable on vent setting. 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 * Blood and urine culture 12/01, Shows no growth * Discontinued Rocephin (12/01-12/06), azithromycin (12/01-12/06) and clindamycin (12/04-12/06) * Discontinue vancomycin (12/06 given up to 12/11), and cefepime (12/07 given up to 12/11) * Discontinue linezolid (12/11 given until 12/17), Meropenem (12/11 given up to 12/18) * Plan: Continue Bactrim (12/17) HEMATOLOGY: Mild anemia, normocytic normochromic ENDOCRINE: Diabetes type 1 DKA/HHS * Plan: ISS METABOLIC: Hypokalemia Hyponatremia Hypomagnesemia Hypophosphatemia Hyperphosphatemia MSK/SKIN: Skin scab, on the heel of left leg New skin eruptions (xerosis/seborrheic dermatitis, possibly due to ICU related skin dryness), possible drug eruption or infection related * New erythematous/scaly rashes noted on checks, face and neck, no parts of body and mucosal involvement, patient is sedated and can not report any symptoms * Plan: Eucerin cream, monitoring eosinophils DIET: Tube feeding, Glucerna DVT prophylax: Lovenox GI prophylaxis: Protonix Bowel regimen: Lactulose LINES/DEVICES ETT: Intubated on 12/01 IV access: PICC line placed on 11/07 Drips: Fentanyl, Versed and propofol Orellana catheter: Placed on 12/01. Disposition: Continue ICU status Family: Patients friends (Durga and Tristen) and sister unable to reach after repeated attempts over the phone. Critical care time: Spent > 83 min, spent in direct critical care, including evaluation, management, review of labs/imaging, and multidisciplinary/family discussions, (excluding any procedures). Case discussed with Dr. Valentino. Plan discussed with: Patient, Other (RN) My Orders My Orders Orders - SEAN DE LOS SANTOS RESDIENT Procedure Category Date Status Time Furosemide Injection PHA 12/21/24 In Process (Lasix Injection) 10:00 Sodium Chl 0.9% PHA 12/20/24 In Process (So... W/Ketamine 11:30 Chest Xray 1 View XY 12/20/24 Resulted 11:22 Chest Xray 1 View XY 12/21/24 Resulted 04:00 Abg W/ Co-Ox RT 12/21/24 Logged 04:00 Potassium Chl PHA 12/21/24 Logged 20meq/100ml 08:15 Kub Abdomen Single XY 12/21/24 Resulted View 08:44 Dietary Evaluation Review Comments: 1) Initiate thiamin, folic acid, and MVI supplementation d/t recent ETOH abuse 2) If patient remains NPO > 7 days, consider EN/TPN to meet at least 75% of estimated daily needs 3) If GI is preferred, initiate Glucerna 1.2 @ 60 mL/hr goal rate as tolerated. Flush with 150 mL Q6H. TF regimen will provide 1728 kcals, 86g Pro, and 1759 mL free H2O (including flushes) per 24 hrs. Goal rate will meet ~87% estimated daily energy needs and ~72% estimated daily protein needs 4) Advance to 60g CCHO cardiac diet when medically feasible, pending ST approval 5) Collect HbA1c 6) Refer to outpatient RD/[facility] for diabetes education 7) Follow-up with cardiology, pulmonology, and psychiatry 8) Follow-up with social worker psychiatric r/t ETOH abuse 9) Continue to monitor I&O, labs, and skin integrity Expected Outcomes/Goals: 1) patient to receive nutritional support within 7 days of NPO status 2) labs and GI symptoms to improve 3) diet to advance 4) follow-up in 2-3 days Date of Service: Dec 21, 2024 Billing Provider: APRIL VALENTINO MD Common Visit Codes: [id number] CARE 30-74 MIN, [id number] CARE-EACH +30MIN SEAN DE LOS SANTOS RESDIENT Dec 21, 2024 10:26 APRIL VALENTINO MD Dec 23, 2024 11:09
[2024-12-21] MEDS ORDERED: MEROPENEM 1GM IVPB 50 ML IV ONE (12:15)
[2024-12-21] MEDS ORDERED: MEROPENEM 1GM IVPB 50 ML IV SCH (14:00)
[2024-12-21] MEDS: POTASSIUM CHL 20MEQ/100ML 100 ML IV SCH (14:42)
--- NOTE | 2024-12-21 16:03 | DVH ---
CHEST RADIOGRAPH Indication: DOBB VÍCTOR PLACEMENT VERIFICATION Technique: Single frontal view of the chest was obtained Comparison: XY CHEST XRAY 1 VIEW on DOS: 12/21/24, XY CHEST XRAY 1 VIEW on DOS: 12/20/24, XY CHEST XR AY 1 VIEW on DOS: 12/20/24. Right internal jugular catheter in place in the superior vena cava. FINDINGS: Lines and Tubes: Endotracheal tube is 4.2 cm above the laci. Dobbhoff tube is noted below the diaph ragm in the stomach. Lungs: Unimproved airspace disease noted bilaterally worse on the right than the left. Pleura: No effusion. No pneumothorax. Cardiomediastinal contours: Unremarkable Bones: No acute osseous abnormality. IMPRESSION: 1. Endotracheal tube in place 4.2 cm above the laci. 2. Dobbhoff tube below the diaphragm in the distal stomach. 3. Unimproved pulmonary infiltrates compared earlier film 5 a.m. Same day.
[2024-12-21] MEDS: KETAMINE 50mg/ML 10ml Vial 500 MG in SODIUM CHL 0.9% 490 ML IV SCH (17:10)
[2024-12-21] MEDS: VALPROATE INJ 500 MG in SODIUM CHL 0.9% 100 ML IV ONE (17:44)
[2024-12-21] MEDS: MEROPENEM 1GM IVPB 50 ML IV SCH (18:04)
[2024-12-21] MEDS: NOREPINEPHRINE 8 MG/250ML KIT 250 ML IV SCH (18:15)
[2024-12-21] MEDS: SULFAMETH-TRIMETH 80/16MG-ML 20 ML in D5W 5% 500 ML IV SCH (19:23)
[2024-12-21] MEDS: VALPROATE INJ 1,000 MG in SODIUM CHL 0.9% 100 ML IV SCH (21:25)
--- NOTE | 2024-12-21 22:18 | DVHINCON2 ---
Date of service: Dec 21, 2024 Family History: Asthma G8 MOTHER Allergies: Coded Allergies: Watermelon Flavoring Agent (non-scr (Verified Allergy, Unknown, 12/30/22) Home Meds Reported Medications Quetiapine Fumarate (Quetiapine Fumarate ER) 400 Mg Tab, 1 TAB PO DAILY for 90 Days, #90 12/21/23 Aripiprazole (Abilify) 20 Mg Tab, 15 MG PO DAILY for 30 Days, #30 12/21/23 Gabapentin (Gabapentin) 300 Mg Cap, 1 CAP PO TID for 30 Days, #90 12/21/23 Albuterol Sulfate (Albuterol Sulfate Hfa) 108 Mcg/Act Aer, 1 PUFF INH Q4HR for 34 Days, #18 12/21/23 Tamsulosin HCl (Tamsulosin Hydrochloride) 0.4 Mg Cap, 1 CAP PO DAILY for 90 Days, #90 09/26/23 Hydroxyzine HCl (Hydroxyzine Hydrochloride) 25 Mg Tab, 1 TAB PO BID for 30 Days, #60 09/26/23 Oxcarbazepine (Trileptal) 600 Mg Tab, 300 MG PO DAILY, TAB 09/26/23 Sertraline Hcl (Sertraline Hcl) 50 Mg Tab, 150 MG PO DAILY for 30 Days, MG 09/26/23 Divalproex Sodium (Divalproex Sodium) 500 Mg Tab, 500 MG PO BID, MG 09/26/23 Levetiracetam (KEPPRA TABLET) 500 Mg Tb, 750 MG PO BID, TAB 09/26/23 Insulin NPH (Human) (Isophane) (Humulin N) 100 Unit/Ml Inj, UNIT SC UD for 84 Days, #30 08/29/20 Cariprazine HCl (Vraylar) 6 Mg Cap, 6 MG PO QAM, CAP 08/29/20 Benztropine Mesylate (Benztropine Mesylate) 1 Mg Tab, 1.5 MG PO QAM, MG 08/29/20 Current Medications Current Medications Medications (Trade) Dose Ordered Sig/Misa Route PRN Reason Start Time Stop Time Status Last Admin Furosemide (Lasix Injection) 20 mg DAILY IV 12/21/24 10:00 12/21/24 09:42 Potassium Chloride 100 ml @ 50 mls/hr Q2H IV 12/21/24 12:00 12/21/24 15:59 DC 12/21/24 16:28 Trimethoprim/ Sulfamethoxazole 20 ml/Dextrose 520 ml @ 346 mls/hr Q8H IV 12/21/24 17:30 12/21/24 19:23 Valproate Sodium 1000 mg/Sodium Chloride 110 ml @ 110 mls/hr BID IV 12/21/24 22:00 12/21/24 21:25 Meropenem 50 ml @ 17 mls/hr Q8HR IV 12/21/24 14:00 12/21/24 14:11 DC Meropenem 50 ml @ 17 mls/hr Q6H IV 12/21/24 14:15 12/21/24 18:04 Ketamine HCl 500 mg/Sodium Chloride 500 ml @ 5.382 mls/ hr Q24H IV 12/21/24 15:15 12/21/24 17:10 Norepinephrine Bitartrate 250 ml @ 3.75 mls/hr Q24H IV 12/21/24 18:15 Vital Signs Vital Signs Date Time Temp Pulse Resp B/P (MAP) Pulse Ox O2 Delivery O2 Flow Rate FiO2 12/21/24 21:43 93 24 102/58 (73) 99 80 12/21/24 20:15 98.6 209.5 12/21/24 20:00 Mechanical Ventilator+ Labs/Diagnostic Data Labs Test 12/21/24 16:59 12/21/24 06:43 12/21/24 02:43 12/19/24 16:35 Range/Units POC Glucose 169 H 70-106 mg/dl Blood Gas Specimen Type Arterial Blood Gas Sample Site Left radial Blood Gas Patient Temperature 37.0 Arterial Blood Date Drawn [id number] Arterial Blood pH 7.532 H 7.350-7.450 Arterial Blood Partial Pressure CO2 30.1 L 35.0-48.0 mmHg Arterial Blood Partial Pressure O2 62.8 L 83.0-108.0 mmHg Arterial Blood HCO3 24.7 21.0-28.0 mmol/L Arterial Blood Oxygen Saturation 91.5 L 94.0-98.0 % Arterial Blood Base Excess 2.4 -2.0-3.0 mmol/L Arterial Blood Oxyhemoglobin 91.0 L 94.0-98.0 % Arterial Blood Carboxyhemoglobin 0.3 L 0.5-1.5 % Arterial Blood Methemoglobin 0.3 0.0-1.5 % Eligio Test Modified Blood Gas Total Hemoglobin 10.30 L 13.5-17.5 g/dL Blood Gas Set Respiration Rate 24.0 Blood Gas Modality Vent - ac FiO2 % 75.0 Blood Gas Tidal Volume 400.0 Blood Gas PEEP or CPAP 8.0 White Blood Count 14.2 H 4.4-10.8 10^3/uL Red Blood Count 3.09 L 4.5-5.90 10^6/uL Hemoglobin 9.4 L 13.5-17.5 g/dL Hematocrit 27.0 L 41.0-53.0 % Mean Corpuscular Volume 87.3 80.0-100.0 fL Mean Corpuscular Hemoglobin 30.3 28.0-32.0 pg Mean Corpuscular Hemoglobin Concent 34.7 32.0-36.0 g/dL Red Cell Distribution Width 14.1 11.8-14.3 % Platelet Count 685 H 140-450 10^3/uL Mean Platelet Volume 8.1 6.9-10.8 fL Neutrophils (%) (Auto) 74.7 37.0-80.0 % Lymphocytes (%) (Auto) 12.0 10.0-50.0 % Monocytes (%) (Auto) 6.0 0.0-12.0 % Eosinophils (%) (Auto) 6.8 0.0-7.0 % Basophils (%) (Auto) 0.5 0.0-2.0 % Neutrophils # (Auto) 10.6 H 1.6-8.6 10 ^3/uL Lymphocytes # (Auto) 1.7 0.4-5.4 10 ^3/uL Monocytes # (Auto) 0.8 0-1.3 10 ^3/uL Eosinophils # (Auto) 1.0 H 0-0.8 10 ^3/uL Basophils # (Auto) 0.1 0-0.2 10 ^3/uL Nucleated Red Blood Cells 0.0 % Sodium Level 141 136-145 mmol/L Potassium Level 3.4 L 3.5-5.1 mmol/L Chloride Level 105 98-107 mmol/L Carbon Dioxide Level 26 20-31 mmol/L Anion Gap 10 5-15 Blood Urea Nitrogen < 5 L 9-23 mg/dL Creatinine 0.70 0.700-1.30 mg/dL Glomerular Filtration Rate Calc 117 >90 mL/min BUN/Creatinine Ratio 7.1 L 10.0-20.0 Serum Glucose 128 H 74-106 mg/dL Calcium Level 8.8 8.7-10.4 mg/dL Magnesium Level 1.7 1.6-2.6 mg/dL Total Bilirubin < 0.2 L 0.2-1.0 mg/dL Aspartate Amino Transferase (AST) 42 H 13-40 U/L Alanine Aminotransferase (ALT) 26 7-40 U/L Alkaline Phosphatase 235 H 46-116 U/L Total Protein 6.2 5.7-8.2 g/dL Albumin 2.9 L 3.2-4.8 g/dL Valproic Acid Level 12.3 L 50-100 ug/mL Carbamazepine (Tegretol) Level 8.6 4-12 ug/mL Chlamydia trachomatis (GABRIELA) Negative Negative Neisseria gonorrhoeae (GABRIELA) Negative Negative Test 12/19/24 11:15 12/19/24 07:03 12/19/24 02:53 12/18/24 03:55 Range/Units Lactic Acid Level 1.1 0.4-2.0 mmol/L Treponema pallidum Antibody Non-reactive Negative Hepatitis A IgM Antibody Negative Hepatitis B Surface Antigen Negative Negative Hepatitis B Core IgM Antibody Negative Negative Hepatitis C Antibody Negative Creatine Kinase 24 L 46-171 U/L Triglycerides Level 378 H < 150 mg/dL Differential Total Cells Counted 100.0 100 Neutrophils % (Manual) 64 37.0-80.0 Band Neutrophils % (Manual) 2 Lymphocytes % (Manual) 22 10.0-50.0 Monocytes % (Manual) 6 0-12 Eosinophils % (Manual) 5 0-7 Basophils % (Manual) 0 0.0-2.0 Metamyelocytes % (manual) 0 Myelocytes % (Manual) 1 Promyelocytes % (Manual) 0 Blast Cells % (Manual) 0 Reactive Lymphocytes 0 Platelet Estimate Increased Test 12/17/24 07:31 12/17/24 03:30 12/16/24 02:27 12/15/24 03:07 Range/Units Blood Gas Spontaneous Rate 26 Anisocytosis (manual) Slight Vitamin B12 Level 1022 H 211-911 pg/mL Vitamin D 25-Hydroxy 24.7 L 30.0-100 ng/mL Thyroid Stimulating Hormone (TSH) 4.17 0.55-4.78 uIU/mL Large Platelets Few Prothrombin Time 10.7 9.3-11.8 sec Prothrombin Time INR 1.01 0.9-1.15 Activated Partial Thromboplast Time 30.2 24.5-34.5 SEC Levetiracetam Level 10.9 10.0-40.0 ug/mL Test 12/10/24 03:33 12/09/24 16:03 12/07/24 14:15 12/04/24 11:30 Range/Units Hemoglobin A1c 10.5 H <5.7 % A1C Vancomycin Level Trough 11.0 H 5-10 ug/mL HIV (1&2) Antibody Negative Negative Phosphorus Level 2.7 2.4-5.1 mg/dL Ammonia 10 L 11-32 umol/L Test 12/02/24 14:31 12/02/24 08:47 12/01/24 17:06 12/01/24 16:50 Range/Units Urine Color Colorless Yellow Urine Clarity Turbid H Clear Urine pH 6.0 5.0-9.0 Urine Specific [place] 1.011 1.001-1.035 Urine Protein Negative Negative Urine Ketones Trace Negative Urine Blood 2+ H Negative /uL Urine Nitrite Negative Negative Urine Bilirubin Negative Negative Urine Urobilinogen Normal Negative mg/dL Urine Leukocyte Esterase 3+ Negative /uL Urine RBC 14 0 - 3 /hpf Urine Microscopic WBC 30 H 0-3 /HPF Urine Squamous Epithelial Cells Few <5 /hpf Urine Bacteria Few H None Seen /hpf Urine Glucose Normal Normal mg/dL Lipase 151 H 12-53 U/L Erythrocyte Sedimentation Rate 7 0-20 mm/hr C-Reactive Protein High Sensitivity 2.01 H <1.0 mg/dL Beta-Hydroxybutyric Acid > 4.500 H < 0.4 mmol/L Blood Gas Critical Value Read Back yes Blood Gas Notified Whom Blood Gas Notified Time [id number] Blood Gas Notified By supervisor poultry processing dean Test 12/01/24 13:23 12/01/24 00:00 Range/Units Macrocytosis Moderate Serum Osmolality 355 H 278-298 mOsm/kg Urine Mucus Few None Seen Microbiology Date/Time Source Procedure Growth Status 12/19/24 16:35 Voided Urine Urine Culture - Preliminary Resulted 12/19/24 07:12 Blood Blood Culture - Preliminary NO GROWTH AFTER 48 HOURS OF INCUBATION. 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75) on insulin infusion -Acute kidney injury (Cr 2.36 on presentation) -CHIEF MEDIA OFFICER shunt in place; distal catheter location uncertain -Right anterior thigh ulcer/vesicular lesion with preliminary culture showing filamentous fungi and Bacillus species (non-anthracis); left heel deep pressure ulcer; nodular left earlobe lesion -Seizure disorder (on levetiracetam) -Psychiatric comorbidities (schizophrenia, bipolar disorder, anxiety, depression) -Hypertension, asthma, vitamin D deficiency -Alcohol use (heavy per roommate), marijuana use Assessment This is a 44-year-old male with a history of asthma, anxiety, depression, schizophrenia, bipolar disorder, seizure disorder, hypertension, type 1 diabetes, prior stroke, intracranial hemorrhage with subdural hematoma, and CHIE[employer]IA [employer]ICER shunt, who presented with acute loss of consciousness following 3 days of nausea, vomiting, diarrhea, no oral intake, and severe hyperglycemia. He was intubated on arrival for airway protection. Initial vitals notable for hypothermia (94.3 F), tachycardia (~125 bpm), RR 29, BP 108/57, SpO2 100% on nasal cannula (later intubated), glucose >600 mg/dL, pH 6.75, WBC 28, Na 121, B UN 24, Cr 2.36. Antimicrobial timeline: -Initially ceftriaxone + azithromycin for community-acquired/aspiration pneumonia. -12/01 tracheal culture: Klebsiella pneumoniae, consistent with aspiration pneumonia. -12/07 blood culture: staph hobby (as reported), 1/4 bottles, likely contaminant. -12/04 clindamycin added for MRSA coverage; vancomycin avoided due to REYNALDO. -12/06 switched to cefepime for worsening pneumonia. -12/11 transitioned to linezolid + meropenem for persistent fevers/hypoxia; tracheal culture on 12/11 grew Burkholderia cepacia resistant to ertapenem, cefazolin, and ampicillin; TMP-SMX (Bactrim) susceptible. Linezolid disc ontinued; TMP-SMX started. -Since 12/18: on TMP-SMX + meropenem. Fever curve and WBC have generally improved; hypoxia has fluctuated with FiO2 needs up to 100% at times (now often ~6080% with PEEP ~10). Chest imaging described as showing interval improvement in consolidations with persistent pulmonary vascular congestion and enlarged cardiac silhouette. Clinical impression is ongoing improvement on TMP-SMX, with airway clearance issues (very thick secretions, mucus plugging) contributing to hypoxia. Wound culture from the right thigh preliminarily shows filamentous fungi and Bacillus species (non-anthracis); source of sepsis overall most likely pulmonary; prognosis remains guarded. Plan: -Burkholderia pneumonia: -Continue TMP-SMX (dose by TMP component 1520 mg/kg/day divided q68h; adjust to renal function). -Continue meropenem pending expanded susceptibility testing; discuss with Microbiology to broaden the panel for Burkholderia (including carbapenems and newer agents). Consider extended/prolonged infusion beta-lactam if organism is susceptible. -If inadequate response and susceptibilities permit, potential alternatives include meropenem-vaborbactam (Vabomere), ceftazidime-avibactam (Avycaz), ceftolozane-tazobactam (Zerbaxa), or cefiderocol (Fetroja). -Airway/respiratory: -Frequent secretion clearance/suctioning; consider mucolytics and guaifenesin; consider glycopyrrolate as clinically appropriate. -Chest physiotherapy as tolerated. Defer consideration of corticosteroids and therapeutic bronchoscopy to ICU/Pulmonology. -Hemodynamics: -Vasopressor support to maintain MAP ?65 per ICU team. -Volume status: -Recommend diuresis as tolerated for pulmonary vascular congestion to aid oxygenation. -Wounds: -Right anterior thigh lesion: follow up final culture/speciation and sensitivities; local wound care per primary/wound care team. -Left heel deep pressure ulcer: pressure offloading and wound care per protocol. -Left earlobe nodular lesion: monitor clinically. -Neurologic/psychiatric: -Continue levetiracetam (Keppra) for seizure management per Neurology. -Defer management of schizophrenia/bipolar disorder/anxiety/depression to primary/psychiatry teams. -[employer]F [employer]IA OFFICER shunt: -Distal catheter location unclear (pleural/pericardial possible). Correlate with chest imaging as needed. -Monitoring: -Trend fever curve, WBC, renal function, oxygenation/ventilator requirements. Adjust antimicrobials per clinical course and finalized microbiology. Isolation Precautions: MDR e.coli contact Authorized and Performed by: nelsy madrid Total critical care time: Approximately 76 minutes Due to a high probability of clinically significant, life threatening deterioration, the patient required my highest level of preparedness to intervene emergently and I personally spent this critical care time directly and personally managing the patient. This critical care time included obtaining a history; examining the patient; pulse oximetry; ordering and review of studies; arranging urgent treatment with development of a management plan; evaluation of patient's response to treatment; frequent reassessment; and, discussions with other providers. This critical care time was performed to assess and manage the high probability of imminent, life-threatening deterioration that could result in multi-organ failure. It was exclusive of separately billable procedures and treating other patients and teaching time. Plan is subject to change pending incorporation of new incoming information/diagnostics. Updates may be added as an addendum to this note. Thank you for the consult. ID will continue to follow. Please contact Infectious Disease for any questions or concerns. History: The patient's chart and medications were reviewed in detail and the patient was seen and examined (intubated, sedated). History obtained from chart and care team. Ramon Madden is a 44-year-old male with the above past medical history who presented with acute loss of consciousness after 3 days of nausea, vomiting, diarrhea, no oral intake, and severe hyperglycemia. On arrival he was hypotherm ic, tachycardic, acidemic (pH 6.75), and subsequently intubated. He has had escalating oxygen needs and intermittent vasopressor requirements. He has thick pulmonary secretions. Roommate reports heavy alcohol use, visual hallucinations/delusions prior to admission; also uses marijuana. Review of Systems: -Overall: Limited due to intubation and altered mental status. -Constitutional: Not fully obtainable. -HEENT: Not discussed. -Respiratory: Worsening hypoxia reported; thick sputum. -Cardiovascular: Not discussed. -Gastrointestinal: Nausea, vomiting, diarrhea x3 days prior to admission; no PO intake. -Genitourinary: Not discussed. -Musculoskeletal: Not discussed. -Skin: Right anterior thigh vesicular lesion; left heel deep pressure ulcer; nodular left earlobe lesion. -Neurologic: Acute loss of consciousness on presentation; seizure disorder history. -Psychiatric: Hallucinations/delusions prior to admission per collateral. Past Medical History: -Asthma -Anxiety, depression -Schizophrenia, bipolar disorder -Type 1 diabetes mellitus -Hypertension -Seizure disorder -Prior stroke -Intracranial hemorrhage; subdural hematoma -Vitamin D deficiency -CHIEF MEDIA OFFICER shunt in place Past Surgical History: -Ventriculoperitoneal (CHIEF MEDIA OFFICER) shunt placement (date not provided) Home Medications: -Not provided in transcript. Allergies: -Not provided in transcript. Family History: -Not provided in transcript. Social History: -Alcohol: Heavy use reported by roommate. -Cannabis: Uses marijuana. -Tobacco: Not provided in transcript. -Recent intake: No food for the 3 days prior to admission. Objective: Vital Signs on Arrival: -Temp: 94.3 F (hypothermic) -BP: 108/57 mmHg -Pulse: ~125 bpm -Resp: 29/min -SpO2: 100% on nasal cannula (patient later intubated) Additional data on arrival: -Glucose >600 mg/dL -pH 6.75 -WBC 28 K/L; Hgb 12.8 g/dL; Plt 385 K/L -Na 121 mmol/L; BUN 24 mg/dL; Cr 2.36 mg/dL -Vent/oxygen: subsequently intubated; FiO2 up to 100% at times; often ~6080%; PEEP up to ~10 -Vasopressors: Intermittent norepinephrine 12 mcg/min; initially no pressors until ~10/2 Most Recent Vital Signs: -Not provided in transcript. Admission Weight: -Not provided in transcript. Physical Exam: General: Critically ill male, intubated and sedated on mechanical ventilation. Neck: Supple. No masses. HEENT: PERRL. Normal lids and conjunctiva. Moist mucous membranes. Endotracheal tube in place. Normal appearance of the external aspects of the nose and ears. Oropharynx without lesions, exudates or excessive erythema (limited visualization due to ETT). Heart: Regular rhythm, tachycardic. No lower extremity edema noted. Lungs: Mechanically ventilated. Clear to auscultation bilaterally. No wheezes. No crackles. Abdomen: Soft. Non-tender. Non-distended. No masses or abdominal hernia. Msk: No digital cyanosis. Normal strength and tone in all 4 limbs (limited by sedation). Skin: Warm and dry, no rashes. Left heel deep pressure ulcer. Right anterior thigh red vesicular lesion with minimal exudate and mild odor. Nodular left earlobe lesion. Neuro: Intubated and sedated; unable to assess orientation. No facial droop or slurred speech observed. Extra-ocular movements intact. Sensation not reliably assessable due to sedation. Psych: Unable to assess due to intubation/sedation. Orientation not assessable. Lines: -Not provided in transcript. Diagnostic Studies: Available diagnostic studies were reviewed. Significant relevant results and findings are outlined above and/or below. Pertinent Imaging: -Chest radiography: Reports note prominent cardiac silhouette and interval worsening of pulmonary vascular congestion; yesterdays film shows improvement of consolidations with remaining multifocal patchy opacities in mid and lower lung welsh, consistent with improving diffuse infiltrates/edema. Plan discussed with: Patient NELSY MADRID MD Dec 21, 2024 22:18
[2024-12-22] VITALS (109 sets, daily range): BP systolic 84–163; BP diastolic 47–97; PULSE 81–121; RESP 14–24; TEMP 98.1–99.9; O2SAT 93–100
[2024-12-22 03:49] LABS: Hematocrit 26.7 % (41.0-53.0); Hemoglobin 9.0 g/dL (13.5-17.5); Mean Corpuscular Hemoglobin 29.6 pg (28.0-32.0); Mean Corpuscular Volume 87.5 fL (80.0-100.0); Nucleated Red Blood Cells % 0.1 %
[2024-12-22 04:09] LABS: Alanine Aminotransferase 22 U/L (7-40); Alkaline Phosphatase 231 U/L (46-116); Anion Gap 10 (5-15); BUN/Creatinine Ratio 7.8 (10.0-20.0); Blood Urea Nitrogen < 5 mg/dL (9-23); Calcium 8.6 mg/dL (8.7-10.4); Carbon Dioxide 25 mmol/L (20-31); Chloride 106 mmol/L (98-107); Glucose 119 mg/dL (74-106); Potassium 3.9 mmol/L (3.5-5.1); Sodium 141 mmol/L (136-145); Total Protein 6.3 g/dL (5.7-8.2)
[2024-12-22 04:10] LABS: Albumin 2.9 g/dL (3.2-4.8)
[2024-12-22 04:17] LABS: Bilirubin, Total < 0.2 mg/dL (0.2-1.0)
--- NOTE | 2024-12-22 05:38 | DVH ---
CHEST RADIOGRAPH Indication: Pneumonia Technique: Single frontal view of the chest was obtained COMPARISON: XY CHEST PORTABLE on DOS: 12/21/24, XY CHEST XRAY 1 VIEW on DOS: 12/21/24, XY CHEST XRAY 1 VIEW on DOS: 12/20/24, XY CHEST XRAY 1 VIEW on DOS: 12/20/24, XY CHEST XRAY 1 VIEW on DOS: 12/19/24 FINDINGS: Lines and Tubes: Slight interval retraction of the endotracheal tube such that the tip now projects a pproximately 6.2 cm above the level of the laci. Remaining lines and tubes unchanged. Lungs: Mildly progressive bilateral middle and lower lung zone pulmonary airspace disease with develo ping consolidative features. Small bilateral pleural effusions. No pneumothorax. Cardiomediastinal contours: Cardiomegaly. Bones: Unremarkable IMPRESSION: 1. Slight interval retraction of the endotracheal tube such that the tip now projects approximately 6 .2 cm above the level of the laci. Remaining lines and tubes unchanged. 2. Mildly progressive bilateral middle and lower lung zone pulmonary airspace disease with developing consolidative features. 3. Small bilateral pleural effusions. 4. Cardiomegaly.
[2024-12-22 06:45] LABS: Base Excess -2.0 mmol/L (-2.0-3.0)
--- NOTE | 2024-12-22 12:42 | DVH ---
Date: 12/22/2024 12:10 PM Examination: XY KUB ABDOMEN SINGLE VIEW History: DOBHOFF PLACEMENT Comparison: XY KUB ABDOMEN SINGLE VIEW on DOS: 12/21/24, XY KUB ABDOMEN SINGLE VIEW on DOS: 12/19/24, XY KUB ABDOMEN SINGLE VIEW on DOS: 12/14/24, XY KUB ABDOMEN SINGLE VIEW on DOS: 12/13/24, XY KUB ABDOM EN SINGLE VIEW on DOS: 12/12/24 TECHNIQUE: Frontal views of the abdomen was obtained. FINDINGS: Bowel gas pattern is unremarkable. Weighted tip feeding tube projects over the distal stomach versus proximal duodenum. Moderate stool burden. The lung bases are unremarkable. No acute osseous abnormality identified. IMPRESSION: Weighted tip feeding tube projects over the distal stomach versus proximal duodenum. Moderate stool b urden.
--- NOTE | 2024-12-22 13:49 | DVHPNRES ---
Progress Note Date Seen: Dec 22, 2024 Resident Creating Document: SEAN DE LOS SANTOS RESDIENT Medical Necessity Reason Pt with a Central, PICC or Fol: Yes The following are medically ne: Central Line, Orellana Catheter Subjective Review of Systems This is a 44-year-old male with past medical history of asthma, CVA, intracerebral hemorrhage, subdural hematoma, (status post [employer] shunt, 10 years back), depression, diabetes type 1, hypertension, seizure, bipolar disorder brought to the hospital due to altered mental status. Per patient's roommate, he has not been using his medicine since 1 week, and had developed nausea, vomiting and diarrhea since 3 days, and since 1 day has been altered. Denies fever, loss of consciousness, or any trauma. PMHx: asthma, CVA, intracerebral hemorrhage, subdural hematoma, (status post [employer] shunt, 10 years back), depression, diabetes type 1, hypertension, seizure, bipolar disorder PSHx: [employer] shunt (10 years back), had removed molar to 3 weeks back, had tracheostomy in 2019 (due to intracerebral hemorrhage) Social history: Smokes marijuana and drink heavy alcohol. Lives with friend at home. At baseline mobile, but does not work, on disability Home medication: Quetiapine, sertraline, gabapentin, insulin NPH, levetiracetam, oxcarbazepine, and hydroxyzine, noncompliant with the medicine Patient seen and examined at bedside. Patient is sedated and on mechanical ventilation. Objective vital signs Vital Sign Date Time Temp Pulse Resp B/P (MAP) Pulse Ox O2 Delivery O2 Flow Rate FiO2 12/22/24 13:15 99.9 108 24 135/82 (99) 97 211.8 12/22/24 11:39 65 12/22/24 06:00 Mechanical Ventilator+ Total Intake and Output 12/21/24 12/21/24 12/22/24 15:00 23:00 07:00 Intake Total 1045.151 ml 1364.345 ml 1408.503 ml Output Total 2150 ml 1000 ml Balance 1045.151 ml -785.655 ml 408.503 ml medications Current Medications Medications Dose Ordered Sig/Misa Route Start Time Stop Time Status Last Admin Dose Admin Midazolam HCl 50 ml @ 1 mls/hr Q24H IV 12/01/24 12:45 12/22/24 11:21 15 MLS/HR Dextrose 50 ml UD PRN IV 12/01/24 13:30 Cancel Insulin Glargine 15 units DAILY SC 12/02/24 10:00 Cancel Dextrose 50 ml UD PRN IV 12/01/24 16:45 Cancel Acetaminophen 650 mg Q6HP PRN PO 12/01/24 16:45 12/18/24 07:01 650 MG Famotidine 20 mg DAILY IV 12/02/24 10:00 12/22/24 10:32 20 MG Ipratropium Andrews 0.5 mg Q4HR NEB 12/01/24 18:00 12/22/24 09:59 0.5 MG Albuterol 2.5 mg Q4HPRN PRN NEB 12/01/24 18:00 12/22/24 09:59 2.5 MG Diagnostic Test (Pha) 1 strip Q6HR 12/02/24 18:00 12/22/24 12:03 1 STRIP Insulin Human Regular Q6HR SC 12/02/24 18:00 12/22/24 12:58 9 UNITS Dextrose 50 ml UD PRN IV 12/02/24 15:45 Lorazepam 1 mg Q5MINP PRN IV 12/03/24 01:45 12/03/24 03:43 1 MG Enteral Nutritional Formula 1,000 ml 40ML/HR GT 12/03/24 09:30 12/17/24 23:41 1,000 ML Levetiracetam 100 ml @ 400 mls/hr BID IV 12/03/24 10:00 UNV Lactulose 30 ml Q6HR GT 12/05/24 08:45 12/21/24 05:33 30 ML Carbamazepine 400 mg BID GT 12/05/24 22:00 12/21/24 21:34 400 MG Sodium Chloride 10 ml QSHIFT@10,22 IV 12/07/24 22:00 12/22/24 10:29 10 ML Multi-Ingredient Ointment 1 applic DAILY TOP 12/09/24 10:00 12/22/24 10:29 1 APPLIC Metoclopramide HCl 10 mg Q8HR IV 12/17/24 16:45 12/21/24 05:33 10 MG Levetiracetam 100 ml @ 400 mls/hr BID IV 12/17/24 22:00 12/22/24 10:19 400 MLS/HR Thiamine HCl 100 mg DAILY PO 12/19/24 10:00 12/21/24 10:01 100 MG Propofol 100 ml @ 2.685 mls/ hr Q24H IV 12/18/24 20:45 12/21/24 20:39 2.685 MLS/HR Fentanyl Citrate 250 ml @ 2.5 mls/hr Q24H IV 12/20/24 02:45 12/22/24 07:54 35 MLS/HR Trimethoprim/ Sulfamethoxazole 20 ml/Dextrose 520 ml @ 346 mls/hr Q8H IV 12/21/24 17:30 12/22/24 10:15 346 MLS/HR Valproate Sodium 1000 mg/Sodium Chloride 110 ml @ 110 mls/hr BID IV 12/21/24 22:00 12/22/24 10:28 110 MLS/HR Meropenem 50 ml @ 17 mls/hr Q6H IV 12/21/24 14:15 12/22/24 08:44 17 MLS/HR Ketamine HCl 500 mg/Sodium Chloride 500 ml @ 5.382 mls/ hr Q24H IV 12/21/24 15:15 12/22/24 10:46 43.056 MLS/HR Norepinephrine Bitartrate 250 ml @ 3.75 mls/hr Q24H IV 12/21/24 18:15 Furosemide 40 mg DAILY IV 12/23/24 10:00 UNV Trimethoprim/ Sulfamethoxazole 300 ml @ 0 mls/hr PER PHARMACY IV 12/22/24 18:00 UNV Examination General: RASS -5, afebrile, mucosae are moist Cardiovascular: Normal S1 and S2. No murmurs, gallops or rubs Respiratory: Left-sided mild crackles GI: Soft, nontender, no organomegaly, normal bowel sounds : Orellana catheter n place, clear yellow urine in collection bag MSK/skin: Mobilization of limbs cannot be evaluated. Skin is dry and warm. IV accesses: A small 2 x 2 cm scab noticed at the heel of left foot. Neurological: Orientation cannot be assessed. No apparent motor no sensitive deficits. Pupils are isocoric and reactive laboratory and microbiology Laboratory Tests 12/22/24 03:05 Test 12/22/24 03:05 Range/Units Serum Glucose 119 H 74-106 mg/dL Microbiology Date/Time Source Procedure Growth Status 12/19/24 16:35 Voided Urine Urine Culture - Final Complete 12/19/24 07:12 Blood Blood Culture - Preliminary NO GROWTH AFTER 72 HOURS OF INCUBATION. Resulted 12/18/24 13:00 Thigh Right Gram Stain - Final Resulted 12/18/24 13:00 Thigh Right Wound Culture - Preliminary Resulted 12/01/24 00:00 Sputum Endotracheal Wash Gram Stain - Final Complete 12/01/24 00:00 Respiratory Culture - Final Klebsiella pneumoniae Complete Labs and/or images reviewed: Labs reviewed by me, Image(s) reviewed by me Problem List/Assessment/Plan Problem List/Assessment/Plan This is a 44-year-old male with past medical history of CVA, subdural hematoma, (status post [employer] shunt), depression, diabetes type 1, and bipolar disorder brought to the hospital due to nausea, vomiting, diarrhea and altered mental status. Had admitted with primary diagnosis of DKA/HHS. And had admitted and intubated on 12/01. NEURO: Acute metabolic encephalopathy, likely due to DKA/HHS/sepsis History of intracerebral hemorrhage, status post [employer] shunt Possible alcohol withdrawal History of epilepsy Bipolar disorder/depression * Head CT scan 12/01, no new intracranial abnormalities * RASS score -4 * Discontinue quetiapine and gabapentin * Continue home meds: Keppra, oxygen carbamazepine, valproic acid * Plan: Versed, fentanyl , propofol, Precedex, Ketamine CARDIOVASCULAR: Sinus tachycardia RESPIRATORY: Acute hypoxic respiratory failure, likely due to pneumonia Pneumonia, due to Klebsiella pneumoniae Aspiration pneumonia * Chest x-ray shows bilateral haziness, with prominent bronchovascular marking * MV setting: VC mode, TV 400, RR 20, FiO2 50%, peep 8 * Plan: Mechanical ventilation, breathing treatment and IV antibiotic. * Surgery recommended PEEP around 5 and FiO2 around 35. As current FiO2 50 and PEEP 8. Postpone surgery for today. We will schedule when patient reliable on vent setting. 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 * Blood and urine culture 12/01, Shows no growth * Discontinued Rocephin (12/01-12/06), azithromycin (12/01-12/06) and clindamycin (12/04-12/06) * Discontinue vancomycin (12/06 given up to 12/11), and cefepime (12/07 given up to 12/11) * Discontinue linezolid (12/11 given until 12/17), Meropenem (12/11 given up to 12/18) * Plan: Continue Bactrim (12/17) HEMATOLOGY: Mild anemia, normocytic normochromic ENDOCRINE: Diabetes type 1 DKA/HHS * Plan: ISS METABOLIC: Hypokalemia Hyponatremia Hypomagnesemia Hypophosphatemia Hyperphosphatemia MSK/SKIN: Skin scab, on the heel of left leg New skin eruptions (xerosis/seborrheic dermatitis, possibly due to ICU related skin dryness), possible drug eruption or infection related * New erythematous/scaly rashes noted on checks, face and neck, no parts of body and mucosal involvement, patient is sedated and can not report any symptoms * Plan: Eucerin cream, monitoring eosinophils DIET: Tube feeding, Glucerna DVT prophylax: Lovenox GI prophylaxis: Protonix Bowel regimen: Lactulose LINES/DEVICES ETT: Intubated on 12/01 IV access: PICC line placed on 11/07 Drips: Fentanyl, Versed and propofol Orellana catheter: Placed on 12/01. Disposition: Continue ICU status Family: Patients friends (Durga and Tristen) and sister unable to reach after repeated attempts over the phone. Critical care time: Spent > 83 min, spent in direct critical care, including evaluation, management, review of labs/imaging, and multidisciplinary/family discussions, (excluding any procedures). Case discussed with Dr. Porter. Plan discussed with: Other My Orders My Orders Orders - SEAN DE LOS SANTOS Procedure Category Date Status Time Meropenem 1gm Ivpb PHA 12/21/24 In Process (Merrem 1gm/50ml) 14:15 Sodium Chl 0.9% PHA 12/21/24 In Process (So... W/Ketamine 15:15 Chest Portable XY 12/21/24 Resulted 15:08 Kub Abdomen Single XY 12/22/24 Resulted View 12:08 Dietary Evaluation Review Comments: 1) Initiate thiamin, folic acid, and MVI supplementation d/t recent ETOH abuse 2) If patient remains NPO > 7 days, consider EN/TPN to meet at least 75% of estimated daily needs 3) If GI is preferred, initiate Glucerna 1.2 @ 60 mL/hr goal rate as tolerated. Flush with 150 mL Q6H. TF regimen will provide 1728 kcals, 86g Pro, and 1759 mL free H2O (including flushes) per 24 hrs. Goal rate will meet ~87% estimated daily energy needs and ~72% estimated daily protein needs 4) Advance to 60g CCHO cardiac diet when medically feasible, pending ST approval 5) Collect HbA1c 6) Refer to outpatient RD/[facility] for diabetes education 7) Follow-up with cardiology, pulmonology, and psychiatry 8) Follow-up with social services aide r/t ETOH abuse 9) Continue to monitor I&O, labs, and skin integrity Expected Outcomes/Goals: 1) patient to receive nutritional support within 7 days of NPO status 2) labs and GI symptoms to improve 3) diet to advance 4) follow-up in 2-3 days SEAN DE LOS SANTOS Dec 22, 2024 13:49
[2024-12-22] MEDS ORDERED: SULFAMETH TRIMETH IV SCH (15:00)
[2024-12-22] MEDS ORDERED: D5W 5% IV SCH (15:00)
[2024-12-22] MEDS: FUROSEMIDE 40 MG/4 ML VIAL IV ONE (15:11)
[2024-12-22] MEDS ORDERED: BACTRIM IV SCH (18:00)
[2024-12-22] MEDS ORDERED: [UNRECOGNIZED DRUG - OTHER] IV SCH (18:00)
[2024-12-22] MEDS: D5W 5% IV SCH (18:18)
[2024-12-22] MEDS: SULFAMETH TRIMETH IV SCH (18:18)
[2024-12-23] VITALS (107 sets, daily range): BP systolic 82–202; BP diastolic 46–121; PULSE 72–142; RESP 12–39; TEMP 97.5–101.7; O2SAT 87–100
[2024-12-23 04:28] LABS: Nucleated Red Blood Cells % 0.0 %
[2024-12-23 04:33] LABS: Hematocrit 26.5 % (41.0-53.0); Hemoglobin 8.9 g/dL (13.5-17.5); Mean Corpuscular Hemoglobin 29.4 pg (28.0-32.0); Mean Corpuscular Volume 87.1 fL (80.0-100.0)
[2024-12-23 04:41] LABS: Alanine Aminotransferase 19 U/L (7-40); Anion Gap 10 (5-15); Carbon Dioxide 27 mmol/L (20-31); Chloride 103 mmol/L (98-107); Sodium 140 mmol/L (136-145); Total Protein 6.5 g/dL (5.7-8.2)
[2024-12-23 04:55] LABS: Albumin 3.0 g/dL (3.2-4.8); Alkaline Phosphatase 218 U/L (46-116); BUN/Creatinine Ratio 6.5 (10.0-20.0); Bilirubin, Total < 0.2 mg/dL (0.2-1.0); Blood Urea Nitrogen < 5 mg/dL (9-23); Calcium 8.5 mg/dL (8.7-10.4); Glucose 158 mg/dL (74-106); Potassium 3.4 mmol/L (3.5-5.1)
[2024-12-23] MEDS: POTASSIUM CHL 20MEQ/100ML 100 ML IV SCH (05:33)
--- NOTE | 2024-12-23 05:56 | DVH ---
CHEST RADIOGRAPH Indication: Intubated Technique: Single frontal view of the chest was obtained COMPARISON: XY CHEST XRAY 1 VIEW on DOS: 12/22/24, XY CHEST PORTABLE on DOS: 12/21/24, XY CHEST XRAY 1 VIEW on DOS: 12/21/24, XY CHEST XRAY 1 VIEW on DOS: 12/20/24, XY CHEST XRAY 1 VIEW on DOS: 12/20/24 FINDINGS: Lines and Tubes: Unchanged. Lungs: Mild interval improvement in patchy multifocal bilateral pulmonary airspace disease with clear ing of mild focal consolidative areas within the lung bases. Persistent small left pleural effusion. No pneumothorax. Cardiomediastinal contours: Unremarkable Bones: Unremarkable IMPRESSION: 1. Mild interval improvement in patchy multifocal bilateral pulmonary airspace disease with clearing of mild focal consolidative areas within the lung bases. 2. Persistent small left pleural effusion. 3. Lines and tubes unchanged.
[2024-12-23 08:28] LABS: Base Excess 2.6 mmol/L (-2.0-3.0)
[2024-12-23] MEDS ORDERED: FUROSEMIDE 40 MG/4 ML VIAL IV SCH (10:00)
[2024-12-23] MEDS: FUROSEMIDE 40 MG/4 ML VIAL IV SCH (10:49)
--- NOTE | 2024-12-23 13:38 | DVH ---
Exam: XY KUB ABDOMEN SINGLE VIEW Indication: dobhoff tube postition Comparison: XY KUB ABDOMEN SINGLE VIEW on DOS: 12/22/24 Technique: 1 radiographic view of the abdomen. Findings: There is a Dobbhoff tube in place with the tip projecting over the gastric antrum. Scattered gas thro ughout nondilated small and large bowel. Moderate retained stool in the colon. There is tubing proje cting over the right abdomen extending into the left pelvis. Osseous structures are grossly intact. Impression: 1. Dobbhoff tube placement with the tip projecting over the gastric antrum.
--- NOTE | 2024-12-23 15:06 | DVHNC2 ---
Procedure - Procedure- Bronchoscopy and bronchial washings Indication- Secretions Procedure in detail Consent was obtained and timeout performed per protocol. The patient was placed on 100% FiO2. Olympus bronchoscope was used and passed through the endotracheal tube, tracheobronchial tree was examined. There were nasty secretions in the airways bilaterally that were loosened up with copious amount of normal saline and thoroughly suctioned into a separate specimen container. There were no endobronchial lesions however, mucosa appeared inflamed and easily friable. After the procedure, the scope was removed. Patient tolerated the procedure well. BRANNON CARR MD Dec 23, 2024 15:06
--- NOTE | 2024-12-23 15:32 | DVHPNRES ---
Progress Note Date Seen: Dec 23, 2024 Resident Creating Document: SEAN DE LOS SANTOS RESDIYANG Medical Necessity Reason Pt with a Central, PICC or Fol: Yes The following are medically ne: Central Line, Orellana Catheter Medical Necessity Reason This is a 44-year-old male with past medical history of asthma, CVA, intracerebral hemorrhage, subdural hematoma, (status post [employer]ACE AND [employer]IL[employer]ORER shunt, 10 years back), depression, diabetes type 1, hypertension, seizure, bipolar disorder brought to the hospital due to altered mental status. Per patient's roommate, he has not been using his medicine since 1 week, and had developed nausea, vomiting and diarrhea since 3 days, and since 1 day has been altered. Denies fever, loss of consciousness, or any trauma. PMHx: asthma, CVA, intracerebral hemorrhage, subdural hematoma, (status post [employer] AND TEXTIL[employer]ER shunt, 10 years back), depression, diabetes type 1, hypertension, seizure, bipolar disorder PSHx: L[employer] AND [employer]IL[employer]ER shunt (10 years back), had removed molar to 3 weeks back, had tracheostomy in 2019 (due to intracerebral hemorrhage) Social history: Smokes marijuana and drink heavy alcohol. Lives with friend at home. At baseline mobile, but does not work, on disability Home medication: Quetiapine, sertraline, gabapentin, insulin NPH, levetiracetam, oxcarbazepine, and hydroxyzine, noncompliant with the medicine Patient seen and examined at bedside. Patient is sedated and on mechanical ventilation. Subjective Review of Systems This is a 44-year-old male with past medical history of asthma, CVA, intracerebral hemorrhage, subdural hematoma, (status post [employer]IL[employer]ER shunt, 10 years back), depression, diabetes type 1, hypertension, seizure, bipolar disorder brought to the hospital due to altered mental status. Per patient's roommate, he has not been using his medicine since 1 week, and had developed nausea, vomiting and diarrhea since 3 days, and since 1 day has been altered. Denies fever, loss of consciousness, or any trauma. PMHx: asthma, CVA, intracerebral hemorrhage, subdural hematoma, (status post [employer]IL[employer]ER shunt, 10 years back), depression, diabetes type 1, hypertension, seizure, bipolar disorder PSHx: L[employer] AND TEXTIL[employer] REST[employer]ER shunt (10 years back), had removed molar to 3 weeks back, had tracheostomy in 2019 (due to intracerebral hemorrhage) Social history: Smokes marijuana and drink heavy alcohol. Lives with friend at home. At baseline mobile, but does not work, on disability Home medication: Quetiapine, sertraline, gabapentin, insulin NPH, levetiracetam, oxcarbazepine, and hydroxyzine, noncompliant with the medicine Patient seen and examined at bedside. Patient is sedated and on mechanical ventilation. Objective vital signs Vital Sign Date Time Temp Pulse Resp B/P (MAP) Pulse Ox O2 Delivery O2 Flow Rate FiO2 12/23/24 14:45 99.3 88 24 117/76 (90) 96 210.7 12/23/24 14:08 75 12/23/24 14:00 Mechanical Ventilator+ Total Intake and Output 12/22/24 12/22/24 12/23/24 14:59 22:59 06:59 Intake Total 1585.052 ml 1153.802 ml 1385.677 ml Output Total 4500 ml 2600 ml Balance 1585.052 ml -3346.198 ml -1214.323 ml medications Current Medications Medications Dose Ordered Sig/Misa Route Start Time Stop Time Status Last Admin Dose Admin Midazolam HCl 50 ml @ 1 mls/hr Q24H IV 12/01/24 12:45 12/23/24 14:20 15 MLS/HR Dextrose 50 ml UD PRN IV 12/01/24 13:30 Cancel Insulin Glargine 15 units DAILY SC 12/02/24 10:00 Cancel Dextrose 50 ml UD PRN IV 12/01/24 16:45 Cancel Acetaminophen 650 mg Q6HP PRN PO 12/01/24 16:45 12/18/24 07:01 650 MG Famotidine 20 mg DAILY IV 12/02/24 10:00 12/23/24 10:49 20 MG Ipratropium [place] 0.5 mg Q4HR NEB 12/01/24 18:00 12/23/24 14:08 0.5 MG Albuterol 2.5 mg Q4HPRN PRN NEB 12/01/24 18:00 12/22/24 14:23 2.5 MG Diagnostic Test (Pha) 1 strip Q6HR 12/02/24 18:00 12/23/24 12:18 1 STRIP Insulin Human Regular Q6HR SC 12/02/24 18:00 12/23/24 12:32 6 UNITS Dextrose 50 ml UD PRN IV 12/02/24 15:45 Lorazepam 1 mg Q5MINP PRN IV 12/03/24 01:45 12/03/24 03:43 1 MG Enteral Nutritional Formula 1,000 ml 40ML/HR GT 12/03/24 09:30 12/17/24 23:41 1,000 ML Levetiracetam 100 ml @ 400 mls/hr BID IV 12/03/24 10:00 UNV Lactulose 30 ml Q6HR GT 12/05/24 08:45 12/23/24 12:18 30 ML Carbamazepine 400 mg BID GT 12/05/24 22:00 12/23/24 10:48 400 MG Sodium Chloride 10 ml QSHIFT@,22 IV 12/07/24 22:00 12/23/24 10:50 10 ML Multi-Ingredient Ointment 1 applic DAILY TOP 12/09/24 10:00 12/23/24 10:49 1 APPLIC Metoclopramide HCl 10 mg Q8HR IV 12/17/24 16:45 12/23/24 14:22 10 MG Levetiracetam 100 ml @ 400 mls/hr BID IV 12/17/24 22:00 12/23/24 10:49 400 MLS/HR Thiamine HCl 100 mg DAILY PO 12/19/24 10:00 12/23/24 10:49 100 MG Propofol 100 ml @ 2.685 mls/ hr Q24H IV 12/18/24 20:45 12/21/24 20:39 2.685 MLS/HR Fentanyl Citrate 250 ml @ 2.5 mls/hr Q24H IV 12/20/24 02:45 12/23/24 11:14 35 MLS/HR Valproate Sodium 1000 mg/Sodium Chloride 110 ml @ 110 mls/hr BID IV 12/21/24 22:00 12/23/24 10:48 110 MLS/HR Meropenem 50 ml @ 17 mls/hr Q6H IV 12/21/24 14:15 12/23/24 14:45 17 MLS/HR Ketamine HCl 500 mg/Sodium Chloride 500 ml @ 5.382 mls/ hr Q24H IV 12/21/24 15:15 12/23/24 10:00 43.056 MLS/HR Norepinephrine Bitartrate 250 ml @ 3.75 mls/hr Q24H IV 12/21/24 18:15 12/23/24 14:20 3.75 MLS/HR Trimethoprim/ Sulfamethoxazole 300 ml @ 0 mls/hr PER PHARMACY IV 12/22/24 18:00 Trimethoprim/ Sulfamethoxazole 20 ml/Dextrose 320 ml @ 212.939 mls/hr Q8H IV 12/22/24 17:30 12/23/24 09:28 212.939 MLS/HR Furosemide 20 mg DAILY IV 12/23/24 10:00 12/23/24 10:49 20 MG Examination General: RASS -5, afebrile, mucosae are moist Cardiovascular: Normal S1 and S2. No murmurs, gallops or rubs Respiratory: Left-sided mild crackles GI: Soft, nontender, no organomegaly, normal bowel sounds : Orellana catheter n place, clear yellow urine in collection bag MSK/skin: Mobilization of limbs cannot be evaluated. Skin is dry and warm. IV accesses: A small 2 x 2 cm scab noticed at the heel of left foot. Neurological: Orientation cannot be assessed. No apparent motor no sensitive deficits. Pupils are isocoric and reactive laboratory and microbiology Laboratory Tests 12/23/24 03:45 Test 12/23/24 03:45 Range/Units Serum Glucose 158 H 74-106 mg/dL Microbiology Date/Time Source Procedure Growth Status 12/19/24 16:35 Voided Urine Urine Culture - Final Complete 12/19/24 07:12 Blood Blood Culture - Preliminary NO GROWTH AFTER 72 HOURS OF INCUBATION. Resulted 12/18/24 13:00 Thigh Right Gram Stain - Final Resulted 12/18/24 13:00 Thigh Right Wound Culture - Preliminary Resulted 12/01/24 00:00 Sputum Endotracheal Wash Gram Stain - Final Complete 12/01/24 00:00 Respiratory Culture - Final Klebsiella pneumoniae Complete Labs and/or images reviewed: Labs reviewed by me, Image(s) reviewed by me Problem List/Assessment/Plan Problem List/Assessment/Plan This is a 44-year-old male with past medical history of CVA, subdural hematoma, (status post [employer]ER shunt), depression, diabetes type 1, and bipolar disorder brought to the hospital due to nausea, vomiting, diarrhea and altered mental status. Had admitted with primary diagnosis of DKA/HHS. And had admitted and intubated on 12/01. NEURO: Acute metabolic encephalopathy, likely due to DKA/HHS/sepsis History of intracerebral hemorrhage, status post [employer] AND [employer]ER shunt Possible alcohol withdrawal History of epilepsy Bipolar disorder/depression * Head CT scan 12/01, no new intracranial abnormalities * RASS score -4 * Discontinue quetiapine and gabapentin * Continue home meds: Keppra, oxygen carbamazepine, valproic acid * Versed, fentanyl , propofol, Precedex, Ketamine CARDIOVASCULAR: Sinus tachycardia RESPIRATORY: Acute hypoxic respiratory failure, likely due to pneumonia Pneumonia, due to Klebsiella pneumoniae Aspiration pneumonia * Chest x-ray shows bilateral haziness, with prominent bronchovascular marking * MV setting: VC mode, TV 400, RR 20, FiO2 50%, peep 8 * Mechanical ventilation, breathing treatment and IV antibiotic. * Surgery recommended PEEP around 5 and FiO2 around 35. As current FiO2 50 and PEEP 8. Postpone surgery for today. We will schedule when patient reliable on vent setting. 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 * Blood and urine culture 12/01, Shows no growth * Discontinued Rocephin (12/01-12/06), azithromycin (12/01-12/06) and clindamycin (12/04-12/06) * Discontinue vancomycin (12/06 given up to 12/11), and cefepime (12/07 given up to 12/11) * Discontinue linezolid (12/11 given until 12/17), Meropenem (12/11 given up to 12/18) * Continue Bactrim (12/17) HEMATOLOGY: Mild anemia, normocytic normochromic ENDOCRINE: Diabetes type 1 DKA/HHS * ISS METABOLIC: Hypokalemia Hyponatremia Hypomagnesemia Hypophosphatemia Hyperphosphatemia MSK/SKIN: Skin scab, on the heel of left leg New skin eruptions (xerosis/seborrheic dermatitis, possibly due to ICU related skin dryness), possible drug eruption or infection related * New erythematous/scaly rashes noted on checks, face and neck, no parts of body and mucosal involvement, patient is sedated and can not report any symptoms * Eucerin cream, monitoring eosinophils DIET: Tube feeding, Glucerna DVT prophylax: Lovenox GI prophylaxis: Protonix Bowel regimen: Lactulose LINES/DEVICES ETT: Intubated on 12/01 IV access: PICC line placed on 11/07 Drips: Fentanyl, Versed and propofol Orellana catheter: Placed on 12/01. Disposition: Continue ICU status Family: Patients friends (Durga and Tristen) and sister unable to reach after repeated attempts over the phone. Critical care time: Spent > 83 min, spent in direct critical care, including evaluation, management, review of labs/imaging, and multidisciplinary/family discussions, (excluding any procedures). Case discussed with Dr. Porter. Plan discussed with: Other (RN) My Orders My Orders Orders - SEAN DE LOS SANTOS RESDIENT Procedure Category Date Status Time Furosemide Injection PHA 12/23/24 In Process (Lasix Injection) 10:00 Respiratory Misc. RT 12/23/24 Transmitted Order 09:28 Kub Abdomen Single XY 12/23/24 Resulted View 12:13 Dietary Evaluation Review Comments: 1) Initiate thiamin, folic acid, and MVI supplementation d/t recent ETOH abuse 2) If patient remains NPO > 7 days, consider EN/TPN to meet at least 75% of estimated daily needs 3) If GI is preferred, initiate Glucerna 1.2 @ 60 mL/hr goal rate as tolerated. Flush with 150 mL Q6H. TF regimen will provide 1728 kcals, 86g Pro, and 1759 mL free H2O (including flushes) per 24 hrs. Goal rate will meet ~87% estimated daily energy needs and ~72% estimated daily protein needs 4) Advance to 60g CCHO cardiac diet when medically feasible, pending ST approval 5) Collect HbA1c 6) Refer to outpatient RD/CD[facility] for diabetes education 7) Follow-up with cardiology, pulmonology, and psychiatry 8) Follow-up with director of social media marketing r/t ETOH abuse 9) Continue to monitor I&O, labs, and skin integrity Expected Outcomes/Goals: 1) patient to receive nutritional support within 7 days of NPO status 2) labs and GI symptoms to improve 3) diet to advance 4) follow-up in 2-3 days SEAN DE LOS SANTOS Dec 23, 2024 15:32
[2024-12-24] VITALS (110 sets, daily range): BP systolic 81–178; BP diastolic 42–111; PULSE 86–149; RESP 12–34; TEMP 97.7–101.1; O2SAT 90–100
[2024-12-24] MEDS: KETOROLAC TROMETH 30 MG/ML 1ML VIAL IV ONE (04:29)
[2024-12-24 04:56] LABS: Hematocrit 31.0 % (41.0-53.0); Hemoglobin 9.9 g/dL (13.5-17.5); Mean Corpuscular Hemoglobin 28.1 pg (28.0-32.0); Mean Corpuscular Volume 87.5 fL (80.0-100.0)
[2024-12-24 05:03] LABS: Alanine Aminotransferase 21 U/L (7-40); Anion Gap 14 (5-15); BUN/Creatinine Ratio 8.8 (10.0-20.0); Calcium 8.7 mg/dL (8.7-10.4); Carbon Dioxide 23 mmol/L (20-31); Potassium 4.9 mmol/L (3.5-5.1); Total Protein 6.6 g/dL (5.7-8.2)
[2024-12-24 05:25] LABS: Albumin 3.1 g/dL (3.2-4.8); Alkaline Phosphatase 256 U/L (46-116); Bilirubin, Total 0.2 mg/dL (0.2-1.0); Blood Urea Nitrogen 7 mg/dL (9-23); Chloride 98 mmol/L (98-107); Glucose 313 mg/dL (74-106); Sodium 135 mmol/L (136-145)
--- NOTE | 2024-12-24 05:30 | DVH ---
CHEST RADIOGRAPH Indication: intubated Technique: Single frontal view of the chest was obtained Comparison: XY CHEST XRAY 1 VIEW on DOS: 12/23/24, XY CHEST XRAY 1 VIEW on DOS: 12/22/24, XY CHEST PO RTABLE on DOS: 12/21/24 IMPRESSION: Low lung volumes. Heart is prominent size. Support lines and tubes appear unchanged in satisfactory position. There has been interval worsening of moderate pulmonary vascular congestion. Possible smal l left pleural effusion. No pneumothorax.
[2024-12-24] MEDS: LORazepam 2MG/ML-1ML VIAL ONE (06:23)
[2024-12-24] MEDS: FUROSEMIDE 40 MG/4 ML VIAL ONE (06:24)
[2024-12-24] MEDS: FUROSEMIDE 40 MG/4 ML VIAL IV ONE (06:30)
[2024-12-24] MEDS: LORazepam 2MG/ML-1ML VIAL IV ONE (06:30)
[2024-12-24 07:10] LABS: Total Cells Counted 100.0 (100)
[2024-12-24 08:51] LABS: Base Excess 1.3 mmol/L (-2.0-3.0)
[2024-12-24 10:17] LABS: Nucleated Red Blood Cells % 0.0 %
--- NOTE | 2024-12-24 10:17 | DVHPNRES ---
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 Per patient's roommate, he has not been using his medicine since 1 week, and had developed nausea, vomiting and diarrhea since 3 days, and since 1 day has been altered. Denies fever, loss of consciousness, or any trauma. 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 Lives with friend at home. At baseline mobile, but does not work, on disability Home medication: Quetiapine, sertraline, gabapentin, insulin NPH, levetiracetam, oxcarbazepine, and hydroxyzine, noncompliant with the medicine Patient seen and evaluated in bedside today. Currently on mechanical ventilation. Bronchoscopy done on 12/23/2024, report pending. WBC trending up 8.4 to 32.9. Repeat CBC showed leukocytosis. ID recommendation appreciated. Objective vital signs Vital Sign Date Time Temp Pulse Resp B/P (MAP) Pulse Ox O2 Delivery O2 Flow Rate FiO2 12/24/24 09:45 110 24 116/77 (90) 99 60 12/24/24 08:00 99.0 210.2 12/24/24 06:00 Mechanical Ventilator+ Total Intake and Output 12/23/24 12/23/24 12/24/24 15:00 23:00 07:00 Intake Total 1312.425 ml 1772.416 ml 1769.728 ml Output Total 1450 ml 3200 ml Balance 1312.425 ml 322.416 ml -1430.272 ml medications Current Medications Medications Dose Ordered Sig/Misa Route Start Time Stop Time Status Last Admin Dose Admin Midazolam HCl 50 ml @ 1 mls/hr Q24H IV 12/01/24 12:45 12/24/24 07:44 15 MLS/HR Dextrose 50 ml UD PRN IV 12/01/24 13:30 Cancel Insulin Glargine 15 units DAILY SC 12/02/24 10:00 Cancel Dextrose 50 ml UD PRN IV 12/01/24 16:45 Cancel Acetaminophen 650 mg Q6HP PRN PO 12/01/24 16:45 12/23/24 18:47 650 MG Famotidine 20 mg DAILY IV 12/02/24 10:00 12/23/24 10:49 20 MG Ipratropium [place] 0.5 mg Q4HR NEB 12/01/24 18:00 12/24/24 09:44 0.5 MG Albuterol 2.5 mg Q4HPRN PRN NEB 12/01/24 18:00 12/24/24 09:44 2.5 MG Diagnostic Test (Pha) 1 strip Q6HR 12/02/24 18:00 12/24/24 06:05 1 STRIP Insulin Human Regular Q6HR SC 12/02/24 18:00 12/24/24 06:05 9 UNITS Dextrose 50 ml UD PRN IV 12/02/24 15:45 Lorazepam 1 mg Q5MINP PRN IV 12/03/24 01:45 12/03/24 03:43 1 MG Enteral Nutritional Formula 1,000 ml 40ML/HR GT 12/03/24 09:30 12/17/24 23:41 1,000 ML Levetiracetam 100 ml @ 400 mls/hr BID IV 12/03/24 10:00 UNV Lactulose 30 ml Q6HR GT 12/05/24 08:45 12/24/24 05:38 30 ML Carbamazepine 400 mg BID GT 12/05/24 22:00 12/23/24 21:44 400 MG Sodium Chloride 10 ml QSHIFT@10,22 IV 12/07/24 22:00 12/23/24 22:00 10 ML Multi-Ingredient Ointment 1 applic DAILY TOP 12/09/24 10:00 12/23/24 10:49 1 APPLIC Metoclopramide HCl 10 mg Q8HR IV 12/17/24 16:45 12/24/24 05:38 10 MG Levetiracetam 100 ml @ 400 mls/hr BID IV 12/17/24 22:00 12/23/24 21:43 400 MLS/HR Thiamine HCl 100 mg DAILY PO 12/19/24 10:00 12/23/24 10:49 100 MG Propofol 100 ml @ 2.685 mls/ hr Q24H IV 12/18/24 20:45 12/24/24 08:29 26.85 MLS/HR Fentanyl Citrate 250 ml @ 2.5 mls/hr Q24H IV 12/20/24 02:45 12/24/24 09:01 35 MLS/HR Valproate Sodium 1000 mg/Sodium Chloride 110 ml @ 110 mls/hr BID IV 12/21/24 22:00 12/23/24 22:58 110 MLS/HR Ketamine HCl 500 mg/Sodium Chloride 500 ml @ 5.382 mls/ hr Q24H IV 12/21/24 15:15 12/24/24 06:55 61.893 MLS/HR Norepinephrine Bitartrate 250 ml @ 3.75 mls/hr Q24H IV 12/21/24 18:15 12/23/24 14:20 3.75 MLS/HR Trimethoprim/ Sulfamethoxazole 300 ml @ 0 mls/hr PER PHARMACY IV 12/22/24 18:00 Trimethoprim/ Sulfamethoxazole 20 ml/Dextrose 320 ml @ 212.939 mls/hr Q8H IV 12/22/24 17:30 12/24/24 08:30 212.939 MLS/HR Furosemide 20 mg DAILY IV 12/23/24 10:00 12/23/24 10:49 20 MG Cefiderocol 2 gm/ Sodium Chloride 100 ml @ 33.333 mls/ hr Q6H IV 12/24/24 10:00 Examination General: RASS -4, afebrile, mucosae are moist, on ventilator Cardiovascular: Normal S1 and S2. No murmurs, gallops or rubs Respiratory: Left-sided mild crackles GI: Soft, nontender, no organomegaly, normal bowel sounds : Orellana catheter n place, clear yellow urine in collection bag MSK/skin: Mobilization of limbs cannot be evaluated. Skin is dry and warm. IV accesses: A small 2 x 2 cm scab noticed at the heel of left foot. Neurological: Orientation cannot be assessed. No apparent motor no sensitive deficits. Pupils are isocoric and reactive laboratory and microbiology Laboratory Tests 12/24/24 04:09 Test 12/24/24 04:09 Range/Units Serum Glucose 313 #H 74-106 mg/dL Microbiology Date/Time Source Procedure Growth Status 12/19/24 16:35 Voided Urine Urine Culture - Final Complete 12/19/24 07:12 Blood Blood Culture - Final NO GROWTH AFTER 5 DAYS OF INCUBATION. 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 Had admitted with primary diagnosis of DKA/HHS. And had admitted and intubated on 12/01. NEURO: Acute metabolic encephalopathy, likely due to DKA/HHS/sepsis History of intracerebral hemorrhage, status post COILER OPERATOR shunt Possible alcohol withdrawal History of epilepsy Bipolar disorder/depression * Head CT scan 12/01, no new intracranial abnormalities * RASS score -4 * Discontinue quetiapine and gabapentin * Continue home meds: Keppra, oxygen carbamazepine, valproic acid * Versed, fentanyl , propofol, Precedex, Ketamine CARDIOVASCULAR: Sinus tachycardia RESPIRATORY: Acute hypoxic respiratory failure, likely due to pneumonia Pneumonia, due to Klebsiella pneumoniae Aspiration pneumonia * Chest x-ray shows bilateral haziness, with prominent bronchovascular marking * MV setting: VC mode, TV 545, RR 18, FiO2 45%, peep 10 * Mechanical ventilation, breathing treatment and IV antibiotic. * Surgery recommended PEEP around 5 and FiO2 around 35. As current FiO2 60 and PEEP 10. We will schedule when patient reliable on vent setting. GENITOURINARY/FLUID: REYNALDO, likely VMN, resolved * Lasix 20mg daily GASTROINTESTINAL/NUTRITION: Alcohol use disorder Possible alcohol withdrawal Possible refeeding syndrome Constipation * On 12/12, patient had blackish oral drainage, and stomach had high volume of residual, NG discontinued, and placed Dobbhoff tube * Thiamine, and folic acid and feeding through Dobbhoff tube INFECTIOUS DISEASE: Sepsis, likely due to pneumonia Pneumonia, due to Klebsiella pneumoniae/Burkholderia cepacia Aspiration pneumonia Dental infection Bronchoscopy done on 12/23/2024, will follow report * Sputum culture 12/01, Klebsiella pneumoniae * 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 * Blood and urine culture 12/01, Shows no growth * Discontinued Rocephin (12/01-12/06), azithromycin (12/01-12/06) and clindamycin (12/04-12/06) * Discontinue vancomycin (12/06 given up to 12/11), and cefepime (12/07 given up to 12/11) * Discontinue linezolid (12/11 given until 12/17), Meropenem (12/11 given up to 12/18) * Continue Bactrim (12/17) , increased bactrim to q 6 hrs * cxr w/ worsen infilrates vs bilateral edema ,suspect aspiration event, awaiting for conroy culture result * As per ID, meropenem to fetroja (no susceptibility profile to guide therapy and burkholderia may have Ielesse-a-hijhvyies (MBL) antibiotic resistance) HEMATOLOGY: Mild anemia, normocytic normochromic ENDOCRINE: Diabetes type 1 DKA/HHS * ISS METABOLIC: Hypokalemia Hyponatremia Hypomagnesemia Hypophosphatemia Hyperphosphatemia Respiratory alkalosis * ABG showed respiratory alkalosis, Vent setting changes pressure control motor volume control mode MSK/SKIN: Skin scab, on the heel of left leg New skin eruptions (xerosis/seborrheic dermatitis, possibly due to ICU related skin dryness), possible drug eruption or infection related * New erythematous/scaly rashes noted on checks, face and neck, no parts of body and mucosal involvement, patient is sedated and can not report any symptoms * Eucerin cream, monitoring eosinophils DIET: Tube feeding, Glucerna DVT prophylax: Lovenox GI prophylaxis: Protonix Bowel regimen: Lactulose LINES/DEVICES ETT: Intubated on 12/01 IV access: PICC line placed on 11/07 Drips: Fentanyl, Versed, Precedex and propofol Orellana catheter: Placed on 12/01. Disposition: Continue ICU status Family: Patients cousin Kristina([phone]) in bedside. Updated current management plan and verbally agree . Critical care time: Spent > 81 min, spent in direct critical care, including evaluation, management, review of labs/imaging, and multidisciplinary/family discussions, (excluding any procedures). Case discussed with Dr. Porter. Plan discussed with: Patient, Other (Nurse) My Orders My Orders Orders - SANDY ENCINAS Procedure Category Date Status Time Abg W/ Co-Ox RT 12/24/24 Logged 08:31 Kub Abdomen Single XY 12/24/24 Taken View 08:40 Ventilator Orders RT 12/24/24 Transmitted 09:03 Abg W/ Co-Ox RT 12/24/24 Logged 10:00 Complete Blood Count LAB 12/24/24 Logged 09:16 Dietary Evaluation Review Comments: 1) Initiate thiamin, folic acid, and MVI supplementation d/t recent ETOH abuse 2) If patient remains NPO > 7 days, consider EN/TPN to meet at least 75% of estimated daily needs 3) If GI is preferred, initiate Glucerna 1.2 @ 60 mL/hr goal rate as tolerated. Flush with 150 mL Q6H. TF regimen will provide 1728 kcals, 86g Pro, and 1759 mL free H2O (including flushes) per 24 hrs. Goal rate will meet ~87% estimated daily energy needs and ~72% estimated daily protein needs 4) Advance to 60g CCHO cardiac diet when medically feasible, pending ST approval 5) Collect HbA1c 6) Refer to outpatient RD/[facility] for diabetes education 7) Follow-up with cardiology, pulmonology, and psychiatry 8) Follow-up with social worker masters r/t ETOH abuse 9) Continue to monitor I&O, labs, and skin integrity Expected Outcomes/Goals: 1) patient to receive nutritional support within 7 days of NPO status 2) labs and GI symptoms to improve 3) diet to advance 4) follow-up in 2-3 days SANDY ENCINAS Dec 24, 2024 10:17
[2024-12-24 10:19] LABS: Hematocrit 27.5 % (41.0-53.0); Hemoglobin 9.1 g/dL (13.5-17.5); Mean Corpuscular Hemoglobin 28.5 pg (28.0-32.0); Mean Corpuscular Volume 86.5 fL (80.0-100.0)
[2024-12-24 10:20] LABS: Base Excess 2.4 mmol/L (-2.0-3.0)
--- NOTE | 2024-12-24 10:23 | DVHPN2 ---
Consult Progress Note Date Seen: Dec 24, 2024 Objective vital signs Vital Sign Date Time Temp Pulse Resp B/P (MAP) Pulse Ox O2 Delivery O2 Flow Rate FiO2 12/24/24 09:45 110 24 116/77 (90) 99 60 12/24/24 08:00 99.0 210.2 12/24/24 06:00 Mechanical Ventilator+ Total Intake and Output 12/23/24 12/23/24 12/24/24 15:00 23:00 07:00 Intake Total 1312.425 ml 1772.416 ml 1769.728 ml Output Total 1450 ml 3200 ml Balance 1312.425 ml 322.416 ml -1430.272 ml medications Current Medications Medications Dose Ordered Sig/Misa Route Start Time Stop Time Status Last Admin Dose Admin Midazolam HCl 50 ml @ 1 mls/hr Q24H IV 12/01/24 12:45 12/24/24 07:44 15 MLS/HR Dextrose 50 ml UD PRN IV 12/01/24 13:30 Cancel Insulin Glargine 15 units DAILY SC 12/02/24 10:00 Cancel Dextrose 50 ml UD PRN IV 12/01/24 16:45 Cancel Acetaminophen 650 mg Q6HP PRN PO 12/01/24 16:45 12/23/24 18:47 650 MG Famotidine 20 mg DAILY IV 12/02/24 10:00 12/23/24 10:49 20 MG Ipratropium [place] 0.5 mg Q4HR NEB 12/01/24 18:00 12/24/24 09:44 0.5 MG Albuterol 2.5 mg Q4HPRN PRN NEB 12/01/24 18:00 12/24/24 09:44 2.5 MG Diagnostic Test (Pha) 1 strip Q6HR 12/02/24 18:00 12/24/24 06:05 1 STRIP Insulin Human Regular Q6HR SC 12/02/24 18:00 12/24/24 06:05 9 UNITS Dextrose 50 ml UD PRN IV 12/02/24 15:45 Lorazepam 1 mg Q5MINP PRN IV 12/03/24 01:45 12/03/24 03:43 1 MG Enteral Nutritional Formula 1,000 ml 40ML/HR GT 12/03/24 09:30 12/17/24 23:41 1,000 ML Levetiracetam 100 ml @ 400 mls/hr BID IV 12/03/24 10:00 UNV Lactulose 30 ml Q6HR GT 12/05/24 08:45 12/24/24 05:38 30 ML Carbamazepine 400 mg BID GT 12/05/24 22:00 12/23/24 21:44 400 MG Sodium Chloride 10 ml QSHIFT@10,22 IV 12/07/24 22:00 12/23/24 22:00 10 ML Multi-Ingredient Ointment 1 applic DAILY TOP 12/09/24 10:00 12/23/24 10:49 1 APPLIC Metoclopramide HCl 10 mg Q8HR IV 12/17/24 16:45 12/24/24 05:38 10 MG Levetiracetam 100 ml @ 400 mls/hr BID IV 12/17/24 22:00 12/23/24 21:43 400 MLS/HR Thiamine HCl 100 mg DAILY PO 12/19/24 10:00 12/23/24 10:49 100 MG Propofol 100 ml @ 2.685 mls/ hr Q24H IV 12/18/24 20:45 12/24/24 08:29 26.85 MLS/HR Fentanyl Citrate 250 ml @ 2.5 mls/hr Q24H IV 12/20/24 02:45 12/24/24 09:01 35 MLS/HR Valproate Sodium 1000 mg/Sodium Chloride 110 ml @ 110 mls/hr BID IV 12/21/24 22:00 12/23/24 22:58 110 MLS/HR Ketamine HCl 500 mg/Sodium Chloride 500 ml @ 5.382 mls/ hr Q24H IV 12/21/24 15:15 12/24/24 06:55 61.893 MLS/HR Norepinephrine Bitartrate 250 ml @ 3.75 mls/hr Q24H IV 12/21/24 18:15 12/23/24 14:20 3.75 MLS/HR Trimethoprim/ Sulfamethoxazole 300 ml @ 0 mls/hr PER PHARMACY IV 12/22/24 18:00 Trimethoprim/ Sulfamethoxazole 20 ml/Dextrose 320 ml @ 212.939 mls/hr Q8H IV 12/22/24 17:30 12/24/24 08:30 212.939 MLS/HR Furosemide 20 mg DAILY IV 12/23/24 10:00 12/23/24 10:49 20 MG Cefiderocol 2 gm/ Sodium Chloride 100 ml @ 33.333 mls/ hr Q6H IV 12/24/24 10:00 laboratory and microbiology Laboratory Tests 12/24/24 04:09 Test 12/24/24 04:09 Range/Units Serum Glucose 313 #H 74-106 mg/dL Problem List/Assessment/Plan Problem List/Assessment/Plan patient seen at bedside full note to follow, worsening fevers, fiO2 up to 80%, peep 10, thick secretions on levophed minimal leukocytosis acutely elevated cxr w/ worsen infilrates vs bilateral edema suspect aspiration event check blood culture, trach culture, urine culture broaden meropenem to fetroja (no susceptibility profile to guide therapy and burkholderia may have Lpvmbio-e-osfpubqse (MBL) antibiotic resistance) increased bactrim to q 6 hrs given increased creatinine clearance in shock state will monitor clinically defer to pulmonology and senior mortgage underwriter teams on optimizing airway clearance (mucus plugging removal via bronch, diuresis, mucolytics) Dietary Evaluation Review Comments: 1) Initiate thiamin, folic acid, and MVI supplementation d/t recent ETOH abuse 2) If patient remains NPO > 7 days, consider EN/TPN to meet at least 75% of estimated daily needs 3) If GI is preferred, initiate Glucerna 1.2 @ 60 mL/hr goal rate as tolerated. Flush with 150 mL Q6H. TF regimen will provide 1728 kcals, 86g Pro, and 1759 mL free H2O (including flushes) per 24 hrs. Goal rate will meet ~87% estimated daily energy needs and ~72% estimated daily protein needs 4) Advance to 60g CCHO cardiac diet when medically feasible, pending ST approval 5) Collect HbA1c 6) Refer to outpatient RD/[facility] for diabetes education 7) Follow-up with cardiology, pulmonology, and psychiatry 8) Follow-up with social services designee r/t ETOH abuse 9) Continue to monitor I&O, labs, and skin integrity Expected Outcomes/Goals: 1) patient to receive nutritional support within 7 days of NPO status 2) labs and GI symptoms to improve 3) diet to advance 4) follow-up in 2-3 days MARCELA METZ MD Dec 24, 2024 10:23
[2024-12-24] MEDS: CEFIDEROCOL IV SCH (10:34)
[2024-12-24] MEDS: SODIUM CHL 0.9% IV SCH (10:34)
--- NOTE | 2024-12-24 10:40 | DVH ---
Date: 12/24/2024 09:39 AM Examination: XY KUB ABDOMEN SINGLE VIEW History: DOBHOFF PLACEMENT Comparison: XY KUB ABDOMEN SINGLE VIEW on DOS: 12/23/24, XY KUB ABDOMEN SINGLE VIEW on DOS: 12/22/24, XY KUB ABDOMEN SINGLE VIEW on DOS: 12/21/24 TECHNIQUE: Frontal views of the abdomen was obtained. FINDINGS: Dobbhoff tube stomach. Bowel gas pattern is unremarkable. The lung bases are unremarkable. No acute osseous abnormality identified. IMPRESSION: 1. Dobbhoff tube in the distal stomach. 2. Catheter noted traversing the lower pelvis. Correlate clinically. 3. Nonobstructive bowel gas pattern.
[2024-12-24] MEDS: SULFAMETH TRIMETH IV SCH (13:15)
[2024-12-24] MEDS: D5W 5% IV SCH (13:15)
[2024-12-25] VITALS (110 sets, daily range): BP systolic 81–163; BP diastolic 40–105; PULSE 81–140; RESP 9–33; TEMP 96.8–100.4; O2SAT 85–99
[2024-12-25 04:23] LABS: Hematocrit 26.8 % (41.0-53.0); Hemoglobin 8.7 g/dL (13.5-17.5); Mean Corpuscular Hemoglobin 28.5 pg (28.0-32.0); Mean Corpuscular Volume 87.9 fL (80.0-100.0); Nucleated Red Blood Cells % 0.0 %
--- NOTE | 2024-12-25 04:31 | DVH ---
CHEST RADIOGRAPH Indication: Position ET tube and compared previous chest x-ray Technique: Single frontal view of the chest was obtained. Comparison: XY CHEST XRAY 1 VIEW on DOS: 12/24/24 FINDINGS: Lines and Tubes: The endotracheal tube terminates 5.1 cm above the laci. Right PICC terminates in the superior vena cava. The enteric tube courses below the left hemidiaphragm and the tip extends out side the field of view. The endotracheal tube terminates 3.8 cm above the laci. Lungs: Bibasilar airspace opacities. Pleura: Small bilateral pleural effusions. No pneumothorax. Cardiomediastinal contours: Stable cardiac silhouette. Bones: No acute osseous abnormality. IMPRESSION: 1. Support tubes in appropriate position. 2. Bibasilar airspace opacities and small bilateral pleural effusions.
[2024-12-25 04:40] LABS: Chloride 105 mmol/L (98-107); Sodium 141 mmol/L (136-145)
[2024-12-25 04:41] LABS: Anion Gap 13 (5-15); Carbon Dioxide 23 mmol/L (20-31)
[2024-12-25 05:07] LABS: Glucose 282 mg/dL (74-106); Potassium 2.9 mmol/L (3.5-5.1)
[2024-12-25 05:08] LABS: BUN/Creatinine Ratio 6.4 (10.0-20.0); Blood Urea Nitrogen < 5 mg/dL (9-23); Calcium 8.7 mg/dL (8.7-10.4)
[2024-12-25] MEDS: POTASSIUM CHL 20MEQ/100ML 100 ML IV SCH (05:46)
[2024-12-25 07:40] LABS: Base Excess -4.3 mmol/L (-2.0-3.0)
[2024-12-25] MEDS ORDERED: VANCOMYCIN PER PHARMACY 0 MG IV SCH (16:45)
[2024-12-25] MEDS: VANCOMYCIN 1GM/250ML KIT 250 ML IV SCH (17:15)
[2024-12-25] MEDS: ENOXAPARIN SOD 40 MG/0.4 ML SYRINGE SC ONE (17:27)
--- NOTE | 2024-12-25 19:18 | DVHPNRES ---
Progress Note Date Seen: Dec 25, 2024 Resident Creating Document: MATTHEW BUTLER RESIDENT Medical Necessity Reason Pt with a Central, PICC or Fol: Yes The following are medically ne: Central Line, Orellana Catheter Subjective Review of Systems SAGE BONILLA is a 44-year-old male with past medical history of asthma, CVA, intracerebral hemorrhage, subdural hematoma, (status post [employer] shunt, 10 years back), depression, diabetes type 1, hypertension, seizure, bipolar disorder brought to the hospital due to altered mental status. Per patient's roommate, he has not been using his medicine since 1 week, and had developed nausea, vomiting and diarrhea since 3 days, and since 1 day has been altered. Denies fever, loss of consciousness, or any trauma. PMHx: asthma, CVA, intracerebral hemorrhage, subdural hematoma, (status post [employer] shunt, 10 years back), depression, diabetes type 1, hypertension, seizure, bipolar disorder PSHx: [employer] shunt (10 years back), had removed molar to 3 weeks back, had tracheostomy in 2019 (due to intracerebral hemorrhage) Social history: Smokes marijuana and drink heavy alcohol. Lives with friend at home. At baseline mobile, but does not work, on disability Home medication: Quetiapine, sertraline, gabapentin, insulin NPH, levetiracetam, oxcarbazepine, and hydroxyzine, noncompliant with the medicine Patient seen and examined at bedside. Patient is sedated and on mechanical ventilation TV 450 mL, RR 12, FiO? 60%, PEEP 10. patient passed bowel movements today . Pending tracheostomy. Patient is currently on Fetroja, Bactrim and vancomycin. We will repeat blood cultures tomorrow. Objective vital signs Vital Sign Date Time Temp Pulse Resp B/P (MAP) Pulse Ox O2 Delivery O2 Flow Rate FiO2 12/25/24 18:16 81 15 112/71 (85) 94 60 12/25/24 18:15 97.7 207.9 12/25/24 18:00 Mechanical Ventilator+ Total Intake and Output 12/24/24 12/24/24 12/25/24 14:59 22:59 06:59 Intake Total 1721.161 ml 2061.498 ml 66228.090 ml Output Total 3300 ml 2550 ml Balance 1721.161 ml -1238.502 ml 01843.090 ml medications Current Medications Medications Dose Ordered Sig/Misa Route Start Time Stop Time Status Last Admin Dose Admin Midazolam HCl 50 ml @ 1 mls/hr Q24H IV 12/01/24 12:45 12/25/24 17:30 15 MLS/HR Dextrose 50 ml UD PRN IV 12/01/24 13:30 Cancel Insulin Glargine 15 units DAILY SC 12/02/24 10:00 Cancel Dextrose 50 ml UD PRN IV 12/01/24 16:45 Cancel Acetaminophen 650 mg Q6HP PRN PO 12/01/24 16:45 12/23/24 18:47 650 MG Famotidine 20 mg DAILY IV 12/02/24 10:00 12/25/24 09:27 20 MG Ipratropium [place] 0.5 mg Q4HR NEB 12/01/24 18:00 12/25/24 19:08 0.5 MG Albuterol 2.5 mg Q4HPRN PRN NEB 12/01/24 18:00 12/25/24 18:16 2.5 MG Diagnostic Test (Pha) 1 strip Q6HR 12/02/24 18:00 12/25/24 17:13 1 STRIP Insulin Human Regular Q6HR SC 12/02/24 18:00 12/25/24 17:13 6 UNITS Dextrose 50 ml UD PRN IV 12/02/24 15:45 Lorazepam 1 mg Q5MINP PRN IV 12/03/24 01:45 12/03/24 03:43 1 MG Enteral Nutritional Formula 1,000 ml 40ML/HR GT 12/03/24 09:30 12/17/24 23:41 1,000 ML Levetiracetam 100 ml @ 400 mls/hr BID IV 12/03/24 10:00 UNV Lactulose 30 ml Q6HR GT 12/05/24 08:45 12/25/24 18:04 30 ML Carbamazepine 400 mg BID GT 12/05/24 22:00 12/25/24 09:40 400 MG Sodium Chloride 10 ml QSHIFT@10,22 IV 12/07/24 22:00 12/25/24 09:40 10 ML Multi-Ingredient Ointment 1 applic DAILY TOP 12/09/24 10:00 12/25/24 09:40 1 APPLIC Metoclopramide HCl 10 mg Q8HR IV 12/17/24 16:45 12/25/24 13:31 10 MG Levetiracetam 100 ml @ 400 mls/hr BID IV 12/17/24 22:00 12/25/24 09:20 400 MLS/HR Thiamine HCl 100 mg DAILY PO 12/19/24 10:00 12/25/24 09:27 100 MG Propofol 100 ml @ 2.685 mls/ hr Q24H IV 12/18/24 20:45 12/25/24 16:24 26.85 MLS/HR Fentanyl Citrate 250 ml @ 2.5 mls/hr Q24H IV 12/20/24 02:45 12/25/24 13:56 35 MLS/HR Valproate Sodium 1000 mg/Sodium Chloride 110 ml @ 110 mls/hr BID IV 12/21/24 22:00 12/25/24 09:48 110 MLS/HR Ketamine HCl 500 mg/Sodium Chloride 500 ml @ 5.382 mls/ hr Q24H IV 12/21/24 15:15 12/25/24 12:35 69.966 MLS/HR Norepinephrine Bitartrate 250 ml @ 3.75 mls/hr Q24H IV 12/21/24 18:15 12/24/24 11:51 3.75 MLS/HR Trimethoprim/ Sulfamethoxazole 300 ml @ 0 mls/hr PER PHARMACY IV 12/22/24 18:00 Cefiderocol 2 gm/ Sodium Chloride 100 ml @ 33.333 mls/ hr Q6H IV 12/24/24 10:00 12/25/24 16:23 33.333 MLS/HR Trimethoprim/ Sulfamethoxazole 20 ml/Dextrose 320 ml @ 212.939 mls/hr Q6HR IV 12/24/24 12:00 12/25/24 18:09 212.939 MLS/HR Furosemide 20 mg DAILY IV 12/26/24 10:00 Vancomycin HCl 0 ml @ 0 mls/hr UD IV 12/25/24 16:45 Enoxaparin Sodium 40 mg DAILY SC 12/26/24 10:00 Vancomycin HCl 250 ml @ 250 mls/hr Q8H IV 12/26/24 01:00 Examination Pt is lying on bed General Appearance: Sedated, Intubated on mechanical ventilation with a RASS -3 HEENT: Atraumatic, Mucous membranes moist/pink,ET tube in place Respiratory: Clear to auscultation, Normal air movement,on MV, mild crackles on left side Cardiovascular: Regular rate, Normal S1, Normal S2, No murmurs Abdominal: Active bowel sounds, Soft, no distention, no tenderness Extremities: No edema, Normal pulses, No tenderness/swelling Skin: A small 2 x 2 cm scab noticed at the heel of left foot, scaly lesions all over body Neuro: pupils reactive, no gag/cough reflex Nurse was there as vaudeville actor during examination laboratory and microbiology Laboratory Tests 12/25/24 03:50 Test 12/25/24 03:50 Range/Units Serum Glucose 282 H 74-106 mg/dL Microbiology Date/Time Source Procedure Growth Status 12/24/24 11:18 Blood Blood Culture - Preliminary NO GROWTH AFTER 24 HOURS OF INCUBATION. Resulted 12/23/24 12:50 Bronchial Washings Gram Stain - Preliminary Resulted 12/23/24 12:50 Bronchial Washings Respiratory Culture - Preliminary Resulted 12/19/24 16:35 Voided Urine Urine Culture - Final Complete 12/18/24 13:00 Thigh Right Gram Stain - Final Resulted 12/18/24 13:00 Thigh Right Wound Culture - Preliminary Resulted Labs and/or images reviewed: Labs reviewed by me, Image(s) reviewed by me Problem List/Assessment/Plan Problem List/Assessment/Plan Neurology # Acute Metabolic Encephalopathy: Likely secondary to DKA and sepsis. # History of Intracerebral hemorrhage, status post [employer] shunt. # Chronic Subdural Hematoma # Hx of Epilepsy. - Imaging: Head CT (12/01) showed no new intracranial abnormalities. - Sedation/Neurological Status: RASS score -3 - Discontinue: Quetiapine, Gabapentin, we will resume once patient is extubated - Continue home medications: Keppra, Oxcarbazepine, Valproic acid. - Sedation: Versed, Fentanyl, Propofol, Precedex, Ketamine. 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 60%, PEEP 10. - Plan is to do tracheostomy once patient is stabilized as on vent settings as surgery recommendations FiO? ~35% and PEEP ~5; - continue breathing treatments. - Cultures 12/11/24- Burkholderia Cepacia, 12/23/24- Pliminery culture showed Gram neg. rods , 12/24/24- blood culture showed gram + cooci - Antibiotics per ID Fetroja , Bactrim and added vancomysin today due to positive blood cultures, we ll ordere repeat cultures tomorrow - Bronchoscopy performed on 12/23; awaiting report. Gastrointestinal / Nutrition/ Liver # Possible refeeding syndrome. # Constipation- giving bowel regimen with the lactulose - Blackish oral drainage and high gastric residual noted on 12/12; NG tube discontinued, Dobbhoff tube placed, passd bowel movements today - Thiamine, Folic acid. - metoclopramide - Diet- Glucerna 10 ml/hr Genitourinary / Kidney # Acute Kidney Injury Likely secondary to volume depletion; resolved. - Medications: Lasix 20 mg daily. - strict I&O - Avoid Nephrotoxic medications. - Orellana catheter placed on 12/01. Endocrine # Uncontrolled Diabetes Mellitus Type 1. with A1C 10 # Severe DKA Resolved # medication /dietary noncompliance - Insulin sliding scale (ISS). - lantus 15 units given - continuously monitoring blood glucose - counseling on medication adherence we will be given once patient is extubated Metabolic Hypokalemia- resolving Hyponatremia- resolving Hypomagnesemia- resolving Hypophosphatemia- resolving Hyperphosphatemia- resolving - continuously monitoring electrolyte derangements and correcting as needed Musculoskeletal / Skin # Scab on left heel. # New skin eruptions: Xerosis/Seborrheic dermatitis, possible drug eruption or infection-related. # Erythematous/scaly rashes on cheeks, face, and neck; no mucosal involvement - Eucerin cream. - Monitoring eosinophil levels. Psych/Behavioral # Alcohol use disorder. # Possible alcohol withdrawal # Bipolar disorder/depression. - counseling on alcohol cessation we will be given once patient is extubated Hematology # Anemia: Mild, normocytic normochromic- continuously monitoring lab # severe leukocytosis likely from sepsis- ABX as per ID recommendations - Iron panel and ferratin ordered. 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 # Aspiration pneumonia. # Dental infection # G + bacteremia - Blood and urine cultures (12/01): No growth. - initially patient is on Rocephin, azithromycin and clindamycin discontinued and switched to vancomycin and cefepime again switched to linezolid agains switched to meropenem and currently on below abx - Repeat pancultures 12/24 showed initial blood cultures Gram-positive bacteremia so again added vancomycin along with Fetroja( due to potential Burkholderia resistance) and bactrim Lines / Tubes / Devices Airway: Intubated via ETT on 12/01. Vascular Access: PICC line placed on 11/07. Drips: Fentanyl, Versed, Precedex, Propofol. Prophylaxis / Supportive Care DVT Prophylaxis: Lovenox. GI Prophylaxis: Protonix. Nutrition: Glucerna via Dobbhoff tube. Goals of care discussed with the patient family for more than 29 minutes: Full code state Patient care updated to Durga ( friend /next of kin), addressed all concerns Critical care time spent excluding procedures 83 minutes Plan discussed with Dr Valentino and RN Plan discussed with: Other (Friend Durga) Dietary Evaluation Review Comments: 1) Initiate thiamin, folic acid, and MVI supplementation d/t recent ETOH abuse 2) If patient remains NPO > 7 days, consider EN/TPN to meet at least 75% of estimated daily needs 3) If GI is preferred, initiate Glucerna 1.2 @ 60 mL/hr goal rate as tolerated. Flush with 150 mL Q6H. TF regimen will provide 1728 kcals, 86g Pro, and 1759 mL free H2O (including flushes) per 24 hrs. Goal rate will meet ~87% estimated daily energy needs and ~72% estimated daily protein needs 4) Advance to 60g CCHO cardiac diet when medically feasible, pending ST approval 5) Collect HbA1c 6) Refer to outpatient RD/[facility] for diabetes education 7) Follow-up with cardiology, pulmonology, and psychiatry 8) Follow-up with social science professor r/t ETOH abuse 9) Continue to monitor I&O, labs, and skin integrity Expected Outcomes/Goals: 1) patient to receive nutritional support within 7 days of NPO status 2) labs and GI symptoms to improve 3) diet to advance 4) follow-up in 2-3 days Date of Service: Dec 25, 2024 Billing Provider: APRIL VALENTINO MD Common Visit Codes: 36256-FIKOPDPR CARE 30-74 MIN, 09189-[id number] CARE-EACH +30MIN MATTHEW BUTLER RESIDENT Dec 25, 2024 19:18 APRIL VALENTINO MD Dec 26, 2024 12:35
--- NOTE | 2024-12-25 23:03 | DVH ---
CHEST RADIOGRAPH Indication: DESATURATION Technique: Single frontal view of the chest was obtained Comparison: XY CHEST PORTABLE on DOS: 12/25/24, XY CHEST XRAY 1 VIEW on DOS: 12/24/24, XY CHEST XRAY 1 VIEW on DOS: 12/23/24, XY CHEST XRAY 1 VIEW on DOS: 12/22/24, XY CHEST PORTABLE on DOS: 12/21/24 FINDINGS/IMPRESSION: Right central venous catheter tip projects over the right atrium. Endotracheal tube tip projects celeste roximately 3.1 cm above the laci. Right upper extremity PICC tip projects over the SVC. [place] alan bilateral pulmonary opacities. Unchanged cardiomediastinal silhouette. The costophrenic angles a re excluded from field of view. No definite pneumothorax. Unchanged osseous structures.
[2024-12-25 23:05] LABS: Base Excess -2.4 mmol/L (-2.0-3.0)
[2024-12-26] VITALS (111 sets, daily range): BP systolic 82–173; BP diastolic 19–111; PULSE 71–145; RESP 10–38; TEMP 97.7–101.1; O2SAT 87–100
[2024-12-26 00:11] LABS: Potassium 3.7 mmol/L (3.5-5.1); Sodium 142 mmol/L (136-145)
[2024-12-26 00:12] LABS: Anion Gap 9 (5-15); Carbon Dioxide 24 mmol/L (20-31)
[2024-12-26 00:13] LABS: Calcium 8.3 mg/dL (8.7-10.4); Chloride 109 mmol/L (98-107)
[2024-12-26 00:28] LABS: BUN/Creatinine Ratio 7.6 (10.0-20.0); Blood Urea Nitrogen < 5 mg/dL (9-23); Glucose 273 mg/dL (74-106); Magnesium 1.3 mg/dL (1.6-2.6)
[2024-12-26] MEDS: PROPOFOL 100 ML IV SCH (00:30)
[2024-12-26] MEDS: VANCOMYCIN 1GM/250ML KIT 250 ML IV SCH (01:29)
[2024-12-26] MEDS: FUROSEMIDE 40 MG/4 ML VIAL IV ONE (01:31)
[2024-12-26] MEDS: POTASSIUM CHL 20MEQ/100ML 100 ML IV ONE (01:31)
[2024-12-26] MEDS: EPINEPHrine HCL 1 MG/10 ML SYRG ONE (02:40)
[2024-12-26 03:54] LABS: Hematocrit 23.0 % (41.0-53.0); Hemoglobin 7.4 g/dL (13.5-17.5); Mean Corpuscular Hemoglobin 28.4 pg (28.0-32.0); Mean Corpuscular Volume 88.6 fL (80.0-100.0); Nucleated Red Blood Cells % 0.0 %
--- NOTE | 2024-12-26 04:08 | DVH ---
CHEST RADIOGRAPH Indication: on vent Technique: Single frontal view of the chest was obtained COMPARISON: XY CHEST XRAY 1 VIEW on DOS: 12/25/24, XY CHEST PORTABLE on DOS: 12/25/24, XY CHEST XRAY 1 VIEW on DOS: 12/24/24, XY CHEST XRAY 1 VIEW on DOS: 12/23/24, XY CHEST XRAY 1 VIEW on DOS: 12/22/24 FINDINGS: Lines and Tubes: Unchanged. Lungs: Interval improvement in diffuse multifocal bilateral pulmonary airspace disease with residual bibasilar pulmonary infiltrate. No definite pleural effusions. No pneumothorax. Cardiomediastinal contours: Unremarkable Bones: Unremarkable IMPRESSION: 1. Interval improvement in diffuse multifocal bilateral pulmonary airspace disease with residual biba silar pulmonary infiltrate. 2. Lines and tubes unchanged.
[2024-12-26 04:26] LABS: Alanine Aminotransferase 12 U/L (7-40); Anion Gap 9 (5-15); Carbon Dioxide 25 mmol/L (20-31); Potassium 4.0 mmol/L (3.5-5.1); Sodium 142 mmol/L (136-145); Total Protein 5.8 g/dL (5.7-8.2)
[2024-12-26 04:31] LABS: Albumin 2.7 g/dL (3.2-4.8); Alkaline Phosphatase 168 U/L (46-116); BUN/Creatinine Ratio 7.4 (10.0-20.0); Bilirubin, Total < 0.2 mg/dL (0.2-1.0); Blood Urea Nitrogen < 5 mg/dL (9-23); Calcium 8.2 mg/dL (8.7-10.4); Chloride 108 mmol/L (98-107); Glucose 235 mg/dL (74-106); Magnesium 1.4 mg/dL (1.6-2.6)
[2024-12-26 07:22] LABS: Base Excess -0.4 mmol/L (-2.0-3.0)
[2024-12-26] MEDS: MAGNESIUM SULFATE 1GM/100ML 100 ML IV SCH (07:28)
--- NOTE | 2024-12-26 08:07 | DVHPNRES ---
Progress Note Date Seen: Dec 26, 2024 Resident Creating Document: MATTHEW BUTLER RESIDENT Medical Necessity Reason Pt with a Central, PICC or Fol: Yes The following are medically ne: Central Line, Orellana Catheter Subjective Review of Systems SAGE BONILLA is a 44-year-old male with past medical history of asthma, CVA, intracerebral hemorrhage, subdural hematoma, (status post TRANSPORTATION SALES CONSULTANT shunt, 10 years back), depression, diabetes type 1, hypertension, seizure, bipolar disorder brought to the hospital due to altered mental status. Per patient's roommate, he has not been using his medicine since 1 week, and had developed nausea, vomiting and diarrhea since 3 days, and since 1 day has been altered. Denies fever, loss of consciousness, or any trauma. PMHx: asthma, CVA, intracerebral hemorrhage, subdural hematoma, (status post TRANSPORTATION SALES CONSULTANT shunt, 10 years back), depression, diabetes type 1, hypertension, seizure, bipolar disorder PSHx: TRANSPORTATION SALES CONSULTANT shunt (10 years back), had removed molar to 3 weeks back, had tracheostomy in 2019 (due to intracerebral hemorrhage) Social history: Smokes marijuana and drink heavy alcohol. Lives with friend at home. At baseline mobile, but does not work, on disability Home medication: Quetiapine, sertraline, gabapentin, insulin NPH, levetiracetam, oxcarbazepine, and hydroxyzine, noncompliant with the medicine Patient seen and examined at bedside. Patient is sedated and on mechanical ventilation TV 450 mL, RR 12, FiO? 100%, PEEP 10. Pending tracheostomy. Patient is currently on Fetroja, Bactrim and vancomycin. Ordered blood culture today. Patient is desaturating to 87%, so ordered rocuronium 50mg Q3 PRN. Family meeting to discuss patients condition, goals of care. Objective vital signs Vital Sign Date Time Temp Pulse Resp B/P (MAP) Pulse Ox O2 Delivery O2 Flow Rate FiO2 12/26/24 07:50 114 23 101/58 (72) 94 100 12/26/24 07:33 101.1 12/26/24 04:00 Mechanical Ventilator+ Total Intake and Output 12/25/24 12/25/24 12/26/24 15:00 23:00 07:00 Intake Total 2237.779 ml 2763.028 ml 1343.009 ml Output Total 2550 ml Balance 2237.779 ml 213.028 ml 1343.009 ml medications Current Medications Medications Dose Ordered Sig/Misa Route Start Time Stop Time Status Last Admin Dose Admin Midazolam HCl 50 ml @ 1 mls/hr Q24H IV 12/01/24 12:45 12/26/24 06:53 15 MLS/HR Dextrose 50 ml UD PRN IV 12/01/24 13:30 Cancel Insulin Glargine 15 units DAILY SC 12/02/24 10:00 Cancel Dextrose 50 ml UD PRN IV 12/01/24 16:45 Cancel Acetaminophen 650 mg Q6HP PRN PO 12/01/24 16:45 12/26/24 07:33 650 MG Famotidine 20 mg DAILY IV 12/02/24 10:00 12/25/24 09:27 20 MG Ipratropium [place] 0.5 mg Q4HR NEB 12/01/24 18:00 12/26/24 05:55 0.5 MG Albuterol 2.5 mg Q4HPRN PRN NEB 12/01/24 18:00 12/26/24 05:55 2.5 MG Diagnostic Test (Pha) 1 strip Q6HR 12/02/24 18:00 12/26/24 05:42 1 STRIP Insulin Human Regular Q6HR SC 12/02/24 18:00 12/26/24 06:01 3 UNITS Dextrose 50 ml UD PRN IV 12/02/24 15:45 Lorazepam 1 mg Q5MINP PRN IV 12/03/24 01:45 12/03/24 03:43 1 MG Enteral Nutritional Formula 1,000 ml 40ML/HR GT 12/03/24 09:30 12/17/24 23:41 1,000 ML Levetiracetam 100 ml @ 400 mls/hr BID IV 12/03/24 10:00 UNV Lactulose 30 ml Q6HR GT 12/05/24 08:45 12/26/24 00:04 30 ML Carbamazepine 400 mg BID GT 12/05/24 22:00 12/25/24 22:14 400 MG Sodium Chloride 10 ml QSHIFT@10,22 IV 12/07/24 22:00 12/25/24 22:15 10 ML Multi-Ingredient Ointment 1 applic DAILY TOP 12/09/24 10:00 12/25/24 09:40 1 APPLIC Metoclopramide HCl 10 mg Q8HR IV 12/17/24 16:45 12/26/24 05:41 10 MG Levetiracetam 100 ml @ 400 mls/hr BID IV 12/17/24 22:00 12/25/24 22:15 400 MLS/HR Thiamine HCl 100 mg DAILY PO 12/19/24 10:00 12/25/24 09:27 100 MG Fentanyl Citrate 250 ml @ 2.5 mls/hr Q24H IV 12/20/24 02:45 12/25/24 20:54 35 MLS/HR Valproate Sodium 1000 mg/Sodium Chloride 110 ml @ 110 mls/hr BID IV 12/21/24 22:00 12/25/24 22:34 110 MLS/HR Ketamine HCl 500 mg/Sodium Chloride 500 ml @ 5.382 mls/ hr Q24H IV 12/21/24 15:15 12/25/24 21:02 75.348 MLS/HR Norepinephrine Bitartrate 250 ml @ 3.75 mls/hr Q24H IV 12/21/24 18:15 12/24/24 11:51 3.75 MLS/HR Trimethoprim/ Sulfamethoxazole 300 ml @ 0 mls/hr PER PHARMACY IV 12/22/24 18:00 Cefiderocol 2 gm/ Sodium Chloride 100 ml @ 33.333 mls/ hr Q6H IV 12/24/24 10:00 12/26/24 04:30 33.333 MLS/HR Trimethoprim/ Sulfamethoxazole 20 ml/Dextrose 320 ml @ 212.939 mls/hr Q6HR IV 12/24/24 12:00 12/26/24 05:41 212.939 MLS/HR Furosemide 20 mg DAILY IV 12/26/24 10:00 Vancomycin HCl 0 ml @ 0 mls/hr UD IV 12/25/24 16:45 Enoxaparin Sodium 40 mg DAILY SC 12/26/24 10:00 Vancomycin HCl 250 ml @ 250 mls/hr Q8H IV 12/26/24 01:00 12/26/24 01:29 250 MLS/HR Propofol 100 ml @ 2.709 mls/ hr Q24H IV 12/26/24 00:30 12/26/24 05:26 18.963 MLS/HR Magnesium Sulfate/ Dextrose 100 ml @ 100 mls/hr Q1HR IV 12/26/24 07:00 12/26/24 08:59 12/26/24 07:28 100 MLS/HR Examination Pt is lying on bed General Appearance: Sedated, Intubated on mechanical ventilation with a RASS -3 HEENT: Atraumatic, Mucous membranes moist/pink,ET tube in place Respiratory: Clear to auscultation, Normal air movement,on MV, mild crackles on left side Cardiovascular: Regular rate, Normal S1, Normal S2, No murmurs Abdominal: Active bowel sounds, Soft, no distention, no tenderness Extremities: No edema, Normal pulses, No tenderness/swelling Skin: A small 2 x 2 cm scab noticed at the heel of left foot, scaly lesions all over body Neuro: pupils reactive, no gag/cough reflex Nurse was there as potato pancake frier during examination laboratory and microbiology Laboratory Tests 12/26/24 03:00 Test 12/26/24 03:00 Range/Units Serum Glucose 235 H 74-106 mg/dL Microbiology Date/Time Source Procedure Growth Status 12/24/24 11:18 Blood Blood Culture - Preliminary NO GROWTH AFTER 24 HOURS OF INCUBATION. Resulted 12/23/24 12:50 Bronchial Washings Gram Stain - Preliminary Resulted 12/23/24 12:50 Bronchial Washings Respiratory Culture - Preliminary Resulted 12/19/24 16:35 Voided Urine Urine Culture - Final Complete 12/18/24 13:00 Thigh Right Gram Stain - Final Resulted 12/18/24 13:00 Thigh Right Wound Culture - Preliminary Resulted Problem List/Assessment/Plan Problem List/Assessment/Plan Neurology # Acute Metabolic Encephalopathy: Likely secondary to DKA and sepsis. # History of Intracerebral hemorrhage, status post TRANSPORTATION SALES CONSULTANT shunt. # Chronic subdural hematoma # Hx of Epilepsy. - Imaging: Head CT (12/01) showed no new intracranial abnormalities. - Sedation/Neurological Status: RASS score -3 - Discontinue: Quetiapine, Gabapentin, we will resume once patient is extubated - Continue home medications: Keppra, Oxcarbazepine, Valproic acid. - Sedation: Versed, Fentanyl, Propofol, Precedex, Ketamine. 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 100%, PEEP 10. - Plan is to do tracheostomy once patient is stabilized as on vent settings as surgery recommendations FiO? ~35% and PEEP ~5; - continue breathing treatments. - Antibiotics per ID Fetroja , Bactrim and added vancomysin today due to positive blood cultures, we ll ordere repeat cultures tomorrow - Bronchoscopy performed on 12/23; awaiting report. Gastrointestinal / Nutrition/ Liver # Possible refeeding syndrome. # Constipation- giving bowel regimen with the lactulose # PUD PPX- Protonix - Blackish oral drainage and high gastric residual noted on 12/12; NG tube discontinued, Dobbhoff tube placed, passed bowel movements today - Thiamine, Folic acid. - Diet- Glucerna 10 ml/hr Genitourinary / Kidney # Acute Kidney Injury Likely secondary to volume depletion; resolved. - Medications: Lasix 20 mg daily. - strict I&O - Avoid Nephrotoxic drugs - Orellana catheter placed on 12/01. Endocrine # Uncontrolled Diabetes Mellitus Type 1. with A1C 10 # Severe DKA Resolved # medication /dietary noncompliance - Insulin sliding scale (ISS). - Lantus 15 given - continuously monitoring blood glucose - counseling on medication adherence we will be given once patient is extubated Metabolic Hypokalemia- resolving Hyponatremia- resolving Hypomagnesemia- resolving Hypophosphatemia- resolving Hyperphosphatemia- resolving - continuously monitoring electrolyte derangements and correcting as needed Musculoskeletal / Skin # Scab on left heel. # New skin eruptions: Xerosis/Seborrheic dermatitis, possible drug eruption or infection-related. # Erythematous/scaly rashes on cheeks, face, and neck; no mucosal involvement - Eucerin cream. - Monitoring eosinophil levels. Psych/Behavioral # Alcohol use disorder. # Possible alcohol withdrawal # Bipolar disorder/depression. 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 # Aspiration pneumonia. # Dental infection # G + bacteremia - ordered repeat blood culture today - Blood and urine cultures (12/01): No growth. - initially patient is on Rocephin, azithromycin and clindamycin discontinued and switched to vancomycin and cefepime again switched to linezolid agains switched to meropenem and currently on below abx - Repeat pancultures 12/24 showed initial blood cultures Gram-positive bacteremia so again added vancomycin along with Fetroja( due to potential Burkholderia resistance) and bactrim Lines / Tubes / Devices Airway: Intubated via ETT on 12/01. Vascular Access: PICC line placed on 11/07. Drips: Fentanyl, Versed, Precedex, Propofol. Prophylaxis / Supportive Care DVT Prophylaxis: Lovenox. GI Prophylaxis: Protonix. Nutrition: Glucerna via Dobbhoff tube. Goals of care discussed with the patient family for more than 29 minutes: Full code state Patient care updated to Durga ( friend /next of kin), addressed all concerns Critical care time spent excluding procedures 83 minutes Plan discussed with Dr Valentino and RN Plan discussed with: Other (Durga, sister, RN) Dietary Evaluation Review Comments: 1) Initiate thiamin, folic acid, and MVI supplementation d/t recent ETOH abuse 2) If patient remains NPO > 7 days, consider EN/TPN to meet at least 75% of estimated daily needs 3) If GI is preferred, initiate Glucerna 1.2 @ 60 mL/hr goal rate as tolerated. Flush with 150 mL Q6H. TF regimen will provide 1728 kcals, 86g Pro, and 1759 mL free H2O (including flushes) per 24 hrs. Goal rate will meet ~87% estimated daily energy needs and ~72% estimated daily protein needs 4) Advance to 60g CCHO cardiac diet when medically feasible, pending ST approval 5) Collect HbA1c 6) Refer to outpatient RD/[facility] for diabetes education 7) Follow-up with cardiology, pulmonology, and psychiatry 8) Follow-up with social services designee r/t ETOH abuse 9) Continue to monitor I&O, labs, and skin integrity Expected Outcomes/Goals: 1) patient to receive nutritional support within 7 days of NPO status 2) labs and GI symptoms to improve 3) diet to advance 4) follow-up in 2-3 days Date of Service: Dec 26, 2024 Billing Provider: APRIL VALENTINO MD Common Visit Codes: [id number] CARE 30-74 MIN, [id number] CARE-EACH +30MIN MATTHEW BUTLER RESIDENT Dec 26, 2024 08:07 APRIL VALENTINO MD Dec 27, 2024 14:55
[2024-12-26] MEDS: MAGNESIUM SULFATE 1GM/100ML 100 ML IV ONE (09:45)
[2024-12-26] MEDS: FUROSEMIDE 20 MG/2 ML VIAL IV SCH (10:26)
[2024-12-26] MEDS: ROCURONIUM 10MG/ML 10ML VIAL IV ONE (11:02)
[2024-12-26] MEDS: INSULIN LANTUS (GLARGINE) 1 /0.01ml (100units/ml) SC ONE (11:11)
[2024-12-26 12:01] LABS: Iron 36.0 ug/dL (65-175)
[2024-12-26 12:03] LABS: Total Iron Binding Capacity 267.0 ug/dL (250-425)
[2024-12-26] MEDS: ENOXAPARIN SOD 40 MG/0.4 ML SYRINGE SC SCH (13:36)
[2024-12-26] MEDS ORDERED: ROCURONIUM 10MG/ML 10ML VIAL IV PRN (14:15)
[2024-12-26] MEDS: VANCOMYCIN 1.25GM/250ML 250 ML IV SCH (18:01)
[2024-12-27] VITALS (103 sets, daily range): BP systolic 82–213; BP diastolic 14–194; PULSE 21–114; RESP 10–31; TEMP 95.7–99; O2SAT 95–100
[2024-12-27 03:40] LABS: Hemoglobin 7.9 g/dL (13.5-17.5); Nucleated Red Blood Cells % 0.3 %
[2024-12-27 03:43] LABS: Hematocrit 22.8 % (41.0-53.0); Mean Corpuscular Hemoglobin 30.6 pg (28.0-32.0); Mean Corpuscular Volume 88.3 fL (80.0-100.0)
[2024-12-27 04:10] LABS: Alkaline Phosphatase 151 U/L (46-116); Anion Gap 12 (5-15); Bilirubin, Total < 0.2 mg/dL (0.2-1.0); Calcium 7.2 mg/dL (8.7-10.4); Carbon Dioxide 23 mmol/L (20-31); Chloride 108 mmol/L (98-107); Glucose 229 mg/dL (74-106); Magnesium 1.6 mg/dL (1.6-2.6); Sodium 143 mmol/L (136-145); Total Protein 5.8 g/dL (5.7-8.2)
[2024-12-27 04:22] LABS: BUN/Creatinine Ratio 10.9 (10.0-20.0); Blood Urea Nitrogen < 5 mg/dL (9-23); Potassium 3.8 mmol/L (3.5-5.1)
[2024-12-27 04:23] LABS: Alanine Aminotransferase 12 U/L (7-40); Albumin 2.7 g/dL (3.2-4.8)
--- NOTE | 2024-12-27 04:54 | DVH ---
CHEST RADIOGRAPH Indication: on vent Technique: Single frontal view of the chest was obtained Comparison: XY CHEST XRAY 1 VIEW on DOS: 12/26/24 FINDINGS: Lines and Tubes: The endotracheal tube terminates 4.5 cm above the laci. The right PICC terminates in the superior vena cava. Right central venous catheter also terminates in the superior vena cava. T he enteric tubes course below the left hemidiaphragm and tips extend outside the field of view. Lungs: Bilateral airspace disease. Pleura: No effusion. No pneumothorax. Cardiomediastinal contours: Unremarkable Bones: No acute osseous abnormality. IMPRESSION: 1. Appropriate position of the support lines and tubes. 2. Bilateral airspace disease similar to prior study.
[2024-12-27] MEDS: INSULIN LANTUS (GLARGINE) 1 /0.01ml (100units/ml) SC SCH (07:03)
[2024-12-27 07:06] LABS: Base Excess 1.3 mmol/L (-2.0-3.0)
[2024-12-27] MEDS: SODIUM PHOSPHATES 20 MEQ in SODIUM CHL 0.9% 100 ML IV ONE (09:20)
[2024-12-27] MEDS: MAGNESIUM SULFATE 1GM/100ML 100 ML IV ONE (10:29)
--- NOTE | 2024-12-27 14:02 | DVHPNRES ---
Progress Note Date Seen: Dec 27, 2024 Resident Creating Document: MATTHEW BUTLER RESIDENT Medical Necessity Reason Pt with a Central, PICC or Fol: Yes The following are medically ne: Central Line, Orellana Catheter Subjective Review of Systems SAGE BONILLA is a 44-year-old male with past medical history of asthma, CVA, intracerebral hemorrhage, subdural hematoma, (status post CASE COORDINATOR shunt, 10 years back), depression, diabetes type 1, hypertension, seizure, bipolar disorder brought to the hospital due to altered mental status. Per patient's roommate, he has not been using his medicine since 1 week, and had developed nausea, vomiting and diarrhea since 3 days, and since 1 day has been altered. Denies fever, loss of consciousness, or any trauma. PMHx: asthma, CVA, intracerebral hemorrhage, subdural hematoma, (status post CASE COORDINATOR shunt, 10 years back), depression, diabetes type 1, hypertension, seizure, bipolar disorder PSHx: CASE COORDINATOR shunt (10 years back), had removed molar to 3 weeks back, had tracheostomy in 2019 (due to intracerebral hemorrhage) Social history: Smokes marijuana and drink heavy alcohol. Lives with friend at home. At baseline mobile, but does not work, on disability Home medication: Quetiapine, sertraline, gabapentin, insulin NPH, levetiracetam, oxcarbazepine, and hydroxyzine, noncompliant with the medicine Patient seen and examined at bedside. Patient is sedated and on mechanical ventilation TV 450 mL, RR 12, FiO2 40%, PEEP 10. Pending tracheostomy. Patient is currently on Fetroja, Bactrim and vancomycin. Family meeting conducted today to discuss patient's options, condition. Objective vital signs Vital Sign Date Time Temp Pulse Resp B/P (MAP) Pulse Ox O2 Delivery O2 Flow Rate FiO2 12/27/24 13:11 69 15 102/68 (79) 97 40 12/27/24 12:00 Mechanical Ventilator+ 12/27/24 12:00 97.5 207.5 Total Intake and Output 12/26/24 12/26/24 12/27/24 15:00 23:00 07:00 Intake Total 2145.488 ml 2500.634 ml 2305.686 ml Output Total 6000 ml 2300 ml Balance 2145.488 ml -3499.366 ml 5.686 ml medications Current Medications Medications Dose Ordered Sig/Misa Route Start Time Stop Time Status Last Admin Dose Admin Midazolam HCl 50 ml @ 1 mls/hr Q24H IV 12/01/24 12:45 12/27/24 13:18 15 MLS/HR Dextrose 50 ml UD PRN IV 12/01/24 13:30 Cancel Insulin Glargine 15 units DAILY SC 12/02/24 10:00 Cancel Dextrose 50 ml UD PRN IV 12/01/24 16:45 Cancel Acetaminophen 650 mg Q6HP PRN PO 12/01/24 16:45 12/26/24 07:33 650 MG Famotidine 20 mg DAILY IV 12/02/24 10:00 12/27/24 10:07 20 MG Ipratropium [place] 0.5 mg Q4HR NEB 12/01/24 18:00 12/27/24 13:11 0.5 MG Albuterol 2.5 mg Q4HPRN PRN NEB 12/01/24 18:00 12/27/24 02:30 2.5 MG Diagnostic Test (Pha) 1 strip Q6HR 12/02/24 18:00 12/27/24 13:16 1 STRIP Insulin Human Regular Q6HR SC 12/02/24 18:00 12/27/24 13:15 2 UNITS Dextrose 50 ml UD PRN IV 12/02/24 15:45 Lorazepam 1 mg Q5MINP PRN IV 12/03/24 01:45 12/03/24 03:43 1 MG Enteral Nutritional Formula 1,000 ml 40ML/HR GT 12/03/24 09:30 12/17/24 23:41 1,000 ML Levetiracetam 100 ml @ 400 mls/hr BID IV 12/03/24 10:00 UNV Lactulose 30 ml Q6HR GT 12/05/24 08:45 12/26/24 00:04 30 ML Carbamazepine 400 mg BID GT 12/05/24 22:00 12/27/24 10:08 400 MG Sodium Chloride 10 ml QSHIFT@ IV 12/07/24 22:00 12/27/24 10:07 10 ML Multi-Ingredient Ointment 1 applic DAILY TOP 12/09/24 10:00 12/27/24 10:08 1 APPLIC Metoclopramide HCl 10 mg Q8HR IV 12/17/24 16:45 12/26/24 05:41 10 MG Levetiracetam 100 ml @ 400 mls/hr BID IV 12/17/24 22:00 12/27/24 09:41 400 MLS/HR Thiamine HCl 100 mg DAILY PO 12/19/24 10:00 12/27/24 10:08 100 MG Fentanyl Citrate 250 ml @ 2.5 mls/hr Q24H IV 12/20/24 02:45 12/27/24 07:00 35 MLS/HR Valproate Sodium 1000 mg/Sodium Chloride 110 ml @ 110 mls/hr BID IV 12/21/24 22:00 12/27/24 09:47 110 MLS/HR Ketamine HCl 500 mg/Sodium Chloride 500 ml @ 5.382 mls/ hr Q24H IV 12/21/24 15:15 12/27/24 11:39 96.876 MLS/HR Norepinephrine Bitartrate 250 ml @ 3.75 mls/hr Q24H IV 12/21/24 18:15 12/26/24 17:41 7.5 MLS/HR Trimethoprim/ Sulfamethoxazole 300 ml @ 0 mls/hr PER PHARMACY IV 12/22/24 18:00 Cefiderocol 2 gm/ Sodium Chloride 100 ml @ 33.333 mls/ hr Q6H IV 12/24/24 10:00 12/27/24 10:22 33.333 MLS/HR Trimethoprim/ Sulfamethoxazole 20 ml/Dextrose 320 ml @ 212.939 mls/hr Q6HR IV 12/24/24 12:00 12/27/24 11:40 212.939 MLS/HR Furosemide 20 mg DAILY IV 12/26/24 10:00 12/27/24 10:07 20 MG Vancomycin HCl 0 ml @ 0 mls/hr UD IV 12/25/24 16:45 Enoxaparin Sodium 40 mg DAILY SC 12/26/24 10:00 12/27/24 10:29 40 MG Propofol 100 ml @ 2.709 mls/ hr Q24H IV 12/26/24 00:30 12/27/24 12:00 27.09 MLS/HR Insulin Glargine 15 units QAM SC 12/27/24 07:00 12/27/24 07:03 15 UNITS Rocuronium [place] 50 mg Q3HP PRN IV 10/21/25 14:15 Vancomycin HCl 250 ml @ 200 mls/hr Q12H IV 12/26/24 17:00 12/27/24 04:56 200 MLS/HR Examination General Appearance: Sedated, Intubated on mechanical ventilation with a RASS -3 HEENT: Atraumatic, Mucous membranes moist/pink,ET tube in place Respiratory: Clear to auscultation, Normal air movement,on MV, mild crackles on left side Cardiovascular: Regular rate, Normal S1, Normal S2, No murmurs Abdominal: Active bowel sounds, Soft, no distention, no tenderness Extremities: No edema, Normal pulses, No tenderness/swelling Skin: A small 2 x 2 cm scab noticed at the heel of left foot, scaly lesions all over body Neuro: sluggish pupils but reactive, gag/cough reflex intact laboratory and microbiology Laboratory Tests 12/27/24 03:10 Test 12/27/24 03:10 Range/Units Serum Glucose 229 H 74-106 mg/dL Microbiology Date/Time Source Procedure Growth Status 12/26/24 09:05 Blood Blood Culture - Preliminary NO GROWTH AFTER 24 HOURS OF INCUBATION. Resulted 12/23/24 12:50 Bronchial Washings Gram Stain - Preliminary Resulted 12/23/24 12:50 Bronchial Washings Respiratory Culture - Preliminary Resulted 12/19/24 16:35 Voided Urine Urine Culture - Final Complete 12/18/24 13:00 Thigh Right Gram Stain - Final Resulted 12/18/24 13:00 Thigh Right Wound Culture - Preliminary Resulted Problem List/Assessment/Plan Problem List/Assessment/Plan Neurology # Acute Metabolic Encephalopathy: Likely secondary to DKA and sepsis. # History of Intracerebral hemorrhage, status post CASE COORDINATOR shunt. # Chronic subdural hematoma # Hx of Epilepsy. - Imaging: Head CT (12/01) showed no new intracranial abnormalities. - Sedation/Neurological Status: RASS score -3 - Discontinue: Quetiapine, Gabapentin, we will resume once patient is extubated - Continue home medications: Keppra, Oxcarbazepine, Valproic acid. - Sedation: Versed, Fentanyl, Propofol, Precedex, Ketamine. 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 - Plan is to do tracheostomy once patient is stabilized as on vent settings as surgery recommendations FiO? ~35% and PEEP ~5; - continue breathing treatments. - Antibiotics per ID Fetroja , Bactrim and added vancomysin today due to positive blood cultures, we ll ordere repeat cultures tomorrow - Bronchoscopy performed on 12/23; awaiting report. Gastrointestinal / Nutrition/ Liver # Possible refeeding syndrome. # Constipation- giving bowel regimen with the lactulose # PUD PPX- Protonix - Blackish oral drainage and high gastric residual noted on 12/12; NG tube discontinued, Dobbhoff tube placed, passed bowel movements today - Thiamine, Folic acid. - Diet- Glucerna 10 ml/hr Genitourinary / Kidney # Acute Kidney Injury Likely secondary to volume depletion; resolved. - Medications: Lasix 20 mg daily. - strict I&O - Avoid Nephrotoxic drugs - Orellana catheter placed on 12/01. Endocrine # Uncontrolled Diabetes Mellitus Type 1. with A1C 10 # Severe DKA Resolved # medication /dietary noncompliance - Insulin sliding scale (ISS). - Lantus 15 given - continuously monitoring blood glucose - counseling on medication adherence we will be given once patient is extubated Metabolic Hypokalemia- resolving Hyponatremia- resolving Hypomagnesemia- resolving Hypophosphatemia- resolving Hyperphosphatemia- resolving - continuously monitoring electrolyte derangements and correcting as needed Musculoskeletal / Skin # Scab on left heel. # New skin eruptions: Xerosis/Seborrheic dermatitis, possible drug eruption or infection-related. # Erythematous/scaly rashes on cheeks, face, and neck; no mucosal involvement - Eucerin cream. - Monitoring eosinophil levels. Psych/Behavioral # Alcohol use disorder. # Possible alcohol withdrawal # Bipolar disorder/depression. 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 # Aspiration pneumonia. # Dental infection # G + bacteremia - ordered repeat blood culture today - Blood and urine cultures (12/01): No growth. - initially patient is on Rocephin, azithromycin and clindamycin discontinued and switched to vancomycin and cefepime again switched to linezolid agains switched to meropenem and currently on below abx - Repeat pancultures 12/24 showed initial blood cultures Gram-positive bacteremia so again added vancomycin along with Fetroja( due to potential Burkholderia resistance) and bactrim Lines / Tubes / Devices Airway: Intubated via ETT on 12/01. Vascular Access: PICC line placed on 11/07. Drips: Fentanyl, Versed, Precedex, Propofol. Prophylaxis / Supportive Care DVT Prophylaxis: Lovenox. GI Prophylaxis: Protonix. Nutrition: Glucerna via Dobbhoff tube. Goals of care discussed with the patient family for more than 29 minutes: Full code state Patient care updated to Durga ( friend /next of kin), addressed all concerns. long dw friends and sister- about pt's hospital course and condition. prognosis poor Critical care time spent excluding procedures 83 minutes Plan discussed with Dr Valentino and RN Plan discussed with: Other (sister, durga ) Dietary Evaluation Review Comments: 1) Initiate thiamin, folic acid, and MVI supplementation d/t recent ETOH abuse 2) If patient remains NPO > 7 days, consider EN/TPN to meet at least 75% of estimated daily needs 3) If GI is preferred, initiate Glucerna 1.2 @ 60 mL/hr goal rate as tolerated. Flush with 150 mL Q6H. TF regimen will provide 1728 kcals, 86g Pro, and 1759 mL free H2O (including flushes) per 24 hrs. Goal rate will meet ~87% estimated daily energy needs and ~72% estimated daily protein needs 4) Advance to 60g CCHO cardiac diet when medically feasible, pending ST approval 5) Collect HbA1c 6) Refer to outpatient RD/[facility] for diabetes education 7) Follow-up with cardiology, pulmonology, and psychiatry 8) Follow-up with social work coordinator r/t ETOH abuse 9) Continue to monitor I&O, labs, and skin integrity Expected Outcomes/Goals: 1) patient to receive nutritional support within 7 days of NPO status 2) labs and GI symptoms to improve 3) diet to advance 4) follow-up in 2-3 days Date of Service: Dec 27, 2024 Billing Provider: APRIL VALENTINO MD Common Visit Codes: [id number] CARE 30-74 MIN, [id number] CARE-EACH +30MIN MATTHEW BUTLER RESIDENT Dec 27, 2024 14:01 APRIL VALENTINO MD Dec 28, 2024 12:17
[2024-12-27] MEDS ORDERED: methylPREDNISolone SOD SUCC 40 MG/ML VL IV ONE (16:45)
[2024-12-27] MEDS ORDERED: EPINEPHrine HCL 0.5 ML NEB NEB ONE (16:45)
[2024-12-28] VITALS (107 sets, daily range): BP systolic 75–168; BP diastolic 44–106; PULSE 71–118; RESP 9–24; TEMP 35.2; O2SAT 93–99
[2024-12-28 03:59] LABS: Hemoglobin 8.1 g/dL (13.5-17.5); Nucleated Red Blood Cells % 0.1 %
[2024-12-28 04:02] LABS: Hematocrit 24.1 % (41.0-53.0); Mean Corpuscular Hemoglobin 29.8 pg (28.0-32.0); Mean Corpuscular Volume 89.0 fL (80.0-100.0)
[2024-12-28 04:08] LABS: Carbon Dioxide 26 mmol/L (20-31)
[2024-12-28 04:09] LABS: Anion Gap 10 (5-15); Magnesium 1.7 mg/dL (1.6-2.6); Total Protein 6.3 g/dL (5.7-8.2)
[2024-12-28 04:14] LABS: Potassium 3.4 mmol/L (3.5-5.1); Sodium 145 mmol/L (136-145)
[2024-12-28 04:15] LABS: Alanine Aminotransferase < 9 U/L (7-40); Albumin 2.9 g/dL (3.2-4.8); Alkaline Phosphatase 178 U/L (46-116); BUN/Creatinine Ratio 9.6 (10.0-20.0); Bilirubin, Total < 0.2 mg/dL (0.2-1.0); Blood Urea Nitrogen < 5 mg/dL (9-23); Calcium 8.4 mg/dL (8.7-10.4); Chloride 109 mmol/L (98-107); Glucose 109 mg/dL (74-106)
--- NOTE | 2024-12-28 05:25 | DVH ---
CHEST RADIOGRAPH Indication: on vent Technique: Single frontal view of the chest was obtained COMPARISON: XY CHEST XRAY 1 VIEW on DOS: 12/27/24, XY CHEST XRAY 1 VIEW on DOS: 12/26/24, XY CHEST XR AY 1 VIEW on DOS: 12/25/24, XY CHEST PORTABLE on DOS: 12/25/24, XY CHEST XRAY 1 VIEW on DOS: 12/24/24 FINDINGS: Lines and Tubes: Slight interval retraction of the endotracheal tube such that the tip now projects a pproximately 5.9 cm above the level of the laci. Remaining lines and tubes unchanged. Lungs: Small left pleural effusion and minimal basilar airspace disease. No pneumothorax. Cardiomediastinal contours: Unremarkable Bones: Unremarkable IMPRESSION: 1. Slight interval retraction of the endotracheal tube such that the tip now projects approximately 5 .9 cm above the level of the laci. Remaining lines and tubes unchanged. 2. Small left pleural effusion and minimal basilar airspace disease.
[2024-12-28 08:00] LABS: Base Excess 0.5 mmol/L (-2.0-3.0)
[2024-12-28] MEDS: POTASSIUM CHL 20MEQ/100ML 100 ML IV ONE (08:51)
[2024-12-28] MEDS: MAGNESIUM SULFATE 1GM/100ML 100 ML IV ONE (09:37)
[2024-12-28] MEDS: VANCOMYCIN 1GM/250ML KIT 250 ML IV SCH (13:39)
[2024-12-28] MEDS: MIDAZOLAM DRIP 100 mg/100mL NS 100 ML IV SCH (17:52)
--- NOTE | 2024-12-28 18:15 | DVHPNRES ---
Progress Note Date Seen: Dec 28, 2024 Resident Creating Document: MATTHEW BUTLER RESIDENT Medical Necessity Reason Pt with a Central, PICC or Fol: Yes The following are medically ne: Central Line, Orellana Catheter Subjective Review of Systems SAGE BONILLA is a 44-year-old male with past medical history of asthma, CVA, intracerebral hemorrhage, subdural hematoma, (status post TURNTABLE ENGINEER shunt, 10 years back), depression, diabetes type 1, hypertension, seizure, bipolar disorder brought to the hospital due to altered mental status. Per patient's roommate, he has not been using his medicine since 1 week, and had developed nausea, vomiting and diarrhea since 3 days, and since 1 day has been altered. Denies fever, loss of consciousness, or any trauma. PMHx: asthma, CVA, intracerebral hemorrhage, subdural hematoma, (status post TURNTABLE ENGINEER shunt, 10 years back), depression, diabetes type 1, hypertension, seizure, bipolar disorder PSHx: TURNTABLE ENGINEER shunt (10 years back), had removed molar to 3 weeks back, had tracheostomy in 2019 (due to intracerebral hemorrhage) Social history: Smokes marijuana and drink heavy alcohol. Lives with friend at home. At baseline mobile, but does not work, on disability Home medication: Quetiapine, sertraline, gabapentin, insulin NPH, levetiracetam, oxcarbazepine, and hydroxyzine, noncompliant with the medicine Patient seen and examined at bedside. Patient is sedated and on mechanical ventilation TV 400 mL, RR 12, FiO2 35%, PEEP 10. Patient is currently on Bactrim and vancomycin. Family meeting conducted today to discuss patient's options, condition. Family and friends agreed to terminally wean the patient and as patient is a organ donor [facility] was contacted. Objective vital signs Vital Sign Date Time Temp Pulse Resp B/P (MAP) Pulse Ox O2 Delivery O2 Flow Rate FiO2 12/28/24 17:52 110/69 12/28/24 16:30 98.6 94 14 96 209.5 12/28/24 16:00 35 12/28/24 16:00 Mechanical Ventilator+ Total Intake and Output 12/27/24 12/27/24 12/28/24 14:59 22:59 06:59 Intake Total 1820.995 ml 1784.324 ml 2707.489 ml Output Total 2300 ml 2150 ml Balance 1820.995 ml -515.676 ml 557.489 ml medications Current Medications Medications Dose Ordered Sig/Misa Route Start Time Stop Time Status Last Admin Dose Admin Dextrose 50 ml UD PRN IV 12/01/24 13:30 Cancel Insulin Glargine 15 units DAILY SC 12/02/24 10:00 Cancel Dextrose 50 ml UD PRN IV 12/01/24 16:45 Cancel Acetaminophen 650 mg Q6HP PRN PO 12/01/24 16:45 12/26/24 07:33 650 MG Famotidine 20 mg DAILY IV 12/02/24 10:00 12/28/24 09:40 20 MG Ipratropium [place] 0.5 mg Q4HR NEB 12/01/24 18:00 12/28/24 14:55 0.5 MG Albuterol 2.5 mg Q4HPRN PRN NEB 12/01/24 18:00 12/28/24 14:55 2.5 MG Diagnostic Test (Pha) 1 strip Q6HR 12/02/24 18:00 12/28/24 17:39 1 STRIP Insulin Human Regular Q6HR SC 12/02/24 18:00 12/28/24 17:50 3 UNITS Dextrose 50 ml UD PRN IV 12/02/24 15:45 Lorazepam 1 mg Q5MINP PRN IV 12/03/24 01:45 12/03/24 03:43 1 MG Enteral Nutritional Formula 1,000 ml 40ML/HR GT 12/03/24 09:30 12/28/24 02:15 1,000 ML Levetiracetam 100 ml @ 400 mls/hr BID IV 12/03/24 10:00 UNV Lactulose 30 ml Q6HR GT 12/05/24 08:45 12/28/24 17:40 30 ML Carbamazepine 400 mg BID GT 12/05/24 22:00 12/28/24 09:37 400 MG Sodium Chloride 10 ml QSHIFT@ IV 12/07/24 22:00 12/28/24 09:40 10 ML Multi-Ingredient Ointment 1 applic DAILY TOP 12/09/24 10:00 12/28/24 09:40 1 APPLIC Metoclopramide HCl 10 mg Q8HR IV 12/17/24 16:45 12/28/24 14:07 10 MG Levetiracetam 100 ml @ 400 mls/hr BID IV 12/17/24 22:00 12/28/24 09:39 400 MLS/HR Thiamine HCl 100 mg DAILY PO 12/19/24 10:00 12/28/24 09:40 100 MG Fentanyl Citrate 250 ml @ 2.5 mls/hr Q24H IV 12/20/24 02:45 12/28/24 17:51 20 MLS/HR Valproate Sodium 1000 mg/Sodium Chloride 110 ml @ 110 mls/hr BID IV 12/21/24 22:00 12/28/24 09:38 110 MLS/HR Ketamine HCl 500 mg/Sodium Chloride 500 ml @ 5.382 mls/ hr Q24H IV 12/21/24 15:15 12/28/24 15:25 91.494 MLS/HR Norepinephrine Bitartrate 250 ml @ 3.75 mls/hr Q24H IV 12/21/24 18:15 12/28/24 12:48 3.75 MLS/HR Trimethoprim/ Sulfamethoxazole 300 ml @ 0 mls/hr PER PHARMACY IV 12/22/24 18:00 Trimethoprim/ Sulfamethoxazole 20 ml/Dextrose 320 ml @ 212.939 mls/hr Q6HR IV 12/24/24 12:00 12/28/24 11:48 212.939 MLS/HR Furosemide 20 mg DAILY IV 12/26/24 10:00 12/28/24 09:39 20 MG Vancomycin HCl 0 ml @ 0 mls/hr UD IV 12/25/24 16:45 Enoxaparin Sodium 40 mg DAILY SC 12/26/24 10:00 12/28/24 09:40 40 MG Propofol 100 ml @ 2.709 mls/ hr Q24H IV 12/26/24 00:30 12/28/24 17:38 27.09 MLS/HR Rocuronium [place] 50 mg Q3HP PRN IV 12/26/24 14:15 Vancomycin HCl 250 ml @ 250 mls/hr Q12H IV 12/28/24 12:00 12/28/24 13:39 250 MLS/HR Midazolam HCl 100 ml @ 1 mls/hr Q24H IV 12/28/24 17:45 12/28/24 17:52 15 MLS/HR Examination General Appearance: Sedated, Intubated on mechanical ventilation with a RASS -3 HEENT: Atraumatic, Mucous membranes moist/pink,ET tube in place Respiratory: Clear to auscultation, Normal air movement,on MV, mild crackles on left side Cardiovascular: Regular rate, Normal S1, Normal S2, No murmurs Abdominal: Active bowel sounds, Soft, no distention, no tenderness Extremities: No edema, Normal pulses, No tenderness/swelling Skin: A small 2 x 2 cm scab noticed at the heel of left foot, scaly lesions all over body Neuro: sluggish pupils but reactive, gag/cough reflex intact laboratory and microbiology Laboratory Tests 12/28/24 03:30 Test 12/28/24 03:30 Range/Units Serum Glucose 109 #H 74-106 mg/dL Microbiology Date/Time Source Procedure Growth Status 12/26/24 09:05 Blood Blood Culture - Preliminary NO GROWTH AFTER 48 HOURS OF INCUBATION. Resulted 12/23/24 12:50 Bronchial Washings Gram Stain - Preliminary Resulted 12/23/24 12:50 Bronchial Washings Respiratory Culture - Preliminary Resulted 12/19/24 16:35 Voided Urine Urine Culture - Final Complete 12/18/24 13:00 Thigh Right Gram Stain - Final Resulted 12/18/24 13:00 Thigh Right Wound Culture - Preliminary Resulted Problem List/Assessment/Plan Problem List/Assessment/Plan Neurology # Acute Metabolic Encephalopathy: Likely secondary to DKA and sepsis. # History of Intracerebral hemorrhage, status post TURNTABLE ENGINEER shunt. # Chronic subdural hematoma # Hx of Epilepsy. - Imaging: Head CT (12/01) showed no new intracranial abnormalities. - Sedation/Neurological Status: RASS score -3 - Discontinue: Quetiapine, Gabapentin, we will resume once patient is extubated - Continue home medications: Keppra, Oxcarbazepine, Valproic acid. - Sedation: Versed, Fentanyl, Propofol, Precedex, Ketamine. 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 - Plan is to do tracheostomy once patient is stabilized as on vent settings as surgery recommendations FiO? ~35% and PEEP ~5; - continue breathing treatments. - Antibiotics per ID Fetroja , Bactrim and added vancomysin today due to positive blood cultures, we ll ordere repeat cultures tomorrow - Bronchoscopy performed on 12/23; awaiting report. Gastrointestinal / Nutrition/ Liver # Possible refeeding syndrome. # Constipation- giving bowel regimen with the lactulose # PUD PPX- Protonix - Blackish oral drainage and high gastric residual noted on 12/12; NG tube discontinued, Dobbhoff tube placed, passed bowel movements today - Thiamine, Folic acid. - Diet- Glucerna 10 ml/hr Genitourinary / Kidney # Acute Kidney Injury Likely secondary to volume depletion; resolved. - Medications: Lasix 20 mg daily. - strict I&O - Avoid Nephrotoxic drugs - Orellana catheter placed on 12/01. Endocrine # Uncontrolled Diabetes Mellitus Type 1. with A1C 10 # Severe DKA Resolved # medication /dietary noncompliance - Insulin sliding scale (ISS). - Lantus 15 given - continuously monitoring blood glucose - counseling on medication adherence we will be given once patient is extubated Metabolic Hypokalemia- resolving Hyponatremia- resolving Hypomagnesemia- resolving Hypophosphatemia- resolving Hyperphosphatemia- resolving - continuously monitoring electrolyte derangements and correcting as needed Musculoskeletal / Skin # Scab on left heel. # New skin eruptions: Xerosis/Seborrheic dermatitis, possible drug eruption or infection-related. # Erythematous/scaly rashes on cheeks, face, and neck; no mucosal involvement - Eucerin cream. - Monitoring eosinophil levels. Psych/Behavioral # Alcohol use disorder. # Possible alcohol withdrawal # Bipolar disorder/depression. 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 # Aspiration pneumonia. # Dental infection # G + bacteremia - ordered repeat blood culture today - Blood and urine cultures (12/01): No growth. - initially patient is on Rocephin, azithromycin and clindamycin discontinued and switched to vancomycin and cefepime again switched to linezolid agains switched to meropenem and currently on below abx - Repeat pancultures 12/24 showed initial blood cultures Gram-positive bacteremia so again added vancomycin along with Fetroja( due to potential Burkholderia resistance) and bactrim Lines / Tubes / Devices Airway: Intubated via ETT on 12/01. Vascular Access: PICC line placed on 11/07. Drips: Fentanyl, Versed, Precedex, Propofol. Prophylaxis / Supportive Care DVT Prophylaxis: Lovenox. GI Prophylaxis: Protonix. Nutrition: Glucerna via Dobbhoff tube. Goals of care discussed with the patient family for more than 29 minutes: Full code state Patient care updated to Durga ( friend /next of kin), addressed all concerns. A Long discussion was done with friends and family about patient's condition and they accepted to terminally wean the patient with comfort measures. As patient is a organ donor [facility], family was informed about patient being organ donor and understood the plan of care. Critical care time spent excluding procedures 83 minutes Plan discussed with Dr Valentino and RN Plan discussed with: Other (sister, Durga) My Orders My Orders Orders - MATTHEW BUTLER RESIDENT Procedure Category Date Status Time Ventilator Orders RT 12/28/24 Transmitted 09:22 Dietary Evaluation Review Comments: 1) Initiate thiamin, folic acid, and MVI supplementation d/t recent ETOH abuse 2) If patient remains NPO > 7 days, consider EN/TPN to meet at least 75% of estimated daily needs 3) If GI is preferred, initiate Glucerna 1.2 @ 60 mL/hr goal rate as tolerated. Flush with 150 mL Q6H. TF regimen will provide 1728 kcals, 86g Pro, and 1759 mL free H2O (including flushes) per 24 hrs. Goal rate will meet ~87% estimated daily energy needs and ~72% estimated daily protein needs 4) Advance to 60g CCHO cardiac diet when medically feasible, pending ST approval 5) Collect HbA1c 6) Refer to outpatient RD/[facility] for diabetes education 7) Follow-up with cardiology, pulmonology, and psychiatry 8) Follow-up with clinical social work therapist r/t ETOH abuse 9) Continue to monitor I&O, labs, and skin integrity Expected Outcomes/Goals: 1) patient to receive nutritional support within 7 days of NPO status 2) labs and GI symptoms to improve 3) diet to advance 4) follow-up in 2-3 days Date of Service: Dec 28, 2024 Billing Provider: APRIL VALENTINO MD Common Visit Codes: 68162-[id number] CARE 30-74 MIN, 35039-[id number] CARE-EACH +30MIN MATTHEW BUTLER RESIDENT Dec 28, 2024 18:15 APRIL VALENTINO MD Dec 30, 2024 12:22
--- NOTE | 2024-12-28 21:21 | DVHPN2 ---
Consult Progress Note Objective vital signs Vital Sign Date Time Temp Pulse Resp B/P (MAP) Pulse Ox O2 Delivery O2 Flow Rate FiO2 12/28/24 20:26 109/70 12/28/24 20:08 76 16 94 35 12/28/24 18:30 99.0 210.2 12/28/24 18:00 Mechanical Ventilator+ Total Intake and Output 12/27/24 12/27/24 12/28/24 15:00 23:00 07:00 Intake Total 1963.711 ml 1799.724 ml 2740.138 ml Output Total 2300 ml 2150 ml Balance 1963.711 ml -500.276 ml 590.138 ml medications Current Medications Medications Dose Ordered Sig/Misa Route Start Time Stop Time Status Last Admin Dose Admin Dextrose 50 ml UD PRN IV 12/01/24 13:30 Cancel Insulin Glargine 15 units DAILY SC 12/02/24 10:00 Cancel Dextrose 50 ml UD PRN IV 12/01/24 16:45 Cancel Acetaminophen 650 mg Q6HP PRN PO 12/01/24 16:45 12/26/24 07:33 650 MG Famotidine 20 mg DAILY IV 12/02/24 10:00 12/28/24 09:40 20 MG Ipratropium [place] 0.5 mg Q4HR NEB 12/01/24 18:00 12/28/24 18:11 0.5 MG Albuterol 2.5 mg Q4HPRN PRN NEB 12/01/24 18:00 12/28/24 18:11 2.5 MG Diagnostic Test (Pha) 1 strip Q6HR 12/02/24 18:00 12/28/24 17:39 1 STRIP Insulin Human Regular Q6HR SC 12/02/24 18:00 12/28/24 17:50 3 UNITS Dextrose 50 ml UD PRN IV 12/02/24 15:45 Lorazepam 1 mg Q5MINP PRN IV 12/03/24 01:45 12/03/24 03:43 1 MG Enteral Nutritional Formula 1,000 ml 40ML/HR GT 12/03/24 09:30 12/28/24 02:15 1,000 ML Levetiracetam 100 ml @ 400 mls/hr BID IV 12/03/24 10:00 UNV Lactulose 30 ml Q6HR GT 12/05/24 08:45 10/23/25 17:40 30 ML Carbamazepine 400 mg BID GT 12/05/24 22:00 12/28/24 09:37 400 MG Sodium Chloride 10 ml QSHIFT@10,22 IV 12/07/24 22:00 12/28/24 09:40 10 ML Multi-Ingredient Ointment 1 applic DAILY TOP 12/09/24 10:00 12/28/24 09:40 1 APPLIC Metoclopramide HCl 10 mg Q8HR IV 12/17/24 16:45 12/28/24 14:07 10 MG Levetiracetam 100 ml @ 400 mls/hr BID IV 12/17/24 22:00 12/28/24 09:39 400 MLS/HR Thiamine HCl 100 mg DAILY PO 12/19/24 10:00 12/28/24 09:40 100 MG Fentanyl Citrate 250 ml @ 2.5 mls/hr Q24H IV 12/20/24 02:45 12/28/24 20:26 20 MLS/HR Valproate Sodium 1000 mg/Sodium Chloride 110 ml @ 110 mls/hr BID IV 12/21/24 22:00 12/28/24 09:38 110 MLS/HR Ketamine HCl 500 mg/Sodium Chloride 500 ml @ 5.382 mls/ hr Q24H IV 12/21/24 15:15 12/28/24 20:24 96.876 MLS/HR Norepinephrine Bitartrate 250 ml @ 3.75 mls/hr Q24H IV 12/21/24 18:15 12/28/24 12:48 3.75 MLS/HR Trimethoprim/ Sulfamethoxazole 300 ml @ 0 mls/hr PER PHARMACY IV 12/22/24 18:00 Trimethoprim/ Sulfamethoxazole 20 ml/Dextrose 320 ml @ 212.939 mls/hr Q6HR IV 12/24/24 12:00 12/28/24 18:26 212.939 MLS/HR Furosemide 20 mg DAILY IV 12/26/24 10:00 12/28/24 09:39 20 MG Vancomycin HCl 0 ml @ 0 mls/hr UD IV 12/25/24 16:45 Enoxaparin Sodium 40 mg DAILY SC 12/26/24 10:00 12/28/24 09:40 40 MG Propofol 100 ml @ 2.709 mls/ hr Q24H IV 12/26/24 00:30 12/28/24 20:23 27.09 MLS/HR Rocuronium [place] 50 mg Q3HP PRN IV 12/26/24 14:15 Vancomycin HCl 250 ml @ 250 mls/hr Q12H IV 12/28/24 12:00 12/28/24 13:39 250 MLS/HR Midazolam HCl 100 ml @ 1 mls/hr Q24H IV 12/28/24 17:45 12/28/24 20:24 15 MLS/HR laboratory and microbiology Laboratory Tests 12/28/24 03:30 Test 12/28/24 03:30 Range/Units Serum Glucose 109 #H 74-106 mg/dL Problem List/Assessment/Plan Problem List/Assessment/Plan patient seen at bedside full note to follow, worsening fevers, fiO2 up to 80%, peep 10, thick secretions on levophed minimal leukocytosis acutely elevated cxr w/ worsen infilrates vs bilateral edema suspect aspiration event check blood culture, trach culture, urine culture continue fetroja (no susceptibility profile to guide therapy and burkholderia may have Gmanrjq-v-lqhslidel (MBL) antibiotic resistance) bactrim to q 6 hrs given increased creatinine clearance in shock state will monitor clinically defer to pulmonology and [place] i inspector teams on optimizing airway clearance (mucus plugging removal via bronch, diuresis, mucolytics) Dietary Evaluation Review Comments: 1) Initiate thiamin, folic acid, and MVI supplementation d/t recent ETOH abuse 2) If patient remains NPO > 7 days, consider EN/TPN to meet at least 75% of estimated daily needs 3) If GI is preferred, initiate Glucerna 1.2 @ 60 mL/hr goal rate as tolerated. Flush with 150 mL Q6H. TF regimen will provide 1728 kcals, 86g Pro, and 1759 mL free H2O (including flushes) per 24 hrs. Goal rate will meet ~87% estimated daily energy needs and ~72% estimated daily protein needs 4) Advance to 60g CCHO cardiac diet when medically feasible, pending ST approval 5) Collect HbA1c 6) Refer to outpatient RD/[facility] for diabetes education 7) Follow-up with cardiology, pulmonology, and psychiatry 8) Follow-up with vp digital marketing social media and crm r/t ETOH abuse 9) Continue to monitor I&O, labs, and skin integrity Expected Outcomes/Goals: 1) patient to receive nutritional support within 7 days of NPO status 2) labs and GI symptoms to improve 3) diet to advance 4) follow-up in 2-3 days MARCELA METZ MD Dec 28, 2024 21:21
--- NOTE | 2024-12-28 21:21 | DVHPN2 ---
Consult Progress Note Date Seen: Dec 25, 2024 Objective vital signs Vital Sign Date Time Temp Pulse Resp B/P (MAP) Pulse Ox O2 Delivery O2 Flow Rate FiO2 12/28/24 20:26 109/70 12/28/24 20:08 76 16 94 35 12/28/24 18:30 99.0 210.2 12/28/24 18:00 Mechanical Ventilator+ Total Intake and Output 12/27/24 12/27/24 12/28/24 15:00 23:00 07:00 Intake Total 1963.711 ml 1799.724 ml 2740.138 ml Output Total 2300 ml 2150 ml Balance 1963.711 ml -500.276 ml 590.138 ml medications Current Medications Medications Dose Ordered Sig/Misa Route Start Time Stop Time Status Last Admin Dose Admin Dextrose 50 ml UD PRN IV 12/01/24 13:30 Cancel Insulin Glargine 15 units DAILY SC 12/02/24 10:00 Cancel Dextrose 50 ml UD PRN IV 12/01/24 16:45 Cancel Acetaminophen 650 mg Q6HP PRN PO 12/01/24 16:45 12/26/24 07:33 650 MG Famotidine 20 mg DAILY IV 12/02/24 10:00 12/28/24 09:40 20 MG Ipratropium [place] 0.5 mg Q4HR NEB 12/01/24 18:00 12/28/24 18:11 0.5 MG Albuterol 2.5 mg Q4HPRN PRN NEB 12/01/24 18:00 12/28/24 18:11 2.5 MG Diagnostic Test (Pha) 1 strip Q6HR 12/02/24 18:00 12/28/24 17:39 1 STRIP Insulin Human Regular Q6HR SC 12/02/24 18:00 12/28/24 17:50 3 UNITS Dextrose 50 ml UD PRN IV 12/02/24 15:45 Lorazepam 1 mg Q5MINP PRN IV 12/03/24 01:45 12/03/24 03:43 1 MG Enteral Nutritional Formula 1,000 ml 40ML/HR GT 12/03/24 09:30 12/28/24 02:15 1,000 ML Levetiracetam 100 ml @ 400 mls/hr BID IV 12/03/24 10:00 UNV Lactulose 30 ml Q6HR GT 12/05/24 08:45 12/28/24 17:40 30 ML Carbamazepine 400 mg BID GT 12/05/24 22:00 12/28/24 09:37 400 MG Sodium Chloride 10 ml QSHIFT@10,22 IV 12/07/24 22:00 12/28/24 09:40 10 ML Multi-Ingredient Ointment 1 applic DAILY TOP 12/09/24 10:00 12/28/24 09:40 1 APPLIC Metoclopramide HCl 10 mg Q8HR IV 12/17/24 16:45 12/28/24 14:07 10 MG Levetiracetam 100 ml @ 400 mls/hr BID IV 12/17/24 22:00 12/28/24 09:39 400 MLS/HR Thiamine HCl 100 mg DAILY PO 12/19/24 10:00 12/28/24 09:40 100 MG Fentanyl Citrate 250 ml @ 2.5 mls/hr Q24H IV 12/20/24 02:45 12/28/24 20:26 20 MLS/HR Valproate Sodium 1000 mg/Sodium Chloride 110 ml @ 110 mls/hr BID IV 12/21/24 22:00 12/28/24 09:38 110 MLS/HR Ketamine HCl 500 mg/Sodium Chloride 500 ml @ 5.382 mls/ hr Q24H IV 12/21/24 15:15 12/28/24 20:24 96.876 MLS/HR Norepinephrine Bitartrate 250 ml @ 3.75 mls/hr Q24H IV 12/21/24 18:15 12/28/24 12:48 3.75 MLS/HR Trimethoprim/ Sulfamethoxazole 300 ml @ 0 mls/hr PER PHARMACY IV 12/22/24 18:00 Trimethoprim/ Sulfamethoxazole 20 ml/Dextrose 320 ml @ 212.939 mls/hr Q6HR IV 12/24/24 12:00 12/28/24 18:26 212.939 MLS/HR Furosemide 20 mg DAILY IV 12/26/24 10:00 12/28/24 09:39 20 MG Vancomycin HCl 0 ml @ 0 mls/hr UD IV 12/25/24 16:45 Enoxaparin Sodium 40 mg DAILY SC 12/26/24 10:00 12/28/24 09:40 40 MG Propofol 100 ml @ 2.709 mls/ hr Q24H IV 12/26/24 00:30 12/28/24 20:23 27.09 MLS/HR Rocuronium [place] 50 mg Q3HP PRN IV 12/26/24 14:15 Vancomycin HCl 250 ml @ 250 mls/hr Q12H IV 12/28/24 12:00 12/28/24 13:39 250 MLS/HR Midazolam HCl 100 ml @ 1 mls/hr Q24H IV 12/28/24 17:45 12/28/24 20:24 15 MLS/HR laboratory and microbiology Laboratory Tests 12/28/24 03:30 Test 12/28/24 03:30 Range/Units Serum Glucose 109 #H 74-106 mg/dL Problem List/Assessment/Plan Problem List/Assessment/Plan patient seen at bedside full note to follow, worsening fevers, fiO2 up to 80%, peep 10, thick secretions on levophed minimal leukocytosis acutely elevated cxr w/ worsen infilrates vs bilateral edema suspect aspiration event check blood culture, trach culture, urine culture continue fetroja (no susceptibility profile to guide therapy and burkholderia may have Brntdlq-b-gyjuwnfsg (MBL) antibiotic resistance) increased bactrim to q 6 hrs given increased creatinine clearance in shock state will monitor clinically defer to pulmonology and chief digital media officer teams on optimizing airway clearance (mucus plugging removal via bronch, diuresis, mucolytics) Dietary Evaluation Review Comments: 1) Initiate thiamin, folic acid, and MVI supplementation d/t recent ETOH abuse 2) If patient remains NPO > 7 days, consider EN/TPN to meet at least 75% of estimated daily needs 3) If GI is preferred, initiate Glucerna 1.2 @ 60 mL/hr goal rate as tolerated. Flush with 150 mL Q6H. TF regimen will provide 1728 kcals, 86g Pro, and 1759 mL free H2O (including flushes) per 24 hrs. Goal rate will meet ~87% estimated daily energy needs and ~72% estimated daily protein needs 4) Advance to 60g CCHO cardiac diet when medically feasible, pending ST approval 5) Collect HbA1c 6) Refer to outpatient RD/[facility] for diabetes education 7) Follow-up with cardiology, pulmonology, and psychiatry 8) Follow-up with social science research assistant r/t ETOH abuse 9) Continue to monitor I&O, labs, and skin integrity Expected Outcomes/Goals: 1) patient to receive nutritional support within 7 days of NPO status 2) labs and GI symptoms to improve 3) diet to advance 4) follow-up in 2-3 days MARCELA METZ MD Dec 28, 2024 21:21
--- NOTE | 2024-12-28 21:22 | DVHPN2 ---
Consult Progress Note Date Seen: Dec 28, 2024 Objective vital signs Vital Sign Date Time Temp Pulse Resp B/P (MAP) Pulse Ox O2 Delivery O2 Flow Rate FiO2 12/28/24 20:26 109/70 12/28/24 20:08 76 16 94 35 12/28/24 18:30 99.0 210.2 12/28/24 18:00 Mechanical Ventilator+ Total Intake and Output 12/27/24 12/27/24 12/28/24 15:00 23:00 07:00 Intake Total 1963.711 ml 1799.724 ml 2740.138 ml Output Total 2300 ml 2150 ml Balance 1963.711 ml -500.276 ml 590.138 ml medications Current Medications Medications Dose Ordered Sig/Misa Route Start Time Stop Time Status Last Admin Dose Admin Dextrose 50 ml UD PRN IV 12/01/24 13:30 Cancel Insulin Glargine 15 units DAILY SC 12/02/24 10:00 Cancel Dextrose 50 ml UD PRN IV 12/01/24 16:45 Cancel Acetaminophen 650 mg Q6HP PRN PO 12/01/24 16:45 12/26/24 07:33 650 MG Famotidine 20 mg DAILY IV 12/02/24 10:00 12/28/24 09:40 20 MG Ipratropium [place] 0.5 mg Q4HR NEB 12/01/24 18:00 12/28/24 18:11 0.5 MG Albuterol 2.5 mg Q4HPRN PRN NEB 12/01/24 18:00 12/28/24 18:11 2.5 MG Diagnostic Test (Pha) 1 strip Q6HR 12/02/24 18:00 12/28/24 17:39 1 STRIP Insulin Human Regular Q6HR SC 12/02/24 18:00 12/28/24 17:50 3 UNITS Dextrose 50 ml UD PRN IV 12/02/24 15:45 Lorazepam 1 mg Q5MINP PRN IV 12/03/24 01:45 12/03/24 03:43 1 MG Enteral Nutritional Formula 1,000 ml 40ML/HR GT 12/03/24 09:30 12/28/24 02:15 1,000 ML Levetiracetam 100 ml @ 400 mls/hr BID IV 12/03/24 10:00 UNV Lactulose 30 ml Q6HR GT 12/05/24 08:45 12/28/24 17:40 30 ML Carbamazepine 400 mg BID GT 12/05/24 22:00 12/28/24 09:37 400 MG Sodium Chloride 10 ml QSHIFT@10,22 IV 12/07/24 22:00 12/28/24 09:40 10 ML Multi-Ingredient Ointment 1 applic DAILY TOP 12/09/24 10:00 12/28/24 09:40 1 APPLIC Metoclopramide HCl 10 mg Q8HR IV 12/17/24 16:45 12/28/24 14:07 10 MG Levetiracetam 100 ml @ 400 mls/hr BID IV 12/17/24 22:00 12/28/24 09:39 400 MLS/HR Thiamine HCl 100 mg DAILY PO 12/19/24 10:00 12/28/24 09:40 100 MG Fentanyl Citrate 250 ml @ 2.5 mls/hr Q24H IV 12/20/24 02:45 12/28/24 20:26 20 MLS/HR Valproate Sodium 1000 mg/Sodium Chloride 110 ml @ 110 mls/hr BID IV 12/21/24 22:00 12/28/24 09:38 110 MLS/HR Ketamine HCl 500 mg/Sodium Chloride 500 ml @ 5.382 mls/ hr Q24H IV 12/21/24 15:15 12/28/24 20:24 96.876 MLS/HR Norepinephrine Bitartrate 250 ml @ 3.75 mls/hr Q24H IV 12/21/24 18:15 12/28/24 12:48 3.75 MLS/HR Trimethoprim/ Sulfamethoxazole 300 ml @ 0 mls/hr PER PHARMACY IV 12/22/24 18:00 Trimethoprim/ Sulfamethoxazole 20 ml/Dextrose 320 ml @ 212.939 mls/hr Q6HR IV 12/24/24 12:00 12/28/24 18:26 212.939 MLS/HR Furosemide 20 mg DAILY IV 12/26/24 10:00 12/28/24 09:39 20 MG Vancomycin HCl 0 ml @ 0 mls/hr UD IV 12/25/24 16:45 Enoxaparin Sodium 40 mg DAILY SC 12/26/24 10:00 12/28/24 09:40 40 MG Propofol 100 ml @ 2.709 mls/ hr Q24H IV 12/26/24 00:30 12/28/24 20:23 27.09 MLS/HR Rocuronium [place] 50 mg Q3HP PRN IV 12/26/24 14:15 Vancomycin HCl 250 ml @ 250 mls/hr Q12H IV 12/28/24 12:00 12/28/24 13:39 250 MLS/HR Midazolam HCl 100 ml @ 1 mls/hr Q24H IV 12/28/24 17:45 12/28/24 20:24 15 MLS/HR laboratory and microbiology Laboratory Tests 12/28/24 03:30 Test 12/28/24 03:30 Range/Units Serum Glucose 109 #H 74-106 mg/dL Problem List/Assessment/Plan Problem List/Assessment/Plan patient seen at bedside full note to follow, worsening fevers, fiO2 up to 80%, peep 10, thick secretions on levophed minimal leukocytosis acutely elevated cxr w/ worsen infilrates vs bilateral edema suspect aspiration event check blood culture, trach culture, urine culture broaden meropenem to fetroja (no susceptibility profile to guide therapy and burkholderia may have Zchtwun-r-kpeccmxel (MBL) antibiotic resistance) increased bactrim to q 6 hrs given increased creatinine clearance in shock state will monitor clinically defer to pulmonology and airborne sensor specialist teams on optimizing airway clearance (mucus plugging removal via bronch, diuresis, mucolytics) Dietary Evaluation Review Comments: 1) Initiate thiamin, folic acid, and MVI supplementation d/t recent ETOH abuse 2) If patient remains NPO > 7 days, consider EN/TPN to meet at least 75% of estimated daily needs 3) If GI is preferred, initiate Glucerna 1.2 @ 60 mL/hr goal rate as tolerated. Flush with 150 mL Q6H. TF regimen will provide 1728 kcals, 86g Pro, and 1759 mL free H2O (including flushes) per 24 hrs. Goal rate will meet ~87% estimated daily energy needs and ~72% estimated daily protein needs 4) Advance to 60g CCHO cardiac diet when medically feasible, pending ST approval 5) Collect HbA1c 6) Refer to outpatient RD/[facility] for diabetes education 7) Follow-up with cardiology, pulmonology, and psychiatry 8) Follow-up with social security assessor r/t ETOH abuse 9) Continue to monitor I&O, labs, and skin integrity Expected Outcomes/Goals: 1) patient to receive nutritional support within 7 days of NPO status 2) labs and GI symptoms to improve 3) diet to advance 4) follow-up in 2-3 days MARCELA METZ MD Dec 28, 2024 21:22
[2024-12-29] VITALS (104 sets, daily range): BP systolic 86–176; BP diastolic 42–127; PULSE 71–87; RESP 10–20; TEMP 96.4–98.4; O2SAT 91–99
[2024-12-29 04:12] LABS: INR 1.06 (0.9-1.15); Partial Thromboplastin Time 26.7 SEC (24.5-34.5); Prothrombin Time 11.2 sec (9.3-11.8)
[2024-12-29 04:18] LABS: Anion Gap 9 (5-15); Carbon Dioxide 25 mmol/L (20-31); Lipase 16 U/L (12-53); Magnesium 1.8 mg/dL (1.6-2.6); Sodium 143 mmol/L (136-145); Total Protein 6.0 g/dL (5.7-8.2)
[2024-12-29 04:20] LABS: Hematocrit 23.3 % (41.0-53.0); Hemoglobin 7.6 g/dL (13.5-17.5); Mean Corpuscular Hemoglobin 28.8 pg (28.0-32.0); Mean Corpuscular Volume 87.9 fL (80.0-100.0)
[2024-12-29 04:35] LABS: Alanine Aminotransferase < 9 U/L (7-40); Albumin 2.7 g/dL (3.2-4.8); Alkaline Phosphatase 179 U/L (46-116); BUN/Creatinine Ratio 8.6 (10.0-20.0); Bilirubin, Total < 0.2 mg/dL (0.2-1.0); Blood Urea Nitrogen < 5 mg/dL (9-23); Calcium 8.3 mg/dL (8.7-10.4); Chloride 109 mmol/L (98-107); Creatine Kinase IFCC 23 U/L (46-171); Glucose 205 mg/dL (74-106); Potassium 2.9 mmol/L (3.5-5.1)
[2024-12-29 04:36] LABS: Amylase < 20 U/L (30-118)
[2024-12-29 05:14] LABS: Bilirubin, Direct < 0.1 mg/dL (<0.3)
[2024-12-29 05:31] LABS: Total Cells Counted 100.0 (100)
[2024-12-29 06:16] LABS: Base Excess -0.5 mmol/L (-2.0-3.0)
[2024-12-29] MEDS: MAGNESIUM SULFATE 1GM/100ML 100 ML IV ONE (06:35)
[2024-12-29 06:39] LABS: Urine Protein, UAD Negative (Negative)
[2024-12-29] MEDS: POTASSIUM CHL 20MEQ/100ML 100 ML IV SCH (07:25)
--- NOTE | 2024-12-29 07:30 | ECG ---
[facility] Test Date: 2024-12-29 Test Time: 05:23:45 Pat Name: SAGE BONILLA Department: ICU Room: [address] [place] [address] A Gender: M Probate Lawyer: KEYANA : 1980 Requested By: JIMMIE REIS Order Number: [id number] Reading MD: Chino Aguilar Measurements Intervals [place] Rate: 72 P: 81 MI: 153 QRS: 75 QRSD: 80 T: 68 QT: 419 QTc: 459 Interpretive Statements Sinus rhythm Borderline low voltage, extremity leads Baseline wander in lead(s) V4 Electronically Signed On 01-01-2025 15:28:02 PDT by Chino Aguilar Please click the below link to view image of tracing.
--- NOTE | 2024-12-29 08:52 | DVH ---
CHEST RADIOGRAPH Indication: on vent Technique: Single frontal view of the chest was obtained Comparison: XY CHEST XRAY 1 VIEW on DOS: 12/28/24, XY CHEST XRAY 1 VIEW on DOS: 12/27/24, XY CHEST XR AY 1 VIEW on DOS: 12/26/24, XY CHEST XRAY 1 VIEW on DOS: 12/25/24, XY CHEST PORTABLE on DOS: 12/25/24 , XY CHEST XRAY 1 VIEW on DOS: 12/28/24 FINDINGS: Lines and Tubes: Slight interval retraction of the endotracheal tube such that the tip now projects a pproximately 5.9 cm above the level of the laci. Remaining lines and tubes unchanged. Lungs: Small left pleural effusion and minimal basilar airspace disease. No pneumothorax. Cardiomediastinal contours: Unremarkable Bones: Unremarkable IMPRESSION: No interval change
[2024-12-29 10:15] LABS: Mean Corpuscular Volume 88.1 fL (80.0-100.0)
[2024-12-29 10:16] LABS: Hematocrit 24.8 % (41.0-53.0); Hemoglobin 8.0 g/dL (13.5-17.5); Mean Corpuscular Hemoglobin 28.5 pg (28.0-32.0)
[2024-12-29 10:29] LABS: Anion Gap 10 (5-15); Carbon Dioxide 25 mmol/L (20-31); Magnesium 1.9 mg/dL (1.6-2.6); Potassium 4.1 mmol/L (3.5-5.1); Sodium 145 mmol/L (136-145); Total Protein 6.4 g/dL (5.7-8.2)
[2024-12-29 10:38] LABS: Alanine Aminotransferase 9 U/L (7-40); Albumin 2.9 g/dL (3.2-4.8); Alkaline Phosphatase 188 U/L (46-116); BUN/Creatinine Ratio 8.2 (10.0-20.0); Bilirubin, Total < 0.2 mg/dL (0.2-1.0); Blood Urea Nitrogen < 5 mg/dL (9-23); Calcium 8.2 mg/dL (8.7-10.4); Chloride 110 mmol/L (98-107); Glucose 226 mg/dL (74-106)
[2024-12-29 11:11] LABS: Total Cells Counted 100.0 (100)
[2024-12-29 14:02] LABS: INR 1.08 (0.9-1.15); Partial Thromboplastin Time 27.0 SEC (24.5-34.5); Prothrombin Time 11.4 sec (9.3-11.8)
[2024-12-29 14:05] LABS: Alanine Aminotransferase 10 U/L (7-40); Albumin 2.7 g/dL (3.2-4.8); Alkaline Phosphatase 197 U/L (46-116); Bilirubin, Direct < 0.1 mg/dL (<0.3); Bilirubin, Total < 0.2 mg/dL (0.2-1.0); Creatine Kinase IFCC < 15 U/L (46-171); Total Protein 5.9 g/dL (5.7-8.2)
[2024-12-29 14:16] LABS: Lipase 16 U/L (12-53)
[2024-12-29 14:18] LABS: Amylase < 20 U/L (30-118)
--- NOTE | 2024-12-29 15:01 | DVHPNRES ---
Progress Note Date Seen: Dec 29, 2024 Resident Creating Document: MATTHEW BUTLER RESIDENT Medical Necessity Reason Pt with a Central, PICC or Fol: Yes The following are medically ne: Central Line, Orellana Catheter Subjective Review of Systems SAGE BONILLA is a 44-year-old male with past medical history of asthma, CVA, intracerebral hemorrhage, subdural hematoma, (status post [employer] shunt, 10 years back), depression, diabetes type 1, hypertension, seizure, bipolar disorder brought to the hospital due to altered mental status. Per patient's roommate, he has not been using his medicine since 1 week, and had developed nausea, vomiting and diarrhea since 3 days, and since 1 day has been altered. Denies fever, loss of consciousness, or any trauma. PMHx: asthma, CVA, intracerebral hemorrhage, subdural hematoma, (status post [employer] shunt, 10 years back), depression, diabetes type 1, hypertension, seizure, bipolar disorder PSHx: HE[employer] shunt (10 years back), had removed molar to 3 weeks back, had tracheostomy in 2019 (due to intracerebral hemorrhage) Social history: Smokes marijuana and drink heavy alcohol. Lives with friend at home. At baseline mobile, but does not work, on disability Home medication: Quetiapine, sertraline, gabapentin, insulin NPH, levetiracetam, oxcarbazepine, and hydroxyzine, noncompliant with the medicine Patient seen and examined at bedside. Patient is sedated and on mechanical ventilation TV 400 mL, RR 12, FiO2 35%, PEEP 10. Patient is currently on Bactrim and vancomycin. Family meeting conducted today to discuss patient's options, condition. Family and friends agreed to terminally wean the patient and as per [address] [facility] [address] chest/abdomen/pelvis with contrast and is to go to the OR on Wednesday. Today patient had hematuria and Lovenox was stopped. Objective vital signs Vital Sign Date Time Temp Pulse Resp B/P (MAP) Pulse Ox O2 Delivery O2 Flow Rate FiO2 12/29/24 14:00 97.9 75 11 135/87 (103) 93 208.2 140/78 (98) 12/29/24 14:00 Mechanical Ventilator+ 35 35 Total Intake and Output 12/28/24 12/28/24 12/29/24 15:00 23:00 07:00 Intake Total 2172.272 ml 1492.428 ml 1573.062 ml Output Total 3100 ml 2600 ml Balance 2172.272 ml -1607.572 ml -1026.938 ml medications Current Medications Medications Dose Ordered Sig/Misa Route Start Time Stop Time Status Last Admin Dose Admin Dextrose 50 ml UD PRN IV 12/01/24 13:30 Cancel Insulin Glargine 15 units DAILY SC 12/02/24 10:00 Cancel Dextrose 50 ml UD PRN IV 12/01/24 16:45 Cancel Acetaminophen 650 mg Q6HP PRN PO 12/01/24 16:45 12/26/24 07:33 650 MG Famotidine 20 mg DAILY IV 12/02/24 10:00 12/29/24 10:19 20 MG Ipratropium [place] 0.5 mg Q4HR NEB 12/01/24 18:00 12/29/24 13:57 0.5 MG Albuterol 2.5 mg Q4HPRN PRN NEB 12/01/24 18:00 12/29/24 13:57 2.5 MG Diagnostic Test (Pha) 1 strip Q6HR 12/02/24 18:00 12/29/24 12:08 1 STRIP Insulin Human Regular Q6HR SC 12/02/24 18:00 12/29/24 12:21 6 UNITS Dextrose 50 ml UD PRN IV 12/02/24 15:45 Lorazepam 1 mg Q5MINP PRN IV 12/03/24 01:45 12/03/24 03:43 1 MG Enteral Nutritional Formula 1,000 ml 40ML/HR GT 12/03/24 09:30 12/28/24 02:15 1,000 ML Levetiracetam 100 ml @ 400 mls/hr BID IV 12/03/24 10:00 UNV Lactulose 30 ml Q6HR GT 12/05/24 08:45 12/29/24 12:07 30 ML Carbamazepine 400 mg BID GT 12/05/24 22:00 12/29/24 10:18 400 MG Sodium Chloride 10 ml QSHIFT@ IV 12/07/24 22:00 12/29/24 10:20 10 ML Multi-Ingredient Ointment 1 applic DAILY TOP 12/09/24 10:00 12/29/24 10:20 1 APPLIC Metoclopramide HCl 10 mg Q8HR IV 12/17/24 16:45 12/29/24 13:48 10 MG Levetiracetam 100 ml @ 400 mls/hr BID IV 12/17/24 22:00 12/29/24 10:19 400 MLS/HR Thiamine HCl 100 mg DAILY PO 12/19/24 10:00 12/29/24 10:20 100 MG Fentanyl Citrate 250 ml @ 2.5 mls/hr Q24H IV 12/20/24 02:45 12/29/24 12:21 25 MLS/HR Valproate Sodium 1000 mg/Sodium Chloride 110 ml @ 110 mls/hr BID IV 12/21/24 22:00 12/29/24 10:19 110 MLS/HR Ketamine HCl 500 mg/Sodium Chloride 500 ml @ 5.382 mls/ hr Q24H IV 12/21/24 15:15 12/29/24 11:48 96.876 MLS/HR Norepinephrine Bitartrate 250 ml @ 3.75 mls/hr Q24H IV 12/21/24 18:15 12/28/24 12:48 3.75 MLS/HR Trimethoprim/ Sulfamethoxazole 300 ml @ 0 mls/hr PER PHARMACY IV 12/22/24 18:00 Trimethoprim/ Sulfamethoxazole 20 ml/Dextrose 320 ml @ 212.939 mls/hr Q6HR IV 12/24/24 12:00 12/29/24 12:07 212.939 MLS/HR Furosemide 20 mg DAILY IV 12/26/24 10:00 12/29/24 10:19 20 MG Vancomycin HCl 0 ml @ 0 mls/hr UD IV 12/25/24 16:45 Propofol 100 ml @ 2.709 mls/ hr Q24H IV 12/26/24 00:30 12/29/24 08:09 27.09 MLS/HR Rocuronium [place] 50 mg Q3HP PRN IV 12/26/24 14:15 Vancomycin HCl 250 ml @ 250 mls/hr Q12H IV 12/28/24 12:00 12/29/24 12:07 250 MLS/HR Midazolam HCl 100 ml @ 1 mls/hr Q24H IV 12/28/24 17:45 12/29/24 13:47 15 MLS/HR Examination General Appearance: Sedated, Intubated on mechanical ventilation with a RASS -3 HEENT: Atraumatic, Mucous membranes moist/pink,ET tube in place Respiratory: Clear to auscultation, Normal air movement,on MV, mild crackles on left side Cardiovascular: Regular rate, Normal S1, Normal S2, No murmurs Abdominal: Active bowel sounds, Soft, no distention, no tenderness : Orellana catheter in place, shows hematuria Extremities: No edema, Normal pulses, No tenderness/swelling Skin: A small 2 x 2 cm scab noticed at the heel of left foot, scaly lesions all over body Neuro: sluggish pupils but reactive, gag/cough reflex intact laboratory and microbiology Laboratory Tests 12/29/24 09:35 Test 12/29/24 09:35 Range/Units Serum Glucose 226 H 74-106 mg/dL Microbiology Date/Time Source Procedure Growth Status 12/26/24 09:05 Blood Blood Culture - Preliminary NO GROWTH AFTER 72 HOURS OF INCUBATION. Resulted 12/23/24 12:50 Bronchial Washings Gram Stain - Preliminary Resulted 12/23/24 12:50 Bronchial Washings Respiratory Culture - Preliminary Resulted 12/19/24 16:35 Voided Urine Urine Culture - Final Complete 12/18/24 13:00 Thigh Right Gram Stain - Final Resulted 12/18/24 13:00 Thigh Right Wound Culture - Preliminary Resulted Problem List/Assessment/Plan Problem List/Assessment/Plan Neurology # Acute Metabolic Encephalopathy: Likely secondary to DKA and sepsis. # History of Intracerebral hemorrhage, status post [employer] shunt. # Chronic subdural hematoma # Hx of Epilepsy. - Imaging: Head CT (12/01) showed no new intracranial abnormalities. - Sedation/Neurological Status: RASS score -3 - Discontinue: Quetiapine, Gabapentin, we will resume once patient is extubated - Continue home medications: Keppra, Oxcarbazepine, Valproic acid. - Sedation: Versed, Fentanyl, Propofol, Precedex, Ketamine. 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 - Plan is to do tracheostomy once patient is stabilized as on vent settings as surgery recommendations FiO? ~35% and PEEP ~5; - continue breathing treatments. - Antibiotics per ID Fetroja , Bactrim and added vancomysin today due to positive blood cultures, we ll ordere repeat cultures tomorrow - Bronchoscopy performed on 12/23; awaiting report. Gastrointestinal / Nutrition/ Liver # Possible refeeding syndrome. # Constipation- giving bowel regimen with the lactulose # PUD PPX- Protonix - Blackish oral drainage and high gastric residual noted on 12/12; NG tube discontinued, Dobbhoff tube placed, passed bowel movements today - Thiamine, Folic acid. - Diet- Glucerna 10 ml/hr Genitourinary / Kidney # Acute Kidney Injury Likely secondary to volume depletion; resolved. - Medications: Lasix 20 mg daily. - strict I&O - Avoid Nephrotoxic drugs - Orellana catheter placed on 12/01. Endocrine # Uncontrolled Diabetes Mellitus Type 1. with A1C 10 # Severe DKA Resolved # medication /dietary noncompliance - Insulin sliding scale (ISS). - Lantus 15 given - continuously monitoring blood glucose - counseling on medication adherence we will be given once patient is extubated Metabolic Hypokalemia- resolving Hyponatremia- resolving Hypomagnesemia- resolving Hypophosphatemia- resolving Hyperphosphatemia- resolving - continuously monitoring electrolyte derangements and correcting as needed Musculoskeletal / Skin # Scab on left heel. # New skin eruptions: Xerosis/Seborrheic dermatitis, possible drug eruption or infection-related. # Erythematous/scaly rashes on cheeks, face, and neck; no mucosal involvement - Eucerin cream. - Monitoring eosinophil levels. Psych/Behavioral # Alcohol use disorder. # Possible alcohol withdrawal # Bipolar disorder/depression. 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 # Aspiration pneumonia. # Dental infection # G + bacteremia - ordered repeat blood culture today - Blood and urine cultures (12/01): No growth. - initially patient is on Rocephin, azithromycin and clindamycin discontinued and switched to vancomycin and cefepime again switched to linezolid agains switched to meropenem and currently on below abx - Repeat pancultures 12/24 showed initial blood cultures Gram-positive bacteremia so again added vancomycin along with and bactrim, stopped Fetroja Lines / Tubes / Devices Airway: Intubated via ETT on 12/01. Vascular Access: PICC line placed on 11/07. Drips: Fentanyl, Versed, Precedex, Propofol. Prophylaxis / Supportive Care DVT Prophylaxis: lovenox stopped due to hematuria GI Prophylaxis: Protonix. Nutrition: Glucerna via Dobbhoff tube. Goals of care discussed with the patient family for more than 29 minutes: Full code state Patient care updated to Durga ( friend /next of kin), addressed all concerns. A Long discussion was done with friends and family about patient's condition and they accepted to terminally wean the patient with comfort measures. As patient is a organ donor [facility] was contacted, family was informed about patient being organ donor and understood the plan of care. Critical care time spent excluding procedures 83 minutes Plan discussed with Dr Colvin and RN Plan discussed with: Other (sister, Durga) My Orders My Orders Orders - MATTHEW BUTLER RESIDENT Procedure Category Date Status Time Abg W/ Co-Ox RT 12/29/24 Logged 04:00 Chest Xray 1 View XY 12/29/24 Resulted 04:00 Ct Chest/Ab/Pl W Con- CT 12/29/24 Logged Iv Only 08:55 Dietary Evaluation Review Comments: 1) Initiate thiamin, folic acid, and MVI supplementation d/t recent ETOH abuse 2) If patient remains NPO > 7 days, consider EN/TPN to meet at least 75% of estimated daily needs 3) If GI is preferred, initiate Glucerna 1.2 @ 60 mL/hr goal rate as tolerated. Flush with 150 mL Q6H. TF regimen will provide 1728 kcals, 86g Pro, and 1759 mL free H2O (including flushes) per 24 hrs. Goal rate will meet ~87% estimated daily energy needs and ~72% estimated daily protein needs 4) Advance to 60g CCHO cardiac diet when medically feasible, pending ST approval 5) Collect HbA1c 6) Refer to outpatient RD/[facility] for diabetes education 7) Follow-up with cardiology, pulmonology, and psychiatry 8) Follow-up with workers compensation claims specialist r/t ETOH abuse 9) Continue to monitor I&O, labs, and skin integrity Expected Outcomes/Goals: 1) patient to receive nutritional support within 7 days of NPO status 2) labs and GI symptoms to improve 3) diet to advance 4) follow-up in 2-3 days MATTHEW BUTLER Dec 29, 2024 15:00 MIKAEL COLVIN MD Jan 03, 2025 15:16
[2024-12-29] MEDS: IOHEXOL 300 MG/ML 100ML BOTTLE IJ ONE (16:26)
--- NOTE | 2024-12-29 17:17 | DVH ---
For EXAM: CT CT CHEST/AB/PL W CON- IV ONLY INDICATION: ASSESS ORGAN SUITABILITY FOR [facility] TECHNIQUE: Volumetric multidetector CT images of the chest, abdomen and pelvis were obtained after th e administration of IV contrast. All CT scans at this facility use dose modulation, iterative reconst ruction, and/or weight based dosing when appropriate to reduce radiation dose to as low as reasonably achievable. COMPARISON: XY CHEST XRAY 1 VIEW on DOS: 12/29/24 FINDINGS: LOWER NECK: Unremarkable LYMPH NODES/MEDIASTINUM: Multiple likely reactive subcentimeter mediastinal lymph nodes CARDIOVASCULAR: Normal cardiac size. No pericardial effusion. No aneurysmal dilatation of the great v essels. No significant coronary artery calcifications. LUNG PARENCHYMA/PLEURAL SPACE: Collapse of bilateral lower lobes with superimposed areas of peribronc hovascular thickening and interstitial and alveolar edema. Trace left-sided pleural effusion. Correl ate for aspiration related pneumonitis and/or endobronchial impaction with subsequent partial lung co llapse. Endotracheal tube in place. CHEST WALL: Unremarkable. LIVER: Areas of peripheral enhancement along the right in the left hepatic lobes with possible periph eral discontinuous nodular enhancement which may reflect arterial portal shunt versus cavernous heman gioma GALLBLADDER/BILIARY TREE: Pericholecystic edema/intramural wall edema with mucosal hyperenhancement. No cholelithiasis or choledocholithiasis. SPLEEN: Unremarkable. PANCREAS: Unremarkable. ADRENAL GLANDS: Unremarkable KIDNEYS: No hydronephrosis. BLADDER: Orellana catheter decompression PELVIC ORGANS: Unremarkable. BOWEL/MESENTERY: No CT evidence of bowel obstruction. ASCITES: Absent LYMPHADENOPATHY: No pathologically enlarged lymph nodes by CT size criteria VASCULATURE: No aneurysmal dilatation. ABDOMINAL WALL: Subcutaneous adipose tissue edema. Right ventricular peritoneal shunt catheter with d istal tip extending into the left lower quadrant MUSCULOSKELETAL: No acute fracture or aggressive focal osseous lesion. Multifocal degenerative change of the visualized spine. IMPRESSION: 1. Collapse of bilateral lower lobes with superimposed areas of peribronchovascular thickening and in terstitial and alveolar edema. 2. Trace left-sided pleural effusion. 3. Correlate for aspiration related pneumonitis and/or endobronchial impaction with subsequent partia l lung collapse. 4. Areas of peripheral enhancement along the right in the left hepatic lobes with possible peripheral discontinuous nodular enhancement which may reflect arterial portal shunt versus cavernous hemangiom a. 5. Pericholecystic edema/intramural wall edema with mucosal hyperenhancement. 6. No cholelithiasis or choledocholithiasis.
[2024-12-29] MEDS: NOREPINEPHRINE 8 MG/250ML KIT 250 ML IV SCH (21:00)
--- NOTE | 2024-12-29 23:03 | DVHPN2 ---
Subjective DOS: 12/29/2024 Patient seen and examined at bedside. Sedated, intubated on mechanical ventilator. Overnight events reviewed. Reviewed: Care Plan, H&P, Labs, Medications, Previous Orders, Radiology Changes from previous H/P or p: No Changes Objective Vitals Vital Signs Date Time Temp Pulse Resp B/P (MAP) Pulse Ox O2 Delivery O2 Flow Rate FiO2 12/29/24 22:18 73 12 105/66 (79) 94 40 12/29/24 20:15 97.7 97.7 12/29/24 20:00 Mechanical Ventilator+ Intake/Output Intake and Output 12/29/24 07:00 Intake Total 5627.567 ml Output Total 5700 ml Balance -72.433 ml Intake Oral 100 ml IV Total 5172.567 ml Tube Feeding 355 ml Output Urine Total 5700 ml General Appearance: Other (vent) HEENT: Atraumatic, PERRLA Lungs: Other (On vent; few crackles) Cardiovascular: Other (border tachy) Abdomen: Normal bowel sounds Neuro: Other (sluggish pupils but reactive, gag/cough reflex intact) Medications Current Medications Medications Dose Ordered Sig/Misa Route Start Time Stop Time Status Last Admin Dose Admin Dextrose 50 ml UD PRN IV 12/01/24 13:30 Cancel Insulin Glargine 15 units DAILY SC 12/02/24 10:00 Cancel Dextrose 50 ml UD PRN IV 12/01/24 16:45 Cancel Acetaminophen 650 mg Q6HP PRN PO 12/01/24 16:45 12/26/24 07:33 650 MG Famotidine 20 mg DAILY IV 12/02/24 10:00 12/29/24 10:19 20 MG Ipratropium [place] 0.5 mg Q4HR NEB 12/01/24 18:00 12/29/24 22:18 0.5 MG Albuterol 2.5 mg Q4HPRN PRN NEB 12/01/24 18:00 12/29/24 22:18 2.5 MG Diagnostic Test (Pha) 1 strip Q6HR 12/02/24 18:00 12/29/24 17:51 1 STRIP Insulin Human Regular Q6HR SC 12/02/24 18:00 12/29/24 17:58 6 UNITS Dextrose 50 ml UD PRN IV 12/02/24 15:45 Lorazepam 1 mg Q5MINP PRN IV 12/03/24 01:45 12/03/24 03:43 1 MG Enteral Nutritional Formula 1,000 ml 40ML/HR GT 12/03/24 09:30 12/28/24 02:15 1,000 ML Levetiracetam 100 ml @ 400 mls/hr BID IV 12/03/24 10:00 UNV Lactulose 30 ml Q6HR GT 12/05/24 08:45 12/29/24 18:00 30 ML Carbamazepine 400 mg BID GT 12/05/24 22:00 12/29/24 21:59 400 MG Sodium Chloride 10 ml QSHIFT@10,22 IV 12/07/24 22:00 12/29/24 21:59 10 ML Multi-Ingredient Ointment 1 applic DAILY TOP 12/09/24 10:00 12/29/24 10:20 1 APPLIC Metoclopramide HCl 10 mg Q8HR IV 12/17/24 16:45 12/29/24 21:59 10 MG Levetiracetam 100 ml @ 400 mls/hr BID IV 12/17/24 22:00 12/29/24 21:59 400 MLS/HR Thiamine HCl 100 mg DAILY PO 12/19/24 10:00 12/29/24 10:20 100 MG Fentanyl Citrate 250 ml @ 2.5 mls/hr Q24H IV 12/20/24 02:45 12/29/24 12:21 25 MLS/HR Valproate Sodium 1000 mg/Sodium Chloride 110 ml @ 110 mls/hr BID IV 12/21/24 22:00 12/29/24 23:00 110 MLS/HR Ketamine HCl 500 mg/Sodium Chloride 500 ml @ 5.382 mls/ hr Q24H IV 12/21/24 15:15 12/29/24 21:58 96.876 MLS/HR Trimethoprim/ Sulfamethoxazole 300 ml @ 0 mls/hr PER PHARMACY IV 12/22/24 18:00 Trimethoprim/ Sulfamethoxazole 20 ml/Dextrose 320 ml @ 212.939 mls/hr Q6HR IV 12/24/24 12:00 12/29/24 18:30 212.939 MLS/HR Furosemide 20 mg DAILY IV 12/26/24 10:00 12/29/24 10:19 20 MG Vancomycin HCl 0 ml @ 0 mls/hr UD IV 12/25/24 16:45 Propofol 100 ml @ 2.709 mls/ hr Q24H IV 12/26/24 00:30 12/29/24 18:31 27.09 MLS/HR Rocuronium Aurora 50 mg Q3HP PRN IV 12/26/24 14:15 Vancomycin HCl 250 ml @ 250 mls/hr Q12H IV 12/28/24 12:00 12/29/24 12:07 250 MLS/HR Midazolam HCl 100 ml @ 1 mls/hr Q24H IV 12/28/24 17:45 12/29/24 19:50 15 MLS/HR Norepinephrine Bitartrate 250 ml @ 1.875 mls/ hr Q24H IV 12/29/24 21:00 12/29/24 21:00 5.625 MLS/HR Laboratory Results Laboratory Tests 12/29/24 09:35 Chemistry Test 12/29/24 02:25 12/29/24 09:35 12/29/24 13:07 Albumin 2.7 g/dL (3.2-4.8) L 2.9 g/dL (3.2-4.8) L 2.7 g/dL (3.2-4.8) L Calcium Level 8.3 mg/dL (8.7-10.4) L 8.2 mg/dL (8.7-10.4) L Magnesium Level 1.8 mg/dL (1.6-2.6) 1.9 mg/dL (1.6-2.6) Phosphorus Level 2.3 mg/dL (2.4-5.1) L 2.4 mg/dL (2.4-5.1) Total Protein 6.0 g/dL (5.7-8.2) 6.4 g/dL (5.7-8.2) 5.9 g/dL (5.7-8.2) Coagulation Test 12/29/24 02:25 12/29/24 13:07 Prothrombin Time 11.2 sec (9.3-11.8) 11.4 sec (9.3-11.8) Prothrombin Time INR 1.06 (0.9-1.15) 1.08 (0.9-1.15) Activated Partial Thromboplast Time 26.7 SEC (24.5-34.5) 27.0 SEC (24.5-34.5) Lipid panel Test 12/29/24 02:25 12/29/24 13:07 Lipase 16 U/L (12-53) 16 U/L (12-53) LFT Test 12/29/24 02:25 12/29/24 09:35 12/29/24 13:07 Alanine Aminotransferase (ALT) < 9 U/L (7-40) 9 U/L (7-40) 10 U/L (7-40) Alkaline Phosphatase 179 U/L (46-116) H 188 U/L (46-116) H 197 U/L (46-116) H Aspartate Amino Transferase (AST) < 8 U/L (13-40) L < 8 U/L (13-40) L 9 U/L (13-40) L Direct Bilirubin < 0.1 mg/dL (<0.3) < 0.1 mg/dL (<0.3) Total Bilirubin < 0.2 mg/dL (0.2-1.0) L < 0.2 mg/dL (0.2-1.0) L < 0.2 mg/dL (0.2-1.0) L Urinalysis Test 12/29/24 03:01 Urine Color Colorless (Yellow) Urine Clarity Turbid (Clear) H Urine pH 6.5 (5.0-9.0) Urine Specific [place] 1.006 (1.001-1.035) Urine Protein Negative (Negative) Urine Ketones Negative (Negative) Urine Blood 3+ /uL (Negative) H Urine Nitrite Negative (Negative) Urine Bilirubin Negative (Negative) Urine Urobilinogen Normal mg/dL (Negative) Urine Leukocyte Esterase Trace /uL (Negative) Urine RBC 295 /hpf (0 - 3) Urine Microscopic WBC 20 /HPF (0-3) H Urine Squamous Epithelial Cells None seen /hpf (<5) Urine Bacteria Few /hpf (None Seen) H Urine Mucus Few (None Seen) Urine Glucose Normal mg/dL (Normal) Blood Gas Results Test 12/29/24 06:10 Arterial Blood pH 7.394 (7.350-7.450) FiO2 % 35.0 Microbiology Microbiology Date/Time Source Procedure Growth Status 12/28/24 23:55 Blood Blood Culture - Preliminary Resulted 12/23/24 12:50 Bronchial Washings Gram Stain - Preliminary Resulted 12/23/24 12:50 Bronchial Washings Respiratory Culture - Preliminary Resulted 12/19/24 16:35 Voided Urine Urine Culture - Final Complete 12/18/24 13:00 Thigh Right Gram Stain - Final Resulted 12/18/24 13:00 Thigh Right Wound Culture - Preliminary Resulted Assessment/Plan Assessment/Plan Impression: Acute hypoxic respiratory failure On mechanical ventilator Acute metabolic encephalopathy Pneumonia, likely GNR Bipolar disorder Cannabinoid use Events: Remains on vent support On AC mode; RR 12, VT 400, PEEP 10, FiO2 35% Decrease PEEP to 8, increase FiO2 to 40% Sedated on Versed, Propofol, Ketamine and Fentanyl On Pressors for hemodynamic support Levophed 3 mcg/min Titrate to keep mean arterial pressure greater than 65 mmHg. Continue antibiotics Monitor renal function Monitor electrolytes. Supplement as necessary. Potassium supplementation Monitor ins and outs. Tube feeds for nutritional support Hematuria - Lovenox discontinued Hemoglobin trended down from 8.1 --> 7.6 g/dL Continue to monitor Transfuse if less than 7.0 g/dL. Note, awaiting organ donation. Labs and imaging reviewed. Rest of plan as noted below. Plan: s/p intubation on mechanical ventilator. On AC mode; RR 12, VT 400, PEEP 10-->8, FiO2 35-->40% Titrate FIO2 to keep O2 saturation above 90%. VAP bundle. Daily ABG and CXR while intubated Sedate for ventilator synchrony Continue bronchodilators. Continue antibiotics. Follow up cultures. Accu-Cheks for glycemic monitoring. Insulin PRN. Tube feeds for nutritional support Pressors as necessary for hemodynamic support Titrate to keep mean arterial pressure greater than 65 mmHg. Monitor renal function Monitor electrolytes. Supplement as necessary. Monitor ins and outs. Maintain euvolemia. Tube feeds for nutritional support GI prophylaxis. DVT prophylaxis. Prognosis: Poor given patient's multiple co-morbidities. Condition: Critical Rest of plan per hospitalist and other consultants. A total of 35 minutes of critical care time was spent reviewing the patient record, examining the patient, making a diagnostic and therapeutic plan, discussing this plan with the medical personnel, following up on diagnostic studies and following the patient for clinical stability excluding any and all procedures. At least 50% of this time was spent in direct, [id number] contact. Thank you, LOOPING INSPECTOR Michael, for allowing me to participate in this patient's care. Further recommendations will depend on the patient's clinical course. Please do not hesitate to contact me if you have any questions or concerns. This medical document was created using an electronic medical record system with [employer] dictation system. Although these documentations are being carefully reviewed, there may still be some phonetic and typographical changes. The errors are purely typographical, due to imperfection on the software program, and do not reflect any compromise in the patient's medical care. Plan discussed with: Other (KEYANA Tierney/Shae) My Orders Orders - MIKAEL SCHWARTZ MD Procedure Category Date Status Time Ventilator Orders RT 12/29/24 Transmitted 15:56 Visit Coding Pulmonary Billing Provider: MIKAEL SCHWARTZ MD Date of Service if different f: Dec 29, 2024 Common Visit Codes: 10263-[id number] INP/OBS CARE(HIGH), 04055-[id number] CARE 30-74 MIN MIKAEL SCHWARTZ MD Dec 29, 2024 23:03
[2024-12-30] VITALS (109 sets, daily range): BP systolic 70–273; BP diastolic -17–171; PULSE 70–125; RESP 10–24; TEMP 96.3–100.4; O2SAT 82–100
[2024-12-30 00:38] LABS: Hemoglobin 8.4 g/dL (13.5-17.5); Nucleated Red Blood Cells % 0.0 %
[2024-12-30 00:40] LABS: Hematocrit 25.4 % (41.0-53.0); Mean Corpuscular Hemoglobin 29.2 pg (28.0-32.0); Mean Corpuscular Volume 88.3 fL (80.0-100.0)
[2024-12-30 00:51] LABS: INR 1.05 (0.9-1.15); Partial Thromboplastin Time 26.2 SEC (24.5-34.5); Prothrombin Time 11.1 sec (9.3-11.8)
[2024-12-30 00:55] LABS: Anion Gap 9 (5-15); Carbon Dioxide 27 mmol/L (20-31); Lipase 15 U/L (12-53); Magnesium 1.6 mg/dL (1.6-2.6); Potassium 4.1 mmol/L (3.5-5.1); Sodium 143 mmol/L (136-145); Total Protein 5.9 g/dL (5.7-8.2)
[2024-12-30 00:57] LABS: Alanine Aminotransferase < 9 U/L (7-40); Albumin 2.7 g/dL (3.2-4.8); Alkaline Phosphatase 190 U/L (46-116); BUN/Creatinine Ratio 8.9 (10.0-20.0); Bilirubin, Total < 0.2 mg/dL (0.2-1.0); Blood Urea Nitrogen < 5 mg/dL (9-23); Calcium 8.4 mg/dL (8.7-10.4); Chloride 107 mmol/L (98-107); Creatine Kinase IFCC 26 U/L (46-171); Glucose 200 mg/dL (74-106)
[2024-12-30 00:58] LABS: Amylase < 20 U/L (30-118)
[2024-12-30 01:23] LABS: Bilirubin, Direct < 0.1 mg/dL (<0.3)
[2024-12-30] MEDS: MAGNESIUM SULFATE 1GM/100ML 100 ML IV SCH ×2 (03:58→14:19)
[2024-12-30 05:55] LABS: Hemoglobin 8.4 g/dL (13.5-17.5); Nucleated Red Blood Cells % 0.0 %
[2024-12-30 05:57] LABS: Hematocrit 25.9 % (41.0-53.0); Mean Corpuscular Hemoglobin 28.5 pg (28.0-32.0); Mean Corpuscular Volume 87.3 fL (80.0-100.0)
[2024-12-30 06:11] LABS: INR 1.04 (0.9-1.15); Partial Thromboplastin Time 26.4 SEC (24.5-34.5); Prothrombin Time 11.0 sec (9.3-11.8)
--- NOTE | 2024-12-30 06:11 | DVH ---
CHEST RADIOGRAPH Indication: on vent Technique: Single frontal view of the chest was obtained COMPARISON: XY CHEST XRAY 1 VIEW on DOS: 12/29/24, XY CHEST XRAY 1 VIEW on DOS: 12/28/24, XY CHEST XR AY 1 VIEW on DOS: 12/27/24, XY CHEST XRAY 1 VIEW on DOS: 12/26/24, XY CHEST XRAY 1 VIEW on DOS: 12/25 FINDINGS: Lines and Tubes: Unchanged. Lungs: Stable appearing Moderate Bibasilar pulmonary airspace disease. Pleura: No effusion. No pneumothorax. Cardiomediastinal contours: Unremarkable Bones: Unremarkable IMPRESSION: 1. Stable appearing moderate bibasilar pulmonary airspace disease. 2. Lines and tubes unchanged.
[2024-12-30 06:14] LABS: Magnesium 1.7 mg/dL (1.6-2.6); Total Protein 6.2 g/dL (5.7-8.2)
[2024-12-30 06:23] LABS: Potassium 3.9 mmol/L (3.5-5.1); Sodium 144 mmol/L (136-145)
[2024-12-30 06:25] LABS: Alanine Aminotransferase 9 U/L (7-40); Albumin 2.9 g/dL (3.2-4.8); Alkaline Phosphatase 182 U/L (46-116); Anion Gap 8 (5-15); BUN/Creatinine Ratio 9.1 (10.0-20.0); Bilirubin, Direct < 0.1 mg/dL (<0.3); Bilirubin, Total < 0.2 mg/dL (0.2-1.0); Blood Urea Nitrogen < 5 mg/dL (9-23); Calcium 8.2 mg/dL (8.7-10.4); Carbon Dioxide 28 mmol/L (20-31); Chloride 108 mmol/L (98-107); Creatine Kinase IFCC < 15 U/L (46-171); Glucose 152 mg/dL (74-106)
[2024-12-30 06:40] LABS: Lipase 19 U/L (12-53)
[2024-12-30 06:42] LABS: Amylase < 20 U/L (30-118)
[2024-12-30 09:26] LABS: Base Excess 2.5 mmol/L (-2.0-3.0)
[2024-12-30 13:02] LABS: Hematocrit 23.2 % (41.0-53.0); Hemoglobin 7.9 g/dL (13.5-17.5); Mean Corpuscular Hemoglobin 30.1 pg (28.0-32.0); Mean Corpuscular Volume 88.1 fL (80.0-100.0); Nucleated Red Blood Cells % 0.1 %
--- NOTE | 2024-12-30 13:20 | DVHPNRES ---
Progress Note Date Seen: Dec 30, 2024 Resident Creating Document: MATTHEW BUTLER RESIDENT Medical Necessity Reason Pt with a Central, PICC or Fol: Yes The following are medically ne: Central Line, Orellana Catheter Subjective Review of Systems SAGE BONILLA is a 44-year-old male with past medical history of asthma, CVA, intracerebral hemorrhage, subdural hematoma, (status post EXEC[employer]IVE [employer]IDENT [employer] SAL[employer] shunt, 10 years back), depression, diabetes type 1, hypertension, seizure, bipolar disorder brought to the hospital due to altered mental status. Per patient's roommate, he has not been using his medicine since 1 week, and had developed nausea, vomiting and diarrhea since 3 days, and since 1 day has been altered. Denies fever, loss of consciousness, or any trauma. 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 Lives with friend at home. At baseline mobile, but does not work, on disability Home medication: Quetiapine, sertraline, gabapentin, insulin NPH, levetiracetam, oxcarbazepine, and hydroxyzine, noncompliant with the medicine Patient seen and examined at bedside. Patient is sedated and on mechanical ventilation TV 400 mL, RR 12, FiO2 50%, PEEP 8. Patient is currently on Bactrim and vancomycin. Family meeting conducted today to discuss patient's options, condition. Family and friends agreed to terminally wean the patient and is to go to the OR on Wednesday. Today patients dysuria has improved. As per [facility] patient needs a bronchoscopy has been done today. Patient decided yesterday night to 82%. Is on Levophed 2. Objective vital signs Vital Sign Date Time Temp Pulse Resp B/P (MAP) Pulse Ox O2 Delivery O2 Flow Rate FiO2 12/30/24 12:31 100.4 12/30/24 12:30 108 13 126/83 (97) 94 131/65 (87) 12/30/24 12:00 Mechanical Ventilator+ 50 50 Total Intake and Output 12/29/24 12/29/24 12/30/24 15:00 23:00 07:00 Intake Total 2301.989 ml 1639.518 ml 1839.427 ml Output Total 5100 ml 3550 ml Balance 2301.989 ml -3460.482 ml -1710.573 ml medications Current Medications Medications Dose Ordered Sig/Misa Route Start Time Stop Time Status Last Admin Dose Admin Dextrose 50 ml UD PRN IV 12/01/24 13:30 Cancel Insulin Glargine 15 units DAILY SC 12/02/24 10:00 Cancel Dextrose 50 ml UD PRN IV 12/01/24 16:45 Cancel Acetaminophen 650 mg Q6HP PRN PO 12/01/24 16:45 12/30/24 12:31 650 MG Famotidine 20 mg DAILY IV 12/02/24 10:00 12/30/24 07:54 20 MG Ipratropium Orange 0.5 mg Q4HR NEB 12/01/24 18:00 12/30/24 10:30 0.5 MG Albuterol 2.5 mg Q4HPRN PRN NEB 12/01/24 18:00 12/30/24 10:29 2.5 MG Diagnostic Test (Pha) 1 strip Q6HR 12/02/24 18:00 12/30/24 10:50 1 STRIP Insulin Human Regular Q6HR SC 12/02/24 18:00 12/30/24 10:58 3 UNITS Dextrose 50 ml UD PRN IV 12/02/24 15:45 Lorazepam 1 mg Q5MINP PRN IV 12/03/24 01:45 12/03/24 03:43 1 MG Enteral Nutritional Formula 1,000 ml 40ML/HR GT 12/03/24 09:30 12/30/24 04:02 1,000 ML Levetiracetam 100 ml @ 400 mls/hr BID IV 12/03/24 10:00 UNV Lactulose 30 ml Q6HR GT 12/05/24 08:45 12/29/24 23:28 30 ML Carbamazepine 400 mg BID GT 12/05/24 22:00 12/30/24 07:55 400 MG Sodium Chloride 10 ml QSHIFT@10,22 IV 12/07/24 22:00 12/30/24 07:54 10 ML Multi-Ingredient Ointment 1 applic DAILY TOP 12/09/24 10:00 12/30/24 08:02 1 APPLIC Metoclopramide HCl 10 mg Q8HR IV 12/17/24 16:45 12/30/24 05:51 10 MG Levetiracetam 100 ml @ 400 mls/hr BID IV 12/17/24 22:00 12/30/24 07:53 400 MLS/HR Thiamine HCl 100 mg DAILY PO 12/19/24 10:00 12/30/24 07:54 100 MG Fentanyl Citrate 250 ml @ 2.5 mls/hr Q24H IV 12/20/24 02:45 12/30/24 08:59 27.5 MLS/HR Valproate Sodium 1000 mg/Sodium Chloride 110 ml @ 110 mls/hr BID IV 12/21/24 22:00 12/30/24 07:55 110 MLS/HR Ketamine HCl 500 mg/Sodium Chloride 500 ml @ 5.382 mls/ hr Q24H IV 12/21/24 15:15 12/30/24 09:14 96.876 MLS/HR Trimethoprim/ Sulfamethoxazole 300 ml @ 0 mls/hr PER PHARMACY IV 12/22/24 18:00 Trimethoprim/ Sulfamethoxazole 20 ml/Dextrose 320 ml @ 212.939 mls/hr Q6HR IV 12/24/24 12:00 12/30/24 12:28 212.939 MLS/HR Furosemide 20 mg DAILY IV 12/26/24 10:00 12/30/24 07:53 20 MG Vancomycin HCl 0 ml @ 0 mls/hr UD IV 12/25/24 16:45 Propofol 100 ml @ 2.709 mls/ hr Q24H IV 12/26/24 00:30 12/30/24 10:43 27.09 MLS/HR Rocuronium Orange 50 mg Q3HP PRN IV 12/26/24 14:15 Vancomycin HCl 250 ml @ 250 mls/hr Q12H IV 12/28/24 12:00 12/29/24 23:29 250 MLS/HR Midazolam HCl 100 ml @ 1 mls/hr Q24H IV 12/28/24 17:45 12/30/24 12:24 15 MLS/HR Norepinephrine Bitartrate 250 ml @ 1.875 mls/ hr Q24H IV 12/29/24 21:00 12/29/24 21:00 5.625 MLS/HR Examination General Appearance: Sedated, Intubated on mechanical ventilation with a RASS -3 HEENT: Atraumatic, Mucous membranes moist/pink,ET tube in place Respiratory: Clear to auscultation, Normal air movement,on MV, mild crackles on left side Cardiovascular: Regular rate, Normal S1, Normal S2, No murmurs Abdominal: Active bowel sounds, Soft, no distention, no tenderness : Orellana catheter in place, shows hematuria Extremities: No edema, Normal pulses, No tenderness/swelling Skin: A small 2 x 2 cm scab noticed at the heel of left foot, scaly lesions all over body Neuro: sluggish pupils but reactive, gag/cough reflex intact laboratory and microbiology Laboratory Tests 12/30/24 12:22 Test 12/30/24 12:22 Range/Units Serum Glucose Pending Microbiology Date/Time Source Procedure Growth Status 12/28/24 23:55 Blood Blood Culture - Preliminary Resulted 12/23/24 12:50 Bronchial Washings Gram Stain - Preliminary Resulted 12/23/24 12:50 Bronchial Washings Respiratory Culture - Preliminary Resulted 12/19/24 16:35 Voided Urine Urine Culture - Final Complete 12/18/24 13:00 Thigh Right Gram Stain - Final Resulted 12/18/24 13:00 Thigh Right Wound Culture - Preliminary Resulted Problem List/Assessment/Plan Problem List/Assessment/Plan Neurology # Acute Metabolic Encephalopathy: Likely secondary to DKA and sepsis. # History of Intracerebral hemorrhage, status post EXEC[employer]IVE [employer] shunt. # Chronic subdural hematoma # Hx of Epilepsy. - Imaging: Head CT (12/01) showed no new intracranial abnormalities. - Sedation/Neurological Status: RASS score -3 - Discontinue: Quetiapine, Gabapentin, we will resume once patient is extubated - Continue home medications: Keppra, Oxcarbazepine, Valproic acid. - Sedation: Versed, Fentanyl, Propofol, Precedex, Ketamine. 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 - Plan is to do tracheostomy once patient is stabilized as on vent settings as surgery recommendations FiO? ~35% and PEEP ~5; - continue breathing treatments. - Antibiotics per ID Fetroja , Bactrim and added vancomysin today due to positive blood cultures, we ll ordere repeat cultures tomorrow - Bronchoscopy performed on 12/23; - bronchoscopy done on 12/30/2024 Gastrointestinal / Nutrition/ Liver # Possible refeeding syndrome. # Constipation- giving bowel regimen with the lactulose # PUD PPX- Protonix - Blackish oral drainage and high gastric residual noted on 12/12; NG tube discontinued, Dobbhoff tube placed, passed bowel movements today - Thiamine, Folic acid. - Diet- Glucerna 10 ml/hr Genitourinary / Kidney # Acute Kidney Injury Likely secondary to volume depletion; resolved. - Medications: Lasix 20 mg daily. - strict I&O - Avoid Nephrotoxic drugs - Orellana catheter placed on 12/01. Endocrine # Uncontrolled Diabetes Mellitus Type 1. with A1C 10 # Severe DKA Resolved # medication /dietary noncompliance - Insulin sliding scale (ISS). - Lantus 15 given - continuously monitoring blood glucose - counseling on medication adherence we will be given once patient is extubated Metabolic Hypokalemia- resolving Hyponatremia- resolving Hypomagnesemia- resolving Hypophosphatemia- resolving Hyperphosphatemia- resolving - continuously monitoring electrolyte derangements and correcting as needed Musculoskeletal / Skin # Scab on left heel. # New skin eruptions: Xerosis/Seborrheic dermatitis, possible drug eruption or infection-related. # Erythematous/scaly rashes on cheeks, face, and neck; no mucosal involvement - Eucerin cream. - Monitoring eosinophil levels. Psych/Behavioral # Alcohol use disorder. # Possible alcohol withdrawal # Bipolar disorder/depression. 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 # Aspiration pneumonia. # Dental infection # G + bacteremia - ordered repeat blood culture today - Blood and urine cultures (12/01): No growth. - initially patient is on Rocephin, azithromycin and clindamycin discontinued and switched to vancomycin and cefepime again switched to linezolid agains switched to meropenem and currently on below abx - Repeat pancultures 12/24 showed initial blood cultures Gram-positive bacteremia so again added vancomycin along with and bactrim, stopped Fetroja Lines / Tubes / Devices Airway: Intubated via ETT on 12/01. Vascular Access: PICC line placed on 11/07. Drips: Fentanyl, Versed, Precedex, Propofol. Prophylaxis / Supportive Care DVT Prophylaxis: lovenox stopped due to hematuria GI Prophylaxis: Protonix. Nutrition: Glucerna via Dobbhoff tube. Goals of care discussed with the patient family for more than 29 minutes: Full code state Patient care updated to Durga ( friend /next of kin), addressed all concerns. A Long discussion was done with friends and family about patient's condition and they accepted to terminally wean the patient with comfort measures. As patient is a organ donor [facility] was contacted, family was informed about patient being organ donor and understood the plan of care. Critical care time spent excluding procedures 83 minutes Plan discussed with Dr Colvin and RN Plan discussed with: Other (Sister) My Orders My Orders Orders - MATTHEW BUTLER RESIDENT Procedure Category Date Status Time Chest Xray 1 View XY 12/30/24 Resulted 04:00 Abg W/ Co-Ox RT 12/30/24 Logged 04:00 Dietary Evaluation Review Comments: 1) Initiate thiamin, folic acid, and MVI supplementation d/t recent ETOH abuse 2) If patient remains NPO > 7 days, consider EN/TPN to meet at least 75% of estimated daily needs 3) If GI is preferred, initiate Glucerna 1.2 @ 60 mL/hr goal rate as tolerated. Flush with 150 mL Q6H. TF regimen will provide 1728 kcals, 86g Pro, and 1759 mL free H2O (including flushes) per 24 hrs. Goal rate will meet ~87% estimated daily energy needs and ~72% estimated daily protein needs 4) Advance to 60g CCHO cardiac diet when medically feasible, pending ST approval 5) Collect HbA1c 6) Refer to outpatient RD/[facility] for diabetes education 7) Follow-up with cardiology, pulmonology, and psychiatry 8) Follow-up with social worker health services r/t ETOH abuse 9) Continue to monitor I&O, labs, and skin integrity Expected Outcomes/Goals: 1) patient to receive nutritional support within 7 days of NPO status 2) labs and GI symptoms to improve 3) diet to advance 4) follow-up in 2-3 days MATTHEW BUTLER Dec 30, 2024 13:20 MIKAEL COLVIN MD Jan 03, 2025 15:16
[2024-12-30 13:22] LABS: INR 1.06 (0.9-1.15); Partial Thromboplastin Time 26.3 SEC (24.5-34.5); Prothrombin Time 11.2 sec (9.3-11.8)
[2024-12-30 13:27] LABS: Anion Gap 10 (5-15); Carbon Dioxide 25 mmol/L (20-31); Chloride 106 mmol/L (98-107); Lipase 18 U/L (12-53); Potassium 3.5 mmol/L (3.5-5.1); Sodium 141 mmol/L (136-145)
[2024-12-30 13:28] LABS: Creatine Kinase IFCC 37 U/L (46-171)
[2024-12-30 13:30] LABS: Alanine Aminotransferase < 9 U/L (7-40); Albumin 2.5 g/dL (3.2-4.8); Alkaline Phosphatase 161 U/L (46-116); Amylase < 20 U/L (30-118); BUN/Creatinine Ratio 10.4 (10.0-20.0); Bilirubin, Total < 0.2 mg/dL (0.2-1.0); Blood Urea Nitrogen < 5 mg/dL (9-23); Calcium 7.2 mg/dL (8.7-10.4); Glucose 163 mg/dL (74-106); Magnesium 1.5 mg/dL (1.6-2.6); Total Protein 5.5 g/dL (5.7-8.2)
[2024-12-30] MEDS: ROCURONIUM 10MG/ML 10ML VIAL IV ONE ×2 (14:00→14:28)
[2024-12-30] MEDS: POTASSIUM CHL 20MEQ/100ML 100 ML IV SCH (14:24)
[2024-12-30 14:29] LABS: Bilirubin, Direct < 0.1 mg/dL (<0.3)
[2024-12-30] MEDS: VASOPRESSIN 20 UNITS in SODIUM CHL 0.9% 99 ML IV SCH (16:00)
[2024-12-30 18:42] LABS: Hemoglobin 7.3 g/dL (13.5-17.5); Nucleated Red Blood Cells % 0.1 %
[2024-12-30 18:44] LABS: Hematocrit 22.1 % (41.0-53.0); Mean Corpuscular Hemoglobin 29.2 pg (28.0-32.0); Mean Corpuscular Volume 87.9 fL (80.0-100.0)
[2024-12-30 18:50] LABS: INR 1.04 (0.9-1.15); Partial Thromboplastin Time 24.1 SEC (24.5-34.5); Prothrombin Time 11.0 sec (9.3-11.8)
[2024-12-30 18:51] LABS: Anion Gap 7 (5-15); Carbon Dioxide 28 mmol/L (20-31); Chloride 103 mmol/L (98-107); Potassium 4.5 mmol/L (3.5-5.1); Sodium 138 mmol/L (136-145)
[2024-12-30 18:54] LABS: Alanine Aminotransferase < 9 U/L (7-40); Albumin 2.6 g/dL (3.2-4.8); Alkaline Phosphatase 167 U/L (46-116); BUN/Creatinine Ratio 8.2 (10.0-20.0); Bilirubin, Direct < 0.1 mg/dL (<0.3); Bilirubin, Total < 0.2 mg/dL (0.2-1.0); Blood Urea Nitrogen < 5 mg/dL (9-23); Calcium 7.7 mg/dL (8.7-10.4); Creatine Kinase IFCC < 15 U/L (46-171); Glucose 266 mg/dL (74-106); Total Protein 5.7 g/dL (5.7-8.2)
--- NOTE | 2024-12-30 19:50 | DVHNC2 ---
Procedure - Bronchoscopy procedure note: Indications: Bilateral lower lobe atelectasis, Possible mucous plugging. Medicines: See SIGNALLING AND COMMUNICATIONS ENGINEER notes. Complications: None Date of service: 12/30/24 Time out: 1345 pm Procedure: Patient medications and allergies reviewed. The risks and benefits of the procedure and the sedation options and risk were discussed with the patient's healthcare proxy. All questions were answered and informed consent was obtained. Patient identification and proposed procedure were verified prior to the procedure by the physician, and a nurse, and the respiratory therapist in ICU room. The heart rate, respiratory rate, oxygen saturations, blood pressure, adequacy of pulmonary ventilation, and response to care were monitored throughout the procedure. The physical status of the patient was reassessed after the procedure. After obtaining informed consent, the bronchoscope was introduced through the endotracheal tube and advanced into the trachea bronchial tree of both lungs. The procedure was accomplished without difficulty. The patient tolerated the procedure well. Findings: The trachea is in normal caliber. The laci is sharp. The tracheobronchial tree of the right lung was examined to at least the first subsegmental level. The bronchial mucosa and anatomy in the right lung are normal. There are no endobronchial lesions. There was copious whitish secretions from right main stem bronchus onward throughout R4-R10. Right middle lobe (RML) Bronchoalveolar lavage (BAL) obtained. RML BAL sent for gram stain and culture. The left upper lobe, lingula, and left lower lobe were examined to at least the first subsegmental level. Bronchial mucosa and anatomy in the left upper lobe and lingula are normal. There were no endobronchial lesions. There was copious whitish secretions from left main stem bronchus onward throughout L1-L10. Mucous plugging removed from L6-L10. There was no active bleeding at the completion of the procedure. Estimated blood loss: Less than 5 mL. Impression: Bilateral lower lobe atelectasis due to mucous plugging Mucous plugging from L6-L10 and R3-R10 RML BAL performed Recommendation: Follow-up RML BAL results. Procedure codes: 37064, bronchoscopy, rigid and flexible, including fluoroscopic guidance, one performed; with bronchial endobronchial broncho-alveolar lavage, single or multiple sites Visit Coding Pulmonary Billing Provider: MIKAEL SCHWARTZ MD Date of Service if different f: Dec 30, 2024 Common Visit Codes: PROCEDURE ONLY Procedure Codes: [id number] (96732 - Bronchoscopy) MIKAEL SCHWARTZ MD Dec 30, 2024 19:50
--- NOTE | 2024-12-30 21:16 | DVHPN2 ---
Subjective DOS: 12/30/2024 Patient seen and examined at bedside. Sedated, intubated on mechanical ventilator. Overnight events reviewed. Reviewed: Care Plan, H&P, Labs, Medications, Previous Orders, Radiology Changes from previous H/P or p: No Changes Objective Vitals Vital Signs Date Time Temp Pulse Resp B/P (MAP) Pulse Ox O2 Delivery O2 Flow Rate FiO2 12/30/24 20:13 71 15 110/77 (88) 95 50 12/30/24 18:30 98.2 208.8 12/30/24 18:13 Mechanical Ventilator+ Intake/Output Intake and Output 12/30/24 07:00 Intake Total 5780.934 ml Output Total 8650 ml Balance -2869.066 ml Intake Oral 260 ml IV Total 5173.934 ml Tube Feeding 347 ml Output Urine Total 8650 ml General Appearance: Other (vent) HEENT: Atraumatic, PERRLA Lungs: Other (On vent; few crackles) Cardiovascular: Other (border tachy) Abdomen: Normal bowel sounds Neuro: Other (sluggish pupils but reactive, gag/cough reflex intact) Medications Current Medications Medications Dose Ordered Sig/Misa Route Start Time Stop Time Status Last Admin Dose Admin Dextrose 50 ml UD PRN IV 12/01/24 13:30 Cancel Insulin Glargine 15 units DAILY SC 12/02/24 10:00 Cancel Dextrose 50 ml UD PRN IV 12/01/24 16:45 Cancel Acetaminophen 650 mg Q6HP PRN PO 12/01/24 16:45 12/30/24 12:31 650 MG Famotidine 20 mg DAILY IV 12/02/24 10:00 12/30/24 07:54 20 MG Ipratropium [place] 0.5 mg Q4HR NEB 12/01/24 18:00 12/30/24 18:16 0.5 MG Albuterol 2.5 mg Q4HPRN PRN NEB 12/01/24 18:00 12/30/24 18:16 2.5 MG Diagnostic Test (Pha) 1 strip Q6HR 12/02/24 18:00 12/30/24 14:30 1 STRIP Insulin Human Regular Q6HR SC 12/02/24 18:00 12/30/24 17:21 6 UNITS Dextrose 50 ml UD PRN IV 12/02/24 15:45 Lorazepam 1 mg Q5MINP PRN IV 12/03/24 01:45 12/03/24 03:43 1 MG Enteral Nutritional Formula 1,000 ml 40ML/HR GT 12/03/24 09:30 12/30/24 04:02 1,000 ML Levetiracetam 100 ml @ 400 mls/hr BID IV 12/03/24 10:00 UNV Lactulose 30 ml Q6HR GT 12/05/24 08:45 12/29/24 23:28 30 ML Carbamazepine 400 mg BID GT 12/05/24 22:00 12/30/24 07:55 400 MG Sodium Chloride 10 ml QSHIFT@10,22 IV 12/07/24 22:00 12/30/24 07:54 10 ML Multi-Ingredient Ointment 1 applic DAILY TOP 12/09/24 10:00 12/30/24 08:02 1 APPLIC Metoclopramide HCl 10 mg Q8HR IV 12/17/24 16:45 12/30/24 05:51 10 MG Levetiracetam 100 ml @ 400 mls/hr BID IV 12/17/24 22:00 12/30/24 07:53 400 MLS/HR Thiamine HCl 100 mg DAILY PO 12/19/24 10:00 12/30/24 07:54 100 MG Fentanyl Citrate 250 ml @ 2.5 mls/hr Q24H IV 12/20/24 02:45 12/30/24 18:18 27.5 MLS/HR Valproate Sodium 1000 mg/Sodium Chloride 110 ml @ 110 mls/hr BID IV 12/21/24 22:00 12/30/24 07:55 110 MLS/HR Ketamine HCl 500 mg/Sodium Chloride 500 ml @ 5.382 mls/ hr Q24H IV 12/21/24 15:15 12/30/24 20:45 96.876 MLS/HR Trimethoprim/ Sulfamethoxazole 300 ml @ 0 mls/hr PER PHARMACY IV 12/22/24 18:00 Trimethoprim/ Sulfamethoxazole 20 ml/Dextrose 320 ml @ 212.939 mls/hr Q6HR IV 12/24/24 12:00 12/30/24 17:37 212.939 MLS/HR Furosemide 20 mg DAILY IV 12/26/24 10:00 12/30/24 07:53 20 MG Vancomycin HCl 0 ml @ 0 mls/hr UD IV 12/25/24 16:45 Propofol 100 ml @ 2.709 mls/ hr Q24H IV 12/26/24 00:30 12/30/24 18:10 27.09 MLS/HR Rocuronium [place] 50 mg Q3HP PRN IV 12/26/24 14:15 Midazolam HCl 100 ml @ 1 mls/hr Q24H IV 12/28/24 17:45 12/30/24 18:10 15 MLS/HR Norepinephrine Bitartrate 250 ml @ 1.875 mls/ hr Q24H IV 12/29/24 21:00 12/29/24 21:00 5.625 MLS/HR Vasopressin 20 units/Sodium Chloride 100 ml @ 9 mls/hr Q11H7M IV 12/30/24 15:00 12/30/24 16:00 9 MLS/HR Vancomycin HCl 250 ml @ 200 mls/hr Q10H IV 12/30/24 22:00 Laboratory Results Laboratory Tests 12/30/24 18:08 Chemistry Test 12/30/24 00:13 12/30/24 05:41 12/30/24 12:22 12/30/24 18:08 Albumin 2.7 g/dL (3.2-4.8) L 2.9 g/dL (3.2-4.8) L 2.5 g/dL (3.2-4.8) L 2.6 g/dL (3.2-4.8) L Calcium Level 8.4 mg/dL (8.7-10.4) L 8.2 mg/dL (8.7-10.4) L 7.2 mg/dL (8.7-10.4) L 7.7 mg/dL (8.7-10.4) L Magnesium Level 1.6 mg/dL (1.6-2.6) 1.7 mg/dL (1.6-2.6) 1.5 mg/dL (1.6-2.6) L Phosphorus Level 2.9 mg/dL (2.4-5.1) 2.4 mg/dL (2.4-5.1) 2.3 mg/dL (2.4-5.1) L Total Protein 5.9 g/dL (5.7-8.2) 6.2 g/dL (5.7-8.2) 5.5 g/dL (5.7-8.2) L 5.7 g/dL (5.7-8.2) Coagulation Test 12/30/24 00:13 12/30/24 05:41 12/30/24 12:22 12/30/24 18:08 Prothrombin Time 11.1 sec (9.3-11.8) 11.0 sec (9.3-11.8) 11.2 sec (9.3-11.8) 11.0 sec (9.3-11.8) Prothrombin Time INR 1.05 (0.9-1.15) 1.04 (0.9-1.15) 1.06 (0.9-1.15) 1.04 (0.9-1.15) Activated Partial Thromboplast Time 26.2 SEC (24.5-34.5) 26.4 SEC (24.5-34.5) 26.3 SEC (24.5-34.5) 24.1 SEC (24.5-34.5) L Lipid panel Test 12/30/24 00:13 12/30/24 05:41 12/30/24 12:22 Lipase 15 U/L (12-53) 19 U/L (12-53) 18 U/L (12-53) LFT Test 12/30/24 00:13 12/30/24 05:41 12/30/24 12:22 12/30/24 18:08 Alanine Aminotransferase (ALT) < 9 U/L (7-40) 9 U/L (7-40) < 9 U/L (7-40) < 9 U/L (7-40) Alkaline Phosphatase 190 U/L (46-116) H 182 U/L (46-116) H 161 U/L (46-116) H 167 U/L (46-116) H Aspartate Amino Transferase (AST) 9 U/L (13-40) L 10 U/L (13-40) L 9 U/L (13-40) L 11 U/L (13-40) L Direct Bilirubin < 0.1 mg/dL (<0.3) < 0.1 mg/dL (<0.3) < 0.1 mg/dL (<0.3) < 0.1 mg/dL (<0.3) Total Bilirubin < 0.2 mg/dL (0.2-1.0) L < 0.2 mg/dL (0.2-1.0) L < 0.2 mg/dL (0.2-1.0) L < 0.2 mg/dL (0.2-1.0) L Urinalysis Test 12/29/24 03:01 Urine Color Colorless (Yellow) Urine Clarity Turbid (Clear) H Urine pH 6.5 (5.0-9.0) Urine Specific [place] 1.006 (1.001-1.035) Urine Protein Negative (Negative) Urine Ketones Negative (Negative) Urine Blood 3+ /uL (Negative) H Urine Nitrite Negative (Negative) Urine Bilirubin Negative (Negative) Urine Urobilinogen Normal mg/dL (Negative) Urine Leukocyte Esterase Trace /uL (Negative) Urine RBC 295 /hpf (0 - 3) Urine Microscopic WBC 20 /HPF (0-3) H Urine Squamous Epithelial Cells None seen /hpf (<5) Urine Bacteria Few /hpf (None Seen) H Urine Mucus Few (None Seen) Urine Glucose Normal mg/dL (Normal) Blood Gas Results Test 12/30/24 07:47 Arterial Blood pH 7.435 (7.350-7.450) FiO2 % 40.0 Microbiology Microbiology Date/Time Source Procedure Growth Status 12/29/24 03:01 Urine - [place] Urine Culture - Preliminary Resulted 12/29/24 02:49 Sputum Gram Stain - Final Resulted 12/29/24 02:49 Sputum Respiratory Culture - Preliminary Resulted 12/28/24 23:55 Blood Blood Culture - Preliminary Resulted 12/18/24 13:00 Thigh Right Gram Stain - Final Resulted 12/18/24 13:00 Thigh Right Wound Culture - Preliminary Resulted Assessment/Plan Assessment/Plan Impression: Acute hypoxic respiratory failure On mechanical ventilator Acute metabolic encephalopathy Pneumonia, likely GNR Bipolar disorder Cannabinoid use Events: Remains on vent support On AC mode; RR 12, VT 400, PEEP 8, FiO2 50% Sedated on Propofol, Fentanyl On Precedex drip. On Pressors for hemodynamic support Levophed 2 mcg/min Titrate to keep mean arterial pressure greater than 65 mmHg. Continue antibiotics Tube feeds for nutritional support Hematuria has resolved. Lovenox on hold. Monitor hemoglobin closely Transfuse if less than 7.0 g/dL. Monitor renal function Monitor electrolytes. Supplement as necessary. Magnesium supplementation Note, awaiting organ donation. Labs and imaging reviewed. Rest of plan as noted below. Plan: s/p intubation on mechanical ventilator. On AC mode; RR 12, VT 400, PEEP 8, FiO2 50% Titrate FIO2 to keep O2 saturation above 90%. VAP bundle. Daily ABG and CXR while intubated Sedate for ventilator synchrony Continue bronchodilators. Continue antibiotics. Follow up cultures. Accu-Cheks for glycemic monitoring. Insulin PRN. Tube feeds for nutritional support Pressors as necessary for hemodynamic support Titrate to keep mean arterial pressure greater than 65 mmHg. Monitor renal function Monitor electrolytes. Supplement as necessary. Monitor ins and outs. Maintain euvolemia. Tube feeds for nutritional support Monitor hemoglobin Transfuse if less than 7.0 g/dL. GI prophylaxis. DVT prophylaxis. Prognosis: Poor given patient's multiple co-morbidities. Condition: Critical Rest of plan per hospitalist and other consultants. A total of 35 minutes of critical care time was spent reviewing the patient record, examining the patient, making a diagnostic and therapeutic plan, discussing this plan with the medical personnel, following up on diagnostic studies and following the patient for clinical stability excluding any and all procedures. At least 50% of this time was spent in direct, [id number] contact. Thank you, SHEILA Rodriguez, for allowing me to participate in this patient's care. Further recommendations will depend on the patient's clinical course. Please do not hesitate to contact me if you have any questions or concerns. This medical document was created using an electronic medical record system with [facility] dictation system. Although these documentations are being carefully reviewed, there may still be some phonetic and typographical changes. The errors are purely typographical, due to imperfection on the software program, and do not reflect any compromise in the patient's medical care. Plan discussed with: Other (KEYANA Gale) My Orders Orders - MIKAEL SCHWARTZ MD Procedure Category Date Status Time Imaging Transfer ORDERS 12/30/24 Transmitted Request 16:36 Complete Blood Count LAB 12/31/24 Verified 00:00 Complete Blood Count LAB 12/31/24 Verified 06:00 Complete Blood Count LAB 12/31/24 Verified 12:00 Complete Blood Count LAB 12/31/24 Verified 18:00 Complete Blood Count LAB 01/01/25 Verified 00:00 Complete Blood Count LAB 01/01/25 Verified 06:00 Complete Blood Count LAB 01/01/25 Verified 12:00 Comprehensive LAB 12/31/24 Verified Metabolic Panel 00:00 Comprehensive LAB 12/31/24 Verified Metabolic Panel 06:00 Comprehensive LAB 12/31/24 Verified Metabolic Panel 12:00 Comprehensive LAB 12/31/24 Verified Metabolic Panel 18:00 Comprehensive LAB 01/01/25 Verified Metabolic Panel 00:00 Comprehensive LAB 01/01/25 Verified Metabolic Panel 06:00 Comprehensive LAB 01/01/25 Verified Metabolic Panel 12:00 Bilirubin, Direct LAB 12/31/24 Verified 00:00 Bilirubin, Direct LAB 12/31/24 Verified 06:00 Bilirubin, Direct LAB 12/31/24 Verified 12:00 Bilirubin, Direct LAB 12/31/24 Verified 18:00 Bilirubin, Direct LAB 01/01/25 Verified 00:00 Bilirubin, Direct LAB 01/01/25 Verified 06:00 Bilirubin, Direct LAB 01/01/25 Verified 12:00 Magnesium LAB 12/31/24 Verified 00:00 Magnesium LAB 12/31/24 Verified 06:00 Magnesium LAB 12/31/24 Verified 12:00 Magnesium LAB 12/31/24 Verified 18:00 Magnesium LAB 01/01/25 Verified 00:00 Magnesium LAB 01/01/25 Verified 06:00 Magnesium LAB 01/01/25 Verified 12:00 Phosphorus LAB 12/31/24 Verified 00:00 Phosphorus LAB 12/31/24 Verified 06:00 Phosphorus LAB 12/31/24 Verified 12:00 Phosphorus LAB 12/31/24 Verified 18:00 Phosphorus LAB 01/01/25 Verified 00:00 Phosphorus LAB 01/01/25 Verified 06:00 Phosphorus LAB 01/01/25 Verified 12:00 PTPTT LAB 12/31/24 Verified 00:00 PTPTT LAB 12/31/24 Verified 06:00 PTPTT LAB 12/31/24 Verified 12:00 PTPTT LAB 12/31/24 Verified 18:00 PTPTT LAB 01/01/25 Verified 00:00 PTPTT LAB 01/01/25 Verified 06:00 PTPTT LAB 01/01/25 Verified 12:00 Urinalysis LAB 12/31/24 Uncollected 00:00 Urinalysis LAB 12/31/24 Uncollected 12:00 Urinalysis LAB 01/01/25 Uncollected 00:00 Urinalysis LAB 01/01/25 Uncollected 12:00 Visit Coding Pulmonary Billing Provider: MIKAEL SCHWARTZ MD Date of Service if different f: Dec 30, 2024 Common Visit Codes: [id number] INP/OBS CARE(HIGH), [id number] CARE 30-74 MIN MIKAEL SCHWARTZ MD Dec 30, 2024 21:16
[2024-12-30] MEDS: VANCOMYCIN 1GM/250ML KIT 250 ML IV SCH (22:08)
--- NOTE | 2024-12-30 23:54 | DVHPN2 ---
Consult Progress Note Date Seen: Dec 29, 2024 Subjective Patient reports: Feels better (improving elukocy) Objective vital signs Vital Sign Date Time Temp Pulse Resp B/P (MAP) Pulse Ox O2 Delivery O2 Flow Rate FiO2 12/30/24 22:10 73 15 107/74 (85) 94 50 12/30/24 20:00 Mechanical Ventilator+ 12/30/24 18:30 98.2 208.8 Total Intake and Output 12/29/24 12/29/24 12/30/24 15:00 23:00 07:00 Intake Total 2301.989 ml 1639.518 ml 1839.427 ml Output Total 5100 ml 3550 ml Balance 2301.989 ml -3460.482 ml -1710.573 ml medications Current Medications Medications Dose Ordered Sig/Misa Route Start Time Stop Time Status Last Admin Dose Admin Dextrose 50 ml UD PRN IV 12/01/24 13:30 Cancel Insulin Glargine 15 units DAILY SC 12/02/24 10:00 Cancel Dextrose 50 ml UD PRN IV 12/01/24 16:45 Cancel Acetaminophen 650 mg Q6HP PRN PO 12/01/24 16:45 12/30/24 12:31 650 MG Famotidine 20 mg DAILY IV 12/02/24 10:00 12/30/24 07:54 20 MG Ipratropium [place] 0.5 mg Q4HR NEB 12/01/24 18:00 12/30/24 22:10 0.5 MG Albuterol 2.5 mg Q4HPRN PRN NEB 12/01/24 18:00 12/30/24 22:10 2.5 MG Diagnostic Test (Pha) 1 strip Q6HR 12/02/24 18:00 12/30/24 14:30 1 STRIP Insulin Human Regular Q6HR SC 12/02/24 18:00 12/30/24 17:21 6 UNITS Dextrose 50 ml UD PRN IV 12/02/24 15:45 Lorazepam 1 mg Q5MINP PRN IV 12/03/24 01:45 12/03/24 03:43 1 MG Enteral Nutritional Formula 1,000 ml 40ML/HR GT 12/03/24 09:30 12/30/24 04:02 1,000 ML Levetiracetam 100 ml @ 400 mls/hr BID IV 12/03/24 10:00 UNV Lactulose 30 ml Q6HR GT 12/05/24 08:45 12/29/24 23:28 30 ML Carbamazepine 400 mg BID GT 12/05/24 22:00 12/30/24 22:08 400 MG Sodium Chloride 10 ml QSHIFT@10,22 IV 12/07/24 22:00 12/30/24 22:08 10 ML Multi-Ingredient Ointment 1 applic DAILY TOP 12/09/24 10:00 12/30/24 08:02 1 APPLIC Metoclopramide HCl 10 mg Q8HR IV 12/17/24 16:45 12/30/24 22:08 10 MG Levetiracetam 100 ml @ 400 mls/hr BID IV 12/17/24 22:00 12/30/24 22:07 400 MLS/HR Thiamine HCl 100 mg DAILY PO 12/19/24 10:00 12/30/24 07:54 100 MG Fentanyl Citrate 250 ml @ 2.5 mls/hr Q24H IV 12/20/24 02:45 12/30/24 18:18 27.5 MLS/HR Valproate Sodium 1000 mg/Sodium Chloride 110 ml @ 110 mls/hr BID IV 12/21/24 22:00 12/30/24 22:06 110 MLS/HR Ketamine HCl 500 mg/Sodium Chloride 500 ml @ 5.382 mls/ hr Q24H IV 12/21/24 15:15 12/30/24 20:45 96.876 MLS/HR Trimethoprim/ Sulfamethoxazole 300 ml @ 0 mls/hr PER PHARMACY IV 12/22/24 18:00 Trimethoprim/ Sulfamethoxazole 20 ml/Dextrose 320 ml @ 212.939 mls/hr Q6HR IV 12/24/24 12:00 12/30/24 17:37 212.939 MLS/HR Furosemide 20 mg DAILY IV 12/26/24 10:00 12/30/24 07:53 20 MG Vancomycin HCl 0 ml @ 0 mls/hr UD IV 12/25/24 16:45 Propofol 100 ml @ 2.709 mls/ hr Q24H IV 12/26/24 00:30 12/30/24 22:09 21.672 MLS/HR Rocuronium [place] 50 mg Q3HP PRN IV 12/26/24 14:15 Midazolam HCl 100 ml @ 1 mls/hr Q24H IV 12/28/24 17:45 12/30/24 18:10 15 MLS/HR Norepinephrine Bitartrate 250 ml @ 1.875 mls/ hr Q24H IV 12/29/24 21:00 12/29/24 21:00 5.625 MLS/HR Vasopressin 20 units/Sodium Chloride 100 ml @ 9 mls/hr Q11H7M IV 12/30/24 15:00 12/30/24 22:07 9 MLS/HR Vancomycin HCl 250 ml @ 200 mls/hr Q10H IV 12/30/24 22:00 12/30/24 22:08 200 MLS/HR laboratory and microbiology Laboratory Tests 12/30/24 18:08 Test 12/30/24 18:08 Range/Units Serum Glucose 266 #H 74-106 mg/dL Problem List/Assessment/Plan Problem List/Assessment/Plan patient seen at bedside full note to follow, worsening fevers, FiO2 improved to 40%< peep 8 on levophed minimal 3 mcg leukocytosis improving sputum culture redrawn and pending acenitobacter and burkholderia in sputum, 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 plan: will fu on pending sputum culture, noted the fetroja was stopped sp 5 days continue bactrim to q 6 hrs given increased creatinine clearance in shock state will monitor clinically defer to pulmonology and spout worker teams on optimizing airway clearance (mucus plugging removal via bronch, diuresis, mucolytics) Plan discussed with: Patient Dietary Evaluation Review Comments: 1) Initiate thiamin, folic acid, and MVI supplementation d/t recent ETOH abuse 2) If patient remains NPO > 7 days, consider EN/TPN to meet at least 75% of estimated daily needs 3) If GI is preferred, initiate Glucerna 1.2 @ 60 mL/hr goal rate as tolerated. Flush with 150 mL Q6H. TF regimen will provide 1728 kcals, 86g Pro, and 1759 mL free H2O (including flushes) per 24 hrs. Goal rate will meet ~87% estimated daily energy needs and ~72% estimated daily protein needs 4) Advance to 60g CCHO cardiac diet when medically feasible, pending ST approval 5) Collect HbA1c 6) Refer to outpatient RD/CD[facility] for diabetes education 7) Follow-up with cardiology, pulmonology, and psychiatry 8) Follow-up with social science analyst r/t ETOH abuse 9) Continue to monitor I&O, labs, and skin integrity Expected Outcomes/Goals: 1) patient to receive nutritional support within 7 days of NPO status 2) labs and GI symptoms to improve 3) diet to advance 4) follow-up in 2-3 days MARCELA METZ MD Dec 30, 2024 23:54
--- NOTE | 2024-12-30 23:55 | DVHPN2 ---
Consult Progress Note Date Seen: Dec 30, 2024 Subjective Patient reports: Feels better (new fever, rising FiO2 to 60%, peep 10) Objective vital signs Vital Sign Date Time Temp Pulse Resp B/P (MAP) Pulse Ox O2 Delivery O2 Flow Rate FiO2 12/30/24 22:10 73 15 107/74 (85) 94 50 12/30/24 20:00 Mechanical Ventilator+ 12/30/24 18:30 98.2 208.8 Total Intake and Output 12/29/24 12/29/24 12/30/24 15:00 23:00 07:00 Intake Total 2301.989 ml 1639.518 ml 1839.427 ml Output Total 5100 ml 3550 ml Balance 2301.989 ml -3460.482 ml -1710.573 ml medications Current Medications Medications Dose Ordered Sig/Misa Route Start Time Stop Time Status Last Admin Dose Admin Dextrose 50 ml UD PRN IV 12/01/24 13:30 Cancel Insulin Glargine 15 units DAILY SC 12/02/24 10:00 Cancel Dextrose 50 ml UD PRN IV 12/01/24 16:45 Cancel Acetaminophen 650 mg Q6HP PRN PO 12/01/24 16:45 12/30/24 12:31 650 MG Famotidine 20 mg DAILY IV 12/02/24 10:00 12/30/24 07:54 20 MG Ipratropium [place] 0.5 mg Q4HR NEB 12/01/24 18:00 12/30/24 22:10 0.5 MG Albuterol 2.5 mg Q4HPRN PRN NEB 12/01/24 18:00 12/30/24 22:10 2.5 MG Diagnostic Test (Pha) 1 strip Q6HR 12/02/24 18:00 12/30/24 14:30 1 STRIP Insulin Human Regular Q6HR SC 12/02/24 18:00 12/30/24 17:21 6 UNITS Dextrose 50 ml UD PRN IV 12/02/24 15:45 Lorazepam 1 mg Q5MINP PRN IV 12/03/24 01:45 12/03/24 03:43 1 MG Enteral Nutritional Formula 1,000 ml 40ML/HR GT 12/03/24 09:30 12/30/24 04:02 1,000 ML Levetiracetam 100 ml @ 400 mls/hr BID IV 12/03/24 10:00 UNV Lactulose 30 ml Q6HR GT 12/05/24 08:45 12/29/24 23:28 30 ML Carbamazepine 400 mg BID GT 12/05/24 22:00 12/30/24 22:08 400 MG Sodium Chloride 10 ml QSHIFT@10,22 IV 12/07/24 22:00 12/30/24 22:08 10 ML Multi-Ingredient Ointment 1 applic DAILY TOP 12/09/24 10:00 12/30/24 08:02 1 APPLIC Metoclopramide HCl 10 mg Q8HR IV 12/17/24 16:45 12/30/24 22:08 10 MG Levetiracetam 100 ml @ 400 mls/hr BID IV 12/17/24 22:00 12/30/24 22:07 400 MLS/HR Thiamine HCl 100 mg DAILY PO 12/19/24 10:00 12/30/24 07:54 100 MG Fentanyl Citrate 250 ml @ 2.5 mls/hr Q24H IV 12/20/24 02:45 12/30/24 18:18 27.5 MLS/HR Valproate Sodium 1000 mg/Sodium Chloride 110 ml @ 110 mls/hr BID IV 12/21/24 22:00 12/30/24 22:06 110 MLS/HR Ketamine HCl 500 mg/Sodium Chloride 500 ml @ 5.382 mls/ hr Q24H IV 12/21/24 15:15 12/30/24 20:45 96.876 MLS/HR Trimethoprim/ Sulfamethoxazole 300 ml @ 0 mls/hr PER PHARMACY IV 12/22/24 18:00 Trimethoprim/ Sulfamethoxazole 20 ml/Dextrose 320 ml @ 212.939 mls/hr Q6HR IV 12/24/24 12:00 12/30/24 17:37 212.939 MLS/HR Furosemide 20 mg DAILY IV 12/26/24 10:00 12/30/24 07:53 20 MG Vancomycin HCl 0 ml @ 0 mls/hr UD IV 12/25/24 16:45 Propofol 100 ml @ 2.709 mls/ hr Q24H IV 12/26/24 00:30 12/30/24 22:09 21.672 MLS/HR Rocuronium [place] 50 mg Q3HP PRN IV 10/21/25 14:15 Midazolam HCl 100 ml @ 1 mls/hr Q24H IV 12/28/24 17:45 12/30/24 18:10 15 MLS/HR Norepinephrine Bitartrate 250 ml @ 1.875 mls/ hr Q24H IV 12/29/24 21:00 12/29/24 21:00 5.625 MLS/HR Vasopressin 20 units/Sodium Chloride 100 ml @ 9 mls/hr Q11H7M IV 12/30/24 15:00 12/30/24 22:07 9 MLS/HR Vancomycin HCl 250 ml @ 200 mls/hr Q10H IV 12/30/24 22:00 12/30/24 22:08 200 MLS/HR laboratory and microbiology Laboratory Tests 12/30/24 18:08 Test 12/30/24 18:08 Range/Units Serum Glucose 266 #H 74-106 mg/dL Problem List/Assessment/Plan Problem List/Assessment/Plan patient seen at bedside full note to follow, worsening fevers, FiO2 up to 60%< peep 10 on levophed minimal 3 mcg leukocytosis improving sputum culture redrawn and pending acenitobacter and burkholderia in sputum, 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 plan: will fu on pending sputum culture, noted the fetroja was stopped sp 5 days continue bactrim to q 6 hrs given increased creatinine clearance in shock state will monitor clinically defer to pulmonology and research soil scientist teams on optimizing airway clearance (mucus plugging removal via bronch, diuresis, mucolytics) Plan discussed with: Patient Dietary Evaluation Review Comments: 1) Initiate thiamin, folic acid, and MVI supplementation d/t recent ETOH abuse 2) If patient remains NPO > 7 days, consider EN/TPN to meet at least 75% of estimated daily needs 3) If GI is preferred, initiate Glucerna 1.2 @ 60 mL/hr goal rate as tolerated. Flush with 150 mL Q6H. TF regimen will provide 1728 kcals, 86g Pro, and 1759 mL free H2O (including flushes) per 24 hrs. Goal rate will meet ~87% estimated daily energy needs and ~72% estimated daily protein needs 4) Advance to 60g CCHO cardiac diet when medically feasible, pending ST approval 5) Collect HbA1c 6) Refer to outpatient RD/[facility] for diabetes education 7) Follow-up with cardiology, pulmonology, and psychiatry 8) Follow-up with director of social media marketing r/t ETOH abuse 9) Continue to monitor I&O, labs, and skin integrity Expected Outcomes/Goals: 1) patient to receive nutritional support within 7 days of NPO status 2) labs and GI symptoms to improve 3) diet to advance 4) follow-up in 2-3 days MARCELA METZ MD Dec 30, 2024 23:55
[2024-12-31] VITALS (113 sets, daily range): BP systolic 73–194; BP diastolic 33–115; PULSE 69–117; RESP 11–21; TEMP 96.3–100.4; O2SAT 90–100
[2024-12-31 00:49] LABS: Hematocrit 22.7 % (41.0-53.0); Hemoglobin 7.4 g/dL (13.5-17.5)
[2024-12-31 00:51] LABS: Mean Corpuscular Hemoglobin 28.5 pg (28.0-32.0); Mean Corpuscular Volume 87.3 fL (80.0-100.0); Nucleated Red Blood Cells % 0.0 %
[2024-12-31 00:57] LABS: INR 1.07 (0.9-1.15); Partial Thromboplastin Time 25.9 SEC (24.5-34.5); Prothrombin Time 11.3 sec (9.3-11.8)
[2024-12-31 01:01] LABS: Alanine Aminotransferase < 9 U/L (7-40); Alkaline Phosphatase 170 U/L (46-116); Anion Gap 9 (5-15); BUN/Creatinine Ratio 9.1 (10.0-20.0); Blood Urea Nitrogen < 5 mg/dL (9-23); Calcium 8.1 mg/dL (8.7-10.4); Carbon Dioxide 28 mmol/L (20-31); Chloride 101 mmol/L (98-107); Glucose 232 mg/dL (74-106); Magnesium 2.0 mg/dL (1.6-2.6); Potassium 4.5 mmol/L (3.5-5.1); Sodium 138 mmol/L (136-145); Total Protein 5.9 g/dL (5.7-8.2)
[2024-12-31 01:02] LABS: Albumin 2.7 g/dL (3.2-4.8); Bilirubin, Total < 0.2 mg/dL (0.2-1.0)
[2024-12-31 01:35] LABS: Urine Protein, UAD Negative (Negative)
[2024-12-31 01:45] LABS: Bilirubin, Direct < 0.1 mg/dL (<0.3)
[2024-12-31] MEDS ORDERED: ALBUMIN 5% 250 ML IV SCH (04:00)
[2024-12-31 06:31] LABS: INR 1.06 (0.9-1.15); Partial Thromboplastin Time 26.4 SEC (24.5-34.5); Prothrombin Time 11.2 sec (9.3-11.8)
[2024-12-31 06:50] LABS: Anion Gap 9 (5-15); Carbon Dioxide 28 mmol/L (20-31); Chloride 99 mmol/L (98-107); Magnesium 1.8 mg/dL (1.6-2.6); Potassium 4.8 mmol/L (3.5-5.1); Total Protein 6.0 g/dL (5.7-8.2)
[2024-12-31 06:55] LABS: Alanine Aminotransferase < 9 U/L (7-40); Albumin 2.8 g/dL (3.2-4.8); Alkaline Phosphatase 194 U/L (46-116); BUN/Creatinine Ratio 8.2 (10.0-20.0); Bilirubin, Direct < 0.1 mg/dL (<0.3); Bilirubin, Total < 0.2 mg/dL (0.2-1.0); Blood Urea Nitrogen < 5 mg/dL (9-23); Calcium 8.3 mg/dL (8.7-10.4); Glucose 199 mg/dL (74-106); Sodium 136 mmol/L (136-145)
--- NOTE | 2024-12-31 07:04 | DVH ---
CHEST RADIOGRAPH Indication: on vent Technique: Single frontal view of the chest was obtained Comparison: XY CHEST XRAY 1 VIEW on DOS: 12/30/24, XY CHEST XRAY 1 VIEW on DOS: 12/29/24, XY CHEST XR AY 1 VIEW on DOS: 12/28/24 IMPRESSION: Support lines and tubes appear unchanged in satisfactory position. Bilateral patchy airspace opaciti es appear slightly increased. Probable small left pleural effusion. No pneumothorax. HS:Y
[2024-12-31 07:13] LABS: Hematocrit 24.6 % (41.0-53.0); Hemoglobin 8.1 g/dL (13.5-17.5); Mean Corpuscular Hemoglobin 28.6 pg (28.0-32.0); Mean Corpuscular Volume 86.6 fL (80.0-100.0); Nucleated Red Blood Cells % 0.1 %
[2024-12-31 08:48] LABS: Base Excess 4.2 mmol/L (-2.0-3.0)
[2024-12-31 12:52] LABS: INR 1.08 (0.9-1.15); Partial Thromboplastin Time 26.5 SEC (24.5-34.5); Prothrombin Time 11.4 sec (9.3-11.8)
[2024-12-31 12:54] LABS: Lipase 18 U/L (12-53)
[2024-12-31 12:57] LABS: Anion Gap 7 (5-15); Carbon Dioxide 29 mmol/L (20-31); Potassium 4.5 mmol/L (3.5-5.1); Total Protein 6.2 g/dL (5.7-8.2)
[2024-12-31 13:09] LABS: Alanine Aminotransferase < 9 U/L (7-40); Albumin 2.9 g/dL (3.2-4.8); Alkaline Phosphatase 184 U/L (46-116); BUN/Creatinine Ratio 8.2 (10.0-20.0); Bilirubin, Direct < 0.1 mg/dL (<0.3); Bilirubin, Total < 0.2 mg/dL (0.2-1.0); Blood Urea Nitrogen < 5 mg/dL (9-23); Calcium 7.9 mg/dL (8.7-10.4); Chloride 95 mmol/L (98-107); Glucose 243 mg/dL (74-106); Magnesium 1.6 mg/dL (1.6-2.6); Sodium 131 mmol/L (136-145)
[2024-12-31 13:10] LABS: Amylase < 20 U/L (30-118); Creatine Kinase IFCC 31 U/L (46-171)
[2024-12-31 13:18] LABS: Hemoglobin 8.0 g/dL (13.5-17.5)
[2024-12-31 13:20] LABS: Hematocrit 23.4 % (41.0-53.0); Mean Corpuscular Hemoglobin 29.9 pg (28.0-32.0); Mean Corpuscular Volume 87.2 fL (80.0-100.0)
[2024-12-31 13:39] LABS: Total Cells Counted 100.0 (100)
--- NOTE | 2024-12-31 13:42 | DVHSR ---
APPROVED REPORT EXAM: Two-dimensional and M-mode echocardiogram with Doppler and color Doppler. Blood Pressure: 115/72 mmHg INDICATION [facility] RISK FACTORS Height: 5' 10", Weight: 199 DIMENSIONS LVDd3.9 (3.8-5.7cm)LA (2D)3.4 (1.9-4.0cm)Aortic Root3.6 (2.0-3.7cm) LVDs2.5 (2.5-4.0cm)LA (MM) (1.9-4.0cm)Aortic Cusp Exc1.7 (1.5-2.0cm) EF (%) 60.0 (55-70%)Rt. Atrium3.4 (1.9-4.0cm)Asc. Aorta cm IVSd1.2 (0.7-1.1cm)RV (D) (1.8-2.4cm) PWd1.2 (0.7-1.1cm) Mitral Valve MitralMitral Stenosis E wave1.00m/sMV Mean GR.mmHg A wave0.70m/sMV Peak GR.mmHg E/A ratio1.42D MVAcm2 Aortic Valve Aortic ValveAortic Stenosis V11.00m/Negrita Mean GR.3mmHg V21.00m/Negrita Peak GR.4mmHg LVOT Diameter2.0 (1.8-2.4cm)Doppler AVA3.14cm2 Pulmonic Valve V20.90m/s Conclusion lvef 60% moderate LVH normal rv function normal atria no severe valve abnormaliteis noted
[2024-12-31 14:03] LABS: Urine Protein, UAD Negative (Negative)
--- NOTE | 2024-12-31 14:25 | DVHPNRES ---
Progress Note Date Seen: Dec 31, 2024 Resident Creating Document: ARDEN KELLY RESIDENT Medical Necessity Reason Pt with a Central, PICC or Fol: Yes The following are medically ne: Central Line, Orellana Catheter Subjective Review of Systems SAGE BONILLA is a 44-year-old male with past medical history of asthma, CVA, intracerebral hemorrhage, subdural hematoma, (status post [employer] MA[employer]IST shunt, 10 years back), depression, diabetes type 1, hypertension, seizure, bipolar disorder brought to the hospital due to altered mental status. Per patient's roommate, he has not been using his medicine since 1 week, and had developed nausea, vomiting and diarrhea since 3 days, and since 1 day has been altered. Denies fever, loss of consciousness, or any trauma. PMHx: asthma, CVA, intracerebral hemorrhage, subdural hematoma, (status post [employer] MA[employer]IST shunt, 10 years back), depression, diabetes type 1, hypertension, seizure, bipolar disorder PSHx: [employer] MA[employer] SPECIALIST shunt (10 years back), had removed molar to 3 weeks back, had tracheostomy in 2019 (due to intracerebral hemorrhage) Social history: Smokes marijuana and drink heavy alcohol. Lives with friend at home. At baseline mobile, but does not work, on disability Home medication: Quetiapine, sertraline, gabapentin, insulin NPH, levetiracetam, oxcarbazepine, and hydroxyzine, noncompliant with the medicine 12/31/2024: patient seen and examined in icu. On ventilations. patient is plan for terminal wean on wednesday. on ventilators. no new night events. Objective vital signs Vital Sign Date Time Temp Pulse Resp B/P (MAP) Pulse Ox O2 Delivery O2 Flow Rate FiO2 12/31/24 13:30 100.4 102 13 136/93 (107) 95 212.7 12/31/24 12:29 80 12/31/24 12:29 Mechanical Ventilator+ Total Intake and Output 12/30/24 12/30/24 12/31/24 15:00 23:00 07:00 Intake Total 2627.425 ml 2812.723 ml 2022.05 ml Output Total 5300 ml 1425 ml Balance 2627.425 ml -2487.277 ml 597.05 ml medications Current Medications Medications Dose Ordered Sig/Misa Route Start Time Stop Time Status Last Admin Dose Admin Dextrose 50 ml UD PRN IV 12/01/24 13:30 Cancel Insulin Glargine 15 units DAILY SC 12/02/24 10:00 Cancel Dextrose 50 ml UD PRN IV 12/01/24 16:45 Cancel Acetaminophen 650 mg Q6HP PRN PO 12/01/24 16:45 12/30/24 12:31 650 MG Famotidine 20 mg DAILY IV 12/02/24 10:00 12/31/24 10:21 20 MG Ipratropium [place] 0.5 mg Q4HR NEB 12/01/24 18:00 12/31/24 10:22 0.5 MG Albuterol 2.5 mg Q4HPRN PRN NEB 12/01/24 18:00 12/31/24 10:22 2.5 MG Diagnostic Test (Pha) 1 strip Q6HR 12/02/24 18:00 12/31/24 12:23 1 STRIP Insulin Human Regular Q6HR SC 12/02/24 18:00 12/31/24 12:36 9 UNITS Dextrose 50 ml UD PRN IV 12/02/24 15:45 Lorazepam 1 mg Q5MINP PRN IV 12/03/24 01:45 12/03/24 03:43 1 MG Enteral Nutritional Formula 1,000 ml 40ML/HR GT 12/03/24 09:30 12/30/24 04:02 1,000 ML Levetiracetam 100 ml @ 400 mls/hr BID IV 12/03/24 10:00 UNV Lactulose 30 ml Q6HR GT 12/05/24 08:45 12/31/24 12:46 30 ML Carbamazepine 400 mg BID GT 12/05/24 22:00 12/31/24 10:07 400 MG Sodium Chloride 10 ml QSHIFT@10,22 IV 12/07/24 22:00 12/31/24 10:13 10 ML Multi-Ingredient Ointment 1 applic DAILY TOP 12/09/24 10:00 12/31/24 12:20 1 APPLIC Metoclopramide HCl 10 mg Q8HR IV 12/17/24 16:45 12/31/24 05:56 10 MG Levetiracetam 100 ml @ 400 mls/hr BID IV 12/17/24 22:00 12/31/24 12:09 400 MLS/HR Thiamine HCl 100 mg DAILY PO 12/19/24 10:00 12/31/24 10:12 100 MG Fentanyl Citrate 250 ml @ 2.5 mls/hr Q24H IV 12/20/24 02:45 12/31/24 12:37 27.5 MLS/HR Valproate Sodium 1000 mg/Sodium Chloride 110 ml @ 110 mls/hr BID IV 12/21/24 22:00 12/31/24 10:09 110 MLS/HR Ketamine HCl 500 mg/Sodium Chloride 500 ml @ 5.382 mls/ hr Q24H IV 12/21/24 15:15 12/31/24 12:14 96.876 MLS/HR Trimethoprim/ Sulfamethoxazole 300 ml @ 0 mls/hr PER PHARMACY IV 12/22/24 18:00 Trimethoprim/ Sulfamethoxazole 20 ml/Dextrose 320 ml @ 212.939 mls/hr Q6HR IV 12/24/24 12:00 12/31/24 12:41 212.939 MLS/HR Furosemide 20 mg DAILY IV 12/26/24 10:00 12/31/24 10:13 20 MG Vancomycin HCl 0 ml @ 0 mls/hr UD IV 12/25/24 16:45 Propofol 100 ml @ 2.709 mls/ hr Q24H IV 12/26/24 00:30 12/31/24 10:02 27.09 MLS/HR Rocuronium [place] 50 mg Q3HP PRN IV 12/26/24 14:15 Midazolam HCl 100 ml @ 1 mls/hr Q24H IV 12/28/24 17:45 12/31/24 09:13 15 MLS/HR Norepinephrine Bitartrate 250 ml @ 1.875 mls/ hr Q24H IV 12/29/24 21:00 12/29/24 21:00 5.625 MLS/HR Vasopressin 20 units/Sodium Chloride 100 ml @ 9 mls/hr Q11H7M IV 12/30/24 15:00 12/31/24 12:17 9 MLS/HR Vancomycin HCl 250 ml @ 200 mls/hr Q10H IV 12/30/24 22:00 12/31/24 09:31 200 MLS/HR Examination General Appearance: Sedated, Intubated on mechanical ventilation with a RASS -3 HEENT: Atraumatic, Mucous membranes moist/pink,ET tube in place Respiratory: Clear to auscultation, Normal air movement,on MV, mild crackles on left side Cardiovascular: Regular rate, Normal S1, Normal S2, No murmurs Abdominal: Active bowel sounds, Soft, no distention, no tenderness : Orellana catheter in place, shows hematuria Extremities: No edema, Normal pulses, No tenderness/swelling Skin: A small 2 x 2 cm scab noticed at the heel of left foot, scaly lesions all over body Neuro: sluggish pupils but reactive, gag/cough reflex intact laboratory and microbiology Laboratory Tests 12/31/24 12:09 Test 12/31/24 12:09 Range/Units Serum Glucose 243 H 74-106 mg/dL Microbiology Date/Time Source Procedure Growth Status 12/30/24 12:02 Blood Blood Culture - Preliminary NO GROWTH AFTER 24 HOURS OF INCUBATION. Resulted 12/29/24 03:01 Urine - [place] Port Urine Culture - Final Complete 12/29/24 02:49 Sputum Gram Stain - Final Resulted 12/29/24 02:49 Sputum Respiratory Culture - Preliminary Resulted 12/18/24 13:00 Thigh Right Gram Stain - Final Resulted 12/18/24 13:00 Thigh Right Wound Culture - Preliminary Resulted Problem List/Assessment/Plan Problem List/Assessment/Plan Neurology # Acute Metabolic Encephalopathy: Likely secondary to DKA and sepsis. # History of Intracerebral hemorrhage, status post [employer] MA[employer]IST shunt. # Chronic subdural hematoma # Hx of Epilepsy. - Imaging: Head CT (12/01) showed no new intracranial abnormalities. - Sedation/Neurological Status: RASS score -3 - Discontinue: Quetiapine, Gabapentin, we will resume once patient is extubated - Continue home medications: Keppra, Oxcarbazepine, Valproic acid. - Sedation: Versed, Fentanyl, Propofol, Precedex, Ketamine. 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 - Plan is to do tracheostomy once patient is stabilized as on vent settings as surgery recommendations FiO? ~35% and PEEP ~5; - continue breathing treatments. - Antibiotics per ID - Bronchoscopy performed on 12/23; - bronchoscopy done on 12/30/2024 Gastrointestinal / Nutrition/ Liver # Possible refeeding syndrome. # Constipation- giving bowel regimen with the lactulose # PUD PPX- Protonix - Blackish oral drainage and high gastric residual noted on 12/12; NG tube discontinued, Dobbhoff tube placed, passed bowel movements today - Thiamine, Folic acid. - Diet- Glucerna 10 ml/hr Genitourinary / Kidney # Acute Kidney Injury Likely secondary to volume depletion; resolved. - Medications: Lasix 20 mg daily. - strict I&O - Avoid Nephrotoxic drugs - Orellana catheter placed on 12/01. Endocrine # Uncontrolled Diabetes Mellitus Type 1. with A1C 10 # Severe DKA Resolved # medication /dietary noncompliance - Insulin sliding scale (ISS). - Lantus 15 given - continuously monitoring blood glucose - counseling on medication adherence we will be given once patient is extubated Metabolic Hypokalemia- resolving Hyponatremia- resolving Hypomagnesemia- resolving Hypophosphatemia- resolving Hyperphosphatemia- resolving - continuously monitoring electrolyte derangements and correcting as needed Musculoskeletal / Skin # Scab on left heel. # New skin eruptions: Xerosis/Seborrheic dermatitis, possible drug eruption or infection-related. # Erythematous/scaly rashes on cheeks, face, and neck; no mucosal involvement - Eucerin cream. - Monitoring eosinophil levels. Psych/Behavioral # Alcohol use disorder. # Possible alcohol withdrawal # Bipolar disorder/depression. 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 # Aspiration pneumonia. # Dental infection # G + bacteremia - ordered repeat blood culture today - Blood and urine cultures (12/01): No growth. - initially patient is on Rocephin, azithromycin and clindamycin discontinued and switched to vancomycin and cefepime again switched to linezolid agains switched to meropenem and currently on below abx - Repeat pancultures 12/24 showed initial blood cultures Gram-positive bacteremia so again added vancomycin along with and bactrim, stopped Fetroja Lines / Tubes / Devices Airway: Intubated via ETT on 12/01. Vascular Access: PICC line placed on 11/07. Drips: Fentanyl, Versed, Precedex, Propofol. Prophylaxis / Supportive Care DVT Prophylaxis: lovenox stopped due to hematuria GI Prophylaxis: Protonix. Nutrition: Glucerna via Dobbhoff tube. Goals of care discussed with the patient family for more than 29 minutes: Full code state Plan for Procedure tomorrow 8 AM in OR. Critical care time spent excluding procedures 79 minutes Plan discussed with Dr Colvin and RN Plan discussed with: Other (RN) My Orders My Orders Orders - ARDEN KELLY RESIDENT Procedure Category Date Status Time Packedcell-Noactive BBK 01/01/25 Logged Bleeding 04:00 Type And Screen BBK 12/31/24 In Process 10:38 Packedcell-Noactive BBK 12/31/24 Logged Bleeding 12:41 Packedcell-Noactive BBK 12/31/24 Logged Bleeding 12:46 Packedcell-Noactive BBK 12/31/24 Logged Bleeding 12:48 Packedcell-Noactive BBK 12/31/24 Logged Bleeding 12:51 Dietary Evaluation Review Comments: 1) Initiate thiamin, folic acid, and MVI supplementation d/t recent ETOH abuse 2) If patient remains NPO > 7 days, consider EN/TPN to meet at least 75% of estimated daily needs 3) If GI is preferred, initiate Glucerna 1.2 @ 60 mL/hr goal rate as tolerated. Flush with 150 mL Q6H. TF regimen will provide 1728 kcals, 86g Pro, and 1759 mL free H2O (including flushes) per 24 hrs. Goal rate will meet ~87% estimated daily energy needs and ~72% estimated daily protein needs 4) Advance to 60g CCHO cardiac diet when medically feasible, pending ST approval 5) Collect HbA1c 6) Refer to outpatient RD/[facility] for diabetes education 7) Follow-up with cardiology, pulmonology, and psychiatry 8) Follow-up with social studies teacher r/t ETOH abuse 9) Continue to monitor I&O, labs, and skin integrity Expected Outcomes/Goals: 1) patient to receive nutritional support within 7 days of NPO status 2) labs and GI symptoms to improve 3) diet to advance 4) follow-up in 2-3 days ARDEN KELLY Dec 31, 2024 14:25 MIKAEL COLVIN MD Jan 03, 2025 15:16
[2024-12-31 18:50] LABS: Hemoglobin 7.9 g/dL (13.5-17.5)
[2024-12-31 18:52] LABS: Hematocrit 23.2 % (41.0-53.0); Mean Corpuscular Hemoglobin 29.3 pg (28.0-32.0); Mean Corpuscular Volume 86.3 fL (80.0-100.0)
[2024-12-31 19:09] LABS: Lipase 18 U/L (12-53)
[2024-12-31 19:10] LABS: Anion Gap 6 (5-15); BUN/Creatinine Ratio 8.1 (10.0-20.0); Carbon Dioxide 29 mmol/L (20-31); Potassium 4.5 mmol/L (3.5-5.1); Total Protein 6.4 g/dL (5.7-8.2)
[2024-12-31 19:12] LABS: INR 1.08 (0.9-1.15); Partial Thromboplastin Time 27.8 SEC (24.5-34.5); Prothrombin Time 11.4 sec (9.3-11.8)
[2024-12-31 19:16] LABS: Alanine Aminotransferase < 9 U/L (7-40); Alkaline Phosphatase 188 U/L (46-116); Bilirubin, Direct < 0.1 mg/dL (<0.3); Bilirubin, Total < 0.2 mg/dL (0.2-1.0); Blood Urea Nitrogen 5 mg/dL (9-23); Calcium 8.0 mg/dL (8.7-10.4); Chloride 94 mmol/L (98-107); Glucose 173 mg/dL (74-106); Sodium 129 mmol/L (136-145)
[2024-12-31 19:17] LABS: Albumin 3.0 g/dL (3.2-4.8); Amylase < 20 U/L (30-118); Magnesium 1.5 mg/dL (1.6-2.6)
[2024-12-31 19:22] LABS: Anisocytosis Slight; Total Cells Counted 100.0 (100)
[2024-12-31] MEDS: MAGNESIUM SULFATE 1GM/100ML 100 ML IV ONE ×2 (21:08→21:09)
--- NOTE | 2024-12-31 21:57 | DVHPN2 ---
Subjective DOS: 12/31/2024 Patient seen and examined at bedside. Sedated, intubated on mechanical ventilator. Overnight events reviewed. Reviewed: Care Plan, H&P, Labs, Medications, Previous Orders, Radiology Changes from previous H/P or p: No Changes Objective Vitals Vital Signs Date Time Temp Pulse Resp B/P (MAP) Pulse Ox O2 Delivery O2 Flow Rate FiO2 12/31/24 20:21 74 13 115/75 (88) 100 80 12/31/24 19:15 98.6 209.5 12/31/24 18:00 Mechanical Ventilator+ Intake/Output Intake and Output 12/31/24 06:59 Intake Total 7643.438 ml Output Total 6725 ml Balance 918.438 ml Intake Oral 250 ml IV Total 7071.438 ml Tube Feeding 322 ml Output Urine Total 6725 ml # Bowel Movements 1 General Appearance: Other (vent) HEENT: Atraumatic, PERRLA Lungs: Other (On vent; few crackles) Cardiovascular: Other (border tachy) Abdomen: Normal bowel sounds Neuro: Other (sluggish pupils but reactive, gag/cough reflex intact) Medications Current Medications Medications Dose Ordered Sig/Misa Route Start Time Stop Time Status Last Admin Dose Admin Dextrose 50 ml UD PRN IV 12/01/24 13:30 Cancel Insulin Glargine 15 units DAILY SC 12/02/24 10:00 Cancel Dextrose 50 ml UD PRN IV 12/01/24 16:45 Cancel Acetaminophen 650 mg Q6HP PRN PO 12/01/24 16:45 12/30/24 12:31 650 MG Famotidine 20 mg DAILY IV 12/02/24 10:00 12/31/24 10:21 20 MG Ipratropium [place] 0.5 mg Q4HR NEB 12/01/24 18:00 12/31/24 18:13 0.5 MG Albuterol 2.5 mg Q4HPRN PRN NEB 12/01/24 18:00 12/31/24 18:13 2.5 MG Diagnostic Test (Pha) 1 strip Q6HR 12/02/24 18:00 12/31/24 17:54 1 STRIP Insulin Human Regular Q6HR SC 12/02/24 18:00 12/31/24 18:08 2 UNITS Dextrose 50 ml UD PRN IV 12/02/24 15:45 Lorazepam 1 mg Q5MINP PRN IV 12/03/24 01:45 12/03/24 03:43 1 MG Enteral Nutritional Formula 1,000 ml 40ML/HR GT 12/03/24 09:30 12/30/24 04:02 1,000 ML Levetiracetam 100 ml @ 400 mls/hr BID IV 12/03/24 10:00 UNV Lactulose 30 ml Q6HR GT 12/05/24 08:45 12/31/24 17:50 30 ML Carbamazepine 400 mg BID GT 12/05/24 22:00 12/31/24 10:07 400 MG Sodium Chloride 10 ml QSHIFT@10,22 IV 12/07/24 22:00 12/31/24 10:13 10 ML Multi-Ingredient Ointment 1 applic DAILY TOP 12/09/24 10:00 12/31/24 12:20 1 APPLIC Metoclopramide HCl 10 mg Q8HR IV 12/17/24 16:45 12/31/24 14:16 10 MG Levetiracetam 100 ml @ 400 mls/hr BID IV 12/17/24 22:00 12/31/24 12:09 400 MLS/HR Thiamine HCl 100 mg DAILY PO 12/19/24 10:00 12/31/24 10:12 100 MG Fentanyl Citrate 250 ml @ 2.5 mls/hr Q24H IV 12/20/24 02:45 12/31/24 20:08 30 MLS/HR Valproate Sodium 1000 mg/Sodium Chloride 110 ml @ 110 mls/hr BID IV 12/21/24 22:00 12/31/24 10:09 110 MLS/HR Ketamine HCl 500 mg/Sodium Chloride 500 ml @ 5.382 mls/ hr Q24H IV 12/21/24 15:15 12/31/24 17:46 96.876 MLS/HR Trimethoprim/ Sulfamethoxazole 300 ml @ 0 mls/hr PER PHARMACY IV 12/22/24 18:00 Trimethoprim/ Sulfamethoxazole 20 ml/Dextrose 320 ml @ 212.939 mls/hr Q6HR IV 12/24/24 12:00 12/31/24 18:04 212.939 MLS/HR Furosemide 20 mg DAILY IV 12/26/24 10:00 12/31/24 10:13 20 MG Vancomycin HCl 0 ml @ 0 mls/hr UD IV 12/25/24 16:45 Propofol 100 ml @ 2.709 mls/ hr Q24H IV 12/26/24 00:30 12/31/24 20:09 27.09 MLS/HR Rocuronium [place] 50 mg Q3HP PRN IV 12/26/24 14:15 Midazolam HCl 100 ml @ 1 mls/hr Q24H IV 12/28/24 17:45 12/31/24 15:37 15 MLS/HR Norepinephrine Bitartrate 250 ml @ 1.875 mls/ hr Q24H IV 12/29/24 21:00 12/29/24 21:00 5.625 MLS/HR Vasopressin 20 units/Sodium Chloride 100 ml @ 9 mls/hr Q11H7M IV 12/30/24 15:00 12/31/24 12:17 9 MLS/HR Vancomycin HCl 250 ml @ 200 mls/hr Q10H IV 12/30/24 22:00 12/31/24 17:43 200 MLS/HR Albumin Human 250 ml @ 250 mls/hr ONCE IV 01/01/25 04:00 UNV Laboratory Results Laboratory Tests 12/31/24 18:35 Chemistry Test 12/31/24 00:20 12/31/24 05:46 12/31/24 12:09 12/31/24 18:35 Albumin 2.7 g/dL (3.2-4.8) L 2.8 g/dL (3.2-4.8) L 2.9 g/dL (3.2-4.8) L 3.0 g/dL (3.2-4.8) L Calcium Level 8.1 mg/dL (8.7-10.4) L 8.3 mg/dL (8.7-10.4) L 7.9 mg/dL (8.7-10.4) L 8.0 mg/dL (8.7-10.4) L Magnesium Level 2.0 mg/dL (1.6-2.6) 1.8 mg/dL (1.6-2.6) 1.6 mg/dL (1.6-2.6) 1.5 mg/dL (1.6-2.6) L Phosphorus Level 3.1 mg/dL (2.4-5.1) 2.9 mg/dL (2.4-5.1) 2.5 mg/dL (2.4-5.1) 2.4 mg/dL (2.4-5.1) Total Protein 5.9 g/dL (5.7-8.2) 6.0 g/dL (5.7-8.2) 6.2 g/dL (5.7-8.2) 6.4 g/dL (5.7-8.2) Coagulation Test 12/31/24 00:20 12/31/24 05:46 12/31/24 12:09 12/31/24 18:35 Prothrombin Time 11.3 sec (9.3-11.8) 11.2 sec (9.3-11.8) 11.4 sec (9.3-11.8) 11.4 sec (9.3-11.8) Prothrombin Time INR 1.07 (0.9-1.15) 1.06 (0.9-1.15) 1.08 (0.9-1.15) 1.08 (0.9-1.15) Activated Partial Thromboplast Time 25.9 SEC (24.5-34.5) 26.4 SEC (24.5-34.5) 26.5 SEC (24.5-34.5) 27.8 SEC (24.5-34.5) Lipid panel Test 12/31/24 12:09 12/31/24 18:35 Lipase 18 U/L (12-53) 18 U/L (12-53) LFT Test 12/31/24 00:20 12/31/24 05:46 12/31/24 12:09 12/31/24 18:35 Alanine Aminotransferase (ALT) < 9 U/L (7-40) < 9 U/L (7-40) < 9 U/L (7-40) < 9 U/L (7-40) Alkaline Phosphatase 170 U/L (46-116) H 194 U/L (46-116) H 184 U/L (46-116) H 188 U/L (46-116) H Aspartate Amino Transferase (AST) 12 U/L (13-40) L 9 U/L (13-40) L 14 U/L (13-40) 14 U/L (13-40) Direct Bilirubin < 0.1 mg/dL (<0.3) < 0.1 mg/dL (<0.3) < 0.1 mg/dL (<0.3) < 0.1 mg/dL (<0.3) Total Bilirubin < 0.2 mg/dL (0.2-1.0) L < 0.2 mg/dL (0.2-1.0) L < 0.2 mg/dL (0.2-1.0) L < 0.2 mg/dL (0.2-1.0) L Urinalysis Test 12/31/24 01:25 12/31/24 13:52 Urine Mucus Few (None Seen) Urine Color Colorless (Yellow) Urine Clarity Turbid (Clear) H Urine pH 7.0 (5.0-9.0) Urine Specific Diamond 1.010 (1.001-1.035) Urine Protein Negative (Negative) Urine Ketones Negative (Negative) Urine Blood 3+ /uL (Negative) H Urine Nitrite Negative (Negative) Urine Bilirubin Negative (Negative) Urine Urobilinogen Normal mg/dL (Negative) Urine Leukocyte Esterase Negative /uL (Negative) Urine RBC 1328 /hpf (0 - 3) Urine Microscopic WBC 10 /HPF (0-3) H Urine Squamous Epithelial Cells None seen /hpf (<5) Urine Bacteria None seen /hpf (None Seen) Urine Glucose 3+ mg/dL (Normal) H Blood Gas Results Test 12/31/24 07:32 Arterial Blood pH 7.429 (7.350-7.450) FiO2 % 50.0 Microbiology Microbiology Date/Time Source Procedure Growth Status 12/30/24 12:02 Blood Blood Culture - Preliminary NO GROWTH AFTER 24 HOURS OF INCUBATION. Resulted 12/29/24 03:01 Urine - [place] Urine Culture - Final Complete 12/29/24 02:49 Sputum Gram Stain - Final Resulted 12/29/24 02:49 Sputum Respiratory Culture - Preliminary Resulted 12/18/24 13:00 Thigh Right Gram Stain - Final Resulted 12/18/24 13:00 Thigh Right Wound Culture - Preliminary Resulted Assessment/Plan Assessment/Plan Impression: Acute hypoxic respiratory failure On mechanical ventilator Acute metabolic encephalopathy Pneumonia, likely GNR Bipolar disorder Cannabinoid use Events: Remains on vent support On AC mode; RR 12, VT 400, PEEP 8, FiO2 80% ABG reviewed, compensated. CXR demonstrates bilateral patchy airspace opacities appear slightly increased. Probable small left pleural effusion. No pneumothorax. Sedated on Versed, Ketamine, Fentanyl On pressors for hemodynamic support On vasopressin 0.03 units/min Titrate to keep mean arterial pressure greater than 65 mmHg. Off Levophed. Continue antibiotics Antiepileptic w/ Keppra Tube feeds for nutritional support Hematuria has resolved. Lovenox on hold. Monitor hemoglobin closely Transfuse if less than 7.0 g/dL. Note, awaiting organ donation. Labs and imaging reviewed. Rest of plan as noted below. Plan: s/p intubation on mechanical ventilator. On AC mode; RR 12, VT 400, PEEP 8, FiO2 80% Titrate FIO2 to keep O2 saturation above 90%. VAP bundle. Daily ABG and CXR while intubated Sedate for ventilator synchrony Continue bronchodilators. Continue antibiotics. Follow up cultures. Accu-Cheks for glycemic monitoring. Insulin PRN. Tube feeds for nutritional support Pressors as necessary for hemodynamic support Titrate to keep mean arterial pressure greater than 65 mmHg. Monitor renal function Monitor electrolytes. Supplement as necessary. Monitor ins and outs. Maintain euvolemia. Tube feeds for nutritional support Monitor hemoglobin Transfuse if less than 7.0 g/dL. GI prophylaxis. DVT prophylaxis. Prognosis: Poor given patient's multiple co-morbidities. Condition: Critical Rest of plan per hospitalist and other consultants. A total of 35 minutes of critical care time was spent reviewing the patient record, examining the patient, making a diagnostic and therapeutic plan, discussing this plan with the medical personnel, following up on diagnostic studies and following the patient for clinical stability excluding any and all procedures. At least 50% of this time was spent in direct, [id number] contact. Thank you, SHEILA Rodriguez, for allowing me to participate in this patient's care. Further recommendations will depend on the patient's clinical course. Please do not hesitate to contact me if you have any questions or concerns. This medical document was created using an electronic medical record system with [employer] system. Although these documentations are being carefully reviewed, there may still be some phonetic and typographical changes. The errors are purely typographical, due to imperfection on the software program, and do not reflect any compromise in the patient's medical care. Plan discussed with: Other (KEYANA Charles) My Orders Orders - MIKAEL SCHWARTZ MD Procedure Category Date Status Time Creatine Kinase Ckmb LAB 12/31/24 In Process 12:00 Amylase LAB 01/01/25 Verified 00:00 Amylase LAB 01/01/25 Verified 06:00 Amylase LAB 01/01/25 Verified 12:00 Lipase LAB 01/01/25 Verified 00:00 Lipase LAB 01/01/25 Verified 06:00 Lipase LAB 01/01/25 Verified 12:00 Creatine Kinase Ckmb LAB 01/01/25 Verified 00:00 Creatine Kinase Ckmb LAB 01/01/25 Verified 06:00 Creatine Kinase Ckmb LAB 01/01/25 Verified 12:00 Troponin-I Hs LAB 01/01/25 Verified 00:00 Troponin-I Hs LAB 01/01/25 Verified 06:00 Troponin-I Hs LAB 01/01/25 Verified 12:00 Visit Coding Pulmonary Billing Provider: MIKAEL SCHWARTZ MD Date of Service if different f: Dec 31, 2024 Common Visit Codes: [id number] INP/OBS CARE(HIGH), 79071-[id number] CARE 30-74 MIN MIKAEL SCHWARTZ MD Dec 31, 2024 21:57
[2025-01-01] VITALS (44 sets, daily range): BP systolic 100–147; BP diastolic 52–89; PULSE 68–81; RESP 0–13; TEMP 97.2–99; O2SAT 93–99
[2025-01-01 00:16] LABS: Hemoglobin 7.1 g/dL (13.5-17.5)
[2025-01-01 00:17] LABS: Hematocrit 21.0 % (41.0-53.0); Mean Corpuscular Hemoglobin 28.9 pg (28.0-32.0); Mean Corpuscular Volume 85.7 fL (80.0-100.0); Nucleated Red Blood Cells % 0.0 %
[2025-01-01 00:25] LABS: Urine Protein, UAD Negative (Negative)
[2025-01-01 00:32] LABS: INR 1.06 (0.9-1.15); Partial Thromboplastin Time 28.2 SEC (24.5-34.5); Prothrombin Time 11.2 sec (9.3-11.8)
[2025-01-01 00:34] LABS: Anion Gap 7 (5-15); Carbon Dioxide 28 mmol/L (20-31); Magnesium 1.7 mg/dL (1.6-2.6); Potassium 4.4 mmol/L (3.5-5.1); Total Protein 6.0 g/dL (5.7-8.2)
[2025-01-01 00:37] LABS: Alanine Aminotransferase < 9 U/L (7-40); Albumin 2.8 g/dL (3.2-4.8); Alkaline Phosphatase 178 U/L (46-116); BUN/Creatinine Ratio 9.3 (10.0-20.0); Bilirubin, Total < 0.2 mg/dL (0.2-1.0); Blood Urea Nitrogen < 5 mg/dL (9-23); Calcium 8.1 mg/dL (8.7-10.4); Chloride 92 mmol/L (98-107); Glucose 240 mg/dL (74-106); Sodium 127 mmol/L (136-145)
[2025-01-01 00:42] LABS: Lipase 14 U/L (12-53)
[2025-01-01 00:45] LABS: Amylase < 20 U/L (30-118)
[2025-01-01] MEDS: ALBUMIN 5% 750 ML IV ONE (02:27)
[2025-01-01] MEDS: HEPARIN SODIUM (PORCINE) 5000 UNITS/ML 1ML VIAL IV ONE (02:45)
[2025-01-01] MEDS ORDERED: HYDROmorphone HCL 2 MG/ML VL/or syr IV PRN ×2 (02:45→08:45)
[2025-01-01] MEDS ORDERED: LORazepam 2MG/ML-1ML VIAL IV PRN ×2 (02:45→08:45)
[2025-01-01 02:53] LABS: Bilirubin, Direct < 0.1 mg/dL (<0.3)
[2025-01-01] MEDS: MAGNESIUM SULFATE 1GM/100ML 100 ML IV ONE ×3 (03:00→06:31)
--- NOTE | 2025-01-01 03:41 | DVH ---
CHEST RADIOGRAPH Indication: Resp failure Technique: Single frontal view of the chest was obtained COMPARISON: XY CHEST XRAY 1 VIEW on DOS: 12/31/24, XY CHEST XRAY 1 VIEW on DOS: 12/30/24, XY CHEST XR AY 1 VIEW on DOS: 12/29/24, XY CHEST XRAY 1 VIEW on DOS: 12/28/24, XY CHEST XRAY 1 VIEW on DOS: 12/27 FINDINGS: Lines and Tubes: Unchanged. Lungs: Stable appearing bibasilar pulmonary airspace disease and small bilateral pleural effusions. No pneumothorax. Cardiomediastinal contours: Unremarkable Bones: Unremarkable IMPRESSION: 1. Stable appearing bibasilar pulmonary airspace disease and small bilateral pleural effusions. 2. Lines and tubes unchanged.
[2025-01-01] MEDS: ALBUMIN 25% 100 ML IV ONE (04:00)
[2025-01-01] MEDS ORDERED: ALBUMIN 5% 250 ML IV SCH (04:00)
[2025-01-01 05:23] LABS: Hemoglobin 7.1 g/dL (13.5-17.5); Nucleated Red Blood Cells % 0.0 %
[2025-01-01 05:25] LABS: Hematocrit 20.6 % (41.0-53.0); Mean Corpuscular Hemoglobin 29.6 pg (28.0-32.0); Mean Corpuscular Volume 85.8 fL (80.0-100.0)
[2025-01-01 05:33] LABS: INR 1.05 (0.9-1.15); Partial Thromboplastin Time 28.5 SEC (24.5-34.5); Prothrombin Time 11.1 sec (9.3-11.8)
[2025-01-01 05:47] LABS: Anion Gap 7 (5-15); Carbon Dioxide 28 mmol/L (20-31); Magnesium 1.6 mg/dL (1.6-2.6); Potassium 4.0 mmol/L (3.5-5.1); Total Protein 6.0 g/dL (5.7-8.2)
[2025-01-01 05:49] LABS: Alanine Aminotransferase < 9 U/L (7-40); Albumin 2.8 g/dL (3.2-4.8); Alkaline Phosphatase 179 U/L (46-116); BUN/Creatinine Ratio 9.4 (10.0-20.0); Bilirubin, Direct < 0.1 mg/dL (<0.3); Bilirubin, Total < 0.2 mg/dL (0.2-1.0); Blood Urea Nitrogen < 5 mg/dL (9-23); Calcium 7.8 mg/dL (8.7-10.4); Chloride 91 mmol/L (98-107); Glucose 272 mg/dL (74-106); Sodium 126 mmol/L (136-145)
[2025-01-01 06:04] LABS: Base Excess -0.8 mmol/L (-2.0-3.0)
[2025-01-01 06:08] LABS: Lipase 18 U/L (12-53)
[2025-01-01 06:09] LABS: Amylase < 20 U/L (30-118)
[2025-01-01] MEDS: ALBUMIN 25% 50 ML IV ONE (07:08)
[2025-01-01] MEDS: ALBUMIN 5% 500 ML IV ONE (07:08)
--- NOTE | 2025-01-01 10:45 | DVHDS2 ---
Summary Date of Admission Dec 01, 2024 at 16:38 Date and Time of Expiration: Jan 01, 2025 10:42 (pea 1037time of 1042.) Labs/Diagnostic Data: Laboratory Results Test 01/01/25 05:55 01/01/25 05:10 01/01/25 05:00 01/01/25 03:00 Blood Gas Specimen Type Arterial Blood Gas Sample Site Arterial line Blood Gas Patient Temperature 37.0 Arterial Blood Date Drawn [id number] Arterial Blood pH 7.381 (7.350-7.450) Arterial Blood Partial Pressure CO2 41.9 mmHg (35.0-48.0) Arterial Blood Partial Pressure O2 94.5 mmHg (83.0-108.0) Arterial Blood HCO3 24.3 mmol/L (21.0-28.0) Arterial Blood Oxygen Saturation 96.0 % (94.0-98.0) Arterial Blood Base Excess -0.8 mmol/L (-2.0-3.0) Arterial Blood Oxyhemoglobin 94.7 % (94.0-98.0) Arterial Blood Carboxyhemoglobin 1.0 % (0.5-1.5) Arterial Blood Methemoglobin 0.4 % (0.0-1.5) Eligio Test N/a Blood Gas Total Hemoglobin 7.90 g/dL (13.5-17.5) Blood Gas Set Respiration Rate 12.0 Blood Gas Modality Vent - ac FiO2 % 70.0 Blood Gas Tidal Volume 400.0 Blood Gas PEEP or CPAP 8.0 POC Glucose 276 mg/dl (70-106) White Blood Count 10.2 10^3/uL (4.4-10.8) Red Blood Count 2.40 10^6/uL (4.5-5.90) Hemoglobin 7.1 g/dL (13.5-17.5) Hematocrit 20.6 % (41.0-53.0) Mean Corpuscular Volume 85.8 fL (80.0-100.0) Mean Corpuscular Hemoglobin 29.6 pg (28.0-32.0) Mean Corpuscular Hemoglobin Concent 34.5 g/dL (32.0-36.0) Red Cell Distribution Width 15.0 % (11.8-14.3) Platelet Count 558 10^3/uL (140-450) Mean Platelet Volume 7.9 fL (6.9-10.8) Neutrophils (%) (Auto) 65.7 % (37.0-80.0) Lymphocytes (%) (Auto) 17.3 % (10.0-50.0) Monocytes (%) (Auto) 5.4 % (0.0-12.0) Eosinophils (%) (Auto) 10.8 % (0.0-7.0) Basophils (%) (Auto) 0.8 % (0.0-2.0) Neutrophils # (Auto) 6.7 10 ^3/uL (1.6-8.6) Lymphocytes # (Auto) 1.8 10 ^3/uL (0.4-5.4) Monocytes # (Auto) 0.6 10 ^3/uL (0-1.3) Eosinophils # (Auto) 1.1 10 ^3/uL (0-0.8) Basophils # (Auto) 0.1 10 ^3/uL (0-0.2) Nucleated Red Blood Cells 0.0 % Prothrombin Time 11.1 sec (9.3-11.8) Prothrombin Time INR 1.05 (0.9-1.15) Activated Partial Thromboplast Time 28.5 SEC (24.5-34.5) Sodium Level 126 mmol/L (136-145) Potassium Level 4.0 mmol/L (3.5-5.1) Chloride Level 91 mmol/L (98-107) Carbon Dioxide Level 28 mmol/L (20-31) Anion Gap 7 (5-15) Blood Urea Nitrogen < 5 mg/dL (9-23) Creatinine 0.53 mg/dL (0.700-1.30) Glomerular Filtration Rate Calc 127 mL/min (>90) BUN/Creatinine Ratio 9.4 (10.0-20.0) Serum Glucose 272 mg/dL (74-106) Calcium Level 7.8 mg/dL (8.7-10.4) Phosphorus Level 2.2 mg/dL (2.4-5.1) Magnesium Level 1.6 mg/dL (1.6-2.6) Total Bilirubin < 0.2 mg/dL (0.2-1.0) Direct Bilirubin < 0.1 mg/dL (<0.3) Aspartate Amino Transferase (AST) 9 U/L (13-40) Alanine Aminotransferase (ALT) < 9 U/L (7-40) Alkaline Phosphatase 179 U/L (46-116) Troponin I High Sensitivity < 3 ng/L (</=54) Total Protein 6.0 g/dL (5.7-8.2) Albumin 2.8 g/dL (3.2-4.8) Amylase Level < 20 U/L (30-118) Lipase 18 U/L (12-53) Vancomycin Level Trough 12.5 ug/mL (5-10) Test 01/01/25 00:00 12/31/24 18:35 12/31/24 12:09 12/29/24 09:35 Urine Color Colorless (Yellow) Urine Clarity Turbid (Clear) Urine pH 6.0 (5.0-9.0) Urine Specific [place] 1.017 (1.001-1.035) Urine Protein Negative (Negative) Urine Ketones Negative (Negative) Urine Blood 3+ /uL (Negative) Urine Nitrite Negative (Negative) Urine Bilirubin Negative (Negative) Urine Urobilinogen Normal mg/dL (Negative) Urine Leukocyte Esterase Negative /uL (Negative) Urine RBC 1655 /hpf (0 - 3) Urine Microscopic WBC 7 /HPF (0-3) Urine Squamous Epithelial Cells Few /hpf (<5) Urine Bacteria Few /hpf (None Seen) Urine Mucus Few (None Seen) Urine Glucose 3+ mg/dL (Normal) Differential Total Cells Counted 100.0 (100) Neutrophils % (Manual) 68 (37.0-80.0) Band Neutrophils % (Manual) 2 Lymphocytes % (Manual) 18 (10.0-50.0) Monocytes % (Manual) 4 (0-12) Eosinophils % (Manual) 7 (0-7) Basophils % (Manual) 0 (0.0-2.0) Metamyelocytes % (manual) 1 Myelocytes % (Manual) 0 Promyelocytes % (Manual) 0 Blast Cells % (Manual) 0 Reactive Lymphocytes 0 Platelet Estimate Increased Anisocytosis (manual) Slight Creatine Kinase 31 U/L (46-171) Valproic Acid Level 8.1 ug/mL (50-100) Carbamazepine (Tegretol) Level 4.8 ug/mL (4-12) Test 12/29/24 02:25 12/28/24 07:51 12/26/24 16:20 12/26/24 11:08 Clumped Platelets Few Large Platelets Blood Gas Spontaneous Rate 17 Stool Occult Blood Negative (Negative) Stool Occult Blood Sample #3 (Negative) Iron Level 36 ug/dL (65-175) Total Iron Binding Capacity 267 ug/dL (250-425) Percent Iron Saturation 13.5 % (20-55) Ferritin 253.0 ng/mL (22-322) Test 12/26/24 03:00 12/24/24 10:13 12/19/24 16:35 12/19/24 11:15 Triglycerides Level 273 mg/dL (< 150) Beta-Hydroxybutyric Acid 0.062 mmol/L (< 0.4) Blood Gas Inspiratory Pressure 15.0 Blood Gas Critical Value Read Back yes Blood Gas Notified Whom thomas m d Blood Gas Notified Time [id number] Blood Gas Notified By assistant operations manager miranda bobby Chlamydia trachomatis (GABRIELA) Negative (Negative) Neisseria gonorrhoeae (GABRIELA) Negative (Negative) Lactic Acid Level 1.1 mmol/L (0.4-2.0) Test 12/19/24 07:03 12/17/24 03:30 12/15/24 03:07 12/10/24 03:33 Treponema pallidum Antibody Non-reactive (Negative) Hepatitis A IgM Antibody Negative Hepatitis B Surface Antigen Negative (Negative) Hepatitis B Core IgM Antibody Negative (Negative) Hepatitis C Antibody (Negative) Vitamin B12 Level 1022 pg/mL (211-911) Vitamin D 25-Hydroxy 24.7 ng/mL (30.0-100) Thyroid Stimulating Hormone (TSH) 4.17 uIU/mL (0.55-4.78) Levetiracetam Level 10.9 ug/mL (10.0-40.0) Hemoglobin A1c 10.5 % A1C (<5.7) Test 12/07/24 14:15 12/04/24 11:30 12/01/24 17:06 12/01/24 13:23 HIV (1&2) Antibody Negative (Negative) Ammonia 10 umol/L (11-32) Erythrocyte Sedimentation Rate 7 mm/hr (0-20) C-Reactive Protein High Sensitivity 2.01 mg/dL (<1.0) Macrocytosis Moderate Serum Osmolality 355 mOsm/kg (278-298) Other Laboratory Tests 01/01/25 05:00 Brief Hx & Hospital Course: SAGE BONILLA is a 44-year-old male with past medical history of asthma, CVA, intracerebral hemorrhage, subdural hematoma, (status post M48/M60 TANK DRIVER shunt, 10 years back), depression, diabetes type 1, hypertension, seizure, bipolar disorder brought to the hospital due to altered mental status. Per patient's roommate, he has not been using his medicine since 1 week, and had developed nausea, vomiting and diarrhea since 3 days, and since 1 day has been altered. Denies fever, loss of consciousness, or any trauma. PMHx: asthma, CVA, intracerebral hemorrhage, subdural hematoma, (status post M48/M60 TANK DRIVER shunt, 10 years back), depression, diabetes type 1, hypertension, seizure, bipolar disorder PSHx: M48/M60 TANK DRIVER shunt (10 years back), had removed molar to 3 weeks back, had tracheostomy in 2019 (due to intracerebral hemorrhage) Social history: Smokes marijuana and drink heavy alcohol. Lives with friend at home. At baseline mobile, but does not work, on disability Home medication: Quetiapine, sertraline, gabapentin, insulin NPH, levetiracetam, oxcarbazepine, and hydroxyzine, noncompliant with the medicine family decided for terminal wean and since patient is organ donor, companionate extubation was done on 01/01/2025. patient had pea on 1037 am. pupils were dilated, PEA, no heart sounds. TOD announced on 1042 am. Final Diagnosis/Problems List acute respiratory failure pneumonia septic shock Discharge Disposition: at [facility] ARDEN KELLY RESIDENT Jan 01, 2025 10:45
--- NOTE | 2025-01-01 15:10 | DVHPN2 ---
Consult Progress Note Objective vital signs Vital Sign Date Time Temp Pulse Resp B/P (MAP) Pulse Ox O2 Delivery O2 Flow Rate FiO2 01/01/25 09:00 97.3 68 12 118/77 (91) 96 207.1 114/60 (78) 01/01/25 08:00 Mechanical Ventilator+ 70 70 Total Intake and Output 12/31/24 12/31/24 01/01/25 15:00 23:00 07:00 Intake Total 2248.6 ml 3756.884 ml 2777.560 ml Output Total 4900 ml 1300 ml Balance 2248.6 ml -1143.116 ml 1477.560 ml medications Current Medications Medications Dose Ordered Sig/Misa Route Start Time Stop Time Status Last Admin Dose Admin Dextrose 50 ml UD PRN IV 12/01/24 13:30 Cancel Insulin Glargine 15 units DAILY SC 12/02/24 10:00 Cancel Dextrose 50 ml UD PRN IV 12/01/24 16:45 Cancel Acetaminophen 650 mg Q6HP PRN PO 12/01/24 16:45 12/30/24 12:31 650 MG Famotidine 20 mg DAILY IV 12/02/24 10:00 12/31/24 10:21 20 MG Diagnostic Test (Pha) 1 strip Q6HR 12/02/24 18:00 01/01/25 05:22 1 STRIP Insulin Human Regular Q6HR SC 12/02/24 18:00 01/01/25 05:23 9 UNITS Dextrose 50 ml UD PRN IV 12/02/24 15:45 Lorazepam 1 mg Q5MINP PRN IV 12/03/24 01:45 12/03/24 03:43 1 MG Enteral Nutritional Formula 1,000 ml 40ML/HR GT 12/03/24 09:30 12/30/24 04:02 1,000 ML Levetiracetam 100 ml @ 400 mls/hr BID IV 12/03/24 10:00 UNV Lactulose 30 ml Q6HR GT 12/05/24 08:45 01/01/25 00:09 30 ML Carbamazepine 400 mg BID GT 12/05/24 22:00 12/31/24 21:23 400 MG Sodium Chloride 10 ml QSHIFT@10,22 IV 12/07/24 22:00 12/31/24 21:27 10 ML Multi-Ingredient Ointment 1 applic DAILY TOP 10/4/25 10:00 12/31/24 12:20 1 APPLIC Metoclopramide HCl 10 mg Q8HR IV 12/17/24 16:45 12/31/24 21:23 10 MG Levetiracetam 100 ml @ 400 mls/hr BID IV 12/17/24 22:00 12/31/24 21:26 400 MLS/HR Thiamine HCl 100 mg DAILY PO 12/19/24 10:00 12/31/24 10:12 100 MG Fentanyl Citrate 250 ml @ 2.5 mls/hr Q24H IV 12/20/24 02:45 01/01/25 03:03 30 MLS/HR Valproate Sodium 1000 mg/Sodium Chloride 110 ml @ 110 mls/hr BID IV 12/21/24 22:00 12/31/24 21:39 110 MLS/HR Ketamine HCl 500 mg/Sodium Chloride 500 ml @ 5.382 mls/ hr Q24H IV 12/21/24 15:15 01/01/25 08:42 99.567 MLS/HR Trimethoprim/ Sulfamethoxazole 300 ml @ 0 mls/hr PER PHARMACY IV 12/22/24 18:00 Trimethoprim/ Sulfamethoxazole 20 ml/Dextrose 320 ml @ 212.939 mls/hr Q6HR IV 12/24/24 12:00 01/01/25 05:26 212.939 MLS/HR Furosemide 20 mg DAILY IV 12/26/24 10:00 12/31/24 10:13 20 MG Vancomycin HCl 0 ml @ 0 mls/hr UD IV 12/25/24 16:45 Propofol 100 ml @ 2.709 mls/ hr Q24H IV 12/26/24 00:30 01/01/25 08:39 27.09 MLS/HR Rocuronium [place] 50 mg Q3HP PRN IV 12/26/24 14:15 Midazolam HCl 100 ml @ 1 mls/hr Q24H IV 12/28/24 17:45 01/01/25 04:02 15 MLS/HR Norepinephrine Bitartrate 250 ml @ 1.875 mls/ hr Q24H IV 12/29/24 21:00 12/31/24 21:44 5.625 MLS/HR Vasopressin 20 units/Sodium Chloride 100 ml @ 9 mls/hr Q11H7M IV 12/30/24 15:00 12/31/24 23:11 9 MLS/HR Vancomycin HCl 250 ml @ 200 mls/hr Q10H IV 12/30/24 22:00 01/01/25 04:08 200 MLS/HR Albumin Human 250 ml @ 250 mls/hr ONCE IV 01/01/25 04:00 UNV Hydromorphone HCl 0.5 mg Q34APPM PRN IV 01/01/25 08:45 Lorazepam 1 mg [id number] PRN IV 01/01/25 08:45 laboratory and microbiology Laboratory Tests 01/01/25 05:00 Test 01/01/25 05:00 Range/Units Serum Glucose 272 H 74-106 mg/dL Problem List/Assessment/Plan Problem List/Assessment/Plan patient seen at bedside full note to follow, worsening fevers, FiO2 up to 60%< peep 10 on levophed minimal 3 mcg leukocytosis improving sputum culture redrawn and pending acenitobacter and burkholderia in sputum, 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 prognosis is poor, family agreed to comfort care plan: will fu on pending sputum culture, noted the fetroja was stopped sp 5 days continue bactrim to q 6 hrs given increased creatinine clearance in shock state will monitor clinically defer to pulmonology and core maker helper teams on optimizing airway clearance (mucus plugging removal via bronch, diuresis, mucolytics) Dietary Evaluation Review Comments: 1) Initiate thiamin, folic acid, and MVI supplementation d/t recent ETOH abuse 2) If patient remains NPO > 7 days, consider EN/TPN to meet at least 75% of estimated daily needs 3) If GI is preferred, initiate Glucerna 1.2 @ 60 mL/hr goal rate as tolerated. Flush with 150 mL Q6H. TF regimen will provide 1728 kcals, 86g Pro, and 1759 mL free H2O (including flushes) per 24 hrs. Goal rate will meet ~87% estimated daily energy needs and ~72% estimated daily protein needs 4) Advance to 60g CCHO cardiac diet when medically feasible, pending ST approval 5) Collect HbA1c 6) Refer to outpatient RD/CDCES for diabetes education 7) Follow-up with cardiology, pulmonology, and psychiatry 8) Follow-up with social insurance administrator r/t ETOH abuse 9) Continue to monitor I&O, labs, and skin integrity Expected Outcomes/Goals: 1) patient to receive nutritional support within 7 days of NPO status 2) labs and GI symptoms to improve 3) diet to advance 4) follow-up in 2-3 days MARCELA METZ MD Jan 01, 2025 15:10
--- NOTE | 2025-01-01 15:10 | DVHPN2 ---
Consult Progress Note Date Seen: Dec 31, 2024 Objective vital signs Vital Sign Date Time Temp Pulse Resp B/P (MAP) Pulse Ox O2 Delivery O2 Flow Rate FiO2 01/01/25 09:00 97.3 68 12 118/77 (91) 96 207.1 114/60 (78) 01/01/25 08:00 Mechanical Ventilator+ 70 70 Total Intake and Output 12/31/24 12/31/24 01/01/25 15:00 23:00 07:00 Intake Total 2248.6 ml 3756.884 ml 2777.560 ml Output Total 4900 ml 1300 ml Balance 2248.6 ml -1143.116 ml 1477.560 ml medications Current Medications Medications Dose Ordered Sig/Misa Route Start Time Stop Time Status Last Admin Dose Admin Dextrose 50 ml UD PRN IV 12/01/24 13:30 Cancel Insulin Glargine 15 units DAILY SC 12/02/24 10:00 Cancel Dextrose 50 ml UD PRN IV 12/01/24 16:45 Cancel Acetaminophen 650 mg Q6HP PRN PO 12/01/24 16:45 12/30/24 12:31 650 MG Famotidine 20 mg DAILY IV 12/02/24 10:00 12/31/24 10:21 20 MG Diagnostic Test (Pha) 1 strip Q6HR 12/02/24 18:00 01/01/25 05:22 1 STRIP Insulin Human Regular Q6HR SC 12/02/24 18:00 01/01/25 05:23 9 UNITS Dextrose 50 ml UD PRN IV 12/02/24 15:45 Lorazepam 1 mg Q5MINP PRN IV 12/03/24 01:45 12/03/24 03:43 1 MG Enteral Nutritional Formula 1,000 ml 40ML/HR GT 12/03/24 09:30 12/30/24 04:02 1,000 ML Levetiracetam 100 ml @ 400 mls/hr BID IV 12/03/24 10:00 UNV Lactulose 30 ml Q6HR GT 12/05/24 08:45 01/01/25 00:09 30 ML Carbamazepine 400 mg BID GT 12/05/24 22:00 12/31/24 21:23 400 MG Sodium Chloride 10 ml QSHIFT@ IV 12/07/24 22:00 12/31/24 21:27 10 ML Multi-Ingredient Ointment 1 applic DAILY TOP 12/09/24 10:00 12/31/24 12:20 1 APPLIC Metoclopramide HCl 10 mg Q8HR IV 12/17/24 16:45 12/31/24 21:23 10 MG Levetiracetam 100 ml @ 400 mls/hr BID IV 12/17/24 22:00 12/31/24 21:26 400 MLS/HR Thiamine HCl 100 mg DAILY PO 12/19/24 10:00 12/31/24 10:12 100 MG Fentanyl Citrate 250 ml @ 2.5 mls/hr Q24H IV 12/20/24 02:45 01/01/25 03:03 30 MLS/HR Valproate Sodium 1000 mg/Sodium Chloride 110 ml @ 110 mls/hr BID IV 12/21/24 22:00 12/31/24 21:39 110 MLS/HR Ketamine HCl 500 mg/Sodium Chloride 500 ml @ 5.382 mls/ hr Q24H IV 12/21/24 15:15 01/01/25 08:42 99.567 MLS/HR Trimethoprim/ Sulfamethoxazole 300 ml @ 0 mls/hr PER PHARMACY IV 12/22/24 18:00 Trimethoprim/ Sulfamethoxazole 20 ml/Dextrose 320 ml @ 212.939 mls/hr Q6HR IV 12/24/24 12:00 01/01/25 05:26 212.939 MLS/HR Furosemide 20 mg DAILY IV 12/26/24 10:00 12/31/24 10:13 20 MG Vancomycin HCl 0 ml @ 0 mls/hr UD IV 12/25/24 16:45 Propofol 100 ml @ 2.709 mls/ hr Q24H IV 12/26/24 00:30 01/01/25 08:39 27.09 MLS/HR Rocuronium [place] 50 mg Q3HP PRN IV 12/26/24 14:15 Midazolam HCl 100 ml @ 1 mls/hr Q24H IV 12/28/24 17:45 01/01/25 04:02 15 MLS/HR Norepinephrine Bitartrate 250 ml @ 1.875 mls/ hr Q24H IV 12/29/24 21:00 12/31/24 21:44 5.625 MLS/HR Vasopressin 20 units/Sodium Chloride 100 ml @ 9 mls/hr Q11H7M IV 12/30/24 15:00 12/31/24 23:11 9 MLS/HR Vancomycin HCl 250 ml @ 200 mls/hr Q10H IV 12/30/24 22:00 01/01/25 04:08 200 MLS/HR Albumin Human 250 ml @ 250 mls/hr ONCE IV 01/01/25 04:00 UNV Hydromorphone HCl 0.5 mg [id number] PRN IV 01/01/25 08:45 Lorazepam 1 mg [id number] PRN IV 01/01/25 08:45 laboratory and microbiology Laboratory Tests 01/01/25 05:00 Test 01/01/25 05:00 Range/Units Serum Glucose 272 H 74-106 mg/dL Problem List/Assessment/Plan Problem List/Assessment/Plan patient seen at bedside full note to follow, worsening fevers, FiO2 up to 80%< peep 10 pressor increasing leukocytosis improving sputum culture growing burkholderia, sensitive to bactrim acenitobacter and burkholderia in sputum, 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 Collapse of bilateral lower lobes with superimposed areas of peribronchovascular thickening and interstitial and alveolar edema. plan: will fu on pending sputum culture, noted the fetroja was stopped sp 5 days, considering restarting if hypoxia continues to worsen continue bactrim to q 6 hrs given increased creatinine clearance in shock state will monitor clinically defer to pulmonology and pharmaceutical representative teams on optimizing airway clearance (mucus plugging removal via bronch, diuresis, mucolytics) Plan discussed with: Patient Dietary Evaluation Review Comments: 1) Initiate thiamin, folic acid, and MVI supplementation d/t recent ETOH abuse 2) If patient remains NPO > 7 days, consider EN/TPN to meet at least 75% of estimated daily needs 3) If GI is preferred, initiate Glucerna 1.2 @ 60 mL/hr goal rate as tolerated. Flush with 150 mL Q6H. TF regimen will provide 1728 kcals, 86g Pro, and 1759 mL free H2O (including flushes) per 24 hrs. Goal rate will meet ~87% estimated daily energy needs and ~72% estimated daily protein needs 4) Advance to 60g CCHO cardiac diet when medically feasible, pending ST approval 5) Collect HbA1c 6) Refer to outpatient RD/[facility] for diabetes education 7) Follow-up with cardiology, pulmonology, and psychiatry 8) Follow-up with forensic social worker r/t ETOH abuse 9) Continue to monitor I&O, labs, and skin integrity Expected Outcomes/Goals: 1) patient to receive nutritional support within 7 days of NPO status 2) labs and GI symptoms to improve 3) diet to advance 4) follow-up in 2-3 days MARCELA METZ MD Jan 01, 2025 15:10
[2025-01-01 22:32] LABS: Urine Protein, UAD Negative (Negative)
--- NOTE | 2025-01-02 19:47 | DVHDSRES ---
Discharge Summary Date of Admission Resident Creating Document: ARDEN KELLY RESIDENT Dec 01, 2024 at 16:38 Date of Discharge: Jan 01, 2025 Admitting Diagnosis Metabolic encephalopathy likely due to DKA Labs/Diagnostic Data: Laboratory Results Test 01/01/25 05:55 01/01/25 05:10 01/01/25 05:00 01/01/25 03:00 Blood Gas Specimen Type Arterial Blood Gas Sample Site Arterial line Blood Gas Patient Temperature 37.0 Arterial Blood Date Drawn [id number] Arterial Blood pH 7.381 (7.350-7.450) Arterial Blood Partial Pressure CO2 41.9 mmHg (35.0-48.0) Arterial Blood Partial Pressure O2 94.5 mmHg (83.0-108.0) Arterial Blood HCO3 24.3 mmol/L (21.0-28.0) Arterial Blood Oxygen Saturation 96.0 % (94.0-98.0) Arterial Blood Base Excess -0.8 mmol/L (-2.0-3.0) Arterial Blood Oxyhemoglobin 94.7 % (94.0-98.0) Arterial Blood Carboxyhemoglobin 1.0 % (0.5-1.5) Arterial Blood Methemoglobin 0.4 % (0.0-1.5) Eligio Test N/a Blood Gas Total Hemoglobin 7.90 g/dL (13.5-17.5) Blood Gas Set Respiration Rate 12.0 Blood Gas Modality Vent - ac FiO2 % 70.0 Blood Gas Tidal Volume 400.0 Blood Gas PEEP or CPAP 8.0 POC Glucose 276 mg/dl (70-106) White Blood Count 10.2 10^3/uL (4.4-10.8) Red Blood Count 2.40 10^6/uL (4.5-5.90) Hemoglobin 7.1 g/dL (13.5-17.5) Hematocrit 20.6 % (41.0-53.0) Mean Corpuscular Volume 85.8 fL (80.0-100.0) Mean Corpuscular Hemoglobin 29.6 pg (28.0-32.0) Mean Corpuscular Hemoglobin Concent 34.5 g/dL (32.0-36.0) Red Cell Distribution Width 15.0 % (11.8-14.3) Platelet Count 558 10^3/uL (140-450) Mean Platelet Volume 7.9 fL (6.9-10.8) Neutrophils (%) (Auto) 65.7 % (37.0-80.0) Lymphocytes (%) (Auto) 17.3 % (10.0-50.0) Monocytes (%) (Auto) 5.4 % (0.0-12.0) Eosinophils (%) (Auto) 10.8 % (0.0-7.0) Basophils (%) (Auto) 0.8 % (0.0-2.0) Neutrophils # (Auto) 6.7 10 ^3/uL (1.6-8.6) Lymphocytes # (Auto) 1.8 10 ^3/uL (0.4-5.4) Monocytes # (Auto) 0.6 10 ^3/uL (0-1.3) Eosinophils # (Auto) 1.1 10 ^3/uL (0-0.8) Basophils # (Auto) 0.1 10 ^3/uL (0-0.2) Nucleated Red Blood Cells 0.0 % Prothrombin Time 11.1 sec (9.3-11.8) Prothrombin Time INR 1.05 (0.9-1.15) Activated Partial Thromboplast Time 28.5 SEC (24.5-34.5) Urine Color Light-yellow (Yellow) Urine Clarity Clear (Clear) Urine pH 6.5 (5.0-9.0) Urine Specific [place] 1.020 (1.001-1.035) Urine Protein Negative (Negative) Urine Ketones Negative (Negative) Urine Blood Negative /uL (Negative) Urine Nitrite Negative (Negative) Urine Bilirubin Negative (Negative) Urine Urobilinogen Normal mg/dL (Negative) Urine Leukocyte Esterase Negative /uL (Negative) Urine RBC 3 /hpf (0 - 3) Urine Microscopic WBC 1 /HPF (0-3) Urine Squamous Epithelial Cells Few /hpf (<5) Urine Bacteria None seen /hpf (None Seen) Urine Mucus Few (None Seen) Urine Glucose 4+ mg/dL (Normal) Sodium Level 126 mmol/L (136-145) Potassium Level 4.0 mmol/L (3.5-5.1) Chloride Level 91 mmol/L (98-107) Carbon Dioxide Level 28 mmol/L (20-31) Anion Gap 7 (5-15) Blood Urea Nitrogen < 5 mg/dL (9-23) Creatinine 0.53 mg/dL (0.700-1.30) Glomerular Filtration Rate Calc 127 mL/min (>90) BUN/Creatinine Ratio 9.4 (10.0-20.0) Serum Glucose 272 mg/dL (74-106) Calcium Level 7.8 mg/dL (8.7-10.4) Phosphorus Level 2.2 mg/dL (2.4-5.1) Magnesium Level 1.6 mg/dL (1.6-2.6) Total Bilirubin < 0.2 mg/dL (0.2-1.0) Direct Bilirubin < 0.1 mg/dL (<0.3) Aspartate Amino Transferase (AST) 9 U/L (13-40) Alanine Aminotransferase (ALT) < 9 U/L (7-40) Alkaline Phosphatase 179 U/L (46-116) Creatine Kinase MB <1.0 ng/mL (0.0-10.4) Troponin I High Sensitivity < 3 ng/L (</=54) Total Protein 6.0 g/dL (5.7-8.2) Albumin 2.8 g/dL (3.2-4.8) Amylase Level < 20 U/L (30-118) Lipase 18 U/L (12-53) Vancomycin Level Trough 12.5 ug/mL (5-10) Test 12/31/24 18:35 12/31/24 12:09 12/29/24 09:35 12/29/24 02:25 Differential Total Cells Counted 100.0 (100) Neutrophils % (Manual) 68 (37.0-80.0) Band Neutrophils % (Manual) 2 Lymphocytes % (Manual) 18 (10.0-50.0) Monocytes % (Manual) 4 (0-12) Eosinophils % (Manual) 7 (0-7) Basophils % (Manual) 0 (0.0-2.0) Metamyelocytes % (manual) 1 Myelocytes % (Manual) 0 Promyelocytes % (Manual) 0 Blast Cells % (Manual) 0 Reactive Lymphocytes 0 Platelet Estimate Increased Anisocytosis (manual) Slight Creatine Kinase 31 U/L (46-171) Valproic Acid Level 8.1 ug/mL (50-100) Carbamazepine (Tegretol) Level 4.8 ug/mL (4-12) Clumped Platelets Few Large Platelets Test 12/28/24 07:51 12/26/24 16:20 12/26/24 11:08 12/26/24 03:00 Blood Gas Spontaneous Rate 17 Stool Occult Blood Negative (Negative) Stool Occult Blood Sample #3 (Negative) Iron Level 36 ug/dL (65-175) Total Iron Binding Capacity 267 ug/dL (250-425) Percent Iron Saturation 13.5 % (20-55) Ferritin 253.0 ng/mL (22-322) Triglycerides Level 273 mg/dL (< 150) Beta-Hydroxybutyric Acid 0.062 mmol/L (< 0.4) Test 12/24/24 10:13 12/19/24 16:35 12/19/24 11:15 12/19/24 07:03 Blood Gas Inspiratory Pressure 15.0 Blood Gas Critical Value Read Back yes Blood Gas Notified Whom sheikh joseph lidia Blood Gas Notified Time [id number] Blood Gas Notified By pen ruler operator miranda bobby Chlamydia trachomatis (GABRIELA) Negative (Negative) Neisseria gonorrhoeae (GABRIELA) Negative (Negative) Lactic Acid Level 1.1 mmol/L (0.4-2.0) Treponema pallidum Antibody Non-reactive (Negative) Hepatitis A IgM Antibody Negative Hepatitis B Surface Antigen Negative (Negative) Hepatitis B Core IgM Antibody Negative (Negative) Hepatitis C Antibody (Negative) Test 12/17/24 03:30 12/15/24 03:07 12/10/24 03:33 12/07/24 14:15 Vitamin B12 Level 1022 pg/mL (211-911) Vitamin D 25-Hydroxy 24.7 ng/mL (30.0-100) Thyroid Stimulating Hormone (TSH) 4.17 uIU/mL (0.55-4.78) Levetiracetam Level 10.9 ug/mL (10.0-40.0) Hemoglobin A1c 10.5 % A1C (<5.7) HIV (1&2) Antibody Negative (Negative) Test 12/04/24 11:30 12/01/24 17:06 12/01/24 13:23 Ammonia 10 umol/L (11-32) Erythrocyte Sedimentation Rate 7 mm/hr (0-20) C-Reactive Protein High Sensitivity 2.01 mg/dL (<1.0) Macrocytosis Moderate Serum Osmolality 355 mOsm/kg (278-298) Other Laboratory Tests 01/01/25 05:00 Brief Hx & Hospital Course: SAGE BONILLA is a 44-year-old male with past medical history of asthma, CVA, intracerebral hemorrhage, subdural hematoma, (status post [employer] shunt, 10 years back), depression, diabetes type 1, hypertension, seizure, bipolar disorder brought to the hospital due to altered mental status. Per patient's roommate, he has not been using his medicine since 1 week, and had developed nausea, vomiting and diarrhea since 3 days, and since 1 day has been altered. Denies fever, loss of consciousness, or any trauma. PMHx: asthma, CVA, intracerebral hemorrhage, subdural hematoma, (status post [employer] shunt, 10 years back), depression, diabetes type 1, hypertension, seizure, bipolar disorder PSHx: [employer] shunt (10 years back), had removed molar to 3 weeks back, had tracheostomy in 2019 (due to intracerebral hemorrhage) Social history: Smokes marijuana and drink heavy alcohol. Lives with friend at home. At baseline mobile, but does not work, on disability Home medication: Quetiapine, sertraline, gabapentin, insulin NPH, levetiracetam, oxcarbazepine, and hydroxyzine, noncompliant with the medicine Brief hospital course: The patient was admitted on 12/01 with altered mental status and respiratory failure. Initial evaluation revealed acute metabolic encephalopathy likely secondary to severe diabetic ketoacidosis (DKA) and sepsis. The patient had a complex neurological history including prior intracerebral hemorrhage (status post [employer] shunt), chronic subdural hematoma, and epilepsy. Sedation was initiated for airway management and neurological control, with RASS score noted at -3. The patient developed acute hypoxic respiratory failure due to aspiration pneumonia and Gram-negative pneumonia (Burkholderia cepacia, Klebsiella pneumoniae). Intubation was performed, and ventilator support was initiated. Serial chest imaging showed bilateral haziness. Bronchoscopies were performed on 12/23 and 12/30. Septic shock ensued, requiring broad-spectrum antibiotics with multiple regimen adjustments based on culture data. Blood cultures revealed Gram-positive bacteremia; repeat cultures were obtained. The patient was managed with vancomycin, meropenem, and Bactrim, with Fetroja discontinued. Metabolic derangements including hypokalemia, hyponatremia, hypomagnesemia, and hypophosphatemia were identified and corrected. REYNALDO secondary to volume depletion resolved with supportive care. Endocrine evaluation showed uncontrolled Type 1 diabetes (A1C 10), with resolved DKA. Insulin therapy was initiated with sliding scale and Lantus. Nutritional support was provided via Dobbhoff tube with Glucerna. Refeeding syndrome was suspected and monitored. Family discussion was held in great detail about patient's goals of care and patient's poor prognosis, family understood and wanted to terminally wean. Given patient is organ donor, 1 [facility] take over the patient's care, planned organ harvest was done, patient was compassionately extubated on 01/01/2025, time of at 10:42 a.m. on 01/01/2025. Total time spent 150 minutes. I was available for providing appropriate PRBCs, IV albumin for organ harvesting, available at the time of extubation, pronounce , and informed all information to family members, and Durga. Condition at Discharge: Poor Final Diagnosis/Problems List # Acute Metabolic Encephalopathy: Likely secondary to DKA and sepsis. # History of Intracerebral hemorrhage, status post [employer] shunt. # Chronic subdural hematoma # Hx of Epilepsy. # Acute hypoxic respiratory failure, likely secondary to pneumonia, status post intubation # G -ve Pneumonia due to Burkholderia # Aspiration pneumonia # Possible refeeding syndrome. # Constipation- giving bowel regimen with the lactulose # Acute Kidney Injury Likely secondary to volume depletion; resolved. # Uncontrolled Diabetes Mellitus Type 1. with A1C 10 # Severe DKA Resolved # medication /dietary noncompliance Hypokalemia Hyponatremia Hypomagnesemia Hypophosphatemia Hyperphosphatemia # New skin eruptions: Xerosis/Seborrheic dermatitis, possible drug eruption or infection-related. # Erythematous/scaly rashes on cheeks, face, and neck; no mucosal involvement # Alcohol use disorder. # Possible alcohol withdrawal # Bipolar disorder/depression. # Anemia: Mild, normocytic normochromic- continuously monitoring lab # Severe leukocytosis likely from sepsis- ABX as per ID recommendations # Septic shock Likely secondary to pneumonia # G +/- PNA with Klebsiella pneumoniae (sputum culture 12/01) and Burkholderia cepacia (sputum culture 12/11). # Aspiration pneumonia. # Dental infection # G + bacteremia Discharge Disposition: at Hospital Discharge Instruct/Medications Scheduled Albuterol Sulfate (Albuterol Sulfate Hfa), 1 PUFF INH Q4HR, (Reported) Aripiprazole (Abilify), 15 MG PO DAILY, (Reported) Benztropine Mesylate (Benztropine Mesylate), 1.5 MG PO QAM, (Reported) Cariprazine HCl (Vraylar), 6 MG PO QAM, (Reported) Divalproex Sodium (Divalproex Sodium), 500 MG PO BID, (Reported) Gabapentin (Gabapentin), 1 CAP PO TID, (Reported) Hydroxyzine HCl (Hydroxyzine Hydrochloride), 1 TAB PO BID, (Reported) Insulin NPH (Human) (Isophane) (Humulin N), UNIT SC UD, (Reported) Levetiracetam (Keppra Tablet), 750 MG PO BID, (Reported) Oxcarbazepine (Trileptal), 300 MG PO DAILY, (Reported) Quetiapine Fumarate (Quetiapine Fumarate ER), 1 TAB PO DAILY, (Reported) Sertraline Hcl (Sertraline Hcl), 150 MG PO DAILY, (Reported) Tamsulosin HCl (Tamsulosin Hydrochloride), 1 CAP PO DAILY, (Reported) Discharge Statement: "Patient was advised to return to the ER or call 911 if any headaches, dizziness, shortness of breath, chest pain, abdominal pain, bleeding, fevers, or worsening of medical condition. Patient was counseled about treatment plan, medications, possible side effects, patientverbalized understanding. All questions were answered to the best of my ability. This discharge took greater then 30 minutes in planning, reviewing documentation, counseling the patient, and discussing with other team members." ASSESSMENT ASSESSMENT Assessment acute respiratory failurepneumoniaseptic shock ARDEN KELLY RESIDENT Jan 02, 2025 19:47
== END 2025-01-01 10:42 | DRG 720 ==
LOC: ER 12:13 → EDBD 12:13 → OVERFLOW 16:38 → ICU WEST 20:55
PROVIDERS: ADMIT Internal Medicine; ATTEND Internal Medicine
PROC: 0BH17EZ Insertion of Endotracheal Airway into Trachea, Via Natural or Artificial Opening (ICD-10-PCS; principal; 2024-12-01)
PROC: 5A1955Z Respiratory Ventilation, Greater than 96 Consecutive Hours (ICD-10-PCS; 2024-12-01)
PROC: 02HV33Z Insertion of Infusion Device into Superior Vena Cava, Percutaneous Approach (ICD-10-PCS; 2024-12-01)
PROC: B548ZZA Ultrasonography of Superior Vena Cava, Guidance (ICD-10-PCS; 2024-12-01)
PROC: 02HV33Z Insertion of Infusion Device into Superior Vena Cava, Percutaneous Approach (ICD-10-PCS; 2024-12-07)
PROC: B548ZZA Ultrasonography of Superior Vena Cava, Guidance (ICD-10-PCS; 2024-12-07)
PROC: 0B9M8ZZ Drainage of Bilateral Lungs, Via Natural or Artificial Opening Endoscopic (ICD-10-PCS; 2024-12-23)
PROC: 0B9D8ZX Drainage of Right Middle Lung Lobe, Via Natural or Artificial Opening Endoscopic, Diagnostic (ICD-10-PCS; 2024-12-30)
PROC: 0BCB8ZZ Extirpation of Matter from Left Lower Lobe Bronchus, Via Natural or Artificial Opening Endoscopic (ICD-10-PCS; 2024-12-30)
PROC: 30233N1 Transfusion of Nonautologous Red Blood Cells into Peripheral Vein, Percutaneous Approach (ICD-10-PCS; 2025-01-01)
DX: A41.59 Other Gram-negative sepsis (principal); J96.02 Acute respiratory failure with hypercapnia; N17.0 Acute kidney failure with tubular necrosis; R65.21 Severe sepsis with septic shock; J15.0 Pneumonia due to Klebsiella pneumoniae; J69.0 Pneumonitis due to inhalation of food and vomit; G93.41 Metabolic encephalopathy; J15.69 Pneumonia due to other Gram-negative bacteria; J96.01 Acute respiratory failure with hypoxia; E10.10 Type 1 diabetes mellitus with ketoacidosis without coma; E87.5 Hyperkalemia; E83.39 Other disorders of phosphorus metabolism; I10 Essential (primary) hypertension; F20.9 Schizophrenia, unspecified; G40.909 Epilepsy, unspecified, not intractable, without status epilepticus; E87.0 Hyperosmolality and hypernatremia; L89.629 Pressure ulcer of left heel, unspecified stage; L97.119 Non-pressure chronic ulcer of right thigh with unspecified severity; F41.9 Anxiety disorder, unspecified; J45.909 Unspecified asthma, uncomplicated; F31.9 Bipolar disorder, unspecified; F10.20 Alcohol dependence, uncomplicated; F12.90 Cannabis use, unspecified, uncomplicated; E87.3 Alkalosis; D64.9 Anemia, unspecified; E87.6 Hypokalemia; E87.1 Hypo-osmolality and hyponatremia; E83.42 Hypomagnesemia; K04.7 Periapical abscess without sinus; F17.200 Nicotine dependence, unspecified, uncomplicated; K59.00 Constipation, unspecified; Z16.24 Resistance to multiple antibiotics; J15.9 Unspecified bacterial pneumonia; Y90.9 Presence of alcohol in blood, level not specified; Z91.018 Allergy to other foods; Z86.73 Personal history of transient ischemic attack (TIA), and cerebral infarction without residual deficits; Z79.4 Long term (current) use of insulin; Z98.2 Presence of cerebrospinal fluid drainage device; Z82.5 Family history of asthma and other chronic lower respiratory diseases; Z91.148 Patient's other noncompliance with medication regimen for other reason
CPT/HCPCS: 36415; 36556; 36569; 36600; 70450; 71045; 71260; 74018; 74177; 80048; 80053; 80074; 80076; 80156; 80164; 80202; 81001; 82010; 82140; 82150; 82248; 82270; 82306; 82542; 82550; 82553; 82565; 82607; 82728; 82805; 82962; 83036; 83540; 83550; 83605; 83690; 83735; 83930; 84100; 84443; 84478; 84484; 85007; 85025; 85027; 85610; 85652; 85730; 86141; 86703; 86780; 86850; 86900; 86901; 86920; 87040; 87070; 87077; 87081; 87086; 87186; 87205; 93005; 93306; 94002; 94003; 94640; 96361; 96365; 99291; 99292; G0378; J0692; J1815; J1885; J2185; J2704; J3480; J3490; J7042; J7060; P9047

== ENCOUNTER → 2025-01-01 10:42 | Inpatient (IN) | payer OTHER ==
--- NOTE | 2025-01-01 15:26 | DVHPNRES ---
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 Per patient's roommate, he has not been using his medicine since 1 week, and had developed nausea, vomiting and diarrhea since 3 days, and since 1 day has been altered. Denies fe gissel, loss of consciousness, or any trauma. PMHx: asthma, CVA, intracerebral hemorrhage, subdural hematoma, (status post ASSOCIATE ENTERTAINMENT EDITOR shunt, 10 years back), depression, diabetes type 1, hypertension, seizure, bipolar disorder PSHx: ASSOCIATE ENTERTAINMENT EDITOR shunt (10 years back), had removed molar to 3 weeks back, had tracheostomy in 2019 (due to intracerebral hemorrhage) Social history: Smokes marijuana and drink heavy alcohol. Lives with friend at home. At baseline mobile, but does not work, on disability Home medication: Quetiapine, sertraline, gabapentin, insulin NPH, levetiracetam, oxcarbazepine, and hydroxyzine, noncompliant with the medicine Family discussion was held in great detail about patient's goals of care and patient's poor prognosis, family understood and wanted to terminally wean. Given patient is organ donor, [facility] take over the patient's care, planned organ harvest was done, patient was compassionately extubated on 01/01/2025, time of at 10:42 a.m. on 01/01/2025. Objective Examination General Appearance: Sedated, Intubated on mechanical ventilation with a RASS -3 HEENT: Atraumatic, Mucous membranes moist/pink,ET tube in place Respiratory: Clear to auscultation, Normal air movement,on MV, mild crackles on left side Cardiovascular: Regular rate, Normal S1, Normal S2, No murmurs Abdominal: Active bowel sounds, Soft, no distention, no tenderness : Orellana catheter in place, shows hematuria Extremities: No edema, Normal pulses, No tenderness/swelling Skin: A small 2 x 2 cm scab noticed at the heel of left foot, scaly lesions all over body Neuro: sluggish pupils but reactive, gag/cough reflex intact Problem List/Assessment/Plan Problem List/Assessment/Plan Neurology # Acute Metabolic Encephalopathy: Likely secondary to DKA and sepsis. # History of Intracerebral hemorrhage, status post ASSOCIATE ENTERTAINMENT EDITOR shunt. # Chronic subdural hematoma # Hx of Epilepsy. 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 # Constipation- giving bowel regimen with the lactulose # PUD PPX- Protonix Genitourinary / Kidney # Acute Kidney Injury Likely secondary to volume depletion; resolved. Endocrine # Uncontrolled Diabetes Mellitus Type 1. with A1C 10 # Severe DKA Resolved # medication /dietary noncompliance Metabolic Hypokalemia- Hyponatremia- Hypomagnesemia- Hypophosphatemia- Hyperphosphatemia- Musculoskeletal / Skin # Scab on left heel. # New skin eruptions: Xerosis/Seborrheic dermatitis, possible drug eruption or infection-related. # Erythematous/scaly rashes on cheeks, face, and neck; no mucosal involvement Psych/Behavioral # Alcohol use disorder. # Possible alcohol withdrawal # Bipolar disorder/depression. Hematology # Anemia: Mild, normocytic normochromic- continuously monitoring lab # severe leukocytosis likely from sepsis- ABX as per ID recommendations Infectious Disease # Septic shock Likely secondary to pneumonia # G +/- PNA with Klebsiella pneumoniae (sputum culture 12/01) and Burkholderia cepacia (sputum culture 12/11). # Aspiration pneumonia. # Dental infection # G + bacteremia Compassionate extubation was done, all medication including vasopressor were discontinued, continued on fentanyl and Versed drip as needed. Was present throughout whole process in icu and OR. Patient was terminally wean and, time of was pronounced on 1042 am . Later surgeon by [facility] harvested liver, pancreas, kidneys. Goals of care discussed with the patient family for more than 29 minutes: Full code state Patient care updated to Durga ( friend /next of kin), addressed all concerns. A Long discussion was done with friends and family about patient's condition and they accepted to terminally wean the patient with comfort measures. As patient is a organ donor [facility] was contacted, family was informed about patient being organ donor and understood the plan of care. Critical care time spent excluding procedures 152 minutes. Time spent counseling the family members, patient was taken to OR, terminal extubation was done, time of pronounced, harvesting organ was done, ordered PRBCs at albumin for the same reason. Time of announced on 1042 a.m. on 01/01/2025 Case discussed and supervised by Dr. Valentino Plan discussed with: Other (sister, Durga (friend)) Date of Service: Jan 01, 2025 Billing Provider: APRIL VALENTINO MD Common Visit Codes: 01799-[id number] CARE 30-74 MIN, [id number] CARE-EACH +30MIN (x3) ARDEN KELLY Jan 01, 2025 15:26 APRIL VALENTINO MD Jan 01, 2025 20:05
--- NOTE | 2025-01-01 15:27 | DVHDS2 ---
Summary Date of Admission Jan 01, 2025 at 10:42 Date and Time of Expiration: Jan 01, 2025 (PEA at 1037 on 01/01/2025TOD at 1042 on 01/01/2025.) 10:42 (PEA at 1037 on 01/01/2025TOD at 1042 on 01/01/2025.) Reason for Admission: Metabolic encephalopathy likely due to DKA Brief Hx & Hospital Course: SAGE BONILLA is a 44-year-old male with past medical history of asthma, CVA, intracerebral hemorrhage, subdural hematoma, (status post [employer] shunt, 10 years back), depression, diabetes type 1, hypertension, seizure, bipolar disorder bro ught to the hospital due to altered mental status. Per patient's roommate, he has not been using his medicine since 1 week, and had developed nausea, vomiting and diarrhea since 3 days, and since 1 day has been altered. Denies fever, loss of consciousness, or any trauma. PMHx: asthma, CVA, intracerebral hemorrhage, subdural hematoma, (status post [employer] shunt, 10 years back), depression, diabetes type 1, hypertension, seizure, bipolar disorder PSHx: [employer] P[employer] shunt (10 years back), had removed molar to 3 weeks back, had tracheostomy in 2019 (due to intracerebral hemorrhage) Social history: Smokes marijuana and drink heavy alcohol. Lives with friend at home. At baseline mobile, but does not work, on disability Home medication: Quetiapine, sertraline, gabapentin, insulin NPH, levetiracetam, oxcarbazepine, and hydroxyzine, noncompliant with the medicine Brief hospital course: The patient was admitted on 12/01 with altered mental status and respiratory failure. Initial evaluation revealed acute metabolic encephalopathy likely secondary to severe diabetic ketoacidosis (DKA) and sepsis. The patient had a complex neurological history including prior intracerebral hemorrhage (status post [employer] shunt), chronic subdural hematoma, and epilepsy. Sedation was initiated for airway management and neurological control, with RASS score noted at -3. The patient developed acute hypoxic respiratory failure due to aspiration pneumonia and Gram-negative pneumonia (Burkholderia cepacia, Klebsiella pneumoniae). Intubation was performed, and ventilator support was initiated. Serial chest imaging showed bilateral haziness. Bronchoscopies were performed on 12/23 and 12/30. Septic shock ensued, requiring broad-spectrum antibiotics with multiple regimen adjustments based on culture data. Blood cultures revealed Gram-positive bacteremia; repeat cultures were obtained. The patient was managed with vancomycin, meropenem, and Bactrim, with Fetroja discontinued. Metabolic derangements including hypokalemia, hyponatremia, hypomagnesemia, and hypophosp hatemia were identified and corrected. REYNALDO secondary to volume depletion resolved with supportive care. Endocrine evaluation showed uncontrolled Type 1 diabetes (A1C 10), with resolved DKA. Insulin therapy was initiated with sliding scale and Lantus. Nutritional support was provided via Dobbhoff tube with Glucerna. Refeeding syndrome was suspected and monitored. Family discussion was held in great detail about patient's goals of care and patient's poor prognosis, family understood and wanted to terminally wean. Given patient is organ donor, 1 [facility] take over the patient's care, planned organ harvest was done, patient was compassionately extubated on 01/01/2025, time of at 10:42 a.m. on 01/01/2025. Total time spent 150 minutes. I was available for providing appropriate PRBCs, IV albumin for organ harvesting, available at the time of extubation, pronounce , and informed all information to family members, and Durga. Final Diagnosis/Problems List # Acute Metabolic Encephalopathy: Likely secondary to DKA and sepsis. # History of Intracerebral hemorrhage, status post [employer] shunt. # Chronic subdural hematoma # Hx of Epilepsy. # Acute hypoxic respiratory failure, likely secondary to pneumonia, status post intubation # G -ve Pneumonia due to Burkholderia # Aspiration pneumonia # Possible refeeding syndrome. # Constipation- giving bowel regimen with the lactulose # Acute Kidney Injury Likely secondary to volume depletion; resolved. # Uncontrolled Diabetes Mellitus Type 1. with A1C 10 # Severe DKA Resolved # medication /dietary noncompliance Hypokalemia Hyponatremia Hypomagnesemia Hypophosphatemia Hyperphosphatemia # New skin eruptions: Xerosis/Seborrheic dermatitis, possible drug eruption or infection-related. # Erythematous/scaly rashes on cheeks, face, and neck; no mucosal involvement # Alcohol use disorder. # Possible alcohol withdrawal # Bipolar disorder/depression. # Anemia: Mild, normocytic normochromic- continuously monitoring lab # Severe leukocytosis likely from sepsis- ABX as per ID recommendations # Septic shock Likely secondary to pneumonia # G +/- PNA with Klebsiella pneumoniae (sputum culture 12/01) and Burkholderia cepacia (sputum culture 12/11). # Aspiration pneumonia. # Dental infection # G + bacteremia Discharge Disposition: at Hospital [address] ARDEN KELLY RESIDENT Jan 01, 2025 15:27 APRIL VALENTINO MD Jan 01, 2025 20:06
== END | DRG 871 ==
LOC: ICU WEST 10:42
PROVIDERS: ADMIT Internal Medicine; ATTEND Internal Medicine
DX: A41.59 Other Gram-negative sepsis (principal); E10.10 Type 1 diabetes mellitus with ketoacidosis without coma; G93.41 Metabolic encephalopathy; R65.21 Severe sepsis with septic shock; J69.0 Pneumonitis due to inhalation of food and vomit; J15.69 Pneumonia due to other Gram-negative bacteria; J96.01 Acute respiratory failure with hypoxia; J15.0 Pneumonia due to Klebsiella pneumoniae; E87.1 Hypo-osmolality and hyponatremia; N17.9 Acute kidney failure, unspecified; E83.39 Other disorders of phosphorus metabolism; E83.42 Hypomagnesemia; E87.6 Hypokalemia; F31.9 Bipolar disorder, unspecified; G40.909 Epilepsy, unspecified, not intractable, without status epilepticus; I10 Essential (primary) hypertension; J45.909 Unspecified asthma, uncomplicated; K59.00 Constipation, unspecified; L21.9 Seborrheic dermatitis, unspecified; L85.3 Xerosis cutis; D64.9 Anemia, unspecified; E86.9 Volume depletion, unspecified; K04.7 Periapical abscess without sinus; Z86.73 Personal history of transient ischemic attack (TIA), and cerebral infarction without residual deficits; Z79.4 Long term (current) use of insulin; Z91.119 Patient's noncompliance with dietary regimen due to unspecified reason; Z98.2 Presence of cerebrospinal fluid drainage device
CPT/HCPCS: G0378